=== PATIENT | female | born 1930 | race Caucasian/White ===

== ENCOUNTER → 2016-04-14 | Outpatient (CLI) | payer MEDICARE ==
[~2016-04-14] MED LIST: ALPR0.25 PO; ARTHRITIS PILL PO; CEFD300C3 PO; CEFU250T80 PO; CEFU500T63 PO; FLUC150T2 PO; FLUC200T PO; FURO-124 PO; LATA1OIL MC; LATA2.5D5; LOSA50TA36 PO; NYST1000 PO; OMEP40CA36 PO; PHEN-640 PO; SUCR1TAB PO
--- OUTSIDE RECORDS SUMMARY | 2016-04-14 08:19 | XMS REPORT | Continuity of Care Document ---
Author Author [facility] Organization [facility] Address Unknown Phone Unavailable Care Team Providers [employer] G[employer] Name Role Phone NO, LOCAL PHYSICIAN PCP Unavailable Insurance Providers Payer Name Policy Number Subscriber Name Relationship [employer] [id number] Marguerite Multani 18 Self / Same As Patient [facility] Advantage [facility] [id number] Marguerite Multani 18 Self / Same As Patient Advance Directives Directive Response Recorded Date/Time Advance Directives No 03/28/16 9:55am Resuscitation Status Full Code 03/28/16 9:55am Chief Complaint and Reason for Visit Chief Complaint -Female Reason for Visit Urinary tract infection Problems Active Problems Medical Problem Onset Date Status Urinary tract infection Unknown Acute Medications Current Home Medications Medication Dose Units Route Directions Days/Qty Instructions Start Date Furosemide 40 Mg 40 Mg Oral Daily 03/28/16 [Arthritis Pill] Unknown Dose Oral Daily And Prn 03/28/16 Social History Social History Problem Response Recorded Date/Time Alcohol Use Denies Use 03/28/2016 9:55am Recreational Drug Use No 03/28/2016 9:55am Recent Foreign Travel No 03/28/2016 9:55am Recent Infectious Disease Exposure No 03/28/2016 9:55am Hospitalization with Isolation Denies 03/28/2016 9:55am Smoking Status Never a Smoker 03/28/2016 9:55am Recent Hopitalizations No 03/28/2016 9:55am Hospitalization with Isolation Denies 03/28/2016 9:55am Query Response Start Date Stop Date Smoking Status Never a Smoker Hospital Discharge Instructions No hospital discharge instructions. Plan of Care Discharge Date 03/28/16 11:30am Disposition 01 HOME, SELF-CARE Condition at Discharge Improved Prescriptions See Medication Section Referrals NO,LOCAL PHYSICIAN - Primary Care Physician MAUREEN HUGHES MD - Additional Instructions/Education Antibiotic prescribed. Close follow-up with Dr. Hughes. Return if any problems. All discharge instructions reviewed with patient and/or family. Voiced understanding. Functional Status No functional status results. Allergies, Adverse Reactions, Alerts Allergen Type Severity Reaction Status Last Updated Sulfa (Sulfonamide Antibiotics) ([id number]) Allergy Mild Active nitrofurantoin ([id number]) Adverse Reaction Unknown NAUSEA Active Immunizations No immunization records. Vital Signs Acute Vital Signs Vital Response Date/Time Temperature (Fahrenheit) 97.8 degrees F (97.6 - 99.5) 03/28/2016 11:22am Temperature (Calculated Celsius) 36.86693 degrees C (36.4 - 37.5) 03/28/2016 11:22am Pulse Rate (adult) 82 bpm (60 - 90) 03/28/2016 11:22am Respiratory Rate 18 bpm ( - 24) 03/28/2016 11:22am O2 Sat by Pulse Oximetry 98 % (88 - 100) 03/28/2016 11:22am Blood Pressure 128/70 mm Hg 03/28/2016 11:22am Blood Pressure Mean 89 mm Hg 03/28/2016 9:55am Pain Numeric Pain Scale 3 03/28/2016 11:22am Height (Feet) 5 feet 03/28/2016 9:55am Height (Inches) 3 inches 03/28/2016 9:55am Height (Calculated Centimeters) 160.990884 cm 03/28/2016 9:55am Weight (Pounds) 155 pounds 03/28/2016 9:55am Weight (Calculated Kilograms) 70.251794 kilograms 03/28/2016 9:55am Capillary Refill Capillary Refill Less Than 3 Seconds 03/28/2016 9:55am Height 5 ft 3 in Weight 155 lb Body Mass Index 27.5 kg/m^2 Results Laboratory Results Test Name Result Units Flags Reference Collection Date/Time Result Date/ Time Comments Urine Color YELLOW 03/28/2016 10:10am 03/28/2016 10:42am Urine Clarity CLEAR 03/28/2016 10:10a03/28/2016 10:42am Urine pH 8 5-9 03/28/2016 10:10am 03/28/2016 10:42am Urine Specific [place] 1.010 * 1.016-1.022 03/28/2016 10:10am 2015 10:42am Urine Protein NEGATIVE NEGATIVE 03/28/2016 10:10a03/28/2016 10: 42am Urine Glucose (UA) NEGATIVE NEGATIVE 03/28/2016 10:10a03/28/2016 10 :42am Urine RBC (Auto) NEGATIVE NEGATIVE 03/28/2016 10:10a03/28/2016 10: 42am Urine Ketones NEGATIVE NEGATIVE 03/28/2016 10:10a03/28/2016 10: 42am Urine Nitrite NEGATIVE NEGATIVE 03/28/2016 10:10a03/28/2016 10: 42am Urine Bilirubin NEGATIVE NEGATIVE 03/28/2016 10:10a03/28/2016 10: 42am Urine Urobilinogen NORMAL MG/DL NORMAL 03/28/2016 10:10a03/28/2016 10 :42am Urine Leukocyte Esterase 1+ * NEGATIVE 03/28/2016 10:10a03/28/2016 10 :42am Urine RBC NONE /HPF 03/28/2016 10:10a03/28/2016 10:42am Urine WBC 2-5 /HPF 03/28/2016 10:10am 03/28/2016 10:42am Urine Bacteria FEW /HPF * 03/28/2016 10:10am 03/28/2016 10:42am Urine Squamous Epithelial Cells RARE /HPF 03/28/2016 10:10am 2015 10:42am Urine Crystals NONE /LPF 03/28/2016 10:10am 03/28/2016 10:42am Urine Casts NONE /LPF 03/28/2016 10:10a03/28/2016 10:42am Urine Mucus NEGATIVE /LPF 03/28/2016 10:10am 03/28/2016 10:42am Urine Culture Indicated NO 03/28/2016 10:10am 03/28/2016 10:42am Procedures No known history of procedures. Encounters Encounter Location Arrival/Admit Date Discharge/Depart Date Attending Provider Departed Emergency Room [facility] 03/28/16 9:48am 03/28 11:30am CATHRYN BERNABE MD Recent Diagnosis
--- NOTE | 2016-04-14 09:05 | Diagnostic Imaging Report ---
PROCEDURE: CT abdomen and pelvis without contrast. TECHNIQUE: Multiple contiguous axial images were obtained through the abdomen and pelvis without the use of intravenous contrast. INDICATION: Bladder infections and diarrhea. FINDINGS: The lung bases appear clear. The liver demonstrates a hypodense lesion in the left hepatic lobe measuring 1 cm with low-attenuation favored to be a cyst. Scattered calcified granulomas are seen. Cholecystectomy clips noted. The spleen is not enlarged. The pancreas and the adrenal glands appear unremarkable. The kidneys demonstrate no hydronephrosis or stones. There is a 2.6-cm cystic lesion in the left kidney which appears fairly homogeneous. No obvious solid mass demonstrated on this unenhanced exam. There are multiple calcifications in the pelvis compatible with phleboliths. The uterus and adnexa appear grossly unremarkable. There is diverticulosis. No diverticulitis. The appendix is normal. No free fluid or fluid collection of significance is seen in the abdomen or pelvis. The abdominal aorta is normal in caliber. No para-aortic significantly enlarged lymph node is seen. The osseous structures demonstrate degenerative changes. IMPRESSION: 1. No urinary tract stones or hydronephrosis. 2. Diverticulosis. No diverticulitis. Dictated by: Dictated on workstation # [id number]
== END ==
LOC: RAD 08:16
PROVIDERS: ATTEND Urology
DX: N39.0 Urinary tract infection, site not specified (principal); K57.30 Diverticulosis of large intestine without perforation or abscess without bleeding
CPT/HCPCS: 74176

== ENCOUNTER 2016-06-28 10:21 | Emergency (ER) | payer MEDICARE ==
[~2016-06-28] VITALS: Ht 160 cm; Wt 68.0 kg
[~2016-06-28 10:21] MED LIST changes: -ALPR0.25 PO; -CEFD300C3 PO; -CEFU250T80 PO; -CEFU500T63 PO; -FLUC150T2 PO; -FLUC200T PO; -LATA1OIL MC; -LATA2.5D5; -LOSA50TA36 PO; -NYST1000 PO; -OMEP40CA36 PO; -PHEN-640 PO; -SUCR1TAB PO
[2016-06-28] MEDS ORDERED: LATA2.5D5 (10:38)
[2016-06-28] MEDS ORDERED: SUCR1TAB PO (10:42)
[2016-06-28] MEDS ORDERED: NYST1000 PO (10:42)
[2016-06-28] MEDS ORDERED: OMEP40CA36 PO (10:42)
[2016-06-28] MEDS ORDERED: ALPR0.25 PO (10:42)
[2016-06-28] MEDS ORDERED: CEFD300C3 PO (10:42)
[2016-06-28] MEDS ORDERED: LATA1OIL MC (10:42)
[2016-06-28] MEDS ORDERED: FLUC150T2 PO (10:42)
[2016-06-28] MEDS ORDERED: CEFU250T80 PO (10:42)
[2016-06-28] MEDS ORDERED: LOSA50TA36 PO (10:42)
[2016-06-28 11:02] LABS: BILIRUBIN,URINE NEGATIVE (NEGATIVE); KETONES,URINE NEGATIVE (NEGATIVE); LEUKOCYTE ESTERASE ,URINE NEGATIVE (NEGATIVE); NITRITE,URINE NEGATIVE (NEGATIVE); PH,URINE 7 (5-9); PROTEIN,URINE NEGATIVE (NEGATIVE); UROBILINOGEN,URINE NORMAL (NORMAL)
[2016-06-28 11:12] LABS: WBC,URINE RARE /HPF
[2016-06-28 11:34] LABS: BASOPHILS % (AUTO) 0 % (0-10); EOSINOPHILS # (AUTO) 0.1 10^3/uL (0.0-0.3); EOSINOPHILS % (AUTO) 1 % (0-10); LYMPHOCYTES # (AUTO) 1.1 X 10^3 (1.0-4.0); LYMPHOCYTES % (AUTO) 14 % (12-44); MEAN CORPUSCULAR HEMOGLOBIN 34 PG (25-34); MEAN CORPUSCULAR HGB CONC 35 G/DL (32-36); MEAN CORPUSCULAR VOLUME 97 FL (80-99); MEAN PLATELET VOLUME 9.6 FL (7.4-10.4); MONOCYTES # (AUTO) 0.9 X 10^3 (0.0-1.0); MONOCYTES % (AUTO) 11 % (0-12); NEUTROPHILS # (AUTO) 6.2 X 10^3 (1.8-7.8); NEUTROPHILS % (AUTO) 75 % (42-75); PLATELET COUNT 265 10^3/uL (130-400); RED BLOOD COUNT 3.89 10^6/uL (4.35-5.85); RED CELL DISTRIBUTION WIDTH 13.2 % (10.0-14.5); WHITE BLOOD COUNT 8.3 10^3/uL (4.3-11.0)
[2016-06-28 11:43] LABS: PROTHROMBIN TIME PATIENT 12.9 SEC (12.2-14.7)
--- NOTE | 2016-06-28 11:48 | Diagnostic Imaging Report ---
INDICATION: Weakness. FINDINGS: Examination of the chest in the PA and lateral projections fails to reveal evidence of active parenchymal pathology or pleural effusion. The cardiac silhouette is normal. IMPRESSION: Negative chest. Dictated by: Dictated on workstation # [id number]
--- NOTE | 2016-06-28 11:48 | Diagnostic Imaging Report ---
PROCEDURE: CT head without contrast. TECHNIQUE: Multiple contiguous axial images were obtained through the brain without the use of intravenous contrast. INDICATION: UTI. FINDINGS: Noncontrasted study shows diffuse cortical atrophy. Periventricular white matter changes are present. Ventricles are not dilated. There is no intracranial hemorrhage. There is no extra-axial fluid collection. Basal cisterns are clear. Pituitary is not enlarged. CP angles appear normal. Mastoid air cells are well-aerated. There is some mucosal edema of the ethmoid sinuses. Bone windows show no evidence of calvarial fracture. IMPRESSION: 1. Generalized cortical atrophy with white matter changes consistent with chronic small vessel disease. No acute abnormalities are demonstrated. Dictated by: Dictated on workstation # [id number]
--- NOTE | 2016-06-28 11:53 | ED General ---
General Chief Complaint: -Female Stated Complaint: WEAKNESS,POSSIBLE BLADDER INFECTION Nursing Triage Note: AMBULATED TO ROOM 10 WITHOUT DIFFICULTY AND ABLE TO GO TO THE BATHROOM AND GIVE A SAMPLE WITHOUT HELP. CHRONIC HX OF UTI. PT STATES SHE WAS DX ON WEDNESDAY WITH A UTI AND GIVEN A SHOT AND PUT ON CEFDINIR. PT STATES SHE WOKE UP FEELING REAL WEAK BUT HAS BEEN SICK SINCE THE MIDDLE OF JAN. STATES IT NOYOLA WHEN SHE PEES. Nursing Sepsis Screen: No Definite Risk Source of Information: Patient (DIFFICULT , VAGUE HISTORIAN) History of Present Illness Time Seen by Provider: 10:35 Initial Comments HAS HAD WEAKNESS OFF AND ON SINCE JANUARY AND HAS BEEN WEAK AGAIN TODAY SINCE WAKING STATES SHE HAS HAD LOW SODIUM IN THE PAST, BUT DRINKS 2 SMALL GLASSES OF PEDIALYTE A DAY, ALSO DRINKS "ALOT" OF WATER--PT STATES AT LEAST 3---8OZ GLASSES OF WATER A DAY PT HAS CHRONIC UTI'S AND BEGAN HAVING BURNING ON URINATION YESTERDAY PT WAS SEEN BY DR. NI WEDNESDAY FOR ROUTINE EXAM, LAB AND UA WERE DONE. PT STATES THE OFFICE CALLED HER ON WEDNESDAY AFTERNOON AND TOLD HER SHE HAD A UTI AND WENT TO OFFICE AND GOT A SHOT OF ANTIBIOTICS AND GIVEN RX FOR CEFUROXIME. PT STATES SHE HAS SEEN DR. HUGHES AND HE GAVE HER RX FOR MAINTENANCE ANTIBIOTIC, WHICH SHE HAS NOT STARTED YET PT WENT TO [facility] 1 WEEK AGO TODAY AND WAS DX AND TREATED FOR THRUSH WITH ONE DOSE OF DIFLUCAN. DR. NI WROTE RX FOR MORE PILLS, WHICH PT IS STILL TAKING. NO ABDOMINAL PAIN OR BACK PAIN C/O NAUSEA OFF AND ON ,BUT NO PROBLEMS EATING AND ATE BREAKFAST THIS MORNING NO VOMITING OR DIARRHEA NO FEVER STATES SHE HASN'T BEEN ABLE TO SLEEP FOR THE LAST 2 NIGHTS, FOR NO PARTICULAR REASON ( YET STATES SHE FELT WEAK WHEN SHE WOKE UP THIS AM) . PCP: DR. NI Allergies and Home Medications Allergies Coded Allergies: Sulfa (Sulfonamide Antibiotics) (Verified Allergy, Mild, 03/28/16) nitrofurantoin (Verified Adverse Reaction, Unknown, NAUSEA, 03/28/16) Home Medications Alprazolam 0.25 Mg Tablet, 0.25 MG PO HS, (Reported) Cefdinir 300 Mg Capsule, 300 MG PO BID, (Reported) Cefuroxime Axetil 250 Mg Tablet, 250 MG PO BID, (Reported) Fluconazole 150 Mg Tablet, 150 MG PO WEEK, (Reported) Latanoprost 2.5 Ml Drops, #3 (Reported) Latanoprost 1 Gm Oil, 1 GM MC HS, (Reported) Losartan Potassium 50 Mg Tablet, 50 MG PO DAILY, (Reported) Nystatin 100,000 Unit/1 Ml Oral.susp, 100,000 UNIT PO QID, (Reported) Omeprazole 40 Mg Capsule.dr, 40 MG PO DAILY, (Reported) Sucralfate 1 Gm Tablet, 1 GM PO TIDAC, (Reported) Constitutional: see HPI, No chills, No diaphoresis, No dizziness, No fever, malaise, weakness EENTM: other (NO THRUSH SYMPTOMS AT THIS TIME), see HPI Respiratory: no symptoms reported Cardiovascular: no symptoms reported Gastrointestinal: see HPI, No abdominal pain, No hematemesis, No loss of appetite, No melena, nausea, No vomiting Genitourinary: see HPI Musculoskeletal: no symptoms reported, No back pain, No muscle pain, No neck pain Skin: no symptoms reported Psychiatric/Neurological: No Symptoms Reported, Denies Headache, Denies Numbness, Denies Paresthesia, Denies Seizure, Denies Tingling, Denies Tremors, Denies Weakness Hematologic/Lymphatic: No Symptoms Reported Immunological/Allergic: no symptoms reported Past Dxvqdmf-Rsiruj-Gnhcmw Hx Patient Social History Alcohol Use: Denies Use Recreational Drug Use: No Smoking Status: Never a Smoker Recent Foreign Travel: No Contact w/Someone Who Travel: No Recent Infectious Disease Expo: No Recent Hopitalizations: No Immunizations Up To Date Date of Influenza Vaccine: Jan 04, 2016 Surgeries HX Surgeries: Yes Surgeries: Adenoidectomy, Gallbladder, Tonsillectomy Respiratory Hx Respiratory Disorders: No Cardiovascular Hx Cardiac Disorders: Yes Cardiac Disorders: Hypertension Neurological Hx Neurological Disorders: No Gastrointestinal Hx Gastrointestinal Disorders: Yes Gastrointestinal Disorders: Gastroesophageal Reflux Musculoskeletal Hx Musculoskeletal Disorders: Yes Musculoskeletal Disorders: Arthritis Endocrine Hx Endocrine Disorders: No HEENT HX ENT Disorders: No Cancer Hx Cancer: No Psychosocial Hx Psychiatric Problems: Yes Behavioral Health Disorders: Anxiety Physical Exam Vital Signs Vital Sign - Last 12Hours 06/28/16 10:30 Temp 99.0 Pulse 81 Resp 16 B/P (MAP) 133/100 Capillary Refill : Less Than 3 Seconds General Appearance: No Apparent Distress, WD/WN, Other (SMILING, VERY TALKATIVE , AMBULATES AND CHANGES POSITIONS VERY QUICKLY WITHOUT DIFFICULTY. DOES NOT OUTWARDLY APPEAR WEAK OR LETHARGIC) HEENT: PERRL/EOMI, Normal ENT Inspection, Other (NO EVIDENCE OF THRUSH AT THIS TIME) Neck: Full Range of Motion, Normal Inspection, Non Tender, Supple, Carotid Bruit (ON RIGHT) Respiratory: Normal Breath Sounds, No Accessory Muscle Use, No Respiratory Distress Cardiovascular: Regular Rate, Rhythm, No Edema, No JVD, No Murmur, Normal Peripheral Pulses Gastrointestinal: Normal Bowel Sounds, No Organomegaly, No Pulsatile Mass, Non Tender, Soft Back: Normal Inspection, No CVA Tenderness, No Vertebral Tenderness Extremity: Normal Capillary Refill, Normal Inspection, Normal Range of Motion, Non Tender, No Calf Tenderness, Pedal Edema (TRACE) Neurologic/Psychiatric: Alert, Oriented x3, No Motor/Sensory Deficits, Normal Mood/Affect, 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 services 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-XII Norm as Tested Reflexes: 2+ Bicep (R), 2+ Bicep (L), 2+ Knee (R), 2+ Knee (L) Skin: Normal Color, Warm/Dry Progress/Results/Core Measures Results/Orders Lab Results Laboratory Tests Test 06/28/16 10:25 06/28/16 11:20 Range/Units Urine Color YELLOW Urine Clarity CLEAR Urine pH 7 5-9 Urine Specific [place] 1.010 L 1.016-1.022 Urine Protein NEGATIVE NEGATIVE Urine Glucose (UA) NEGATIVE NEGATIVE Urine Ketones NEGATIVE NEGATIVE Urine Nitrite NEGATIVE NEGATIVE Urine Bilirubin NEGATIVE NEGATIVE Urine Urobilinogen NORMAL NORMAL MG/DL Urine Leukocyte Esterase NEGATIVE NEGATIVE Urine RBC (Auto) NEGATIVE NEGATIVE Urine RBC NONE /HPF Urine WBC RARE /HPF Urine Squamous Epithelial Cells 5-10 /HPF Urine Crystals NONE /LPF Urine Bacteria NEGATIVE /HPF Urine Casts NONE /LPF Urine Mucus NEGATIVE /LPF Urine Culture Indicated NO White Blood Count 8.3 4.3-11.0 10^3/uL Red Blood Count 3.89 L 4.35-5.85 10^6/uL Hemoglobin 13.3 11.5-16.0 G/DL Hematocrit 38 35-52 % Mean Corpuscular Volume 97 80-99 FL Mean Corpuscular Hemoglobin 34 25-34 PG Mean Corpuscular Hemoglobin Concent 35 32-36 G/DL Red Cell Distribution Width 13.2 10.0-14.5 % Platelet Count 265 130-400 10^3/uL Mean Platelet Volume 9.6 7.4-10.4 FL Neutrophils (%) (Auto) 75 42-75 % Lymphocytes (%) (Auto) 14 12-44 % Monocytes (%) (Auto) 11 0-12 % Eosinophils (%) (Auto) 1 0-10 % Basophils (%) (Auto) 0 0-10 % Neutrophils # (Auto) 6.2 1.8-7.8 X 10^3 Lymphocytes # (Auto) 1.1 1.0-4.0 X 10^3 Monocytes # (Auto) 0.9 0.0-1.0 X 10^3 Eosinophils # (Auto) 0.1 0.0-0.3 10^3/uL Basophils # (Auto) 0.0 0.0-0.1 10^3/uL Prothrombin Time 12.9 12.2-14.7 SEC INR Comment 1.0 0.8-1.4 Activated Partial Thromboplast Time 22 L 24-35 SEC Sodium Level 129 L 135-145 MMOL/L Potassium Level 4.3 3.6-5.0 MMOL/L Chloride Level 96 L 98-107 MMOL/L Carbon Dioxide Level 23 21-32 MMOL/L Anion Gap 10 5-14 MMOL/L Blood Urea Nitrogen 19 H 7-18 MG/DL Creatinine 0.84 0.60-1.30 MG/DL Estimat Glomerular Filtration Rate > 60 BUN/Creatinine Ratio 23 Glucose Level 97 70-105 MG/DL Calcium Level 9.2 8.5-10.1 MG/DL Magnesium Level 1.8 1.8-2.4 MG/DL Total Bilirubin 0.4 0.1-1.0 MG/DL Aspartate Amino Transf (AST/SGOT) 22 5-34 U/L Alanine Aminotransferase (ALT/SGPT) 18 0-55 U/L Alkaline Phosphatase 47 40-136 U/L Troponin I < 0.30 <0.30 NG/ML Total Protein 6.3 L 6.4-8.2 G/DL Albumin 3.9 3.2-4.5 G/DL TSH [place] Testing 0.85 0.35-4.94 UIU/ML My Orders Orders - FRANCHESCA COTTER DO Ua Culture If Indicated (06/28/16 10:33) Saline Lock/Iv-Start (06/28/16 11:05) Ekg Tracing (06/28/16 11:05) Monitor-Rhythm Ecg Trace Only (06/28/16 11:05) Ct Head Wo (06/28/16 11:05) Cbc With Automated Diff (06/28/16 11:05) Comprehensive Metabolic Panel (06/28/16 11:05) Magnesium (06/28/16 11:05) Protime With Inr (06/28/16 11:05) Partial Thromboplastin Time (06/28/16 11:05) Thyroid Analyzer (06/28/16 11:05) Troponin I (06/28/16 11:05) Chest Pa/Lat (2 View) (06/28/16 11:05) Saline Lock/Iv-Start (06/28/16 12:06) Ns Iv 1000 Ml (Sodium Chloride 0.9%) (06/28/16 12:06) Medications Given in ED Current Medications Medications Dose Ordered Sig/Linda Route Start Time Stop Time Status Last Admin Dose Admin Sodium Chloride 1,000 ml @ 0 mls/hr Q0M ONCE IV 06/28/16 12:06 06/28/16 12:22 DC 06/28/16 12:30 1,000 MLS/HR Vital Signs/I&O Vital Sign - Last 12Hours 06/28/16 10:30 Temp 99.0 Pulse 81 Resp 16 B/P (MAP) 133/100 Blood Pressure Mean: 111 Progress Note : Progress Note UNEVENTFUL ER STAY--PT VERY AWAKE/ ALERT AND TALKATIVE THROUGHOUT ER STAY ECG Initial ECG Impression Time: 11:10 Initial ECG Rate: 72 Initial ECG Rhythm: Normal Sinus Initial ECG Comparisson: No Previous ECG Available Diagnostic Imaging Comments CXR--NO ACUTE PROCESS CT HEAD--NO ACUTE PROCESS, CHRONIC SMALL VESSEL DISEASE PER RADIOLOGIST REPORTS @ 1153 Reviewed: Reviewed by Me Departure Impression Impression: Primary Impression: CHRONIC GENERALIZED WEAKNESS Additional Impression: Hyponatremia Disposition: 01 HOME, SELF-CARE Condition: Stable Departure-Patient Inst. Referrals: SAMUEL NI MD (PCP/Family) Primary Care Physician Patient Instructions: Generalized Weakness (DC), Hyponatremia (DC) Add. Discharge Instructions: TAKE YOUR MEDICATIONS PRESCRIBED DRINK AT LEAST 24 OZ OF GATROADE A DAY FOLLOW UP WITH DR. NI IN 1-2 DAYS FOR FURTHER CARE All discharge instructions reviewed with patient and/or family. Voiced understanding. FRANCHESCA COTTER 26, 2017 11:53
[2016-06-28 11:54] LABS: ALANINE AMINOTRANSFERASE 18 U/L (0-55); ALBUMIN 3.9 G/DL (3.2-4.5); ANION GAP 10 MMOL/L (5-14); ASPARTATE AMINO TRANSFERASE 22 U/L (5-34); BILIRUBIN,TOTAL 0.4 MG/DL (0.1-1.0); BLOOD UREA NITROGEN 19 MG/DL (7-18); BUN/CREATININE RATIO 23; CALCIUM 9.2 MG/DL (8.5-10.1); CARBON DIOXIDE 23 MMOL/L (21-32); CHLORIDE 96 MMOL/L (98-107); CREATININE SERUM 0.84 MG/DL (0.60-1.30); GFR ESTIMATED > 60; GLUCOSE 97 MG/DL (70-105); MAGNESIUM 1.8 MG/DL (1.8-2.4); SODIUM 129 MMOL/L (135-145); TOTAL PROTEIN 6.3 G/DL (6.4-8.2)
[2016-06-28 11:58] LABS: POTASSIUM 4.3 MMOL/L (3.6-5.0)
[2016-06-28] MEDS ORDERED: NS IV 1000 ML 1,000 ML IV ONE (12:06)
[2016-06-28 12:13] LABS: TROPONIN I < 0.30 NG/ML (<0.30)
[2016-06-28 14:46] VITALS: BP 150/72
== END 2016-06-28 14:46 | disposition home or self-care (01) ==
LOC: EDUNIT# 10:21 → ER 10:22
DX: R53.1 Weakness (principal); E87.1 Hypo-osmolality and hyponatremia; I10 Essential (primary) hypertension
CPT/HCPCS: 36415; 70450; 71020; 80053; 81000; 83735; 84443; 84484; 85025; 85610; 85730; 93005; 93041; 96360; 96361

== ENCOUNTER 2016-07-19 08:49 | Emergency (ER) | payer MEDICARE ==
[~2016-07-19] VITALS: Ht 160 cm; Wt 65.8 kg
[~2016-07-19 08:49] MED LIST changes: +ALPR0.25 PO; +CEFD300C3 PO; +CEFU250T80 PO; +FLUC150T2 PO; +LATA1OIL MC; +LATA2.5D5; +LOSA50TA36 PO; +NYST1000 PO; +OMEP40CA36 PO; +SUCR1TAB PO
[2016-07-19 09:07] LABS: BILIRUBIN,URINE NEGATIVE (NEGATIVE); KETONES,URINE NEGATIVE (NEGATIVE); LEUKOCYTE ESTERASE ,URINE 3+ (NEGATIVE); NITRITE,URINE NEGATIVE (NEGATIVE); PH,URINE 7 (5-9); PROTEIN,URINE 1+ (NEGATIVE); UROBILINOGEN,URINE NORMAL (NORMAL)
[2016-07-19 09:17] LABS: SQUAMOUS EPITHELIAL CELL,UR 25-50 /HPF; WBC,URINE >100 /HPF
[2016-07-19] MEDS ORDERED: CEFU500T63 PO (09:28)
[2016-07-19] MEDS ORDERED: FLUC200T PO (09:28)
[2016-07-19] MEDS ORDERED: PHEN-640 PO (09:28)
--- NOTE | 2016-07-19 09:29 | ED GU-Female ---
General Chief Complaint: -Female Stated Complaint: BLADDER INFECTION Nursing Triage Note: c/o dysuria x 2-3 days. Denies fever/chills. Gets fatigued easily. Feels anxious. Nursing Sepsis Screen: No Definite Risk Source: patient (PT IS VERY LIMITED HISTORIAN ) History of Present Illness Time seen by provider: 09:00 Initial Comments C/O UTI SYMPTOMS X 2-3 DAYS BURNING, URGENCY, FREQUENCY HAS HISTORY OF FREQUENT UTI'S STATES SHE RECENTLY HAD A UTI AND WAS GIVEN RX FOR UNKNOWN ANTIBIOTIC, BUT ONLY TOOK IT FOR 3 DAYS BECAUSE SHE DIDN'T LIKE THE WAY IT MADE HER FEEL, BUT CANNOT STATE WHAT SYMPTOMS SHE HAD STATES DR. HUGHES ALSO PRESCRIBED WHAT SOUNDS LIKE A MAINTENANCE ANTIBIOTIC, BUT SHE ALSO STOPPED IT AFTER DAYS FOR SAME REASON. PT HAS NO IDEA WHAT THESE MEDICATIONS WERE OR HOW LONG AGO SHE WAS PRESCRIBED THEM STATES THE LAST TIME SHE SAW DR. NI, HER URINE WAS "CLEAR" NO FEVER NO ABDOMINAL OR BACK PAIN C/O FATIGUE AND ANXIETY PCP: DR. NI UROLOGIST: DR. HUGHES Allergies and Home Medications Allergies Coded Allergies: Sulfa (Sulfonamide Antibiotics) (Verified Allergy, Mild, 03/28/16) nitrofurantoin (Verified Adverse Reaction, Unknown, NAUSEA, 03/28/16) Home Medications Alprazolam 0.25 Mg Tablet, 0.25 MG PO HS, (Reported) Cefdinir 300 Mg Capsule, 300 MG PO BID, (Reported) Cefuroxime Axetil 250 Mg Tablet, 250 MG PO BID, (Reported) Cefuroxime Axetil 500 Mg Tablet, 500 MG PO BID, #30 Prescribed by: FRANCHESCA COTTER on 07/19/16927 Fluconazole 150 Mg Tablet, 150 MG PO WEEK, (Reported) Fluconazole 200 Mg Tablet, 200 MG PO DAILY, #10 Prescribed by: FRANCHESCA COTTER on 07/19/1628 Latanoprost 2.5 Ml Drops, #3 (Reported) Latanoprost 1 Gm Oil, 1 GM MC HS, (Reported) Losartan Potassium 50 Mg Tablet, 50 MG PO DAILY, (Reported) Nystatin 100,000 Unit/1 Ml Oral.susp, 100,000 UNIT PO QID, (Reported) Omeprazole 40 Mg Capsule.dr, 40 MG PO DAILY, (Reported) Phenazopyridine HCl 200 Mg Tablet, 1 TAB PO TID, #15 Prescribed by: FRANCHESCA COTTER on 07/19/16 0928 Sucralfate 1 Gm Tablet, 1 GM PO TIDAC, (Reported) Constitutional: see HPI, malaise Respiratory: no symptoms reported Cardiovascular: no symptoms reported Gastrointestinal: no symptoms reported Genitourinary: see HPI, burning Musculoskeletal: no symptoms reported Skin: no symptoms reported Psychiatric/Neurological: See HPI, Anxiety Endocrine: No Symptoms Reported Hematologic/Lymphatic: No Symptoms Reported Past Njzqjrg-Obfxky-Yogwjr Hx Patient Social History Alcohol Use: Denies Use Recreational Drug Use: No Recent Foreign Travel: No Contact w/Someone Who Travel: No Recent Infectious Disease Expo: No Recent Hopitalizations: No Immunizations Up To Date Date of Influenza Vaccine: Jan 04, 2016 Surgeries HX Surgeries: Yes Surgeries: Adenoidectomy, Gallbladder, Tonsillectomy Respiratory Hx Respiratory Disorders: No Cardiovascular Hx Cardiac Disorders: Yes Cardiac Disorders: Hypertension Neurological Hx Neurological Disorders: No Genitourinary Hx Genitourinary Disorders: Yes Genitourinary Disorders: Bladder Infection, UTI-Chronic Gastrointestinal Hx Gastrointestinal Disorders: Yes Gastrointestinal Disorders: Gastroesophageal Reflux Musculoskeletal Hx Musculoskeletal Disorders: Yes Musculoskeletal Disorders: Arthritis Endocrine Hx Endocrine Disorders: No HEENT HX ENT Disorders: No Cancer Hx Cancer: No Psychosocial Hx Psychiatric Problems: Yes Behavioral Health Disorders: Anxiety Integumentary HX Skin/Integumentary Disorder: No Blood Transfusions Hx Blood Disorders: No Physical Exam Vital Signs Vital Sign - Last 12Hours 07/19/16 09:10 Temp 97.6 Pulse 83 Resp 16 B/P (MAP) 147/83 Pulse Ox 98 O2 Delivery Room Air Capillary Refill : Less Than 3 Seconds Cardiovascular: regular rate, rhythm, no murmur Respiratory: no respiratory distress, no accessory muscle use Gastrointestinal: normal bowel sounds, non tender, soft, no organomegaly Back: normal inspection, no CVA tenderness, no vertebral tenderness Extremities: normal inspection, no pedal edema Neurologic/Psychiatric: 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-XII nml as tested, no motor/sensory deficits, alert, normal mood/affect, oriented x 3 (LIMITED MEMORY) Skin: normal color, warm/dry, No rash Progress/Results/Core Measures Results/Orders Lab Results Laboratory Tests Test 07/19/16 09:00 Range/Units Urine Color YELLOW Urine Clarity CLOUDY H Urine pH 7 5-9 Urine Specific [place] 1.010 L 1.016-1.022 Urine Protein 1+ H NEGATIVE Urine Glucose (UA) NEGATIVE NEGATIVE Urine Ketones NEGATIVE NEGATIVE Urine Nitrite NEGATIVE NEGATIVE Urine Bilirubin NEGATIVE NEGATIVE Urine Urobilinogen NORMAL NORMAL MG/DL Urine Leukocyte Esterase 3+ H NEGATIVE Urine RBC (Auto) 2+ H NEGATIVE Urine RBC NONE /HPF Urine WBC >100 H /HPF Urine Squamous Epithelial Cells 25-50 H /HPF Urine Crystals NONE /LPF Urine Bacteria FEW H /HPF Urine Casts NONE /LPF Urine Mucus NEGATIVE /LPF Urine Other 2-5 TRANS EPIS /HPF Urine Culture Indicated NO My Orders Orders - FRANCHESCA COTTER DO Ua Culture If Indicated (07/19/16 08:55) Vital Signs/I&O Blood Pressure Mean: 104 Departure Impression Impression: Primary Impression: Urinary tract infection Disposition: HOME, SELF-CARE Condition: Stable Departure-Patient Inst. Referrals: SAMUEL NI MD (PCP/Family) Primary Care Physician Patient Instructions: Urinary Tract Infection, Adult (DC) Add. Discharge Instructions: LOTS OF CLEAR LIQUIDS--NO COFFEE, POP OR TEA FOLLOW UP WITH DR. NI IN 3-4 DAYS FRO RECHECK All discharge instructions reviewed with patient and/or family. Voiced understanding. Scripts Fluconazole (Diflucan) 200 Mg Tablet 200 MG PO DAILY for FOR YEAST INFECTION, #10 TAB Prov: FRANCHESCA COTTER DO 07/19/16 Phenazopyridine HCl (Pyridium) 200 Mg Tablet 1 TAB PO TID for BLADDER DISCOMFORT, #15 TAB Prov: FRANCHESCA COTTER DO 07/19/16 Cefuroxime Axetil (Cefuroxime) 500 Mg Tablet 500 MG PO BID, #30 TAB Prov: FRANCHESCA COTTER DO 07/19/16 FARNCHESCA COTTER DO Jul 19, 2016 09:28
[2016-07-19 09:40] VITALS: BP 140/7
== END 2016-07-19 09:40 | disposition home or self-care (01) ==
LOC: EDUNIT# 08:49 → ER 08:51
DX: N39.0 Urinary tract infection, site not specified (principal); I10 Essential (primary) hypertension; Z79.899 Other long term (current) drug therapy
CPT/HCPCS: 81000; 99282

== ENCOUNTER 2016-08-06 10:00 | Emergency (ER) | payer MEDICARE ==
[~2016-08-06] VITALS: Ht 160 cm; Wt 65.8 kg
[~2016-08-06 10:00] MED LIST changes: +CEFU500T63 PO; +FLUC200T PO; +PHEN-640 PO
[2016-08-06] MEDS ORDERED: fentaNYL INJECTION 100 MCG/2 ML AMP IVP PRN (11:30)
[2016-08-06 11:43] LABS: BASOPHILS % (AUTO) 0 % (0-10); EOSINOPHILS # (AUTO) 0.1 10^3/uL (0.0-0.3); EOSINOPHILS % (AUTO) 1 % (0-10); LYMPHOCYTES # (AUTO) 1.2 X 10^3 (1.0-4.0); LYMPHOCYTES % (AUTO) 14 % (12-44); MEAN CORPUSCULAR HEMOGLOBIN 34 PG (25-34); MEAN CORPUSCULAR HGB CONC 34 G/DL (32-36); MEAN CORPUSCULAR VOLUME 98 FL (80-99); MEAN PLATELET VOLUME 9.1 FL (7.4-10.4); MONOCYTES # (AUTO) 0.9 X 10^3 (0.0-1.0); MONOCYTES % (AUTO) 10 % (0-12); NEUTROPHILS # (AUTO) 6.7 X 10^3 (1.8-7.8); NEUTROPHILS % (AUTO) 75 % (42-75); PLATELET COUNT 235 10^3/uL (130-400); RED BLOOD COUNT 3.73 10^6/uL (4.35-5.85); RED CELL DISTRIBUTION WIDTH 12.4 % (10.0-14.5); WHITE BLOOD COUNT 8.9 10^3/uL (4.3-11.0)
[2016-08-06 11:54] LABS: BILIRUBIN,URINE NEGATIVE (NEGATIVE); KETONES,URINE NEGATIVE (NEGATIVE); LEUKOCYTE ESTERASE ,URINE 3+ (NEGATIVE); NITRITE,URINE NEGATIVE (NEGATIVE); PH,URINE 7 (5-9); PROTEIN,URINE NEGATIVE (NEGATIVE); UROBILINOGEN,URINE NORMAL (NORMAL); WBC,URINE 25-50 /HPF
[2016-08-06] MEDS ORDERED: cefTRIAXone INJECTION 1,000 MG in NS (IVPB) 50 ML IV ONE (12:45)
--- NOTE | 2016-08-06 12:52 | ED GU-Female ---
General Chief Complaint: -Female Stated Complaint: LOWER ABD/GROIN AREA PAIN Nursing Triage Note: pt reports history chronic uti. seen this am in [facility] office and advised to come to hospital. pt also sees hany but he believes pain is likely gynecological in nature. appt with hr generalist 08/26. pt reports after 6 months unable to deal with discomfort any longer Nursing Sepsis Screen: No Definite Risk Source: patient Exam Limitations: no limitations History of Present Illness Time seen by provider: 11:55 Initial Comments The patient's an 86-year-old white female who presents with complaints of suprapubic pain and fear of another urinary tract infection. She states that she has been suffering from these urinary tract infections for a period of at least 6 months. She has had several visits here with pyuria. She brings a bag of medications as large as a department store shopping bag. She states that she has had difficulties taking multiple medications including Keflex, Cipro, Macrodantin and undoubtedly others. She reports that it was a concern raised that this might be a gynecologic problem more than a urinary tract infection problem. I am unable to tell by analyzing her previous contacts here that there has ever been a sensitivity done on a culture. I attempted to discuss with Dr. Amador at 1155. I was unable to reach anybody by phone or at the office. Subsequently at 1240 I spoke to her by phone. She allowed that the patient had been seen at least once weekly since she had become their clinic patient in May. It appears that she has likely never completed a full course of antibiotics and at this time given the multiple drugs and occasions it would be difficult to project and empiric treatment. Timing/Duration: other Severity/Quality: moderate, severe, aching, burning Location: suprapubic Activities at Onset: eating Sexual King History: not active Associated Symptoms: other (feels bad all over) Allergies and Home Medications Allergies Coded Allergies: Sulfa (Sulfonamide Antibiotics) (Verified Allergy, Mild, 03/28/16) nitrofurantoin (Verified Adverse Reaction, Unknown, NAUSEA, 03/28/16) Home Medications Alprazolam 0.25 Mg Tablet, 0.25 MG PO HS, (Reported) Cefdinir 300 Mg Capsule, 300 MG PO BID, (Reported) Cefuroxime Axetil 250 Mg Tablet, 250 MG PO BID, (Reported) Cefuroxime Axetil 500 Mg Tablet, 500 MG PO BID, #30 Prescribed by: FRANCHESCA COTTER on 07/19/1628 Fluconazole 150 Mg Tablet, 150 MG PO WEEK, (Reported) Fluconazole 200 Mg Tablet, 200 MG PO DAILY, #10 Prescribed by: FRANCHESCA COTTER on 07/19/1628 Latanoprost 2.5 Ml Drops, #3 (Reported) Latanoprost 1 Gm Oil, 1 GM MC HS, (Reported) Losartan Potassium 50 Mg Tablet, 50 MG PO DAILY, (Reported) Nystatin 100,000 Unit/1 Ml Oral.susp, 100,000 UNIT PO QID, (Reported) Omeprazole 40 Mg Capsule.dr, 40 MG PO DAILY, (Reported) Phenazopyridine HCl 200 Mg Tablet, 1 TAB PO TID, #15 Prescribed by: FRANCHESCA COTTER on 07/19/1628 Sucralfate 1 Gm Tablet, 1 GM PO TIDAC, (Reported) Constitutional: see HPI EENTM: no symptoms reported Respiratory: no symptoms reported Cardiovascular: no symptoms reported Gastrointestinal: no symptoms reported Musculoskeletal: muscle weakness Skin: no symptoms reported Psychiatric/Neurological: No Symptoms Reported Endocrine: No Symptoms Reported Hematologic/Lymphatic: No Symptoms Reported Past Znijgup-Axmeqs-Ikgjca Hx Patient Social History Alcohol Use: Denies Use Recreational Drug Use: No Smoking Status: Never a Smoker 2nd Hand Smoke Exposure: No Recent Foreign Travel: No Contact w/Someone Who Travel: No Recent Infectious Disease Expo: No Recent Hopitalizations: No Immunizations Up To Date Date of Influenza Vaccine: Jan 04, 2016 Surgeries HX Surgeries: Yes Surgeries: Adenoidectomy, Gallbladder, Tonsillectomy Respiratory Hx Respiratory Disorders: No Cardiovascular Hx Cardiac Disorders: Yes Cardiac Disorders: Hypertension Neurological Hx Neurological Disorders: No Reproductive System : No Genitourinary Hx Genitourinary Disorders: Yes Genitourinary Disorders: Bladder Infection, UTI-Chronic Gastrointestinal Hx Gastrointestinal Disorders: Yes Gastrointestinal Disorders: Gastroesophageal Reflux Musculoskeletal Hx Musculoskeletal Disorders: Yes Musculoskeletal Disorders: Arthritis Endocrine Hx Endocrine Disorders: No HEENT HX ENT Disorders: No Cancer Hx Cancer: No Psychosocial Hx Psychiatric Problems: Yes Behavioral Health Disorders: Anxiety Integumentary HX Skin/Integumentary Disorder: No Blood Transfusions Hx Blood Disorders: No Physical Exam Vital Signs Vital Sign - Last 12Hours 08/06/16 10:17 Temp 99.3 Pulse 66 Resp 18 B/P (MAP) 142/76 Pulse Ox 96 O2 Delivery Room Air Capillary Refill : Less Than 3 Seconds General Appearance: WD/WN, no apparent distress, other (garrulous) HEENT: normal ENT inspection Neck: full range of motion Cardiovascular: normal peripheral pulses, regular rate, rhythm, no edema, no gallop, no JVD, no murmur Respiratory: chest non-tender Gastrointestinal: normal bowel sounds, non tender, soft, no organomegaly, no pulsatile mass, abnormal bowel sounds Back: normal inspection, no CVA tenderness, no vertebral tenderness, CVA tenderness (R), CVA tenderness (L) Extremities: normal range of motion, non-tender, normal inspection, no pedal edema, no calf tenderness, normal capillary refill, pelvis stable Progress/Results/Core Measures Results/Orders Lab Results Laboratory Tests Test 08/06/16 11:29 08/06/16 11:37 Range/Units Urine Color YELLOW Urine Clarity SLIGHTLY CLOUDY Urine pH 7 5-9 Urine Specific [place] 1.010 L 1.016-1.022 Urine Protein NEGATIVE NEGATIVE Urine Glucose (UA) NEGATIVE NEGATIVE Urine Ketones NEGATIVE NEGATIVE Urine Nitrite NEGATIVE NEGATIVE Urine Bilirubin NEGATIVE NEGATIVE Urine Urobilinogen NORMAL NORMAL MG/DL Urine Leukocyte Esterase 3+ H NEGATIVE Urine RBC (Auto) 1+ H NEGATIVE Urine RBC RARE /HPF Urine WBC 25-50 H /HPF Urine Squamous Epithelial Cells 10-25 H /HPF Urine Crystals NONE /LPF Urine Bacteria LARGE H /HPF Urine Casts NONE /LPF Urine Mucus NEGATIVE /LPF Urine Culture Indicated YES White Blood Count 8.9 4.3-11.0 10^3/uL Red Blood Count 3.73 L 4.35-5.85 10^6/uL Hemoglobin 12.5 11.5-16.0 G/DL Hematocrit 37 35-52 % Mean Corpuscular Volume 98 80-99 FL Mean Corpuscular Hemoglobin 34 25-34 PG Mean Corpuscular Hemoglobin Concent 34 32-36 G/DL Red Cell Distribution Width 12.4 10.0-14.5 % Platelet Count 235 130-400 10^3/uL Mean Platelet Volume 9.1 7.4-10.4 FL Neutrophils (%) (Auto) 75 42-75 % Lymphocytes (%) (Auto) 14 12-44 % Monocytes (%) (Auto) 10 0-12 % Eosinophils (%) (Auto) 1 0-10 % Basophils (%) (Auto) 0 0-10 % Neutrophils # (Auto) 6.7 1.8-7.8 X 10^3 Lymphocytes # (Auto) 1.2 1.0-4.0 X 10^3 Monocytes # (Auto) 0.9 0.0-1.0 X 10^3 Eosinophils # (Auto) 0.1 0.0-0.3 10^3/uL Basophils # (Auto) 0.0 0.0-0.1 10^3/uL My Orders Orders - ALONZO SON MD Ceftriaxone Injection (Rocephin Injectio (08/06/16 12:45) Medications Given in ED Current Medications Medications Dose Ordered Sig/Linda Route Start Time Stop Time Status Last Admin Dose Admin Fentanyl Citrate 25 mcg ONCE PRN IVP 08/06/16 11:30 08/06/16 11:44 25 MCG Vital Signs/I&O Vital Sign - Last 12Hours 08/06/16 10:17 Temp 99.3 Pulse 66 Resp 18 B/P (MAP) 142/76 Pulse Ox 96 O2 Delivery Room Air Blood Pressure Mean: 98 Departure Communication Progress Notes UA showed WBCs 25-50 per high-powered field. Urine RETAIL DEPARTMENT MANAGER is pending. Impression Impression: Primary Impression: Pyuria Disposition: 01 HOME, SELF-CARE Condition: Stable/Unchanged Departure-Patient Inst. Referrals: SAMUEL AMADOR MD (PCP/Family) Primary Care Physician Patient Instructions: Urinary Tract Infection, Adult (DC) Add. Discharge Instructions: All discharge instructions reviewed with patient and/or family. Voiced understanding. Call Dr. Amador tomorrow to obtain results of urinary tract culture Take Omnicef as directed Scripts Cefdinir (Cefdinir) 300 Mg Capsule 300 MG PO BID, #6 CAP Prov: ALONZO SON MD 08/06/16 ALONZO SON MD August 06, 2016 12:52
[2016-08-06] MEDS ORDERED: CEFD300C3 PO (12:57)
[2016-08-06 13:59] VITALS: BP 150/64
== END 2016-08-06 13:59 | disposition home or self-care (01) ==
LOC: EDUNIT# 10:00 → ER 10:03
DX: N39.0 Urinary tract infection, site not specified (principal); I10 Essential (primary) hypertension; K21.9 Gastro-esophageal reflux disease without esophagitis; Z79.899 Other long term (current) drug therapy
CPT/HCPCS: 36415; 81000; 85025; 87077; 87088; 87186; 96365; 96375

== ENCOUNTER 2016-09-11 07:11 | Emergency (ER) | payer MEDICARE ==
[~2016-09-11] VITALS: Ht 162.6 cm; Wt 65.3 kg
--- NOTE | 2016-09-11 07:58 | ED General ---
General Chief Complaint: -Female Stated Complaint: UTI SYMPTOMS NAUSEA Nursing Triage Note: c/o worsening UTI symptoms since Wed. Seen at [facility] office on Wed and started on Trimethoprim. No improvement of symptoms. Low grade fever noted. Hx of chronic intermittant UTIs since last Jan. Nursing Sepsis Screen: No Definite Risk Source of Information: Patient, Caregiver (ESPERANZA LOVE MD) History of Present Illness Time Seen by Provider: 07:30 Initial Comments Here with report of urinary tract symptoms since Wednesday. She has been on a prophylactic antibiotic for the last several days but this is not changed her symptoms. She does present with a low-grade fever. She does describe nausea and feels like she can't eat today. States by all accounts this feels like her urinary tract infections. She does have vague feeling in the bladder area of uncomfortableness. Denies diarrhea. Timing/Duration: 3-4 Days Severity: Moderate Associated Systoms: No Chest Pain, No Cough, Fever/Chills, Nausea/Vomiting, No Shortness of Air, Weakness (ESPERANZA LOVE MD) Allergies and Home Medications Allergies Coded Allergies: Sulfa (Sulfonamide Antibiotics) (Verified Allergy, Mild, 03/28/16) nitrofurantoin (Verified Adverse Reaction, Unknown, NAUSEA, 03/28/16) Home Medications Alprazolam 0.25 Mg Tablet, 0.25 MG PO HS, (Reported) Cefdinir 300 Mg Capsule, 300 MG PO BID, (Reported) Cefdinir 300 Mg Capsule, 300 MG PO BID, #6 Prescribed by: ALONZO SON on 08/06/16 1257 Cefuroxime Axetil 250 Mg Tablet, 250 MG PO BID, (Reported) Cefuroxime Axetil 500 Mg Tablet, 500 MG PO BID, #30 Prescribed by: FRANCHESCA COTTER on 07/19/16 0928 Fluconazole 150 Mg Tablet, 150 MG PO WEEK, (Reported) Fluconazole 200 Mg Tablet, 200 MG PO DAILY, #10 Prescribed by: FRANCHESCA COTTER on 07/19/16 0928 Latanoprost 2.5 Ml Drops, #3 (Reported) Latanoprost 1 Gm Oil, 1 GM MC HS, (Reported) Losartan Potassium 50 Mg Tablet, 50 MG PO DAILY, (Reported) Nystatin 100,000 Unit/1 Ml Oral.susp, 100,000 UNIT PO QID, (Reported) Omeprazole 40 Mg Capsule.dr, 40 MG PO DAILY, (Reported) Phenazopyridine HCl 200 Mg Tablet, 1 TAB PO TID, #15 Prescribed by: FRANCHESCA COTTER on 07/19/16 0928 Sucralfate 1 Gm Tablet, 1 GM PO TIDAC, (Reported) Constitutional: see HPI, No chills, fever, weakness EENTM: no symptoms reported Respiratory: no symptoms reported Cardiovascular: no symptoms reported Gastrointestinal: No diarrhea, nausea, No vomiting Genitourinary: see HPI, frequency, pain : No Musculoskeletal: no symptoms reported Skin: no symptoms reported (ESPERANZA LOVE MD) All Other Systems Reviewed Negative Unless Noted: Yes (ESPERANZA LOVE MD) Past Rfoxnag-Hzkkyp-Ihroka Hx Patient Social History Alcohol Use: Denies Use Recreational Drug Use: No Smoking Status: Never a Smoker 2nd Hand Smoke Exposure: No Recent Foreign Travel: No Contact w/Someone Who Travel: No Recent Infectious Disease Expo: No Recent Hopitalizations: No (ESPERANZA LOVE MD) Immunizations Up To Date Date of Influenza Vaccine: Jan 04, 2016 (ESPERANZA LOVE MD) Surgeries HX Surgeries: Yes Surgeries: Adenoidectomy, Gallbladder, Tonsillectomy (ESPERANZA LOVE MD) Respiratory Hx Respiratory Disorders: No (ESPERANZA LOVE MD) Cardiovascular Hx Cardiac Disorders: Yes Cardiac Disorders: Hypertension (ESPERANZA LOVE MD) Neurological Hx Neurological Disorders: No (ESPERANZA LOVE MD) Genitourinary Hx Genitourinary Disorders: Yes Genitourinary Disorders: Bladder Infection, UTI-Chronic (ESPERANZA LOVE MD) Gastrointestinal Hx Gastrointestinal Disorders: Yes Gastrointestinal Disorders: Gastroesophageal Reflux (ESPERANZA LOVE MD) Musculoskeletal Hx Musculoskeletal Disorders: Yes Musculoskeletal Disorders: Arthritis (ESPERANZA LOVE MD) Endocrine Hx Endocrine Disorders: No (ESPERANZA LOVE MD) HEENT HX ENT Disorders: No (ESPERANZA LOVE MD) Cancer Hx Cancer: No (ESPERANZA LOVE MD) Psychosocial Hx Psychiatric Problems: Yes Behavioral Health Disorders: Anxiety (ESPERANZA LOVE MD) Integumentary HX Skin/Integumentary Disorder: No (ESPERANZA LOVE MD) Blood Transfusions Hx Blood Disorders: No (ESPERANZA LOVE MD) Reviewed Nursing Assessment Reviewed/Agree w Nursing PMH: Yes (ESPERANZA LOVE MD) Family Medical History Significant Family History: No Pertinent Family Hx (ESPERANZA LOVE MD) Physical Exam-Suspected Sepsis Physical Exam Vital Signs Vital Sign - Last 12Hours 09/11/16 07:32 Temp 100.0 Pulse 74 Resp 16 B/P (MAP) 138/70 Pulse Ox 95 (ALONZO SON MD) Vital Signs Capillary Refill : Less Than 3 Seconds (ESPERANZA LOVE MD) Blood Pressure Mean: 92 General Appearance: No Apparent Distress, WD/WN HEENT: PERRL/EOMI, Pharynx Normal Neck: Non Tender, Supple Respiratory: Lungs Clear, Normal Breath Sounds Cardiovascular: Regular Rate, Rhythm, No Murmur Gastrointestinal: Non Tender, Soft Back: Normal Inspection, No CVA Tenderness, No Vertebral Tenderness Extremity: Non Tender, No Calf Tenderness Neurologic/Psychiatric: Alert, Oriented x3 Skin: normal color, warm/dry (ESPERANZA LOVE MD) Focused Exam Lactic Acid Level Laboratory Tests Test 09/11/16 08:00 Lactic Acid Level 1.61 MMOL/L (0.50-2.00) (ALONZO SON MD) Progress/Results/Core Measures Suspected Sepsis Recent Fever Within 48 Hours: No Infection Criteria Present: Suspected New Infection New/Unexplained Altered Menta: No Sepsis Screen: No Definite Risk Sepsis Diagnosis: SIRS Temperature:100.0 Pulse: 74 Respiratory Rate: 16 Blood Pressure 138 /70 Mean: 92 (ESPERANZA LOVE MD) Results/Orders Lab Results Laboratory Tests Test 09/11/16 07:30 09/11/16 08:00 Range/Units Urine Color YELLOW Urine Clarity SLIGHTLY CLOUDY Urine pH 7 5-9 Urine Specific [place] 1.010 L 1.016-1.022 Urine Protein NEGATIVE NEGATIVE Urine Glucose (UA) NEGATIVE NEGATIVE Urine Ketones NEGATIVE NEGATIVE Urine Nitrite NEGATIVE NEGATIVE Urine Bilirubin NEGATIVE NEGATIVE Urine Urobilinogen NORMAL NORMAL MG/DL Urine Leukocyte Esterase 1+ H NEGATIVE Urine RBC (Auto) NEGATIVE NEGATIVE Urine RBC NONE /HPF Urine WBC RARE /HPF Urine Squamous Epithelial Cells 10-25 H /HPF Urine Crystals NONE /LPF Urine Bacteria TRACE /HPF Urine Casts NONE /LPF Urine Mucus NEGATIVE /LPF Urine Culture Indicated NO White Blood Count 6.8 4.3-11.0 10^3/uL Red Blood Count 3.76 L 4.35-5.85 10^6/uL Hemoglobin 12.6 11.5-16.0 G/DL Hematocrit 37 35-52 % Mean Corpuscular Volume 98 80-99 FL Mean Corpuscular Hemoglobin 34 25-34 PG Mean Corpuscular Hemoglobin Concent 34 32-36 G/DL Red Cell Distribution Width 12.6 10.0-14.5 % Platelet Count 223 130-400 10^3/uL Mean Platelet Volume 9.7 7.4-10.4 FL Neutrophils (%) (Auto) 70 42-75 % Lymphocytes (%) (Auto) 17 12-44 % Monocytes (%) (Auto) 11 0-12 % Eosinophils (%) (Auto) 1 0-10 % Basophils (%) (Auto) 1 0-10 % Neutrophils # (Auto) 4.8 1.8-7.8 X 10^3 Lymphocytes # (Auto) 1.2 1.0-4.0 X 10^3 Monocytes # (Auto) 0.7 0.0-1.0 X 10^3 Eosinophils # (Auto) 0.1 0.0-0.3 10^3/uL Basophils # (Auto) 0.0 0.0-0.1 10^3/uL Sodium Level 132 L 135-145 MMOL/L Potassium Level 4.2 3.6-5.0 MMOL/L Chloride Level 97 L 98-107 MMOL/L Carbon Dioxide Level 24 21-32 MMOL/L Anion Gap 11 5-14 MMOL/L Blood Urea Nitrogen 22 H 7-18 MG/DL Creatinine 0.82 0.60-1.30 MG/DL Estimat Glomerular Filtration Rate > 60 BUN/Creatinine Ratio 27 Glucose Level 100 70-105 MG/DL Lactic Acid Level 1.61 0.50-2.00 MMOL/L Calcium Level 9.6 8.5-10.1 MG/DL Total Bilirubin 0.5 0.1-1.0 MG/DL Aspartate Amino Transf (AST/SGOT) 20 5-34 U/L Alanine Aminotransferase (ALT/SGPT) 19 0-55 U/L Alkaline Phosphatase 43 40-136 U/L Total Protein 6.4 6.4-8.2 G/DL Albumin 3.9 3.2-4.5 G/DL (ALONZO SON MD) My Orders Orders - ALONZO SON MD Chest 1 View, Ap/Pa Only (09/11/16 08:57) (ALONZO SON MD) Medications Given in ED Current Medications Medications Dose Ordered Sig/Linda Route Start Time Stop Time Status Last Admin Dose Admin Ceftriaxone Sodium 1000 mg/ Sodium Chloride 50 ml @ 100 mls/hr ONCE ONCE IV 09/11/16 08:00 09/11/16 08:29 DC 09/11/16 08:30 100 MLS/HR Sodium Chloride 500 ml @ 0 mls/hr Q0M ONCE IV 09/11/16 07:31 09/11/16 07:41 DC 09/11/16 08:18 0 MLS/HR (ALONZO SON MD) Vital Signs/I&O Vital Sign - Last 12Hours 09/11/16 07:32 Temp 100.0 Pulse 74 Resp 16 B/P (MAP) 138/70 Pulse Ox 95 (ALONZO SON MD) Vital Signs/I&O Capillary Refill : Less Than 3 Seconds (ESPERANZA LOVE MD) Blood Pressure Mean: 92 Progress Note : Progress Note Seen and evaluated. IV, labs and UA ordered. Normal saline 500 mL bolus. Monitor patient. Rocephin 1 g IV ordered after blood cultures complete. Rocephin given due to patient's nausea and concerns with tolerating initial dosing of antibiotics. (ESPERANZA LOVE MD) Departure Communication Progress Notes UA returned clean. White blood count is normal. Because of the low-grade fever a chest x-ray was done and also was clear. I discussed the patient with Dr. Amadro at 0935 and we have elected to add in 2 days of Pyridium to see if we can reduce her dysuria. (ALONZO SON MD) Impression Impression: Primary Impression: dysuria Disposition: 01 HOME, SELF-CARE Condition: Stable/Unchanged Departure-Patient Inst. Referrals: SAMUEL AMADOR MD (PCP/Family) Primary Care Physician Patient Instructions: Urinary Tract Infection, Adult (DC) Add. Discharge Instructions: All discharge instructions reviewed with patient and/or family. Voiced understanding. Increase fluid intake. Take Pyridium twice daily Scripts Phenazopyridine HCl (Pyridium) 200 Mg Tablet 1 TAB PO twice a day, #6 TAB Prov: ALONZO SON MD 09/11/16 ESPERANZA LOVE MD Sep 11, 2016 07:58 ALONZO SON MD Sep 11, 2016 09:39
[2016-09-11 08:16] LABS: BASOPHILS % (AUTO) 1 % (0-10); EOSINOPHILS # (AUTO) 0.1 10^3/uL (0.0-0.3); EOSINOPHILS % (AUTO) 1 % (0-10); LYMPHOCYTES # (AUTO) 1.2 X 10^3 (1.0-4.0); LYMPHOCYTES % (AUTO) 17 % (12-44); MEAN CORPUSCULAR HEMOGLOBIN 34 PG (25-34); MEAN CORPUSCULAR HGB CONC 34 G/DL (32-36); MEAN CORPUSCULAR VOLUME 98 FL (80-99); MEAN PLATELET VOLUME 9.7 FL (7.4-10.4); MONOCYTES # (AUTO) 0.7 X 10^3 (0.0-1.0); MONOCYTES % (AUTO) 11 % (0-12); NEUTROPHILS # (AUTO) 4.8 X 10^3 (1.8-7.8); NEUTROPHILS % (AUTO) 70 % (42-75); PLATELET COUNT 223 10^3/uL (130-400); RED BLOOD COUNT 3.76 10^6/uL (4.35-5.85); RED CELL DISTRIBUTION WIDTH 12.6 % (10.0-14.5); WHITE BLOOD COUNT 6.8 10^3/uL (4.3-11.0)
[2016-09-11 08:16] LABS: BILIRUBIN,URINE NEGATIVE (NEGATIVE); KETONES,URINE NEGATIVE (NEGATIVE); LEUKOCYTE ESTERASE ,URINE 1+ (NEGATIVE); NITRITE,URINE NEGATIVE (NEGATIVE); PH,URINE 7 (5-9); PROTEIN,URINE NEGATIVE (NEGATIVE); UROBILINOGEN,URINE NORMAL (NORMAL)
[2016-09-11] MEDS: NS IV 500 ML 500 ML IV ONE (08:18)
[2016-09-11 08:30] LABS: WBC,URINE RARE /HPF
[2016-09-11] MEDS: cefTRIAXone INJECTION 1,000 MG in NS (IVPB) 50 ML IV ONE (08:30)
[2016-09-11 08:33] LABS: ALANINE AMINOTRANSFERASE 19 U/L (0-55); ALBUMIN 3.9 G/DL (3.2-4.5); ANION GAP 11 MMOL/L (5-14); ASPARTATE AMINO TRANSFERASE 20 U/L (5-34); BILIRUBIN,TOTAL 0.5 MG/DL (0.1-1.0); BLOOD UREA NITROGEN 22 MG/DL (7-18); BUN/CREATININE RATIO 27; CALCIUM 9.6 MG/DL (8.5-10.1); CARBON DIOXIDE 24 MMOL/L (21-32); CHLORIDE 97 MMOL/L (98-107); CREATININE SERUM 0.82 MG/DL (0.60-1.30); GFR ESTIMATED > 60; GLUCOSE 100 MG/DL (70-105); POTASSIUM 4.2 MMOL/L (3.6-5.0); SODIUM 132 MMOL/L (135-145); TOTAL PROTEIN 6.4 G/DL (6.4-8.2)
--- NOTE | 2016-09-11 09:19 | Diagnostic Imaging Report ---
EXAMINATION: Portable upright radiograph of the chest. INDICATION: Chronic intermittent UTIs. FINDINGS: The lungs are clear. The heart size is at the upper limits of normal. No effusion or pneumothorax. Mediastinum and rosemary appear unremarkable. IMPRESSION: Unremarkable exam. Dictated by: Dictated on workstation # [id number]
[2016-09-11] MEDS ORDERED: PHEN-640 PO (09:41)
[2016-09-11 09:50] VITALS: BP 132/70
== END 2016-09-11 09:50 | disposition home or self-care (01) ==
LOC: EDUNIT# 07:11 → ER 07:13
DX: R30.0 Dysuria (principal); Z87.440 Personal history of urinary (tract) infections; R50.9 Fever, unspecified; I10 Essential (primary) hypertension
CPT/HCPCS: 36415; 71010; 80053; 81000; 83605; 85025; 87040

== ENCOUNTER 2016-10-01 13:42 | Emergency (ER) | payer MEDICARE ==
[~2016-10-01] VITALS: Ht 160 cm; Wt 65.3 kg
[2016-10-01] MEDS ORDERED: LACTATED RINGERS 1,000 ML IV ONE (13:55)
[2016-10-01] MEDS ORDERED: ONDANSETRON 4 MG/2 ML (SDV) Z0FRAN IVP ONE ×2 (14:00→15:30)
[2016-10-01 14:21] LABS: BASOPHILS # (AUTO) 0.1 10^3/uL (0.0-0.1); BASOPHILS % (AUTO) 1 % (0-10); EOSINOPHILS # (AUTO) 0.1 10^3/uL (0.0-0.3); EOSINOPHILS % (AUTO) 2 % (0-10); LYMPHOCYTES # (AUTO) 1.4 X 10^3 (1.0-4.0); LYMPHOCYTES % (AUTO) 18 % (12-44); MEAN CORPUSCULAR HEMOGLOBIN 33 PG (25-34); MEAN CORPUSCULAR HGB CONC 34 G/DL (32-36); MEAN CORPUSCULAR VOLUME 97 FL (80-99); MEAN PLATELET VOLUME 9.4 FL (7.4-10.4); MONOCYTES % (AUTO) 12 % (0-12); NEUTROPHILS # (AUTO) 5.3 X 10^3 (1.8-7.8); NEUTROPHILS % (AUTO) 68 % (42-75); PLATELET COUNT 270 10^3/uL (130-400); RED BLOOD COUNT 3.73 10^6/uL (4.35-5.85); RED CELL DISTRIBUTION WIDTH 12.5 % (10.0-14.5); WHITE BLOOD COUNT 7.9 10^3/uL (4.3-11.0)
[2016-10-01] MEDS ORDERED: TRIM100T PO (14:32)
[2016-10-01 14:35] LABS: KETONES,URINE NEGATIVE (NEGATIVE); LEUKOCYTE ESTERASE ,URINE 2+ (NEGATIVE); NITRITE,URINE POSITIVE (NEGATIVE); PH,URINE 7 (5-9); PROTEIN,URINE NEGATIVE (NEGATIVE); UROBILINOGEN,URINE 4 MG/DL (NORMAL)
[2016-10-01 14:43] LABS: ALANINE AMINOTRANSFERASE 13 U/L (0-55); ALBUMIN 3.8 GM/DL (3.2-4.5); AMYLASE 40 U/L (25-125); ANION GAP 9 MMOL/L (5-14); ASPARTATE AMINO TRANSFERASE 16 U/L (5-34); BILIRUBIN,TOTAL 0.4 MG/DL (0.1-1.0); BLOOD UREA NITROGEN 23 MG/DL (7-18); BUN/CREATININE RATIO 32; CARBON DIOXIDE 24 MMOL/L (21-32); CHLORIDE 96 MMOL/L (98-107); CREATININE SERUM 0.73 MG/DL (0.60-1.30); GFR ESTIMATED > 60; GLUCOSE 116 MG/DL (70-105); LIPASE 18 U/L (8-78); POTASSIUM 4.1 MMOL/L (3.6-5.0); SODIUM 129 MMOL/L (135-145); TOTAL PROTEIN 6.2 GM/DL (6.4-8.2)
[2016-10-01 14:43] LABS: BILIRUBIN,URINE 2+ (NEGATIVE); SQUAMOUS EPITHELIAL CELL,UR 25-50 /HPF
--- NOTE | 2016-10-01 15:20 | Diagnostic Imaging Report ---
EXAMINATION: Upright portable radiograph of the chest. INDICATION: Patient not feeling well. FINDINGS: The lungs are clear. The heart size is borderline enlarged. No effusion or pneumothorax. The mediastinum and rosemary appear unremarkable. IMPRESSION: Borderline cardiac size. Dictated by: Dictated on workstation # [id number]
[2016-10-01] MEDS ORDERED: CATHETER FLUSH 10 ML SYR IV PRN (15:30)
[2016-10-01] MEDS ORDERED: IOHEXOL 350 MG/ML 100 ML (OMNIPAQUE 350) VIAL IV ONE (15:30)
[2016-10-01] MEDS ORDERED: NS 100 ML (IVPB) BAG IV ONE (15:30)
[2016-10-01] MEDS ORDERED: cefTRIAXone INJECTION 1,000 MG in NS (IVPB) 50 ML IV ONE (16:15)
--- NOTE | 2016-10-01 16:23 | Diagnostic Imaging Report ---
PROCEDURE: CT abdomen and pelvis with contrast. TECHNIQUE: Multiple contiguous axial images were obtained through the abdomen and pelvis after administration of intravenous contrast. INDICATION: Weakness. CONTRAST: 100 mL of Omnipaque 350 was administered intravenously. FINDINGS: The lung bases demonstrate no significant abnormality. The liver demonstrates a 1 cm low attenuation lesion in the anterior aspect of the left hepatic lobe, likely a cyst. The spleen, pancreas, and adrenal glands appear unremarkable. Cholecystectomy clips are seen. The kidneys demonstrate symmetric enhancement and contrast excretion. There is no hydronephrosis. Bilateral simple appearing renal cysts are seen. There is diverticulosis, mostly in the sigmoid and distal descending colon, with no evidence of diverticulitis. The appendix is normal. No bowel obstruction. No significant free fluid or fluid collection in the abdomen or pelvis is seen. The uterus and adnexa appear grossly unremarkable. The urinary bladder appears unremarkable. The abdominal aorta is normal in caliber. No periaortic significantly enlarged lymph node is seen. The osseous structures demonstrate degenerative changes in the lower lumbar spine and SI joints. Degenerative changes in the hips are also noted. IMPRESSION: Diverticulosis. No diverticulitis. Dictated by: Dictated on workstation # [id number]
[2016-10-01] MEDS ORDERED: CEFD300C3 PO (16:27)
--- NOTE | 2016-10-01 16:28 | ED General ---
General Chief Complaint: Dizziness/Syncope Stated Complaint: STOMACH PAIN/NAUSEA/SHAKEY Nursing Triage Note: HAS NOT FELT WELL SINCE OCT HAS BEEN ON NUMEROUS ANTIBIOTIC FOR UTI. HAS BEEN SHAKEY AND ANXIOUS. SAW DR BOLDEN THIS WEEK AND SHE INCREASED HER LEXAPRO AND XANAX Nursing Sepsis Screen: No Definite Risk Allergies and Home Medications Allergies Coded Allergies: Sulfa (Sulfonamide Antibiotics) (Verified Allergy, Mild, 03/28/16) tramadol (Verified Allergy, Unknown, 10/01/16) nitrofurantoin (Verified Adverse Reaction, Unknown, NAUSEA, 03/28/16) Home Medications Alprazolam 0.25 Mg Tablet, 0.25 MG PO HS, (Reported) Cefdinir 300 Mg Capsule, 300 MG PO BID, (Reported) Cefdinir 300 Mg Capsule, 300 MG PO BID, #6 Prescribed by: ALONZO SON on 08/06/16 1257 Cefuroxime Axetil 250 Mg Tablet, 250 MG PO BID, (Reported) Cefuroxime Axetil 500 Mg Tablet, 500 MG PO BID, #30 Prescribed by: FRANCHESCA COTTER on 07/19/16 0928 Fluconazole 150 Mg Tablet, 150 MG PO WEEK, (Reported) Fluconazole 200 Mg Tablet, 200 MG PO DAILY, #10 Prescribed by: FRANCHESCA COTTER on 07/19/16 0928 Latanoprost 2.5 Ml Drops, #3 (Reported) Latanoprost 1 Gm Oil, 1 GM MC HS, (Reported) Losartan Potassium 50 Mg Tablet, 50 MG PO DAILY, (Reported) Nystatin 100,000 Unit/1 Ml Oral.susp, 100,000 UNIT PO QID, (Reported) Omeprazole 40 Mg Capsule.dr, 40 MG PO DAILY, (Reported) Phenazopyridine HCl 200 Mg Tablet, 1 TAB PO TID, #15 Prescribed by: FRANHCESCA COTTER on 07/19/16 0928 Phenazopyridine HCl 200 Mg Tablet, 1 TAB PO twice a day, #6 Prescribed by: ALONZO SON on 09/11/16 0941 Sucralfate 1 Gm Tablet, 1 GM PO TIDAC, (Reported) Trimethoprim 100 Mg Tablet, 100 MG PO, (Reported) Past Pzscwob-Vppgok-Bnijig Hx Patient Social History Alcohol Use: Denies Use Recreational Drug Use: No Smoking Status: Never a Smoker 2nd Hand Smoke Exposure: No Recent Foreign Travel: No Contact w/Someone Who Travel: No Recent Infectious Disease Expo: No Recent Hopitalizations: No Immunizations Up To Date Date of Influenza Vaccine: Jan 04, 2016 Surgeries HX Surgeries: Yes Surgeries: Adenoidectomy, Gallbladder, Tonsillectomy Respiratory Hx Respiratory Disorders: No Cardiovascular Hx Cardiac Disorders: Yes Cardiac Disorders: Hypertension Neurological Hx Neurological Disorders: No Genitourinary Hx Genitourinary Disorders: Yes Genitourinary Disorders: Bladder Infection, UTI-Chronic Gastrointestinal Hx Gastrointestinal Disorders: Yes Gastrointestinal Disorders: Gastroesophageal Reflux Musculoskeletal Hx Musculoskeletal Disorders: Yes Musculoskeletal Disorders: Arthritis Endocrine Hx Endocrine Disorders: No HEENT HX ENT Disorders: No Cancer Hx Cancer: No Psychosocial Hx Psychiatric Problems: Yes Behavioral Health Disorders: Anxiety Integumentary HX Skin/Integumentary Disorder: No Blood Transfusions Hx Blood Disorders: No Family Medical History Significant Family History: No Pertinent Family Hx Physical Exam Vital Signs Vital Sign - Last 12Hours 10/01/16 13:48 Temp 99.2 Pulse 74 Resp 18 B/P (MAP) 134/79 Pulse Ox 97 O2 Delivery Room Air Capillary Refill : Less Than 3 Seconds Progress/Results/Core Measures Results/Orders Lab Results Laboratory Tests Test 10/01/16 14:10 10/01/16 14:27 Range/Units White Blood Count 7.9 4.3-11.0 10^3/uL Red Blood Count 3.73 L 4.35-5.85 10^6/uL Hemoglobin 12.3 11.5-16.0 G/DL Hematocrit 36 35-52 % Mean Corpuscular Volume 97 80-99 FL Mean Corpuscular Hemoglobin 33 25-34 PG Mean Corpuscular Hemoglobin Concent 34 32-36 G/DL Red Cell Distribution Width 12.5 10.0-14.5 % Platelet Count 270 130-400 10^3/uL Mean Platelet Volume 9.4 7.4-10.4 FL Neutrophils (%) (Auto) 68 42-75 % Lymphocytes (%) (Auto) 18 12-44 % Monocytes (%) (Auto) 12 0-12 % Eosinophils (%) (Auto) 2 0-10 % Basophils (%) (Auto) 1 0-10 % Neutrophils # (Auto) 5.3 1.8-7.8 X 10^3 Lymphocytes # (Auto) 1.4 1.0-4.0 X 10^3 Monocytes # (Auto) 1.0 0.0-1.0 X 10^3 Eosinophils # (Auto) 0.1 0.0-0.3 10^3/uL Basophils # (Auto) 0.1 0.0-0.1 10^3/uL Sodium Level 129 L 135-145 MMOL/L Potassium Level 4.1 3.6-5.0 MMOL/L Chloride Level 96 L 98-107 MMOL/L Carbon Dioxide Level 24 21-32 MMOL/L Anion Gap 9 5-14 MMOL/L Blood Urea Nitrogen 23 H 7-18 MG/DL Creatinine 0.73 0.60-1.30 MG/DL Estimat Glomerular Filtration Rate > 60 BUN/Creatinine Ratio 32 Glucose Level 116 H 70-105 MG/DL Calcium Level 9.0 8.5-10.1 MG/DL Total Bilirubin 0.4 0.1-1.0 MG/DL Aspartate Amino Transf (AST/SGOT) 16 5-34 U/L Alanine Aminotransferase (ALT/SGPT) 13 0-55 U/L Alkaline Phosphatase 50 40-136 U/L Total Protein 6.2 L 6.4-8.2 GM/DL Albumin 3.8 3.2-4.5 GM/DL Amylase Level 40 25-125 U/L Lipase 18 8-78 U/L Urine Color YELLOW Urine Clarity CLEAR Urine pH 7 5-9 Urine Specific [place] 1.010 L 1.016-1.022 Urine Protein NEGATIVE NEGATIVE Urine Glucose (UA) NEGATIVE NEGATIVE Urine Ketones NEGATIVE NEGATIVE Urine Nitrite POSITIVE H NEGATIVE Urine Bilirubin 2+ H NEGATIVE Urine Urobilinogen 4 H NORMAL MG/DL Urine Leukocyte Esterase 2+ H NEGATIVE Urine RBC (Auto) NEGATIVE NEGATIVE Urine RBC NONE /HPF Urine WBC 10-25 H /HPF Urine Squamous Epithelial Cells 25-50 H /HPF Urine Crystals NONE /LPF Urine Bacteria TRACE /HPF Urine Casts NONE /LPF Urine Mucus NEGATIVE /LPF Urine Culture Indicated YES My Orders Orders - FRANCHESCA COTTER DO Saline Lock/Iv-Start (10/01/16 13:55) Amylase (10/01/16 13:55) Cbc With Automated Diff (10/01/16 13:55) Comprehensive Metabolic Panel (10/01/16 13:55) Lipase (10/01/16 13:55) Ua Culture If Indicated (10/01/16 13:55) Saline Lock/Iv-Start (10/01/16 13:55) Lactated Ringers (Lr 1000 Ml Iv Solution (10/01/16 13:55) Ondansetron Injection (Zofran Injectio (10/01/16 14:00) Urine Culture (10/01/16 14:27) Ct Abdomen/Pelvis W (10/01/16 14:53) Chest 1 View, Ap/Pa Only (10/01/16 14:53) Iohexol Injection (Omnipaque 350 Mg/Ml 1 (10/01/16 15:30) Sodium Chloride Flush (Catheter Flush Sy (10/01/16 15:30) Ns (Ivpb) (Sodium Chloride 0.9% Ivpb Bag (10/01/16 15:30) Ondansetron Injection (Zofran Injectio (10/01/16 15:30) Ceftriaxone Injection (Rocephin Injectio (10/01/16 16:15) Medications Given in ED Current Medications Medications Dose Ordered Sig/Linda Route Start Time Stop Time Status Last Admin Dose Admin Iohexol 75 ml ONCE ONCE IV 10/01/16 15:30 10/01/16 15:31 DC 10/01/16 15:42 75 ML Lactated Ringer's 1,000 ml @ 0 mls/hr Q0M ONCE IV 10/01/16 13:55 10/01/16 13:58 DC 10/01/16 14:19 1,000 MLS/HR Ondansetron HCl 4 mg ONCE ONCE IVP 10/01/16 14:00 10/01/16 14:01 DC 10/01/16 14:21 4 MG Ondansetron HCl 4 mg ONCE ONCE IVP 10/01/16 15:30 10/01/16 15:31 DC 10/01/16 15:29 4 MG Sodium Chloride 100 ml ONCE ONCE IV 10/01/16 15:30 10/01/16 15:31 DC 10/01/16 15:42 80 ML Vital Signs/I&O Vital Sign - Last 12Hours 10/01/16 13:48 Temp 99.2 Pulse 74 Resp 18 B/P (MAP) 134/79 Pulse Ox 97 O2 Delivery Room Air Blood Pressure Mean: 97 Departure Impression Impression: Primary Impression: Urinary tract infection Additional Impressions: Dehydration Electrolyte imbalance Disposition: 01 HOME, SELF-CARE Condition: Stable Departure-Patient Inst. Referrals: SAMUEL NI MD (PCP/Family) Primary Care Physician Patient Instructions: Dehydration, Adult (DC), Urinary Tract Infection, Adult ( DC) Add. Discharge Instructions: LOTS OF CLEAR LIQUIDS--WATER, BROTH, JELLO, GATORADE DRINK ENOUGH SO YOU ARE URINATING EVERY 2 HOURS WHILE AWAKE FOLLOW UP WITH YOUR DR IN 2-3 DAYS FOR RECHECK All discharge instructions reviewed with patient and/or family. Voiced understanding. Scripts Cefdinir (Cefdinir) 300 Mg Capsule 300 MG PO BID for FOR INFECTION, #20 CAP Prov: FRANCHESCA COTTER DO 10/01/16 FRANCHESCA COTTER DO Oct 01, 2016 16:27
[2016-10-01 16:51] VITALS: BP 145/85
== END 2016-10-01 16:55 | disposition home or self-care (01) ==
LOC: EDUNIT# 13:42 → ER 13:44
DX: N39.0 Urinary tract infection, site not specified (principal); E86.0 Dehydration; E87.8 Other disorders of electrolyte and fluid balance, not elsewhere classified; I10 Essential (primary) hypertension; K21.9 Gastro-esophageal reflux disease without esophagitis; M19.90 Unspecified osteoarthritis, unspecified site; F41.9 Anxiety disorder, unspecified
CPT/HCPCS: 36415; 71010; 74177; 80053; 81000; 82150; 83690; 85025; 87088; 96361; 96374; 96375; 96376

== ENCOUNTER → 2016-12-22 | Outpatient (CLI) | payer MEDICARE ==
[~2016-12-22] MED LIST changes: +TRIM100T PO
--- NOTE | 2016-12-22 12:12 | Diagnostic Imaging Report ---
EXAMINATION: Left lower extremity duplex venous ultrasound. TECHNIQUE: DVT protocol. Multiple sonographic images with color Doppler and waveform interrogation were performed of the left lower extremity veins with compression and augmentation maneuvers. INDICATION: Left leg pain. FINDINGS: The left lower extremity veins from the groin to below the knee veins were examined with normal color-flow, compressibility and waveform demonstrated. The great saphenous vein is patent. IMPRESSION: No evidence of DVT in the left lower extremity. Dictated by: Dictated on workstation # [id number]
== END ==
LOC: RAD 11:27
PROVIDERS: ATTEND Nurse Practitioner Family
DX: M79.662 Pain in left lower leg (principal); R22.42 Localized swelling, mass and lump, left lower limb

== ENCOUNTER 2016-12-28 13:42 | Emergency (ER) | payer MEDICARE ==
[~2016-12-28] VITALS: Ht 160 cm; Wt 68.9 kg
--- OUTSIDE RECORDS SUMMARY | 2016-12-28 13:48 | XMS REPORT | Continuity of Care Document ---
Author Author [employer] Organization [facility] Address Unknown Phone Unavailable Care Team Providers Care Airport Operations Crew Member Name Role Phone [employer] Unavailable Unavailable Problems Medications Allergies, Adverse Reactions, Alerts Immunizations Results Vital Signs Encounters Location Location Details Encounter Type Encounter Number Reason For Visit Attending Provider ADM Date DC Date Status Source O DONOVAN LEÓN 12/16/2016 Active [facility] SPECIMEN [id number] DONOVAN LEÓN 12/16/2016 12/16/2016 Active [facility] Procedures Plan of Care Social History Assessment and Plan Family History Value Date Source Advance Directives Order Name Results Value Date Source
--- OUTSIDE RECORDS SUMMARY | 2016-12-28 13:48 | XMS REPORT | Clinical Summary ---
Author Author [facility] Organization [facility] Address Unknown Phone Unavailable Care Team Providers Care Egg Breaker Name Role Phone PCP Unavailable Source Comments Some departments are not documenting in the electronic medical record. If you do not see the information that you expected, contact Release of Information in the Health Information Management department at [phone] for further assistance in locating additional records.[facility] Allergies Active Allergy Reactions Severity Noted Date Comments Cefdinir HIVES Medium 12/16/2016 Sulfa (Sulfonamide SEE COMMENTS Low 12/16/2016 . Antibiotics) Current Medications Prescription Sig. Disp. Refills Start End Date Status Date omeprazole DR(+) Take 40 mg by mouth daily Active (PRILOSEC) 40 mg capsule before breakfast. meloxicam (MOBIC) 7.5 mg Take 7.5 mg by mouth Active tablet daily. ALPRAZolam (XANAX) 0.25 Take 0.25 mg by mouth Active mg tablet three times daily as needed for Anxiety. prednisone (DELTASONE) 10 Take 5 mg by mouth daily Active mg tablet with breakfast. lactobacillus rhamnosus Take 1 capsule by mouth Active GG (LACTOBACILLUS as directed daily with RHAMNOSUS (GG)) 15 breakfast. billion cell cpSP capsule losartan (COZAAR) 50 mg Take 50 mg by mouth three Active tablet times daily. loratadine (CLARITIN) 10 Take 10 mg by mouth every Active mg tablet morning. HYDROcodone/acetaminophen Take 1 tablet by mouth Active (NORCO) 5/325 mg tablet daily latanoprost (XALATAN) Apply 1 drop to both eyes Active 0.005 % ophthalmic at bedtime daily. solution Active Problems Problem Noted Date Recurrent UTI 12/16/2016 Encounters Date Type Specialty Care Team Description 12/16/2016 [facility] Jm Horne MD Urinary tract infection, Encounter site not specified 12/16/2016 Office Visit [employer] Up [employer] Jm Horne MD Suspected UTI ( Primary Dx);Recurrent UTI from Last 3 Months Family History Medical History Relation Name Comments None Reported Father None Reported Maternal Grandfather None Reported Maternal Grandmother None Reported Mother None Reported Paternal Grandfather None Reported Paternal Grandmother Relation Name Status Comments Father Maternal Grandfather Maternal Grandmother Mother Paternal Grandfather Paternal Grandmother Social History Tobacco Use Types Packs/Day Years Used Date Unknown If Ever Smoked Alcohol Use Drinks/Week oz/Week Comments No Sex Assigned at Date Recorded Not on file Last Filed Vital Signs Vital Sign Reading Time Taken Blood Pressure 151/74 12/16/2016 2:13 PM CDT Pulse 76 12/16/2016 2:13 PM CDT Temperature - - Respiratory Rate - - Oxygen Saturation - - Inhaled Oxygen - - Concentration Weight 68 kg (150 lb) 12/16/2016 2:13 PM CDT Height 160 cm (5' 3") 12/16/2016 2:13 PM CDT Body Mass Index 26.57 12/16/2016 2:13 PM CDT Plan of Treatment Health Maintenance Due Date Last Done Comments PHYSICAL (COMPREHENSIVE) 1936 EXAM PERTUSSIS VACCINE 1940 TETANUS VACCINE 1946 SHINGLES VACCINE 1989 OSTEOPOROSIS SCREENING 1994 PREVNAR/PNEUMOVAX (#1) 1994 INFLUENZA VACCINE 01/03/2017 Results * CULTURE-URINE W/SENSITIVITY (12/16/2016 2:27 PM) Component Value Ref Range Battery Name URINE CULTURE Specimen Description URINE Special Requests NONE Culture <10,000 organisms/ml MIXED CONTAMINANTS Report Status FINAL 12/17/2016 Specimen Performing Laboratory Urine, Outpatient MAIN LAB [address] [place] [address] * POC URINE DIPSTICK MANUAL READ (12/16/2016 2:18 PM) Component Value Ref Range Urine Glucose POC neg Urine Bilirubin POC neg Urine Ketone POC neg Urine Specific [place] 1.005 POC Urine Blood POC neg Urine PH POC 7.0 Urine Protein POC neg Urine Urobilinogen POC neg Urine Nitrite POC neg Urine Leukocytes POC neg Color,UA light yellow Turbidity,UA clear Specimen Performing Laboratory Urine IN CLINIC from Last 3 Months
--- OUTSIDE RECORDS SUMMARY | 2016-12-28 13:49 | XMS REPORT | Encounter Summary ---
Author Author [facility] Organization [facility] Address Unknown Phone Unavailable Care Team Providers Care Human Services Professional Name Role Phone PCP Unavailable Encounter Details Date Type Department Care Team Description 12/16/2016 [facility] Jm Horne MD Urinary tract infection, Encounter [address] [place] [address] [address] [place] [address] [phone] Social History Tobacco Use Types Packs/Day Years Used Date Unknown If Ever Smoked Alcohol Use Drinks/Week oz/Week Comments No Sex Assigned at Date Recorded Not on file as of this encounter Medications at Time of Discharge Medication Sig. Disp. Refills Start Date End Date ALPRAZolam (XANAX) 0.25 Take 0.25 mg by mouth mg tablet three times daily as needed for Anxiety. HYDROcodone/acetaminophen Take 1 tablet by mouth (NORCO) 5/325 mg tablet daily lactobacillus rhamnosus Take 1 capsule by mouth GG (LACTOBACILLUS as directed daily with RHAMNOSUS (GG)) 15 breakfast. billion cell cpSP capsule latanoprost (XALATAN) Apply 1 drop to both eyes 0.005 % ophthalmic at bedtime daily. solution loratadine (CLARITIN) 10 Take 10 mg by mouth every mg tablet morning. losartan (COZAAR) 50 mg Take 50 mg by mouth three tablet times daily. meloxicam (MOBIC) 7.5 mg Take 7.5 mg by mouth tablet daily. omeprazole DR(+) Take 40 mg by mouth daily (PRILOSEC) 40 mg capsule before breakfast. prednisone (DELTASONE) 10 Take 5 mg by mouth daily mg tablet with breakfast. as of this encounter Progress Notes * Jm Horne MD - 12/20/2016 6:26 PM CDT Please contact the patient and inform her that her urine culture showed contamination. It would be advisable if she can drop off a sample at her convenience if she is having UTI or OAB symptoms in this encounter Plan of Treatment Not on fileas of this encounter Results * CULTURE-URINE W/SENSITIVITY (12/16/2016 2:27 PM) Component Value Ref Range Battery Name URINE CULTURE Specimen Description URINE Special Requests NONE Culture <10,000 organisms/ml MIXED CONTAMINANTS Report Status FINAL 12/17/2016 Specimen Performing Laboratory Urine, Outpatient MAIN LAB [address] [place] [address] in this encounter Visit Diagnoses Diagnosis Urinary tract infection Urinary tract infection, site not specified in this encounter Admitting Diagnoses Diagnosis Urinary tract infection, site not specified in this encounter
--- OUTSIDE RECORDS SUMMARY | 2016-12-28 13:49 | XMS REPORT | Encounter Summary ---
Author Author [facility] Organization [facility] Address Unknown Phone Unavailable Care Team Providers Care Electronic Assembler Group Leader Name Role Phone PCP Unavailable Reason for Referral * Consult, Test & Treat (Routine) Status Reason Specialty Diagnoses / Referred By Referred To Procedures Contact Contact Closed Specialty Infectious Diagnoses Jm Horne MD [facility], Services Diseases Recurrent UTI [address] [place], [place] [phone] Phone: Fax: Reason for Visit * Reason Comments New Patient Other recurrent UTI Encounter Details Date Type Department Care Team Description 12/16/2016 Office Visit [facility] Jm Horne MD Suspected UTI (Primary Physicians - OBGYN [address] Dx);Recurrent UTI [address] [place] [address] OFFICE BLDG [phone] [place] [address] Social History Tobacco Use Types Packs/Day Years Used Date Unknown If Ever Smoked Alcohol Use Drinks/Week oz/Week Comments No Sex Assigned at Date Recorded Not on file as of this encounter Last Filed Vital Signs Vital Sign Reading [...] Mass Index 26.57 12/16/2016 2:13 PM CDT in this encounter Progress Notes * Desirae South RN - 12/16/2016 3:00 PM CDT Formatting of this note may be different from the original. Name of Referring Staff: Dr. Mera Amador Duration of symptom(s): 1-2 years # of past different clinicians seen for presenting problem: 4 Types of clinicians seen for presenting problem: PCP, Urologist, OBGYN Past treatments used for >3 months for presenting problem: N/A Bladder Function: # of voids from wake to sleep per day: 10/day # of voids per night: 3/night # servings of caffene/day: 1-2 History of recurrent urinary tract infections (>=3 in the last year): Yes Current seen blood in urine: No Current leaking of urine - Yes. Leakage Type With activity Yes With urgency Yes Without activity OR urgency No Most Common Type No Yes No equally regarding REAGAN and UUI No Current Incontinence Severity Index Score (TORI=Frequency x Volume): 4x2=8 Current pad use: 9/day Current voiding & bladder sensation/function: No Delay in initiating urination yes Slow stream yes Flow Stop / interruption Straining to void / Valsalva Spraying Feeling of incomplete emptying Need to immediately revoid / double voiding Post-void dribbling Position-dependent voiding Painful urination / dysuria Inability to pass urine / obstruction Current filling sensation/function: Normal Increased sensation Decreased Sensation Absent Sensation no yes no no Current 3 month difficulty emptying bladder (ROBERT): No ; Bother Score Not at All Treatments tried: Medication Pelvic Support: Current 3 month seen or felt vaginal bulge:No ; Bother Score N/A Current 3 month splinting to complete bowel mvmnt: No ; Bother Score N/A Treatments tried: Medication Bowel Function (CRADI): Current 3 months strain to have BM: No / Bother Score N/A Current 3 months sense of incomplete emptying: No/ Bother Score N/A Current 3 months lose well-formed stool: No / Bother Score N/A Current 3 months lose loose stool: No / Bother Score N/A Current 3 months lose gas: No / Bother Score N/A Current 3 months pain with defecation: No / Bother Score N/A Current 3 months of fecal urgency: No / Bother Score N/A Current 3 months rectal prolapse: No Bother Score N/A Treatments tried:n/a Blood in stool: No Sexual Function: (one choice per column) Sexually Active No bother score N/A Pain during intercourse, if applicable No bother score N/A Sense of vaginal laxity No bother score N/A (multiple choice per row) If not sexually active, indicate all reasons No partner no No interest no Pelvic floor disorder no If not sexually active, indicate Bother score (0-3) 0 Pertinent Common information Colonoscopy: unknown Last Mammogram: unknown Last PAP smear: unknown [id number] Pertinent Family History: Pt denies any family history of gynecologic malignancy (ovarian, uterine, cervical, breast) Outside Records Available: no, and Reviewed: no * Jm Horne MD - 12/16/2016 3:00 PM CDT Formatting of this note may be different from the original. CHIEF COMPLAINT: Chief Complaint Patient presents with New Patient Other recurrent UTI Juliette Multani is a 86 y.o., female who presents for consultation at the request of Dr Wilfrid Sevilla for an opinion regarding / reason for today's visit as vocalized by patient: recurrent UTI Pertinent History For the last 11 months, patient reports recurrent UTIs requiring visits to ED and IV antibiotics. She has not had urosepsis or been hospitalized. Her UTIs have mostly been managed by her PCP - but she has also seen Urology in consultation. She reports undergoing cystoscopy in April and was told everything looked anatomically normal/no records available. She has tried multiple oral and IV antibiotics/no records available. She was started on daily prednisone about 1 month ago and he been free of UTIs since then / indication for prednisone unknown. She believes she was started on prednisone for recurrent infections. She also describes frequent yeast infections after antibiotic therapy - typically treated with fluconazole. During her treatment, she also saw an OBGYN and was briefly started on an estrogen cream - but stopped using this due to burning pain. She was then given vaginal pill, which made her nauseated. Her symptoms of UTI include dysuria, frequency, urgency. Denies foul smelling urine or hematuria. She voids frequently during the day - about 10/day and 3x per night. She notes urinary incontinence, worse with being told to drink "a lot of water" when she has UTI symptoms. She notes both some urge and stress type incontinence, which has been longstanding. She is unsure if she has incontinence outside of UTI episodes, but believes she does. She denies any pelvic pain outside of UTI episodes. Her primary care doctor is based out of [place], [place] and she has been seen at [facility] for ED visits. She reports CT scan at [facility] in September or October. She has not seen an infectious disease specialist. She denies any symptoms of uterine prolapse or bowel symptoms - including constipation/diarrhea/fecal incontinence. She is not currently sexually active. Has never been . Took 'oral hormone replacement' for about 5 years after menopause, which she went through about age 49. Items Reviewed no records available at time of visit / ? Sent to the wrong dept ALLERGIES: Cefdinir and Sulfa (sulfonamide antibiotics) Past Medical History: Diagnosis Date Anxiety Depression GERD (gastroesophageal reflux disease) Glaucoma Hypertension Seasonal allergies Past Surgical History: Procedure Laterality Date CATARACT REMOVAL CHOLECYSTECTOMY WISDOM TEETH EXTRACTION Family History Problem Relation Age of Onset None Reported Mother None Reported Father None Reported Maternal Grandmother None Reported Maternal Grandfather None Reported Paternal Grandmother None Reported Paternal Grandfather Social History Social History Marital status: Spouse name: N/A Number of children: N/A Years of education: N/A Occupational History Not on file. Social History Main Topics Smoking status: Unknown If Ever Smoked Smokeless tobacco: Not on file Alcohol use No Drug use: No Sexual activity: No Other Topics Concern Not on file Social History Narrative Current Outpatient Prescriptions: ALPRAZolam (XANAX) 0.25 mg tablet, Take 0.25 mg by mouth three times daily as needed for Anxiety., Disp: , Rfl: HYDROcodone/acetaminophen (NORCO) 5/325 mg tablet, Take 1 tablet by mouth daily, Disp: , Rfl: lactobacillus rhamnosus GG (LACTOBACILLUS RHAMNOSUS (GG)) 15 billion cell cpSP capsule, Take 1 capsule by mouth as directed daily with breakfast., Disp: , Rfl: latanoprost (XALATAN) 0.005 % ophthalmic solution, Apply 1 drop to both eyes at bedtime daily., Disp: , Rfl: loratadine (CLARITIN) 10 mg tablet, Take 10 mg by mouth every morning., Disp: , Rfl: losartan (COZAAR) 50 mg tablet, Take 50 mg by mouth three times daily., Disp: , Rfl: meloxicam (MOBIC) 7.5 mg tablet, Take 7.5 mg by mouth daily., Disp: , Rfl: omeprazole DR(+) (PRILOSEC) 40 mg capsule, Take 40 mg by mouth daily before breakfast., Disp: , Rfl: prednisone (DELTASONE) 10 mg tablet, Take 5 mg by mouth daily with breakfast., Disp: , Rfl: OBJECTIVE: Physical Examination: General appearance/Vital Signs: BP 151/74 | Pulse 76 | Ht 160 cm (63") | Wt 68 kg (150 lb) | BMI 26.57 kg/m2, not in acute distress, well groomed, appears nutritionally well fed Psychiatric / Mental status: oriented to time, place and person; affect and mood appropriate; normal interaction Eyes: Sclera white, no strabismus, no nystagmus Ears/Nose/Throat: Lips and gums appear normal,adequate hearing ability , Nose tip an body without visible lesions Cardiovascular / Peripheral vascular system: normal pulses bilaterally in LE, no prominent varicose veins involving the LE, no cyanosis, no edema in LE, extremities warm Chest / Respiratory: normal respiratory effort, unlabored breathing Gastrointestinal / Abdomen: no masses, no rebound or direct tenderness, soft, nondistended Lymphatic: No lymphadenopathy of the groin noted on either side Musculoskeletal / Extremities: walking with normal gait, no gross deformities of right leg, no gross deformities of left leg, normal joint mobility noted visibly in LE bilat Dermatological: suprapubic and vulvar skin inspected visually without lesions noted, suprapubic and vulvar skin palpated without masses felt, pubic hair present Neurologic: sensation (by digital palpation) over pubis normal, sensation (by digital palpation) over labia minora normal, sensation (by digital palpation) on the inside of the thigh in the proximity of the perineum normal Genitourinary: (one choice per column) Ext. Genitalia Lesions noted No Appearance consistent with age Yes Vagina Discharge Present No Mucosa Atrophic Yes Tissue Friable No Tissue Tender To Palpation No Bladder Masses Noted No Bladder Neck tender to Palpation No Urethra Midline Yes Hypermobile No Normal Size Yes Urethral Tenderness On Palpation No Urethral Discharge Noted No Any Lesions Noted* No Uterus Normal Size Yes Mobile Yes Cervix tender to touch No Adnexa Masses palpated No Tenderness noted No Bimanual Masses palpated No Perineum Visually intact Yes Thinned out perineum Yes Perineocele on NANCY Not assessed Anus External Hemorrhoids No Anal tone - adequate (by NANCY) Not Assessed Myofascial Tenderness Levators No Obturator internus No Seligman Squeeze strength: (0-5) 3 out of 5 Pelvic Organ Prolapse Quantification (POP-Q): Aa -2 Ba -3 C -6 GH 3 PB 2 TVL 6 Ap -3 Bp -3 D -6 Continence Stress Test (Valsalva or Cough) Positive / Leaks with Woodruff bladder (prior to voiding) Positive / Leaks with Empty bladder (post-voiding) No Leakage noted on standing IMPRESSION / PLAN / FOLLOWUP: ICD-9-CM ICD-10-CM 1. Suspected UTI 599.0 N39.0 POC URINE DIPSTICK MANUAL READ CULTURE-URINE W/SENSITIVITY 2. Recurrent UTI 599.0 N39.0 AMB REFERRAL TO INFECTIOUS DISEASE Recurrent UTI - Discussed with patient that she has appeared to have appropriate work up, including urine cultures, cystoscopy, and CT scan of renal system - although records not available at office visit today. On pelvic exam, no anatomic abnormalities visualized. Due to repetitive nature of UTIs, medication allergies , and lack of anatomical abnormality (which is the indication for urogyn involvement) - will refer to infectious disease for continued workup and treatment. - Discussed that prednisone not typically used for recurrent UTI alone, but patient unsure of what diagnosis she was specifically given to start this medication / will not change meds due to lack of documentation for indication - Requested records from previous evaluation - importantly, CT and cystoscopy results - ID consult placed for UTI management No future appointments. Physician Jm Horne M.D. FACOG [employer] Division of Female Pelvic Medicine and Reconstructive Surgery (Urogynecology) Department of Obstetrics & Gynecology [facility] Pager Number Nurse Office Appointments Surgical Scheduling Office Locations Site 1- Medical Office [facility], 5th floor, [facility], [place], [place] Site 2- [facility], [place], [place] Date Of Consult December 17, 2016 Pertinent Review of Systems: - General ROS: Denies recent weight change above 10 pounds, Denies malaise - HEENT ROS: Denies blurring of vision. Denies double vision, Positive for glaucoma, Denies dry eyes - Cardiovascular ROS: Denies chest pain. Denies palpitations currently. Denies orthopnea - Respiratory ROS: Denies shortness of breath, Denies cough, Denies wheezing currently - Gastrointestinal ROS: Denies constipation, Denies gastric reflux, Denies blood in stool, Denies diarrhea, Denies Irritable bowel syndrome, Denies nausea , Denies vomiting, Denies abdominal pain - Endocrine ROS: Denies polydipsia, Denies excessive sweating. Denies hot flashes. Denies Thyroid disease - Hematological and Lymphatic ROS: Denies easy bruisability , Denies current anemia, Denies adenopathy in the inguinal area - Neurological ROS: Denies syncope, Denies numbness in lower extremities, Denies neuropathy. Denies shooting pain down the legs, Denies shooting pain in the lower back, Denies low back pain - Musculoskeletal ROS: Denies Joint pain. Denies Edema in lower extremities. Denies fibromyalgia - Psychological ROS: Denies depression, Denies anxiety, Denies thoughts of suicide, Denies thoughts of homicide, Denies recent seizure, Denies syncope - Dermatological ROS: Denies eczema. Denies skin rashes in the groin area and other sites Total consult / visit time=65 min, more than 50 min spent in face to face discussion regarding diagnoses and therapeutic options in this encounter Plan of Treatment Name Priority Associated Diagnoses Order Schedule CULTURE-URINE W/SENSITIVITY Routine Suspected UTI ONE TIME starting 12/16/2016 Name Priority Associated Diagnoses Order Schedule AMB REFERRAL TO INFECTIOUS DISEASE Routine Recurrent UTI Ordered: 2016 as of this encounter Results * POC URINE DIPSTICK MANUAL READ (12/16/2016 2:18 PM) Component Value Ref Range Urine Glucose POC neg Urine Bilirubin POC neg Urine Ketone POC neg Urine Specific Sledge 1.005 POC Urine Blood POC neg Urine PH POC 7.0 Urine Protein POC neg Urine Urobilinogen POC neg Urine Nitrite POC neg Urine Leukocytes POC neg Color,UA light yellow Turbidity,UA clear Specimen Performing Laboratory Urine IN CLINIC in this encounter Visit Diagnoses Diagnosis Suspected UTI - Primary Recurrent UTI Urinary tract infection, site not specified in this encounter
[2016-12-28 15:22] LABS: BASOPHILS % (AUTO) 0 % (0-10); EOSINOPHILS % (AUTO) 0 % (0-10); LYMPHOCYTES # (AUTO) 1.3 X 10^3 (1.0-4.0); LYMPHOCYTES % (AUTO) 10 % (12-44); MEAN CORPUSCULAR HEMOGLOBIN 33 PG (25-34); MEAN CORPUSCULAR HGB CONC 34 G/DL (32-36); MEAN CORPUSCULAR VOLUME 97 FL (80-99); MEAN PLATELET VOLUME 9.2 FL (7.4-10.4); MONOCYTES # (AUTO) 1.3 X 10^3 (0.0-1.0); MONOCYTES % (AUTO) 10 % (0-12); NEUTROPHILS # (AUTO) 9.4 X 10^3 (1.8-7.8); NEUTROPHILS % (AUTO) 79 % (42-75); PLATELET COUNT 262 10^3/uL (130-400); RED BLOOD COUNT 3.96 10^6/uL (4.35-5.85)
[2016-12-28 15:39] LABS: INR 0.9 (0.8-1.4); PROTHROMBIN TIME PATIENT 12.5 SEC (12.2-14.7)
--- NOTE | 2016-12-28 15:41 | ED General ---
General Chief Complaint: Allergic Reaction Stated Complaint: RASH Nursing Triage Note: AMBULATED TO ROOM 04 WITH COMPLAINTS OF RASH STARTING YESTERDAY THAT SHE THINKS IS RELATED TO EATING TOMATOES. WENT TO URGENT CARE YESTERDAY AND WAS GIVEN A SHOT. STATES SHE HAS BEEN TAKING PREDNISONE , PEPCID, AND BENADRYL. Nursing Sepsis Screen: No Definite Risk Source of Information: Patient Exam Limitations: No Limitations History of Present Illness Time Seen by Provider: 14:20 Initial Comments This 80-year-old woman presents to the emergency room along with the family member with complaints of a relatively diffuse rash. It is a fine rash that involves much of her trunk into a lesser extent the face and extremities. She went to Urgent Care yesterday and received a steroid injection. She also took some Benadryl this morning and applied some hydrocortisone cream. The rash was initially pruritic but the itching has now gone. She reports being on low-dose daily prednisone as prescribed by Dr. Hughes because it seems to be the only thing that prevents urinary tract infections. She has started no other new medications recently. Patient also reports over the past month having easy bruising particularly of the arms. Allergies and Home Medications Allergies Coded Allergies: Sulfa (Sulfonamide Antibiotics) (Verified Allergy, Mild, 03/28/16) tramadol (Verified Allergy, Unknown, 10/01/16) nitrofurantoin (Verified Adverse Reaction, Unknown, NAUSEA, 03/28/16) Home Medications Alprazolam 0.25 Mg Tablet, 0.25 MG PO HS, (Reported) Cefdinir 300 Mg Capsule, 300 MG PO BID, (Reported) Cefdinir 300 Mg Capsule, 300 MG PO BID, #6 Prescribed by: ALONZO SON on 08/06/16 1257 Cefdinir 300 Mg Capsule, 300 MG PO BID, #20 Prescribed by: FRANCHESCA COTTER on 10/01/16 1627 Cefuroxime Axetil 250 Mg Tablet, 250 MG PO BID, (Reported) Cefuroxime Axetil 500 Mg Tablet, 500 MG PO BID, #30 Prescribed by: FRANCHESCA COTTER on 07/19/16 0928 Fluconazole 150 Mg Tablet, 150 MG PO WEEK, (Reported) Fluconazole 200 Mg Tablet, 200 MG PO DAILY, #10 Prescribed by: FRANCHESCA COTTER on 07/19/16 0928 Latanoprost 2.5 Ml Drops, #3 (Reported) Latanoprost 1 Gm Oil, 1 GM MC HS, (Reported) Losartan Potassium 50 Mg Tablet, 50 MG PO DAILY, (Reported) Nystatin 100,000 Unit/1 Ml Oral.susp, 100,000 UNIT PO QID, (Reported) Omeprazole 40 Mg Capsule.dr, 40 MG PO DAILY, (Reported) Phenazopyridine HCl 200 Mg Tablet, 1 TAB PO TID, #15 Prescribed by: FRANCHESCA COTTER on 07/19/16 0928 Phenazopyridine HCl 200 Mg Tablet, 1 TAB PO twice a day, #6 Prescribed by: ALONZO SON on 09/11/16 0941 Sucralfate 1 Gm Tablet, 1 GM PO TIDAC, (Reported) Trimethoprim 100 Mg Tablet, 100 MG PO, (Reported) Constitutional: no symptoms reported EENTM: no symptoms reported Respiratory: wheezing (Yesterday) Cardiovascular: no symptoms reported Gastrointestinal: no symptoms reported Genitourinary: no symptoms reported Musculoskeletal: no symptoms reported Skin: see HPI Psychiatric/Neurological: No Symptoms Reported Hematologic/Lymphatic: See HPI Immunological/Allergic: no symptoms reported Past Slaupfv-Jzaxvq-Fdejbb Hx Patient Social History Alcohol Use: Denies Use Recreational Drug Use: No Smoking Status: Never a Smoker 2nd Hand Smoke Exposure: No Recent Foreign Travel: No Contact w/Someone Who Travel: No Recent Infectious Disease Expo: No Recent Hopitalizations: No Immunizations Up To Date Date of Influenza Vaccine: Jan 04, 2016 Surgeries History of Surgeries: Yes Surgeries: Adenoidectomy, Gallbladder, Tonsillectomy Respiratory History of Respiratory Disorde: No Cardiovascular History of Cardiac Disorders: Yes Cardiac Disorders: Hypertension Neurological History of Neurological Disord: No Reproductive System : No Genitourinary History of Genitourinary Disor: Yes Genitourinary Disorders: Bladder Infection, UTI-Chronic Gastrointestinal History of Gastrointestinal Di: Yes Gastrointestinal Disorders: Gastroesophageal Reflux Musculoskeletal History of Musculoskeletal Dis: Yes Musculoskeletal Disorders: Arthritis Endocrine History of Endocrine Disorders: No Cancer History of Cancer: No Psychosocial History of Psychiatric Problem: Yes Behavioral Health Disorders: Anxiety Integumentary History of Skin or Integumenta: Yes Skin/Integumentary Disorders: Recent Skin Changes Blood Transfusions History of Blood Disorders: No Physical Exam Vital Signs Vital Sign - Last 12Hours 12/28/16 14:18 Temp 98.0 Pulse 73 Resp 18 B/P (MAP) 174/70 Pulse Ox 96 Capillary Refill : Less Than 3 Seconds General Appearance: No Apparent Distress, WD/WN HEENT: PERRL/EOMI, Normal ENT Inspection Neck: Normal Inspection Respiratory: Lungs Clear, Normal Breath Sounds, No Accessory Muscle Use, No Respiratory Distress Cardiovascular: Regular Rate, Rhythm, No Edema, No Murmur Gastrointestinal: Non Tender, Soft Extremity: Normal Inspection, No Pedal Edema Neurologic/Psychiatric: Alert, Oriented x3, No Motor/Sensory Deficits, Normal Mood/Affect, senior staff consultant II-XII Norm as Tested Skin: Warm/Dry, Rash (Fine flat erythematous rash over the trunk and scattered over her extremities. Rash is blanching. She also has areas of ecchymosis on the extremities.) Progress/Results/Core Measures Results/Orders Lab Results Laboratory Tests Test 12/28/16 14:30 12/28/16 15:15 Range/Units Group A Streptococcus Screen NEGATIVE NEGATIVE White Blood Count 12.0 H 4.3-11.0 10^3/uL Red Blood Count 3.96 L 4.35-5.85 10^6/uL Hemoglobin 13.0 11.5-16.0 G/DL Hematocrit 38 35-52 % Mean Corpuscular Volume 97 80-99 FL Mean Corpuscular Hemoglobin 33 25-34 PG Mean Corpuscular Hemoglobin Concent 34 32-36 G/DL Red Cell Distribution Width 13.0 10.0-14.5 % Platelet Count 262 130-400 10^3/uL Mean Platelet Volume 9.2 7.4-10.4 FL Neutrophils (%) (Auto) 79 H 42-75 % Lymphocytes (%) (Auto) 10 L 12-44 % Monocytes (%) (Auto) 10 0-12 % Eosinophils (%) (Auto) 0 0-10 % Basophils (%) (Auto) 0 0-10 % Neutrophils # (Auto) 9.4 H 1.8-7.8 X 10^3 Lymphocytes # (Auto) 1.3 1.0-4.0 X 10^3 Monocytes # (Auto) 1.3 H 0.0-1.0 X 10^3 Eosinophils # (Auto) 0.0 0.0-0.3 10^3/uL Basophils # (Auto) 0.0 0.0-0.1 10^3/uL Prothrombin Time 12.5 12.2-14.7 SEC INR Comment 0.9 0.8-1.4 Activated Partial Thromboplast Time 21 L 24-35 SEC Sodium Level 132 L 135-145 MMOL/L Potassium Level 3.9 3.6-5.0 MMOL/L Chloride Level 97 L 98-107 MMOL/L Carbon Dioxide Level 27 21-32 MMOL/L Anion Gap 8 5-14 MMOL/L Blood Urea Nitrogen 18 7-18 MG/DL Creatinine 0.76 0.60-1.30 MG/DL Estimat Glomerular Filtration Rate > 60 BUN/Creatinine Ratio 24 Glucose Level 115 H 70-105 MG/DL Calcium Level 9.5 8.5-10.1 MG/DL Total Bilirubin 0.4 0.1-1.0 MG/DL Aspartate Amino Transf (AST/SGOT) 18 5-34 U/L Alanine Aminotransferase (ALT/SGPT) 21 0-55 U/L Alkaline Phosphatase 59 40-136 U/L Total Protein 6.5 6.4-8.2 GM/DL Albumin 3.9 3.2-4.5 GM/DL Micro Results Microbiology 12/28/16 Throat Culture - Preliminary, Resulted No Beta Strep isolated My Orders Orders - PADMAJA LUNDBERG MD Rapid Strep A Screen (12/28/16 14:35) Cbc With Automated Diff (12/28/16 15:03) Comprehensive Metabolic Panel (12/28/16 15:03) Protime With Inr (12/28/16 15:03) Partial Thromboplastin Time (12/28/16 15:03) Saline Lock/Iv-Start (12/28/16 15:03) Vital Signs/I&O Blood Pressure Mean: 104 Progress Note : Progress Note Patient was advised to stop prednisone. Workup was relatively unremarkable. There was mild leukocytosis which is likely due to the prednisone use. Departure Impression Impression: Primary Impression: Rash Additional Impression: Ecchymosis Disposition: 01 HOME, SELF-CARE Condition: Stable Departure-Patient Inst. Decision time for Depature: 16:20 Referrals: SAMUEL AMADOR MD (PCP/Family) Primary Care Physician Patient Instructions: Skin Rash (DC) Add. Discharge Instructions: Discontinue prednisone. Discussed with Dr. Hughes and Dr. Amador to determine if continued prednisone use as necessary. You may use Benadryl (diphenhydramine ) 12.5-25 mg 3 times a day if necessary for itching. Follow-up with Dr. Amador as soon as possible for a medication review. Return to care if symptoms worsen. All discharge instructions reviewed with patient and/or family. Voiced understanding. Copy Copies To 1: SAMUEL AMADOR MD Copies To 2: MAUREEN HUGHES MD, JOSHUA T MD Dec 28, 2016 15:41
[2016-12-28 15:47] LABS: ALANINE AMINOTRANSFERASE 21 U/L (0-55); ALBUMIN 3.9 GM/DL (3.2-4.5); ANION GAP 8 MMOL/L (5-14); ASPARTATE AMINO TRANSFERASE 18 U/L (5-34); BILIRUBIN,TOTAL 0.4 MG/DL (0.1-1.0); BLOOD UREA NITROGEN 18 MG/DL (7-18); BUN/CREATININE RATIO 24; CALCIUM 9.5 MG/DL (8.5-10.1); CARBON DIOXIDE 27 MMOL/L (21-32); CHLORIDE 97 MMOL/L (98-107); CREATININE SERUM 0.76 MG/DL (0.60-1.30); GFR ESTIMATED > 60; GLUCOSE 115 MG/DL (70-105); POTASSIUM 3.9 MMOL/L (3.6-5.0); SODIUM 132 MMOL/L (135-145); TOTAL PROTEIN 6.5 GM/DL (6.4-8.2)
[2016-12-28 16:51] VITALS: BP 167/78
== END 2016-12-28 16:51 | disposition home or self-care (01) ==
LOC: EDUNIT# 13:42 → ER 13:44
DX: R21 Rash and other nonspecific skin eruption (principal); R23.3 Spontaneous ecchymoses; I10 Essential (primary) hypertension; M19.90 Unspecified osteoarthritis, unspecified site; F41.9 Anxiety disorder, unspecified; Z90.89 Acquired absence of other organs; Z87.448 Personal history of other diseases of urinary system; Z87.440 Personal history of urinary (tract) infections
CPT/HCPCS: 36415; 80053; 85025; 85610; 85730; 87430

== ENCOUNTER 2017-04-16 14:03 | Emergency (ER) | payer MEDICARE ==
[~2017-04-16] VITALS: Ht 160 cm; Wt 75.3 kg
--- OUTSIDE RECORDS SUMMARY | 2017-04-16 14:08 | XMS REPORT | Continuity of Care Document ---
Author Author [employer] Organization [facility] Address Unknown Phone Unavailable Care Team Providers Care Firearms Assembly Supervisor Name Role Phone [employer] Unavailable Unavailable Problems Medications Allergies, Adverse Reactions, Alerts Immunizations Results Vital Signs Encounters Location Location Details Encounter Type Encounter Number Reason For Visit Attending Provider ADM Date DC Date Status Source O DONOVAN LEÓN 12/16/2016 Active [facility] SPECIMEN [id number] DONOVAN LEÓN 12/16/2016 12/16/2016 Active [facility] Procedures Plan of Care Social History Assessment and Plan Family History Advance Directives Functional Status
--- OUTSIDE RECORDS SUMMARY | 2017-04-16 14:08 | XMS REPORT | Clinical Summary ---
Author Author [facility] Organization [facility] Address Unknown Phone Unavailable Care Team Providers Care Tree Care Foreman Name Role Phone PCP Unavailable Source Comments Some departments are not documenting in the electronic medical record. If you do not see the information that you expected, contact Release of Information in the Health Information Management department at [phone] for further assistance in locating additional records.[facility] Allergies Active Allergy Reactions Severity Noted Date [...] Problems Problem Noted Date Recurrent UTI 12/16/2016 Family History Medical History Relation Name Comments [...] SCREENING 1994 PREVNAR/PNEUMOVAX (#1) 1994 INFLUENZA VACCINE 11/03/2016 Results Not on filefrom Last 3 Months
[2017-04-16 15:35] LABS: BILIRUBIN,URINE NEGATIVE (NEGATIVE); CLARITY,URINE CLEAR; COLOR,URINE YELLOW; GLUCOSE, URINE (UA) NEGATIVE (NEGATIVE); KETONES,URINE NEGATIVE (NEGATIVE); LEUKOCYTE ESTERASE ,URINE NEGATIVE (NEGATIVE); NITRITE,URINE NEGATIVE (NEGATIVE); PH,URINE 7 (5-9); PROTEIN,URINE NEGATIVE (NEGATIVE); UROBILINOGEN,URINE NORMAL (NORMAL)
[2017-04-16 15:49] LABS: BACTERIA,URINE NEGATIVE /HPF; RBC,URINE RARE /HPF; SQUAMOUS EPITHELIAL CELL,UR 0-2 /HPF; WBC,URINE RARE /HPF
[2017-04-16] MEDS ORDERED: ONDANSETRON 4 MG (ZOFRAN) ORAL DISSOLVE TAB SL STA (17:18)
[2017-04-16] MEDS ORDERED: ONDANSETRON 4 MG/2 ML (SDV) Z0FRAN IVP ONE ×2 (17:30→18:15)
--- NOTE | 2017-04-16 18:26 | ED GI ---
General Chief Complaint: Abdominal/GI Problems Stated Complaint: NAUSEA Nursing Triage Note: Pt c/o "upset stomach" x3-4 days. Hebrew Teacher w/ pt reports pt was recently on cipro for UTI but pt quit taking because it upset her stomach. Hebrew Teacher also reports pt has been constipated and recently started on colace. Pt had 2 soft BM this AM. pt denies vomiting. 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 NI'S OFFICE ON AND STARTED ON CIPRO ( STATES IT ALWAYS CAUSES NAUSEA) AND FINISHED IT ON Wednesday04/13/17. NO URINARY SYMPTOMS NOW HAS NOT ATTEMPTED TO FOLLOW UP WITH DR. NI SINCE THESE SYMPTOMS STARTED C/O BEING SLIGHTLY DIZZY--BEGAN AFTER SHE ARRIVED IN ER WHEN SHE WENT TO THE BATHROOM NO KNOWN SICK CONTACTS OR SUSPICIOUS FOODS PCP: DR. NI Allergies and Home Medications Allergies Coded Allergies: Sulfa (Sulfonamide Antibiotics) (Verified Allergy, Mild, 03/28/16) ciprofloxacin (Unverified Allergy, Unknown, NAUSEA, 04/16/17) estradiol (Unverified Allergy, Unknown, 04/16/17) estrogens, conjugated (Unverified Allergy, Unknown, 04/16/17) tramadol (Verified Allergy, Unknown, 10/01/16) nitrofurantoin (Verified Adverse Reaction, Unknown, NAUSEA, 03/28/16) Home Medications Alprazolam 0.25 Mg Tablet, 0.25 MG PO HS, (Reported) Cefdinir 300 Mg Capsule, 300 MG PO BID, (Reported) Cefdinir 300 Mg Capsule, 300 MG PO BID, #6 Prescribed by: ALONZO SON on 08/06/16 1257 Cefdinir 300 Mg Capsule, 300 MG PO BID, #20 Prescribed by: FRANCHESCA COTTER on 10/01/16 1627 Cefuroxime Axetil 250 Mg Tablet, 250 MG PO BID, (Reported) Cefuroxime Axetil 500 Mg Tablet, 500 MG PO BID, #30 Prescribed by: FRANCHESCA COTTER on 07/19/16 0928 Fluconazole 150 Mg Tablet, 150 MG PO WEEK, (Reported) Fluconazole 200 Mg Tablet, 200 MG PO DAILY, #10 Prescribed by: FRANCHESCA COTTER on 07/19/16 0928 Latanoprost 2.5 Ml Drops, #3 (Reported) Latanoprost 1 Gm Oil, 1 GM MC HS, (Reported) Losartan Potassium 50 Mg Tablet, 50 MG PO DAILY, (Reported) Nystatin 100,000 Unit/1 Ml Oral.susp, 100,000 UNIT PO QID, (Reported) Omeprazole 40 Mg Capsule.dr, 40 MG PO DAILY, (Reported) Ondansetron 4 Mg Tab.rapdis, 4 MG PO Q4H, #10 Prescribed by: FRANCHESCA COTTER on 04/16/172010 Phenazopyridine HCl 200 Mg Tablet, 1 TAB PO TID, #15 Prescribed by: FRANCHESCA COTTER on 07/19/16 0928 Phenazopyridine HCl 200 Mg Tablet, 1 TAB PO twice a day, #6 Prescribed by: ALONZO SON on 09/11/16 0941 Sucralfate 1 Gm Tablet, 1 GM PO TIDAC, (Reported) Trimethoprim 100 Mg Tablet, 100 MG PO, (Reported) Review of Systems Constitutional: see HPI, No chills, No diaphoresis, dizziness, No fever, malaise, weakness EENTM: No Symptoms Reported Respiratory: No Symptoms Reported Cardiovascular: No Symptoms Reported Gastrointestinal: See HPI, Constipated, Denies Diarrhea, Nausea, Denies Poor Appetite, Denies Poor Fluid Intake ("DRINKING LOTS OF FLUIDS" ), Denies Vomiting Genitourinary: See HPI Musculoskeletal: no symptoms reported Skin: no symptoms reported Psychiatric/Neurological: No Symptoms Reported Endocrine: No Symptoms Reported Hematologic/Lymphatic: No Symptoms Reported Past Nowboqk-Wqziwq-Nmeiyr Hx Patient Social History Alcohol Use: Denies Use Recreational Drug Use: No Smoking Status: Never a Smoker 2nd Hand Smoke Exposure: No Recent Foreign Travel: No Contact w/Someone Who Travel: No Recent Infectious Disease Expo: No Recent Hopitalizations: No Physical Abuse: No Sexual Abuse: No Mistreated: No Fear: No Immunizations Up To Date Tetanus Booster (TDap): Less than 5yrs Date of Pneumonia Vaccine: Jan 03, 2017 Date of Influenza Vaccine: Jan 03, 2017 Surgeries History of Surgeries: Yes Surgeries: Adenoidectomy, Gallbladder, Tonsillectomy Respiratory History of Respiratory Disorde: No Cardiovascular History of Cardiac Disorders: Yes Cardiac Disorders: Hypertension Neurological History of Neurological Disord: No Genitourinary History of Genitourinary Disor: Yes Genitourinary Disorders: Bladder Infection, UTI-Chronic Gastrointestinal History of Gastrointestinal Di: Yes Gastrointestinal Disorders: Gastroesophageal Reflux, Chronic Constipation Musculoskeletal History of Musculoskeletal Dis: Yes Musculoskeletal Disorders: Arthritis Endocrine History of Endocrine Disorders: No HEENT History of HEENT Disorders: No Cancer History of Cancer: No Psychosocial History of Psychiatric Problem: Yes Behavioral Health Disorders: Anxiety Suicide Risk Score: 0 Integumentary History of Skin or Integumenta: No Blood Transfusions History of Blood Disorders: No Physical Exam Vital Signs VS - Last 72 Hours, by Label 04/16/17 15:19 Temp 98.3 Pulse 70 Resp 18 B/P (MAP) 168/84 (112) Pulse Ox 100 O2 Delivery Room Air Capillary Refill : Less Than 3 Seconds General Appearance: WD/WN, no apparent distress HEENT: PERRL/EOMI, other (NO UPPER TEETH, BOTTOM TEETH WITH POOR DENTITION. 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 nml as tested, no motor/sensory deficits, alert, normal mood/affect, oriented x 3 Skin: normal color, warm/dry Progress/Results/Core Measures Results/Orders Lab Results Laboratory Tests Test 04/16/17 15:14 04/16/17 19:01 Range/Units Urine Color YELLOW Urine Clarity CLEAR Urine pH 7 5-9 Urine Specific [place] 1.010 L 1.016-1.022 Urine Protein NEGATIVE NEGATIVE Urine Glucose (UA) NEGATIVE NEGATIVE Urine Ketones NEGATIVE NEGATIVE Urine Nitrite NEGATIVE NEGATIVE Urine Bilirubin NEGATIVE NEGATIVE Urine Urobilinogen NORMAL NORMAL MG/DL Urine Leukocyte Esterase NEGATIVE NEGATIVE Urine RBC (Auto) NEGATIVE NEGATIVE Urine RBC RARE /HPF Urine WBC RARE /HPF Urine Squamous Epithelial Cells 0-2 /HPF Urine Crystals NONE /LPF Urine Bacteria NEGATIVE /HPF Urine Casts NONE /LPF Urine Mucus NEGATIVE /LPF Urine Culture Indicated NO White Blood Count 10.4 4.3-11.0 10^3/uL Red Blood Count 3.83 L 4.35-5.85 10^6/uL Hemoglobin 12.8 11.5-16.0 G/DL Hematocrit 37 35-52 % Mean Corpuscular Volume 96 80-99 FL Mean Corpuscular Hemoglobin 33 25-34 PG Mean Corpuscular Hemoglobin Concent 35 32-36 G/DL Red Cell Distribution Width 12.1 10.0-14.5 % Platelet Count 273 130-400 10^3/uL Mean Platelet Volume 9.2 7.4-10.4 FL Neutrophils (%) (Auto) 71 42-75 % Lymphocytes (%) (Auto) 19 12-44 % Monocytes (%) (Auto) 9 0-12 % Eosinophils (%) (Auto) 1 0-10 % Basophils (%) (Auto) 0 0-10 % Neutrophils # (Auto) 7.4 1.8-7.8 X 10^3 Lymphocytes # (Auto) 2.0 1.0-4.0 X 10^3 Monocytes # (Auto) 1.0 0.0-1.0 X 10^3 Eosinophils # (Auto) 0.1 0.0-0.3 10^3/uL Basophils # (Auto) 0.0 0.0-0.1 10^3/uL Sodium Level 132 L 135-145 MMOL/L Potassium Level 3.7 3.6-5.0 MMOL/L Chloride Level 96 L 98-107 MMOL/L Carbon Dioxide Level 25 21-32 MMOL/L Anion Gap 11 5-14 MMOL/L Blood Urea Nitrogen 10 7-18 MG/DL Creatinine 0.70 0.60-1.30 MG/DL Estimat Glomerular Filtration Rate > 60 BUN/Creatinine Ratio 14 Glucose Level 96 70-105 MG/DL Calcium Level 9.1 8.5-10.1 MG/DL Total Bilirubin 0.5 0.1-1.0 MG/DL Aspartate Amino Transf (AST/SGOT) 18 5-34 U/L Alanine Aminotransferase (ALT/SGPT) 17 0-55 U/L Alkaline Phosphatase 60 40-136 U/L Total Protein 6.3 L 6.4-8.2 GM/DL Albumin 3.8 3.2-4.5 GM/DL Amylase Level 34 25-125 U/L Lipase 18 8-78 U/L My Orders Orders - FRANCHESCA COTTER DO Amylase (04/16/17 18:06) Cbc With Automated Diff (04/16/17 18:06) Comprehensive Metabolic Panel (04/16/17 18:06) Lipase (04/16/17 18:06) Acute Abd Series (04/16/17 18:06) Ondansetron Injection (Zofran Injectio (04/16/17 18:15) Ct Abdomen/Pelvis Wo (04/16/17 18:06) Medications Given in ED Current Medications Medications Dose Ordered Sig/Linda Route Start Time Stop Time Status Last Admin Dose Admin Ondansetron HCl 4 mg ONCE ONCE IVP 04/16/17 18:15 04/16/17 18:16 DC 04/16/17 19:06 4 MG Vital Signs/I&O Vital Sign - Last 12Hours 04/16/17 15:19 Temp 98.3 Pulse 70 Resp 18 B/P (MAP) 168/84 (112) Pulse Ox 100 O2 Delivery Room Air Blood Pressure Mean: 112 Progress Note : Progress Note UNEVENTFUL ER STAY NO FURTHER COMPLAINTS OF NAUSEA PT STATES AT DISMISSAL, SHE HAS SCREENING COLONOSCOPY SCHEDULED FOR 05/04/17-- HAS NEVER HAD ONE BEFORE Diagnostic Imaging Comments ACUTE ABDOMEN XRAYS--NO ACUTE PROCESS CT ABDOMEN/PELVIS--NO ACUTE PROCESS PER RADIOLOGIST REPORTS @ 1958 Reviewed: Reviewed by Me Departure Impression Impression: Primary Impression: Nausea Additional Impressions: POSSIBLE GASTROENTERITIS Constipation Disposition: HOME, SELF-CARE Condition: Improved Departure-Patient Inst. Referrals: SAMUEL NI MD (PCP/Family) Primary Care Physician Patient Instructions: Nausea and Vomiting, Adult (DC), Viral Gastroenteritis, Adult (DC) Add. Discharge Instructions: CLEAR LIQUIDS--WATER, BROTH, JELLO, GATORADE WHEN YOUR NAUSEA IS BETTER, ADD BRATS DIET TO CLEAR LIQUIDS--BANANAS, RICE, APPLESAUCE, TOAST, SALTINES FOLLOW UP WITH DR. NI ON WEDNESDAY OF NO BETTER ON WEDNESDAY RETURN TO ER IF WORSE All discharge instructions reviewed with patient and/or family. Voiced understanding. Scripts Ondansetron (Zofran Odt) 4 Mg Tab.rapdis 4 MG PO Q4H for Nausea/Vomiting, #10 TAB Prov: FRANCHESCA COTTER DO 04/16/17 FRANCHESCA COTTER DO Apr 16, 2017 18:26
[2017-04-16 19:13] LABS: BASOPHILS % (AUTO) 0 % (0-10); EOSINOPHILS # (AUTO) 0.1 10^3/uL (0.0-0.3); EOSINOPHILS % (AUTO) 1 % (0-10); HEMATOCRIT 37 % (35-52); HEMOGLOBIN 12.8 G/DL (11.5-16.0); LYMPHOCYTES % (AUTO) 19 % (12-44); MEAN CORPUSCULAR HEMOGLOBIN 33 PG (25-34); MEAN CORPUSCULAR HGB CONC 35 G/DL (32-36); MEAN CORPUSCULAR VOLUME 96 FL (80-99); MEAN PLATELET VOLUME 9.2 FL (7.4-10.4); MONOCYTES % (AUTO) 9 % (0-12); NEUTROPHILS # (AUTO) 7.4 X 10^3 (1.8-7.8); NEUTROPHILS % (AUTO) 71 % (42-75); PLATELET COUNT 273 10^3/uL (130-400); RED BLOOD COUNT 3.83 10^6/uL (4.35-5.85); RED CELL DISTRIBUTION WIDTH 12.1 % (10.0-14.5); WHITE BLOOD COUNT 10.4 10^3/uL (4.3-11.0)
--- NOTE | 2017-04-16 19:30 | Diagnostic Imaging Report ---
PROCEDURE: CT abdomen and pelvis without contrast. TECHNIQUE: Multiple contiguous axial images were obtained through the abdomen and pelvis without the use of intravenous contrast. INDICATION: Sick to the stomach 4-5 days. Exam compared 10/01/2016. FINDINGS: There is noninflamed diverticulosis of the sigmoid colon. The appendix is visualized and is normal. There is no hydronephrosis. Left renal cortical cyst is unchanged from priors. No hydronephrosis. The gallbladder absent. There is no bile duct dilatation. The pancreas, spleen and adrenals were unremarkable. There is no ascites, abscess, hematoma or other fluid collection. The uterus, adnexa and urinary bladder unremarkable. There is no inflammatory process. No perforation. No abdominal wall defect, hernia or fluid collection. IMPRESSION: Noninflamed diverticulosis, stable renal cyst. No obstructive phenomena, inflammatory process or acute appearing abdominal pelvic abnormalities. Dictated by: Dictated on workstation # [id number]
[2017-04-16 19:42] LABS: ALANINE AMINOTRANSFERASE 17 U/L (0-55); ALBUMIN 3.8 GM/DL (3.2-4.5); ALKALINE PHOSPHATASE 60 U/L (40-136); AMYLASE 34 U/L (25-125); BILIRUBIN,TOTAL 0.5 MG/DL (0.1-1.0); CALCIUM 9.1 MG/DL (8.5-10.1); CARBON DIOXIDE 25 MMOL/L (21-32); CHLORIDE 96 MMOL/L (98-107); GLUCOSE 96 MG/DL (70-105); LIPASE 18 U/L (8-78); POTASSIUM 3.7 MMOL/L (3.6-5.0); SODIUM 132 MMOL/L (135-145); TOTAL PROTEIN 6.3 GM/DL (6.4-8.2)
--- NOTE | 2017-04-16 19:42 | Diagnostic Imaging Report ---
INDICATION: Nausea and weakness. Abdominal series performed with a frontal chest radiograph and supine upper abdominal films. FINDINGS: Frontal chest view shows heart normal in size with the lungs clear. There is no pneumothorax or pleural fluid. There is no free intraperitoneal air on the upright view. There are surgical clips in right upper quadrant. The bowel gas pattern is nonspecific with moderate stool throughout the colon. There are phleboliths in the pelvis. IMPRESSION: Nonspecific bowel gas pattern with no sign of obstruction or ileus. No free air. Surgical clips in right upper quadrant. No acute pulmonary infiltrate. Dictated by: Dictated on workstation # [id number]
[2017-04-16 20:02] LABS: BUN/CREATININE RATIO 14; GFR ESTIMATED > 60
[2017-04-16] MEDS ORDERED: ONDA4TAB8 PO (20:11)
[2017-04-16 20:42] VITALS: BP 120/77
== END 2017-04-16 20:44 | disposition home or self-care (01) ==
LOC: EDUNIT# 14:03 → ER 14:04
DX: K59.00 Constipation, unspecified (principal); R11.0 Nausea; I10 Essential (primary) hypertension; F41.9 Anxiety disorder, unspecified; K21.9 Gastro-esophageal reflux disease without esophagitis; Z87.440 Personal history of urinary (tract) infections; Z87.19 Personal history of other diseases of the digestive system; Z90.89 Acquired absence of other organs
CPT/HCPCS: 36415; 74022; 74176; 80053; 81000; 82150; 83690; 85025

== ENCOUNTER 2017-04-27 05:39 | Outpatient (CLI) | payer MEDICARE ==
[~2017-04-27] VITALS: Ht 160 cm; Wt 75.3 kg
[~2017-04-27 05:39] MED LIST changes: +ONDA4TAB8 PO
[2017-04-27] MEDS ORDERED: MELO7.5T46 PO (11:51)
[2017-04-27] MEDS ORDERED: LATA2.5D5 OP (11:51)
== END 2017-04-27 11:52 ==
LOC: PREOP 05:39
PROVIDERS: ATTEND Surgery
DX: Z01.818 Encounter for other preprocedural examination (principal); R19.4 Change in bowel habit

== ENCOUNTER 2017-05-04 08:21 | Day surgery (SDC) | payer MEDICARE ==
[~2017-05-04] VITALS: Ht 160 cm; Wt 75.3 kg
[~2017-05-04 08:21] MED LIST changes: +LATA2.5D5 OP; +MELO7.5T46 PO
--- OUTSIDE RECORDS SUMMARY | 2017-05-04 08:26 | XMS REPORT | Continuity of Care Document ---
Author Author [facility] Organization [facility] Address Unknown Phone Unavailable Care Team Providers Care Recycling Program Manager Name Role Phone [employer] Unavailable Unavailable Problems Medications Allergies, Adverse Reactions, Alerts Immunizations Results Vital Signs Encounters Location Location Details Encounter Type Encounter Number Reason For Visit Attending Provider ADM Date DC Date Status Source O DONOVAN LEÓN 12/16/2016 Active [facility] SPECIMEN [id number] DONOVAN LEÓN 12/16/2016 12/16/2016 Active [facility] Procedures Plan of Care Social History Assessment and Plan Family History Advance Directives Functional Status
--- OUTSIDE RECORDS SUMMARY | 2017-05-04 08:26 | XMS REPORT | Clinical Summary ---
Author Author [facility] Organization [facility] Address Unknown Phone Unavailable Care Team Providers Care Family Consumer Science Teacher Name Role Phone No Pcp, Na PCP Unavailable Source Comments Some departments are not documenting in the electronic medical record. If you do not see the information that you expected, contact Release of Information in the Health Information Management department at [phone] for further assistance in locating additional records.[facility] Allergies Active Allergy Reactions Severity Noted Date [...]
--- OUTSIDE RECORDS SUMMARY | 2017-05-04 08:30 | XMS REPORT | CCD ---
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 Name Role Phone PP Unavailable CCM Unavailable Summary Purpose Interface Exchange Insurance Providers Payer name Policy type / Coverage type Covered republican ID Effective Begin Date Effective End Date WPS Medicare Part B Medicare Part B [id number] Unknown Unknown AARP Medicare Part B [id number] Unknown Unknown Family History Family History data not found Social History Social History Element Codes Description Effective Dates Marital status Unknown 04/30/[address]: 662305675 Never smoker 04/30/[address]: 928721834 Never drinks alcohol 04/30/2016 Allergies, Adverse Reactions, Alerts Substance Reaction Codes Entered Date Inactivated Date Status cephalexin rash RxNorm: 2231 10/28/2016 No Inactive Date Active ultram pruritis RxNorm: 54149 08/24/2016 No Inactive Date Active Past Medical History Illness Codes Condition Status Onset Date Resolved Date Dysuria ICD-9: 788.1 ICD-10: R30.0 Active 06/11/2016 Unknown Generalized anxiety disorder ICD-9: 300.02 ICD-10: F41.1 Active 07/14/2016 Unknown Other fatigue ICD-9: 780.79 ICD-10: R53.83 Active 03/19/2017 Unknown Other malaise ICD-9: 780.79 ICD-10: R53.81 Active 03/19/2017 Unknown Left lower quadrant pain ICD-9: 789.04 ICD-10: R10.32 Active 03/08/2017 Unknown Urinary tract infection, site not specified ICD-9: 599.0 ICD-10: N39.0 Active 06/01/2016 Unknown Rash and other nonspecific skin eruption ICD-9: 782.1 ICD-10: R21 Active 12/30/2016 Unknown Localized edema ICD-9 : 782.3 ICD-10: R60.0 Active 12/22/2016 Unknown Pain in left lower leg ICD-9: 729.5 ICD-10: M79.662 Active 12/22/2016 Unknown 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 ICD-9: 454.9 ICD-10: I83.92 Active 11/20/2016 Unknown Encounter for immunization ICD-9: V04.81 ICD-10: Z23 Active 12/18/2016 Unknown Allergic rhinitis due to pollen ICD-9: 477.0 ICD-10: J30.1 Active 10/13/2016 Unknown 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 Active 10/08/2016 Unknown Essential (primary) hypertension ICD-9: 401.1 ICD-10: I10 Active 04/30/2016 Unknown Personal history of urinary (tract) infections ICD-9: V13.02 ICD-10: Z87.440 Active 09/03/2016 Unknown Candidal stomatitis ICD-9: 112.0 ICD-10: B37.0 Active 06/15/2016 Unknown Hypo-osmolality and hyponatremia ICD-9: 276.1 ICD-10: E87.1 Active 04/30/2016 Unknown Gastro-esophageal reflux disease without esophagitis ICD-9: 530.81 ICD-10: K21.9 Active 06/15/2016 Unknown Pelvic and perineal pain ICD-9: [id number] ICD-10: R10.2 Active 08/03/2016 Unknown Vitamin B12 deficiency anemia, unspecified ICD-9: 281.1 ICD-10: D51.9 Active 07/14/2016 Unknown Other specified noninflammatory disorders of vagina ICD-9: 623.5 ICD-10: N89.8 Active 07/10/2016 Unknown Major depressive disorder, recurrent, 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.31 ICD-10: F33.0 Active 07/10/2016 Unknown Essential (primary) hypertension ICD-9: 401.9 ICD-10: I10 Active 06/01/2016 Unknown Hyperuricemia without signs of inflammatory arthritis and tophaceous disease ICD-9: 790.6 ICD-10: E79.0 Active 05/28/2016 Unknown Pain in left toe(s) ICD-9: 729.5 ICD-10: M79.675 Active 05/11/2016 Unknown Tinea unguium ICD-9: 110.1 ICD-10: B35.1 Active 05/11/2016 Unknown Impacted cerumen, unspecified ear ICD-9: 380.4 ICD-10: H61.20 Active 05/06/2016 Unknown Problems Condition Codes Effective Dates Condition Status Dysuria ICD-9: 788.1 ICD-10: R30.0 06/11/2016 Active Generalized anxiety disorder ICD-9: 300.02 ICD-10: F41.1 07/14/2016 Active Other fatigue ICD-9: 780.79 ICD-10: R53.83 03/19/2017 Active Other malaise ICD-9: 780.79 ICD-10: R53.81 03/19/2017 Active Left lower quadrant pain ICD-9: 789.04 ICD-10: R10.32 03/08/2017 Active Urinary tract infection, site not specified ICD-9: 599.0 ICD-10: N39.0 06/01/2016 Active Rash and other nonspecific skin eruption ICD-9: 782.1 ICD-10: R21 12/30/2016 Active Localized edema ICD-9 : 782.3 ICD-10: R60.0 12/22/2016 Active Pain in left lower leg ICD-9: 729.5 ICD-10: M79.662 12/22/2016 Active 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 ICD-9: 454.9 ICD-10: I83.92 11/20/2016 Active Encounter for immunization ICD-9: V04.81 ICD-10: Z23 12/18/2016 Active Allergic rhinitis due to pollen ICD-9: 477.0 ICD-10: J30.1 10/13/2016 Active 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 10/08/2016 Active Essential (primary) hypertension ICD-9: 401.1 ICD-10: I10 04/30/2016 Active Personal history of urinary (tract) infections ICD-9: V13.02 ICD-10: Z87.440 09/03/2016 Active Candidal stomatitis ICD-9: 112.0 ICD-10: B37.0 06/15/2016 Active Hypo-osmolality and hyponatremia ICD-9: 276.1 ICD-10: E87.1 04/30/2016 Active Gastro-esophageal reflux disease without esophagitis ICD-9: 530.81 ICD-10: K21.9 06/15/2016 Active Pelvic and perineal pain ICD-9: [id number] ICD-10: R10.2 08/03/2016 Active Vitamin B12 deficiency anemia, unspecified ICD-9: 281.1 ICD-10: D51.9 07/14/2016 Active Other specified noninflammatory disorders of vagina ICD-9: 623.5 ICD-10: N89.8 07/10/2016 Active Major depressive disorder, recurrent, 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.31 ICD-10: F33.0 07/10/2016 Active Essential (primary) hypertension ICD-9: 401.9 ICD-10: I10 06/01/2016 Active Hyperuricemia without signs of inflammatory arthritis and tophaceous disease ICD-9: 790.6 ICD-10: E79.0 05/28/2016 Active Pain in left toe(s) ICD-9: 729.5 ICD-10: M79.675 05/11/2016 Active Tinea unguium ICD-9: 110.1 ICD-10: B35.1 05/11/2016 Active Impacted cerumen, unspecified ear ICD-9: 380.4 ICD-10: H61.20 05/06/2016 Active Medications Medication Codes Instructions Start Date Stop Date Status Fill Instructions Cipro 500 mg tablet RxNorm: 575912 1 Tablet(s) PO BID 201704/16/2017 Inactive Cipro 500 mg tablet RxNorm: 910744 1 Tablet(s) PO BID 201603/25/2017 Inactive hydrocodone 5 mg-acetaminophen 325 mg tablet RxNorm: 765324 1 Tablet(s) PO Q6 as needed 03/05/2017 03/19/2017 Inactive Diflucan 150 mg tablet RxNorm: 658108 1 Tablet(s) PO daily 03/05/2017 Inactive Diflucan 150 mg tablet RxNorm: 505238 1 Tablet(s) PO daily 02/28/2017 Inactive Seasonique 0.15 mg-30 mcg (84)/10 mcg(7) tablets,3 month dose pack RxNorm: 514047 1 Tablet(s) PO UD 02/24/2017 02/24/2017 Inactive losartan 50 mg tablet RxNorm: 951638 TAKE ONE TABLET BY MOUTH ONCE DAILY IN THE MORNING 02/23/2017 No Stop Date Active Diflucan 150 mg tablet RxNorm: 258994 1 Tablet(s) PO daily 09/201602/14/2017 Inactive Cipro 500 mg tablet RxNorm: 387684 1 Tablet(s) PO BID 201601/21/2017 Inactive Augmentin 500 mg-125 mg tablet RxNorm: 216824 1 Tablet(s) PO TID 12/30/2016 12/29/2016 Inactive Augmentin 500 mg-125 mg tablet RxNorm: 139157 1 Tablet(s) PO TID 12/30/2016 01/05/2017 Inactive hydrocodone 5 mg-acetaminophen 325 mg tablet RxNorm: 742204 1 Tablet(s) PO Q6 as needed 12/24/2016 01/07/2017 Inactive omeprazole 40 mg capsule,delayed release RxNorm: 058335 TAKE ONE CAPSULE BY MOUTH ONCE DAILY 12/08/2016 04/06/2017 Inactive Diflucan 150 mg tablet RxNorm: 946672 1 Tablet(s) PO daily 12/02/2016 Inactive Xanax 0.25 mg tablet RxNorm: 303632 1/2-1 Tablet(s) PO TID as needed 11/24/2016 01/22/2017 Inactive Xanax 0.25 mg tablet RxNorm: 029585 1/2-1 Tablet(s) PO TID as needed 11/24/2016 01/21/2017 Inactive sucralfate 1 gram tablet RxNorm: 191333 TAKE ONE TABLET BY MOUTH BEFORE MEALS AND AT BEDTIME 11/20/2016 12/19/2016 Inactive Diflucan 150 mg tablet RxNorm: 403599 1 Tablet(s) PO daily 11/22/2016 Inactive Levaquin 500 mg tablet RxNorm: 544560 1 Tablet(s) PO daily 10/201611/08/2016 Inactive Levaquin 500 mg tablet RxNorm: 589147 1 Tablet(s) PO daily 10/201611/15/2016 Inactive losartan 50 mg tablet RxNorm: 915229 1 Tablet(s) PO QAM 201602/22/2017 Inactive hydrocodone 5 mg-acetaminophen 325 mg tablet RxNorm: 962985 1 Tablet(s) PO Q6 as needed 10/26/2016 11/09/2016 Inactive Kenalog 40 mg/mL suspension for injection RxNorm: 9794110 1 Milliliter(s) Inj 10/08/2016 10/08/2016 Inactive prednisone 5 mg tablets in a dose pack RxNorm: 027337 1 Tablet(s) PO UD 10/08/2016 10/12/2016 Inactive 6-5-4-3-2-1 Diflucan 150 mg tablet RxNorm: 854020 1 Tablet(s) PO daily 06/201610/04/2016 Inactive Diflucan 150 mg tablet RxNorm: 062199 1 Tablet(s) PO daily 06/201610/09/2016 Inactive Lexapro 10 mg tablet RxNorm: 732384 1 Tablet(s) PO QHS 201601/26/2017 Inactive cefdinir 300 mg capsule RxNorm: 170537 1 Capsule(s) PO BID 10/07/2016 Inactive Lexapro 5 mg tablet RxNorm: 007515 1 Tablet(s) PO QHS 201609/28/2016 Inactive trimethoprim 100 mg tablet RxNorm: 151680 1 Tablet(s) PO daily 09/03/2016 03/01/2017 Inactive hydrocodone 5 mg-acetaminophen 325 mg tablet RxNorm: 198808 1 Tablet(s) PO Q6 as needed 08/28/2016 09/11/2016 Inactive Diflucan 150 mg tablet RxNorm: 886284 1 Tablet(s) PO QW as needed symptoms of thrush 08/26/2016 09/28/2016 Inactive Xanax 0.25 mg tablet RxNorm: 508893 1/2-1 Tablet(s) PO TID as needed 08/24/2016 10/20/2016 Inactive tramadol 50 mg tablet RxNorm: 794512 1-2 Tablet(s) PO Q6 as needed for pain 08/14/2016 09/28/2016 Inactive amoxicillin 500 mg capsule RxNorm: 584035 1 Capsule(s) PO TID 08/11/2016 08/20/2016 Inactive nystatin 100,000 unit/mL oral suspension RxNorm: 497939 5 Milliliter(s) PO QID 08/11/2016 08/17/2016 Inactive cefdinir 300 mg capsule RxNorm: 816947 1 Capsule(s) PO BID 12/201608/20/2016 Inactive losartan 50 mg tablet RxNorm: 960841 1 Tablet(s) PO QAM 201610/24/2016 Inactive fluconazole 200 mg tablet RxNorm: 094373 1 Tablet(s) PO daily 07/19/2016 07/28/2016 Inactive cefuroxime axetil 500 mg tablet RxNorm: 386628 1 Tablet(s) PO BID 07/19/2016 08/02/2016 Inactive Xanax 0.25 mg tablet RxNorm: 882358 1/2-1 Tablet(s) PO QDAY PRN 07/14/2016 08/23/2016 Inactive cyanocobalamin (vit B-12) 1,000 mcg/mL injection solution RxNorm: 480329 1 Milliliter(s) Inj 07/14/2016 07/14/2016 Inactive Diflucan 150 mg tablet RxNorm: 527879 1 Tablet(s) PO daily 10/201607/17/2016 Inactive Keflex 250 mg capsule RxNorm: 676711 1 Capsule(s) PO QHS 201607/13/2016 Inactive Lexapro 5 mg tablet RxNorm: 732548 1 Tablet(s) PO QHS TO START AFTER YOU ARE FINISHED WITH THE DIFLUCAN!! 06/30/2016 Inactive cefuroxime axetil 250 mg tablet RxNorm: 591714 1 Tablet(s) PO BID 06/26/2016 06/25/2016 Inactive ceftriaxone 500 mg solution for injection RxNorm: 9060725 1 Milliliter(s) Inj 06/26/2016 06/26/2016 Inactive cefuroxime axetil 250 mg tablet RxNorm: 380536 1 Tablet(s) PO BID 06/26/2016 07/05/2016 Inactive Diflucan 150 mg tablet RxNorm: 744399 1 Tablet(s) PO QW as needed symptoms of thrush 06/23/2016 08/02/2016 Inactive Zantac 150 mg tablet RxNorm: 487027 1 Tablet(s) PO daily 201607/14/2016 Inactive Xanax 0.25 mg tablet RxNorm: 895784 1/2-1 Tablet(s) PO HS PRN 06/05/2016 07/13/2016 Inactive Keflex 250 mg capsule RxNorm: 699716 1 Capsule(s) PO QHS as needed 06/05/2016 07/04/2016 Inactive Cipro 500 mg tablet RxNorm: 213605 1 Tablet(s) PO BID 201606/07/2016 Inactive ceftriaxone 500 mg solution for injection RxNorm: 9141255 1 Milliliter(s) Inj 05/28/2016 05/28/2016 Inactive cefdinir 300 mg capsule RxNorm: 245088 1 Capsule(s) PO BID 05/31/2016 Inactive metronidazole 500 mg tablet RxNorm: 046872 1 Tablet(s) PO BID 05/28/2016 06/03/2016 Inactive sucralfate 1 gram tablet RxNorm: 811827 1 Tablet(s) PO AC & HS 05/21/2016 07/20/2016 Inactive sucralfate 1 gram tablet RxNorm: 871999 1 Tablet(s) PO AC & HS 05/21/2016 05/20/2016 Inactive omeprazole 40 mg capsule,delayed release RxNorm: 648105 1 Capsule(s) PO daily 05/21/2016 08/18/2016 Inactive omeprazole 40 mg capsule,delayed release RxNorm: 616968 1 Capsule(s) PO daily 05/21/2016 05/20/2016 Inactive losartan 50 mg tablet RxNorm: 291305 1 Tablet(s) PO QAM 201607/26/2016 Inactive latanoprost 0.005 % eye drops RxNorm: 943080 1 Drop(s) OPH daily No Start Date Active Culturelle 15 billion cell sprinkle capsule RxNorm: 7394070 1 Capsule(s) PO TID No Start Date Active Calcium 500 + D (D3) oral RxNorm: 931171 oral No Start Date Active cranberry 500 mg capsule RxNorm: 249263 1 Capsule(s) PO daily No Start Date Active Ocuvite Lutein and Zeaxanthin 60 mg-30 unit-15 mg-2 mg-6 mg capsule RxNorm: 937946 1 Capsule(s) PO daily No Start Date Active Pyridium 200 mg tablet RxNorm: 9597461 1 Tablet(s) PO TID as needed No Start Date Active Toviaz 4 mg tablet,extended release RxNorm: 309009 1 Tablet(s) PO daily No Start Date Active Klor-Con 10 mEq tablet,extended release RxNorm: 168321 1 Tablet(s) PO BID No Start Date Active Estrace 0.01% (0.1 mg/gram) vaginal cream RxNorm: 919453 1 Application VAG TIW No Start Date 07/13/2016 Inactive allopurinol 300 mg tablet RxNorm: 550163 1 Tablet(s) PO daily No Start Date 06/22/2016 Inactive triamterene 37.5 mg-hydrochlorothiazide 25 mg tablet RxNorm: 219695 1 Tablet(s) PO daily No Start Date 10/07/2016 Inactive Seasonique 0.15 mg-30 mcg (84)/10 mcg(7) tablets,3 month dose pack RxNorm: 729794 1 Tablet(s) PO UD No Start Date 2016 Inactive hydrocodone 5 mg-acetaminophen 325 mg tablet RxNorm: 871745 1 Tablet(s) PO as needed No Start Date 08/27/2016 Inactive meloxicam 7.5 mg tablet RxNorm: 690831 1 Tablet(s) PO daily as needed No Start Date 10/07/2016 Inactive Multivitamins FC tablet RxNorm: 1 Tablet(s) PO daily No Start Date 10/07/2016 Inactive Fish Oil 1,000 mg capsule RxNorm: 1 Capsule(s) PO BID No Start Date 05/27/2016 Inactive tramadol 50 mg tablet RxNorm: 523051 1-2 Tablet(s) PO Q6 as needed for pain No Start Date 08/13/2016 Inactive Medication Administered Medication Codes Instructions Start Date Status Kenalog 40 mg/mL suspension for injection RxNorm: 1395915 1Milliliter 10/08/2016 No longer Active cyanocobalamin (vit B-12) 1,000 mcg/mL injection solution RxNorm: 282357 1Milliliter 07/14/2016 No longer Active ceftriaxone 500 mg solution for injection RxNorm: 7640821 1Milliliter 06/26/2016 No longer Active ceftriaxone 500 mg solution for injection RxNorm: 9759619 1Milliliter 05/28/2016 No longer Active Immunizations Vaccine Codes Date Status Pneumococcal CVX: 133 04/01/2017 completed Influenza CVX: 141 12/18/2016 completed Assessments Condition Codes Effective Dates Dysuria ICD-10: R30.0 ICD-9: 788.1 04/01/2017 Generalized anxiety disorder ICD-10: F41.1 ICD-9: 300.02 03/19/2017 Other fatigue ICD-10: R53.83 ICD-9: 780.79 03/19/2017 Other malaise ICD-10: R53.81 ICD-9: 780.79 03/19/2017 Left lower quadrant pain ICD-10: R10.32 ICD-9: 789.04 03/08/2017 Urinary tract infection, site not specified ICD-10: N39.0 ICD-9: 599.0 01/15/2017 Rash and other nonspecific skin eruption ICD-10: R21 ICD-9: 782.1 12/30/2016 Localized edema ICD-10: R60.0 ICD-9: 782.3 12/22/2016 Pain in left lower leg ICD-10: M79.662 ICD-9: 729.5 12/22/2016 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 ICD-10: I83.92 ICD-9: 454.9 12/18/2016 Encounter for immunization ICD-10: Z23 ICD-9: V04.81 12/18/2016 Allergic urticaria ICD-10: L50.0 ICD-9: 708.0 10/13/2016 Allergic rhinitis due to pollen ICD-10: J30.1 ICD-9: 477.0 10/13/2016 Essential (primary) hypertension ICD-10: I10 ICD-9: 401.1 09/29/2016 Personal history of urinary (tract) infections ICD-10: Z87.440 ICD-9: V13.02 09/03/2016 Hypo-osmolality and hyponatremia ICD-10: E87.1 ICD-9: 276.1 08/11/2016 Pelvic and perineal pain ICD-10: R10.2 ICD-9: BXA1077 08/11/2016 Candidal stomatitis ICD-10: B37.0 ICD-9: 112.0 08/11/2016 Gastro-esophageal reflux disease without esophagitis ICD-10 : K21.9 ICD-9: 530.81 07/27/2016 Vitamin B12 deficiency anemia, unspecified ICD-10: D51.9 ICD-9: 281.1 07/14/2016 Other specified noninflammatory disorders of vagina ICD-10: N89.8 ICD-9: 623.5 07/10/2016 Major depressive disorder, recurrent, mild ICD-10: F33.0 ICD-9: 296.31 07/10/2016 Hyperuricemia without signs of inflammatory arthritis and tophaceous disease ICD-10: E79.0 ICD-9: 790.6 05/28/2016 Tinea unguium ICD-10: B35.1 ICD-9: 110.1 05/11/2016 Pain in left toe(s) ICD-10: M79.675 ICD-9: 729.5 05/11/2016 Impacted cerumen, unspecified ear ICD-10: H61.20 ICD-9: 380.4 05/06/2016 Reason For Visit Reason For Visit Effective Dates Notes fatigue 03/19/2017 abdominal pain 03/08/2017 urinary frequency 02/02/2017 with burning dysuria 01/15/2017 rash 12/30/2016 edema 12/22/2016 vaccination against influenza 12/18/2016 edema 11/20/2016 dysuria 11/16/2016 dysuria 10/28/2016 abdominal pain 10/13/2016 rash 10/08/2016 nausea 09/29/2016 she is taking culturelle TID before meals and eating yogurt dysuria 09/03/2016 depression 08/24/2016 dysuria 08/11/2016 depression 08/03/2016 dysuria 07/27/2016 dysuria 07/21/2016 depression 07/14/2016 depression 07/10/2016 depression 07/03/2016 depression 06/30/2016 hypertension 06/23/2016 nausea 06/15/2016 hypertension 06/05/2016 dysuria 06/01/2016 hypertension 05/28/2016 ingrown toenail 05/11/2016 diarrhea 04/30/2016 Results Observation Observation Code Item Item Code Result Date Culture Urine [id number] URINE CULTURE SEE NOTES 04/06/2017 Culture Urine [id number] Continued Results 04/06/2017 Urine Culture Ucult Complete >100,000 col/ml aerobic growth sent to ref lab 04/02/2017 Culture Urine [id number] URINE CULTURE SEE NOTES 03/22/2017 Culture Urine [id number] Continued Results 03/22/2017 Urine Culture Ucult Complete >100,000 col/ml aerobic growth sent to ref lab 03/20/2017 Comp Metabolic Dsm388 NA 131 mEq/L 03/19/2017 Comp Metabolic Htk075 K 4.0 mEq/L 03/19/2017 Comp Metabolic Sgl504 CL 93 mEq/L 03/19/2017 Comp Metabolic Vpz440 CO2 28.0 mEq/L 03/19/2017 Comp Metabolic Hdm541 ANION GAP 14 03/19/2017 Comp Metabolic Dun361 GLUCOSE 94 mg/dL 03/19/2017 Comp Metabolic Dhj664 Creat 0.8 mg/dL 03/19/2017 Comp Metabolic Xhy538 eGFR 69 ml/min/1.73m2 03/19/2017 Comp Metabolic Cgc319 BUN 16 mg/dL 03/19/2017 Comp Metabolic Vff225 B/C Ratio 19.3 Ratio 03/19/2017 Comp Metabolic Dzm927 CALCIUM 9.5 mg/dL 03/19/2017 Comp Metabolic Tma422 ALK PHOS 54 U/L 03/19/2017 Comp Metabolic Duy819 AST(SGOT) 22 U/L 03/19/2017 Comp Metabolic Sma204 ALT(SGPT) 18 U/L 03/19/2017 Comp Metabolic Nxy080 BILI T 0.4 mg/dL 03/19/2017 Comp Metabolic Sgb255 ALBUMIN 4.2 g/dL 03/19/2017 Comp Metabolic Yun845 TPRO 6.2 g/dL 03/19/2017 Comp Metabolic Gec026 GLOB 2.0 g/dL 03/19/2017 Comp Metabolic Bci399 A/G Ratio 2.2 Ratio 03/19/2017 Comp Metabolic Yck587 Osmo 264 mOsmo 03/19/2017 Cbc With Differential Ord2 WBC 12.07 K/ul 03/19/2017 Cbc With Differential Ord2 RBC 3.94 M/ul 03/19/2017 Cbc With Differential Ord2 HGB 13.5 g/dl 03/19/2017 Cbc With Differential Ord2 Neut% 76.3 % 03/19/2017 Cbc With Differential Ord2 HCT 39.7 % 03/19/2017 Cbc With Differential Ord2 MCV 100.8 fl 03/19/2017 Cbc With Differential Ord2 Lymph% 12.3 % 03/19/2017 Cbc With Differential Ord2 MCH 34.3 pg 03/19/2017 Cbc With Differential Ord2 Garden% 10.3 % 03/19/2017 Cbc With Differential Ord2 MCHC 34.0 pg 03/19/2017 Cbc With Differential Ord2 Eos% 0.8 % 03/19/2017 Cbc With Differential Ord2 PLT 267 K/ul 03/19/2017 Cbc With Differential Ord2 Baso% 0.3 % 03/19/2017 Cbc With Differential Ord2 RDW 12.7 % 03/19/2017 Cbc With Differential Ord2 Neut ABS# 9.20 K/ul 03/19/2017 Cbc With Differential Ord2 Lymph ABS# 1.49 K/ul 03/19/2017 Cbc With Differential Ord2 Garden ABS# 1.2 K/ul 03/19/2017 Cbc With Differential Ord2 Eos ABS# 0.1 K/ul 03/19/2017 Cbc With Differential Ord2 Baso ABS# 0.0 K/ul 03/19/2017 Urine Culture Ucult Complete >100,000 col/ml aerobic growth sent to ref lab 01/01/2017 Urine Culture Ucult Complete NO Growth Day 2 11/23/2016 Urine Culture Ucult Preliminary NO Growth Day 1 11/23/2016 Urine Culture Ucult Preliminary NO Growth Day 1 10/01/2016 Urine Culture Ucult Complete NO Growth Day 2 10/01/2016 Metabolic Ord15 NA 131 mEq/L 08/11/2016 Metabolic Ord15 K 4.4 mEq/L 08/11/2016 Metabolic Ord15 CL 96 mEq/L 08/11/2016 Metabolic Ord15 CO2 27.0 mEq/L 08/11/2016 Metabolic Ord15 GLUCOSE 88 mg/dL 08/11/2016 Metabolic Ord15 BUN 19 mg/dL 08/11/2016 Metabolic Ord15 Creat 0.7 mg/dL 08/11/2016 Metabolic Ord15 B/C Ratio 26.4 Ratio 08/11/2016 Metabolic Ord15 eGFR 81 ml/min/1.73m2 08/11/2016 Metabolic Ord15 Osmo 264 mOsmo 08/11/2016 Metabolic Ord15 ANION GAP 12 08/11/2016 Metabolic Ord15 CALCIUM 9.3 mg/dL 08/11/2016 Culture Urine [id number] URINE CULTURE SEE NOTES 08/10/2016 Culture Urine [id number] Continued Results 08/10/2016 Urine Culture Ucult Complete >100,000 col/ml aerobic growth sent to ref lab 08/07/2016 Comp Metabolic Pdo401 NA 132 mEq/L 07/10/2016 Comp Metabolic Den890 K 3.9 mEq/L 07/10/2016 Comp Metabolic Tbd919 CL 94 mEq/L 07/10/2016 Comp Metabolic Pah101 CO2 28.0 mEq/L 07/10/2016 Comp Metabolic Ffx072 ANION GAP 14 07/10/2016 Comp Metabolic Avf885 GLUCOSE 96 mg/dL 07/10/2016 Comp Metabolic Pjv919 Creat 0.8 mg/dL 07/10/2016 Comp Metabolic Clq070 eGFR 70 ml/min/1.73m2 07/10/2016 Comp Metabolic Wsf465 BUN 22 mg/dL 07/10/2016 Comp Metabolic Rnw245 B/C Ratio 26.8 Ratio 07/10/2016 Comp Metabolic Ofi488 CALCIUM 10.2 mg/dL 07/10/2016 Comp Metabolic Ggg927 ALK PHOS 50 U/L 07/10/2016 Comp Metabolic Ibe446 AST(SGOT) 21 U/L 07/10/2016 Comp Metabolic Oox168 ALT(SGPT) 19 U/L 07/10/2016 Comp Metabolic Zaa484 BILI T 0.5 mg/dL 07/10/2016 Comp Metabolic Njn590 ALBUMIN 4.2 g/dL 07/10/2016 Comp Metabolic Urp205 TPRO 6.6 g/dL 07/10/2016 Comp Metabolic Yxo738 GLOB 2.4 g/dL 07/10/2016 Comp Metabolic Lpr445 A/G Ratio 1.8 Ratio 07/10/2016 Comp Metabolic Irq499 Osmo 268 mOsmo 07/10/2016 Wet Prep [id number] Yeast Vaginal TNP:Duplicate Order 2016 Wet Prep [id number] Trichomonas TNP:Duplicate Order 07/10/2016 Cbc With Differential Ord2 WBC 7.98 K/ul 07/10/2016 Cbc With Differential Ord2 RBC 4.05 M/ul 07/10/2016 Cbc With Differential Ord2 HGB 14.0 g/dl 07/10/2016 Cbc With Differential Ord2 HCT 40.5 % 07/10/2016 Cbc With Differential Ord2 Neut% 71.3 % 07/10/2016 Cbc With Differential Ord2 MCV 100.0 fl 07/10/2016 Cbc With Differential Ord2 Lymph% 16.9 % 07/10/2016 Cbc With Differential Ord2 MCH 34.6 pg 07/10/2016 Cbc With Differential Ord2 Garden% 10.7 % 07/10/2016 Cbc With Differential Ord2 MCHC 34.6 pg 07/10/2016 Cbc With Differential Ord2 Eos% 0.6 % 07/10/2016 Cbc With Differential Ord2 Baso% 0.5 % 07/10/2016 Cbc With Differential Ord2 PLT 269 K/ul 07/10/2016 Cbc With Differential Ord2 Neut ABS# 5.69 K/ul 07/10/2016 Cbc With Differential Ord2 RDW 13.0 % 07/10/2016 Cbc With Differential Ord2 Lymph ABS# 1.35 K/ul 07/10/2016 Cbc With Differential Ord2 Garden ABS# 0.9 K/ul 07/10/2016 Cbc With Differential Ord2 Eos ABS# 0.1 K/ul 07/10/2016 Cbc With Differential Ord2 Baso ABS# 0.0 K/ul 07/10/2016 Wet Prep [id number] Yeast Vaginal None 07/10/2016 Wet Prep [id number] Trichomonas None 07/10/2016 Comp Metabolic Arm392 NA 131 mEq/L 07/03/2016 Comp Metabolic Dfx057 K 4.4 mEq/L 07/03/2016 Comp Metabolic Fsq441 CL 92 mEq/L 07/03/2016 Comp Metabolic Fpx474 CO2 28.0 mEq/L 07/03/2016 Comp Metabolic Vwg385 ANION GAP 15 07/03/2016 Comp Metabolic Zee186 GLUCOSE 96 mg/dL 07/03/2016 Comp Metabolic Hny735 Creat 0.8 mg/dL 07/03/2016 Comp Metabolic Pyx147 eGFR 76 ml/min/1.73m2 07/03/2016 Comp Metabolic Crr822 BUN 22 mg/dL 07/03/2016 Comp Metabolic Tev089 B/C Ratio 28.9 Ratio 07/03/2016 Comp Metabolic Lef196 CALCIUM 10.3 mg/dL 07/03/2016 Comp Metabolic Grb072 ALK PHOS 49 U/L 07/03/2016 Comp Metabolic Lje607 AST(SGOT) 21 U/L 07/03/2016 Comp Metabolic Ekw924 ALT(SGPT) 19 U/L 07/03/2016 Comp Metabolic Xcc273 BILI T 0.5 mg/dL 07/03/2016 Comp Metabolic Jdn689 ALBUMIN 4.3 g/dL 07/03/2016 Comp Metabolic Amd519 TPRO 6.7 g/dL 07/03/2016 Comp Metabolic Bfv357 GLOB 2.4 g/dL 07/03/2016 Comp Metabolic Znu014 A/G Ratio 1.8 Ratio 07/03/2016 Comp Metabolic Zdd953 Osmo 266 mOsmo 07/03/2016 Cbc With Differential Ord2 WBC 8.91 K/ul 07/03/2016 Cbc With Differential Ord2 RBC 4.16 M/ul 07/03/2016 Cbc With Differential Ord2 HGB 14.1 g/dl 07/03/2016 Cbc With Differential Ord2 Neut% 72.5 % 07/03/2016 Cbc With Differential Ord2 HCT 41.2 % 07/03/2016 Cbc With Differential Ord2 Lymph% 15.7 % 07/03/2016 Cbc With Differential Ord2 MCV 99.0 fl 07/03/2016 Cbc With Differential Ord2 MCH 33.9 pg 07/03/2016 Cbc With Differential Ord2 Garden% 10.3 % 07/03/2016 Cbc With Differential Ord2 Eos% 0.7 % 07/03/2016 Cbc With Differential Ord2 MCHC 34.2 pg 07/03/2016 Cbc With Differential Ord2 PLT 291 K/ul 07/03/2016 Cbc With Differential Ord2 Baso% 0.8 % 07/03/2016 Cbc With Differential Ord2 RDW 13.5 % 07/03/2016 Cbc With Differential Ord2 Neut ABS# 6.46 K/ul 07/03/2016 Cbc With Differential Ord2 Lymph ABS# 1.40 K/ul 07/03/2016 Cbc With Differential Ord2 Garden ABS# 0.9 K/ul 07/03/2016 Cbc With Differential Ord2 Eos ABS# 0.1 K/ul 07/03/2016 Cbc With Differential Ord2 Baso ABS# 0.1 K/ul 07/03/2016 Magnesium Ord90 Mag 1.9 mg/dL 06/23/2016 Metabolic Ord15 NA 131 mEq/L 06/23/2016 Metabolic Ord15 K 4.2 mEq/L 06/23/2016 Metabolic Ord15 CL 95 mEq/L 06/23/2016 Metabolic Ord15 CO2 28.0 mEq/L 06/23/2016 Metabolic Ord15 GLUCOSE 93 mg/dL 06/23/2016 Metabolic Ord15 BUN 18 mg/dL 06/23/2016 Metabolic Ord15 Creat 0.7 mg/dL 06/23/2016 Metabolic Ord15 B/C Ratio 25.0 Ratio 06/23/2016 Metabolic Ord15 eGFR 81 ml/min/1.73m2 06/23/2016 Metabolic Ord15 Osmo 264 mOsmo 06/23/2016 Metabolic Ord15 ANION GAP 12 06/23/2016 Metabolic Ord15 CALCIUM 9.4 mg/dL 06/23/2016 Electrolytes Ord62 NA 129 mEq/L 06/11/2016 Electrolytes Ord62 K 3.9 mEq/L 06/11/2016 Electrolytes Ord62 CL 93 mEq/L 06/11/2016 Electrolytes Ord62 CO2 28.0 mEq/L 06/11/2016 Electrolytes Ord62 ANION GAP 12 06/11/2016 Comp Metabolic Vmy611 NA 127 mEq/L 06/05/2016 Comp Metabolic For368 K 4.0 mEq/L 06/05/2016 Comp Metabolic Abu138 CL 94 mEq/L 06/05/2016 Comp Metabolic Vrl798 CO2 26.0 mEq/L 06/05/2016 Comp Metabolic Yfo679 ANION GAP 11 06/05/2016 Comp Metabolic Tlf921 GLUCOSE 101 mg/dL 06/05/2016 Comp Metabolic Cii557 Creat 0.7 mg/dL 06/05/2016 Comp Metabolic Rpw988 eGFR 80 ml/min/1.73m2 06/05/2016 Comp Metabolic Nno149 BUN 15 mg/dL 06/05/2016 Comp Metabolic Qsg525 B/C Ratio 20.5 Ratio 06/05/2016 Comp Metabolic Bkt445 CALCIUM 9.2 mg/dL 06/05/2016 Comp Metabolic Wqx349 ALK PHOS 43 U/L 06/05/2016 Comp Metabolic Kot299 AST(SGOT) 32 U/L 06/05/2016 Comp Metabolic Izh507 ALT(SGPT) 43 U/L 06/05/2016 Comp Metabolic Vnt709 BILI T 0.4 mg/dL 06/05/2016 Comp Metabolic Mpd592 ALBUMIN 4.3 g/dL 06/05/2016 Comp Metabolic Ovz637 TPRO 6.2 g/dL 06/05/2016 Comp Metabolic Cqy090 GLOB 2.0 g/dL 06/05/2016 Comp Metabolic Akv098 A/G Ratio 2.2 Ratio 06/05/2016 Comp Metabolic Iok216 Osmo 256 mOsmo 06/05/2016 Cbc With Differential Ord2 WBC 7.60 K/ul 06/05/2016 Cbc With Differential Ord2 RBC 3.79 M/ul 06/05/2016 Cbc With Differential Ord2 HGB 13.2 g/dl 06/05/2016 Cbc With Differential Ord2 HCT 36.7 % 06/05/2016 Cbc With Differential Ord2 Neut% 74.4 % 06/05/2016 Cbc With Differential Ord2 Lymph% 13.6 % 06/05/2016 Cbc With Differential Ord2 MCV 96.8 fl 06/05/2016 Cbc With Differential Ord2 MCH 34.8 pg 06/05/2016 Cbc With Differential Ord2 Garden% 11.1 % 06/05/2016 Cbc With Differential Ord2 Eos% 0.5 % 06/05/2016 Cbc With Differential Ord2 MCHC 36.0 pg 06/05/2016 Cbc With Differential Ord2 Baso% 0.4 % 06/05/2016 Cbc With Differential Ord2 PLT 283 K/ul 06/05/2016 Cbc With Differential Ord2 Neut ABS# 5.66 K/ul 06/05/2016 Cbc With Differential Ord2 RDW 13.9 % 06/05/2016 Cbc With Differential Ord2 Lymph ABS# 1.03 K/ul 06/05/2016 Cbc With Differential Ord2 Garden ABS# 0.8 K/ul 06/05/2016 Cbc With Differential Ord2 Eos ABS# 0.0 K/ul 06/05/2016 Cbc With Differential Ord2 Baso ABS# 0.0 K/ul 06/05/2016 Culture Urine [id number] URINE CULTURE SEE NOTES 06/01/2016 Culture Urine [id number] Continued Results 06/01/2016 Urine Culture Ucult Complete >100,000 col/ml aerobic growth sent to ref lab 05/29/2016 Uric Acid Ord77 Uric A 2.4 mg/dL 05/28/2016 Metabolic Ord15 NA 131 mEq/L 05/28/2016 Metabolic Ord15 K 4.3 mEq/L 05/28/2016 Metabolic Ord15 CL 95 mEq/L 05/28/2016 Metabolic Ord15 CO2 26.0 mEq/L 05/28/2016 Metabolic Ord15 GLUCOSE 103 mg/dL 05/28/2016 Metabolic Ord15 BUN 18 mg/dL 05/28/2016 Metabolic Ord15 Creat 0.7 mg/dL 05/28/2016 Metabolic Ord15 B/C Ratio 25.0 Ratio 05/28/2016 Metabolic Ord15 eGFR 81 ml/min/1.73m2 05/28/2016 Metabolic Ord15 Osmo 265 mOsmo 05/28/2016 Metabolic Ord15 ANION GAP 14 05/28/2016 Metabolic Ord15 CALCIUM 9.7 mg/dL 05/28/2016 Metabolic Ord15 NA 125 mEq/L 04/30/2016 Metabolic Ord15 K 4.2 mEq/L 04/30/2016 Metabolic Ord15 CL 88 mEq/L 04/30/2016 Metabolic Ord15 CO2 28.0 mEq/L 04/30/2016 Metabolic Ord15 GLUCOSE 106 mg/dL 04/30/2016 Metabolic Ord15 BUN 15 mg/dL 04/30/2016 Metabolic Ord15 Creat 0.7 mg/dL 04/30/2016 Metabolic Ord15 B/C Ratio 21.1 Ratio 04/30/2016 Metabolic Ord15 eGFR 83 ml/min/1.73m2 04/30/2016 Metabolic Ord15 Osmo 253 mOsmo 04/30/2016 Metabolic Ord15 ANION GAP 13 04/30/2016 Metabolic Ord15 CALCIUM 9.7 mg/dL 04/30/2016 Review of Systems System Result Effective Dates Constitutional recent illness 03/19/2017 Constitutional No chills 03/19/2017 Constitutional No diaphoresis 03/19/2017 Constitutional fatigue 03/19/2017 Constitutional No fever 03/19/2017 Constitutional malaise 03/19/2017 Eyes No eye discharge 03/19/2017 Eyes No eye erythema 03/19/2017 Ears/Nose/Throat/Neck No nasal allergies 03/19/2017 Ears/Nose/Throat/Neck No nasal discharge 03/19/2017 Cardiovascular No chest pain/pressure Cardiovascular No dyspnea 03/19/2017 Respiratory No cough 03/19/2017 Respiratory No dyspnea 03/19/2017 Gastrointestinal No abdominal pain 2016 Gastrointestinal No constipation 2016 Gastrointestinal No diarrhea 03/19/2017 Musculoskeletal No joint complaint 2016 Dermatologic No rash 03/19/2017 Neurologic No alteration of consciousness 03/19/2017 Neurologic No mental status change 2016 Psychiatric anxiety 03/19/2017 Psychiatric depression 03/19/2017 Genitourinary/Nephrology dysuria 2016 Constitutional No recent illness 2016 Constitutional No chills 03/08/2017 Constitutional No diaphoresis 03/08/2017 Constitutional No fever 03/08/2017 Eyes No eye erythema 03/08/2017 Ears/Nose/Throat/Neck No nasal allergies 03/08/2017 Ears/Nose/Throat/Neck No nasal discharge 03/08/2017 Cardiovascular No chest pain/pressure 07/2016 Respiratory No cough 03/08/2017 Respiratory No chest congestion 2016 Gastrointestinal abdominal pain 2016 Gastrointestinal No constipation 2016 Gastrointestinal No diarrhea 03/08/2017 Gastrointestinal No vomiting 03/08/2017 Gastrointestinal No nausea 03/08/2017 Musculoskeletal No joint complaint 2016 Neurologic No alteration of consciousness 03/08/2017 Neurologic No mental status change 2016 Constitutional recent illness 02/02/2017 Constitutional No chills 02/02/2017 Constitutional No diaphoresis 02/02/2017 Constitutional fatigue 02/02/2017 Constitutional No fever 02/02/2017 Constitutional No malaise 02/02/2017 Eyes No eye discharge 02/02/2017 Eyes No eye erythema 02/02/2017 Ears/Nose/Throat/Neck No nasal discharge 02/02/2017 Cardiovascular No chest pain/pressure Cardiovascular No dyspnea 02/02/2017 Respiratory No cough 02/02/2017 Respiratory No dyspnea 02/02/2017 Gastrointestinal No abdominal pain 2016 Gastrointestinal No constipation 2016 Gastrointestinal No diarrhea 02/02/2017 Musculoskeletal No joint complaint 2016 Dermatologic No rash 02/02/2017 Neurologic No alteration of consciousness 02/02/2017 Neurologic No mental status change 2016 Psychiatric anxiety 02/02/2017 Psychiatric depression 02/02/2017 Ears/Nose/Throat/Neck No nasal allergies 02/02/2017 Constitutional recent illness 01/15/2017 Constitutional No chills 01/15/2017 Constitutional No diaphoresis 01/15/2017 Constitutional fatigue 01/15/2017 Constitutional No fever 01/15/2017 Constitutional No malaise 01/15/2017 Eyes No eye discharge 01/15/2017 Eyes No eye erythema 01/15/2017 Ears/Nose/Throat/Neck No headache 2016 Cardiovascular No dyspnea 01/15/2017 Respiratory No cough 01/15/2017 Gastrointestinal No abdominal pain 2016 Gastrointestinal No constipation 2016 Gastrointestinal No diarrhea 01/15/2017 Musculoskeletal No joint complaint 2016 Musculoskeletal muscle weakness 2016 Dermatologic No rash 01/15/2017 Neurologic No alteration of consciousness 01/15/2017 Psychiatric depression 01/15/2017 Constitutional No anorexia 01/15/2017 Ears/Nose/Throat/Neck No nasal discharge 01/15/2017 Cardiovascular No chest pain/pressure Respiratory No dyspnea 01/15/2017 Neurologic No mental status change 2016 Psychiatric anxiety 01/15/2017 Constitutional recent illness 12/30/2016 Constitutional No chills 12/30/2016 Constitutional No diaphoresis 12/30/2016 Constitutional fatigue 12/30/2016 Constitutional No fever 12/30/2016 Eyes No eye discharge 12/30/2016 Eyes No eye erythema 12/30/2016 Cardiovascular No dyspnea 12/30/2016 Respiratory No cough 12/30/2016 Gastrointestinal No abdominal pain 2016 Gastrointestinal No constipation 2016 Gastrointestinal No diarrhea 12/30/2016 Musculoskeletal No joint complaint 2016 Musculoskeletal muscle weakness 2016 Neurologic No alteration of consciousness 12/30/2016 Constitutional malaise 12/30/2016 Ears/Nose/Throat/Neck No nasal discharge 12/30/2016 Ears/Nose/Throat/Neck No nasal allergies 12/30/2016 Cardiovascular No chest pain/pressure Respiratory No dyspnea 12/30/2016 Dermatologic rash 12/30/2016 Neurologic No mental status change 2016 Constitutional No recent illness 2016 Constitutional No chills 12/22/2016 Constitutional No diaphoresis 12/22/2016 Constitutional No fatigue 12/22/2016 Constitutional No fever 12/22/2016 Eyes No eye erythema 12/22/2016 Ears/Nose/Throat/Neck No nasal discharge 12/22/2016 Cardiovascular edema 12/22/2016 Respiratory No cough 12/22/2016 Respiratory No dyspnea 12/22/2016 Dermatologic No rash 12/22/2016 Neurologic No alteration of consciousness 12/22/2016 Neurologic No mental status change 2016 Genitourinary/Nephrology dysuria 2016 Genitourinary/Nephrology urinary urgency 12/22/2016 Genitourinary/Nephrology urinary frequency 12/22/2016 Constitutional No recent illness 2016 Constitutional No chills 12/18/2016 Constitutional No diaphoresis 12/18/2016 Constitutional No fatigue 12/18/2016 Constitutional No fever 12/18/2016 Cardiovascular No edema 12/18/2016 Genitourinary/Nephrology No dysuria 12/18 Dermatologic No rash 12/18/2016 Eyes No eye erythema 12/18/2016 Ears/Nose/Throat/Neck No nasal discharge 12/18/2016 Respiratory No cough 12/18/2016 Respiratory No dyspnea 12/18/2016 Neurologic No alteration of consciousness 12/18/2016 Neurologic No mental status change 2016 Constitutional No recent illness 2016 Constitutional No anorexia 11/20/2016 Constitutional No night sweats 2016 Constitutional No chills 11/20/2016 Constitutional No diaphoresis 11/20/2016 Constitutional No fatigue 11/20/2016 Constitutional No fever 11/20/2016 Constitutional No insomnia 11/20/2016 Constitutional No weight loss 11/20/2016 Constitutional No weight gain 11/20/2016 Constitutional No malaise 11/20/2016 Genitourinary/Nephrology No dysuria 11/20 Cardiovascular No edema 11/20/2016 Dermatologic No rash 11/20/2016 Constitutional recent illness 11/16/2016 Constitutional No chills 11/16/2016 Constitutional No diaphoresis 11/16/2016 Constitutional No fever 11/16/2016 Eyes No eye erythema 11/16/2016 Ears/Nose/Throat/Neck No nasal discharge 11/16/2016 Ears/Nose/Throat/Neck No nasal allergies 11/16/2016 Cardiovascular No chest pain/pressure Cardiovascular No dyspnea 11/16/2016 Respiratory No cough 11/16/2016 Respiratory No dyspnea 11/16/2016 Gastrointestinal No abdominal pain 2016 Genitourinary/Nephrology dysuria 2016 Genitourinary/Nephrology polyuria 2016 Dermatologic No rash 11/16/2016 Neurologic No alteration of consciousness 11/16/2016 Neurologic No mental status change 2016 Constitutional recent illness 10/28/2016 Constitutional No anorexia 10/28/2016 Constitutional No night sweats 2016 Constitutional No chills 10/28/2016 Constitutional No diaphoresis 10/28/2016 Constitutional fatigue 10/28/2016 Constitutional No fever 10/28/2016 Constitutional insomnia 10/28/2016 Constitutional No malaise 10/28/2016 Eyes No eye discharge 10/28/2016 Eyes No eye erythema 10/28/2016 Ears/Nose/Throat/Neck No dizziness 2016 Ears/Nose/Throat/Neck No headache 2016 Cardiovascular No dyspnea 10/28/2016 Respiratory No productive sputum 2016 Respiratory No cough 10/28/2016 Gastrointestinal No abdominal pain 2016 Gastrointestinal No constipation 2016 Gastrointestinal No diarrhea 10/28/2016 Musculoskeletal No joint complaint 2016 Musculoskeletal muscle weakness 2016 Dermatologic No rash 10/28/2016 Neurologic No alteration of consciousness 10/28/2016 Psychiatric depression 10/28/2016 Constitutional recent illness 10/13/2016 Constitutional No anorexia 10/13/2016 Constitutional No night sweats 2016 Constitutional No chills 10/13/2016 Constitutional No diaphoresis 10/13/2016 Constitutional fatigue 10/13/2016 Constitutional No fever 10/13/2016 Constitutional insomnia 10/13/2016 Constitutional No malaise 10/13/2016 Eyes No eye discharge 10/13/2016 Eyes No eye erythema 10/13/2016 Ears/Nose/Throat/Neck No dizziness 2016 Ears/Nose/Throat/Neck No headache 2016 Cardiovascular No dyspnea 10/13/2016 Respiratory No productive sputum 2016 Respiratory No cough 10/13/2016 Gastrointestinal No abdominal pain 2016 Gastrointestinal No constipation 2016 Gastrointestinal No diarrhea 10/13/2016 Musculoskeletal No joint complaint 2016 Dermatologic No rash 10/13/2016 Neurologic No alteration of consciousness 10/13/2016 Psychiatric depression 10/13/2016 Gastrointestinal dyspepsia 10/13/2016 Genitourinary/Nephrology No dysuria 10/13 Genitourinary/Nephrology No urinary frequency 10/13/2016 Genitourinary/Nephrology No urinary urgency 10/13/2016 Psychiatric anxiety 10/13/2016 Constitutional No recent illness 2016 Constitutional No anorexia 10/08/2016 Constitutional No night sweats 2016 Constitutional No chills 10/08/2016 Constitutional No diaphoresis 10/08/2016 Constitutional No fever 10/08/2016 Constitutional fatigue 10/08/2016 Constitutional No insomnia 10/08/2016 Constitutional No malaise 10/08/2016 Constitutional No weight gain 10/08/2016 Constitutional No weight loss 10/08/2016 Dermatologic rash 10/08/2016 Constitutional recent illness 09/29/2016 Constitutional No anorexia 09/29/2016 Constitutional No night sweats 2016 Constitutional No chills 09/29/2016 Constitutional No diaphoresis 09/29/2016 Constitutional fatigue 09/29/2016 Constitutional No fever 09/29/2016 Constitutional insomnia 09/29/2016 Constitutional No malaise 09/29/2016 Eyes No eye discharge 09/29/2016 Eyes No eye erythema 09/29/2016 Ears/Nose/Throat/Neck No dizziness 2016 Ears/Nose/Throat/Neck No headache 2016 Cardiovascular No dyspnea 09/29/2016 Respiratory No productive sputum 2016 Respiratory No cough 09/29/2016 Gastrointestinal No abdominal pain 2016 Gastrointestinal No constipation 2016 Gastrointestinal No diarrhea 09/29/2016 Musculoskeletal No joint complaint 2016 Musculoskeletal muscle weakness 2016 Dermatologic No rash 09/29/2016 Neurologic No alteration of consciousness 09/29/2016 Psychiatric depression 09/29/2016 Constitutional recent illness 09/03/2016 Constitutional No anorexia 09/03/2016 Constitutional No night sweats 2016 Constitutional No chills 09/03/2016 Constitutional No diaphoresis 09/03/2016 Constitutional fatigue 09/03/2016 Constitutional No fever 09/03/2016 Constitutional insomnia 09/03/2016 Constitutional No malaise 09/03/2016 Eyes No eye discharge 09/03/2016 Eyes No eye erythema 09/03/2016 Ears/Nose/Throat/Neck No dizziness 2016 Ears/Nose/Throat/Neck No headache 2016 Cardiovascular No dyspnea 09/03/2016 Respiratory No productive sputum 2016 Respiratory No cough 09/03/2016 Gastrointestinal No abdominal pain 2016 Gastrointestinal No constipation 2016 Gastrointestinal No diarrhea 09/03/2016 Genitourinary/Nephrology dysuria 2016 Musculoskeletal No joint complaint 2016 Musculoskeletal muscle weakness 2016 Dermatologic No rash 09/03/2016 Neurologic No alteration of consciousness 09/03/2016 Psychiatric depression 09/03/2016 Constitutional recent illness 08/24/2016 Constitutional No chills 08/24/2016 Constitutional No diaphoresis 08/24/2016 Constitutional fatigue 08/24/2016 Constitutional No fever 08/24/2016 Constitutional insomnia 08/24/2016 Eyes No blindness 08/24/2016 Eyes No eye pain 08/24/2016 Eyes No vision change 08/24/2016 Ears/Nose/Throat/Neck No nasal allergies 08/24/2016 Cardiovascular No chest pain/pressure Cardiovascular No dyspnea 08/24/2016 Respiratory No chest congestion 2016 Respiratory No cough 08/24/2016 Gastrointestinal No constipation 2016 Gastrointestinal No diarrhea 08/24/2016 Gastrointestinal No nausea 08/24/2016 Gastrointestinal No vomiting 08/24/2016 Genitourinary/Nephrology dysuria 2016 Genitourinary/Nephrology urinary frequency 08/24/2016 Genitourinary/Nephrology urinary incontinence 08/24/2016 Dermatologic No rash 08/24/2016 Neurologic No alteration of consciousness 08/24/2016 Neurologic No mental status change 2016 Psychiatric anxiety 08/24/2016 Psychiatric depression 08/24/2016 Constitutional recent illness 08/11/2016 Constitutional No chills 08/11/2016 Constitutional No diaphoresis 08/11/2016 Constitutional fatigue 08/11/2016 Constitutional No fever 08/11/2016 Eyes No eye pain 08/11/2016 Eyes No vision change 08/11/2016 Cardiovascular No chest pain/pressure 12/2016 Cardiovascular No dyspnea 08/11/2016 Respiratory No chest congestion 2016 Respiratory No cough 08/11/2016 Gastrointestinal abdominal pain 2016 Gastrointestinal No nausea 08/11/2016 Gastrointestinal No vomiting 08/11/2016 Genitourinary/Nephrology No anuria/oliguria 08/11/2016 Genitourinary/Nephrology dysuria 2016 Genitourinary/Nephrology urinary frequency 08/11/2016 Genitourinary/Nephrology urinary incontinence 08/11/2016 Neurologic No alteration of consciousness 08/11/2016 Psychiatric anxiety 08/11/2016 Psychiatric depression 08/11/2016 Constitutional malaise 08/11/2016 Ears/Nose/Throat/Neck No nasal allergies 08/11/2016 Ears/Nose/Throat/Neck No nasal discharge 08/11/2016 Respiratory No dyspnea 08/11/2016 Gastrointestinal No constipation 2016 Gastrointestinal No diarrhea 08/11/2016 Musculoskeletal No joint complaint 2016 Neurologic No mental status change 2016 Constitutional recent illness 08/03/2016 Constitutional No chills 08/03/2016 Constitutional No diaphoresis 08/03/2016 Constitutional fatigue 08/03/2016 Constitutional No night sweats 2016 Constitutional No fever 08/03/2016 Constitutional insomnia 08/03/2016 Gastrointestinal abdominal pain 2016 Gastrointestinal No constipation 2016 Gastrointestinal No diarrhea 08/03/2016 Gastrointestinal No nausea 08/03/2016 Gastrointestinal No vomiting 08/03/2016 Genitourinary/Nephrology dysuria 2016 Genitourinary/Nephrology No anuria/oliguria 08/03/2016 Gastrointestinal No anorexia 08/03/2016 Genitourinary/Nephrology urinary incontinence 08/03/2016 Genitourinary/Nephrology urinary frequency 08/03/2016 Musculoskeletal No stiffness 08/03/2016 Musculoskeletal No swelling 08/03/2016 Musculoskeletal No arthralgia(s) 2016 Musculoskeletal No back pain 08/03/2016 Musculoskeletal No bone fracture 2016 Dermatologic No sores 08/03/2016 Dermatologic No rash 08/03/2016 Respiratory No chest tightness 2016 Respiratory No cough 08/03/2016 Respiratory No chest congestion 2016 Cardiovascular No chest pain/pressure 04/2016 Cardiovascular No dyspnea 08/03/2016 Cardiovascular No fatigue 08/03/2016 Neurologic No alteration of consciousness 08/03/2016 Neurologic No dizziness 08/03/2016 Psychiatric anxiety 08/03/2016 Psychiatric depression 08/03/2016 Endocrine No polyuria 08/03/2016 Endocrine No weakness 08/03/2016 Hematologic/Lymphatic No abnormal ecchymoses 08/03/2016 Hematologic/Lymphatic No abnormal bleeding and bruising 08/03/2016 Eyes No eye pain 08/03/2016 Eyes No vision change 08/03/2016 Ears/Nose/Throat/Neck No dizziness 2016 Ears/Nose/Throat/Neck No headache 2016 Constitutional recent illness 07/27/2016 Constitutional No chills 07/27/2016 Constitutional No diaphoresis 07/27/2016 Constitutional fatigue 07/27/2016 Constitutional No fever 07/27/2016 Constitutional insomnia 07/27/2016 Eyes No eye pain 07/27/2016 Eyes No vision change 07/27/2016 Cardiovascular No chest pain/pressure Cardiovascular No dyspnea 07/27/2016 Respiratory No chest congestion 2016 Respiratory No cough 07/27/2016 Gastrointestinal No constipation 2016 Gastrointestinal No diarrhea 07/27/2016 Gastrointestinal No nausea 07/27/2016 Gastrointestinal No vomiting 07/27/2016 Genitourinary/Nephrology dysuria 2016 Genitourinary/Nephrology urinary frequency 07/27/2016 Genitourinary/Nephrology urinary incontinence 07/27/2016 Dermatologic No rash 07/27/2016 Neurologic No alteration of consciousness 07/27/2016 Psychiatric anxiety 07/27/2016 Psychiatric depression 07/27/2016 Eyes No eye erythema 07/27/2016 Ears/Nose/Throat/Neck No nasal allergies 07/27/2016 Neurologic No mental status change 2016 Gastrointestinal gastroesophageal reflux 07/21/2016 Gastrointestinal No constipation 2016 Gastrointestinal No diarrhea 07/21/2016 Gastrointestinal nausea 07/21/2016 Constitutional recent illness 07/21/2016 Constitutional No anorexia 07/21/2016 Constitutional No night sweats 2016 Constitutional No chills 07/21/2016 Constitutional No diaphoresis 07/21/2016 Constitutional No fatigue 07/21/2016 Constitutional No fever 07/21/2016 Constitutional No insomnia 07/21/2016 Constitutional No malaise 07/21/2016 Constitutional No weight loss 07/21/2016 Constitutional No weight gain 07/21/2016 Eyes No eye discharge 07/21/2016 Eyes No eye erythema 07/21/2016 Ears/Nose/Throat/Neck No dizziness 2016 Ears/Nose/Throat/Neck No headache 2016 Cardiovascular No chest pain/pressure Cardiovascular No dyspnea 07/21/2016 Cardiovascular No edema 07/21/2016 Respiratory No cough 07/21/2016 Genitourinary/Nephrology dysuria 2016 Musculoskeletal No joint complaint 2016 Dermatologic No rash 07/21/2016 Ears/Nose/Throat/Neck nasal allergies Constitutional No recent illness 2016 Constitutional No anorexia 07/14/2016 Constitutional No night sweats 2016 Constitutional No chills 07/14/2016 Constitutional No diaphoresis 07/14/2016 Constitutional No fatigue 07/14/2016 Constitutional No fever 07/14/2016 Constitutional No insomnia 07/14/2016 Constitutional No weight loss 07/14/2016 Constitutional No malaise 07/14/2016 Constitutional No weight gain 07/14/2016 Ears/Nose/Throat/Neck No dizziness 2016 Ears/Nose/Throat/Neck No headache 2016 Ears/Nose/Throat/Neck No sinus congestion 07/14/2016 Ears/Nose/Throat/Neck sore throat 2016 Cardiovascular No chest pain/pressure 02/2017 Eyes No eye discharge 07/14/2016 Eyes No eye erythema 07/14/2016 Respiratory No cough 07/14/2016 Gastrointestinal No abdominal pain 2016 Genitourinary/Nephrology No dysuria 07/14 Musculoskeletal No joint complaint 2016 Dermatologic No rash 07/14/2016 Neurologic No alteration of consciousness 07/14/2016 Psychiatric anxiety 07/14/2016 Endocrine No dry or coarse skin 2016 Constitutional No recent illness 2016 Constitutional No anorexia 07/10/2016 Constitutional No night sweats 2016 Constitutional No chills 07/10/2016 Constitutional No diaphoresis 07/10/2016 Constitutional fatigue 07/10/2016 Constitutional No fever 07/10/2016 Constitutional No insomnia 07/10/2016 Constitutional No malaise 07/10/2016 Constitutional No weight loss 07/10/2016 Constitutional No weight gain 07/10/2016 Constitutional No obesity 07/10/2016 Eyes No eye pain 07/10/2016 Eyes No vision change 07/10/2016 Ears/Nose/Throat/Neck No dizziness 2016 Ears/Nose/Throat/Neck No headache 2016 Cardiovascular No dyspnea 07/10/2016 Cardiovascular No palpitations 2016 Respiratory No cough 07/10/2016 Respiratory No dyspnea 07/10/2016 Gastrointestinal No diarrhea 07/10/2016 Gastrointestinal No constipation 2016 Genitourinary/Nephrology No anuria/oliguria 07/10/2016 Genitourinary/Nephrology No dysuria 07/10 Musculoskeletal No stiffness 07/10/2016 Musculoskeletal No swelling 07/10/2016 Musculoskeletal No arthralgia(s) 2016 Dermatologic No rash 07/10/2016 Dermatologic No sores 07/10/2016 Genitourinary/Nephrology pelvic pain 10/2016 Genitourinary/Nephrology No vaginal discharge 07/10/2016 Genitourinary/Nephrology No urinary incontinence 07/10/2016 Genitourinary/Nephrology No urinary urgency 07/10/2016 Genitourinary/Nephrology No polyuria 10/2016 Respiratory No chest congestion 2016 Gastrointestinal No abdominal pain 2016 Gastrointestinal No nausea 07/10/2016 Gastrointestinal No vomiting 07/10/2016 Neurologic No dizziness 07/10/2016 Neurologic No headache 07/10/2016 Neurologic weakness 07/10/2016 Psychiatric depression 07/10/2016 Psychiatric anxiety 07/10/2016 Hematologic/Lymphatic No abnormal ecchymoses 07/10/2016 Hematologic/Lymphatic No abnormal bleeding and bruising 07/10/2016 Endocrine No polydipsia 07/10/2016 Endocrine No polyuria 07/10/2016 Constitutional recent illness 07/03/2016 Constitutional No anorexia 07/03/2016 Constitutional No night sweats 2016 Constitutional No chills 07/03/2016 Constitutional No diaphoresis 07/03/2016 Constitutional fatigue 07/03/2016 Constitutional No fever 07/03/2016 Constitutional insomnia 07/03/2016 Constitutional No malaise 07/03/2016 Constitutional No weight loss 07/03/2016 Constitutional No weight gain 07/03/2016 Eyes No eye discharge 07/03/2016 Eyes No eye erythema 07/03/2016 Ears/Nose/Throat/Neck No dizziness 2016 Ears/Nose/Throat/Neck No headache 2016 Cardiovascular No dyspnea 07/03/2016 Respiratory No productive sputum 2016 Respiratory No cough 07/03/2016 Gastrointestinal No abdominal pain 2016 Gastrointestinal No constipation 2016 Gastrointestinal No diarrhea 07/03/2016 Genitourinary/Nephrology dysuria 2016 Musculoskeletal No joint complaint 2016 Dermatologic No rash 07/03/2016 Neurologic No alteration of consciousness 07/03/2016 Psychiatric depression 07/03/2016 Musculoskeletal muscle weakness 2016 Constitutional recent illness 06/30/2016 Constitutional No chills 06/30/2016 Constitutional No diaphoresis 06/30/2016 Constitutional fatigue 06/30/2016 Constitutional No fever 06/30/2016 Eyes No eye discharge 06/30/2016 Eyes No eye erythema 06/30/2016 Gastrointestinal No abdominal pain 2016 Gastrointestinal No constipation 2016 Gastrointestinal No diarrhea 06/30/2016 Genitourinary/Nephrology dysuria 2016 Musculoskeletal No joint complaint 2016 Musculoskeletal muscle weakness 2016 Dermatologic No rash 06/30/2016 Neurologic No alteration of consciousness 06/30/2016 Psychiatric depression 06/30/2016 Constitutional malaise 06/30/2016 Ears/Nose/Throat/Neck No nasal discharge 06/30/2016 Cardiovascular No chest pain/pressure Respiratory No dyspnea 06/30/2016 Psychiatric anxiety 06/30/2016 Constitutional recent illness 06/23/2016 Constitutional No anorexia 06/23/2016 Constitutional No night sweats 2016 Constitutional No chills 06/23/2016 Constitutional No diaphoresis 06/23/2016 Constitutional fatigue 06/23/2016 Constitutional No fever 06/23/2016 Constitutional insomnia 06/23/2016 Constitutional No malaise 06/23/2016 Constitutional No weight loss 06/23/2016 Constitutional No weight gain 06/23/2016 Eyes No eye discharge 06/23/2016 Eyes No eye erythema 06/23/2016 Ears/Nose/Throat/Neck No dizziness 2016 Ears/Nose/Throat/Neck No headache 2016 Cardiovascular No dyspnea 06/23/2016 Respiratory No productive sputum 2016 Respiratory No cough 06/23/2016 Gastrointestinal No abdominal pain 2016 Gastrointestinal No constipation 2016 Gastrointestinal No diarrhea 06/23/2016 Genitourinary/Nephrology No dysuria 06/23 Musculoskeletal No joint complaint 2016 Dermatologic No rash 06/23/2016 Neurologic No alteration of consciousness 06/23/2016 Psychiatric No anxiety 06/23/2016 Psychiatric No depression 06/23/2016 Constitutional recent illness 06/15/2016 Constitutional No fever 06/15/2016 Eyes No eye erythema 06/15/2016 Ears/Nose/Throat/Neck No nasal allergies 06/15/2016 Ears/Nose/Throat/Neck No nasal discharge 06/15/2016 Ears/Nose/Throat/Neck oral lesion 2016 Ears/Nose/Throat/Neck oral pain 2016 Cardiovascular No chest pain/pressure Respiratory No dyspnea 06/15/2016 Gastrointestinal No abdominal pain 2016 Gastrointestinal No constipation 2016 Gastrointestinal No diarrhea 06/15/2016 Gastrointestinal nausea 06/15/2016 Gastrointestinal No vomiting 06/15/2016 Neurologic No alteration of consciousness 06/15/2016 Neurologic No mental status change 2016 Gastrointestinal gastroesophageal reflux 06/15/2016 Gastrointestinal dyspepsia 06/15/2016 Constitutional recent illness 06/05/2016 Constitutional No anorexia 06/05/2016 Constitutional No night sweats 2016 Constitutional No chills 06/05/2016 Constitutional No diaphoresis 06/05/2016 Constitutional fatigue 06/05/2016 Constitutional No fever 06/05/2016 Constitutional insomnia 06/05/2016 Constitutional No malaise 06/05/2016 Constitutional No weight loss 06/05/2016 Constitutional No weight gain 06/05/2016 Eyes No eye erythema 06/05/2016 Eyes No eye discharge 06/05/2016 Ears/Nose/Throat/Neck No dizziness 2016 Ears/Nose/Throat/Neck No headache 2016 Cardiovascular No dyspnea 06/05/2016 Respiratory No productive sputum 2016 Respiratory No cough 06/05/2016 Gastrointestinal No abdominal pain 2016 Gastrointestinal No constipation 2016 Gastrointestinal No diarrhea 06/05/2016 Genitourinary/Nephrology No dysuria 06/05 Musculoskeletal No joint complaint 2016 Dermatologic No rash 06/05/2016 Neurologic No alteration of consciousness 06/05/2016 Constitutional No recent illness 2016 Constitutional No anorexia 06/01/2016 Constitutional No night sweats 2016 Constitutional No chills 06/01/2016 Constitutional No diaphoresis 06/01/2016 Constitutional No fatigue 06/01/2016 Constitutional No fever 06/01/2016 Constitutional No insomnia 06/01/2016 Constitutional No malaise 06/01/2016 Constitutional No weight loss 06/01/2016 Constitutional No weight gain 06/01/2016 Constitutional No obesity 06/01/2016 Eyes No eye pain 06/01/2016 Eyes No vision change 06/01/2016 Ears/Nose/Throat/Neck No dizziness 2016 Ears/Nose/Throat/Neck No headache 2016 Cardiovascular No dyspnea 06/01/2016 Cardiovascular No chest pain/pressure Respiratory No cigarette smoking 2016 Respiratory No cough 06/01/2016 Respiratory No dyspnea 06/01/2016 Gastrointestinal No constipation 2016 Gastrointestinal diarrhea 06/01/2016 Gastrointestinal No nausea 06/01/2016 Gastrointestinal No abdominal pain 2016 Gastrointestinal No vomiting 06/01/2016 Genitourinary/Nephrology dysuria 2016 Genitourinary/Nephrology No vaginal discharge 06/01/2016 Genitourinary/Nephrology No urinary incontinence 06/01/2016 Genitourinary/Nephrology urinary frequency 06/01/2016 Genitourinary/Nephrology urinary urgency 06/01/2016 Musculoskeletal No stiffness 06/01/2016 Musculoskeletal No swelling 06/01/2016 Musculoskeletal No arthralgia(s) 2016 Dermatologic No rash 06/01/2016 Dermatologic No sores 06/01/2016 Neurologic No alteration of consciousness 06/01/2016 Neurologic No mental status change 2016 Psychiatric No anxiety 06/01/2016 Psychiatric No depression 06/01/2016 Endocrine No hair loss 06/01/2016 Endocrine No dry or coarse skin 2016 Hematologic/Lymphatic No abnormal ecchymoses 06/01/2016 Hematologic/Lymphatic No abnormal bleeding and bruising 06/01/2016 Constitutional No recent illness 2016 Constitutional No anorexia 05/28/2016 Constitutional No night sweats 2016 Constitutional No chills 05/28/2016 Constitutional No diaphoresis 05/28/2016 Constitutional fatigue 05/28/2016 Constitutional No fever 05/28/2016 Constitutional insomnia 05/28/2016 Constitutional No malaise 05/28/2016 Constitutional No weight loss 05/28/2016 Constitutional No weight gain 05/28/2016 Eyes No eye discharge 05/28/2016 Eyes No eye erythema 05/28/2016 Ears/Nose/Throat/Neck No dizziness 2016 Ears/Nose/Throat/Neck No headache 2016 Cardiovascular No dyspnea 05/28/2016 Respiratory No productive sputum 2016 Respiratory No cough 05/28/2016 Gastrointestinal No abdominal pain 2016 Gastrointestinal No constipation 2016 Gastrointestinal No diarrhea 05/28/2016 Genitourinary/Nephrology No dysuria 05/28 Musculoskeletal No joint complaint 2016 Dermatologic No rash 05/28/2016 Neurologic No alteration of consciousness 05/28/2016 Constitutional No recent illness 2016 Constitutional No anorexia 05/11/2016 Constitutional No night sweats 2016 Constitutional No chills 05/11/2016 Constitutional No diaphoresis 05/11/2016 Constitutional No fatigue 05/11/2016 Constitutional No fever 05/11/2016 Constitutional No insomnia 05/11/2016 Constitutional No malaise 05/11/2016 Constitutional No weight loss 05/11/2016 Constitutional No weight gain 05/11/2016 Constitutional No obesity 05/11/2016 Eyes No eye pain 05/11/2016 Eyes No vision change 05/11/2016 Ears/Nose/Throat/Neck No dizziness 2016 Ears/Nose/Throat/Neck No headache 2016 Cardiovascular No dyspnea 05/11/2016 Cardiovascular No chest pain/pressure 09/2016 Respiratory No chest tightness 2016 Respiratory No cigarette smoking 2016 Respiratory No cough 05/11/2016 Respiratory No chest congestion 2016 Gastrointestinal No constipation 2016 Gastrointestinal No diarrhea 05/11/2016 Gastrointestinal No abdominal pain 2016 Gastrointestinal No nausea 05/11/2016 Genitourinary/Nephrology No dysuria 05/11 Genitourinary/Nephrology No anuria/oliguria 05/11/2016 Musculoskeletal No stiffness 05/11/2016 Musculoskeletal No swelling 05/11/2016 Musculoskeletal No arthralgia(s) 2016 Musculoskeletal No back pain 05/11/2016 Musculoskeletal No joint complaint 2016 Dermatologic No rash 05/11/2016 Dermatologic No sores 05/11/2016 Neurologic No dizziness 05/11/2016 Neurologic No pain, back 05/11/2016 Neurologic No pain, facial 05/11/2016 Psychiatric No anxiety 05/11/2016 Psychiatric No depression 05/11/2016 Endocrine No polydipsia 05/11/2016 Endocrine No polyuria 05/11/2016 Hematologic/Lymphatic No abnormal ecchymoses 05/11/2016 Hematologic/Lymphatic No abnormal bleeding and bruising 05/11/2016 Constitutional No recent illness 2016 Constitutional No chills 04/30/2016 Constitutional fatigue 04/30/2016 Constitutional No fever 04/30/2016 Constitutional No insomnia 04/30/2016 Constitutional No malaise 04/30/2016 Eyes No vision change 04/30/2016 Ears/Nose/Throat/Neck No dizziness 2016 Ears/Nose/Throat/Neck No dysphagia 2016 Ears/Nose/Throat/Neck No headache 2016 Ears/Nose/Throat/Neck hearing loss 2016 Ears/Nose/Throat/Neck No nasal allergies 04/30/2016 Cardiovascular No chest pain/pressure Cardiovascular No dyspnea 04/30/2016 Cardiovascular edema 04/30/2016 Cardiovascular fatigue 04/30/2016 Cardiovascular No near-syncope/dizziness 04/30/2016 Respiratory No chest tightness 2016 Respiratory No cough 04/30/2016 Respiratory No dyspnea 04/30/2016 Respiratory pedal edema 04/30/2016 Gastrointestinal No abdominal pain 2016 Gastrointestinal No constipation 2016 Gastrointestinal No diarrhea 04/30/2016 Gastrointestinal No gastroesophageal reflux 04/30/2016 Genitourinary/Nephrology No dysuria 04/30 Genitourinary/Nephrology No urinary incontinence 04/30/2016 Musculoskeletal No stiffness 04/30/2016 Musculoskeletal No swelling 04/30/2016 Musculoskeletal No muscle weakness 2016 Musculoskeletal No myalgias 04/30/2016 Dermatologic No rash 04/30/2016 Dermatologic No sores 04/30/2016 Neurologic No dizziness 04/30/2016 Neurologic No headache 04/30/2016 Neurologic No neck pain 04/30/2016 Neurologic No syncope 04/30/2016 Psychiatric No anxiety 04/30/2016 Psychiatric No depression 04/30/2016 Physical Exam Exam Name System Name Item Name Status Result Effective Dates Notes Full Exam - General 1994 Constitutional general appearance Overall: well developed 03/19/2017 None Full Exam - General 1994 Constitutional general appearance Overall: in no acute distress 03/19/2017 None Full Exam - General 1994 Constitutional general appearance Overall: well nourished 03/19/2017 None Full Exam - General 1994 Eyes conjunctiva /eyelids Overall: conjunctiva clear 03/19/2017 None Full Exam - General 1994 Eyes conjunctiva /eyelids Overall: cornea clear 03/19/2017 None Full Exam - General 1994 Eyes conjunctiva /eyelids Overall: eyelids normal 03/19/2017 None Full Exam - General 1994 Ears/Nose/Throat lips/teeth/gingiva Overall: benign lips 03/19/2017 None Full Exam - General 1994 Ears/Nose/Throat oral cavity/pharynx/larynx Overall: oral mucosa clear 03/19/2017 None Full Exam - General 1994 Respiratory auscultation Overall: breath sounds clear bilaterally 03/19/2017 None Full Exam - General 1994 Respiratory respiratory effort/rhythm Overall: no retractions 03/19/2017 None Full Exam - General 1994 Respiratory respiratory effort/rhythm Overall: normal rate 03/19/2017 None Full Exam - General 1994 Cardiovascular auscultation of heart Overall: regular rate 03/19/2017 None Full Exam - General 1994 Cardiovascular auscultation of heart Overall: normal heart sounds 03/19/2017 None Full Exam - General 1994 Abdomen abdominal exam Overall: no tenderness 03/19/2017 None Full Exam - General 1994 Abdomen abdominal exam Overall: normal bowel sounds 03/19/2017 None Full Exam - General 1994 Musculoskeletal head and neck Overall: head atraumatic 03/19/2017 None Full Exam - General 1994 Neurologic cranial nerves Overall: crainial nerves 2 - 12 grossly intact 03/19/2017 None Full Exam - General 1994 Psychiatric orientation/consciousness Overall: oriented to person, place and time 03/19/2017 None Full Exam - General 1994 Psychiatric mood and affect Overall: normal mood and affect 03/19/2017 None Full Exam - General 1994 Psychiatric appearance Overall: well-groomed, good eye contact 03/19/2017 None Full Exam - General 1994 Constitutional general appearance Overall: well developed 03/08/2017 None Full Exam - General 1994 Constitutional general appearance Overall: in no acute distress 03/08/2017 None Full Exam - General 1994 Constitutional general appearance Overall: well nourished 03/08/2017 None Full Exam - General 1994 Eyes conjunctiva /eyelids Overall: eyelids normal 03/08/2017 None Full Exam - General 1994 Eyes conjunctiva /eyelids Overall: cornea clear 03/08/2017 None Full Exam - General 1994 Eyes conjunctiva /eyelids Overall: conjunctiva clear 03/08/2017 None Full Exam - General 1994 Ears/Nose/Throat lips/teeth/gingiva Overall: benign lips 03/08/2017 None Full Exam - General 1994 Ears/Nose/Throat oral cavity/pharynx/larynx Overall: oral mucosa clear 03/08/2017 None Full Exam - General 1994 Respiratory respiratory effort/rhythm Overall: no retractions 03/08/2017 None Full Exam - General 1994 Respiratory respiratory effort/rhythm Overall: normal rate 03/08/2017 None Full Exam - General 1994 Respiratory auscultation Overall: breath sounds clear bilaterally 03/08/2017 None Full Exam - General 1994 Cardiovascular auscultation of heart Overall: normal heart sounds 03/08/2017 None Full Exam - General 1994 Cardiovascular auscultation of heart Overall: regular rate 03/08/2017 None Full Exam - General 1994 Abdomen abdominal exam Overall: normal bowel sounds 03/08/2017 None Full Exam - General 1994 Abdomen abdominal exam Overall: no tenderness 03/08/2017 None Full Exam - General 1994 Musculoskeletal head and neck Overall: head atraumatic 03/08/2017 None Full Exam - General 1994 Musculoskeletal gait and station Overall: normal station 03/08/2017 None Full Exam - General 1994 Musculoskeletal gait and station Overall: normal gait 03/08/2017 None Full Exam - General 1994 Neurologic cranial nerves Overall: crainial nerves 2 - 12 grossly intact 03/08/2017 None Full Exam - General 1994 Psychiatric orientation/consciousness Overall: oriented to person, place and time 03/08/2017 None Full Exam - General 1994 Psychiatric mood and affect Overall: normal mood and affect 03/08/2017 None Full Exam - General 1994 Psychiatric appearance Overall: well-groomed, good eye contact 03/08/2017 None Full Exam - General 1994 Constitutional general appearance Overall: well developed 02/02/2017 None Full Exam - General 1994 Constitutional general appearance Overall: in no acute distress 02/02/2017 None Full Exam - General 1994 Constitutional general appearance Overall: well nourished 02/02/2017 None Full Exam - General 1994 Eyes conjunctiva /eyelids Overall: conjunctiva clear 02/02/2017 None Full Exam - General 1994 Eyes conjunctiva /eyelids Overall: eyelids normal 02/02/2017 None Full Exam - General 1994 Ears/Nose/Throat lips/teeth/gingiva Overall: benign lips 02/02/2017 None Full Exam - General 1994 Ears/Nose/Throat oral cavity/pharynx/larynx Overall: oral mucosa clear 02/02/2017 None Full Exam - General 1994 Respiratory auscultation Overall: breath sounds clear bilaterally 02/02/2017 None Full Exam - General 1994 Respiratory respiratory effort/rhythm Overall: no retractions 02/02/2017 None Full Exam - General 1994 Respiratory respiratory effort/rhythm Overall: normal rate 02/02/2017 None Full Exam - General 1994 Cardiovascular auscultation of heart Overall: regular rate 02/02/2017 None Full Exam - General 1994 Cardiovascular auscultation of heart Overall: normal heart sounds 02/02/2017 None Full Exam - General 1994 Abdomen abdominal exam Overall: no tenderness 02/02/2017 None Full Exam - General 1994 Abdomen abdominal exam Overall: normal bowel sounds 02/02/2017 None Full Exam - General 1994 Musculoskeletal head and neck Overall: head atraumatic 02/02/2017 None Full Exam - General 1994 Psychiatric orientation/consciousness Overall: oriented to person, place and time 02/02/2017 None Full Exam - General 1994 Psychiatric mood and affect Overall: normal mood and affect 02/02/2017 None Full Exam - General 1994 Psychiatric appearance Overall: well-groomed, good eye contact 02/02/2017 None Full Exam - General 1994 Eyes conjunctiva /eyelids Overall: cornea clear 02/02/2017 None Full Exam - General 1994 Neurologic cranial nerves Overall: crainial nerves 2 - 12 grossly intact 02/02/2017 None Full Exam - General 1994 Ears/Nose/Throat oral cavity/pharynx/larynx Overall: oral mucosa clear 01/15/2017 None Full Exam - General 1994 Respiratory auscultation Overall: breath sounds clear bilaterally 01/15/2017 None Full Exam - General 1994 Respiratory respiratory effort/rhythm Overall: no retractions 01/15/2017 None Full Exam - General 1994 Respiratory respiratory effort/rhythm Overall: normal rate 01/15/2017 None Full Exam - General 1994 Cardiovascular auscultation of heart Overall: regular rate 01/15/2017 None Full Exam - General 1994 Cardiovascular auscultation of heart Overall: normal heart sounds 01/15/2017 None Full Exam - General 1994 Abdomen abdominal exam Overall: no tenderness 01/15/2017 None Full Exam - General 1994 Abdomen abdominal exam Overall: normal bowel sounds 01/15/2017 None Full Exam - General 1994 Musculoskeletal head and neck Overall: head atraumatic 01/15/2017 None Full Exam - General 1994 Neurologic mental status Overall: alert 01/15/2017 None Full Exam - General 1994 Neurologic mental status Overall: oriented 01/15/2017 None Full Exam - General 1994 Neurologic motor Overall: normal bulk, tone 01/15/2017 None Full Exam - General 1994 Psychiatric mood and affect Overall: normal mood and affect 01/15/2017 None Full Exam - General 1994 Constitutional general appearance Overall: well developed 01/15/2017 None Full Exam - General 1994 Constitutional general appearance Overall: in no acute distress 01/15/2017 None Full Exam - General 1994 Constitutional general appearance Overall: well nourished 01/15/2017 None Full Exam - General 1994 Eyes conjunctiva /eyelids Overall: conjunctiva clear 01/15/2017 None Full Exam - General 1994 Eyes conjunctiva /eyelids Overall: eyelids normal 01/15/2017 None Full Exam - General 1994 Ears/Nose/Throat lips/teeth/gingiva Overall: benign lips 01/15/2017 None Full Exam - General 1994 Psychiatric orientation/consciousness Overall: oriented to person, place and time 01/15/2017 None Full Exam - General 1994 Psychiatric appearance Overall: well-groomed, good eye contact 01/15/2017 None Full Exam - General 1994 Eyes pupils and irises Overall: pupils equal, round, reactive to light and accomodation 12/30/2016 None Full Exam - General 1994 Ears/Nose/Throat oral cavity/pharynx/larynx Overall: oral mucosa clear 12/30/2016 None Full Exam - General 1994 Respiratory auscultation Overall: breath sounds clear bilaterally 12/30/2016 None Full Exam - General 1994 Respiratory respiratory effort/rhythm Overall: no retractions 12/30/2016 None Full Exam - General 1994 Respiratory respiratory effort/rhythm Overall: normal rate 12/30/2016 None Full Exam - General 1994 Cardiovascular auscultation of heart Overall: regular rate 12/30/2016 None Full Exam - General 1994 Cardiovascular auscultation of heart Overall: normal heart sounds 12/30/2016 None Full Exam - General 1994 Musculoskeletal head and neck Overall: head atraumatic 12/30/2016 None Full Exam - General 1994 Psychiatric mood and affect Overall: normal mood and affect 12/30/2016 None Full Exam - General 1994 Constitutional general appearance Overall: well developed 12/30/2016 None Full Exam - General 1994 Constitutional general appearance Overall: in no acute distress 12/30/2016 None Full Exam - General 1994 Constitutional general appearance Overall: well nourished 12/30/2016 None Full Exam - General 1994 Eyes conjunctiva /eyelids Overall: conjunctiva clear 12/30/2016 None Full Exam - General 1994 Eyes conjunctiva /eyelids Overall: eyelids normal 12/30/2016 None Full Exam - General 1994 Ears/Nose/Throat lips/teeth/gingiva Overall: benign lips 12/30/2016 None Full Exam - General 1994 Abdomen abdominal exam Overall: normal bowel sounds 12/30/2016 None Full Exam - General 1994 Abdomen abdominal exam Overall: no tenderness 12/30/2016 None Full Exam - General 1994 Musculoskeletal gait and station Overall: normal gait 12/30/2016 None Full Exam - General 1994 Musculoskeletal gait and station Overall: normal station 12/30/2016 None Full Exam - General 1994 Neurologic cranial nerves Overall: crainial nerves 2 - 12 grossly intact 12/30/2016 None Full Exam - General 1994 Psychiatric orientation/consciousness Overall: oriented to person, place and time 12/30/2016 None Full Exam - General 1994 Psychiatric appearance Overall: well-groomed, good eye contact 12/30/2016 None Full Exam - General 1994 Constitutional general appearance Overall: well developed 12/22/2016 None Full Exam - General 1994 Constitutional general appearance Overall: in no acute distress 12/22/2016 None Full Exam - General 1994 Constitutional general appearance Overall: well nourished 12/22/2016 None Full Exam - General 1994 Eyes conjunctiva /eyelids Overall: conjunctiva clear 12/22/2016 None Full Exam - General 1994 Eyes conjunctiva /eyelids Overall: eyelids normal 12/22/2016 None Full Exam - General 1994 Ears/Nose/Throat lips/teeth/gingiva Overall: benign lips 12/22/2016 None Full Exam - General 1994 Ears/Nose/Throat oral cavity/pharynx/larynx Overall: oral mucosa clear 12/22/2016 None Full Exam - General 1994 Respiratory respiratory effort/rhythm Overall: no retractions 12/22/2016 None Full Exam - General 1994 Respiratory respiratory effort/rhythm Overall: normal rate 12/22/2016 None Full Exam - General 1994 Cardiovascular extremities Other findings: varicose veins 12/22/2016 left lower leg Full Exam - General 1994 Musculoskeletal gait and station Overall: normal gait 12/22/2016 None Full Exam - General 1994 Musculoskeletal gait and station Overall: normal station 12/22/2016 None Full Exam - General 1994 Musculoskeletal head and neck Overall: head atraumatic 12/22/2016 None Full Exam - General 1994 Neurologic cranial nerves Overall: crainial nerves 2 - 12 grossly intact 12/22/2016 None Full Exam - General 1994 Psychiatric orientation/consciousness Overall: oriented to person, place and time 12/22/2016 None Full Exam - General 1994 Psychiatric mood and affect Overall: normal mood and affect 12/22/2016 None Full Exam - General 1994 Psychiatric appearance Overall: well-groomed, good eye contact 12/22/2016 None Full Exam - General 1994 Cardiovascular auscultation of heart Overall: regular rate 12/22/2016 None Full Exam - General 1994 Cardiovascular auscultation of heart Overall: normal heart sounds 12/22/2016 None Full Exam - General 1994 Respiratory auscultation Diffuse: diminished 12/22/2016 None Full Exam - General 1994 Ears/Nose/Throat oral cavity/pharynx/larynx Overall: oral mucosa clear 12/18/2016 None Full Exam - General 1994 Respiratory auscultation Overall: breath sounds clear bilaterally 12/18/2016 None Full Exam - General 1994 Respiratory respiratory effort/rhythm Overall: no retractions 12/18/2016 None Full Exam - General 1994 Respiratory respiratory effort/rhythm Overall: normal rate 12/18/2016 None Full Exam - General 1994 Cardiovascular extremities Other findings: varicose veins 12/18/2016 left lower leg Full Exam - General 1994 Cardiovascular auscultation of heart Overall: regular rate 12/18/2016 None Full Exam - General 1994 Cardiovascular auscultation of heart Overall: normal heart sounds 12/18/2016 None Full Exam - General 1994 Musculoskeletal head and neck Overall: head atraumatic 12/18/2016 None Full Exam - General 1994 Psychiatric mood and affect Overall: normal mood and affect 12/18/2016 None Full Exam - General 1994 Constitutional general appearance Overall: well developed 12/18/2016 None Full Exam - General 1994 Constitutional general appearance Overall: in no acute distress 12/18/2016 None Full Exam - General 1994 Constitutional general appearance Overall: well nourished 12/18/2016 None Full Exam - General 1994 Eyes conjunctiva /eyelids Overall: conjunctiva clear 12/18/2016 None Full Exam - General 1994 Eyes conjunctiva /eyelids Overall: eyelids normal 12/18/2016 None Full Exam - General 1994 Ears/Nose/Throat lips/teeth/gingiva Overall: benign lips 12/18/2016 None Full Exam - General 1994 Musculoskeletal gait and station Overall: normal gait 12/18/2016 None Full Exam - General 1994 Musculoskeletal gait and station Overall: normal station 12/18/2016 None Full Exam - General 1994 Neurologic cranial nerves Overall: crainial nerves 2 - 12 grossly intact 12/18/2016 None Full Exam - General 1994 Psychiatric orientation/consciousness Overall: oriented to person, place and time 12/18/2016 None Full Exam - General 1994 Psychiatric appearance Overall: well-groomed, good eye contact 12/18/2016 None Full Exam - General 1994 Constitutional general appearance Development: well developed 11/20/2016 None Full Exam - General 1994 Constitutional general appearance Development: appears stated age 0811/20/2016 None Full Exam - General 1994 Eyes pupils and irises Overall: pupils equal, round, reactive to light and accomodation 11/20/2016 None Full Exam - General 1994 Ears/Nose/Throat oral cavity/pharynx/larynx Overall: oral mucosa clear 11/20/2016 None Full Exam - General 1994 Respiratory auscultation Overall: breath sounds clear bilaterally 11/20/2016 None Full Exam - General 1994 Respiratory respiratory effort/rhythm Overall: no retractions 11/20/2016 None Full Exam - General 1994 Respiratory respiratory effort/rhythm Overall: normal rate 11/20/2016 None Full Exam - General 1994 Cardiovascular auscultation of heart Overall: regular rate 11/20/2016 None Full Exam - General 1994 Cardiovascular auscultation of heart Overall: normal heart sounds 11/20/2016 None Full Exam - General 1994 Cardiovascular auscultation of heart Overall: no murmurs 11/20/2016 None Full Exam - General 1994 Abdomen abdominal exam Overall: no tenderness 11/20/2016 None Full Exam - General 1994 Abdomen abdominal exam Overall: normal bowel sounds 11/20/2016 None Full Exam - General 1994 Musculoskeletal head and neck Overall: head atraumatic 11/20/2016 None Full Exam - General 1994 Musculoskeletal head and neck Overall: cervical spine benign 11/20/2016 None Full Exam - General 1994 Neurologic mental status Overall: alert 11/20/2016 None Full Exam - General 1994 Neurologic mental status Overall: oriented 11/20/2016 None Full Exam - General 1994 Neurologic motor Overall: normal bulk, tone 11/20/2016 None Full Exam - General 1994 Psychiatric mood and affect Overall: normal mood and affect 11/20/2016 None Full Exam - General 1994 Cardiovascular extremities Other findings: varicose veins 11/20/2016 left lower leg Full Exam - General 1994 Constitutional general appearance Overall: well developed 11/16/2016 None Full Exam - General 1994 Constitutional general appearance Overall: in no acute distress 11/16/2016 None Full Exam - General 1994 Constitutional general appearance Overall: well nourished 11/16/2016 None Full Exam - General 1994 Eyes conjunctiva /eyelids Overall: conjunctiva clear 11/16/2016 None Full Exam - General 1994 Eyes conjunctiva /eyelids Overall: eyelids normal 11/16/2016 None Full Exam - General 1994 Ears/Nose/Throat lips/teeth/gingiva Overall: benign lips 11/16/2016 None Full Exam - General 1994 Ears/Nose/Throat oral cavity/pharynx/larynx Overall: oral mucosa clear 11/16/2016 None Full Exam - General 1994 Respiratory respiratory effort/rhythm Overall: no retractions 11/16/2016 None Full Exam - General 1994 Respiratory respiratory effort/rhythm Overall: normal rate 11/16/2016 None Full Exam - General 1994 Respiratory auscultation Overall: breath sounds clear bilaterally 11/16/2016 None Full Exam - General 1994 Cardiovascular auscultation of heart Overall: regular rate 11/16/2016 None Full Exam - General 1994 Cardiovascular auscultation of heart Overall: normal heart sounds 11/16/2016 None Full Exam - General 1994 Abdomen abdominal exam Overall: normal bowel sounds 11/16/2016 None Full Exam - General 1994 Neurologic cranial nerves Overall: crainial nerves 2 - 12 grossly intact 11/16/2016 None Full Exam - General 1994 Psychiatric orientation/consciousness Overall: oriented to person, place and time 11/16/2016 None Full Exam - General 1994 Psychiatric mood and affect Overall: normal mood and affect 11/16/2016 None Full Exam - General 1994 Psychiatric appearance Overall: well-groomed, good eye contact 11/16/2016 None Full Exam - General 1994 Constitutional general appearance Development: well developed 10/28/2016 None Full Exam - General 1994 Constitutional general appearance Development: appears stated age 0710/28/2016 None Full Exam - General 1994 Eyes pupils and irises Overall: pupils equal, round, reactive to light and accomodation 10/28/2016 None Full Exam - General 1994 Ears/Nose/Throat oral cavity/pharynx/larynx Overall: oral mucosa clear 10/28/2016 None Full Exam - General 1994 Respiratory auscultation Overall: breath sounds clear bilaterally 10/28/2016 None Full Exam - General 1994 Respiratory respiratory effort/rhythm Overall: no retractions 10/28/2016 None Full Exam - General 1994 Respiratory respiratory effort/rhythm Overall: normal rate 10/28/2016 None Full Exam - General 1994 Cardiovascular auscultation of heart Overall: regular rate 10/28/2016 None Full Exam - General 1994 Cardiovascular auscultation of heart Overall: normal heart sounds 10/28/2016 None Full Exam - General 1994 Cardiovascular auscultation of heart Overall: no murmurs 10/28/2016 None Full Exam - General 1994 Abdomen abdominal exam Overall: no tenderness 10/28/2016 None Full Exam - General 1994 Abdomen abdominal exam Overall: normal bowel sounds 10/28/2016 None Full Exam - General 1994 Musculoskeletal head and neck Overall: head atraumatic 10/28/2016 None Full Exam - General 1994 Musculoskeletal head and neck Overall: cervical spine benign 10/28/2016 None Full Exam - General 1994 Neurologic mental status Overall: alert 10/28/2016 None Full Exam - General 1994 Neurologic mental status Overall: oriented 10/28/2016 None Full Exam - General 1994 Neurologic motor Overall: normal bulk, tone 10/28/2016 None Full Exam - General 1994 Psychiatric mood and affect Overall: normal mood and affect 10/28/2016 None Full Exam - General 1994 Constitutional general appearance Development: well developed 10/13/2016 None Full Exam - General 1994 Constitutional general appearance Development: appears stated age 0710/13/2016 None Full Exam - General 1994 Eyes pupils and irises Overall: pupils equal, round, reactive to light and accomodation 10/13/2016 None Full Exam - General 1994 Ears/Nose/Throat oral cavity/pharynx/larynx Overall: oral mucosa clear 10/13/2016 None Full Exam - General 1994 Respiratory auscultation Overall: breath sounds clear bilaterally 10/13/2016 None Full Exam - General 1994 Respiratory respiratory effort/rhythm Overall: no retractions 10/13/2016 None Full Exam - General 1994 Respiratory respiratory effort/rhythm Overall: normal rate 10/13/2016 None Full Exam - General 1994 Cardiovascular auscultation of heart Overall: regular rate 10/13/2016 None Full Exam - General 1994 Cardiovascular auscultation of heart Overall: normal heart sounds 10/13/2016 None Full Exam - General 1994 Cardiovascular auscultation of heart Overall: no murmurs 10/13/2016 None Full Exam - General 1994 Abdomen abdominal exam Overall: no tenderness 10/13/2016 None Full Exam - General 1994 Abdomen abdominal exam Overall: normal bowel sounds 10/13/2016 None Full Exam - General 1994 Musculoskeletal head and neck Overall: head atraumatic 10/13/2016 None Full Exam - General 1994 Musculoskeletal head and neck Overall: cervical spine benign 10/13/2016 None Full Exam - General 1994 Neurologic mental status Overall: alert 10/13/2016 None Full Exam - General 1994 Neurologic mental status Overall: oriented 10/13/2016 None Full Exam - General 1994 Neurologic gait Overall: no ataxia, no unsteadiness 10/13/2016 None Full Exam - General 1994 Neurologic motor Overall: normal bulk, tone 10/13/2016 None Full Exam - General 1994 Psychiatric orientation/consciousness Overall: oriented to person, place and time 10/13/2016 None Full Exam - General 1994 Psychiatric mood and affect Overall: normal mood and affect 10/13/2016 None Full Exam - General 1994 Psychiatric speech Overall: normal quality, no aphasia 10/13/2016 None Full Exam - General 1994 Ears/Nose/Throat otoscopic exam External auditory canal: minimal cerumen 10/13/2016 None Full Exam - General 1994 Ears/Nose/Throat otoscopic exam Tympanic membrane: air- fluid level 10/13/2016 None Full Exam - General 1994 Constitutional general appearance Development: well developed 10/08/2016 None Full Exam - General 1994 Constitutional general appearance Development: appears stated age 0710/08/2016 None Full Exam - General 1994 Eyes pupils and irises Overall: pupils equal, round, reactive to light and accomodation 10/08/2016 None Full Exam - General 1994 Ears/Nose/Throat oral cavity/pharynx/larynx Overall: oral mucosa clear 10/08/2016 None Full Exam - General 1994 Respiratory auscultation Overall: breath sounds clear bilaterally 10/08/2016 None Full Exam - General 1994 Respiratory respiratory effort/rhythm Overall: no retractions 10/08/2016 None Full Exam - General 1994 Respiratory respiratory effort/rhythm Overall: normal rate 10/08/2016 None Full Exam - General 1994 Cardiovascular auscultation of heart Overall: regular rate 10/08/2016 None Full Exam - General 1994 Cardiovascular auscultation of heart Overall: normal heart sounds 10/08/2016 None Full Exam - General 1994 Cardiovascular auscultation of heart Overall: no murmurs 10/08/2016 None Full Exam - General 1994 Abdomen abdominal exam Overall: no tenderness 10/08/2016 None Full Exam - General 1994 Abdomen abdominal exam Overall: normal bowel sounds 10/08/2016 None Full Exam - General 1994 Musculoskeletal head and neck Overall: head atraumatic 10/08/2016 None Full Exam - General 1994 Musculoskeletal head and neck Overall: cervical spine benign 10/08/2016 None Full Exam - General 1994 Neurologic mental status Overall: alert 10/08/2016 None Full Exam - General 1994 Neurologic mental status Overall: oriented 10/08/2016 None Full Exam - General 1994 Neurologic gait Overall: no ataxia, no unsteadiness 10/08/2016 None Full Exam - General 1994 Neurologic motor Overall: normal bulk, tone 10/08/2016 None Full Exam - General 1994 Psychiatric orientation/consciousness Overall: oriented to person, place and time 10/08/2016 None Full Exam - General 1994 Psychiatric mood and affect Overall: normal mood and affect 10/08/2016 None Full Exam - General 1994 Psychiatric speech Overall: normal quality, no aphasia 10/08/2016 None Full Exam - General 1994 Integument inspection of skin Location: diffuse 10/08/2016 None Full Exam - General 1994 Integument inspection of skin Location: left arm 10/08/2016 None Full Exam - General 1994 Integument inspection of skin Location: right arm 10/08/2016 None Full Exam - General 1994 Integument inspection of skin Location: chest 10/08/2016 None Full Exam - General 1994 Integument inspection of skin Location: abdomen 10/08/2016 None Full Exam - General 1994 Integument inspection of skin Location: back 10/08/2016 None Full Exam - General 1994 Integument inspection of skin Location: right leg 10/08/2016 None Full Exam - General 1994 Integument inspection of skin Location: left leg 10/08/2016 None Full Exam - General 1994 Integument inspection of skin Rash/Lesions: macule 10/08/2016 None Full Exam - General 1994 Integument inspection of skin Pigmentation: erythematous 10/08/2016 None Full Exam - General 1994 Constitutional general appearance Development: well developed 09/29/2016 None Full Exam - General 1994 Constitutional general appearance Development: appears stated age 0609/29/2016 None Full Exam - General 1994 Eyes pupils and irises Overall: pupils equal, round, reactive to light and accomodation 09/29/2016 None Full Exam - General 1994 Ears/Nose/Throat oral cavity/pharynx/larynx Overall: oral mucosa clear 09/29/2016 None Full Exam - General 1994 Respiratory auscultation Overall: breath sounds clear bilaterally 09/29/2016 None Full Exam - General 1994 Respiratory respiratory effort/rhythm Overall: no retractions 09/29/2016 None Full Exam - General 1994 Respiratory respiratory effort/rhythm Overall: normal rate 09/29/2016 None Full Exam - General 1994 Cardiovascular auscultation of heart Overall: regular rate 09/29/2016 None Full Exam - General 1994 Cardiovascular auscultation of heart Overall: normal heart sounds 09/29/2016 None Full Exam - General 1994 Cardiovascular auscultation of heart Overall: no murmurs 09/29/2016 None Full Exam - General 1994 Abdomen abdominal exam Overall: no tenderness 09/29/2016 None Full Exam - General 1994 Abdomen abdominal exam Overall: normal bowel sounds 09/29/2016 None Full Exam - General 1994 Neurologic mental status Overall: alert 09/29/2016 None Full Exam - General 1994 Neurologic mental status Overall: oriented 09/29/2016 None Full Exam - General 1994 Neurologic gait Overall: no ataxia, no unsteadiness 09/29/2016 None Full Exam - General 1994 Neurologic motor Overall: normal bulk, tone 09/29/2016 None Full Exam - General 1994 Psychiatric orientation/consciousness Overall: oriented to person, place and time 09/29/2016 None Full Exam - General 1994 Psychiatric mood and affect Overall: normal mood and affect 09/29/2016 None Full Exam - General 1994 Psychiatric speech Overall: normal quality, no aphasia 09/29/2016 None Full Exam - General 1994 Musculoskeletal head and neck Overall: cervical spine benign 09/29/2016 None Full Exam - General 1994 Musculoskeletal head and neck Overall: head atraumatic 09/29/2016 None Full Exam - General 1994 Constitutional general appearance Development: well developed 09/03/2016 None Full Exam - General 1994 Constitutional general appearance Development: appears stated age 0609/03/2016 None Full Exam - General 1994 Eyes pupils and irises Overall: pupils equal, round, reactive to light and accomodation 09/03/2016 None Full Exam - General 1994 Ears/Nose/Throat oral cavity/pharynx/larynx Overall: oral mucosa clear 09/03/2016 None Full Exam - General 1994 Respiratory auscultation Overall: breath sounds clear bilaterally 09/03/2016 None Full Exam - General 1994 Respiratory respiratory effort/rhythm Overall: no retractions 09/03/2016 None Full Exam - General 1994 Respiratory respiratory effort/rhythm Overall: normal rate 09/03/2016 None Full Exam - General 1994 Cardiovascular auscultation of heart Overall: regular rate 09/03/2016 None Full Exam - General 1994 Cardiovascular auscultation of heart Overall: normal heart sounds 09/03/2016 None Full Exam - General 1994 Cardiovascular auscultation of heart Overall: no murmurs 09/03/2016 None Full Exam - General 1994 Abdomen abdominal exam Overall: normal bowel sounds 09/03/2016 None Full Exam - General 1994 Neurologic mental status Overall: alert 09/03/2016 None Full Exam - General 1994 Neurologic mental status Overall: oriented 09/03/2016 None Full Exam - General 1994 Neurologic gait Overall: no ataxia, no unsteadiness 09/03/2016 None Full Exam - General 1994 Neurologic motor Overall: normal bulk, tone 09/03/2016 None Full Exam - General 1994 Psychiatric orientation/consciousness Overall: oriented to person, place and time 09/03/2016 None Full Exam - General 1994 Psychiatric mood and affect Overall: normal mood and affect 09/03/2016 None Full Exam - General 1994 Psychiatric speech Overall: normal quality, no aphasia 09/03/2016 None Full Exam - General 1994 Abdomen abdominal exam Overall: no tenderness 09/03/2016 None Full Exam - General 1994 Constitutional general appearance Overall: well developed 08/24/2016 None Full Exam - General 1994 Constitutional general appearance Overall: well nourished 08/24/2016 None Full Exam - General 1994 Constitutional general appearance Evidence of Distress: anxious 08/24/2016 None Full Exam - General 1994 Eyes conjunctiva /eyelids Overall: conjunctiva clear 08/24/2016 None Full Exam - General 1994 Eyes conjunctiva /eyelids Overall: eyelids normal 08/24/2016 None Full Exam - General 1994 Ears/Nose/Throat otoscopic exam Overall: external auditory canals clear 08/24/2016 None Full Exam - General 1994 Ears/Nose/Throat otoscopic exam Overall: tympanic membranes clear 08/24/2016 None Full Exam - General 1994 Ears/Nose/Throat lips/teeth/gingiva Overall: benign lips 08/24/2016 None Full Exam - General 1994 Ears/Nose/Throat oral cavity/pharynx/larynx Overall: oral mucosa clear 08/24/2016 None Full Exam - General 1994 Respiratory auscultation Overall: breath sounds clear bilaterally 08/24/2016 None Full Exam - General 1994 Respiratory respiratory effort/rhythm Overall: no retractions 08/24/2016 None Full Exam - General 1994 Respiratory respiratory effort/rhythm Overall: normal rate 08/24/2016 None Full Exam - General 1994 Cardiovascular auscultation of heart Overall: regular rate 08/24/2016 None Full Exam - General 1994 Cardiovascular auscultation of heart Overall: normal heart sounds 08/24/2016 None Full Exam - General 1994 Abdomen abdominal exam Overall: no tenderness 08/24/2016 None Full Exam - General 1994 Abdomen abdominal exam Overall: normal bowel sounds 08/24/2016 None Full Exam - General 1994 Lymphatic neck nodes Overall: anterior cervical chain benign 08/24/2016 None Full Exam - General 1994 Lymphatic neck nodes Overall: posterior cervical chain benign 08/24/2016 None Full Exam - General 1994 Musculoskeletal gait and station Overall: normal gait 08/24/2016 None Full Exam - General 1994 Musculoskeletal gait and station Overall: normal station 08/24/2016 None Full Exam - General 1994 Musculoskeletal head and neck Overall: head atraumatic 08/24/2016 None Full Exam - General 1994 Psychiatric orientation/consciousness Overall: oriented to person, place and time 08/24/2016 None Full Exam - General 1994 Psychiatric mood and affect Mood: anxious 08/24/2016 None Full Exam - General 1994 Eyes conjunctiva /eyelids Overall: conjunctiva clear 08/11/2016 None Full Exam - General 1994 Eyes conjunctiva /eyelids Overall: eyelids normal 08/11/2016 None Full Exam - General 1994 Respiratory respiratory effort/rhythm Overall: no retractions 08/11/2016 None Full Exam - General 1994 Respiratory respiratory effort/rhythm Overall: normal rate 08/11/2016 None Full Exam - General 1994 Musculoskeletal gait and station Overall: normal gait 08/11/2016 None Full Exam - General 1994 Musculoskeletal gait and station Overall: normal station 08/11/2016 None Full Exam - General 1994 Musculoskeletal head and neck Overall: head atraumatic 08/11/2016 None Full Exam - General 1994 Neurologic mental status Overall: alert 08/11/2016 None Full Exam - General 1994 Neurologic mental status Overall: oriented 08/11/2016 None Full Exam - General 1994 Neurologic gait Overall: no ataxia, no unsteadiness 08/11/2016 None Full Exam - General 1994 Neurologic motor Overall: normal bulk, tone 08/11/2016 None Full Exam - General 1994 Psychiatric orientation/consciousness Overall: oriented to person, place and time 08/11/2016 None Full Exam - General 1994 Psychiatric mood and affect Mood: anxious 08/11/2016 None Full Exam - General 1994 Psychiatric speech Overall: normal quality, no aphasia 08/11/2016 None Full Exam - General 1994 Constitutional general appearance Overall: well developed 08/11/2016 None Full Exam - General 1994 Constitutional general appearance Overall: well nourished 08/11/2016 None Full Exam - General 1994 Constitutional general appearance Evidence of Distress: anxious 08/11/2016 None Full Exam - General 1994 Ears/Nose/Throat lips/teeth/gingiva Overall: benign lips 08/11/2016 None Full Exam - General 1994 Ears/Nose/Throat oral cavity/pharynx/larynx Oral mucosa: thrush 08/11/2016 None Full Exam - General 1994 Constitutional general appearance Development: well developed 08/03/2016 None Full Exam - General 1994 Constitutional general appearance Development: appears stated age 0508/03/2016 None Full Exam - General 1994 Eyes conjunctiva /eyelids Overall: conjunctiva clear 08/03/2016 None Full Exam - General 1994 Eyes conjunctiva /eyelids Overall: cornea clear 08/03/2016 None Full Exam - General 1994 Eyes conjunctiva /eyelids Overall: eyelids normal 08/03/2016 None Full Exam - General 1994 Eyes pupils and irises Overall: pupils equal, round, reactive to light and accomodation 08/03/2016 None Full Exam - General 1994 Ears/Nose/Throat otoscopic exam Overall: external auditory canals clear 08/03/2016 None Full Exam - General 1994 Ears/Nose/Throat otoscopic exam Overall: tympanic membranes clear 08/03/2016 None Full Exam - General 1994 Ears/Nose/Throat oral cavity/pharynx/larynx Overall: oral mucosa clear 08/03/2016 None Full Exam - General 1994 Neck inspection of neck Overall: normal size 08/03/2016 None Full Exam - General 1994 Neck inspection of neck Overall: normal appearance 08/03/2016 None Full Exam - General 1994 Respiratory auscultation Overall: breath sounds clear bilaterally 08/03/2016 None Full Exam - General 1994 Respiratory respiratory effort/rhythm Overall: no retractions 08/03/2016 None Full Exam - General 1994 Respiratory respiratory effort/rhythm Overall: normal rate 08/03/2016 None Full Exam - General 1994 Cardiovascular auscultation of heart Overall: regular rate 08/03/2016 None Full Exam - General 1994 Cardiovascular auscultation of heart Overall: normal heart sounds 08/03/2016 None Full Exam - General 1994 Cardiovascular auscultation of heart Overall: no murmurs 08/03/2016 None Full Exam - General 1994 Abdomen abdominal exam Overall: no tenderness 08/03/2016 None Full Exam - General 1994 Abdomen abdominal exam Overall: normal bowel sounds 08/03/2016 None Full Exam - General 1994 Lymphatic neck nodes Overall: anterior cervical chain benign 08/03/2016 None Full Exam - General 1994 Lymphatic neck nodes Overall: posterior cervical chain benign 08/03/2016 None Full Exam - General 1994 Musculoskeletal gait and station Overall: normal gait 08/03/2016 None Full Exam - General 1994 Musculoskeletal gait and station Overall: normal station 08/03/2016 None Full Exam - General 1994 Musculoskeletal head and neck Overall: head atraumatic 08/03/2016 None Full Exam - General 1994 Musculoskeletal head and neck Overall: TMJ benign 08/03/2016 None Full Exam - General 1994 Integument inspection of skin Overall: few scattered moles, no gross abnormalities 08/03/2016 None Full Exam - General 1994 Neurologic mental status Overall: alert 08/03/2016 None Full Exam - General 1994 Neurologic mental status Overall: oriented 08/03/2016 None Full Exam - General 1994 Neurologic gait Overall: no ataxia, no unsteadiness 08/03/2016 None Full Exam - General 1994 Neurologic motor Overall: normal bulk, tone 08/03/2016 None Full Exam - General 1994 Psychiatric orientation/consciousness Overall: oriented to person, place and time 08/03/2016 None Full Exam - General 1994 Psychiatric speech Overall: normal quality, no aphasia 08/03/2016 None Full Exam - General 1994 Psychiatric mood and affect Mood: anxious 08/03/2016 None Full Exam - General 1994 Eyes conjunctiva /eyelids Overall: conjunctiva clear 07/27/2016 None Full Exam - General 1994 Eyes conjunctiva /eyelids Overall: eyelids normal 07/27/2016 None Full Exam - General 1994 Ears/Nose/Throat otoscopic exam Overall: external auditory canals clear 07/27/2016 None Full Exam - General 1994 Ears/Nose/Throat otoscopic exam Overall: tympanic membranes clear 07/27/2016 None Full Exam - General 1994 Ears/Nose/Throat oral cavity/pharynx/larynx Overall: oral mucosa clear 07/27/2016 None Full Exam - General 1994 Respiratory auscultation Overall: breath sounds clear bilaterally 07/27/2016 None Full Exam - General 1994 Respiratory respiratory effort/rhythm Overall: no retractions 07/27/2016 None Full Exam - General 1994 Respiratory respiratory effort/rhythm Overall: normal rate 07/27/2016 None Full Exam - General 1994 Cardiovascular auscultation of heart Overall: regular rate 07/27/2016 None Full Exam - General 1994 Cardiovascular auscultation of heart Overall: normal heart sounds 07/27/2016 None Full Exam - General 1994 Abdomen abdominal exam Overall: no tenderness 07/27/2016 None Full Exam - General 1994 Lymphatic neck nodes Overall: anterior cervical chain benign 07/27/2016 None Full Exam - General 1994 Lymphatic neck nodes Overall: posterior cervical chain benign 07/27/2016 None Full Exam - General 1994 Musculoskeletal gait and station Overall: normal gait 07/27/2016 None Full Exam - General 1994 Musculoskeletal gait and station Overall: normal station 07/27/2016 None Full Exam - General 1994 Musculoskeletal head and neck Overall: head atraumatic 07/27/2016 None Full Exam - General 1994 Psychiatric orientation/consciousness Overall: oriented to person, place and time 07/27/2016 None Full Exam - General 1994 Psychiatric mood and affect Mood: anxious 07/27/2016 None Full Exam - General 1994 Constitutional general appearance Overall: well developed 07/27/2016 None Full Exam - General 1994 Constitutional general appearance Overall: well nourished 07/27/2016 None Full Exam - General 1994 Constitutional general appearance Evidence of Distress: anxious 07/27/2016 None Full Exam - General 1994 Ears/Nose/Throat lips/teeth/gingiva Overall: benign lips 07/27/2016 None Full Exam - General 1994 Abdomen abdominal exam Overall: normal bowel sounds 07/27/2016 None Full Exam - General 1994 Constitutional general appearance Development: well developed 07/21/2016 None Full Exam - General 1994 Constitutional general appearance Development: appears stated age 0407/21/2016 None Full Exam - General 1994 Eyes conjunctiva /eyelids Overall: conjunctiva clear 07/21/2016 None Full Exam - General 1994 Eyes conjunctiva /eyelids Overall: cornea clear 07/21/2016 None Full Exam - General 1994 Eyes conjunctiva /eyelids Overall: eyelids normal 07/21/2016 None Full Exam - General 1994 Eyes pupils and irises Overall: pupils equal, round, reactive to light and accomodation 07/21/2016 None Full Exam - General 1994 Ears/Nose/Throat otoscopic exam Overall: external auditory canals clear 07/21/2016 None Full Exam - General 1994 Ears/Nose/Throat otoscopic exam Overall: tympanic membranes clear 07/21/2016 None Full Exam - General 1994 Ears/Nose/Throat oral cavity/pharynx/larynx Overall: oral mucosa clear 07/21/2016 None Full Exam - General 1994 Neck inspection of neck Overall: normal size 07/21/2016 None Full Exam - General 1994 Neck inspection of neck Overall: normal appearance 07/21/2016 None Full Exam - General 1994 Respiratory auscultation Overall: breath sounds clear bilaterally 07/21/2016 None Full Exam - General 1994 Respiratory respiratory effort/rhythm Overall: no retractions 07/21/2016 None Full Exam - General 1994 Respiratory respiratory effort/rhythm Overall: normal rate 07/21/2016 None Full Exam - General 1994 Cardiovascular auscultation of heart Overall: regular rate 07/21/2016 None Full Exam - General 1994 Cardiovascular auscultation of heart Overall: normal heart sounds 07/21/2016 None Full Exam - General 1994 Cardiovascular auscultation of heart Overall: no murmurs 07/21/2016 None Full Exam - General 1994 Abdomen abdominal exam Overall: no tenderness 07/21/2016 None Full Exam - General 1994 Abdomen abdominal exam Overall: normal bowel sounds 07/21/2016 None Full Exam - General 1994 Lymphatic neck nodes Overall: anterior cervical chain benign 07/21/2016 None Full Exam - General 1994 Lymphatic neck nodes Overall: posterior cervical chain benign 07/21/2016 None Full Exam - General 1994 Musculoskeletal gait and station Overall: normal gait 07/21/2016 None Full Exam - General 1994 Musculoskeletal gait and station Overall: normal station 07/21/2016 None Full Exam - General 1994 Musculoskeletal head and neck Overall: head atraumatic 07/21/2016 None Full Exam - General 1994 Musculoskeletal head and neck Overall: TMJ benign 07/21/2016 None Full Exam - General 1994 Integument inspection of skin Overall: few scattered moles, no gross abnormalities 07/21/2016 None Full Exam - General 1994 Neurologic mental status Overall: alert 07/21/2016 None Full Exam - General 1994 Neurologic mental status Overall: oriented 07/21/2016 None Full Exam - General 1994 Neurologic gait Overall: no ataxia, no unsteadiness 07/21/2016 None Full Exam - General 1994 Neurologic motor Overall: normal bulk, tone 07/21/2016 None Full Exam - General 1994 Psychiatric orientation/consciousness Overall: oriented to person, place and time 07/21/2016 None Full Exam - General 1994 Psychiatric mood and affect Overall: normal mood and affect 07/21/2016 None Full Exam - General 1994 Psychiatric speech Overall: normal quality, no aphasia 07/21/2016 None Full Exam - General 1994 Constitutional general appearance Development: well developed 07/14/2016 None Full Exam - General 1994 Constitutional general appearance Development: appears stated age 0407/14/2016 None Full Exam - General 1994 Eyes conjunctiva /eyelids Overall: conjunctiva clear 07/14/2016 None Full Exam - General 1994 Eyes conjunctiva /eyelids Overall: cornea clear 07/14/2016 None Full Exam - General 1994 Eyes conjunctiva /eyelids Overall: eyelids normal 07/14/2016 None Full Exam - General 1994 Eyes pupils and irises Overall: pupils equal, round, reactive to light and accomodation 07/14/2016 None Full Exam - General 1994 Ears/Nose/Throat otoscopic exam Overall: external auditory canals clear 07/14/2016 None Full Exam - General 1994 Ears/Nose/Throat otoscopic exam Overall: tympanic membranes clear 07/14/2016 None Full Exam - General 1994 Ears/Nose/Throat oral cavity/pharynx/larynx Overall: oral mucosa clear 07/14/2016 None Full Exam - General 1994 Neck inspection of neck Overall: normal size 07/14/2016 None Full Exam - General 1994 Neck inspection of neck Overall: normal appearance 07/14/2016 None Full Exam - General 1994 Respiratory auscultation Overall: breath sounds clear bilaterally 07/14/2016 None Full Exam - General 1994 Respiratory respiratory effort/rhythm Overall: no retractions 07/14/2016 None Full Exam - General 1994 Respiratory respiratory effort/rhythm Overall: normal rate 07/14/2016 None Full Exam - General 1994 Cardiovascular auscultation of heart Overall: regular rate 07/14/2016 None Full Exam - General 1994 Cardiovascular auscultation of heart Overall: normal heart sounds 07/14/2016 None Full Exam - General 1994 Cardiovascular auscultation of heart Overall: no murmurs 07/14/2016 None Full Exam - General 1994 Abdomen abdominal exam Overall: no tenderness 07/14/2016 None Full Exam - General 1994 Abdomen abdominal exam Overall: normal bowel sounds 07/14/2016 None Full Exam - General 1994 Lymphatic neck nodes Overall: anterior cervical chain benign 07/14/2016 None Full Exam - General 1994 Lymphatic neck nodes Overall: posterior cervical chain benign 07/14/2016 None Full Exam - General 1994 Musculoskeletal gait and station Overall: normal gait 07/14/2016 None Full Exam - General 1994 Musculoskeletal gait and station Overall: normal station 07/14/2016 None Full Exam - General 1994 Musculoskeletal head and neck Overall: head atraumatic 07/14/2016 None Full Exam - General 1994 Musculoskeletal head and neck Overall: TMJ benign 07/14/2016 None Full Exam - General 1994 Integument inspection of skin Overall: few scattered moles, no gross abnormalities 07/14/2016 None Full Exam - General 1994 Neurologic mental status Overall: alert 07/14/2016 None Full Exam - General 1994 Neurologic mental status Overall: oriented 07/14/2016 None Full Exam - General 1994 Neurologic gait Overall: no ataxia, no unsteadiness 07/14/2016 None Full Exam - General 1994 Neurologic motor Overall: normal bulk, tone 07/14/2016 None Full Exam - General 1994 Psychiatric orientation/consciousness Overall: oriented to person, place and time 07/14/2016 None Full Exam - General 1994 Psychiatric mood and affect Overall: normal mood and affect 07/14/2016 None Full Exam - General 1994 Psychiatric speech Overall: normal quality, no aphasia 07/14/2016 None Full Exam - General 1994 Constitutional general appearance Development: well developed 07/10/2016 None Full Exam - General 1994 Constitutional general appearance Development: appears stated age 0407/10/2016 None Full Exam - General 1994 Eyes conjunctiva /eyelids Overall: conjunctiva clear 07/10/2016 None Full Exam - General 1994 Eyes conjunctiva /eyelids Overall: cornea clear 07/10/2016 None Full Exam - General 1994 Eyes conjunctiva /eyelids Overall: eyelids normal 07/10/2016 None Full Exam - General 1994 Eyes pupils and irises Overall: pupils equal, round, reactive to light and accomodation 07/10/2016 None Full Exam - General 1994 Ears/Nose/Throat otoscopic exam Overall: external auditory canals clear 07/10/2016 None Full Exam - General 1994 Ears/Nose/Throat otoscopic exam Overall: tympanic membranes clear 07/10/2016 None Full Exam - General 1994 Ears/Nose/Throat oral cavity/pharynx/larynx Overall: oral mucosa clear 07/10/2016 None Full Exam - General 1994 Neck inspection of neck Overall: normal size 07/10/2016 None Full Exam - General 1994 Neck inspection of neck Overall: normal appearance 07/10/2016 None Full Exam - General 1994 Respiratory auscultation Overall: breath sounds clear bilaterally 07/10/2016 None Full Exam - General 1994 Respiratory respiratory effort/rhythm Overall: no retractions 07/10/2016 None Full Exam - General 1994 Respiratory respiratory effort/rhythm Overall: normal rate 07/10/2016 None Full Exam - General 1994 Cardiovascular auscultation of heart Overall: regular rate 07/10/2016 None Full Exam - General 1994 Cardiovascular auscultation of heart Overall: normal heart sounds 07/10/2016 None Full Exam - General 1994 Cardiovascular auscultation of heart Overall: no murmurs 07/10/2016 None Full Exam - General 1994 Abdomen abdominal exam Overall: no tenderness 07/10/2016 None Full Exam - General 1994 Abdomen abdominal exam Overall: normal bowel sounds 07/10/2016 None Full Exam - General 1994 Lymphatic neck nodes Overall: anterior cervical chain benign 07/10/2016 None Full Exam - General 1994 Lymphatic neck nodes Overall: posterior cervical chain benign 07/10/2016 None Full Exam - General 1994 Musculoskeletal gait and station Overall: normal gait 07/10/2016 None Full Exam - General 1994 Musculoskeletal gait and station Overall: normal station 07/10/2016 None Full Exam - General 1994 Musculoskeletal head and neck Overall: head atraumatic 07/10/2016 None Full Exam - General 1994 Musculoskeletal head and neck Overall: TMJ benign 07/10/2016 None Full Exam - General 1994 Integument inspection of skin Overall: few scattered moles, no gross abnormalities 07/10/2016 None Full Exam - General 1994 Neurologic mental status Overall: alert 07/10/2016 None Full Exam - General 1994 Neurologic mental status Overall: oriented 07/10/2016 None Full Exam - General 1994 Neurologic gait Overall: no ataxia, no unsteadiness 07/10/2016 None Full Exam - General 1994 Neurologic motor Overall: normal bulk, tone 07/10/2016 None Full Exam - General 1994 Psychiatric orientation/consciousness Overall: oriented to person, place and time 07/10/2016 None Full Exam - General 1994 Psychiatric mood and affect Overall: normal mood and affect 07/10/2016 None Full Exam - General 1994 Psychiatric speech Overall: normal quality, no aphasia 07/10/2016 None Full Exam - General 1994 Genitourinary labia and vagina Vaginal discharge: white 07/10/2016 None Full Exam - General 1994 Constitutional general appearance Development: well developed 07/03/2016 None Full Exam - General 1994 Constitutional general appearance Development: appears stated age 0307/03/2016 None Full Exam - General 1994 Eyes conjunctiva /eyelids Overall: conjunctiva clear 07/03/2016 None Full Exam - General 1994 Eyes conjunctiva /eyelids Overall: cornea clear 07/03/2016 None Full Exam - General 1994 Eyes conjunctiva /eyelids Overall: eyelids normal 07/03/2016 None Full Exam - General 1994 Eyes pupils and irises Overall: pupils equal, round, reactive to light and accomodation 07/03/2016 None Full Exam - General 1994 Ears/Nose/Throat otoscopic exam Overall: external auditory canals clear 07/03/2016 None Full Exam - General 1994 Ears/Nose/Throat otoscopic exam Overall: tympanic membranes clear 07/03/2016 None Full Exam - General 1994 Ears/Nose/Throat oral cavity/pharynx/larynx Overall: oral mucosa clear 07/03/2016 None Full Exam - General 1994 Neck inspection of neck Overall: normal size 07/03/2016 None Full Exam - General 1994 Neck inspection of neck Overall: normal appearance 07/03/2016 None Full Exam - General 1994 Respiratory auscultation Overall: breath sounds clear bilaterally 07/03/2016 None Full Exam - General 1994 Respiratory respiratory effort/rhythm Overall: no retractions 07/03/2016 None Full Exam - General 1994 Respiratory respiratory effort/rhythm Overall: normal rate 07/03/2016 None Full Exam - General 1994 Cardiovascular auscultation of heart Overall: regular rate 07/03/2016 None Full Exam - General 1994 Cardiovascular auscultation of heart Overall: normal heart sounds 07/03/2016 None Full Exam - General 1994 Cardiovascular auscultation of heart Overall: no murmurs 07/03/2016 None Full Exam - General 1994 Abdomen abdominal exam Overall: no tenderness 07/03/2016 None Full Exam - General 1994 Abdomen abdominal exam Overall: normal bowel sounds 07/03/2016 None Full Exam - General 1994 Lymphatic neck nodes Overall: anterior cervical chain benign 07/03/2016 None Full Exam - General 1994 Lymphatic neck nodes Overall: posterior cervical chain benign 07/03/2016 None Full Exam - General 1994 Musculoskeletal gait and station Overall: normal gait 07/03/2016 None Full Exam - General 1994 Musculoskeletal gait and station Overall: normal station 07/03/2016 None Full Exam - General 1994 Musculoskeletal head and neck Overall: head atraumatic 07/03/2016 None Full Exam - General 1994 Musculoskeletal head and neck Overall: TMJ benign 07/03/2016 None Full Exam - General 1994 Integument inspection of skin Overall: few scattered moles, no gross abnormalities 07/03/2016 None Full Exam - General 1994 Neurologic mental status Overall: alert 07/03/2016 None Full Exam - General 1994 Neurologic mental status Overall: oriented 07/03/2016 None Full Exam - General 1994 Neurologic gait Overall: no ataxia, no unsteadiness 07/03/2016 None Full Exam - General 1994 Neurologic motor Overall: normal bulk, tone 07/03/2016 None Full Exam - General 1994 Psychiatric orientation/consciousness Overall: oriented to person, place and time 07/03/2016 None Full Exam - General 1994 Psychiatric mood and affect Overall: normal mood and affect 07/03/2016 None Full Exam - General 1994 Psychiatric speech Overall: normal quality, no aphasia 07/03/2016 None Full Exam - General 1994 Eyes conjunctiva /eyelids Overall: conjunctiva clear 06/30/2016 None Full Exam - General 1994 Eyes conjunctiva /eyelids Overall: eyelids normal 06/30/2016 None Full Exam - General 1994 Ears/Nose/Throat otoscopic exam Overall: external auditory canals clear 06/30/2016 None Full Exam - General 1994 Ears/Nose/Throat otoscopic exam Overall: tympanic membranes clear 06/30/2016 None Full Exam - General 1994 Ears/Nose/Throat oral cavity/pharynx/larynx Overall: oral mucosa clear 06/30/2016 None Full Exam - General 1994 Respiratory auscultation Overall: breath sounds clear bilaterally 06/30/2016 None Full Exam - General 1994 Respiratory respiratory effort/rhythm Overall: no retractions 06/30/2016 None Full Exam - General 1994 Respiratory respiratory effort/rhythm Overall: normal rate 06/30/2016 None Full Exam - General 1994 Cardiovascular auscultation of heart Overall: regular rate 06/30/2016 None Full Exam - General 1994 Cardiovascular auscultation of heart Overall: normal heart sounds 06/30/2016 None Full Exam - General 1994 Lymphatic neck nodes Overall: anterior cervical chain benign 06/30/2016 None Full Exam - General 1994 Lymphatic neck nodes Overall: posterior cervical chain benign 06/30/2016 None Full Exam - General 1994 Musculoskeletal gait and station Overall: normal gait 06/30/2016 None Full Exam - General 1994 Musculoskeletal gait and station Overall: normal station 06/30/2016 None Full Exam - General 1994 Musculoskeletal head and neck Overall: head atraumatic 06/30/2016 None Full Exam - General 1994 Neurologic gait Overall: no ataxia, no unsteadiness 06/30/2016 None Full Exam - General 1994 Psychiatric orientation/consciousness Overall: oriented to person, place and time 06/30/2016 None Full Exam - General 1994 Psychiatric mood and affect Overall: normal mood and affect 06/30/2016 None Full Exam - General 1994 Constitutional general appearance Overall: well developed 06/30/2016 None Full Exam - General 1994 Constitutional general appearance Overall: well nourished 06/30/2016 None Full Exam - General 1994 Ears/Nose/Throat lips/teeth/gingiva Overall: benign lips 06/30/2016 None Full Exam - General 1994 Constitutional general appearance Development: well developed 06/23/2016 None Full Exam - General 1994 Constitutional general appearance Development: appears stated age 0306/23/2016 None Full Exam - General 1994 Eyes conjunctiva /eyelids Overall: conjunctiva clear 06/23/2016 None Full Exam - General 1994 Eyes conjunctiva /eyelids Overall: cornea clear 06/23/2016 None Full Exam - General 1994 Eyes conjunctiva /eyelids Overall: eyelids normal 06/23/2016 None Full Exam - General 1994 Eyes pupils and irises Overall: pupils equal, round, reactive to light and accomodation 06/23/2016 None Full Exam - General 1994 Ears/Nose/Throat otoscopic exam Overall: external auditory canals clear 06/23/2016 None Full Exam - General 1994 Ears/Nose/Throat otoscopic exam Overall: tympanic membranes clear 06/23/2016 None Full Exam - General 1994 Ears/Nose/Throat oral cavity/pharynx/larynx Overall: oral mucosa clear 06/23/2016 None Full Exam - General 1994 Respiratory auscultation Overall: breath sounds clear bilaterally 06/23/2016 None Full Exam - General 1994 Respiratory respiratory effort/rhythm Overall: no retractions 06/23/2016 None Full Exam - General 1994 Respiratory respiratory effort/rhythm Overall: normal rate 06/23/2016 None Full Exam - General 1994 Cardiovascular auscultation of heart Overall: regular rate 06/23/2016 None Full Exam - General 1994 Cardiovascular auscultation of heart Overall: normal heart sounds 06/23/2016 None Full Exam - General 1994 Cardiovascular auscultation of heart Overall: no murmurs 06/23/2016 None Full Exam - General 1994 Abdomen abdominal exam Overall: no tenderness 06/23/2016 None Full Exam - General 1994 Abdomen abdominal exam Overall: normal bowel sounds 06/23/2016 None Full Exam - General 1994 Musculoskeletal gait and station Overall: normal gait 06/23/2016 None Full Exam - General 1994 Musculoskeletal gait and station Overall: normal station 06/23/2016 None Full Exam - General 1994 Musculoskeletal head and neck Overall: head atraumatic 06/23/2016 None Full Exam - General 1994 Musculoskeletal head and neck Overall: TMJ benign 06/23/2016 None Full Exam - General 1994 Neurologic mental status Overall: alert 06/23/2016 None Full Exam - General 1994 Neurologic mental status Overall: oriented 06/23/2016 None Full Exam - General 1994 Neurologic gait Overall: no ataxia, no unsteadiness 06/23/2016 None Full Exam - General 1994 Neurologic motor Overall: normal bulk, tone 06/23/2016 None Full Exam - General 1994 Psychiatric orientation/consciousness Overall: oriented to person, place and time 06/23/2016 None Full Exam - General 1994 Psychiatric mood and affect Overall: normal mood and affect 06/23/2016 None Full Exam - General 1994 Psychiatric speech Overall: normal quality, no aphasia 06/23/2016 None Full Exam - ENT Constitutional general appearance Overall: well nourished 06/15/2016 None Full Exam - ENT Constitutional general appearance Overall: well developed 06/15/2016 None Full Exam - ENT Constitutional general appearance Overall: in no acute distress 06/15/2016 None Full Exam - ENT Ears/Nose/Throat lips/ teeth/gingiva Overall: benign lips 06/15/2016 None Full Exam - ENT Ears/Nose/Throat oropharynx Oral mucosa: thrush 06/15/2016 None Full Exam - ENT Respiratory auscultation Overall: breath sounds clear bilaterally 06/15/2016 None Full Exam - ENT Respiratory inspection Overall: no retractions 06/15/2016 None Full Exam - ENT Respiratory inspection Overall: normal rate None Full Exam - ENT Cardiovascular auscultation of heart Overall: regular rate 06/15/2016 None Full Exam - ENT Cardiovascular auscultation of heart Overall: normal heart sounds 06/15/2016 None Full Exam - ENT Neurologic mood and affect Overall: normal mood 06/15/2016 None Full Exam - ENT Neurologic mood and affect Overall: normal affect 06/15/2016 None Full Exam - ENT Neurologic orientation Overall: oriented to person, place and time 06/15/2016 None Full Exam - General 1994 Constitutional general appearance Development: well developed 06/05/2016 None Full Exam - General 1994 Constitutional general appearance Development: appears stated age 0306/05/2016 None Full Exam - General 1994 Eyes conjunctiva /eyelids Overall: conjunctiva clear 06/05/2016 None Full Exam - General 1994 Eyes conjunctiva /eyelids Overall: cornea clear 06/05/2016 None Full Exam - General 1994 Eyes conjunctiva /eyelids Overall: eyelids normal 06/05/2016 None Full Exam - General 1994 Eyes pupils and irises Overall: pupils equal, round, reactive to light and accomodation 06/05/2016 None Full Exam - General 1994 Ears/Nose/Throat otoscopic exam Overall: external auditory canals clear 06/05/2016 None Full Exam - General 1994 Ears/Nose/Throat otoscopic exam Overall: tympanic membranes clear 06/05/2016 None Full Exam - General 1994 Ears/Nose/Throat oral cavity/pharynx/larynx Overall: oral mucosa clear 06/05/2016 None Full Exam - General 1994 Neck inspection of neck Overall: normal size 06/05/2016 None Full Exam - General 1994 Neck inspection of neck Overall: normal appearance 06/05/2016 None Full Exam - General 1994 Respiratory auscultation Overall: breath sounds clear bilaterally 06/05/2016 None Full Exam - General 1994 Respiratory respiratory effort/rhythm Overall: no retractions 06/05/2016 None Full Exam - General 1994 Respiratory respiratory effort/rhythm Overall: normal rate 06/05/2016 None Full Exam - General 1994 Cardiovascular auscultation of heart Overall: regular rate 06/05/2016 None Full Exam - General 1994 Cardiovascular auscultation of heart Overall: normal heart sounds 06/05/2016 None Full Exam - General 1994 Cardiovascular auscultation of heart Overall: no murmurs 06/05/2016 None Full Exam - General 1994 Abdomen abdominal exam Overall: no tenderness 06/05/2016 None Full Exam - General 1994 Abdomen abdominal exam Overall: normal bowel sounds 06/05/2016 None Full Exam - General 1994 Lymphatic neck nodes Overall: anterior cervical chain benign 06/05/2016 None Full Exam - General 1994 Lymphatic neck nodes Overall: posterior cervical chain benign 06/05/2016 None Full Exam - General 1994 Musculoskeletal gait and station Overall: normal gait 06/05/2016 None Full Exam - General 1994 Musculoskeletal gait and station Overall: normal station 06/05/2016 None Full Exam - General 1994 Musculoskeletal head and neck Overall: head atraumatic 06/05/2016 None Full Exam - General 1994 Musculoskeletal head and neck Overall: TMJ benign 06/05/2016 None Full Exam - General 1994 Integument inspection of skin Overall: few scattered moles, no gross abnormalities 06/05/2016 None Full Exam - General 1994 Neurologic mental status Overall: alert 06/05/2016 None Full Exam - General 1994 Neurologic mental status Overall: oriented 06/05/2016 None Full Exam - General 1994 Neurologic gait Overall: no ataxia, no unsteadiness 06/05/2016 None Full Exam - General 1994 Neurologic motor Overall: normal bulk, tone 06/05/2016 None Full Exam - General 1994 Psychiatric orientation/consciousness Overall: oriented to person, place and time 06/05/2016 None Full Exam - General 1994 Psychiatric mood and affect Overall: normal mood and affect 06/05/2016 None Full Exam - General 1994 Psychiatric speech Overall: normal quality, no aphasia 06/05/2016 None Full Exam - General 1994 Constitutional general appearance Development: well developed 06/01/2016 None Full Exam - General 1994 Constitutional general appearance Development: appears stated age 0206/01/2016 None Full Exam - General 1994 Eyes conjunctiva /eyelids Overall: cornea clear 06/01/2016 None Full Exam - General 1994 Eyes conjunctiva /eyelids Overall: conjunctiva clear 06/01/2016 None Full Exam - General 1994 Eyes conjunctiva /eyelids Overall: eyelids normal 06/01/2016 None Full Exam - General 1994 Eyes pupils and irises Overall: pupils equal, round, reactive to light and accomodation 06/01/2016 None Full Exam - General 1994 Ears/Nose/Throat otoscopic exam Overall: external auditory canals clear 06/01/2016 None Full Exam - General 1994 Ears/Nose/Throat otoscopic exam Overall: tympanic membranes clear 06/01/2016 None Full Exam - General 1994 Ears/Nose/Throat oral cavity/pharynx/larynx Overall: oral mucosa clear 06/01/2016 None Full Exam - General 1994 Neck inspection of neck Overall: normal size 06/01/2016 None Full Exam - General 1994 Neck inspection of neck Overall: normal appearance 06/01/2016 None Full Exam - General 1994 Respiratory auscultation Overall: breath sounds clear bilaterally 06/01/2016 None Full Exam - General 1994 Respiratory respiratory effort/rhythm Overall: no retractions 06/01/2016 None Full Exam - General 1994 Respiratory respiratory effort/rhythm Overall: normal rate 06/01/2016 None Full Exam - General 1994 Cardiovascular auscultation of heart Overall: regular rate 06/01/2016 None Full Exam - General 1994 Cardiovascular auscultation of heart Overall: normal heart sounds 06/01/2016 None Full Exam - General 1994 Cardiovascular auscultation of heart Overall: no murmurs 06/01/2016 None Full Exam - General 1994 Abdomen abdominal exam Overall: no tenderness 06/01/2016 None Full Exam - General 1994 Abdomen abdominal exam Overall: normal bowel sounds 06/01/2016 None Full Exam - General 1994 Lymphatic neck nodes Overall: anterior cervical chain benign 06/01/2016 None Full Exam - General 1994 Lymphatic neck nodes Overall: posterior cervical chain benign 06/01/2016 None Full Exam - General 1994 Musculoskeletal gait and station Overall: normal gait 06/01/2016 None Full Exam - General 1994 Musculoskeletal gait and station Overall: normal station 06/01/2016 None Full Exam - General 1994 Musculoskeletal head and neck Overall: head atraumatic 06/01/2016 None Full Exam - General 1994 Musculoskeletal head and neck Overall: TMJ benign 06/01/2016 None Full Exam - General 1994 Integument inspection of skin Overall: few scattered moles, no gross abnormalities 06/01/2016 None Full Exam - General 1994 Neurologic mental status Overall: alert 06/01/2016 None Full Exam - General 1994 Neurologic mental status Overall: oriented 06/01/2016 None Full Exam - General 1994 Neurologic gait Overall: no ataxia, no unsteadiness 06/01/2016 None Full Exam - General 1994 Neurologic motor Overall: normal bulk, tone 06/01/2016 None Full Exam - General 1994 Psychiatric orientation/consciousness Overall: oriented to person, place and time 06/01/2016 None Full Exam - General 1994 Psychiatric mood and affect Overall: normal mood and affect 06/01/2016 None Full Exam - General 1994 Psychiatric speech Overall: normal quality, no aphasia 06/01/2016 None Full Exam - General 1994 Constitutional general appearance Development: well developed 05/28/2016 None Full Exam - General 1994 Constitutional general appearance Development: appears stated age 0205/28/2016 None Full Exam - General 1994 Eyes conjunctiva /eyelids Overall: conjunctiva clear 05/28/2016 None Full Exam - General 1994 Eyes conjunctiva /eyelids Overall: cornea clear 05/28/2016 None Full Exam - General 1994 Eyes conjunctiva /eyelids Overall: eyelids normal 05/28/2016 None Full Exam - General 1994 Eyes pupils and irises Overall: pupils equal, round, reactive to light and accomodation 05/28/2016 None Full Exam - General 1994 Ears/Nose/Throat otoscopic exam Overall: external auditory canals clear 05/28/2016 None Full Exam - General 1994 Ears/Nose/Throat otoscopic exam Overall: tympanic membranes clear 05/28/2016 None Full Exam - General 1994 Ears/Nose/Throat oral cavity/pharynx/larynx Overall: oral mucosa clear 05/28/2016 None Full Exam - General 1994 Respiratory auscultation Overall: breath sounds clear bilaterally 05/28/2016 None Full Exam - General 1994 Respiratory respiratory effort/rhythm Overall: no retractions 05/28/2016 None Full Exam - General 1994 Respiratory respiratory effort/rhythm Overall: normal rate 05/28/2016 None Full Exam - General 1994 Cardiovascular auscultation of heart Overall: regular rate 05/28/2016 None Full Exam - General 1994 Cardiovascular auscultation of heart Overall: normal heart sounds 05/28/2016 None Full Exam - General 1994 Cardiovascular auscultation of heart Overall: no murmurs 05/28/2016 None Full Exam - General 1994 Abdomen abdominal exam Overall: no tenderness 05/28/2016 None Full Exam - General 1994 Abdomen abdominal exam Overall: normal bowel sounds 05/28/2016 None Full Exam - General 1994 Lymphatic neck nodes Overall: anterior cervical chain benign 05/28/2016 None Full Exam - General 1994 Lymphatic neck nodes Overall: posterior cervical chain benign 05/28/2016 None Full Exam - General 1994 Musculoskeletal gait and station Overall: normal gait 05/28/2016 None Full Exam - General 1994 Musculoskeletal gait and station Overall: normal station 05/28/2016 None Full Exam - General 1994 Musculoskeletal head and neck Overall: head atraumatic 05/28/2016 None Full Exam - General 1994 Musculoskeletal head and neck Overall: TMJ benign 05/28/2016 None Full Exam - General 1994 Integument inspection of skin Overall: few scattered moles, no gross abnormalities 05/28/2016 None Full Exam - General 1994 Neurologic mental status Overall: alert 05/28/2016 None Full Exam - General 1994 Neurologic mental status Overall: oriented 05/28/2016 None Full Exam - General 1994 Neurologic gait Overall: no ataxia, no unsteadiness 05/28/2016 None Full Exam - General 1994 Psychiatric orientation/consciousness Overall: oriented to person, place and time 05/28/2016 None Full Exam - General 1994 Psychiatric mood and affect Overall: normal mood and affect 05/28/2016 None Full Exam - General 1994 Psychiatric speech Overall: normal quality, no aphasia 05/28/2016 None Full Exam - Dermatology Constitutional general appearance Overall: well nourished 05/11/2016 None Full Exam - Dermatology Constitutional general appearance Overall: well developed 05/11/2016 None Full Exam - Dermatology Constitutional general appearance Overall: in no acute distress 05/11/2016 None Full Exam - Dermatology Eyes conjunctiva/ eyelids Overall: clear conjunctiva bilaterally 05/11/2016 None Full Exam - Dermatology Eyes conjunctiva/ eyelids Overall: clear corneas 05/11/2016 None Full Exam - Dermatology Eyes conjunctiva/ eyelids Overall: normal eyelids 05/11/2016 None Full Exam - Dermatology Integument insp & palp - right lower extremity Color: yellow 05/11/2016 None Full Exam - Dermatology Integument insp & palp - right lower extremity Appearance: thick 05/11/2016 None Full Exam - Dermatology Neurologic mental status Overall: alert 05/11/2016 None Full Exam - Dermatology Neurologic mental status Overall: oriented 05/11/2016 None Full Exam - Dermatology Neurologic speech Overall: normal quality, no aphasia 05/11/2016 None Full Exam - Dermatology Psychiatric orientation Overall: oriented to person, place and time 05/11/2016 None Full Exam - Dermatology Psychiatric mood and affect Overall: normal mood and affect 05/11/2016 None Full Exam - Dermatology Integument insp & palp - right lower extremity Location: on the toes 05/11/2016 LEFT GREAT TOE Full Exam - Dermatology Musculoskeletal digits and nails Nails: onycholysis 05/11/2016 LEFT GREAT TOE Full Exam - General 1994 Constitutional general appearance Development: well developed 04/30/2016 None Full Exam - General 1994 Constitutional general appearance Development: appears stated age 0104/30/2016 None Full Exam - General 1994 Constitutional general appearance Hygiene/Attention to Grooming: good hygiene 04/30/2016 None Full Exam - General 1994 Eyes conjunctiva /eyelids Overall: conjunctiva clear 04/30/2016 None Full Exam - General 1994 Eyes conjunctiva /eyelids Overall: cornea clear 04/30/2016 None Full Exam - General 1994 Eyes conjunctiva /eyelids Overall: eyelids normal 04/30/2016 None Full Exam - General 1994 Eyes pupils and irises Overall: pupils equal, round, reactive to light and accomodation 04/30/2016 None Full Exam - General 1994 Ears/Nose/Throat otoscopic exam Overall: external auditory canals clear 04/30/2016 None Full Exam - General 1994 Ears/Nose/Throat otoscopic exam Overall: tympanic membranes clear 04/30/2016 None Full Exam - General 1994 Ears/Nose/Throat lips/teeth/gingiva Overall: benign lips 04/30/2016 None Full Exam - General 1995 Ears/Nose/Throat lips/teeth/gingiva Overall: normal dentition 04/30/2016 None Full Exam - General 1994 Ears/Nose/Throat oral cavity/pharynx/larynx Overall: oral mucosa clear 04/30/2016 None Full Exam - General 1994 Ears/Nose/Throat oral cavity/pharynx/larynx Overall: oropharyngeal mucosa clear 04/30/2016 None Full Exam - General 1994 Ears/Nose/Throat oral cavity/pharynx/larynx Overall: hypopharynx benign 04/30/2016 None Full Exam - General 1994 Ears/Nose/Throat oral cavity/pharynx/larynx Overall: no masses 04/30/2016 None Full Exam - General 1994 Respiratory auscultation Overall: breath sounds clear bilaterally 04/30/2016 None Full Exam - General 1994 Respiratory respiratory effort/rhythm Overall: no retractions 04/30/2016 None Full Exam - General 1994 Respiratory respiratory effort/rhythm Overall: normal rate 04/30/2016 None Full Exam - General 1994 Cardiovascular extremities Overall: no clubbing 04/30/2016 None Full Exam - General 1994 Cardiovascular auscultation of heart Overall: regular rate 04/30/2016 None Full Exam - General 1994 Cardiovascular auscultation of heart Overall: normal heart sounds 04/30/2016 None Full Exam - General 1994 Abdomen abdominal exam Overall: no tenderness 04/30/2016 None Full Exam - General 1994 Abdomen abdominal exam Overall: normal bowel sounds 04/30/2016 None Full Exam - General 1994 Lymphatic neck nodes Overall: anterior cervical chain benign 04/30/2016 None Full Exam - General 1994 Lymphatic neck nodes Overall: posterior cervical chain benign 04/30/2016 None Full Exam - General 1994 Musculoskeletal spine, ribs and pelvis Overall: spine benign 04/30/2016 None Full Exam - General 1994 Musculoskeletal spine, ribs and pelvis Overall: sacroiliac joint benign 04/30/2016 None Full Exam - General 1994 Musculoskeletal spine, ribs and pelvis Overall: good posture 04/30/2016 None Full Exam - General 1994 Musculoskeletal head and neck Overall: head atraumatic 04/30/2016 None Full Exam - General 1994 Musculoskeletal head and neck Overall: cervical spine benign 04/30/2016 None Full Exam - General 1994 Integument inspection of skin Overall: few scattered moles, no gross abnormalities 04/30/2016 None Full Exam - General 1994 Neurologic deep tendon reflexes Overall: deep tendon reflexes intact 04/30/2016 None Full Exam - General 1994 Neurologic cranial nerves Overall: crainial nerves 2 - 12 grossly intact 04/30/2016 None Full Exam - General 1994 Psychiatric orientation/consciousness Overall: oriented to person, place and time 04/30/2016 None Full Exam - General 1994 Psychiatric mood and affect Overall: normal mood and affect 04/30/2016 None Procedures Procedure Codes Date URINALYSIS NONAUTO W/O SCOPE CPT-4: 87171 04/01/2017 URINALYSIS NONAUTO W/O SCOPE CPT-4: 83410 03/05/2017 FLU VACC PRSV FREE INC ANTIG CPT-4: 19637 12/18/2016 ADMIN INFLUENZA VIRUS VAC CPT-4: G0008 12/18/2016 URINALYSIS NONAUTO W/O SCOPE CPT-4: 75875 11/26/2016 URINALYSIS NONAUTO W/O SCOPE CPT-4: 66030 11/06/2016 URINALYSIS NONAUTO W/O SCOPE CPT-4: 13163 10/16/2016 TRIAMCINOLONE ACET INJ NOS CPT-4: J3301 10/08/2016 URINALYSIS NONAUTO W/O SCOPE CPT-4: 32729 09/03/2016 URINALYSIS NONAUTO W/O SCOPE CPT-4: 50271 08/24/2016 URINALYSIS NONAUTO W/O SCOPE CPT-4: 25665 08/06/2016 THER/PROPH/DIAG INJ SC/IM CPT-4: 55265 07/14/2016 VITAMIN B12 INJECTION CPT-4: J3420 07/14/2016 URINALYSIS NONAUTO W/O SCOPE CPT-4: 36142 07/03/2016 THER/PROPH/DIAG INJ SC/IM CPT-4: 03513 06/26/2016 ROCEPHIN, PER 250 MG CPT-4: J0696 06/26/2016 URINALYSIS NONAUTO W/O SCOPE CPT-4: 03183 06/23/2016 URINALYSIS NONAUTO W/O SCOPE CPT-4: 58396 06/11/2016 URINALYSIS NONAUTO W/O SCOPE CPT-4: 14357 05/28/2016 THER/PROPH/DIAG INJ SC/IM CPT-4: 48460 05/28/2016 ROCEPHIN, PER 250 MG CPT-4: J0696 05/28/2016 REMOVAL OF IMPACTED WAX CPT-4: G0268 05/06/2016 Vital Signs Date Vital 03/19/2017 Blood Pressure 1: 144/76 Code : 8480-6 BMI: 26.3 Code : 98554-2 Heart Rate 1 : 102 bpm Height: 5'4" SpO2: 98% Temperature: 36.8 (C) / 98.3 (F) Weight: 153 lbs 03/08/2017 Blood Pressure 1: 136/80 Code : 8480-6 BMI: 26.9 Code : 45958-7 Heart Rate 1 : 76 bpm Height: 5'4" SpO2: 96% Weight: 157 lbs 02/02/2017 Blood Pressure 1: 148/68 Code : 8480-6 BMI: 26.9 Code : 34832-7 Heart Rate 1 : 76 bpm Height: 5'4" SpO2: 97% Weight: 157 lbs 01/15/2017 Blood Pressure 1: 142/76 Code : 8480-6 BMI: 26.9 Code : 17572-6 Heart Rate 1 : 86 bpm Height: 5'4" SpO2: 97% Weight: 157 lbs 12/30/2016 Blood Pressure 1: 140/76 Code : 8480-6 BMI: 26.9 Code : 32988-9 Heart Rate 1 : 84 bpm Height: 5'4" SpO2: 97% Weight: 157 lbs 12/22/2016 Blood Pressure 1: 130/78 Code : 8480-6 BMI: 26.9 Code : 97225-3 Heart Rate 1 : 80 bpm Height: 5'4" SpO2: 97% Weight: 157 lbs 12/18/2016 BMI: 26.9 Code: 41646-8 Height: 5'4" Weight: 157 lbs 11/20/2016 Blood Pressure 1: 134/60 Code : 8480-6 BMI: 25.9 Code : 07389-4 Heart Rate 1 : 80 bpm Height: 5'4" SpO2: 97% Weight: 151 lbs 11/16/2016 BMI: 25.6 Code: 95986-4 Heart Rate 1: 74 bpm Height: 5'4" SpO2: 97% Weight: 149 lbs 10/28/2016 Blood Pressure 1: 128/70 Code : 8480-6 BMI: 25.7 Code : 83271-3 Heart Rate 1 : 70 bpm Height: 5'4" SpO2: 96% Weight: 150 lbs 10/13/2016 Blood Pressure 1: 130/78 Code : 8480-6 Heart Rate 1: 69 bpm Height: 5'4" SpO2: 98% 10/08/2016 Blood Pressure 1: 122/70 Code : 8480-6 BMI: 25.6 Code : 48959-4 Heart Rate 1 : 79 bpm Height: 5'4" SpO2: 97% Temperature: 37.0 (C) / 98.6 (F) Weight: 149 lbs 09/29/2016 Blood Pressure 1: 124/70 Code : 8480-6 BMI: 25.4 Code : 55426-5 Heart Rate 1 : 74 bpm Height: 5'4" SpO2: 94% Weight: 148 lbs 09/03/2016 Blood Pressure 1: 120/68 Code : 8480-6 BMI: 24.7 Code : 21616-9 Heart Rate 1 : 59 bpm Height: 5'4" SpO2: 97% Weight: 144 lbs 08/24/2016 Blood Pressure 1: 128/74 Code : 8480-6 BMI: 24.7 Code : 01872-9 Heart Rate 1 : 75 bpm Height: 5'4" SpO2: 97% Weight: 144 lbs 08/11/2016 Blood Pressure 1: 142/76 Code : 8480-6 BMI: 24.9 Code : 62846-3 Heart Rate 1 : 77 bpm Height: 5'4" SpO2: 96% Weight: 145 lbs 08/03/2016 Blood Pressure 1: 142/78 Code : 8480-6 BMI: 25.1 Code : 36619-9 Heart Rate 1 : 75 bpm Height: 5'4" SpO2: 97% Temperature: 36.9 (C) / 98.5 (F) Weight: 146 lbs 07/27/2016 Blood Pressure 1: 158/80 Code : 8480-6 BMI: 25.1 Code : 30419-7 Heart Rate 1 : 72 bpm Height: 5'4" SpO2: 98% Weight: 146 lbs 07/21/2016 Blood Pressure 1: 144/76 Code : 8480-6 BMI: 25.1 Code : 17481-5 Heart Rate 1 : 80 bpm Height: 5'4" SpO2: 94% Temperature: 37.3 (C) / 99.2 (F) Weight: 146 lbs 07/14/2016 Blood Pressure 1: 128/74 Code : 8480-6 BMI: 25.1 Code : 64642-1 Heart Rate 1 : 79 bpm Height: 5'4" SpO2: 97% Temperature: 37.2 (C) / 98.9 (F) Weight: 146 lbs 8 oz 07/10/2016 Blood Pressure 1: 148/78 Code : 8480-6 BMI: 25.1 Code : 19785-8 Heart Rate 1 : 82 bpm Height: 5'4" SpO2: 96% Temperature: 37.2 (C) / 99.0 (F) Weight: 146 lbs 8 oz 07/03/2016 Blood Pressure 1: 134/76 Code : 8480-6 Heart Rate 1: 79 bpm Height: 5'4" SpO2: 98% Temperature: 36.9 (C) / 98.4 (F) 06/30/2016 Blood Pressure 1: 138/78 Code : 8480-6 BMI: 25.1 Code : 20554-8 Heart Rate 1 : 90 bpm Height: 5'4" SpO2: 97% Weight: 146 lbs 06/23/2016 Blood Pressure 1: 132/58 Code : 8480-6 BMI: 25.7 Code : 65196-4 Heart Rate 1 : 85 bpm Height: 5'4" SpO2: 97% Weight: 150 lbs 06/15/2016 Blood Pressure 1: 134/62 Code : 8480-6 BMI: 26.4 Code : 17505-6 Heart Rate 1 : 75 bpm Height: 5'4" SpO2: 95% Weight: 154 lbs 06/05/2016 Blood Pressure 1: 156/80 Code : 8480-6 BMI: 26.4 Code : 17337-9 Heart Rate 1 : 92 bpm Height: 5'4" SpO2: 98% Weight: 154 lbs 06/01/2016 Blood Pressure 1: 135/80 Code : 8480-6 Heart Rate 1: 95 bpm SpO2: 97% Temperature: 37.1 (C) / 98.8 (F) 05/28/2016 Blood Pressure 1: 140/80 Code : 8480-6 BMI: 26.1 Code : 14646-7 Heart Rate 1 : 89 bpm Height: 5'4" SpO2: 96% Weight: 152 lbs 05/11/2016 Blood Pressure 1: 154/86 Code : 8480-6 Heart Rate 1: 89 bpm Height: 5'4" SpO2: 95% Weight: 04/30/2016 Blood Pressure 1: 142/72 Code : 8480-6 BMI: 26.3 Code : 57116-4 Heart Rate 1 : 87 bpm Height: 5'4" SpO2: 97% Weight: 153 lbs Functional Status No Functional Status data History of Present Illness Symptom Name Status Result Effective Date Notes fatigue Frequency of Episodes daily 03/19/2017 None fatigue Pertinent Findings Denies chills 03/19/2017 None fatigue Pertinent Findings Denies cough 03/19/2017 None fatigue Pertinent Findings Denies fever 03/19/2017 None abdominal pain Location in the LLQ 03/08/2017 None abdominal pain Quality intermittent 03/08/2017 None abdominal pain Quality cramping 03/08/2017 None abdominal pain Onset and Resolution sudden in onset 03/08/2017 None abdominal pain Onset of Symptom 2 days ago 03/08/2017 None urinary frequency Quality constant 02/02/2017 None urinary frequency Onset and Resolution sudden in onset 02/02/2017 None urinary frequency Onset of Symptom 1 weeks ago 02/02/2017 None urinary frequency Onset and Resolution resolved 02/02/2017 None dysuria Quality improving 01/15/2017 None dysuria Onset and Resolution ongoing 01/15/2017 None dysuria Pertinent Findings Denies bladder pain 01/15/2017 None dysuria Pertinent Findings Denies pelvic pain 01/15/2017 None rash Location-Major on the upper body 12/30/2016 None urinary urgency Quality constant 12/30/2016 None urinary urgency Onset and Resolution sudden in onset 12/30/2016 None urinary urgency Onset of Symptom 3 days ago 12/30/2016 None urinary urgency Pertinent Findings bladder pain 12/30/2016 None urinary urgency Pertinent Findings nocturia 12/30/2016 None edema Onset and Resolution worse during the day 12/22/2016 None edema Limitation on Activities does not limit activities 12/22/2016 None edema Pertinent Findings Denies dyspnea 12/22/2016 None edema Pertinent Findings Denies nausea 12/22/2016 None varicose veins Quality chronic 12/22/2016 None varicose veins Quality worsening 12/22/2016 None varicose veins Location on the left lower leg 12/22/2016 None varicose veins Onset and Resolution ongoing 12/22/2016 None varicose veins Pertinent Findings edema 12/22/2016 None varicose veins Pertinent Findings Denies erythema 12/22/2016 None varicose veins Pertinent Findings Denies tenderness 12/22/2016 None vaccination against influenza Location deltoid-Lt 12/18/2016 None vaccination against influenza Pertinent Findings Denies fever 12/18/2016 None edema Onset and Resolution worse during the day 12/18/2016 None edema Limitation on Activities does not limit activities 12/18/2016 None edema Pertinent Findings Denies dyspnea 12/18/2016 None edema Pertinent Findings Denies nausea 12/18/2016 None varicose veins Quality chronic 12/18/2016 None varicose veins Quality worsening 12/18/2016 None varicose veins Location on the left lower leg 12/18/2016 None varicose veins Onset and Resolution ongoing 12/18/2016 None varicose veins Pertinent Findings edema 12/18/2016 None varicose veins Pertinent Findings Denies erythema 12/18/2016 None varicose veins Pertinent Findings Denies tenderness 12/18/2016 None edema Onset of Symptom 3 days ago 11/20/2016 None edema Limitation on Activities moderately limits activities 11/20/2016 None edema Frequency of Episodes daily 11/20/2016 None edema Triggers no known associated factors 11/20/2016 None edema Location on the left leg 11/20/2016 None edema Quality constant 11/20/2016 None dysuria Quality intermittent 11/16/2016 None dysuria Onset and Resolution ongoing 11/16/2016 None dysuria Pertinent Findings Denies fever 11/16/2016 None dysuria Pertinent Findings bladder pain 11/16/2016 None dysuria Pertinent Findings pelvic pain 11/16/2016 None dysuria Pertinent Findings urinary urgency 11/16/2016 None dysuria Quality improving 10/28/2016 None dysuria Onset and Resolution ongoing 10/28/2016 None dysuria Pertinent Findings Denies bladder pain 10/28/2016 None dysuria Pertinent Findings Denies pelvic pain 10/28/2016 None abdominal pain Location in the periumbilical area 10/13/2016 None abdominal pain Quality aching 10/13/2016 None abdominal pain Onset and Resolution sudden in onset 10/13/2016 None abdominal pain Onset of Symptom 4 days ago 10/13/2016 None abdominal pain Pertinent Findings Denies abdominal distension 10/13/2016 None abdominal pain Pertinent Findings Denies bloating 10/13/2016 None abdominal pain Alleviating Factors medication 10/13/2016 pepto bismul abdominal pain Pertinent Findings Denies emesis 10/13/2016 None abdominal pain Pertinent Findings nausea 10/13/2016 None sore throat Location on both sides 10/13/2016 None sore throat Onset and Resolution sudden in onset 10/13/2016 None sore throat Quality aching 10/13/2016 None sore throat Pertinent Findings decreased energy level 10/13/2016 None sore throat Pertinent Findings poor feeding 10/13/2016 None sore throat Pertinent Findings Denies vomiting 10/13/2016 None nausea Onset of Symptom 4 days ago 10/13/2016 None nausea Severity moderate 10/13/2016 None nausea Pertinent Findings Denies bloating 10/13/2016 None nausea Pertinent Findings Denies emesis 10/13/2016 None nausea Onset and Resolution sudden in onset 10/13/2016 None rash Location-Major in a generalized area 10/08/2016 None rash Location-Major on the upper body 10/08/2016 None rash Location-Major on the chest 10/08/2016 None rash Location-Major on the back 10/08/2016 None rash Location-Major on the abdomen 10/08/2016 None rash Location-Major on the arms 10/08/2016 None rash Color pink 2016 None rash Onset and Resolution sudden in onset 10/08/2016 None rash Onset of Symptom 1 days ago 10/08/2016 None rash Severity moderate 10/08/2016 None rash Triggers no known triggers 10/08/2016 None rash Alleviating Factors no alleviating factors 10/08/2016 None rash Pertinent Findings Denies history of exposure 10/08/2016 None rash Pertinent Findings Denies history of insect bite 10/08/2016 None rash Pertinent Findings Denies history of similar rash 10/08/2016 None rash Pertinent Findings Denies history of travel 10/08/2016 None rash Pertinent Findings itching 10/08/2016 None rash Pertinent Findings Denies muscle pain 10/08/2016 None rash Pertinent Findings Denies pain 10/08/2016 None rash Quality acute 09/2016 None rash Frequency of Episodes increasing 10/08/2016 None rash Prior Treatments previously untreated 10/08/2016 None nausea Onset and Resolution gradual in onset 09/29/2016 None nausea Onset of Symptom 1 weeks ago 09/29/2016 None nausea Pertinent Findings Denies fever 09/29/2016 None nausea Pertinent Findings Denies dyspepsia 09/29/2016 None spasms/spasticity Location on both hands 09/29/2016 None spasms/spasticity Quality constant 09/29/2016 None spasms/spasticity Onset and Resolution sudden in onset 09/29/2016 None spasms/spasticity Onset of Symptom 4-6 weeks ago 09/29/2016 None spasms/spasticity Pertinent Findings Denies neck pain 09/29/2016 None spasms/spasticity Pertinent Findings Denies mental status change 09/29/2016 None dysuria Quality chronic 09/03/2016 None dysuria Quality intermittent 09/03/2016 None dysuria Onset and Resolution ongoing 09/03/2016 None dysuria Triggers no known associated factors 09/03/2016 None oral pain Quality acute 09/03/2016 None oral pain Triggers no known associated factors 09/03/2016 None depression Onset and Resolution ongoing 08/24/2016 None depression Onset of Symptom months ago 08/24/2016 None depression Triggers stress 08/24/2016 None depression Pertinent Findings anxiety 08/24/2016 None depression Pertinent Findings depressed mood 08/24/2016 None depression Pertinent Findings helplessness 08/24/2016 None depression Pertinent Findings hopelessness 08/24/2016 None depression Pertinent Findings loss of interest in activities 08/24/2016 None dysuria Quality acute 08/24/2016 None dysuria Quality burning 08/24/2016 None dysuria Pertinent Findings bladder pain 08/24/2016 None dysuria Pertinent Findings nausea 08/24/2016 None dysuria Pertinent Findings pelvic pain 08/24/2016 None dysuria Onset of Symptom 2 days ago 08/24/2016 None dysuria Quality acute 08/11/2016 None dysuria Quality burning 08/11/2016 None dysuria Quality intermittent 08/11/2016 None dysuria Onset and Resolution ongoing 08/11/2016 None dysuria Onset of Symptom _ weeks ago 08/11/2016 None dysuria Limitation on Activities does not limit urination 08/11/2016 None dysuria Frequency of Episodes unchanged 08/11/2016 None dysuria Significant Medical Conditions recurrent urinary tract infections 08/11/2016 None dysuria Alleviating Factors medication 08/11/2016 None dysuria Pertinent Findings bladder pain 08/11/2016 None dysuria Pertinent Findings Denies fever 08/11/2016 None dysuria Pertinent Findings Denies lightheadedness 08/11/2016 None dysuria Pertinent Findings Denies nausea 08/11/2016 None dysuria Pertinent Findings pelvic pain 08/11/2016 None dysuria Pertinent Findings urinary urgency 08/11/2016 None dysuria Pertinent Findings Denies vomiting 08/11/2016 None depression Quality acute 08/03/2016 None depression Onset and Resolution ongoing 08/03/2016 None depression Onset of Symptom _ months ago 08/03/2016 None depression Limitation on Activities moderately limits activities 08/03/2016 None depression Frequency of Episodes increasing 08/03/2016 None depression Triggers stress 08/03/2016 None depression Pertinent Findings anxiety 08/03/2016 None depression Pertinent Findings depressed mood 08/03/2016 None depression Pertinent Findings helplessness 08/03/2016 None depression Pertinent Findings hopelessness 08/03/2016 None depression Pertinent Findings loss of interest in activities 08/03/2016 None dysuria Quality acute 08/03/2016 None dysuria Quality burning 08/03/2016 None dysuria Quality intermittent 08/03/2016 None dysuria Onset and Resolution ongoing 08/03/2016 None dysuria Onset of Symptom _ weeks ago 08/03/2016 None dysuria Limitation on Activities does not limit urination 08/03/2016 None dysuria Frequency of Episodes unchanged 08/03/2016 None dysuria Significant Medical Conditions recurrent urinary tract infections 08/03/2016 None dysuria Alleviating Factors medication 08/03/2016 None dysuria Pertinent Findings bladder pain 08/03/2016 None dysuria Pertinent Findings Denies fever 08/03/2016 None dysuria Pertinent Findings Denies lightheadedness 08/03/2016 None dysuria Pertinent Findings Denies nausea 08/03/2016 None dysuria Pertinent Findings pelvic pain 08/03/2016 None dysuria Pertinent Findings urinary urgency 08/03/2016 None dysuria Pertinent Findings Denies vomiting 08/03/2016 None dysuria Quality acute 07/27/2016 None dysuria Quality burning 07/27/2016 None dysuria Quality intermittent 07/27/2016 None dysuria Onset and Resolution ongoing 07/27/2016 None dysuria Onset of Symptom _ weeks ago 07/27/2016 None dysuria Limitation on Activities does not limit urination 07/27/2016 None dysuria Frequency of Episodes unchanged 07/27/2016 None dysuria Significant Medical Conditions recurrent urinary tract infections 07/27/2016 None dysuria Alleviating Factors medication 07/27/2016 None dysuria Pertinent Findings bladder pain 07/27/2016 None dysuria Pertinent Findings Denies fever 07/27/2016 None dysuria Pertinent Findings Denies lightheadedness 07/27/2016 None dysuria Pertinent Findings Denies nausea 07/27/2016 None dysuria Pertinent Findings pelvic pain 07/27/2016 None dysuria Pertinent Findings urinary urgency 07/27/2016 None dysuria Pertinent Findings Denies vomiting 07/27/2016 None dysuria Quality acute 07/21/2016 None dysuria Quality burning 07/21/2016 None dysuria Quality intermittent 07/21/2016 None dysuria Onset and Resolution ongoing 07/21/2016 None dysuria Onset of Symptom _ weeks ago 07/21/2016 None dysuria Alleviating Factors medication 07/21/2016 None dysuria Pertinent Findings bladder pain 07/21/2016 None dysuria Pertinent Findings Denies fever 07/21/2016 None dysuria Pertinent Findings Denies lightheadedness 07/21/2016 None dysuria Pertinent Findings Denies nausea 07/21/2016 None dysuria Pertinent Findings pelvic pain 07/21/2016 None dysuria Pertinent Findings urinary urgency 07/21/2016 None dysuria Pertinent Findings Denies vomiting 07/21/2016 None dysuria Limitation on Activities does not limit urination 07/21/2016 None dysuria Frequency of Episodes unchanged 07/21/2016 None dysuria Significant Medical Conditions recurrent urinary tract infections 07/21/2016 None depression Quality acute 07/14/2016 None depression Onset and Resolution ongoing 07/14/2016 None depression Onset of Symptom _ months ago 07/14/2016 None depression Limitation on Activities moderately limits activities 07/14/2016 None depression Frequency of Episodes increasing 07/14/2016 None depression Triggers stress 07/14/2016 None depression Pertinent Findings anxiety 07/14/2016 None depression Pertinent Findings depressed mood 07/14/2016 None depression Pertinent Findings helplessness 07/14/2016 None depression Pertinent Findings hopelessness 07/14/2016 None depression Pertinent Findings loss of interest in activities 07/14/2016 None dysuria Quality acute 07/14/2016 None dysuria Quality burning 07/14/2016 None dysuria Quality intermittent 07/14/2016 None dysuria Onset and Resolution ongoing 07/14/2016 None dysuria Onset of Symptom _ weeks ago 07/14/2016 None dysuria Alleviating Factors medication 07/14/2016 None dysuria Pertinent Findings bladder pain 07/14/2016 None dysuria Pertinent Findings Denies fever 07/14/2016 None dysuria Pertinent Findings Denies lightheadedness 07/14/2016 None dysuria Pertinent Findings Denies nausea 07/14/2016 None dysuria Pertinent Findings pelvic pain 07/14/2016 None dysuria Pertinent Findings urinary urgency 07/14/2016 None dysuria Pertinent Findings Denies vomiting 07/14/2016 None sore throat Location in the posterior pharyngeal area 07/14/2016 None sore throat Location on the left 07/14/2016 None sore throat Quality acute 07/14/2016 None sore throat Quality intermittent 07/14/2016 None sore throat Quality scratchy 07/14/2016 None sore throat Onset and Resolution ongoing 07/14/2016 None sore throat Significant Medications acetaminophen 07/14/2016 None sore throat Significant Medications ibuprofen 07/14/2016 None sore throat Significant Medications antibiotics 07/14/2016 None sore throat Triggers no known associated factors 07/14/2016 None sore throat Pertinent Findings decreased energy level 07/14/2016 None sore throat Pertinent Findings Denies fever 07/14/2016 None depression Quality acute 07/10/2016 None depression Onset and Resolution ongoing 07/10/2016 None depression Onset of Symptom _ months ago 07/10/2016 None depression Limitation on Activities moderately limits activities 07/10/2016 None depression Frequency of Episodes increasing 07/10/2016 None depression Triggers stress 07/10/2016 None depression Pertinent Findings anxiety 07/10/2016 None depression Pertinent Findings depressed mood 07/10/2016 None depression Pertinent Findings helplessness 07/10/2016 None depression Pertinent Findings hopelessness 07/10/2016 None depression Pertinent Findings loss of interest in activities 07/10/2016 None dysuria Quality acute 07/10/2016 None dysuria Quality burning 07/10/2016 None dysuria Quality intermittent 07/10/2016 None dysuria Onset and Resolution ongoing 07/10/2016 None dysuria Onset of Symptom _ weeks ago 07/10/2016 None dysuria Alleviating Factors medication 07/10/2016 None dysuria Pertinent Findings bladder pain 07/10/2016 None dysuria Pertinent Findings Denies fever 07/10/2016 None dysuria Pertinent Findings Denies lightheadedness 07/10/2016 None dysuria Pertinent Findings Denies nausea 07/10/2016 None dysuria Pertinent Findings pelvic pain 07/10/2016 None dysuria Pertinent Findings urinary urgency 07/10/2016 None dysuria Pertinent Findings Denies vomiting 07/10/2016 None depression Quality acute 07/03/2016 None depression Onset and Resolution ongoing 07/03/2016 None depression Pertinent Findings anxiety 07/03/2016 None depression Pertinent Findings depressed mood 07/03/2016 None depression Pertinent Findings helplessness 07/03/2016 None depression Pertinent Findings hopelessness 07/03/2016 None depression Pertinent Findings loss of interest in activities 07/03/2016 None dysuria Quality acute 07/03/2016 None dysuria Quality burning 07/03/2016 None dysuria Quality intermittent 07/03/2016 None dysuria Onset and Resolution ongoing 07/03/2016 None dysuria Onset of Symptom _ weeks ago 07/03/2016 None dysuria Alleviating Factors medication 07/03/2016 None dysuria Pertinent Findings bladder pain 07/03/2016 None dysuria Pertinent Findings Denies fever 07/03/2016 None dysuria Pertinent Findings urinary urgency 07/03/2016 None dysuria Pertinent Findings pelvic pain 07/03/2016 None dysuria Pertinent Findings Denies nausea 07/03/2016 None dysuria Pertinent Findings Denies vomiting 07/03/2016 None dysuria Pertinent Findings Denies lightheadedness 07/03/2016 None depression Onset of Symptom _ months ago 07/03/2016 None depression Limitation on Activities moderately limits activities 07/03/2016 None depression Frequency of Episodes increasing 07/03/2016 None depression Triggers stress 07/03/2016 None depression Quality acute 06/30/2016 None depression Onset and Resolution ongoing 06/30/2016 None depression Limitation on Activities moderately limits activities 06/30/2016 None depression Frequency of Episodes increasing 06/30/2016 None depression Triggers stress 06/30/2016 None depression Pertinent Findings anxiety 06/30/2016 None depression Pertinent Findings depressed mood 06/30/2016 None depression Pertinent Findings helplessness 06/30/2016 None depression Pertinent Findings hopelessness 06/30/2016 None depression Pertinent Findings loss of interest in activities 06/30/2016 None dysuria Quality acute 06/30/2016 None dysuria Quality burning 06/30/2016 None dysuria Quality intermittent 06/30/2016 None dysuria Onset and Resolution ongoing 06/30/2016 None dysuria Alleviating Factors medication 06/30/2016 None dysuria Pertinent Findings bladder pain 06/30/2016 None dysuria Pertinent Findings Denies fever 06/30/2016 None dysuria Pertinent Findings Denies lightheadedness 06/30/2016 None dysuria Pertinent Findings Denies nausea 06/30/2016 None dysuria Pertinent Findings pelvic pain 06/30/2016 None dysuria Pertinent Findings urinary urgency 06/30/2016 None dysuria Pertinent Findings Denies vomiting 06/30/2016 None hypertension Onset and Resolution ongoing 06/23/2016 None hypertension Onset of Symptom during adulthood 06/23/2016 None hypertension Blood Pressure Values patient checking blood pressure at home - did not bring in readings 06/23/2016 None hypertension Alleviating Factors medication 06/23/2016 None hypertension Pertinent Findings anxiety 06/23/2016 None hypertension Pertinent Findings Denies dizziness 06/23/2016 None hypertension Pertinent Findings Denies dyspnea 06/23/2016 None hypertension Pertinent Findings edema 06/23/2016 in both ankles depression Quality acute 06/23/2016 None depression Onset and Resolution ongoing 06/23/2016 None depression Pertinent Findings anxiety 06/23/2016 None nausea Onset of Symptom 5 days ago 06/15/2016 None nausea Frequency of Episodes daily 06/15/2016 None nausea Quality intermittent 06/15/2016 None nausea Onset and Resolution sudden in onset 06/15/2016 None hypertension Onset and Resolution ongoing 06/05/2016 None hypertension Onset of Symptom during adulthood 06/05/2016 None hypertension Blood Pressure Values patient checking blood pressure at home - did not bring in readings 06/05/2016 None hypertension Alleviating Factors medication 06/05/2016 None hypertension Pertinent Findings anxiety 06/05/2016 None hypertension Pertinent Findings Denies dizziness 06/05/2016 None hypertension Pertinent Findings Denies dyspnea 06/05/2016 None hypertension Pertinent Findings edema 06/05/2016 in both ankles depression Quality acute 06/05/2016 None depression Onset and Resolution ongoing 06/05/2016 None depression Pertinent Findings anxiety 06/05/2016 None dysuria Quality burning 06/05/2016 None dysuria Quality intermittent 06/05/2016 None dysuria Onset and Resolution ongoing 06/05/2016 None dysuria Quality acute 06/05/2016 None dysuria Onset of Symptom _ days ago 06/05/2016 None depression Pertinent Findings depressed mood 06/05/2016 None depression Pertinent Findings hopelessness 06/05/2016 None depression Pertinent Findings helplessness 06/05/2016 None depression Pertinent Findings loss of interest in activities 06/05/2016 None dysuria Quality acute 06/01/2016 None dysuria Onset and Resolution ongoing 06/01/2016 None dysuria Onset of Symptom _ days ago 06/01/2016 None diarrhea Quality acute 06/01/2016 None diarrhea Onset and Resolution ongoing 06/01/2016 None diarrhea Onset of Symptom _ days ago 06/01/2016 None diarrhea Limitation on Activities does not limit activities 06/01/2016 None diarrhea Frequency of Episodes increasing 06/01/2016 None hypertension Onset and Resolution ongoing 05/28/2016 None hypertension Onset of Symptom during adulthood 05/28/2016 None hypertension Blood Pressure Values patient checking blood pressure at home - did not bring in readings 05/28/2016 None hypertension Alleviating Factors medication 05/28/2016 None hypertension Pertinent Findings anxiety 05/28/2016 None hypertension Pertinent Findings Denies dizziness 05/28/2016 None hypertension Pertinent Findings Denies dyspnea 05/28/2016 None hypertension Pertinent Findings edema 05/28/2016 in both ankles dysuria Quality burning 05/28/2016 None dysuria Onset and Resolution ongoing 05/28/2016 None dysuria Quality intermittent 05/28/2016 None depression Quality acute 05/28/2016 None depression Onset and Resolution ongoing 05/28/2016 None depression Pertinent Findings anxiety 05/28/2016 None ingrown toenail Quality acute 05/11/2016 left ingrown toenail Onset of Symptom _ days ago 05/11/2016 None ingrown toenail Limitation on Activities does not limit activities 05/11/2016 None ingrown toenail Severity mild 05/11/2016 None ingrown toenail Mechanism of injury unknown 05/11/2016 None ingrown toenail Pertinent Findings Denies fever 05/11/2016 None ingrown toenail Pertinent Findings Denies purulent drainage 05/11/2016 None ingrown toenail Pertinent Findings redness 05/11/2016 None ingrown toenail Pertinent Findings Denies swelling 05/11/2016 None ingrown toenail Pertinent Findings Denies pain with movement 05/11/2016 None diarrhea Quality loose 04/30/2016 None diarrhea Quality intermittent 04/30/2016 None diarrhea Onset and Resolution ongoing 04/30/2016 None diarrhea Onset of Symptom 4 months ago 04/30/2016 None Advance Directives No Advance Directive data Encounters Encounter Performer Location Codes Date [id number] EST. PATIENT, LEVEL III Diagnosis: Dysuria[ICD10: R30.0] Diagnosis: Other malaise[ICD10: R53.81] Diagnosis: Other fatigue[ICD10: R53.83] Diagnosis: Generalized anxiety disorder[ICD10: F41.1] Meli Amador MD, [facility] CPT-4: 05976 03/19/2017 26983 EST. PATIENT, LEVEL III Diagnosis: Left lower quadrant pain[ICD10: R10.32] Meli Amador MD, [facility] CPT-4: 76717 03/08/2017 96497 EST. PATIENT, LEVEL III Diagnosis: Dysuria[ICD10: R30.0] Diagnosis: Generalized anxiety disorder[ICD10: F41.1] Meli Amador MD, [facility] CPT-4: 57597 02/02/2017 49866 EST. PATIENT, LEVEL III Diagnosis: Generalized anxiety disorder[ICD10: F41.1] Diagnosis: Urinary tract infection, site not specified[ICD10: N39.0] Meli Amador MD, [facility] CPT-4: 86509 01/15/2017 00464 EST. PATIENT, LEVEL IV Diagnosis: Dysuria[ICD10: R30.0] Diagnosis: Rash and other nonspecific skin eruption[ICD10: R21] Meli Amador MD, [facility] CPT-4: 80971 12/30/2016 06879 EST. PATIENT, LEVEL IV Diagnosis: Localized edema[ICD10: R60.0] Diagnosis: Pain in left lower leg[ICD10: M79.662] Diagnosis: Dysuria[ICD10: R30.0] Meli Amador MD, [facility] CPT-4: 33747 12/22/2016 84715 EST. PATIENT, LEVEL IV Diagnosis: 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[ICD10: I83.92] Diagnosis: Urinary tract infection, site not specified[ICD10: N39.0] Diagnosis: Encounter for immunization[ICD10: Z23] Meli Amador MD, [facility] CPT-4: 64419 12/18/2016 ([id number]) 39450 EST. PATIENT, LEVEL III Diagnosis: 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[ICD10: I83.92] Diagnosis: Urinary tract infection, site not specified[ICD10: N39.0] Josiane Amador MD , [facility] CPT-4: 54755 11/20/2016 01231 EST. PATIENT, LEVEL III Diagnosis: Dysuria[ICD10: R30.0] Meli Amador MD, [facility] CPT-4: 11798 11/16/2016 ([id number]) 13554 EST. PATIENT, LEVEL III Diagnosis: Generalized anxiety disorder[ICD10: F41.1] Diagnosis: Urinary tract infection, site not specified[ICD10: N39.0] Mera Amador MD [facility] CPT-4: 25590 10/28/2016 ([id number]) 94946 EST. 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 PATIENT, LEVEL III Diagnosis: Dysuria[ICD10: R30.0] Diagnosis: Essential (primary) hypertension[ICD10: I10] Mera Amador MD [facility] CPT-4: 08343 09/29/2016 ([id number]) 50062 EST. PATIENT, LEVEL III Diagnosis: Generalized anxiety disorder[ICD10: F41.1] Diagnosis: Dysuria[ICD10: R30.0] Diagnosis: Personal history of urinary (tract) infections[ICD10: Z87.440] Mera Amador MD [facility] CPT-4: 71662 09/03/2016 ([id number]) 48736 EST. PATIENT, LEVEL IV Diagnosis: Essential (primary) hypertension[ICD10: I10] Diagnosis: Generalized anxiety disorder[ICD10: F41.1] Diagnosis: Dysuria[ICD10: R30.0] Mera Amador MD [facility] CPT-4: 63960 08/24/2016 29958 EST. PATIENT, LEVEL IV Diagnosis: Hypo-osmolality and hyponatremia[ICD10: E87.1] Diagnosis: Generalized anxiety disorder[ICD10: F41.1] Diagnosis: Pelvic and perineal pain[ICD10: R10.2] Diagnosis: Candidal stomatitis[ICD10: B37.0] Meli Amador MD, [facility] CPT -4: 14889 08/11/2016 ([id number]) 45224 EST. PATIENT, LEVEL III Diagnosis: Generalized anxiety disorder[ICD10: F41.1] Diagnosis: Pelvic and perineal pain[ICD10: R10.2] Josiane Amador MD, [facility] CPT-4: 54289 08/03/2016 14381 EST. PATIENT, LEVEL IV Diagnosis: Generalized anxiety disorder[ICD10: F41.1] Diagnosis: Pelvic and perineal pain[ICD10: R10.2] Diagnosis: Gastro-esophageal reflux disease without esophagitis[ICD10: K21.9] Meli Amador MD, [facility] CPT-4: 52996 07/27/2016 ([id number]) 88488 EST. PATIENT, LEVEL III Diagnosis: Urinary tract infection, site not specified[ICD10: N39.0] Diagnosis: Gastro-esophageal reflux disease without esophagitis[ICD10: K21.9] Diagnosis: Generalized anxiety disorder[ICD10: F41.1] Josiane Amador MD, [facility] CPT-4: 61286 07/21/2016 ([id number]) 91559 EST. PATIENT, LEVEL III Diagnosis: Generalized anxiety disorder[ICD10: F41.1] Diagnosis: Essential (primary) hypertension[ICD10: I10] Diagnosis: Vitamin B12 deficiency anemia, unspecified[ICD10: D51.9] Josiane Amador MD , [facility] CPT-4: 21748 07/14/2016 ([id number]) 09839 EST. PATIENT, LEVEL IV Diagnosis: Hypo-osmolality and hyponatremia[ICD10: E87.1] Diagnosis: Other specified noninflammatory disorders of vagina[ICD10: N89.8] Diagnosis: Essential (primary) hypertension[ICD10: I10] Diagnosis: Major depressive disorder, recurrent, mild[ICD10: F33.0] Josiane Amador MD , [facility] CPT-4: 70842 07/10/2016 ([id number]) 83781 EST. PATIENT, LEVEL III Diagnosis: Urinary tract infection, site not specified[ICD10: N39.0] Diagnosis: Hypo-osmolality and hyponatremia[ICD10: E87.1] Josiane Amador MD, [facility] CPT-4: 76541 07/03/2016 92622 EST. PATIENT, LEVEL IV Diagnosis: Generalized anxiety disorder[ICD10: F41.1] Diagnosis: Major depressive disorder, recurrent, mild[ICD10: F33.0] Diagnosis: Hypo-osmolality and hyponatremia[ICD10: E87.1] Meli Amador MD, [facility] CPT-4: 08531 06/30/2016 ([id number]) 75873 EST. PATIENT, LEVEL III Diagnosis: Hypo-osmolality and hyponatremia[ICD10: E87.1] Diagnosis: Dysuria[ICD10: R30.0] Diagnosis: Essential (primary) hypertension[ICD10: I10] Mera Amador MD, [facility] CPT-4: 71006 06/23/2016 17830 EST. PATIENT, LEVEL III Diagnosis: Candidal stomatitis[ICD10: B37.0] Diagnosis: Gastro-esophageal reflux disease without esophagitis[ICD10: K21.9] Diagnosis: Hypo-osmolality and hyponatremia[ICD10: E87.1] Meli Amador MD, [facility] CPT-4: 11767 06/15/2016 ([id number]) 02329 EST. PATIENT, LEVEL III Diagnosis: Essential (primary) hypertension[ICD10: I10] Diagnosis: Hypo-osmolality and hyponatremia[ICD10: E87.1] Diagnosis: Urinary tract infection, site not specified[ICD10: N39.0] Josiane Amador MD [facility] CPT-4: 00624 06/05/2016 ([id number]) 97155 EST. PATIENT, LEVEL III Diagnosis: Urinary tract infection, site not specified[ICD10: N39.0] Josiane Amador MD [facility] CPT-4: 70011 06/01/2016 ([id number]) 12805 EST. 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 PATIENT, LEVEL III Diagnosis: Pain in left toe(s)[ICD10: M79.675] Diagnosis: Tinea unguium[ICD10: B35.1] [facility] CPT-4: 12657 05/11/2016 ([id number]) OFFICE VISIT, NEW - LEVEL 4 Diagnosis: Essential (primary) hypertension[ICD10: I10] Diagnosis: Hypo-osmolality and hyponatremia[ICD10: E87.1] [facility] CPT-4: 95219 04/30/2016 Plan of Care Planned Activity Notes Codes Status Date Appointment: Lab Draw 04/01/2017 Patient Education: Patient Medication Summary Completed 04/01/2017 Visit Plan: Dysuria, fatigue, malaise - will check labs and treat as indicated - pt s to follow up with infectious disease - pt is to notify clinic if symptoms do not improve, if they worsen, or with any changes, questions or concerns. Chronic Depression and anxiety - the pt has symptoms of chronic anxiety and depression that have been fairly well controlled since the last office visit. The pt has expected periods of exacerbation with abatement of the symptoms with change in situational exposure. No change in current medications. 03/19/2017 Appointment[id number] ([facility] 03/19/2017 Patient Education: Patient Medication Summary Completed 03/19/2017 Visit Plan: Left lower quadrant pain - episode was brief and has resolved - pt advised to avoid seeds, nuts, popcorn, or any other food which has been proven to upset the pt's stomach, pt is to notify clinic if symptoms return, or with any other changes, questions, or concerns. 03/08/2017 Appointment: [id number] ([facility] Complex 03/08/2017 Patient Education: Patient Medication Summary Completed 03/08/2017 Appointment: Lab Draw 03/05/2017 Patient Education: Patient Medication Summary Completed 03/05/2017 Appointment: Lab Draw 02/23/2017 Appointment: Lab Draw 02/08/2017 Patient Education: Patient Medication Summary Completed 02/08/2017 Visit Plan: Dysuria - resolved - defer to infectious disease and urology - pt is to update clinic with any change in the treatment plan or with any acute changes, questions, or concerns. Chronic Depression and anxiety - the pt has symptoms of chronic anxiety and depression that have been fairly well controlled since the last office visit. The pt has expected periods of exacerbation with abatement of the symptoms with change in situational exposure. No change in current medications. 02/02/2017 App[facility]ment[id number] ([facility] Complex 02/02/2017 Patient Education: Patient Medication Summary Completed 02/02/2017 Visit Plan: UTI, recurrent - pt had positive UA at infectious disease office last week, pt complaints of still being very symptomatic. Antibiotic electronically prescribed to pt's pharmacy of choice. Pt to call if symptoms do not improve. Pt is to keep her appointment with Dr. Persaud. Pt is to notify clinic with any changes in the treatment plan, or with any questions or concerns. 01/15/2017 Patient Education: Patient Medication Summary Completed 01/15/2017 Referral: External, Ordering Provider Referral Initiated 01/06/2017 Visit Plan: UTI - pt with positive urinalysis - culture sent if appropriate. Antibiotic electronically prescribed to pt's pharmacy of choice. Pt to call if symptoms do not improve. Rash - improving - pt is to continue prednisone taper as ordered - The patient is to call for any change in symptoms, increase in size of the lesion, increase in pain, worsening redness, warmth, discharge. 12/30/2016 Appointment: [phone] ([facility]) Complex 12/30/2016 Patient Education: Patient Medication Summary Completed 12/30/2016 Visit Plan: Left leg pain and edema - warm to the touch and tender - will order US. The pt is to continue with thigh high compression stockings for varicose veins. Pt is to notify clinic if symptoms do not improve , if they worsen, or with any changes, questions, or concerns. Chronic UTI - will repeat UA today, infectious disease clinic in [place] is reviewing her case to make her an appointment, no other changes at this time. 12/22/2016 Appointment: [phone] (15 min) Moderate 12/22/2016 Patient Education: Patient Medication Summary Completed 12/22/2016 Care Plan: VASCULAR STUDY Pending 12/22/2016 Care Plan: Referral Order SNOMED-CT : [id number] Pending 12/20/2016 Visit Plan: Varicose veins - Pt has been using calf high compression stockings that have not been staying in place - pt is to get thigh high compression stockings. Pt is to notify clinic if symptoms do not improve, if they worsen, or with any changes, questions, or concerns. Chronic UTI - Pt sees specialist at , and is going to be referred to infectious disease - she would like to be referred to someone in [place] instead of at - will look into referral to specialist in [place]. 12/18/2016 Appointment: Meli Malone WPtel: [facility]5 [phone] (15 min) Moderate 12/18/2016 Patient Education: Patient Medication Summary Completed 12/18/2016 Appointment: Lab Draw 12/04/2016 Appointment: Meli Malone WPtel: [facility] ([facility] min) Complex 11/27/2016 Visit Plan: UA negative - pt was feeling better on the diflucan - will refill RX x 1 - pt has an appointment with Urogynecology on . 11/26/2016 Appointment: Lab Draw 11/26/2016 Patient Education: Patient Medication Summary Completed 11/26/2016 Visit Plan: Varicose veins-recommend compression stockings- monitor symptoms and call if uncontrolled UTI-culture urine 11/20/2016 Appointment: Josiane Berry WPtel: [facility]5 [phone] [place] (30 min) Complex 11/20/2016 Patient Education: Patient Medication Summary Completed 11/20/2016 Visit Plan: Dysuria - ongoing - UA negative - pt is to finish her abx as directed - will send RX, pt is to follow up with Dr. Hughes. Pt is to notify clinic if symptoms do not improve, if they worsen, or with any questions or concerns. 11/16/2016 Appointment: Meli Malone [facility]el[phone] [place] (15 min) Moderate 11/16/2016 Patient Education: Patient Medication Summary Completed 11/16/2016 Appointment: Lab Draw 11/13/2016 Appointment: Lab Draw 11/06/2016 Patient Education: Patient Medication Summary Completed 11/06/2016 Care Plan: Urine Culture Pending 11/06/2016 Visit Plan: Chronic Depression and anxiety - the pt has symptoms of chronic anxiety and depression that have been fairly well controlled since the last office visit. The pt has expected periods of exacerbation with abatement of the symptoms with change in situational exposure. No change in current medications. Recurrent urinary tract infections - she is currently on doxycycline and diflucan from Dr. Hughes as of 10/27/16. I talked to Dr. Stewart wolfe about the patient. He will see her in follow up and he stated that he had planned to do a cystoscopy if her symptoms were not improved. 10/28/2016 Appointment: [phone] [place] (15 min) Moderate 10/28/2016 Patient Education: Patient Medication Summary Completed 10/28/2016 Appointment: Lab Draw 10/16/2016 Patient Education: Patient Medication Summary Completed 10/16/2016 Visit Plan: Allergies-continue claritin-add flonase as directed UTI-UA negative-symptoms resolved Meroc-ckhogqod-mhqykyi with upset stomach and feels more anxious/jittery-likely due to prednisone-stay off prednisone and call if symptoms do not resolve. Patient and caregiver verbalized understanding of plan. 10/13/2016 Visit Plan: Allergies-continue claritin-add flonase as directed UTI-UA negative-symptoms resolved Txsui-gubnsaga-rczldnv with upset stomach and feels more anxious/jittery-likely due to prednisone-stay off prednisone and call if symptoms do not resolve. Patient and caregiver verbalized understanding of plan. 10/13/2016 Appointment: Josiane Berry WPtel: [phone] [phone] [place] (15 min) Moderate 10/13/2016 Patient Education: Patient Medication Summary Completed 10/13/2016 Visit Plan: Allergic reaction-suspect due to cefdinir- kenalog injection today in the office-start prednisone tomorrow-start oral anti histamine such as claritin or zyrtec as directed-call if symptoms do not resolve , ER if any worse. Patient and friend verbalized understanding of plan. 10/08/2016 Appointment: Josiane Berry WPtel: [facility]3 [phone] [place] (30 min) Complex 10/08/2016 Patient Education: Patient Medication Summary Completed 10/08/2016 Visit Plan: Chronic Depression and anxiety - the pt has symptoms of chronic anxiety and depression that have been fairly well controlled since the last office visit. The pt has expected periods of exacerbation with abatement of the symptoms with change in situational exposure. No change in current medications. Dysuria - continue with plans for referral - pt has appt planned in November. 09/29/2016 Appointment: Mera Amador WPtel: [phone] (15 min) Moderate 09/29/2016 Patient Education: Patient Medication Summary Completed 09/29/2016 Appointment: Mera Amador WPtel: [facility] [place] (15 min) Moderate 09/23/2016 Appointment: Lab Draw 09/09/2016 Visit Plan: Anxiety - uncontrolled - restart the LEXAPRO 5mg at bedtime. Recurrent urinary tract infection - start on the PREVENTATIVE antibiotic trimethoprim 100mg daily. 09/03/2016 Appointment: Mera Amador WPtel: [facility] [place] (15 min) Moderate 09/03/2016 Patient Education: Patient Medication Summary Completed 09/03/2016 Visit Plan: Hypertension - well controlled - continue with current medications, continue with no added salt diet. Pt has been encouraged to exercise daily. The pt has been advised to call the office if there are any acute concerns about change in blood pressure readings at home. Anxiety - the patient has uncontrolled anxiety and will continue to benefit from an SSRI on a daily basis to attempt control of the symptoms of anxiety (tachycardia, overwhelming sensations, stress, insomnia, etc). I also believe that the patient will benefit from very low dose of prn benzodiazepine. Pt is aware of the risks and benefits of treatment with the above medications. 08/24/2016 Appointment: Mera Amador WPtel: [phone] [facility] (15 min) Moderate 08/24/2016 Patient Education: Patient Medication Summary Completed 08/24/2016 Visit Plan: Anxiety-continue lexapro-xanax prn-no changes in medications today Pelvic pain - Positive UA from ER - discussed sensitivity with Dr. Amador - RX sent to pharmacy - pt is to return to clinic in 2 weeks for follow up and repeat UA. Pt has appointment with Dr. Abraham. Thrush - RX sent to pharmacy - pt is to notify clinic if symptoms do not improve, if they worsen, or with any questions or concerns. 08/11/2016 Appointment: Meli Malone WPtel: [facility]1 [facility] (30 min) Complex 08/11/2016 Patient Education: Patient Medication Summary Completed 08/11/2016 Appointment: Lab Draw 08/06/2016 Patient Education: Patient Medication Summary Completed 08/06/2016 Appointment: Josiane Berry WPtel: [phone] [place] (15 min) Moderate 08/04/2016 Visit Plan: Anxiety-continue lexapro-xanax prn-no changes in medications today Pelvic pain-UA negative-patient to see Dr Abraham for FORM PRESSER evaluation 08/03/2016 Appointment: Josiane Berry WPtel: [facility]7 [phone] [place] (10 min) Simple 08/03/2016 Patient Education: Patient Medication Summary Completed 08/03/2016 Visit Plan: Ongoing/Recurrent UTI - pt has appointment with Dr. Hughes. Esophageal Reflux - the patient has been counseled against excessive intake of caffeine, spicy foods, peppermint, and cinnamon - all of which can exacerbate esophageal reflux. The patient is to take medications as prescribed and call the office if the symptoms are not improving. Anxiety - the patient has uncontrolled anxiety and will benefit from an SSRI on a daily basis to attempt control of the symptoms of anxiety (tachycardia, overwhelming sensations, stress, insomnia, etc). I also believe that the patient will benefit from very low dose of prn benzodiazepine. Pt is aware of the risks and benefits of treatment with the above medications. 07/27/2016 Appointment: Meli Malone WPtel: [facility]9 [facility]66[facility] (15 min) Moderate 07/27/2016 Patient Education: Patient Medication Summary Completed 07/27/2016 Visit Plan: Esophageal Reflux - the patient has been counseled against excessive intake of caffeine, spicy foods, peppermint, and cinnamon - all of which can exacerbate esophageal reflux. The patient is to take medications as prescribed and call the office if the symptoms are not improving. RESTART OMEPRAZOLE Anxiety-patient still has not started lexapro- increase xanax as directed UTI-on abx-repeat UA when abx complete-instructed patient to f/u with Dr Hughes 07/21/2016 Appointment: Josiane Berry WPtel: [facility]3 [phone] (15 min) Moderate 07/21/2016 Patient Education: Patient Medication Summary Completed 07/21/2016 Visit Plan: Anxiety - the patient has uncontrolled anxiety and will benefit from an SSRI on a daily basis to attempt control of the symptoms of anxiety (tachycardia, overwhelming sensations, stress, insomnia, etc ). I also believe that the patient will benefit from very low dose of prn benzodiazepine. Pt is aware of the risks and benefits of treatment with the above medications. B12 deficiency-B12 injection today in the office HTN-no change in medications 07/14/2016 Appointment: Josiane Berry WPtel: [phone] (30 min) Complex 07/14/2016 Patient Education: Patient Medication Summary Completed 07/14/2016 Visit Plan: Hypertension - well controlled - continue with current medications, continue with no added salt diet. Pt has been encouraged to exercise daily. The pt has been advised to call the office if there are any acute concerns about change in blood pressure readings at home. Depression- patient still has not started the lexapro-instructed her to start it this evening Vaginal pain-wet prep of discharge today in the office Low sodium-check labs 07/10/2016 Appointment: Josiane Berry WPtel: [phone] [phone] (15 min) Moderate 07/10/2016 Patient Education: Patient Medication Summary Completed 07/10/2016 Visit Plan: UTI-finish cefuroxime-then start preventative abx-recheck UA in 1 week Low sodium-check labs today Depression-start the lexapro as directed 07/03/2016 Appointment: Josiane Berry WPtel: [phone] [phone] (15 min) Moderate 07/03/2016 Patient Education: Patient Medication Summary Completed 07/03/2016 Visit Plan: Hyponatremia - continue pedialyte - repeat labs on Wednesday. Dysuria - repeat UA, finish abx as directed. Depression - uncontrolled - Pt has been counseled about the diagnosis of depression, the potential causes, and risks associated with the diagnosis. The pt denies suicidal ideation, or plans. The patient has been counseled about treatment options, and understands the risks associated with treatment of depression, as well as the risks associated with NOT treating the depression. I believe the pt will benefit from medical intervention and an antidepressant has been appropriately prescribed for this patient. 06/30/2016 Appointment: Meli Malone WPtel: [phone] [phone] (30 min) Complex 06/30/2016 Patient Education: Patient Medication Summary Completed 06/30/2016 Appointment: Injection 06/26/2016 Patient Education: Patient Medication Summary Completed 06/26/2016 Visit Plan: Hypertension - well controlled - continue with current medications, continue with no added salt diet. Pt has been encouraged to exercise daily. The pt has been advised to call the office if there are any acute concerns about change in blood pressure readings at home. Hyponatremia - continue with gatorade. Monitor labs serially 06/23/2016 Appointment: Mera Amador WPtel: [phone] [facility] (15 min) Moderate 06/23/2016 Patient Education: Patient Medication Summary Completed 06/23/2016 Care Plan: Urinalysis Pending 06/23/2016 Visit Plan: Esophageal Reflux - the patient has been counseled against excessive intake of caffeine, spicy foods, peppermint, and cinnamon - all of which can exacerbate esophageal reflux. The patient is to take medications as prescribed and call the office if the symptoms are not improving. Thrush - finish nystatin as directed - notify clinic if symptoms do not improve, if they worsen, or with any questions or concerns. Hyponatremia - pt is to try G2 to see if it does not bother her stomach as much - monitor labs. 06/15/2016 Appointment: Meli Malone WPtel: [address] [place], [place] [phone] (10 min) Simple 06/15/2016 Patient Education: Patient Medication Summary Completed 06/15/2016 Appointment: Lab Draw 06/11/2016 Patient Education: Patient Medication Summary Completed 06/11/2016 Patient Education: Patient Medication Summary Completed 06/11/2016 Visit Plan: HTN-slightly elevated today-no change in treatment Low sodium-check labs today-increase gatorade if needed UTI-finish cipro Anxiety-xanax RX provided and instructed on use-will use for a short time 06/05/2016 Appointment: Josiane Berry WPtel: [facility]1 [phone] (15 min) Moderate 06/05/2016 Patient Education: Patient Medication Summary Completed 06/05/2016 Visit Plan: UTI-persistent symptoms-stop cefdinir start cipro as directed-repeat UA upon completion of abx-continue estrace cream as directed-keep appt with Dr Hughes 06/01/2016 Appointment: Josiane Berry WPtel: [facility]7 [phone] (15 min) Moderate 06/01/2016 Patient Education: Patient Medication Summary Completed 06/01/2016 Visit Plan: Hypertension - well controlled - continue with current medications, continue with no added salt diet. Pt has been encouraged to exercise daily. The pt has been advised to call the office if there are any acute concerns about change in blood pressure readings at home. UTI - pt with positive urinalysis - culture sent if appropriate. Antibiotic electronically prescribed to pt's pharmacy of choice. Pt to call if symptoms do not improve. bathroom wipe with aloe if possible - such as cotonelle moist wipes also - use the estrace cream daily x 1 week then go to three times a week stop fish oil stop the OMEPRAZOLE - this is the one time a day capsule the CARAFATE ( sucralfate) - which is the med that you dissolve - keep taking this medication for now - once the infection in your bladder has improved - we will see about stopping this medication as well Meloxicam - mobic - this medication is for decreasing inflammation - often used for arthritis - if you are not having arthritis pain - don't take it allopurinol is for gout - we should check a uric acid level now and then in one month off of the allopurinol - if your uric acid levels are fine, then we will not restart the allopurinol. you will be on flagyl twice daily and another antibiotic twice daily - cefdinir - for the bladder infection- WHILE on the antibiotics - start on a probiotic called CULTURELLE - take the probiotic culturelle three times daily. 05/28/2016 Appointment: Mera Amador WPtel: [facility] (15 min) Moderate 05/28/2016 Patient Education: Patient Medication Summary Completed 05/28/2016 Visit Plan: Left great toe pain-with fungal infection of nail-- large nail nippers and dremmel used to trim dystrophic, thickened, elongated toenail left great toe-patient verbalized relief from pain. Instructed patient to call if symptoms return or other concerns. 05/11/2016 Appointment: Jos[facility] Berry [facility]el[phone] [place] (15 min) Moderate 05/11/2016 Patient Education: Patient Medication Summary Completed 05/11/2016 Appointment: Nurse Visit 05/06/2016 Patient Education: Patient Medication Summary Completed 05/06/2016 Visit Plan: Hypertension - uncontrolled - the patient's medications have been modified as documented in the visit note. The patient has been counseled to cut back on salt in diet for a no added salt diet, low fat diet, start an exercise program with low weight bearing exercises and higher aerobic activity for heart health. The patient is to check blood pressure readings as an outpatient and either fax, call, or email the readings to the office next week for practitioner to review. The pt is to call for acute concerns. Hyponatremia - check labs - monitor symptoms. 04/30/2016 Appointment: Mera Amador WPtel: [facility] [facility] Patient 04/30/2016 Patient Education: Patient Medication Summary Completed 04/30/2016 Referral: External, Ordering Provider Referral Initiated Instructions Comment STOP THE ESTRACE CREAM AND THE KEFLEX WE CAN TRY A DIFFERENT PREVENATATIVE MEDICATION BUT LETS STOP IT FIRST AND SEE HOW ARE YOU ARE FEELING XANAX -REFILL TO USE NEEDED -1/2-1 TAB DAILY NEEDED #30 START LEXAPRO B12 INJECTION TODAY IN THE OFFICE . Anxiety - the patient has uncontrolled anxiety and will benefit from an SSRI on a daily basis to attempt control of the symptoms of anxiety (tachycardia, overwhelming sensations, stress, insomnia , etc). I also believe that the patient will benefit from very low dose of prn benzodiazepine. Pt is aware of the risks and benefits of treatment with the above medications. B12 deficiency-B12 injection today in the office HTN-no change in medications . UA negative - pt was feeling better on the diflucan - will refill RX x 1 - pt has an appointment with [facility] on 12/16. FINISH ANTIBIOTIC-START PREVENTATIVE ANTIBIOTIC AFTER YOU FINISH THE CEFUROXIME CALL WEDNESDAY WITH UPDATE . UTI-finish cefuroxime-then start preventative abx-recheck UA in 1 week Low sodium-check labs today Depression-start the lexapro as directed . Anxiety-continue lexapro-xanax prn-no changes in medications today Pelvic pain-UA negative-patient to see Dr Abraham for FORM PRESSER evaluation . Anxiety - uncontrolled - restart the LEXAPRO 5mg at bedtime. Recurrent urinary tract infection - start on the PREVENTATIVE antibiotic trimethoprim 100mg daily. FINISH CIPRO THEN START THE ANTIBIOTIC FROM DR HUGHES CONTINUE GATORADE XANAX 0.25MG 1/2-1 TAB AT BEDTIME NEEDED FOR ANXIETY/SLEEP -take it 30 minutes before going to bed-you can start with 1/4 of a tablet and see if that is enough to help you sleep . HTN-slightly elevated today-no change in treatment Low sodium-check labs today-increase gatorade if needed UTI-finish cipro Anxiety-xanax RX provided and instructed on use-will use for a short time RESTSART OMEPRAZOLE KEEP APPOINTMENT WITH DR HUGHES FINISH MEDICATIONS FROM THE ER INCREASE ALPRAZOLAM (XANAX) TO 1/2 TAB THREE TIMES DAILY NEEDED FOR ANXIETY RE-CULTURE URINE 48-72 HOURS AFTER FINISHING ANTIBIOTICS . Esophageal Reflux - the patient has been counseled against excessive intake of caffeine, spicy foods, peppermint, and cinnamon - all of which can exacerbate esophageal reflux. The patient is to take medications as prescribed and call the office if the symptoms are not improving. RESTART OMEPRAZOLE Anxiety-patient still has not started lexapro-increase xanax as directed UTI-on abx-repeat UA when abx complete-instructed patient to f/u with Dr Hughes . Allergies-continue claritin-add flonase as directed UTI-UA negative-symptoms resolved Rgxwy-fdmxumfi-nkxwpnk with upset stomach and feels more anxious/jittery-likely due to prednisone-stay off prednisone and call if symptoms do not resolve. Patient and caregiver verbalized understanding of plan. . Allergies-continue claritin-add flonase as directed UTI-UA negative-symptoms resolved Ksftl-soqrbkph-rfjjnsk with upset stomach and feels more anxious/jittery-likely due to prednisone-stay off prednisone and call if symptoms do not resolve. Patient and caregiver verbalized understanding of plan. increase the probiotic to three times a day until your stools get more solid stop triam/hctz and stop potassium new medication for blood pressure called to pharmacy - LOSARTAN 50mg daily use mineral oil in your ear twice a day x 1 week then return to clinic for nurses to wash out your right ear . Hypertension - uncontrolled - the patient's medications have been modified as documented in the visit note. The patient has been counseled to cut back on salt in diet for a no added salt diet, low fat diet, start an exercise program with low weight bearing exercises and higher aerobic activity for heart health. The patient is to check blood pressure readings as an outpatient and either fax , call, or email the readings to the office next week for practitioner to review. The pt is to call for acute concerns. Hyponatremia - check labs - monitor symptoms. Cipro - take 500mg twice a day x 10 days - stay on the probiotic 3 times a day. . UTI, recurrent - pt had positive UA at infectious disease office last week, pt complaints of still being very symptomatic. Antibiotic electronically prescribed to pt's pharmacy of choice. Pt to call if symptoms do not improve. Pt is to keep her appointment with Dr. Persaud. Pt is to notify clinic with any changes in the treatment plan, or with any questions or concerns. . Dysuria, fatigue, malaise - will check labs and treat as indicated - pt s to follow up with infectious disease - pt is to notify clinic if symptoms do not improve, if they worsen, or with any changes, questions or concerns. Chronic Depression and anxiety - the pt has symptoms of chronic anxiety and depression that have been fairly well controlled since the last office visit. The pt has expected periods of exacerbation with abatement of the symptoms with change in situational exposure. No change in current medications. Continue cefuroxime as prescribed. Fluconazole is done - you do not need to continue this Continue the omeprazole Carafate - is the medication before meals - you can take this as needed for reflux/heart burn symptoms. Start the Lexapro 5mg every night. This is a long acting anxiety/depression medication. Alprazolam 0.25mg 1/4 - 1/2 pill as needed - this is a short acting anxiety medication Follow up with Dr. Hughes, and let us know what he says. Come back in 2 weeks to see if the Lexapro is helping, if it is not then we can increase the dose. Call us with any questions or concerns. . Ongoing/Recurrent UTI - pt has appointment with Dr. Hughes. Esophageal Reflux - the patient has been counseled against excessive intake of caffeine, spicy foods, peppermint, and cinnamon - all of which can exacerbate esophageal reflux. The patient is to take medications as prescribed and call the office if the symptoms are not improving. Anxiety - the patient has uncontrolled anxiety and will benefit from an SSRI on a daily basis to attempt control of the symptoms of anxiety (tachycardia, overwhelming sensations, stress, insomnia, etc). I also believe that the patient will benefit from very low dose of prn benzodiazepine. Pt is aware of the risks and benefits of treatment with the above medications. change the xanax to 1/2 pill three times daily if needed. . Hypertension - well controlled - continue with current medications, continue with no added salt diet. Pt has been encouraged to exercise daily. The pt has been advised to call the office if there are any acute concerns about change in blood pressure readings at home. Anxiety - the patient has uncontrolled anxiety and will continue to benefit from an SSRI on a daily basis to attempt control of the symptoms of anxiety ( tachycardia, overwhelming sensations, stress, insomnia, etc). I also believe that the patient will benefit from very low dose of prn benzodiazepine. Pt is aware of the risks and benefits of treatment with the above medications. 3 cups a day of the pedialyte - repeat blood work on Wednesday. Will start a low dose antidepressant medication - take at night Diflucan 150mg daily x 5 days. Repeat UA today. Follow up in 2 weeks. Let me know if you do not start to feel better, or with any changes or concerns. . Hyponatremia - continue pedialyte - repeat labs on Wednesday. Dysuria - repeat UA, finish abx as directed. Depression - uncontrolled - Pt has been counseled about the diagnosis of depression, the potential causes, and risks associated with the diagnosis. The pt denies suicidal ideation, or plans. The patient has been counseled about treatment options, and understands the risks associated with treatment of depression, as well as the risks associated with NOT treating the depression. I believe the pt will benefit from medical intervention and an antidepressant has been appropriately prescribed for this patient. . Dysuria - resolved - defer to infectious disease and urology - pt is to update clinic with any change in the treatment plan or with any acute changes, questions, or concerns. Chronic Depression and anxiety - the pt has symptoms of chronic anxiety and depression that have been fairly well controlled since the last office visit. The pt has expected periods of exacerbation with abatement of the symptoms with change in situational exposure. No change in current medications. Try G2 if the gatorade is too hard on stomach - exact same amount - repeat blood work in 1 week to see if it is improving. Zantac 150mg once a day - I will send a script but if it is more expensive get the over the counter medication. When you start keflex again take it with food. . Esophageal Reflux - the patient has been counseled against excessive intake of caffeine, spicy foods, peppermint, and cinnamon - all of which can exacerbate esophageal reflux. The patient is to take medications as prescribed and call the office if the symptoms are not improving. Thrush - finish nystatin as directed - notify clinic if symptoms do not improve , if they worsen, or with any questions or concerns. Hyponatremia - pt is to try G2 to see if it does not bother her stomach as much - monitor labs. bathroom wipe with aloe if possible - such as cotonelle moist wipes also - use the estrace cream daily x 1 week then go to three times a week stop fish oil stop the OMEPRAZOLE - this is the one time a day capsule the CARAFATE (sucralfate) - which is the med that you dissolve - keep taking this medication for now - once the infection in your bladder has improved - we will see about stopping this medication as well Meloxicam - mobic - this medication is for decreasing inflammation - often used for arthritis - if you are not having arthritis pain - don't take it allopurinol is for gout - we should check a uric acid level now and then in one month off of the allopurinol - if your uric acid levels are fine, then we will not restart the allopurinol. you will be on flagyl twice daily and another antibiotic twice daily - cefdinir - for the bladder infection- WHILE on the antibiotics - start on a probiotic called CULTURELLE - take the probiotic culturelle three times daily. . Hypertension - well controlled - continue with current medications, continue with no added salt diet. Pt has been encouraged to exercise daily. The pt has been advised to call the office if there are any acute concerns about change in blood pressure readings at home. UTI - pt with positive urinalysis - culture sent if appropriate. Antibiotic electronically prescribed to pt's pharmacy of choice. Pt to call if symptoms do not improve. bathroom wipe with aloe if possible - such as cotonelle moist wipes also - use the estrace cream daily x 1 week then go to three times a week stop fish oil stop the OMEPRAZOLE - this is the one time a day capsule the CARAFATE (sucralfate) - which is the med that you dissolve - keep taking this medication for now - once the infection in your bladder has improved - we will see about stopping this medication as well Meloxicam - mobic - this medication is for decreasing inflammation - often used for arthritis - if you are not having arthritis pain - don't take it allopurinol is for gout - we should check a uric acid level now and then in one month off of the allopurinol - if your uric acid levels are fine, then we will not restart the allopurinol. you will be on flagyl twice daily and another antibiotic twice daily - cefdinir - for the bladder infection- WHILE on the antibiotics - start on a probiotic called CULTURELLE - take the probiotic culturelle three times daily. VICKS VAPOR RUB TO BASE OF TOENAIL NIGHTLY USE A LITTLE PIECE OF COTTON UNDER EDGE OF NAIL TO KEEP IT FROM INGROWING . Left great toe pain-with fungal infection of nail-- large nail nippers and dremmel used to trim dystrophic, thickened, elongated toenail left great toe- patient verbalized relief from pain. Instructed patient to call if symptoms return or other concerns. Once the medrol dose pack is finished - start on aleve 220mg one pill twice daily to see if this helps to decrease your discomfort pain. . Chronic Depression and anxiety - the pt has symptoms of chronic anxiety and depression that have been fairly well controlled since the last office visit. The pt has expected periods of exacerbation with abatement of the symptoms with change in situational exposure. No change in current medications. Recurrent urinary tract infections - she is currently on doxycycline and diflucan from Dr. Hughes as of 10/27/16. I talked to Dr. Stewart wolfe about the patient. He will see her in follow up and he stated that he had planned to do a cystoscopy if her symptoms were not improved. . Hypertension - well controlled - continue with current medications, continue with no added salt diet. Pt has been encouraged to exercise daily. The pt has been advised to call the office if there are any acute concerns about change in blood pressure readings at home. Hyponatremia - continue with gatorade. Monitor labs serially compression stockings . Varicose veins-recommend compression stockings-monitor symptoms and call if uncontrolled UTI-culture urine STOP THE CEFDINIR AND FLUCONAZOLE START CLARITIN 10MG DAILY START PREDNISONE TOMORROW-I SENT IN A PRESCRIPTION FOR THIS KENALOG INJECTION TODAY IN THE OFFICE YOU CAN RESTART THE FLUCONAZOLE ON WEDNESDAY IF RASH RESOLVED-LET US KNOW IF THE RASH RETURNS . Allergic reaction-suspect due to cefdinir-kenalog injection today in the office-start prednisone tomorrow-start oral anti histamine such as claritin or zyrtec as directed-call if symptoms do not resolve, ER if any worse. Patient and friend verbalized understanding of plan. August AT 1:[address] ABRAHAM . Anxiety-continue lexapro-xanax prn-no changes in medications today Pelvic pain - Positive UA from ER - discussed sensitivity with Dr. Amador - RX sent to pharmacy - pt is to return to clinic in 2 weeks for follow up and repeat UA. Pt has appointment with Dr. Abraham. Thrush - RX sent to pharmacy - pt is to notify clinic if symptoms do not improve , if they worsen, or with any questions or concerns. Preleif - over the counter - may help to decrease abdominal /vaginal discomfort. Chronic Depression and anxiety - the pt has symptoms of chronic anxiety and depression that have been fairly well controlled since the last office visit. The pt has expected periods of exacerbation with abatement of the symptoms with change in situational exposure. No change in current medications. Dysuria - continue with plans for referral - pt has appt planned in November. Thigh high compression stockings. . Left leg pain and edema - warm to the touch and tender - will order US. The pt is to continue with thigh high compression stockings for varicose veins. Pt is to notify clinic if symptoms do not improve, if they worsen, or with any changes, questions, or concerns. Chronic UTI - will repeat UA today, infectious disease clinic in [place] is reviewing her case to make her an appointment, no other changes at this time. . Left lower quadrant pain - episode was brief and has resolved - pt advised to avoid seeds, nuts, popcorn, or any other food which has been proven to upset the pt's stomach, pt is to notify clinic if symptoms return, or with any other changes, questions, or concerns. . Dysuria - ongoing - UA negative - pt is to finish her abx as directed - will send RX, pt is to follow up with Dr. Hughes. Pt is to notify clinic if symptoms do not improve, if they worsen, or with any questions or concerns. START THE LEXAPRO WET PREP-WE WILL CALL YOU WITH THE RESULTS KEEP LOG OF PAIN AND WHEN YOU USE THE VAGINAL ESTRACE CREAM . Hypertension - well controlled - continue with current medications, continue with no added salt diet. Pt has been encouraged to exercise daily. The pt has been advised to call the office if there are any acute concerns about change in blood pressure readings at home. Depression-patient still has not started the lexapro-instructed her to start it this evening Vaginal pain-wet prep of discharge today in the office Low sodium-check labs Thigh high compression stockings. . Varicose veins - Pt has been using calf high compression stockings that have not been staying in place - pt is to get thigh high compression stockings. Pt is to notify clinic if symptoms do not improve, if they worsen, or with any changes, questions, or concerns. Chronic UTI - Pt sees specialist at , and is going to be referred to infectious disease - she would like to be referred to someone in [place] instead of at - will look into referral to specialist in [place]. stop cefdinir continue flagyl start cipro 500mg twice daily call in 1 week with update on symptoms . UTI-persistent symptoms-stop cefdinir start cipro as directed-repeat UA upon completion of abx-continue estrace cream as directed-keep appt with Dr Hughes . UTI - pt with positive urinalysis - culture sent if appropriate. Antibiotic electronically prescribed to pt's pharmacy of choice. Pt to call if symptoms do not improve. Rash - improving - pt is to continue prednisone taper as ordered - The patient is to call for any change in symptoms, increase in size of the lesion, increase in pain, worsening redness, warmth, discharge.
[2017-05-04] MEDS ORDERED: LACTATED RINGERS 1,000 ML IV STA (08:31)
[2017-05-04] MEDS ORDERED: LACTATED RINGERS 1,000 ML IV ONE (08:31)
--- OUTSIDE RECORDS SUMMARY | 2017-05-04 08:33 | XMS REPORT | CCD ---
Author Author Mera Amador Organization Mera Amador MD, [facility] Address [address] [place] [address] Phone Care Team Providers Care Career Services Representative Name Role Phone PP Unavailable CCM Unavailable Summary Purpose Interface Exchange Insurance Providers Payer name Policy type / Coverage type Covered libertarian ID Effective Begin Date Effective End Date WPS Medicare Part B Medicare Part B [id number] Unknown Unknown AARP Medicare Part B [id number] Unknown Unknown Family History Family History data not found Social History Social History Element Codes Description Effective Dates Marital status Unknown 04/30/[address]: 807924349 Never smoker 04/30/[address]: 274021455 Never drinks alcohol 04/30/2016 Allergies, Adverse Reactions, Alerts Substance Reaction Codes Entered Date Inactivated Date Status cephalexin rash RxNorm: 2231 10/28/2016 No Inactive Date Active ultram pruritis RxNorm: 26541 08/24/2016 No Inactive Date Active Past Medical [...] 06/15/2016 Unknown Pelvic and perineal pain ICD-9: [id number] ICD-10: R10.2 Active 08/03/2016 Unknown Vitamin B12 [...] 06/15/2016 Active Pelvic and perineal pain ICD-9: [id number] ICD-10: R10.2 08/03/2016 Active Vitamin B12 deficiency [...] Fill Instructions Cipro 500 mg tablet RxNorm: 572215 1 Tablet(s) PO BID 201704/16/2017 Inactive Cipro 500 mg tablet RxNorm: 306458 1 Tablet(s) PO BID 201603/25/2017 Inactive hydrocodone 5 mg-acetaminophen 325 mg tablet RxNorm: 383620 1 Tablet(s) PO Q6 as needed 03/05/2017 03/19/2017 Inactive Diflucan 150 mg tablet RxNorm: 278749 1 Tablet(s) PO daily 03/05/2017 Inactive Diflucan 150 mg tablet RxNorm: 664759 1 Tablet(s) PO daily 02/28/2017 Inactive Seasonique 0.15 mg-30 mcg (84)/10 mcg(7) tablets,3 month dose pack RxNorm: 480783 1 Tablet(s) PO UD 02/24/2017 02/24/2017 Inactive losartan 50 mg tablet RxNorm: 662106 TAKE ONE TABLET BY MOUTH ONCE DAILY IN THE MORNING 02/23/2017 No Stop Date Active Diflucan 150 mg tablet RxNorm: 909386 1 Tablet(s) PO daily 09/201602/14/2017 Inactive Cipro 500 mg tablet RxNorm: 707597 1 Tablet(s) PO BID 201601/21/2017 Inactive Augmentin 500 mg-125 mg tablet RxNorm: 801468 1 Tablet(s) PO TID 12/30/2016 12/29/2016 Inactive Augmentin 500 mg-125 mg tablet RxNorm: 486157 1 Tablet(s) PO TID 12/30/2016 01/05/2017 Inactive hydrocodone 5 mg-acetaminophen 325 mg tablet RxNorm: 585437 1 Tablet(s) PO Q6 as needed 12/24/2016 01/07/2017 Inactive omeprazole 40 mg capsule,delayed release RxNorm: 389807 TAKE ONE CAPSULE BY MOUTH ONCE DAILY 12/08/2016 04/06/2017 Inactive Diflucan 150 mg tablet RxNorm: 500780 1 Tablet(s) PO daily 12/02/2016 Inactive Xanax 0.25 mg tablet RxNorm: 394082 1/2-1 Tablet(s) PO TID as needed 11/24/2016 01/22/2017 Inactive Xanax 0.25 mg tablet RxNorm: 041527 1/2-1 Tablet(s) PO TID as needed 11/24/2016 01/21/2017 Inactive sucralfate 1 gram tablet RxNorm: 968497 TAKE ONE TABLET BY MOUTH BEFORE MEALS AND AT BEDTIME 11/20/2016 12/19/2016 Inactive Diflucan 150 mg tablet RxNorm: 559722 1 Tablet(s) PO daily 11/22/2016 Inactive Levaquin 500 mg tablet RxNorm: 997782 1 Tablet(s) PO daily 10/201611/08/2016 Inactive Levaquin 500 mg tablet RxNorm: 658357 1 Tablet(s) PO daily 10/201611/15/2016 Inactive losartan 50 mg tablet RxNorm: 682074 1 Tablet(s) PO QAM 201602/22/2017 Inactive hydrocodone 5 mg-acetaminophen 325 mg tablet RxNorm: 094544 1 Tablet(s) PO Q6 as needed 10/26/2016 11/09/2016 Inactive Kenalog 40 mg/mL suspension for injection RxNorm: 5505288 1 Milliliter(s) Inj 10/08/2016 10/08/2016 Inactive prednisone 5 mg tablets in a dose pack RxNorm: 641161 1 Tablet(s) PO UD 10/08/2016 10/12/2016 Inactive 6-5-4-3-2-1 Diflucan 150 mg tablet RxNorm: 715864 1 Tablet(s) PO daily 06/201610/04/2016 Inactive Diflucan 150 mg tablet RxNorm: 061519 1 Tablet(s) PO daily 06/201610/09/2016 Inactive Lexapro 10 mg tablet RxNorm: 256895 1 Tablet(s) PO QHS 201601/26/2017 Inactive cefdinir 300 mg capsule RxNorm: 292671 1 Capsule(s) PO BID 10/07/2016 Inactive Lexapro 5 mg tablet RxNorm: 364114 1 Tablet(s) PO QHS 201609/28/2016 Inactive trimethoprim 100 mg tablet RxNorm: 794148 1 Tablet(s) PO daily 09/03/2016 03/01/2017 Inactive hydrocodone 5 mg-acetaminophen 325 mg tablet RxNorm: 239044 1 Tablet(s) PO Q6 as needed 08/28/2016 09/11/2016 Inactive Diflucan 150 mg tablet RxNorm: 260961 1 Tablet(s) PO QW as needed symptoms of thrush 08/26/2016 09/28/2016 Inactive Xanax 0.25 mg tablet RxNorm: 920551 1/2-1 Tablet(s) PO TID as needed 08/24/2016 10/20/2016 Inactive tramadol 50 mg tablet RxNorm: 756378 1-2 Tablet(s) PO Q6 as needed for pain 08/14/2016 09/28/2016 Inactive amoxicillin 500 mg capsule RxNorm: 327426 1 Capsule(s) PO TID 08/11/2016 08/20/2016 Inactive nystatin 100,000 unit/mL oral suspension RxNorm: 531033 5 Milliliter(s) PO QID 08/11/2016 08/17/2016 Inactive cefdinir 300 mg capsule RxNorm: 067782 1 Capsule(s) PO BID 12/201608/20/2016 Inactive losartan 50 mg tablet RxNorm: 966582 1 Tablet(s) PO QAM 201610/24/2016 Inactive fluconazole 200 mg tablet RxNorm: 594046 1 Tablet(s) PO daily 07/19/2016 07/28/2016 Inactive cefuroxime axetil 500 mg tablet RxNorm: 432263 1 Tablet(s) PO BID 07/19/2016 08/02/2016 Inactive Xanax 0.25 mg tablet RxNorm: 882913 1/2-1 Tablet(s) PO QDAY PRN 07/14/2016 08/23/2016 Inactive cyanocobalamin (vit B-12) 1,000 mcg/mL injection solution RxNorm: 527096 1 Milliliter(s) Inj 07/14/2016 07/14/2016 Inactive Diflucan 150 mg tablet RxNorm: 129021 1 Tablet(s) PO daily 10/201607/17/2016 Inactive Keflex 250 mg capsule RxNorm: 838230 1 Capsule(s) PO QHS 201607/13/2016 Inactive Lexapro 5 mg tablet RxNorm: 579278 1 Tablet(s) PO QHS TO START AFTER YOU ARE FINISHED WITH THE DIFLUCAN!! 06/30/2016 Inactive cefuroxime axetil 250 mg tablet RxNorm: 901767 1 Tablet(s) PO BID 06/26/2016 06/25/2016 Inactive ceftriaxone 500 mg solution for injection RxNorm: 2281969 1 Milliliter(s) Inj 06/26/2016 06/26/2016 Inactive cefuroxime axetil 250 mg tablet RxNorm: 670900 1 Tablet(s) PO BID 06/26/2016 07/05/2016 Inactive Diflucan 150 mg tablet RxNorm: 567335 1 Tablet(s) PO QW as needed symptoms of thrush 06/23/2016 08/02/2016 Inactive Zantac 150 mg tablet RxNorm: 032999 1 Tablet(s) PO daily 201607/14/2016 Inactive Xanax 0.25 mg tablet RxNorm: 848168 1/2-1 Tablet(s) PO HS PRN 06/05/2016 07/13/2016 Inactive Keflex 250 mg capsule RxNorm: 011405 1 Capsule(s) PO QHS as needed 06/05/2016 07/04/2016 Inactive Cipro 500 mg tablet RxNorm: 773951 1 Tablet(s) PO BID 201606/07/2016 Inactive ceftriaxone 500 mg solution for injection RxNorm: 1938453 1 Milliliter(s) Inj 05/28/2016 05/28/2016 Inactive cefdinir 300 mg capsule RxNorm: 052762 1 Capsule(s) PO BID 05/31/2016 Inactive metronidazole 500 mg tablet RxNorm: 010686 1 Tablet(s) PO BID 05/28/2016 06/03/2016 Inactive sucralfate 1 gram tablet RxNorm: 038414 1 Tablet(s) PO AC & HS 05/21/2016 07/20/2016 Inactive sucralfate 1 gram tablet RxNorm: 709835 1 Tablet(s) PO AC & HS 05/21/2016 05/20/2016 Inactive omeprazole 40 mg capsule,delayed release RxNorm: 602021 1 Capsule(s) PO daily 05/21/2016 08/18/2016 Inactive omeprazole 40 mg capsule,delayed release RxNorm: 180947 1 Capsule(s) PO daily 05/21/2016 05/20/2016 Inactive losartan 50 mg tablet RxNorm: 841402 1 Tablet(s) PO QAM 201607/26/2016 Inactive latanoprost 0.005 % eye drops RxNorm: 178656 1 Drop(s) OPH daily No Start Date Active Culturelle 15 billion cell sprinkle capsule RxNorm: 4138092 1 Capsule(s) PO TID No Start Date Active Calcium 500 + D (D3) oral RxNorm: 172190 oral No Start Date Active cranberry 500 mg capsule RxNorm: 371337 1 Capsule(s) PO daily No Start Date Active Ocuvite Lutein and Zeaxanthin 60 mg-30 unit-15 mg-2 mg-6 mg capsule RxNorm: 525584 1 Capsule(s) PO daily No Start Date Active Pyridium 200 mg tablet RxNorm: 0119526 1 Tablet(s) PO TID as needed No Start Date Active Toviaz 4 mg tablet,extended release RxNorm: 211616 1 Tablet(s) PO daily No Start Date Active Klor-Con 10 mEq tablet,extended release RxNorm: 050930 1 Tablet(s) PO BID No Start Date Active Estrace 0.01% (0.1 mg/gram) vaginal cream RxNorm: 836494 1 Application VAG TIW No Start Date 07/13/2016 Inactive allopurinol 300 mg tablet RxNorm: 188353 1 Tablet(s) PO daily No Start Date 06/22/2016 Inactive triamterene 37.5 mg-hydrochlorothiazide 25 mg tablet RxNorm: 353614 1 Tablet(s) PO daily No Start Date 10/07/2016 Inactive Seasonique 0.15 mg-30 mcg (84)/10 mcg(7) tablets,3 month dose pack RxNorm: 106894 1 Tablet(s) PO UD No Start Date 2016 Inactive hydrocodone 5 mg-acetaminophen 325 mg tablet RxNorm: 891455 1 Tablet(s) PO as needed No Start Date 08/27/2016 Inactive meloxicam 7.5 mg tablet RxNorm: 797648 1 Tablet(s) PO daily as needed No Start Date 10/07/2016 Inactive Multivitamins FC tablet RxNorm: 1 Tablet(s) PO daily No Start Date 10/07/2016 Inactive Fish Oil 1,000 mg capsule RxNorm: 1 Capsule(s) PO BID No Start Date 05/27/2016 Inactive tramadol 50 mg tablet RxNorm: 322944 1-2 Tablet(s) PO Q6 as needed for pain No Start Date 08/13/2016 Inactive Medication Administered Medication Codes Instructions Start Date Status Kenalog 40 mg/mL suspension for injection RxNorm: 8360639 1Milliliter 10/08/2016 No longer Active cyanocobalamin (vit B-12) 1,000 mcg/mL injection solution RxNorm: 003938 1Milliliter 07/14/2016 No longer Active ceftriaxone 500 mg solution for injection RxNorm: 7324409 1Milliliter 06/26/2016 No longer Active ceftriaxone 500 mg solution for injection RxNorm: 2685978 1Milliliter 05/28/2016 No longer Active Immunizations Vaccine [...] (tract) infections ICD-10: Z87.440 ICD-9: V13.02 09/03/2016 Candidal stomatitis ICD-10: B37.0 ICD-9: 112.0 08/11/2016 Pelvic and perineal pain ICD-10: R10.2 ICD-9: KLS1112 08/11/2016 Hypo-osmolality and hyponatremia ICD-10: E87.1 ICD-9: 276.1 08/11/2016 Gastro-esophageal reflux disease without esophagitis ICD-10 [...] Item Item Code Result Date Culture Urine [id number] URINE CULTURE SEE NOTES 04/06/2017 Culture Urine [id number] Continued Results 04/06/2017 Urine Culture Ucult Complete >100,000 col/ml aerobic growth sent to ref lab 04/02/2017 Culture Urine [id number] URINE CULTURE SEE NOTES 03/22/2017 Culture Urine [id number] Continued Results 03/22/2017 Urine Culture Ucult Complete >100,000 col/ml aerobic growth sent to ref lab 03/20/2017 Comp Metabolic Zwc867 NA 131 mEq/L 03/19/2017 Comp Metabolic Krp416 K 4.0 mEq/L 03/19/2017 Comp Metabolic Kfc669 CL 93 mEq/L 03/19/2017 Comp Metabolic Kup526 CO2 28.0 mEq/L 03/19/2017 Comp Metabolic Ttu087 ANION GAP 14 03/19/2017 Comp Metabolic Uuh934 GLUCOSE 94 mg/dL 03/19/2017 Comp Metabolic Dkp936 Creat 0.8 mg/dL 03/19/2017 Comp Metabolic Izo685 eGFR 69 ml/min/1.73m2 03/19/2017 Comp Metabolic Wwy940 BUN 16 mg/dL 03/19/2017 Comp Metabolic Fsy260 B/C Ratio 19.3 Ratio 03/19/2017 Comp Metabolic Fra362 CALCIUM 9.5 mg/dL 03/19/2017 Comp Metabolic Icb168 ALK PHOS 54 U/L 03/19/2017 Comp Metabolic Opz999 AST(SGOT) 22 U/L 03/19/2017 Comp Metabolic Ief809 ALT(SGPT) 18 U/L 03/19/2017 Comp Metabolic Yfg685 BILI T 0.4 mg/dL 03/19/2017 Comp Metabolic Yjn577 ALBUMIN 4.2 g/dL 03/19/2017 Comp Metabolic Sop564 TPRO 6.2 g/dL 03/19/2017 Comp Metabolic Qvt947 GLOB 2.0 g/dL 03/19/2017 Comp Metabolic Dta489 A/G Ratio 2.2 Ratio 03/19/2017 Comp Metabolic Yyd660 Osmo 264 mOsmo 03/19/2017 Cbc With Differential [...] 34.3 pg 03/19/2017 Cbc With Differential Ord2 [place]% 10.3 % 03/19/2017 Cbc With Differential Ord2 [...] 1.49 K/ul 03/19/2017 Cbc With Differential Ord2 [place] ABS# 1.2 K/ul 03/19/2017 Cbc With Differential [...] Ord15 CALCIUM 9.3 mg/dL 08/11/2016 Culture Urine [id number] URINE CULTURE SEE NOTES 08/10/2016 Culture Urine [id number] Continued Results 08/10/2016 Urine Culture Ucult Complete >100,000 col/ml aerobic growth sent to ref lab 08/07/2016 Comp Metabolic Ioo251 NA 132 mEq/L 07/10/2016 Comp Metabolic Dtf394 K 3.9 mEq/L 07/10/2016 Comp Metabolic Agz456 CL 94 mEq/L 07/10/2016 Comp Metabolic Vtn043 CO2 28.0 mEq/L 07/10/2016 Comp Metabolic Qia546 ANION GAP 14 07/10/2016 Comp Metabolic Tua871 GLUCOSE 96 mg/dL 07/10/2016 Comp Metabolic Umb730 Creat 0.8 mg/dL 07/10/2016 Comp Metabolic Gbc933 eGFR 70 ml/min/1.73m2 07/10/2016 Comp Metabolic Cvf399 BUN 22 mg/dL 07/10/2016 Comp Metabolic Ebl457 B/C Ratio 26.8 Ratio 07/10/2016 Comp Metabolic Iqp294 CALCIUM 10.2 mg/dL 07/10/2016 Comp Metabolic Ezp831 ALK PHOS 50 U/L 07/10/2016 Comp Metabolic Rbm396 AST(SGOT) 21 U/L 07/10/2016 Comp Metabolic Sws330 ALT(SGPT) 19 U/L 07/10/2016 Comp Metabolic Lhf433 BILI T 0.5 mg/dL 07/10/2016 Comp Metabolic Ack650 ALBUMIN 4.2 g/dL 07/10/2016 Comp Metabolic Xtv867 TPRO 6.6 g/dL 07/10/2016 Comp Metabolic Cax002 GLOB 2.4 g/dL 07/10/2016 Comp Metabolic Yty317 A/G Ratio 1.8 Ratio 07/10/2016 Comp Metabolic Bbh710 Osmo 268 mOsmo 07/10/2016 Wet Prep [id number] Yeast Vaginal TNP:Duplicate Order 2016 Wet Prep [id number] Trichomonas TNP:Duplicate Order 07/10/2016 Cbc With Differential Ord2 WBC 7.98 K/ul 07/10/2016 Cbc With Differential Ord2 RBC 4.05 M/ul 07/10/2016 Cbc With Differential Ord2 HGB 14.0 g/dl 07/10/2016 Cbc With Differential Ord2 Neut% 71.3 % 07/10/2016 Cbc With Differential Ord2 HCT 40.5 % 07/10/2016 Cbc With Differential Ord2 MCV 100.0 fl 07/10/2016 Cbc With Differential Ord2 Lymph% 16.9 % 07/10/2016 Cbc With Differential Ord2 MCH 34.6 pg 07/10/2016 Cbc With Differential Ord2 [place]% 10.7 % 07/10/2016 Cbc With Differential Ord2 MCHC 34.6 pg 07/10/2016 Cbc With Differential Ord2 Eos% 0.6 % 07/10/2016 Cbc With Differential Ord2 PLT 269 K/ul 07/10/2016 Cbc With Differential Ord2 Baso% 0.5 % 07/10/2016 Cbc With Differential Ord2 RDW 13.0 % 07/10/2016 Cbc With Differential Ord2 Neut ABS# 5.69 K/ul 07/10/2016 Cbc With Differential Ord2 Lymph ABS# 1.35 K/ul 07/10/2016 Cbc With Differential Ord2 [place] ABS# 0.9 K/ul 07/10/2016 Cbc With Differential Ord2 Eos ABS# 0.1 K/ul 07/10/2016 Cbc With Differential Ord2 Baso ABS# 0.0 K/ul 07/10/2016 Wet Prep [id number] Yeast Vaginal None 07/10/2016 Wet Prep [id number] Trichomonas None 07/10/2016 Comp Metabolic Rzm529 NA 131 mEq/L 07/03/2016 Comp Metabolic Kom831 K 4.4 mEq/L 07/03/2016 Comp Metabolic Dse266 CL 92 mEq/L 07/03/2016 Comp Metabolic Zyu379 CO2 28.0 mEq/L 07/03/2016 Comp Metabolic Emw670 ANION GAP 15 07/03/2016 Comp Metabolic Oti789 GLUCOSE 96 mg/dL 07/03/2016 Comp Metabolic Lwa408 Creat 0.8 mg/dL 07/03/2016 Comp Metabolic Ndc755 eGFR 76 ml/min/1.73m2 07/03/2016 Comp Metabolic Ace424 BUN 22 mg/dL 07/03/2016 Comp Metabolic Urx344 B/C Ratio 28.9 Ratio 07/03/2016 Comp Metabolic Utq415 CALCIUM 10.3 mg/dL 07/03/2016 Comp Metabolic Khj188 ALK PHOS 49 U/L 07/03/2016 Comp Metabolic Qjl008 AST(SGOT) 21 U/L 07/03/2016 Comp Metabolic Sst540 ALT(SGPT) 19 U/L 07/03/2016 Comp Metabolic Wiv632 BILI T 0.5 mg/dL 07/03/2016 Comp Metabolic Xhe581 ALBUMIN 4.3 g/dL 07/03/2016 Comp Metabolic Sil145 TPRO 6.7 g/dL 07/03/2016 Comp Metabolic Qil206 GLOB 2.4 g/dL 07/03/2016 Comp Metabolic Tax291 A/G Ratio 1.8 Ratio 07/03/2016 Comp Metabolic Txv617 Osmo 266 mOsmo 07/03/2016 Cbc With Differential Ord2 WBC 8.91 K/ul 07/03/2016 Cbc With Differential Ord2 RBC 4.16 M/ul 07/03/2016 Cbc With Differential Ord2 HGB 14.1 g/dl 07/03/2016 Cbc With Differential Ord2 Neut% 72.5 % 07/03/2016 Cbc With Differential Ord2 HCT 41.2 % 07/03/2016 Cbc With Differential Ord2 MCV 99.0 fl 07/03/2016 Cbc With Differential Ord2 Lymph% 15.7 % 07/03/2016 Cbc With Differential Ord2 MCH 33.9 pg 07/03/2016 Cbc With Differential Ord2 [place]% 10.3 % 07/03/2016 Cbc With Differential Ord2 MCHC 34.2 pg 07/03/2016 Cbc With Differential Ord2 Eos% 0.7 % 07/03/2016 Cbc With Differential Ord2 PLT 291 K/ul 07/03/2016 Cbc With Differential Ord2 Baso% 0.8 % 07/03/2016 Cbc With Differential Ord2 RDW 13.5 % 07/03/2016 Cbc With Differential Ord2 Neut ABS# 6.46 K/ul 07/03/2016 Cbc With Differential Ord2 Lymph ABS# 1.40 K/ul 07/03/2016 Cbc With Differential Ord2 [place] ABS# 0.9 K/ul 07/03/2016 Cbc With Differential [...] Ord62 ANION GAP 12 06/11/2016 Comp Metabolic Qsd461 NA 127 mEq/L 06/05/2016 Comp Metabolic Dla693 K 4.0 mEq/L 06/05/2016 Comp Metabolic Tsf259 CL 94 mEq/L 06/05/2016 Comp Metabolic Mah074 CO2 26.0 mEq/L 06/05/2016 Comp Metabolic Uad732 ANION GAP 11 06/05/2016 Comp Metabolic Sgo616 GLUCOSE 101 mg/dL 06/05/2016 Comp Metabolic Ozt869 Creat 0.7 mg/dL 06/05/2016 Comp Metabolic Fvx927 eGFR 80 ml/min/1.73m2 06/05/2016 Comp Metabolic Aqr622 BUN 15 mg/dL 06/05/2016 Comp Metabolic Wwy157 B/C Ratio 20.5 Ratio 06/05/2016 Comp Metabolic Vra919 CALCIUM 9.2 mg/dL 06/05/2016 Comp Metabolic Opj778 ALK PHOS 43 U/L 06/05/2016 Comp Metabolic Gel207 AST(SGOT) 32 U/L 06/05/2016 Comp Metabolic Byf699 ALT(SGPT) 43 U/L 06/05/2016 Comp Metabolic Oic758 BILI T 0.4 mg/dL 06/05/2016 Comp Metabolic Aps540 ALBUMIN 4.3 g/dL 06/05/2016 Comp Metabolic Omq934 TPRO 6.2 g/dL 06/05/2016 Comp Metabolic Vwr073 GLOB 2.0 g/dL 06/05/2016 Comp Metabolic Asg030 A/G Ratio 2.2 Ratio 06/05/2016 Comp Metabolic Rfp165 Osmo 256 mOsmo 06/05/2016 Cbc With Differential Ord2 WBC 7.60 K/ul 06/05/2016 Cbc With Differential Ord2 RBC 3.79 M/ul 06/05/2016 Cbc With Differential Ord2 HGB 13.2 g/dl 06/05/2016 Cbc With Differential Ord2 Neut% 74.4 % 06/05/2016 Cbc With Differential Ord2 HCT 36.7 % 06/05/2016 Cbc With Differential Ord2 MCV 96.8 fl 06/05/2016 Cbc With Differential Ord2 Lymph% 13.6 % 06/05/2016 Cbc With Differential Ord2 MCH 34.8 pg 06/05/2016 Cbc With Differential Ord2 [place]% 11.1 % 06/05/2016 Cbc With Differential Ord2 MCHC 36.0 pg 06/05/2016 Cbc With Differential Ord2 Eos% 0.5 % 06/05/2016 Cbc With Differential Ord2 PLT 283 K/ul 06/05/2016 Cbc With Differential Ord2 Baso% 0.4 % 06/05/2016 Cbc With Differential Ord2 RDW 13.9 % 06/05/2016 Cbc With Differential Ord2 Neut ABS# 5.66 K/ul 06/05/2016 Cbc With Differential Ord2 Lymph ABS# 1.03 K/ul 06/05/2016 Cbc With Differential Ord2 [place] ABS# 0.8 K/ul 06/05/2016 Cbc With Differential Ord2 Eos ABS# 0.0 K/ul 06/05/2016 Cbc With Differential Ord2 Baso ABS# 0.0 K/ul 06/05/2016 Culture Urine [id number] URINE CULTURE SEE NOTES 06/01/2016 Culture Urine [id number] Continued Results 06/01/2016 Urine Culture Ucult Complete [...] Codes Date URINALYSIS NONAUTO W/O SCOPE CPT-4: 59038 04/01/2017 URINALYSIS NONAUTO W/O SCOPE CPT-4: 73298 03/05/2017 FLU VACC PRSV FREE INC ANTIG CPT-4: 52421 12/18/2016 ADMIN INFLUENZA VIRUS VAC CPT-4: G0008 12/18/2016 URINALYSIS NONAUTO W/O SCOPE CPT-4: 28769 11/26/2016 URINALYSIS NONAUTO W/O SCOPE CPT-4: 07986 11/06/2016 URINALYSIS NONAUTO W/O SCOPE CPT-4: 03074 10/16/2016 TRIAMCINOLONE ACET INJ NOS CPT-4: J3301 10/08/2016 URINALYSIS NONAUTO W/O SCOPE CPT-4: 23842 09/03/2016 URINALYSIS NONAUTO W/O SCOPE CPT-4: 22968 08/24/2016 URINALYSIS NONAUTO W/O SCOPE CPT-4: 65220 08/06/2016 THER/PROPH/DIAG INJ SC/IM CPT-4: 16272 07/14/2016 VITAMIN B12 INJECTION CPT-4: J3420 07/14/2016 URINALYSIS NONAUTO W/O SCOPE CPT-4: 35655 07/03/2016 THER/PROPH/DIAG INJ SC/IM CPT-4: 72880 06/26/2016 ROCEPHIN, PER 250 MG CPT-4: J0696 06/26/2016 URINALYSIS NONAUTO W/O SCOPE CPT-4: 77846 06/23/2016 URINALYSIS NONAUTO W/O SCOPE CPT-4: 63607 06/11/2016 URINALYSIS NONAUTO W/O SCOPE CPT-4: 71855 05/28/2016 THER/PROPH/DIAG INJ SC/IM CPT-4: 69951 05/28/2016 ROCEPHIN, PER 250 MG CPT-4: J0696 05/28/2016 REMOVAL OF IMPACTED WAX CPT-4: G0268 05/06/2016 Vital Signs Date Vital 03/19/2017 Blood Pressure 1: 144/76 Code : 8480-6 BMI: 26.3 Code : 67859-6 Heart Rate 1 : 102 bpm Height: 5'4" SpO2: 98% Temperature: 36.8 (C) / 98.3 (F) Weight: 153 lbs 03/08/2017 Blood Pressure 1: 136/80 Code : 8480-6 BMI: 26.9 Code : 09622-9 Heart Rate 1 : 76 bpm Height: 5'4" SpO2: 96% Weight: 157 lbs 02/02/2017 Blood Pressure 1: 148/68 Code : 8480-6 BMI: 26.9 Code : 01236-2 Heart Rate 1 : 76 bpm Height: 5'4" SpO2: 97% Weight: 157 lbs 01/15/2017 Blood Pressure 1: 142/76 Code : 8480-6 BMI: 26.9 Code : 66888-9 Heart Rate 1 : 86 bpm Height: 5'4" SpO2: 97% Weight: 157 lbs 12/30/2016 Blood Pressure 1: 140/76 Code : 8480-6 BMI: 26.9 Code : 40504-6 Heart Rate 1 : 84 bpm Height: 5'4" SpO2: 97% Weight: 157 lbs 12/22/2016 Blood Pressure 1: 130/78 Code : 8480-6 BMI: 26.9 Code : 80628-5 Heart Rate 1 : 80 bpm Height: 5'4" SpO2: 97% Weight: 157 lbs 12/18/2016 BMI: 26.9 Code: 56855-8 Height: 5'4" Weight: 157 lbs 11/20/2016 Blood Pressure 1: 134/60 Code : 8480-6 BMI: 25.9 Code : 85533-5 Heart Rate 1 : 80 bpm Height: 5'4" SpO2: 97% Weight: 151 lbs 11/16/2016 BMI: 25.6 Code: 82685-8 Heart Rate 1: 74 bpm Height: 5'4" SpO2: 97% Weight: 149 lbs 10/28/2016 Blood Pressure 1: 128/70 Code : 8480-6 BMI: 25.7 Code : 24885-6 Heart Rate 1 : 70 bpm Height: 5'4" SpO2: 96% Weight: 150 lbs 10/13/2016 Blood Pressure 1: 130/78 Code : 8480-6 Heart Rate 1: 69 bpm Height: 5'4" SpO2: 98% 10/08/2016 Blood Pressure 1: 122/70 Code : 8480-6 BMI: 25.6 Code : 77297-9 Heart Rate 1 : 79 bpm Height: 5'4" SpO2: 97% Temperature: 37.0 (C) / 98.6 (F) Weight: 149 lbs 09/29/2016 Blood Pressure 1: 124/70 Code : 8480-6 BMI: 25.4 Code : 34899-7 Heart Rate 1 : 74 bpm Height: 5'4" SpO2: 94% Weight: 148 lbs 09/03/2016 Blood Pressure 1: 120/68 Code : 8480-6 BMI: 24.7 Code : 32921-4 Heart Rate 1 : 59 bpm Height: 5'4" SpO2: 97% Weight: 144 lbs 08/24/2016 Blood Pressure 1: 128/74 Code : 8480-6 BMI: 24.7 Code : 00116-2 Heart Rate 1 : 75 bpm Height: 5'4" SpO2: 97% Weight: 144 lbs 08/11/2016 Blood Pressure 1: 142/76 Code : 8480-6 BMI: 24.9 Code : 71141-5 Heart Rate 1 : 77 bpm Height: 5'4" SpO2: 96% Weight: 145 lbs 08/03/2016 Blood Pressure 1: 142/78 Code : 8480-6 BMI: 25.1 Code : 48159-6 Heart Rate 1 : 75 bpm Height: 5'4" SpO2: 97% Temperature: 36.9 (C) / 98.5 (F) Weight: 146 lbs 07/27/2016 Blood Pressure 1: 158/80 Code : 8480-6 BMI: 25.1 Code : 02292-9 Heart Rate 1 : 72 bpm Height: 5'4" SpO2: 98% Weight: 146 lbs 07/21/2016 Blood Pressure 1: 144/76 Code : 8480-6 BMI: 25.1 Code : 46190-3 Heart Rate 1 : 80 bpm Height: 5'4" SpO2: 94% Temperature: 37.3 (C) / 99.2 (F) Weight: 146 lbs 07/14/2016 Blood Pressure 1: 128/74 Code : 8480-6 BMI: 25.1 Code : 82491-6 Heart Rate 1 : 79 bpm Height: 5'4" SpO2: 97% Temperature: 37.2 (C) / 98.9 (F) Weight: 146 lbs 8 oz 07/10/2016 Blood Pressure 1: 148/78 Code : 8480-6 BMI: 25.1 Code : 50533-8 Heart Rate 1 : 82 bpm Height: 5'4" SpO2: 96% Temperature: 37.2 (C) / 99.0 (F) Weight: 146 lbs 8 oz 07/03/2016 Blood Pressure 1: 134/76 Code : 8480-6 Heart Rate 1: 79 bpm Height: 5'4" SpO2: 98% Temperature: 36.9 (C) / 98.4 (F) 06/30/2016 Blood Pressure 1: 138/78 Code : 8480-6 BMI: 25.1 Code : 14790-3 Heart Rate 1 : 90 bpm Height: 5'4" SpO2: 97% Weight: 146 lbs 06/23/2016 Blood Pressure 1: 132/58 Code : 8480-6 BMI: 25.7 Code : 38853-8 Heart Rate 1 : 85 bpm Height: 5'4" SpO2: 97% Weight: 150 lbs 06/15/2016 Blood Pressure 1: 134/62 Code : 8480-6 BMI: 26.4 Code : 51556-4 Heart Rate 1 : 75 bpm Height: 5'4" SpO2: 95% Weight: 154 lbs 06/05/2016 Blood Pressure 1: 156/80 Code : 8480-6 BMI: 26.4 Code : 43453-9 Heart Rate 1 : 92 bpm Height: 5'4" SpO2: 98% Weight: 154 lbs 06/01/2016 Blood Pressure 1: 135/80 Code : 8480-6 Heart Rate 1: 95 bpm SpO2: 97% Temperature: 37.1 (C) / 98.8 (F) 05/28/2016 Blood Pressure 1: 140/80 Code : 8480-6 BMI: 26.1 Code : 88489-4 Heart Rate 1 : 89 bpm Height: 5'4" SpO2: 96% Weight: 152 lbs 05/11/2016 Blood Pressure 1: 154/86 Code : 8480-6 Heart Rate 1: 89 bpm Height: 5'4" SpO2: 95% Weight: 04/30/2016 Blood Pressure 1: 142/72 Code : 8480-6 BMI: 26.3 Code : 53673-0 Heart Rate 1 : 87 bpm Height: [...] data Encounters Encounter Performer Location Codes Date [id number] EST. PATIENT, LEVEL III Diagnosis: Dysuria[ICD10: R30.0] Diagnosis: Other malaise[ICD10: R53.81] Diagnosis: Other fatigue[ICD10: R53.83] Diagnosis: Generalized anxiety disorder[ICD10: F41.1] Meli Amador MD, [facility] CPT-4: 45296 03/19/2017 [id number] EST. PATIENT, LEVEL III Diagnosis: Left lower quadrant pain[ICD10: R10.32] Meli Amador MD, [facility] CPT-4: 55042 03/08/2017 [id number] EST. PATIENT, LEVEL III Diagnosis: Dysuria[ICD10: R30.0] Diagnosis: Generalized anxiety disorder[ICD10: F41.1] Meli Amador MD, [facility] CPT-4: 66094 02/02/2017 [id number] EST. PATIENT, LEVEL III Diagnosis: Generalized anxiety disorder[ICD10: F41.1] Diagnosis: Urinary tract infection, site not specified[ICD10: N39.0] M[facility] Amador MD, [facility] [facility] CPT-4: 35232 01/15/2017 64070 EST. PATIENT, LEVEL IV Diagnosis: Dysuria[ICD10: R30.0] Diagnosis: Rash and other nonspecific skin eruption[ICD10: R21] Meli Amador MD, [facility] CPT-4: 89825 12/30/2016 80129 EST. PATIENT, LEVEL IV Diagnosis: Localized edema[ICD10: R60.0] Diagnosis: Pain in left lower leg[ICD10: M79.662] Diagnosis: Dysuria[ICD10: R30.0] Meli Amador MD, [facility] CPT-4: 61574 12/22/2016 88933 EST. PATIENT, LEVEL IV Diagnosis: 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[ICD10: I83.92] Diagnosis: Urinary tract infection, site not specified[ICD10: N39.0] Diagnosis: Encounter for immunization[ICD10: Z23] Meli Amador MD, [facility] CPT-4: 56047 12/18/2016 ([id number]) 73275 EST. PATIENT, LEVEL III Diagnosis: 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[ICD10: I83.92] Diagnosis: Urinary tract infection, site not specified[ICD10: N39.0] Josiane Amador MD , [facility] CPT-4: 79447 11/20/2016 01963 EST. PATIENT, LEVEL III Diagnosis: Dysuria[ICD10: R30.0] Meli Amador MD, [facility] CPT-4: 13181 11/16/2016 ([id number]) 89224 EST. PATIENT, LEVEL III Diagnosis: Generalized anxiety disorder[ICD10: F41.1] Diagnosis: Urinary tract infection, site not specified[ICD10: N39.0] Mera Amador MD [facility] CPT-4: 67532 10/28/2016 ([id number]) 60689 EST. 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 CPT-4: 08128 10/13/2016 ([id number]) 35758 EST. 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 CPT-4: 46088 10/08/2016 ([id number]) 78657 EST. PATIENT, LEVEL III Diagnosis: Dysuria[ICD10: R30.0] Diagnosis: Essential (primary) hypertension[ICD10: I10] Mera Amador MD [facility] CPT-4: 38543 09/29/2016 ([id number]) 24563 EST. PATIENT, LEVEL III Diagnosis: Generalized anxiety disorder[ICD10: F41.1] Diagnosis: Dysuria[ICD10: R30.0] Diagnosis: Personal history of urinary (tract) infections[ICD10: Z87.440] Mera Amador MD [facility] CPT-4: 73406 09/03/2016 ([id number]) 25183 EST. PATIENT, LEVEL IV Diagnosis: Essential (primary) hypertension[ICD10: I10] Diagnosis: Generalized anxiety disorder[ICD10: F41.1] Diagnosis: Dysuria[ICD10: R30.0] Mera Amador MD [facility] CPT-4: 05841 08/24/2016 29365 EST. PATIENT, LEVEL IV Diagnosis: Hypo-osmolality and hyponatremia[ICD10: E87.1] Diagnosis: Generalized anxiety disorder[ICD10: F41.1] Diagnosis: Pelvic and perineal pain[ICD10: R10.2] Diagnosis: Candidal stomatitis[ICD10: B37.0] Meli Amador MD, [facility] CPT -4: 67320 08/11/2016 ([id number]) 57511 EST. PATIENT, LEVEL III Diagnosis: Generalized anxiety disorder[ICD10: F41.1] Diagnosis: Pelvic and perineal pain[ICD10: R10.2] Josiane Amador MD, [facility] CPT-4: 59093 08/03/2016 59718 EST. PATIENT, LEVEL IV Diagnosis: Generalized anxiety disorder[ICD10: F41.1] Diagnosis: Pelvic and perineal pain[ICD10: R10.2] Diagnosis: Gastro-esophageal reflux disease without esophagitis[ICD10: K21.9] Meli Amador MD, [facility] CPT-4: 95924 07/27/2016 ([id number]) 97901 EST. PATIENT, LEVEL III Diagnosis: Urinary tract infection, site not specified[ICD10: N39.0] Diagnosis: Gastro-esophageal reflux disease without esophagitis[ICD10: K21.9] Diagnosis: Generalized anxiety disorder[ICD10: F41.1] Josiane Amador MD, [facility] CPT-4: 02678 07/21/2016 ([id number]) 81295 EST. PATIENT, LEVEL III Diagnosis: Generalized anxiety disorder[ICD10: F41.1] Diagnosis: Essential (primary) hypertension[ICD10: I10] Diagnosis: Vitamin B12 deficiency anemia, unspecified[ICD10: D51.9] Josiane Amador MD , [facility] CPT-4: 27897 07/14/2016 ([id number]) 85288 EST. PATIENT, LEVEL IV Diagnosis: Hypo-osmolality and hyponatremia[ICD10: E87.1] Diagnosis: Other specified noninflammatory disorders of vagina[ICD10: N89.8] Diagnosis: Essential (primary) hypertension[ICD10: I10] Diagnosis: Major depressive disorder, recurrent, mild[ICD10: F33.0] Josiane Amador MD , [facility] CPT-4: 20077 07/10/2016 ([id number]) 74888 EST. PATIENT, LEVEL III Diagnosis: Urinary tract infection, site not specified[ICD10: N39.0] Diagnosis: Hypo-osmolality and hyponatremia[ICD10: E87.1] Josiane Amador MD, [facility] CPT-4: 85824 07/03/2016 75484 EST. PATIENT, LEVEL IV Diagnosis: Generalized anxiety disorder[ICD10: F41.1] Diagnosis: Major depressive disorder, recurrent, mild[ICD10: F33.0] Diagnosis: Hypo-osmolality and hyponatremia[ICD10: E87.1] Meli Amador MD, [facility] CPT-4: 97041 06/30/2016 ([id number]) 68682 EST. PATIENT, LEVEL III Diagnosis: Hypo-osmolality and hyponatremia[ICD10: E87.1] Diagnosis: Dysuria[ICD10: R30.0] Diagnosis: Essential (primary) hypertension[ICD10: I10] Mera Amador MD, [facility] CPT-4: 58267 06/23/2016 72165 EST. PATIENT, LEVEL III Diagnosis: Candidal stomatitis[ICD10: B37.0] Diagnosis: Gastro-esophageal reflux disease without esophagitis[ICD10: K21.9] Diagnosis: Hypo-osmolality and hyponatremia[ICD10: E87.1] Meli Amador MD, [facility] CPT-4: 53370 06/15/2016 ([id number]) 43573 EST. PATIENT, LEVEL III Diagnosis: Essential (primary) hypertension[ICD10: I10] Diagnosis: Hypo-osmolality and hyponatremia[ICD10: E87.1] Diagnosis: Urinary tract infection, site not specified[ICD10: N39.0] Josiane Amador MD [facility] CPT-4: 26273 06/05/2016 ([id number]) 15247 EST. PATIENT, LEVEL III Diagnosis: Urinary tract infection, site not specified[ICD10: N39.0] Josiane Amador MD [facility] CPT-4: 59665 06/01/2016 ([id number]) 39558 EST. PATIENT, LEVEL IV Diagnosis: Hypo-osmolality and hyponatremia[ICD10: E87.1] Diagnosis: Essential (primary) hypertension[ICD10: I10] Diagnosis: Hyperuricemia without signs of inflammatory arthritis and tophaceous disease[ICD10: E79.0] Diagnosis: Urinary tract infection, site not specified[ICD10: N39.0] Mera Amador MD [facility] CPT-4: 50339 05/28/2016 ([id number]) 19654 EST. PATIENT, LEVEL III Diagnosis: Pain in left toe(s)[ICD10: M79.675] Diagnosis: Tinea unguium[ICD10: B35.1] [facility] CPT-4: 50361 05/11/2016 ([id number]) OFFICE VISIT, NEW - LEVEL 4 Diagnosis: Essential (primary) hypertension[ICD10: I10] Diagnosis: Hypo-osmolality and hyponatremia[ICD10: E87.1] [facility] CPT-4: 92198 04/30/2016 Plan of Care Planned Activity Notes [...] medications. 03/19/2017 [facility]ointment[phone] [phone] ([facility] min[facility] Complex 03/19/2017 Patient Education: Patient [...] or concerns. 03/08/2017 Appointment: [facility] [phone] [facility] (30 min) Complex 03/08/2017 Patient Education: Patient [...] medications. 02/02/2017 Appointment: [phone] [facility] (30 min) Complex 02/02/2017 Patient Education: Patient [...] discharge. 12/30/2016 Appointment: [phone] [facility] (30 min) Complex 12/30/2016 Patient Education: Patient [...] repeat UA today, infectious disease clinic in [place] is reviewing her case to make her an appointment, no other changes at this time. 12/22/2016 Appointment: [phone] [facility] (15 min) Moderate 12/22/2016 Patient Education: Patient Medication Summary Completed 12/22/2016 Care Plan: VASCULAR STUDY Pending 12/22/2016 Care Plan: Referral Order SNOMED-CT : [id number] Pending 12/20/2016 Visit Plan: Varicose veins - [...] like to be referred to someone in [place] instead of at - will look into referral to specialist in [place]. 12/18/2016 Appointment: Meli Malone WPtel: [facility]5 [facility] (15 min) Moderate 12/18/2016 Patient Education: Patient Medication Summary Completed 12/18/2016 Appointment: Lab Draw 12/04/2016 Appointment: Meli Malone WPtel: [facility] (30 min) Complex 11/27/2016 Visit Plan: UA negative - pt was feeling better on the diflucan - will refill RX x 1 - pt has an appointment with Urogynecology on . 11/26/2016 Appointment: Lab Draw 11/26/2016 Patient Education: Patient Medication Summary Completed 11/26/2016 Visit Plan: Varicose veins-recommend compression stockings- monitor symptoms and call if uncontrolled UTI-culture urine 11/20/2016 Appointment: Josiane Berry WPtel: [facility]5 [phone] [place] (30 min) Complex 11/20/2016 Patient Education: [...] concerns. 11/16/2016 Appointment: [phone] [facility] [place] (15 min) Moderate 11/16/2016 Patient Education: [...] improved. 10/28/2016 App[facility]ment: [phone] [place] (15 min) Moderate 10/28/2016 Patient Education: Patient Medication Summary Completed 10/28/2016 Appointment: Lab Draw 10/16/2016 Patient Education: Patient Medication Summary Completed 10/16/2016 Visit Plan: Allergies-continue claritin-add flonase as directed UTI-UA negative-symptoms resolved Cpvwy-mnvzgbeg-umflbot with upset stomach and feels more anxious/jittery-likely due to prednisone-stay off prednisone and call if symptoms do not resolve. Patient and caregiver verbalized understanding of plan. 10/13/2016 Visit Plan: Allergies-continue claritin-add flonase as directed UTI-UA negative-symptoms resolved Cqzdk-jxbndfja-xealzsv with upset stomach and feels more anxious/jittery-likely due to prednisone-stay off prednisone and call if symptoms do not resolve. Patient and caregiver verbalized understanding of plan. 10/13/2016 Appointment: Josiane Berry WPtel: [phone] [phone] [place] (15 min) Moderate 10/13/2016 Patient Education: Patient Medication Summary Completed 10/13/2016 Visit Plan: Allergic reaction-suspect due to cefdinir- kenalog injection today in the office-start prednisone tomorrow-start oral anti histamine such as claritin or zyrtec as directed-call if symptoms do not resolve , ER if any worse. Patient and friend verbalized understanding of plan. 10/08/2016 Appointment: Josiane Berry WPtel: [facility]3 [phone] [place] (30 min) Complex 10/08/2016 Patient Education: [...] in November. 09/29/2016 Appointment: Mera Amador WPtel: [facility]3 [facility] (15 min) Moderate 09/29/2016 Patient Education: Patient Medication Summary Completed 09/29/2016 Appointment: Mera Amador WPtel: [facility]0 [facility] [place] (15 min) Moderate 09/23/2016 Appointment: Lab Draw 09/09/2016 Visit Plan: Anxiety - uncontrolled - restart the LEXAPRO 5mg at bedtime. Recurrent urinary tract infection - start on the PREVENTATIVE antibiotic trimethoprim 100mg daily. 09/03/2016 Appointment: Mera Amador WPtel: [facility]4 [facility] [place] (15 min) Moderate 09/03/2016 Patient [...] medications. 08/24/2016 Appointment: Mera Amador WPtel: [phone] [facility] (15 min) Moderate 08/24/2016 Patient Education: Patient [...] or concerns. 08/11/2016 Appointment: Meli Malone WPtel: [facility]2 [facility] (30 min) Complex 08/11/2016 Patient Education: Patient Medication Summary Completed 08/11/2016 Appointment: Lab Draw 08/06/2016 Patient Education: Patient Medication Summary Completed 08/06/2016 Appointment: Josiane Berry WPtel: [facility]9 [phone] [place] (15 min) Moderate 08/04/2016 Visit Plan: Anxiety-continue lexapro-xanax prn-no changes in medications today Pelvic pain-UA negative-patient to see Dr Abraham for GYROSCOPIC INSTRUMENT MECHANIC evaluation 08/03/2016 Appointment: Josiane Berry WPtel: [facility]0 [phone] [place] (10 min) Simple 08/03/2016 Patient Education: [...] above medications. 07/27/2016 Appointment: Meli Malone WPtel: [facility]4 [facility] (15 min) Moderate 07/27/2016 Patient Education: [...] Dr Hughes 07/21/2016 Appointment: Josiane Berry WPtel: [facility]9 [phone] (15 min) Moderate 07/21/2016 Patient Education: Patient [...] in medications 07/14/2016 Appointment: Josiane Berry WPtel: [facility]9 [phone] (30 min) Complex 07/14/2016 Patient Education: Patient [...] labs 07/10/2016 Appointment: Josiane Berry WPtel: [phone] [phone] (15 min) Moderate 07/10/2016 Patient Education: Patient Medication Summary Completed 07/10/2016 Visit Plan: UTI-finish cefuroxime-then start preventative abx-recheck UA in 1 week Low sodium-check labs today Depression-start the lexapro as directed 07/03/2016 Appointment: Josiane Berry WPtel: [phone] [phone] (15 min) Moderate 07/03/2016 Patient Education: Patient [...] patient. 06/30/2016 Appointment: Meli Malone WPtel: [phone] [facility] (30 min) Complex 06/30/2016 Patient Education: Patient [...] serially 06/23/2016 Appointment: Mera Amador WPtel: [phone] [facility] (15 min) Moderate 06/23/2016 Patient Education: Patient [...] monitor labs. 06/15/2016 Appointment: Meli Malone WPtel: [address] [place], [place] [phone] (10 min) Simple 06/15/2016 Patient Education: Patient Medication Summary Completed 06/15/2016 Appointment: Lab Draw 06/11/2016 Patient Education: Patient Medication Summary Completed 06/11/2016 Patient Education: Patient Medication Summary Completed 06/11/2016 Visit Plan: HTN-slightly elevated today-no change in treatment Low sodium-check labs today-increase gatorade if needed UTI-finish cipro Anxiety-xanax RX provided and instructed on use-will use for a short time 06/05/2016 Appointment: Josiane Berry WPtel: [facility]6 [phone] (15 min) Moderate 06/05/2016 Patient Education: Patient Medication Summary Completed 06/05/2016 Visit Plan: UTI-persistent symptoms-stop cefdinir start cipro as directed-repeat UA upon completion of abx-continue estrace cream as directed-keep appt with Dr Hughes 06/01/2016 Appointment: Josiane Berry WPtel: [facility]4 [phone] (15 min) Moderate 06/01/2016 Patient Education: Patient [...] times daily. 05/28/2016 Appointment: Mera Amador WPtel: [facility] (15 min) Moderate 05/28/2016 Patient Education: Patient Medication Summary Completed 05/28/2016 Visit Plan: Left great toe pain-with fungal infection of nail-- large nail nippers and dremmel used to trim dystrophic, thickened, elongated toenail left great toe-patient verbalized relief from pain. Instructed patient to call if symptoms return or other concerns. 05/11/2016 Appointment: [facility]: [phone] [phone] [place] (15 min) Moderate 05/11/2016 Patient Education: [...] monitor symptoms. 04/30/2016 Appointment: Mera Amador WPtel: [facility] New Patient 04/30/2016 Patient Education: Patient Medication Summary Completed 04/30/2016 Referral: External, Ordering Provider Referral Initiated Instructions Comment compression stockings . Varicose veins-recommend compression stockings-monitor symptoms and call if uncontrolled UTI-culture urine . Hypertension - well controlled - continue with current medications, continue with no added salt diet. Pt has been encouraged to exercise daily. The pt has been advised to call the office if there are any acute concerns about change in blood pressure readings at home. Hyponatremia - continue with gatorade. Monitor labs serially Once the medrol dose pack is finished [...] cystoscopy if her symptoms were not improved. VICKS VAPOR RUB TO BASE OF TOENAIL NIGHTLY USE A LITTLE PIECE OF COTTON UNDER EDGE OF NAIL TO KEEP IT FROM INGROWING . Left great toe pain-with fungal infection of nail-- large nail nippers and dremmel used to trim dystrophic, thickened, elongated toenail left great toe- patient verbalized relief from pain. Instructed patient to call if symptoms return or other concerns. bathroom wipe with aloe if possible - [...] take the probiotic culturelle three times daily. Try G2 if the gatorade is too [...] her stomach as much - monitor labs. . Dysuria - resolved - defer to [...] situational exposure. No change in current medications. 3 cups a day of the [...] has been appropriately prescribed for this patient. STOP THE ESTRACE CREAM AND THE KEFLEX [...] in the office HTN-no change in medications change the xanax to 1/2 pill three [...] benefits of treatment with the above medications. Continue cefuroxime as prescribed. Fluconazole is [...] benefits of treatment with the above medications. Cipro - take 500mg twice a day [...] plan, or with any questions or concerns. increase the probiotic to three times a [...] Hyponatremia - check labs - monitor symptoms. . Allergies-continue claritin-add flonase as directed UTI-UA negative-symptoms resolved Ewucq-getwdgan-ofozwii with upset stomach and feels more anxious/jittery-likely due to prednisone-stay off prednisone and call if symptoms do not resolve. Patient and caregiver verbalized understanding of plan. . Allergies-continue claritin-add flonase as directed UTI-UA negative-symptoms resolved Uhpqm-aaqldllx-kiugymo with upset stomach and feels more anxious/jittery-likely due to prednisone-stay off prednisone and call if symptoms do not resolve. Patient and caregiver verbalized understanding of plan. RESTSART OMEPRAZOLE KEEP APPOINTMENT WITH DR HUGHES [...] complete-instructed patient to f/u with Dr Hughes FINISH CIPRO THEN START THE ANTIBIOTIC FROM [...] on use-will use for a short time . Anxiety - uncontrolled - restart the LEXAPRO 5mg at bedtime. Recurrent urinary tract infection - start on the PREVENTATIVE antibiotic trimethoprim 100mg daily. . Anxiety-continue lexapro-xanax prn-no changes in medications today Pelvic pain-UA negative-patient to see Dr Abraham for GYROSCOPIC INSTRUMENT MECHANIC evaluation FINISH ANTIBIOTIC-START PREVENTATIVE ANTIBIOTIC AFTER YOU FINISH THE CEFUROXIME CALL WEDNESDAY WITH UPDATE . UTI-finish cefuroxime-then start preventative abx-recheck UA in 1 week Low sodium-check labs today Depression-start the lexapro as directed . UA negative - pt was feeling better on the diflucan - will refill RX x 1 - pt has an appointment with Urogynecology on 12/16. Thigh high compression stockings. . Varicose veins [...] like to be referred to someone in [place] instead of at - will look into referral to specialist in [place]. STOP THE CEFDINIR AND FLUCONAZOLE START CLARITIN [...] repeat UA today, infectious disease clinic in [place] is reviewing her case to make her [...] today in the office Low sodium-check labs . Dysuria, fatigue, malaise - will check [...] situational exposure. No change in current medications. stop cefdinir continue flagyl start cipro 500mg [...]
[2017-05-04 08:43] VITALS: BP 147/91
--- NOTE | 2017-05-04 09:44 | Progress Note-Pre Operative ---
Pre-Operative Progress Note H&P Reviewed The H&P was reviewed, patient examined and no changes noted. Date Seen by Provider: May 04, 2017 Time Seen by Provider: :44 Date H&P Reviewed: May 04, 2017 Time H&P Reviewed: 09:44 Pre-Operative Diagnosis: bright red blood per rectum, change in bowel habits SAL PORTILLO DO May 04, 2017 09:44
[2017-05-04] MEDS ORDERED: proPOfol 200 MG/20 ML (DIPRIVAN) VIAL IV ONE (09:45)
--- NOTE | 2017-05-04 10:27 | Progress Note-Post Operative ---
Post-Operative Progess Note Surgeon (s)/Mobility Architect (s) Surgeon SAL PORTILLO DO Mobility Architect: na Pre-Operative Diagnosis bright red blood per rectum, change in bowel habits Post-Operative Diagnosis colon polyps, diverticulosis Procedure & Operative Findings Date of Procedure 05/04/17 Procedure Performed/Findings colonoscopy c hot bx polypectomy x 2 Anesthesia Type per mda Estimated Blood Loss Estimated blood loss (mL): none Specimens/Packing Specimens Removed ascending colon polyp (biopsy did not make out of channel of scope), sigmoid colon SAL PORTILLO DO May 04, 2017 10:27
--- NOTE | 2017-05-04 10:29 | Discharge Inst-Simple/Standard ---
Discharge Inst-Standard Patient Instructions/Follow Up Plan of Care/Instructions/FU: 2 weeks Rom Activity as Tolerated: Yes Discharge Diet: Regular Diet (high fiber) SAL PORTILLO DO May 04, 2017 10:29
[2017-05-04 10:40] VITALS: BP 142/56
[2017-05-04 11:05] VITALS: BP 151/74
[2017-05-04 11:12] VITALS: BP 151/74
--- NOTE | 2017-05-04 16:19 | OPERATIVE REPORT ---
DATE OF SERVICE: 05/04/2017 PREOPERATIVE DIAGNOSES: Change in bowel habits, bright red blood per rectum. POSTOPERATIVE DIAGNOSES: Colon polyps and diverticulosis. PROCEDURE: Colonoscopy with hot biopsy polypectomy x2. SURGEON: Sal Cueto DO ANESTHESIA: Per MDA. ESTIMATED BLOOD LOSS: None. COMPLICATIONS: None. INDICATIONS: The patient is an 87-year-old female who has had change in bowel habits and has some bright red blood per rectum. She understands risks and benefits of procedure and wished to proceed with procedure. Consent was signed on the chart. DESCRIPTION OF PROCEDURE: The patient was taken to the endoscopy suite, placed in left lateral recumbent position. Timeout was performed. Digital rectal exam was performed and there were no palpable polyps, mass or ulcerations. The scope was inserted in the rectum and advanced all the way to the cecum with minimal difficulty. Prep was adequate. Scope was then slowly retracted back. There were no polyps, mass or ulcerations in the cecum. In the ascending colon, there was a small polyp, which hot biopsy polypectomy was performed. Specimen did not make it through the channel of the scope and was unable to be obtained. Scope was continued slowly retracted back. There were no polyps, masses or ulcerations within the remainder of the ascending colon, transverse and descending colon. Within the sigmoid colon, there was mild amount of diverticulosis. There was also another polyp, which hot biopsy polypectomy was performed. Scope was continued slowly retracted back into the rectum where it was also retroflexed noting no other pathology. Scope was returned to its normal position, slowly withdrawn until completely removed. The patient tolerated the procedure well without any complications. She was taken to the recovery room in stable condition. RECOMMENDATIONS: The patient will need a high-fiber diet. She will follow up in the office in 2 weeks to discuss pathology. I do not feel patient would benefit from any further endoscopy unless symptoms indicated. Job ID: [id number] DocumentID: [id number] Dictated Date: 05/04/2017 10:32:46 Ldr Nurse Date: 05/04/2017 16:18:27 Dictated By: SAL CUETO DO
== END 2017-05-04 11:13 | disposition home or self-care (01) ==
LOC: ENDO 08:21
PROVIDERS: ATTEND Surgery
DX: D12.5 Benign neoplasm of sigmoid colon (principal); K57.20 Diverticulitis of large intestine with perforation and abscess without bleeding; I10 Essential (primary) hypertension; F32.9 Major depressive disorder, single episode, unspecified; Z79.899 Other long term (current) drug therapy; Z79.52 Long term (current) use of systemic steroids

== ENCOUNTER 2017-06-13 13:07 | Emergency (ER) | payer MEDICARE ==
[~2017-06-13] VITALS: Ht 160 cm; Wt 75.3 kg
[2017-06-13 13:39] LABS: BILIRUBIN,URINE NEGATIVE (NEGATIVE); CLARITY,URINE CLEAR; COLOR,URINE YELLOW; GLUCOSE, URINE (UA) NEGATIVE (NEGATIVE); KETONES,URINE NEGATIVE (NEGATIVE); LEUKOCYTE ESTERASE ,URINE NEGATIVE (NEGATIVE); NITRITE,URINE NEGATIVE (NEGATIVE); PH,URINE 8 (5-9); PROTEIN,URINE NEGATIVE (NEGATIVE); UROBILINOGEN,URINE NORMAL (NORMAL)
[2017-06-13] MEDS ORDERED: ONDANSETRON 4 MG/2 ML (SDV) Z0FRAN IVP ONE (14:00)
[2017-06-13 14:04] LABS: BASOPHILS % (AUTO) 0 % (0-10); EOSINOPHILS % (AUTO) 1 % (0-10); HEMATOCRIT 39 % (35-52); HEMOGLOBIN 13.6 G/DL (11.5-16.0); LYMPHOCYTES # (AUTO) 1.2 X 10^3 (1.0-4.0); LYMPHOCYTES % (AUTO) 14 % (12-44); MEAN CORPUSCULAR HEMOGLOBIN 33 PG (25-34); MEAN CORPUSCULAR HGB CONC 35 G/DL (32-36); MEAN CORPUSCULAR VOLUME 96 FL (80-99); MEAN PLATELET VOLUME 9.2 FL (7.4-10.4); MONOCYTES # (AUTO) 0.9 X 10^3 (0.0-1.0); MONOCYTES % (AUTO) 10 % (0-12); NEUTROPHILS # (AUTO) 6.1 X 10^3 (1.8-7.8); NEUTROPHILS % (AUTO) 74 % (42-75); PLATELET COUNT 282 10^3/uL (130-400); RED BLOOD COUNT 4.07 10^6/uL (4.35-5.85); RED CELL DISTRIBUTION WIDTH 13.6 % (10.0-14.5); WHITE BLOOD COUNT 8.3 10^3/uL (4.3-11.0)
[2017-06-13 14:06] LABS: BACTERIA,URINE NEGATIVE /HPF; RBC,URINE RARE /HPF
--- NOTE | 2017-06-13 14:08 | ED General ---
General Chief Complaint: Dizziness/Syncope Stated Complaint: DIZZINESS,FREQUENT FALLS Nursing Triage Note: PT STATES DIZZINESS THAT STARTED THIS A.M. WITH UPSET STOMACH, HAS NOT VOMITED. TOLD HER "HER SALT WAS LOW." PT FELL BACK OUT OF HER CHAIR THIS MORMING BUT DENIES HURTING HERSELF. Nursing Sepsis Screen: No Definite Risk Source of Information: Patient History of Present Illness Date Seen by Provider: Jun 13, 2017 Time Seen by Provider: 14:04 Initial Comments The patient is a charming 87-year-old white female who presents with complaints of dizziness and frequent falls. She is alert and gives apparently good and consistent history. She states that she has been feeling slow and [place] for the past couple of days. This morning she noted dizziness which she states is really more lightheadedness. It seems to increase a bit when she turns her head but there is no sense of motion either of the room or the patient. Her vision does not seem to be a problem. She states that in the past she was told that she had a low sodium. She takes a water pill and states that she was told that she just had to do so. In addition although she has not she works avidly at taking lots of liquids by mouth. She reports only minimum pedal edema. She states that she has to urinate frequently and this is irritating as she has continence issues as well. Timing/Duration: 2-3 Days Associated Systoms: Weakness Allergies and Home Medications Allergies Coded Allergies: Sulfa (Sulfonamide Antibiotics) (Verified Allergy, Mild, 03/28/16) ciprofloxacin (Unverified Allergy, Unknown, NAUSEA, 04/16/17) estradiol (Unverified Allergy, Unknown, 04/16/17) estrogens, conjugated (Unverified Allergy, Unknown, 04/16/17) tramadol (Verified Allergy, Unknown, 10/01/16) nitrofurantoin (Verified Adverse Reaction, Unknown, NAUSEA, 03/28/16) Home Medications Alprazolam 0.25 Mg Tablet, 0.25 MG PO HS, (Reported) Latanoprost 2.5 Ml Drops, 2.5 ML OP DAILY, (Reported) Losartan Potassium 50 Mg Tablet, 50 MG PO DAILY, (Reported) Meloxicam 7.5 Mg Tablet, 7.5 MG PO DAILY, (Reported) Omeprazole 40 Mg Capsule., 40 MG PO DAILY, (Reported) Ondansetron 8 Mg Tab.rapdis, 8 MG PO 4 times a day Prescribed by: ALONZO SON on 06/13/171558 [Antivert] , 25 MG 3 times a day Prescribed by: ALONZO SON on 06/13/171558 Patient Home Medication List Home Medication List Reviewed: Yes Constitutional: see HPI EENTM: blurred vision (2 days ago) Respiratory: no symptoms reported Cardiovascular: no symptoms reported Gastrointestinal: no symptoms reported Genitourinary: frequency, incontinence Musculoskeletal: muscle weakness Skin: no symptoms reported Psychiatric/Neurological: No Symptoms Reported Hematologic/Lymphatic: No Symptoms Reported Immunological/Allergic: no symptoms reported Past Ypjhyne-Rrkieh-Zidtbh Hx Patient Social History Alcohol Use: Denies Use Recreational Drug Use: No Smoking Status: Never a Smoker 2nd Hand Smoke Exposure: No Recent Foreign Travel: No Contact w/Someone Who Travel: No Recent Infectious Disease Expo: No Recent Hopitalizations: No Immunizations Up To Date Tetanus Booster (TDap): Less than 5yrs Date of Pneumonia Vaccine: Jan 03, 2017 Date of Influenza Vaccine: Jan 03, 2017 Seasonal Allergies Seasonal Allergies: Yes Surgeries History of Surgeries: Yes Surgeries: Adenoidectomy, Gallbladder, Tonsillectomy Respiratory History of Respiratory Disorde: No Cardiovascular History of Cardiac Disorders: Yes Cardiac Disorders: Hypertension Neurological History of Neurological Disord: No Reproductive System Hx Reproductive Disorders: No Sexually Transmitted Disease: No HIV/AIDS: No Genitourinary History of Genitourinary Disor: Yes Genitourinary Disorders: Bladder Infection, UTI-Chronic Gastrointestinal History of Gastrointestinal Di: Yes Gastrointestinal Disorders: Gastroesophageal Reflux, Chronic Constipation Musculoskeletal History of Musculoskeletal Dis: Yes (MILD) Musculoskeletal Disorders: Arthritis Endocrine History of Endocrine Disorders: No HEENT History of HEENT Disorders: No 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 Cancer History of Cancer: No Psychosocial History of Psychiatric Problem: Yes Behavioral Health Disorders: Anxiety Integumentary History of Skin or Integumenta: Yes (SKIN TEARS FROM A DOG 06/20) Skin/Integumentary Disorders: Recent Skin Changes, Psoriasis Blood Transfusions History of Blood Disorders: No Adverse Reaction to a Blood Tr: No (N/A) Physical Exam Vital Signs Vital Signs - First Documented 06/13/17 13:26 Temp 98.0 Pulse 74 Resp 18 B/P (MAP) 183/86 (118) Pulse Ox 93 O2 Delivery Room Air Capillary Refill : Less Than 3 Seconds General Appearance: Mild Distress Eyes: Bilateral Eye Normal Inspection Neck: Full Range of Motion, Normal Inspection, Non Tender, Supple, Carotid Bruit Respiratory: Chest Non Tender, Lungs Clear, Normal Breath Sounds, No Accessory Muscle Use, No Respiratory Distress Cardiovascular: Regular Rate, Rhythm, No Edema, No Gallop, No JVD, No Murmur, Normal Peripheral Pulses Gastrointestinal: Normal Bowel Sounds, No Organomegaly, No Pulsatile Mass, Non Tender, Soft Back: Normal Inspection Extremity: Swelling (symmetrical 1+ edema in a crew sock distribution) Neurologic/Psychiatric: Alert, Oriented x3, No Motor/Sensory Deficits, Normal Mood/Affect Skin: Normal Color, Warm/Dry Lymphatic: No Adenopathy Progress/Results/Core Measures Suspected Sepsis Recent Fever Within 48 Hours: No Infection Criteria Present: None New/Unexplained Altered Menta: No Sepsis Screen: No Definite Risk Sepsis Diagnosis: SIRS Temperature:98.0 Pulse: 74 Respiratory Rate: 18 Laboratory Tests 06/13/17 13:40: White Blood Count 8.3 Blood Pressure 183 /86 Mean: 118 Laboratory Tests 06/13/17 13:40: Creatinine 0.84, Platelet Count 282, Total Bilirubin 0.6 Results/Orders Lab Results Laboratory Tests Test 06/13/17 13:30 06/13/17 13:40 Range/Units Urine Color YELLOW Urine Clarity CLEAR Urine pH 8 5-9 Urine Specific Pearl 1.010 L 1.016-1.022 Urine Protein NEGATIVE NEGATIVE Urine Glucose (UA) NEGATIVE NEGATIVE Urine Ketones NEGATIVE NEGATIVE Urine Nitrite NEGATIVE NEGATIVE Urine Bilirubin NEGATIVE NEGATIVE Urine Urobilinogen NORMAL NORMAL MG/DL Urine Leukocyte Esterase NEGATIVE NEGATIVE Urine RBC (Auto) NEGATIVE NEGATIVE Urine RBC RARE /HPF Urine WBC NONE /HPF Urine Squamous Epithelial Cells 2-5 /HPF Urine Crystals NONE /LPF Urine Bacteria NEGATIVE /HPF Urine Casts NONE /LPF Urine Mucus NEGATIVE /LPF Urine Culture Indicated NO White Blood Count 8.3 4.3-11.0 10^3/uL Red Blood Count 4.07 L 4.35-5.85 10^6/uL Hemoglobin 13.6 11.5-16.0 G/DL Hematocrit 39 35-52 % Mean Corpuscular Volume 96 80-99 FL Mean Corpuscular Hemoglobin 33 25-34 PG Mean Corpuscular Hemoglobin Concent 35 32-36 G/DL Red Cell Distribution Width 13.6 10.0-14.5 % Platelet Count 282 130-400 10^3/uL Mean Platelet Volume 9.2 7.4-10.4 FL Neutrophils (%) (Auto) 74 42-75 % Lymphocytes (%) (Auto) 14 12-44 % Monocytes (%) (Auto) 10 0-12 % Eosinophils (%) (Auto) 1 0-10 % Basophils (%) (Auto) 0 0-10 % Neutrophils # (Auto) 6.1 1.8-7.8 X 10^3 Lymphocytes # (Auto) 1.2 1.0-4.0 X 10^3 Monocytes # (Auto) 0.9 0.0-1.0 X 10^3 Eosinophils # (Auto) 0.0 0.0-0.3 10^3/uL Basophils # (Auto) 0.0 0.0-0.1 10^3/uL Sodium Level 127 L 135-145 MMOL/L Potassium Level 4.0 3.6-5.0 MMOL/L Chloride Level 92 L 98-107 MMOL/L Carbon Dioxide Level 27 21-32 MMOL/L Anion Gap 8 5-14 MMOL/L Blood Urea Nitrogen 10 7-18 MG/DL Creatinine 0.84 0.60-1.30 MG/DL Estimat Glomerular Filtration Rate > 60 BUN/Creatinine Ratio 12 Glucose Level 109 H 70-105 MG/DL Calcium Level 9.9 8.5-10.1 MG/DL Total Bilirubin 0.6 0.1-1.0 MG/DL Aspartate Amino Transf (AST/SGOT) 22 5-34 U/L Alanine Aminotransferase (ALT/SGPT) 26 0-55 U/L Alkaline Phosphatase 55 40-136 U/L Total Protein 6.7 6.4-8.2 GM/DL Albumin 4.3 3.2-4.5 GM/DL My Orders Orders - ALONZO SON MD Cbc With Automated Diff (06/13/17 13:28) Comprehensive Metabolic Panel (06/13/17 13:28) Ua Culture If Indicated (06/13/17 13:28) Ondansetron Injection (Zofran Injectio (06/13/17 14:00) Meclizine Tablet (Antivert Tablet) (06/13/17 14:45) Medications Given in ED Current Medications Medications Dose Ordered Sig/Linda Route Start Time Stop Time Status Last Admin Dose Admin Meclizine HCl 25 mg ONCE ONCE PO 06/13/17 14:45 06/13/17 14:46 DC 06/13/17 14:46 25 MG Ondansetron HCl 8 mg ONCE ONCE IVP 06/13/17 14:00 06/13/17 14:02 DC 06/13/17 14:14 8 MG Vital Signs/I&O Vital Sign - Last 12Hours 06/13/17 13:26 Temp 98.0 Pulse 74 Resp 18 B/P (MAP) 183/86 (118) Pulse Ox 93 O2 Delivery Room Air Capillary Refill : Less Than 3 Seconds Blood Pressure Mean: 118 Departure Communication (Admissions) Progress Notes 1555 the patient was walked down the hallway in the company of Douglas Resendiz and ct. She exhibited no demonstrable unsteadiness. There was no problem in pivoting and returning to her room. Impression Impression: Primary Impression: Vertigo Additional Impression: hyponatremia Disposition: HOME, SELF-CARE Condition: Stable/Unchanged Departure-Patient Inst. Decision time for Depature: 16:00 Referrals: SAMUEL AMADOR MD (PCP/Family) Primary Care Physician Patient Instructions: Vertigo (a Type of Dizziness) (DC) Add. Discharge Instructions: All discharge instructions reviewed with patient and/or family. Voiced understanding. Take Antivert 3-4 times daily. Take Zofran up to 4 times daily as needed for nausea and vomiting. Reduce water intake to 1 quart per day. Measure this each morning and put it in a picture in the refrigerator. Drink only from the pitcher. Find her walker and use it. Arrange to see Dr. Amador about Wednesday for a repeat electrolyte test. If symptoms increased greatly return to emergency room Scripts Ondansetron (Zofran Odt) 8 Mg Tab.rapdis 8 MG PO 4 times a day, #14 TAB Prov: ALONZO SON MD 06/13/17 [Antivert] No Conflict Check 25 MG 3 times a day, #20 Prov: ALONZO SON MD 06/13/17 ALONZO SON MD Jun 13, 2017 14:08
[2017-06-13 14:09] LABS: ALANINE AMINOTRANSFERASE 26 U/L (0-55); ALBUMIN 4.3 GM/DL (3.2-4.5); ALKALINE PHOSPHATASE 55 U/L (40-136); BILIRUBIN,TOTAL 0.6 MG/DL (0.1-1.0); BUN/CREATININE RATIO 12; CALCIUM 9.9 MG/DL (8.5-10.1); CARBON DIOXIDE 27 MMOL/L (21-32); CHLORIDE 92 MMOL/L (98-107); CREATININE SERUM 0.84 MG/DL (0.60-1.30); GFR ESTIMATED > 60; GLUCOSE 109 MG/DL (70-105); SODIUM 127 MMOL/L (135-145); TOTAL PROTEIN 6.7 GM/DL (6.4-8.2)
[2017-06-13] MEDS ORDERED: MECLIZINE 25 MG (ANTIVERT) TAB PO ONE (14:45)
[2017-06-13] MEDS ORDERED: Antivert ×2 (15:59→16:41)
[2017-06-13] MEDS ORDERED: ONDA8TAB9 PO (15:59)
[2017-06-13] MEDS ORDERED: LOSARTAN 50 MG (COZAAR) TAB PO ONE (16:30)
[2017-06-13 16:35] VITALS: BP 171/97
== END 2017-06-13 16:35 | disposition home or self-care (01) ==
LOC: EDUNIT# 13:07 → ER 13:09
DX: R42 Dizziness and giddiness (principal); E87.1 Hypo-osmolality and hyponatremia; I10 Essential (primary) hypertension; K21.9 Gastro-esophageal reflux disease without esophagitis; F41.9 Anxiety disorder, unspecified; Z87.440 Personal history of urinary (tract) infections; Z87.19 Personal history of other diseases of the digestive system; Z88.2 Allergy status to sulfonamides; Z88.1 Allergy status to other antibiotic agents; Z88.6 Allergy status to analgesic agent; Z88.8 Allergy status to other drugs, medicaments and biological substances; Z90.89 Acquired absence of other organs
CPT/HCPCS: 36415; 80053; 81000; 85025

== ENCOUNTER 2017-07-03 05:03 | Emergency (ER) | payer MEDICARE ==
[~2017-07-03] VITALS: Ht 160 cm; Wt 72.6 kg
[~2017-07-03 05:03] MED LIST changes: +Antivert; +ONDA8TAB9 PO
[2017-07-03] MEDS ORDERED: PRED5TAB PO (05:27)
[2017-07-03] MEDS ORDERED: MEMA5TAB16 PO (05:27)
[2017-07-03] MEDS ORDERED: CITA10TA7 PO (05:27)
[2017-07-03] MEDS ORDERED: SUCR1TAB PO (05:27)
[2017-07-03 05:28] LABS: BILIRUBIN,URINE NEGATIVE (NEGATIVE); CLARITY,URINE SLIGHTLY CLOUDY; COLOR,URINE YELLOW; GLUCOSE, URINE (UA) NEGATIVE (NEGATIVE); KETONES,URINE NEGATIVE (NEGATIVE); LEUKOCYTE ESTERASE ,URINE 2+ (NEGATIVE); NITRITE,URINE NEGATIVE (NEGATIVE); PH,URINE 8 (5-9); PROTEIN,URINE NEGATIVE (NEGATIVE); UROBILINOGEN,URINE NORMAL (NORMAL)
[2017-07-03 05:33] LABS: BACTERIA,URINE FEW /HPF
--- NOTE | 2017-07-03 05:35 | ED General ---
General Chief Complaint: -Female Stated Complaint: WEAK,NAUSEA,BURNING PAIN IN PELVIS Source of Information: Patient Exam Limitations: No Limitations (ESPERANZA LOVE MD) History of Present Illness Date Seen by Provider: Jul 03, 2017 Time Seen by Provider: 05:20 Initial Comments Here with report of not feeling well, nausea, weakness and burning in the pelvis and with urination. She states that she checked herself yesterday with the Azo test and it was negative. States that she has felt this way for about a year and a half intermittently. Timing/Duration: 24 Hours Severity: Moderate Associated Systoms: No Chest Pain, No Fever/Chills, Malaise, No Nausea/Vomiting , Weakness (ESPREANZA LOVE MD) Allergies and Home Medications Allergies Coded Allergies: Sulfa (Sulfonamide Antibiotics) (Verified Allergy, Mild, 03/28/16) cephalexin (Verified Allergy, Mild, HIVES, 07/03/17) ciprofloxacin (Unverified Allergy, Unknown, NAUSEA, 04/16/17) estradiol (Unverified Allergy, Unknown, 04/16/17) estrogens, conjugated (Unverified Allergy, Unknown, 04/16/17) tramadol (Verified Allergy, Unknown, 10/01/16) nitrofurantoin (Verified Adverse Reaction, Unknown, NAUSEA, 03/28/16) Home Medications Alprazolam 0.25 Mg Tablet, 0.25 MG PO HS, (Reported) Cephalexin 500 Mg Capsule, 500 MG PO QID Prescribed by: PADMAJA HARDY on 07/03/17 0715 Latanoprost 2.5 Ml Drops, 2.5 ML OP DAILY, (Reported) Losartan Potassium 50 Mg Tablet, 50 MG PO DAILY, (Reported) Melatonin 1 Mg Tablet, 1-2 MG PO HS PRN for INSOMNIA Prescribed by: PADMAJA HARDY on 07/03/17 0715 Meloxicam 7.5 Mg Tablet, 7.5 MG PO DAILY, (Reported) Omeprazole 40 Mg Capsule.dr, 40 MG PO DAILY, (Reported) Ondansetron 8 Mg Tab.rapdis, 8 MG PO 4 times a day Prescribed by: ALONZO SON on 06/13/17 1559 Ondansetron 4 Mg Tab.rapdis, 4 MG SL Q4H PRN for NAUSEA/VOMITING-1ST LINE Prescribed by: PADMAJA HARDY on 07/03/17 0715 Polyethylene Glycol 3350 119 Gm Powder, 17 GM PO BID PRN for CONSTIPATION-1ST LINE Prescribed by: PADMAJA HARDY on 07/03/17 0715 [Antivert] , 25 MG 3 times a day 4 times daily when necessary dizziness Prescribed by: ALONZO SON on 06/13/17 1641 Patient Home Medication List Home Medication List Reviewed: Yes (ESPERANZA LOVE MD) Constitutional: see HPI, No chills, No fever, weakness EENTM: double vision, No no symptoms reported Respiratory: no symptoms reported Cardiovascular: no symptoms reported Gastrointestinal: see HPI, constipation, No diarrhea, nausea, No vomiting Genitourinary: no symptoms reported Musculoskeletal: No back pain, muscle weakness Skin: no symptoms reported Psychiatric/Neurological: Depressed, Denies Numbness, Denies Tremors, Weakness (ESPERANZA LOVE MD) All Other Systems Reviewed Negative Unless Noted: Yes (ESPERANZA LOVE MD) Past Stssjmj-Qgyjsw-Rjukgz Hx Patient Social History Alcohol Use: Denies Use Recreational Drug Use: No Smoking Status: Never a Smoker 2nd Hand Smoke Exposure: No Recent Foreign Travel: No Contact w/Someone Who Travel: No Recent Hopitalizations: No (ESPERANZA LOVE MD) Immunizations Up To Date Tetanus Booster (TDap): Less than 5yrs Date of Pneumonia Vaccine: Jan 03, 2017 Date of Influenza Vaccine: Jan 03, 2017 (ESPERANZA LOVE MD) Seasonal Allergies Seasonal Allergies: Yes (ESPERANZA LOVE MD) Surgeries History of Surgeries: Yes Surgeries: Adenoidectomy, Gallbladder, Tonsillectomy (ESPERANZA LVOE MD) Respiratory History of Respiratory Disorde: No (ESPERANZA LOVE MD) Cardiovascular History of Cardiac Disorders: Yes Cardiac Disorders: Hypertension (ESPERANZA LOVE MD) Neurological History of Neurological Disord: No (ESPERANZA LOVE MD) Reproductive System Hx Reproductive Disorders: No Sexually Transmitted Disease: No HIV/AIDS: No (ESPERANZA LOVE MD) Genitourinary History of Genitourinary Disor: Yes Genitourinary Disorders: Bladder Infection, UTI-Chronic (ESPERANZA LOVE MD) Gastrointestinal History of Gastrointestinal Di: Yes Gastrointestinal Disorders: Gastroesophageal Reflux, Chronic Constipation (ESPERANZA LOVE MD) Musculoskeletal History of Musculoskeletal Dis: Yes (MILD) Musculoskeletal Disorders: Arthritis (ESPERANZA LOVE MD) Endocrine History of Endocrine Disorders: No (ESPERANZA LOVE MD) HEENT History of HEENT Disorders: No 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 (ESPERANZA LOVE MD) Cancer History of Cancer: No (ESPERANZA LOVE MD) Psychosocial History of Psychiatric Problem: Yes Behavioral Health Disorders: Anxiety (ESPERANZA LOVE MD) Integumentary History of Skin or Integumenta: Yes (SKIN TEARS FROM A DOG 06/20) Skin/Integumentary Disorders: Recent Skin Changes, Psoriasis (ESPERANZA LOVE MD) Blood Transfusions History of Blood Disorders: No Adverse Reaction to a Blood Tr: No (N/A) (ESPERANZA LOVE MD) Reviewed Nursing Assessment Reviewed/Agree w Nursing PMH: Yes (ESPERANZA LOVE MD) Physical Exam Vital Signs Vital Signs - First Documented 07/03/17 05:12 Temp 97.5 Pulse 83 Resp 20 B/P (MAP) 165/89 (114) Pulse Ox 94 O2 Delivery Room Air (PADMAJA LUNDBERG MD) Vital Signs Capillary Refill : (ESPERANZA LOVE MD) General Appearance: No Apparent Distress, WD/WN HEENT: PERRL/EOMI, Pharynx Normal Neck: Non Tender, Supple Respiratory: Lungs Clear, Normal Breath Sounds Cardiovascular: Regular Rate, Rhythm, No Murmur Gastrointestinal: Normal Bowel Sounds, No Organomegaly, Non Tender, Soft Back: Normal Inspection, No CVA Tenderness, No Vertebral Tenderness Extremity: Normal Range of Motion, Non Tender Neurologic/Psychiatric: Alert, Oriented x3 Skin: Normal Color, Warm/Dry (ESPERANZA LOVE MD) Progress/Results/Core Measures Suspected Sepsis SIRS Temperature: Pulse: Respiratory Rate: Blood Pressure / Mean: (ESPERANZA LOVE MD) Results/Orders Lab Results Laboratory Tests Test 07/03/17 05:20 07/03/17 05:30 Range/Units Urine Color YELLOW Urine Clarity SLIGHTLY CLOUDY Urine pH 8 5-9 Urine Specific Louise 1.010 L 1.016-1.022 Urine Protein NEGATIVE NEGATIVE Urine Glucose (UA) NEGATIVE NEGATIVE Urine Ketones NEGATIVE NEGATIVE Urine Nitrite NEGATIVE NEGATIVE Urine Bilirubin NEGATIVE NEGATIVE Urine Urobilinogen NORMAL NORMAL MG/DL Urine Leukocyte Esterase 2+ H NEGATIVE Urine RBC (Auto) NEGATIVE NEGATIVE Urine RBC NONE /HPF Urine WBC 2-5 /HPF Urine Squamous Epithelial Cells 10-25 H /HPF Urine Crystals NONE /LPF Urine Bacteria FEW H /HPF Urine Casts NONE /LPF Urine Mucus NEGATIVE /LPF Urine Culture Indicated YES White Blood Count 8.0 4.3-11.0 10^3/uL Red Blood Count 3.85 L 4.35-5.85 10^6/uL Hemoglobin 12.9 11.5-16.0 G/DL Hematocrit 36 35-52 % Mean Corpuscular Volume 95 80-99 FL Mean Corpuscular Hemoglobin 34 25-34 PG Mean Corpuscular Hemoglobin Concent 35 32-36 G/DL Red Cell Distribution Width 13.2 10.0-14.5 % Platelet Count 262 130-400 10^3/uL Mean Platelet Volume 9.2 7.4-10.4 FL Neutrophils (%) (Auto) 58 42-75 % Lymphocytes (%) (Auto) 24 12-44 % Monocytes (%) (Auto) 14 H 0-12 % Eosinophils (%) (Auto) 4 0-10 % Basophils (%) (Auto) 1 0-10 % Neutrophils # (Auto) 4.6 1.8-7.8 X 10^3 Lymphocytes # (Auto) 1.9 1.0-4.0 X 10^3 Monocytes # (Auto) 1.1 H 0.0-1.0 X 10^3 Eosinophils # (Auto) 0.3 0.0-0.3 10^3/uL Basophils # (Auto) 0.1 0.0-0.1 10^3/uL Erythrocyte Sedimentation Rate 11 0-30 MM/HR Sodium Level 131 L 135-145 MMOL/L Potassium Level 3.6 3.6-5.0 MMOL/L Chloride Level 97 L 98-107 MMOL/L Carbon Dioxide Level 26 21-32 MMOL/L Anion Gap 8 5-14 MMOL/L Blood Urea Nitrogen 11 7-18 MG/DL Creatinine 0.73 0.60-1.30 MG/DL Estimat Glomerular Filtration Rate > 60 BUN/Creatinine Ratio 15 Glucose Level 94 70-105 MG/DL Calcium Level 9.2 8.5-10.1 MG/DL Magnesium Level 2.1 1.8-2.4 MG/DL Total Bilirubin 0.6 0.1-1.0 MG/DL Aspartate Amino Transf (AST/SGOT) 20 5-34 U/L Alanine Aminotransferase (ALT/SGPT) 19 0-55 U/L Alkaline Phosphatase 45 40-136 U/L Total Creatine Kinase 59 29-168 U/L C-Reactive Protein High Sensitivity 0.09 0.00-0.50 MG/DL Total Protein 5.6 L 6.4-8.2 GM/DL Albumin 3.8 3.2-4.5 GM/DL TSH [place] Testing 1.18 0.35-4.94 UIU/ML (PADMAJA LUNDBERG MD) My Orders Orders - PADMAJA LUNDBERG MD Thyroid Analyzer (07/03/17 06:20) Erythrocyte Sedimentation Rate (07/03/17 06:20) Creatine Kinase (07/03/17 06:20) Ondansetron Injection (Zofran Injectio (07/03/17 06:30) (PADMAJA LUNDBERG MD) Medications Given in ED Current Medications Medications Dose Ordered Sig/Linda Route Start Time Stop Time Status Last Admin Dose Admin Ondansetron HCl 4 mg ONCE ONCE IVP 07/03/17 06:30 07/03/17 06:31 DC 07/03/17 06:28 4 MG Sodium Chloride 500 ml @ 0 mls/hr Q0M ONCE IV 07/03/17 05:40 07/03/17 05:42 DC 07/03/17 05:49 500 MLS/HR (PADMAJA LUNDBERG MD) Vital Signs/I&O Vital Sign - Last 12Hours 07/03/17 07/03/17 05:12 07:33 Temp 97.5 Pulse 83 75 Resp 20 16 B/P (MAP) 165/89 (114) 150/80 Pulse Ox 94 98 O2 Delivery Room Air (PADMAJA LUNDBERG MD) Vital Signs/I&O Capillary Refill : (ESPERANZA LOVE MD) Progress Note : Progress Note Seen and evaluated. IV, labs, UA and normal saline 500 mL bolus ordered. Monitor patient. (ESPERANZA LOVE MD) Progress Note #1: Time: 06:21 Progress Note Care of this patient was assumed from Dr. Love at 06:00. Patient was interviewed and examined. Patient complains of generalized aching, pelvic burning with urination, slight nausea, frequent constipation, and subtle disequilibrium since having a syncopal episode June 13. She was reexamined and found to be alert and oriented. Lungs were clear to auscultation bilaterally. Heart was regular rate and rhythm with PVCs. Abdomen was soft and nontender with normal bowel sounds. IV fluids are infusing. I have added screening labs including ESR, thyroid analyzer, and CRP. Patient has been to multiple specialists in the recent past to help evaluate her constellation of symptoms. She had a colonoscopy in April which revealed diverticulosis and polyps. She went to a specialist in [place] who did testing and found no pathology according to her report. Labs have been reviewed and are relatively unremarkable. She is requesting something to treat nausea. Zofran has been ordered. Her program support assistant states she does not sleep well at night despite taking Xanax at bedtime. Progress Note #2: Time: 12:01 Progress Note Pharmacy called stating patient has allergy to cephalosporins. Specifically, patient stated she had hives the last time she took Keflex. Prescription was canceled and patient was advised to wait for culture results and discussed with Dr. Amador on Wednesday. Patient has numerous antibiotic allergies which makes treatment difficult. (PADMAJA LUNDBERG MD) Departure Impression Impression: Primary Impression: Dysuria Additional Impressions: Nausea Myalgia Disposition: HOME, SELF-CARE Condition: Improved Departure-Patient Inst. Decision time for Depature: 07:11 (PADMAJA LUNDBERG MD) Referrals: SAMUEL AMADOR MD (PCP) Primary Care Physician LEIGH ANN BA APRN (Family) Primary Care Physician Patient Instructions: Urinary Tract Infection, Adult (DC) Add. Discharge Instructions: It's possible that you have a urinary tract infection. Complete the antibiotics as prescribed and follow-up on your urine culture results with Dr. Amador on Wednesday. Use Zofran (ondansetron) dissolved under the tongue every 4 hours as needed for nausea and vomiting. Drink plenty of clear liquids. For pain take Tylenol (acetaminophen) up to 1000 mg every 6 hours as needed. Return to the emergency room if symptoms worsen. For insomnia you may try melatonin as prescribed. For constipation, you may try increasing fiber, increasing clear liquid consumption, increasing fruits and vegetables in your diet, increasing whole grains, and prune juice. If these changes are not helpful, you may use MiraLAX indices polyethylene glycol) as prescribed. Fill the measuring cup to the line and dissolve in 8-12 ounces of clear liquid. Follow-up with Dr. Amador in the office next week for a repeat examination. All discharge instructions reviewed with patient and/or family. Voiced understanding. Scripts Polyethylene Glycol 3350 (Miralax) 119 Gm Powder 17 GM PO BID Y for CONSTIPATION-1ST LINE, #1 EA Prov: PADMAJA LUNDBERG MD 07/03/17 Melatonin (Melatonin) 1 Mg Tablet 1-2 MG PO HS Y for INSOMNIA, #30 TAB Prov: PADMAJA LUNDBERG MD 07/03/17 Ondansetron (Zofran Odt) 4 Mg Tab.rapdis 4 MG SL Q4H Y for NAUSEA/VOMITING-1ST LINE, #10 TAB Prov: PADMAJA LUNDBERG MD 07/03/17 Cephalexin (Keflex) 500 Mg Capsule 500 MG PO QID, #20 CAP Prov: PADMAJA LUNDBERG MD 07/03/17 Copy Copies To 1: SAMUEL AMADOR MD, TIMOTHY D MD Jul 03, 2017 05:35 PADMAJA LUNDBERG MD Jul 03, 2017 06:24
[2017-07-03 05:38] LABS: BASOPHILS # (AUTO) 0.1 10^3/uL (0.0-0.1); BASOPHILS % (AUTO) 1 % (0-10); EOSINOPHILS # (AUTO) 0.3 10^3/uL (0.0-0.3); EOSINOPHILS % (AUTO) 4 % (0-10); HEMATOCRIT 36 % (35-52); HEMOGLOBIN 12.9 G/DL (11.5-16.0); LYMPHOCYTES # (AUTO) 1.9 X 10^3 (1.0-4.0); LYMPHOCYTES % (AUTO) 24 % (12-44); MEAN CORPUSCULAR HEMOGLOBIN 34 PG (25-34); MEAN CORPUSCULAR HGB CONC 35 G/DL (32-36); MEAN CORPUSCULAR VOLUME 95 FL (80-99); MEAN PLATELET VOLUME 9.2 FL (7.4-10.4); MONOCYTES # (AUTO) 1.1 X 10^3 (0.0-1.0); MONOCYTES % (AUTO) 14 % (0-12); NEUTROPHILS # (AUTO) 4.6 X 10^3 (1.8-7.8); NEUTROPHILS % (AUTO) 58 % (42-75); PLATELET COUNT 262 10^3/uL (130-400); RED BLOOD COUNT 3.85 10^6/uL (4.35-5.85); RED CELL DISTRIBUTION WIDTH 13.2 % (10.0-14.5)
[2017-07-03] MEDS ORDERED: NS IV 500 ML 500 ML IV ONE (05:40)
[2017-07-03 05:57] LABS: ALANINE AMINOTRANSFERASE 19 U/L (0-55); ALBUMIN 3.8 GM/DL (3.2-4.5); ALKALINE PHOSPHATASE 45 U/L (40-136); BILIRUBIN,TOTAL 0.6 MG/DL (0.1-1.0); BUN/CREATININE RATIO 15; CALCIUM 9.2 MG/DL (8.5-10.1); CARBON DIOXIDE 26 MMOL/L (21-32); CHLORIDE 97 MMOL/L (98-107); CREATININE SERUM 0.73 MG/DL (0.60-1.30); GFR ESTIMATED > 60; GLUCOSE 94 MG/DL (70-105); MAGNESIUM 2.1 MG/DL (1.8-2.4); POTASSIUM 3.6 MMOL/L (3.6-5.0); SODIUM 131 MMOL/L (135-145); TOTAL PROTEIN 5.6 GM/DL (6.4-8.2)
[2017-07-03] MEDS ORDERED: ONDANSETRON 4 MG/2 ML (SDV) Z0FRAN IVP ONE (06:30)
[2017-07-03 07:02] LABS: TSH (THYROID ANALYZER) 1.18 UIU/ML (0.35-4.94)
[2017-07-03] MEDS ORDERED: ONDA4TAB8 SL (07:15)
[2017-07-03] MEDS ORDERED: CEPH-507 PO (07:15)
[2017-07-03] MEDS ORDERED: POLY119P5 PO (07:15)
[2017-07-03] MEDS ORDERED: MELA1TAB8 PO (07:15)
[2017-07-03 07:33] VITALS: BP 150/80
--- OUTSIDE RECORDS SUMMARY | 2017-07-04 04:01 | XMS REPORT | Continuity of Care Document ---
Author Author [employer] Organization [employer] Address Unknown Phone Unavailable Care Team Providers Care Operations Support Representative Name Role Phone [employer] Unavailable Unavailable Problems Medications Allergies, Adverse Reactions, Alerts Immunizations Results Vital Signs Encounters Location Location Details Encounter Type Encounter Number Reason For Visit Attending Provider ADM Date DC Date Status Source O DONOVAN LEÓN 12/16/2016 Active [facility] SPECIMEN [id number] DONOVAN LEÓN 12/16/2016 12/16/2016 Active [facility] Procedures Plan of Care Social History Assessment and Plan Family History Advance Directives Functional Status
--- OUTSIDE RECORDS SUMMARY | 2017-07-04 04:04 | XMS REPORT | CCD ---
Author Author [facility] Organization [facility] Address [address] [place] [address] Phone Care Team Providers Care Head Miller Name Role Phone PP Unavailable CCM Unavailable Summary Purpose Interface Exchange Insurance Providers Payer name Policy type / Coverage type Covered green party ID Effective Begin Date Effective End Date WPS Medicare Part B Medicare Part B [id number] Unknown Unknown AARP Medicare Part B [id number] Unknown Unknown Family History Family History data not found Social History Social History Element Codes Description Effective Dates Marital status Unknown 04/30/[address]: 769465349 Never smoker 04/30/[address]: 347726874 Never drinks alcohol 04/30/2016 Allergies, Adverse Reactions, Alerts Substance Reaction Codes Entered Date Inactivated Date Status cephalexin rash RxNorm: 2231 10/28/2016 No Inactive Date Active ultram pruritis RxNorm: 47179 08/24/2016 No Inactive Date Active Past Medical [...] 06/15/2016 Unknown Pelvic and perineal pain ICD-9: [id number] ICD-10: R10.2 Active 08/03/2016 Unknown Vitamin B12 [...] 06/15/2016 Active Pelvic and perineal pain ICD-9: [id number] ICD-10: R10.2 08/03/2016 Active Vitamin B12 deficiency [...] Start Date Stop Date Status Fill Instructions Augmentin 500 mg-125 mg tablet RxNorm: 535125 1 Tablet(s) PO TID 05/11/2017 05/17/2017 Active Xanax 0.25 mg tablet RxNorm: 188942 1/2-1 Tablet(s) PO TID as needed 05/07/2017 07/05/2017 Active omeprazole 40 mg capsule,delayed release RxNorm: 852537 TAKE ONE CAPSULE BY MOUTH ONCE DAILY 05/06/2017 No Stop Date Active prednisone 10 mg tablet RxNorm: 025466 Tablet(s) PO UD 2017 No Stop Date Active 20,20,10,10 Tessalon Perles 100 mg capsule RxNorm: 790302 1-2 Capsule(s) PO TID as needed cough 04/23/2017 No Stop Date Active prednisone 10 mg tablet RxNorm: 221078 Tablet(s) PO 04/23/2017 No Stop Date Active 6, 5,4,3,2,1 doxycycline hyclate 100 mg capsule RxNorm: 7187214 1 Capsule(s) PO BID 04/23/2017 05/02/2017 Inactive Kenalog 40 mg/mL suspension for injection RxNorm: 9865936 1 Milliliter(s) Inj 04/23/2017 04/23/2017 Inactive Cipro 500 mg tablet RxNorm: 134822 1 Tablet(s) PO BID 201704/16/2017 Inactive Cipro 500 mg tablet RxNorm: 945324 1 Tablet(s) PO BID 201603/25/2017 Inactive hydrocodone 5 mg-acetaminophen 325 mg tablet RxNorm: 750894 1 Tablet(s) PO Q6 as needed 03/05/2017 03/19/2017 Inactive Diflucan 150 mg tablet RxNorm: 265706 1 Tablet(s) PO daily 03/05/2017 Inactive Diflucan 150 mg tablet RxNorm: 820301 1 Tablet(s) PO daily 02/28/2017 Inactive Seasonique 0.15 mg-30 mcg (84)/10 mcg(7) tablets,3 month dose pack RxNorm: 371803 1 Tablet(s) PO UD 02/24/2017 02/24/2017 Inactive losartan 50 mg tablet RxNorm: 216344 TAKE ONE TABLET BY MOUTH ONCE DAILY IN THE MORNING 02/23/2017 No Stop Date Active Diflucan 150 mg tablet RxNorm: 801327 1 Tablet(s) PO daily 09/201602/14/2017 Inactive Cipro 500 mg tablet RxNorm: 485608 1 Tablet(s) PO BID 201601/21/2017 Inactive Augmentin 500 mg-125 mg tablet RxNorm: 637780 1 Tablet(s) PO TID 12/30/2016 12/29/2016 Inactive Augmentin 500 mg-125 mg tablet RxNorm: 517737 1 Tablet(s) PO TID 12/30/2016 01/05/2017 Inactive hydrocodone 5 mg-acetaminophen 325 mg tablet RxNorm: 184282 1 Tablet(s) PO Q6 as needed 12/24/2016 01/07/2017 Inactive omeprazole 40 mg capsule,delayed release RxNorm: 702201 TAKE ONE CAPSULE BY MOUTH ONCE DAILY 12/08/2016 04/06/2017 Inactive Diflucan 150 mg tablet RxNorm: 362610 1 Tablet(s) PO daily 12/02/2016 Inactive Xanax 0.25 mg tablet RxNorm: 729714 1/2-1 Tablet(s) PO TID as needed 11/24/2016 01/20/2017 Inactive Xanax 0.25 mg tablet RxNorm: 705392 1/2-1 Tablet(s) PO TID as needed 11/24/2016 01/22/2017 Inactive sucralfate 1 gram tablet RxNorm: 506181 TAKE ONE TABLET BY MOUTH BEFORE MEALS AND AT BEDTIME 11/20/2016 12/19/2016 Inactive Diflucan 150 mg tablet RxNorm: 468018 1 Tablet(s) PO daily 11/22/2016 Inactive Levaquin 500 mg tablet RxNorm: 127829 1 Tablet(s) PO daily 10/201611/08/2016 Inactive Levaquin 500 mg tablet RxNorm: 909782 1 Tablet(s) PO daily 10/201611/15/2016 Inactive losartan 50 mg tablet RxNorm: 367204 1 Tablet(s) PO QAM 201602/22/2017 Inactive hydrocodone 5 mg-acetaminophen 325 mg tablet RxNorm: 568715 1 Tablet(s) PO Q6 as needed 10/26/2016 11/09/2016 Inactive Kenalog 40 mg/mL suspension for injection RxNorm: 7589991 1 Milliliter(s) Inj 10/08/2016 10/08/2016 Inactive prednisone 5 mg tablets in a dose pack RxNorm: 203017 1 Tablet(s) PO UD 10/08/2016 10/12/2016 Inactive 6-5-4-3-2-1 Diflucan 150 mg tablet RxNorm: 564460 1 Tablet(s) PO daily 06/201610/04/2016 Inactive Diflucan 150 mg tablet RxNorm: 045027 1 Tablet(s) PO daily 06/201610/09/2016 Inactive Lexapro 10 mg tablet RxNorm: 209536 1 Tablet(s) PO QHS 201601/26/2017 Inactive cefdinir 300 mg capsule RxNorm: 135396 1 Capsule(s) PO BID 10/07/2016 Inactive Lexapro 5 mg tablet RxNorm: 225223 1 Tablet(s) PO QHS 201609/28/2016 Inactive trimethoprim 100 mg tablet RxNorm: 838623 1 Tablet(s) PO daily 09/03/2016 03/01/2017 Inactive hydrocodone 5 mg-acetaminophen 325 mg tablet RxNorm: 500632 1 Tablet(s) PO Q6 as needed 08/28/2016 09/11/2016 Inactive Diflucan 150 mg tablet RxNorm: 643458 1 Tablet(s) PO QW as needed symptoms of thrush 08/26/2016 09/28/2016 Inactive Xanax 0.25 mg tablet RxNorm: 865789 1/2-1 Tablet(s) PO TID as needed 08/24/2016 10/20/2016 Inactive tramadol 50 mg tablet RxNorm: 680025 1-2 Tablet(s) PO Q6 as needed for pain 08/14/2016 09/28/2016 Inactive amoxicillin 500 mg capsule RxNorm: 370771 1 Capsule(s) PO TID 08/11/2016 08/20/2016 Inactive nystatin 100,000 unit/mL oral suspension RxNorm: 493731 5 Milliliter(s) PO QID 08/11/2016 08/17/2016 Inactive cefdinir 300 mg capsule RxNorm: 073600 1 Capsule(s) PO BID 12/201608/20/2016 Inactive losartan 50 mg tablet RxNorm: 393959 1 Tablet(s) PO QAM 201610/24/2016 Inactive fluconazole 200 mg tablet RxNorm: 190153 1 Tablet(s) PO daily 07/19/2016 07/28/2016 Inactive cefuroxime axetil 500 mg tablet RxNorm: 863677 1 Tablet(s) PO BID 07/19/2016 08/02/2016 Inactive Xanax 0.25 mg tablet RxNorm: 741281 1/2-1 Tablet(s) PO QDAY PRN 07/14/2016 08/23/2016 Inactive cyanocobalamin (vit B-12) 1,000 mcg/mL injection solution RxNorm: 641590 1 Milliliter(s) Inj 07/14/2016 07/14/2016 Inactive Diflucan 150 mg tablet RxNorm: 443800 1 Tablet(s) PO daily 10/201607/17/2016 Inactive Keflex 250 mg capsule RxNorm: 329629 1 Capsule(s) PO QHS 201607/13/2016 Inactive Lexapro 5 mg tablet RxNorm: 997745 1 Tablet(s) PO QHS TO START AFTER YOU ARE FINISHED WITH THE DIFLUCAN!! 06/30/2016 Inactive cefuroxime axetil 250 mg tablet RxNorm: 472592 1 Tablet(s) PO BID 06/26/2016 06/25/2016 Inactive ceftriaxone 500 mg solution for injection RxNorm: 7498037 1 Milliliter(s) Inj 06/26/2016 06/26/2016 Inactive cefuroxime axetil 250 mg tablet RxNorm: 156585 1 Tablet(s) PO BID 06/26/2016 07/05/2016 Inactive Diflucan 150 mg tablet RxNorm: 728278 1 Tablet(s) PO QW as needed symptoms of thrush 06/23/2016 08/02/2016 Inactive Zantac 150 mg tablet RxNorm: 259251 1 Tablet(s) PO daily 201607/14/2016 Inactive Xanax 0.25 mg tablet RxNorm: 684890 1/2-1 Tablet(s) PO HS PRN 06/05/2016 07/13/2016 Inactive Keflex 250 mg capsule RxNorm: 990200 1 Capsule(s) PO QHS as needed 06/05/2016 07/04/2016 Inactive Cipro 500 mg tablet RxNorm: 329631 1 Tablet(s) PO BID 201606/07/2016 Inactive ceftriaxone 500 mg solution for injection RxNorm: 6916320 1 Milliliter(s) Inj 05/28/2016 05/28/2016 Inactive cefdinir 300 mg capsule RxNorm: 113362 1 Capsule(s) PO BID 05/31/2016 Inactive metronidazole 500 mg tablet RxNorm: 186410 1 Tablet(s) PO BID 05/28/2016 06/03/2016 Inactive sucralfate 1 gram tablet RxNorm: 799407 1 Tablet(s) PO AC & HS 05/21/2016 07/20/2016 Inactive sucralfate 1 gram tablet RxNorm: 488330 1 Tablet(s) PO AC & HS 05/21/2016 05/20/2016 Inactive omeprazole 40 mg capsule,delayed release RxNorm: 273436 1 Capsule(s) PO daily 05/21/2016 08/18/2016 Inactive omeprazole 40 mg capsule,delayed release RxNorm: 979772 1 Capsule(s) PO daily 05/21/2016 05/20/2016 Inactive losartan 50 mg tablet RxNorm: 760915 1 Tablet(s) PO QAM 201607/26/2016 Inactive latanoprost 0.005 % eye drops RxNorm: 962624 1 Drop(s) OPH daily No Start Date Active Culturelle 15 billion cell sprinkle capsule RxNorm: 7653189 1 Capsule(s) PO TID No Start Date Active Calcium 500 + D (D3) oral RxNorm: 213374 oral No Start Date Active cranberry 500 mg capsule RxNorm: 771034 1 Capsule(s) PO daily No Start Date Active Ocuvite Lutein and Zeaxanthin 60 mg-30 unit-15 mg-2 mg-6 mg capsule RxNorm: 766282 1 Capsule(s) PO daily No Start Date Active Pyridium 200 mg tablet RxNorm: 8381894 1 Tablet(s) PO TID as needed No Start Date Active Toviaz 4 mg tablet,extended release RxNorm: 592440 1 Tablet(s) PO daily No Start Date Active Klor-Con 10 mEq tablet,extended release RxNorm: 391906 1 Tablet(s) PO BID No Start Date Active Estrace 0.01% (0.1 mg/gram) vaginal cream RxNorm: 186345 1 Application VAG TIW No Start Date 07/13/2016 Inactive allopurinol 300 mg tablet RxNorm: 165375 1 Tablet(s) PO daily No Start Date 06/22/2016 Inactive triamterene 37.5 mg-hydrochlorothiazide 25 mg tablet RxNorm: 091911 1 Tablet(s) PO daily No Start Date 10/07/2016 Inactive Seasonique 0.15 mg-30 mcg (84)/10 mcg(7) tablets,3 month dose pack RxNorm: 810553 1 Tablet(s) PO UD No Start Date 2016 Inactive hydrocodone 5 mg-acetaminophen 325 mg tablet RxNorm: 415091 1 Tablet(s) PO as needed No Start Date 08/27/2016 Inactive meloxicam 7.5 mg tablet RxNorm: 759573 1 Tablet(s) PO daily as needed No Start Date 10/07/2016 Inactive Multivitamins FC tablet RxNorm: 1 Tablet(s) PO daily No Start Date 10/07/2016 Inactive Fish Oil 1,000 mg capsule RxNorm: 1 Capsule(s) PO BID No Start Date 05/27/2016 Inactive tramadol 50 mg tablet RxNorm: 512311 1-2 Tablet(s) PO Q6 as needed for pain No Start Date 08/13/2016 Inactive Medication Administered Medication Codes Instructions Start Date Status Kenalog 40 mg/mL suspension for injection RxNorm: 2444441 1Milliliter 10/08/2016 No longer Active cyanocobalamin (vit B-12) 1,000 mcg/mL injection solution RxNorm: 899901 1Milliliter 07/14/2016 No longer Active ceftriaxone 500 mg solution for injection RxNorm: 3259665 1Milliliter 06/26/2016 No longer Active ceftriaxone 500 mg solution for injection RxNorm: 8809850 1Milliliter 05/28/2016 No longer Active Immunizations Vaccine Codes Date Status Pneumococcal CVX: 133 04/01/2017 completed Influenza CVX: 141 12/18/2016 completed Assessments Condition Codes Effective Dates Dysuria ICD-10: R30.0 ICD-9: 788.1 05/11/2017 Generalized anxiety disorder ICD-10: F41.1 ICD-9: 300.02 [...] Pelvic and perineal pain ICD-10: R10.2 ICD-9: FTB7779 08/11/2016 Hypo-osmolality and hyponatremia ICD-10: E87.1 ICD-9: [...] Item Item Code Result Date Culture Urine [id number] URINE CULTURE SEE NOTES 04/06/2017 Culture Urine [id number] Continued Results 04/06/2017 Urine Culture Ucult Complete >100,000 col/ml aerobic growth sent to ref lab 04/02/2017 Culture Urine [id number] URINE CULTURE SEE NOTES 03/22/2017 Culture Urine [id number] Continued Results 03/22/2017 Urine Culture Ucult Complete >100,000 col/ml aerobic growth sent to ref lab 03/20/2017 Comp Metabolic Ksm615 NA 131 mEq/L 03/19/2017 Comp Metabolic Qbc184 K 4.0 mEq/L 03/19/2017 Comp Metabolic Ypt393 CL 93 mEq/L 03/19/2017 Comp Metabolic Tfh400 CO2 28.0 mEq/L 03/19/2017 Comp Metabolic Stz774 ANION GAP 14 03/19/2017 Comp Metabolic Edw509 GLUCOSE 94 mg/dL 03/19/2017 Comp Metabolic Cag035 Creat 0.8 mg/dL 03/19/2017 Comp Metabolic Vbn561 eGFR 69 ml/min/1.73m2 03/19/2017 Comp Metabolic Mxr485 BUN 16 mg/dL 03/19/2017 Comp Metabolic Kjx119 B/C Ratio 19.3 Ratio 03/19/2017 Comp Metabolic Msv157 CALCIUM 9.5 mg/dL 03/19/2017 Comp Metabolic Jap443 ALK PHOS 54 U/L 03/19/2017 Comp Metabolic Ers152 AST(SGOT) 22 U/L 03/19/2017 Comp Metabolic Ciy837 ALT(SGPT) 18 U/L 03/19/2017 Comp Metabolic Mjf983 BILI T 0.4 mg/dL 03/19/2017 Comp Metabolic Dvq043 ALBUMIN 4.2 g/dL 03/19/2017 Comp Metabolic Zcz999 TPRO 6.2 g/dL 03/19/2017 Comp Metabolic Bhr986 GLOB 2.0 g/dL 03/19/2017 Comp Metabolic Was062 A/G Ratio 2.2 Ratio 03/19/2017 Comp Metabolic Srp453 Osmo 264 mOsmo 03/19/2017 Cbc With Differential [...] 34.3 pg 03/19/2017 Cbc With Differential Ord2 [place]% 10.3 % 03/19/2017 Cbc With Differential Ord2 [...] 1.49 K/ul 03/19/2017 Cbc With Differential Ord2 [place] ABS# 1.2 K/ul 03/19/2017 Cbc With Differential [...] Ord15 CALCIUM 9.3 mg/dL 08/11/2016 Culture Urine [id number] URINE CULTURE SEE NOTES 08/10/2016 Culture Urine [id number] Continued Results 08/10/2016 Urine Culture Ucult Complete >100,000 col/ml aerobic growth sent to ref lab 08/07/2016 Comp Metabolic Uti672 NA 132 mEq/L 07/10/2016 Comp Metabolic Fco203 K 3.9 mEq/L 07/10/2016 Comp Metabolic Vhu333 CL 94 mEq/L 07/10/2016 Comp Metabolic Nha530 CO2 28.0 mEq/L 07/10/2016 Comp Metabolic Dep695 ANION GAP 14 07/10/2016 Comp Metabolic Msl244 GLUCOSE 96 mg/dL 07/10/2016 Comp Metabolic Jnd635 Creat 0.8 mg/dL 07/10/2016 Comp Metabolic Ufb076 eGFR 70 ml/min/1.73m2 07/10/2016 Comp Metabolic Jgo980 BUN 22 mg/dL 07/10/2016 Comp Metabolic Vjk373 B/C Ratio 26.8 Ratio 07/10/2016 Comp Metabolic Ozy539 CALCIUM 10.2 mg/dL 07/10/2016 Comp Metabolic Fby345 ALK PHOS 50 U/L 07/10/2016 Comp Metabolic Ryj362 AST(SGOT) 21 U/L 07/10/2016 Comp Metabolic Zpz149 ALT(SGPT) 19 U/L 07/10/2016 Comp Metabolic Uzw428 BILI T 0.5 mg/dL 07/10/2016 Comp Metabolic Ebj447 ALBUMIN 4.2 g/dL 07/10/2016 Comp Metabolic Jvh391 TPRO 6.6 g/dL 07/10/2016 Comp Metabolic Bdu082 GLOB 2.4 g/dL 07/10/2016 Comp Metabolic Afc775 A/G Ratio 1.8 Ratio 07/10/2016 Comp Metabolic Cpk249 Osmo 268 mOsmo 07/10/2016 Wet Prep [id number] Yeast Vaginal TNP:Duplicate Order 2016 Wet Prep [id number] Trichomonas TNP:Duplicate Order 07/10/2016 Cbc With Differential [...] 34.6 pg 07/10/2016 Cbc With Differential Ord2 [place]% 10.7 % 07/10/2016 Cbc With Differential Ord2 [...] 1.35 K/ul 07/10/2016 Cbc With Differential Ord2 [place] ABS# 0.9 K/ul 07/10/2016 Cbc With Differential Ord2 Eos ABS# 0.1 K/ul 07/10/2016 Cbc With Differential Ord2 Baso ABS# 0.0 K/ul 07/10/2016 Wet Prep [id number] Yeast Vaginal None 07/10/2016 Wet Prep [id number] Trichomonas None 07/10/2016 Comp Metabolic Egb096 NA 131 mEq/L 07/03/2016 Comp Metabolic Dew995 K 4.4 mEq/L 07/03/2016 Comp Metabolic Yhe229 CL 92 mEq/L 07/03/2016 Comp Metabolic Kkp094 CO2 28.0 mEq/L 07/03/2016 Comp Metabolic Zqw635 ANION GAP 15 07/03/2016 Comp Metabolic Mdc472 GLUCOSE 96 mg/dL 07/03/2016 Comp Metabolic Mop433 Creat 0.8 mg/dL 07/03/2016 Comp Metabolic Cvw154 eGFR 76 ml/min/1.73m2 07/03/2016 Comp Metabolic Txy277 BUN 22 mg/dL 07/03/2016 Comp Metabolic Dta912 B/C Ratio 28.9 Ratio 07/03/2016 Comp Metabolic Rrv217 CALCIUM 10.3 mg/dL 07/03/2016 Comp Metabolic Ohw021 ALK PHOS 49 U/L 07/03/2016 Comp Metabolic Wmr631 AST(SGOT) 21 U/L 07/03/2016 Comp Metabolic Yfz163 ALT(SGPT) 19 U/L 07/03/2016 Comp Metabolic Uas695 BILI T 0.5 mg/dL 07/03/2016 Comp Metabolic Gxh087 ALBUMIN 4.3 g/dL 07/03/2016 Comp Metabolic Jyb310 TPRO 6.7 g/dL 07/03/2016 Comp Metabolic Akz916 GLOB 2.4 g/dL 07/03/2016 Comp Metabolic Ayh956 A/G Ratio 1.8 Ratio 07/03/2016 Comp Metabolic Bhj567 Osmo 266 mOsmo 07/03/2016 Cbc With Differential [...] 33.9 pg 07/03/2016 Cbc With Differential Ord2 [place]% 10.3 % 07/03/2016 Cbc With Differential Ord2 [...] 1.40 K/ul 07/03/2016 Cbc With Differential Ord2 [place] ABS# 0.9 K/ul 07/03/2016 Cbc With Differential [...] Ord62 ANION GAP 12 06/11/2016 Comp Metabolic Cag031 NA 127 mEq/L 06/05/2016 Comp Metabolic Hiy094 K 4.0 mEq/L 06/05/2016 Comp Metabolic Kkn330 CL 94 mEq/L 06/05/2016 Comp Metabolic Bgk384 CO2 26.0 mEq/L 06/05/2016 Comp Metabolic Xpu542 ANION GAP 11 06/05/2016 Comp Metabolic Rnf963 GLUCOSE 101 mg/dL 06/05/2016 Comp Metabolic Hhg730 Creat 0.7 mg/dL 06/05/2016 Comp Metabolic Tit542 eGFR 80 ml/min/1.73m2 06/05/2016 Comp Metabolic Lhp197 BUN 15 mg/dL 06/05/2016 Comp Metabolic Wbl519 B/C Ratio 20.5 Ratio 06/05/2016 Comp Metabolic Rum819 CALCIUM 9.2 mg/dL 06/05/2016 Comp Metabolic Mfl214 ALK PHOS 43 U/L 06/05/2016 Comp Metabolic Vtp170 AST(SGOT) 32 U/L 06/05/2016 Comp Metabolic Buo505 ALT(SGPT) 43 U/L 06/05/2016 Comp Metabolic Adl759 BILI T 0.4 mg/dL 06/05/2016 Comp Metabolic Nmd746 ALBUMIN 4.3 g/dL 06/05/2016 Comp Metabolic Mtk383 TPRO 6.2 g/dL 06/05/2016 Comp Metabolic Mgw235 GLOB 2.0 g/dL 06/05/2016 Comp Metabolic Tes782 A/G Ratio 2.2 Ratio 06/05/2016 Comp Metabolic Crn223 Osmo 256 mOsmo 06/05/2016 Cbc With Differential [...] 34.8 pg 06/05/2016 Cbc With Differential Ord2 [place]% 11.1 % 06/05/2016 Cbc With Differential Ord2 [...] 1.03 K/ul 06/05/2016 Cbc With Differential Ord2 [place] ABS# 0.8 K/ul 06/05/2016 Cbc With Differential Ord2 Eos ABS# 0.0 K/ul 06/05/2016 Cbc With Differential Ord2 Baso ABS# 0.0 K/ul 06/05/2016 Culture Urine [id number] URINE CULTURE SEE NOTES 06/01/2016 Culture Urine [id number] Continued Results 06/01/2016 Urine Culture Ucult Complete [...] affect 12/30/2016 None Full Exam - General 1995 Constitutional general appearance Overall: well developed 12/30/2016 [...] lips 04/30/2016 None Full Exam - General 1994 Ears/Nose/Throat lips/teeth/gingiva Overall: normal dentition 04/30/2016 None [...] Codes Date URINALYSIS NONAUTO W/O SCOPE CPT-4: 14446 05/11/2017 URINALYSIS NONAUTO W/O SCOPE CPT-4: 60506 04/01/2017 URINALYSIS NONAUTO W/O SCOPE CPT-4: 48458 03/05/2017 FLU VACC PRSV FREE INC ANTIG CPT-4: 84575 12/18/2016 ADMIN INFLUENZA VIRUS VAC CPT-4: G0008 12/18/2016 URINALYSIS NONAUTO W/O SCOPE CPT-4: 82924 11/26/2016 URINALYSIS NONAUTO W/O SCOPE CPT-4: 29472 11/06/2016 URINALYSIS NONAUTO W/O SCOPE CPT-4: 73181 10/16/2016 TRIAMCINOLONE ACET INJ NOS CPT-4: J3301 10/08/2016 URINALYSIS NONAUTO W/O SCOPE CPT-4: 23805 09/03/2016 URINALYSIS NONAUTO W/O SCOPE CPT-4: 50114 08/24/2016 URINALYSIS NONAUTO W/O SCOPE CPT-4: 51117 08/06/2016 THER/PROPH/DIAG INJ SC/IM CPT-4: 97309 07/14/2016 VITAMIN B12 INJECTION CPT-4: J3420 07/14/2016 URINALYSIS NONAUTO W/O SCOPE CPT-4: 95058 07/03/2016 THER/PROPH/DIAG INJ SC/IM CPT-4: 31888 06/26/2016 ROCEPHIN, PER 250 MG CPT-4: J0696 06/26/2016 URINALYSIS NONAUTO W/O SCOPE CPT-4: 38388 06/23/2016 URINALYSIS NONAUTO W/O SCOPE CPT-4: 03443 06/11/2016 URINALYSIS NONAUTO W/O SCOPE CPT-4: 81243 05/28/2016 THER/PROPH/DIAG INJ SC/IM CPT-4: 87589 05/28/2016 ROCEPHIN, PER 250 MG CPT-4: J0696 05/28/2016 REMOVAL OF IMPACTED WAX CPT-4: G0268 05/06/2016 Vital Signs Date Vital 03/19/2017 Blood Pressure 1: 144/76 Code : 8480-6 BMI: 26.3 Code : 61122-8 Heart Rate 1 : 102 bpm Height: 5'4" SpO2: 98% Temperature: 36.8 (C) / 98.3 (F) Weight: 153 lbs 03/08/2017 Blood Pressure 1: 136/80 Code : 8480-6 BMI: 26.9 Code : 08483-0 Heart Rate 1 : 76 bpm Height: 5'4" SpO2: 96% Weight: 157 lbs 02/02/2017 Blood Pressure 1: 148/68 Code : 8480-6 BMI: 26.9 Code : 10854-5 Heart Rate 1 : 76 bpm Height: 5'4" SpO2: 97% Weight: 157 lbs 01/15/2017 Blood Pressure 1: 142/76 Code : 8480-6 BMI: 26.9 Code : 79946-3 Heart Rate 1 : 86 bpm Height: 5'4" SpO2: 97% Weight: 157 lbs 12/30/2016 Blood Pressure 1: 140/76 Code : 8480-6 BMI: 26.9 Code : 61039-7 Heart Rate 1 : 84 bpm Height: 5'4" SpO2: 97% Weight: 157 lbs 12/22/2016 Blood Pressure 1: 130/78 Code : 8480-6 BMI: 26.9 Code : 72493-5 Heart Rate 1 : 80 bpm Height: 5'4" SpO2: 97% Weight: 157 lbs 12/18/2016 BMI: 26.9 Code: 67527-3 Height: 5'4" Weight: 157 lbs 11/20/2016 Blood Pressure 1: 134/60 Code : 8480-6 BMI: 25.9 Code : 18856-9 Heart Rate 1 : 80 bpm Height: 5'4" SpO2: 97% Weight: 151 lbs 11/16/2016 BMI: 25.6 Code: 25555-2 Heart Rate 1: 74 bpm Height: 5'4" SpO2: 97% Weight: 149 lbs 10/28/2016 Blood Pressure 1: 128/70 Code : 8480-6 BMI: 25.7 Code : 19725-1 Heart Rate 1 : 70 bpm Height: 5'4" SpO2: 96% Weight: 150 lbs 10/13/2016 Blood Pressure 1: 130/78 Code : 8480-6 Heart Rate 1: 69 bpm Height: 5'4" SpO2: 98% 10/08/2016 Blood Pressure 1: 122/70 Code : 8480-6 BMI: 25.6 Code : 19236-5 Heart Rate 1 : 79 bpm Height: 5'4" SpO2: 97% Temperature: 37.0 (C) / 98.6 (F) Weight: 149 lbs 09/29/2016 Blood Pressure 1: 124/70 Code : 8480-6 BMI: 25.4 Code : 30496-9 Heart Rate 1 : 74 bpm Height: 5'4" SpO2: 94% Weight: 148 lbs 09/03/2016 Blood Pressure 1: 120/68 Code : 8480-6 BMI: 24.7 Code : 63994-8 Heart Rate 1 : 59 bpm Height: 5'4" SpO2: 97% Weight: 144 lbs 08/24/2016 Blood Pressure 1: 128/74 Code : 8480-6 BMI: 24.7 Code : 96255-9 Heart Rate 1 : 75 bpm Height: 5'4" SpO2: 97% Weight: 144 lbs 08/11/2016 Blood Pressure 1: 142/76 Code : 8480-6 BMI: 24.9 Code : 27307-1 Heart Rate 1 : 77 bpm Height: 5'4" SpO2: 96% Weight: 145 lbs 08/03/2016 Blood Pressure 1: 142/78 Code : 8480-6 BMI: 25.1 Code : 13171-7 Heart Rate 1 : 75 bpm Height: 5'4" SpO2: 97% Temperature: 36.9 (C) / 98.5 (F) Weight: 146 lbs 07/27/2016 Blood Pressure 1: 158/80 Code : 8480-6 BMI: 25.1 Code : 44301-3 Heart Rate 1 : 72 bpm Height: 5'4" SpO2: 98% Weight: 146 lbs 07/21/2016 Blood Pressure 1: 144/76 Code : 8480-6 BMI: 25.1 Code : 59212-1 Heart Rate 1 : 80 bpm Height: 5'4" SpO2: 94% Temperature: 37.3 (C) / 99.2 (F) Weight: 146 lbs 07/14/2016 Blood Pressure 1: 128/74 Code : 8480-6 BMI: 25.1 Code : 52741-3 Heart Rate 1 : 79 bpm Height: 5'4" SpO2: 97% Temperature: 37.2 (C) / 98.9 (F) Weight: 146 lbs 8 oz 07/10/2016 Blood Pressure 1: 148/78 Code : 8480-6 BMI: 25.1 Code : 71074-3 Heart Rate 1 : 82 bpm Height: 5'4" SpO2: 96% Temperature: 37.2 (C) / 99.0 (F) Weight: 146 lbs 8 oz 07/03/2016 Blood Pressure 1: 134/76 Code : 8480-6 Heart Rate 1: 79 bpm Height: 5'4" SpO2: 98% Temperature: 36.9 (C) / 98.4 (F) 06/30/2016 Blood Pressure 1: 138/78 Code : 8480-6 BMI: 25.1 Code : 17155-1 Heart Rate 1 : 90 bpm Height: 5'4" SpO2: 97% Weight: 146 lbs 06/23/2016 Blood Pressure 1: 132/58 Code : 8480-6 BMI: 25.7 Code : 21206-2 Heart Rate 1 : 85 bpm Height: 5'4" SpO2: 97% Weight: 150 lbs 06/15/2016 Blood Pressure 1: 134/62 Code : 8480-6 BMI: 26.4 Code : 57278-8 Heart Rate 1 : 75 bpm Height: 5'4" SpO2: 95% Weight: 154 lbs 06/05/2016 Blood Pressure 1: 156/80 Code : 8480-6 BMI: 26.4 Code : 60456-6 Heart Rate 1 : 92 bpm Height: 5'4" SpO2: 98% Weight: 154 lbs 06/01/2016 Blood Pressure 1: 135/80 Code : 8480-6 Heart Rate 1: 95 bpm SpO2: 97% Temperature: 37.1 (C) / 98.8 (F) 05/28/2016 Blood Pressure 1: 140/80 Code : 8480-6 BMI: 26.1 Code : 66091-4 Heart Rate 1 : 89 bpm Height: 5'4" SpO2: 96% Weight: 152 lbs 05/11/2016 Blood Pressure 1: 154/86 Code : 8480-6 Heart Rate 1: 89 bpm Height: 5'4" SpO2: 95% Weight: 04/30/2016 Blood Pressure 1: 142/72 Code : 8480-6 BMI: 26.3 Code : 71182-5 Heart Rate 1 : 87 bpm Height: [...] data Encounters Encounter Performer Location Codes Date 75417 EST. PATIENT, LEVEL III Diagnosis: Dysuria[ICD10: R30.0] Diagnosis: Other malaise[ICD10: R53.81] Diagnosis: Other fatigue[ICD10: R53.83] Diagnosis: Generalized anxiety disorder[ICD10: F41.1] Meli Amador MD, [facility] CPT-4: 23672 03/19/2017 93477 EST. PATIENT, LEVEL III Diagnosis: Left lower quadrant pain[ICD10: R10.32] Meli Amador MD, [facility] CPT-4: 98339 03/08/2017 47948 EST. PATIENT, LEVEL III Diagnosis: Dysuria[ICD10: R30.0] Diagnosis: Generalized anxiety disorder[ICD10: F41.1] Meli Amador MD, [facility] CPT-4: 03851 02/02/2017 [id number] EST. PATIENT, LEVEL III Diagnosis: Generalized anxiety disorder[ICD10: F41.1] Diagnosis: Urinary tract infection, site not specified[ICD10: N39.0] Meli Amador MD, [facility] CPT-4: 61586 01/15/2017 18083 EST. PATIENT, LEVEL IV Diagnosis: Dysuria[ICD10: R30.0] Diagnosis: Rash and other nonspecific skin eruption[ICD10: R21] Meli Amador MD, [facility] CPT-4: 34097 12/30/2016 12712 EST. PATIENT, LEVEL IV Diagnosis: Localized edema[ICD10: R60.0] Diagnosis: Pain in left lower leg[ICD10: M79.662] Diagnosis: Dysuria[ICD10: R30.0] Meli Amador MD, [facility] CPT-4: 33719 12/22/2016 87220 EST. PATIENT, LEVEL IV Diagnosis: 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[ICD10: I83.92] Diagnosis: Urinary tract infection, site not specified[ICD10: N39.0] Diagnosis: Encounter for immunization[ICD10: Z23] Meli Amador MD, [facility] CPT-4: 94806 12/18/2016 ([id number]) 69576 EST. PATIENT, LEVEL III Diagnosis: 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[ICD10: I83.92] Diagnosis: Urinary tract infection, site not specified[ICD10: N39.0] Josiane Amador MD , [facility] CPT-4: 55002 11/20/2016 21488 EST. PATIENT, LEVEL III Diagnosis: Dysuria[ICD10: R30.0] Meli Amador MD, [facility] CPT-4: 49261 11/16/2016 ([id number]) 28354 EST. PATIENT, LEVEL III Diagnosis: Generalized anxiety disorder[ICD10: F41.1] Diagnosis: Urinary tract infection, site not specified[ICD10: N39.0] Mera Amador MD, [facility] CPT-4: 94508 10/28/2016 ([id number]) 45583 EST. 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 PATIENT, LEVEL III Diagnosis: Dysuria[ICD10: R30.0] Diagnosis: Essential (primary) hypertension[ICD10: I10] Mera Amador MD, [facility] CPT-4: 66602 09/29/2016 ([id number]) 15814 EST. PATIENT, LEVEL III Diagnosis: Generalized anxiety disorder[ICD10: F41.1] Diagnosis: Dysuria[ICD10: R30.0] Diagnosis: Personal history of urinary (tract) infections[ICD10: Z87.440] Mera Amador MD, [facility] CPT-4: 57063 09/03/2016 ([id number]) 87602 EST. PATIENT, LEVEL IV Diagnosis: Essential (primary) hypertension[ICD10: I10] Diagnosis: Generalized anxiety disorder[ICD10: F41.1] Diagnosis: Dysuria[ICD10: R30.0] Mera Amador MD, [facility] CPT-4: 40625 08/24/2016 67601 EST. PATIENT, LEVEL IV Diagnosis: Hypo-osmolality and hyponatremia[ICD10: E87.1] Diagnosis: Generalized anxiety disorder[ICD10: F41.1] Diagnosis: Pelvic and perineal pain[ICD10: R10.2] Diagnosis: Candidal stomatitis[ICD10: B37.0] Meli Amador MD, [facility] CPT -4: 04090 08/11/2016 ([id number]) 13761 EST. PATIENT, LEVEL III Diagnosis: Generalized anxiety disorder[ICD10: F41.1] Diagnosis: Pelvic and perineal pain[ICD10: R10.2] Josiane Amador MD, [facility] CPT-4: 15959 08/03/2016 19720 EST. PATIENT, LEVEL IV Diagnosis: Generalized anxiety disorder[ICD10: F41.1] Diagnosis: Pelvic and perineal pain[ICD10: R10.2] Diagnosis: Gastro-esophageal reflux disease without esophagitis[ICD10: K21.9] Meli Amador MD, [facility] CPT-4: 60508 07/27/2016 ([id number]) 13181 EST. PATIENT, LEVEL III Diagnosis: Urinary tract infection, site not specified[ICD10: N39.0] Diagnosis: Gastro-esophageal reflux disease without esophagitis[ICD10: K21.9] Diagnosis: Generalized anxiety disorder[ICD10: F41.1] Josiane Amador MD, [facility] CPT-4: 79672 07/21/2016 ([id number]) 95530 EST. PATIENT, LEVEL III Diagnosis: Generalized anxiety disorder[ICD10: F41.1] Diagnosis: Essential (primary) hypertension[ICD10: I10] Diagnosis: Vitamin B12 deficiency anemia, unspecified[ICD10: D51.9] Josiane Amador MD , [facility] CPT-4: 39695 07/14/2016 ([id number]) 38161 EST. 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 PATIENT, LEVEL III Diagnosis: Urinary tract infection, site not specified[ICD10: N39.0] Diagnosis: Hypo-osmolality and hyponatremia[ICD10: E87.1] Josiane Amador MD, [facility] CPT-4: 57453 07/03/2016 34833 EST. PATIENT, LEVEL IV Diagnosis: Generalized anxiety disorder[ICD10: F41.1] Diagnosis: Major depressive disorder, recurrent, mild[ICD10: F33.0] Diagnosis: Hypo-osmolality and hyponatremia[ICD10: E87.1] Meli Amador MD, [facility] CPT-4: 43849 06/30/2016 ([id number]) 97993 EST. PATIENT, LEVEL III Diagnosis: Hypo-osmolality and hyponatremia[ICD10: E87.1] Diagnosis: Dysuria[ICD10: R30.0] Diagnosis: Essential (primary) hypertension[ICD10: I10] Mera Amador MD, [facility] CPT-4: 54227 06/23/2016 92767 EST. PATIENT, LEVEL III Diagnosis: Candidal stomatitis[ICD10: B37.0] Diagnosis: Gastro-esophageal reflux disease without esophagitis[ICD10: K21.9] Diagnosis: Hypo-osmolality and hyponatremia[ICD10: E87.1] Meli Amador MD, [facility] CPT-4: 48877 06/15/2016 ([id number]) 17415 EST. PATIENT, LEVEL III Diagnosis: Essential (primary) hypertension[ICD10: I10] Diagnosis: Hypo-osmolality and hyponatremia[ICD10: E87.1] Diagnosis: Urinary tract infection, site not specified[ICD10: N39.0] Josiane Amador MD , [facility] CPT-4: 69971 06/05/2016 ([id number]) 99746 EST. PATIENT, LEVEL III Diagnosis: Urinary tract infection, site not specified[ICD10: N39.0] Josiane Amador MD , [facility] CPT-4: 22051 06/01/2016 ([id number]) 45562 EST. 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 PATIENT, LEVEL III Diagnosis: Pain in left toe(s)[ICD10: M79.675] Diagnosis: Tinea unguium[ICD10: B35.1] Josiane Amador MD, [facility] CPT-4: 63091 05/11/2016 ([id number]) OFFICE VISIT, NEW - LEVEL 4 Diagnosis: Essential (primary) hypertension[ICD10: I10] Diagnosis: Hypo-osmolality and hyponatremia[ICD10: E87.1] Mera Amador MD, [facility] CPT-4: 85673 04/30/2016 Plan of Care Planned Activity Notes Codes Status Date Care Plan: Urine Culture Pending 05/12/2017 Appointment: Lab Draw 05/11/2017 Patient Education: Patient Medication Summary Completed 05/11/2017 Appointment: Meli Malone WPtel: [address] [place], [place] [id number] (30 min) Complex 05/10/2017 Appointment: [facility] [phone] [facility] [place] [place] ([place] min) Complex 04/30/2017 Appointment: Lab Draw 04/29/2017 Appointment: M[facility] [phone] [facility] [place] [place] [place] ([place]) Complex 04/29/2017 Appointment: Meli Malone WPtel[facility] [phone] [facility] [place] [place] [place] ([place]) Complex 04/23/2017 Appointment: Lab Draw 04/01/2017 Patient Education: Patient Medication Summary Completed 04/01/2017 Appointment: Meli Malone [facility]el[facility] [phone] [facility] [place] [place] ([place] min) Complex 03/19/2017 Patient Education: Patient Medication Summary Completed 03/19/2017 Appointment: Meli Malone WPtel: [facility] [phone] [facility] [place] [place] [place] ([place] min) Complex 03/08/2017 Patient Education: Patient Medication Summary Completed 03/08/2017 Appointment: Lab Draw 03/05/2017 Patient Education: Patient Medication Summary Completed 03/05/2017 Appointment: Lab Draw 02/23/2017 Appointment: Lab Draw 02/08/2017 Patient Education: Patient Medication Summary Completed 02/08/2017 Appointment: Meli Malone WPtel: [facility] [phone] [facility] [place] [place] ([place]) Complex 02/02/2017 Patient Education: Patient Medication Summary Completed 02/02/2017 Patient Education: Patient Medication Summary Completed 01/15/2017 Referral: External, Ordering Provider Referral Initiated 01/06/2017 Appointment: Meli Malone WPtel: [facility] [phone] [facility] [place] [place] [place] ([place] min) Complex 12/30/2016 Patient Education: Patient Medication Summary Completed 12/30/2016 Appointment: Meli Malone WPtel: [facility] [address] [facility] [place] (15 min) Moderate 12/22/2016 Patient Education: Patient Medication Summary Completed 12/22/2016 Care Plan: VASCULAR STUDY Pending 12/22/2016 Care Plan: Referral Order SNOMED-CT : [id number] Pending 12/20/2016 Appointment: Meli Malone WPtel[facility] [phone] [facility] [place] [place] (15 min) Moderate 12/18/2016 Patient Education: Patient Medication Summary Completed 12/18/2016 Appointment: Lab Draw 12/04/2016 Appointment: Meli Malone WPtel: [facility] [phone] [facility] [place] [place] (30 min) Complex 11/27/2016 Appointment: Lab Draw 11/26/2016 Patient Education: Patient Medication Summary Completed 11/26/2016 Appointment: Josiane Berry WPtel: [facility] [phone] [phone] [place] (30 min) Complex 11/20/2016 Patient Education: Patient Medication Summary Completed 11/20/2016 Appointment: Meli Malone WPtel: [facility] [phone] [facility] [place] [place] [place] (15 min) Moderate 11/16/2016 Patient Education: Patient Medication Summary Completed 11/16/2016 Appointment: Lab Draw 11/13/2016 Appointment: Lab Draw 11/06/2016 Patient Education: Patient Medication Summary Completed 11/06/2016 Care Plan: Urine Culture Pending 11/06/2016 Appointment: Mera Amador WPtel: [phone] [place] (15 min) Moderate 10/28/2016 Patient Education: Patient Medication Summary Completed 10/28/2016 Appointment: Lab Draw 10/16/2016 Patient Education: Patient Medication Summary Completed 10/16/2016 Appointment: Josiane Berry WPtel: [facility] [phone] [phone] [place] (15 min) Moderate 10/13/2016 Patient Education: Patient Medication Summary Completed 10/13/2016 Appointment: Josiane Berry WPtel: [facility] [phone] [facility] [place] [phone] [place] (30 min) Complex 10/08/2016 Patient Education: Patient Medication Summary Completed 10/08/2016 Appointment: Mera Amador [facility]Ptel: [phone] [facility] [place] [place] (15 min) Moderate 09/29/2016 Patient Education: Patient Medication Summary Completed 09/29/2016 Appointment: Mear Amador WPtel: [phone] [facility] [place] [place] (15 min) Moderate 09/23/2016 Appointment: Lab Draw 09/09/2016 Appointment: Mera Amador WPtel: [phone] [facility] [place] [place] (15 min) Moderate 09/03/2016 Patient Education: Patient Medication Summary Completed 09/03/2016 Appointment: Mera Amador WPtel: [phone] [facility] [place] [place] (15 min) Moderate 08/24/2016 Patient Education: Patient Medication Summary Completed 08/24/2016 Appointment: Meli Malone WPtel: [phone] [facility] [place] [place] [place] ([place]) Complex 08/11/2016 Patient Education: Patient Medication Summary Completed 08/11/2016 Appointment: Lab Draw 08/06/2016 Patient Education: Patient Medication Summary Completed 08/06/2016 Appointment: Josiane Berry WPtel: [phone] [facility] [place] [phone] [place] (15 min) Moderate 08/04/2016 Appointment: Josiane Berry WPtel: [phone] [phone] [place] (10 min) Simple 08/03/2016 Patient Education: Patient Medication Summary Completed 08/03/2016 Appointment: Meli Malone WPtel: [phone] [facility] [place] [place] (15 min) Moderate 07/27/2016 Patient Education: Patient Medication Summary Completed 07/27/2016 Appointment: Josiane Berry WPtel: [phone] [phone] [place] (15 min) Moderate 07/21/2016 Patient Education: Patient Medication Summary Completed 07/21/2016 Appointment: Josiane Berry WPtel: [phone] [phone] [place] (30 min) Complex 07/14/2016 Patient Education: Patient Medication Summary Completed 07/14/2016 Appointment: Josiane Berry WPtel: [facility] [phone] [phone] [place] (15 min) Moderate 07/10/2016 Patient Education: Patient Medication Summary Completed 07/10/2016 Appointment: Josiane Berry WPtel: [facility] [phone] [phone] [place] (15 min) Moderate 07/03/2016 Patient Education: Patient Medication Summary Completed 07/03/2016 Appointment: Meli Malone WPtel: [facility] [phone] [facility] (30 min) Complex 06/30/2016 Patient Education: Patient Medication Summary Completed 06/30/2016 Appointment: Injection 06/26/2016 Patient Education: Patient Medication Summary Completed 06/26/2016 Appointment: Mera Amador WPtel: [address] [place], [place] [address] [place] (15 min) Moderate 06/23/2016 Patient Education: Patient Medication Summary Completed 06/23/2016 Care Plan: Urinalysis Pending 06/23/2016 Appointment: Meli Malone WPtel: [address] [place], [place] [address] [place] (10 min) Simple 06/15/2016 Patient Education: Patient Medication Summary Completed 06/15/2016 Appointment: Lab Draw 06/11/2016 Patient Education: Patient Medication Summary Completed 06/11/2016 Patient Education: Patient Medication Summary Completed 06/11/2016 Appointment: Josiane Berry WPtel: [facility] [phone] [phone] [place] (15 min) Moderate 06/05/2016 Patient Education: Patient Medication Summary Completed 06/05/2016 Appointment: Josiane Berry WPtel: [address] [place], [place] [phone] (15 min) Moderate 06/01/2016 Patient Education: Patient Medication Summary Completed 06/01/2016 Appointment: Mera Amador [facility]Ptel[phone] [facility] [place] (15 min) Moderate 05/28/2016 Patient Education: Patient Medication Summary Completed 05/28/2016 Appointment: Josiane Berry WPtel: [facility] [phone] [phone] (15 min) Moderate 05/11/2016 Patient Education: Patient Medication Summary Completed 05/11/2016 Appointment: Nurse Visit 05/06/2016 Patient Education: Patient Medication Summary Completed 05/06/2016 Appointment: Mera Amador WPtel: [phone] [facility] [place] New Patient 04/30/2016 Patient Education: Patient Medication Summary Completed 04/30/2016 Referral: External, Ordering Provider Referral Initiated Instructions No Instructions
--- OUTSIDE RECORDS SUMMARY | 2017-07-04 04:07 | XMS REPORT | CCD ---
Author Author [facility] Organization [facility] Address [address] [place] [address] Phone Care Team Providers Care Crib Pad Maker Name Role Phone PP Unavailable CCM Unavailable Summary Purpose Interface Exchange Insurance Providers Payer name Policy type / Coverage type Covered republican ID Effective Begin Date Effective End Date WPS Medicare Part B Medicare Part B [id number] Unknown Unknown AARP Medicare Part B [id number] Unknown Unknown Family History Family History data not found Social History Social History Element Codes Description Effective Dates Marital status Unknown 04/30/[address]: 367846390 Never smoker 04/30/[address]: 718611107 Never drinks alcohol 04/30/2016 Allergies, Adverse Reactions, Alerts Substance Reaction Codes Entered Date Inactivated Date Status cephalexin rash RxNorm: 2231 10/28/2016 No Inactive Date Active ultram pruritis RxNorm: 29154 08/24/2016 No Inactive Date Active Past Medical [...] 06/15/2016 Unknown Pelvic and perineal pain ICD-9: [id number] ICD-10: R10.2 Active 08/03/2016 Unknown Vitamin B12 [...] 06/15/2016 Active Pelvic and perineal pain ICD-9: [id number] ICD-10: R10.2 08/03/2016 Active Vitamin B12 deficiency [...] Instructions Augmentin 500 mg-125 mg tablet RxNorm: 918520 1 Tablet(s) PO TID 05/11/2017 05/17/2017 Active Xanax 0.25 mg tablet RxNorm: 453807 1/2-1 Tablet(s) PO TID as needed 05/07/2017 07/05/2017 Active omeprazole 40 mg capsule,delayed release RxNorm: 826577 TAKE ONE CAPSULE BY MOUTH ONCE DAILY 05/06/2017 No Stop Date Active prednisone 10 mg tablet RxNorm: 538956 Tablet(s) PO UD 2017 No Stop Date Active 20,20,10,10 Tessalon Perles 100 mg capsule RxNorm: 584246 1-2 Capsule(s) PO TID as needed cough 04/23/2017 No Stop Date Active prednisone 10 mg tablet RxNorm: 719819 Tablet(s) PO 04/23/2017 No Stop Date Active 6, 5,4,3,2,1 doxycycline hyclate 100 mg capsule RxNorm: 8214560 1 Capsule(s) PO BID 04/23/2017 05/02/2017 Inactive Kenalog 40 mg/mL suspension for injection RxNorm: 0173419 1 Milliliter(s) Inj 04/23/2017 04/23/2017 Inactive Cipro 500 mg tablet RxNorm: 538923 1 Tablet(s) PO BID 201704/16/2017 Inactive Cipro 500 mg tablet RxNorm: 957054 1 Tablet(s) PO BID 201603/25/2017 Inactive hydrocodone 5 mg-acetaminophen 325 mg tablet RxNorm: 087636 1 Tablet(s) PO Q6 as needed 03/05/2017 03/19/2017 Inactive Diflucan 150 mg tablet RxNorm: 278788 1 Tablet(s) PO daily 03/05/2017 Inactive Diflucan 150 mg tablet RxNorm: 032498 1 Tablet(s) PO daily 02/28/2017 Inactive Seasonique 0.15 mg-30 mcg (84)/10 mcg(7) tablets,3 month dose pack RxNorm: 082785 1 Tablet(s) PO UD 02/24/2017 02/24/2017 Inactive losartan 50 mg tablet RxNorm: 886615 TAKE ONE TABLET BY MOUTH ONCE DAILY IN THE MORNING 02/23/2017 No Stop Date Active Diflucan 150 mg tablet RxNorm: 228857 1 Tablet(s) PO daily 09/201602/14/2017 Inactive Cipro 500 mg tablet RxNorm: 911337 1 Tablet(s) PO BID 201601/21/2017 Inactive Augmentin 500 mg-125 mg tablet RxNorm: 341190 1 Tablet(s) PO TID 12/30/2016 12/29/2016 Inactive Augmentin 500 mg-125 mg tablet RxNorm: 625973 1 Tablet(s) PO TID 12/30/2016 01/05/2017 Inactive hydrocodone 5 mg-acetaminophen 325 mg tablet RxNorm: 685014 1 Tablet(s) PO Q6 as needed 12/24/2016 01/07/2017 Inactive omeprazole 40 mg capsule,delayed release RxNorm: 374580 TAKE ONE CAPSULE BY MOUTH ONCE DAILY 12/08/2016 04/06/2017 Inactive Diflucan 150 mg tablet RxNorm: 987364 1 Tablet(s) PO daily 12/02/2016 Inactive Xanax 0.25 mg tablet RxNorm: 478421 1/2-1 Tablet(s) PO TID as needed 11/24/2016 01/20/2017 Inactive Xanax 0.25 mg tablet RxNorm: 539589 1/2-1 Tablet(s) PO TID as needed 11/24/2016 01/22/2017 Inactive sucralfate 1 gram tablet RxNorm: 747776 TAKE ONE TABLET BY MOUTH BEFORE MEALS AND AT BEDTIME 11/20/2016 12/19/2016 Inactive Diflucan 150 mg tablet RxNorm: 974732 1 Tablet(s) PO daily 11/22/2016 Inactive Levaquin 500 mg tablet RxNorm: 844522 1 Tablet(s) PO daily 10/201611/08/2016 Inactive Levaquin 500 mg tablet RxNorm: 966817 1 Tablet(s) PO daily 10/201611/15/2016 Inactive losartan 50 mg tablet RxNorm: 434580 1 Tablet(s) PO QAM 201602/22/2017 Inactive hydrocodone 5 mg-acetaminophen 325 mg tablet RxNorm: 879444 1 Tablet(s) PO Q6 as needed 10/26/2016 11/09/2016 Inactive Kenalog 40 mg/mL suspension for injection RxNorm: 0798488 1 Milliliter(s) Inj 10/08/2016 10/08/2016 Inactive prednisone 5 mg tablets in a dose pack RxNorm: 711796 1 Tablet(s) PO UD 10/08/2016 10/12/2016 Inactive 6-5-4-3-2-1 Diflucan 150 mg tablet RxNorm: 102501 1 Tablet(s) PO daily 06/201610/04/2016 Inactive Diflucan 150 mg tablet RxNorm: 722875 1 Tablet(s) PO daily 06/201610/09/2016 Inactive Lexapro 10 mg tablet RxNorm: 860733 1 Tablet(s) PO QHS 201601/26/2017 Inactive cefdinir 300 mg capsule RxNorm: 334473 1 Capsule(s) PO BID 10/07/2016 Inactive Lexapro 5 mg tablet RxNorm: 317551 1 Tablet(s) PO QHS 201609/28/2016 Inactive trimethoprim 100 mg tablet RxNorm: 566124 1 Tablet(s) PO daily 09/03/2016 03/01/2017 Inactive hydrocodone 5 mg-acetaminophen 325 mg tablet RxNorm: 205356 1 Tablet(s) PO Q6 as needed 08/28/2016 09/11/2016 Inactive Diflucan 150 mg tablet RxNorm: 408808 1 Tablet(s) PO QW as needed symptoms of thrush 08/26/2016 09/28/2016 Inactive Xanax 0.25 mg tablet RxNorm: 594459 1/2-1 Tablet(s) PO TID as needed 08/24/2016 10/20/2016 Inactive tramadol 50 mg tablet RxNorm: 545871 1-2 Tablet(s) PO Q6 as needed for pain 08/14/2016 09/28/2016 Inactive amoxicillin 500 mg capsule RxNorm: 231125 1 Capsule(s) PO TID 08/11/2016 08/20/2016 Inactive nystatin 100,000 unit/mL oral suspension RxNorm: 985219 5 Milliliter(s) PO QID 08/11/2016 08/17/2016 Inactive cefdinir 300 mg capsule RxNorm: 326748 1 Capsule(s) PO BID 12/201608/20/2016 Inactive losartan 50 mg tablet RxNorm: 145343 1 Tablet(s) PO QAM 201610/24/2016 Inactive fluconazole 200 mg tablet RxNorm: 125735 1 Tablet(s) PO daily 07/19/2016 07/28/2016 Inactive cefuroxime axetil 500 mg tablet RxNorm: 156970 1 Tablet(s) PO BID 07/19/2016 08/02/2016 Inactive Xanax 0.25 mg tablet RxNorm: 725158 1/2-1 Tablet(s) PO QDAY PRN 07/14/2016 08/23/2016 Inactive cyanocobalamin (vit B-12) 1,000 mcg/mL injection solution RxNorm: 751220 1 Milliliter(s) Inj 07/14/2016 07/14/2016 Inactive Diflucan 150 mg tablet RxNorm: 843424 1 Tablet(s) PO daily 10/201607/17/2016 Inactive Keflex 250 mg capsule RxNorm: 642562 1 Capsule(s) PO QHS 201607/13/2016 Inactive Lexapro 5 mg tablet RxNorm: 320942 1 Tablet(s) PO QHS TO START AFTER YOU ARE FINISHED WITH THE DIFLUCAN!! 06/30/2016 Inactive cefuroxime axetil 250 mg tablet RxNorm: 710905 1 Tablet(s) PO BID 06/26/2016 06/25/2016 Inactive ceftriaxone 500 mg solution for injection RxNorm: 2506683 1 Milliliter(s) Inj 06/26/2016 06/26/2016 Inactive cefuroxime axetil 250 mg tablet RxNorm: 458576 1 Tablet(s) PO BID 06/26/2016 07/05/2016 Inactive Diflucan 150 mg tablet RxNorm: 497543 1 Tablet(s) PO QW as needed symptoms of thrush 06/23/2016 08/02/2016 Inactive Zantac 150 mg tablet RxNorm: 648692 1 Tablet(s) PO daily 201607/14/2016 Inactive Xanax 0.25 mg tablet RxNorm: 035456 1/2-1 Tablet(s) PO HS PRN 06/05/2016 07/13/2016 Inactive Keflex 250 mg capsule RxNorm: 629153 1 Capsule(s) PO QHS as needed 06/05/2016 07/04/2016 Inactive Cipro 500 mg tablet RxNorm: 098928 1 Tablet(s) PO BID 201606/07/2016 Inactive ceftriaxone 500 mg solution for injection RxNorm: 9762349 1 Milliliter(s) Inj 05/28/2016 05/28/2016 Inactive cefdinir 300 mg capsule RxNorm: 644702 1 Capsule(s) PO BID 05/31/2016 Inactive metronidazole 500 mg tablet RxNorm: 668415 1 Tablet(s) PO BID 05/28/2016 06/03/2016 Inactive sucralfate 1 gram tablet RxNorm: 455878 1 Tablet(s) PO AC & HS 05/21/2016 07/20/2016 Inactive sucralfate 1 gram tablet RxNorm: 153036 1 Tablet(s) PO AC & HS 05/21/2016 05/20/2016 Inactive omeprazole 40 mg capsule,delayed release RxNorm: 863917 1 Capsule(s) PO daily 05/21/2016 08/18/2016 Inactive omeprazole 40 mg capsule,delayed release RxNorm: 210641 1 Capsule(s) PO daily 05/21/2016 05/20/2016 Inactive losartan 50 mg tablet RxNorm: 146372 1 Tablet(s) PO QAM 201607/26/2016 Inactive latanoprost 0.005 % eye drops RxNorm: 232386 1 Drop(s) OPH daily No Start Date Active Culturelle 15 billion cell sprinkle capsule RxNorm: 5861145 1 Capsule(s) PO TID No Start Date Active Calcium 500 + D (D3) oral RxNorm: 439153 oral No Start Date Active cranberry 500 mg capsule RxNorm: 679453 1 Capsule(s) PO daily No Start Date Active Ocuvite Lutein and Zeaxanthin 60 mg-30 unit-15 mg-2 mg-6 mg capsule RxNorm: 121255 1 Capsule(s) PO daily No Start Date Active Pyridium 200 mg tablet RxNorm: 8448669 1 Tablet(s) PO TID as needed No Start Date Active Toviaz 4 mg tablet,extended release RxNorm: 740434 1 Tablet(s) PO daily No Start Date Active Klor-Con 10 mEq tablet,extended release RxNorm: 468438 1 Tablet(s) PO BID No Start Date Active Estrace 0.01% (0.1 mg/gram) vaginal cream RxNorm: 688884 1 Application VAG TIW No Start Date 07/13/2016 Inactive allopurinol 300 mg tablet RxNorm: 801168 1 Tablet(s) PO daily No Start Date 06/22/2016 Inactive triamterene 37.5 mg-hydrochlorothiazide 25 mg tablet RxNorm: 189920 1 Tablet(s) PO daily No Start Date 10/07/2016 Inactive Seasonique 0.15 mg-30 mcg (84)/10 mcg(7) tablets,3 month dose pack RxNorm: 219358 1 Tablet(s) PO UD No Start Date 2016 Inactive hydrocodone 5 mg-acetaminophen 325 mg tablet RxNorm: 304759 1 Tablet(s) PO as needed No Start Date 08/27/2016 Inactive meloxicam 7.5 mg tablet RxNorm: 291733 1 Tablet(s) PO daily as needed No Start Date 10/07/2016 Inactive Multivitamins FC tablet RxNorm: 1 Tablet(s) PO daily No Start Date 10/07/2016 Inactive Fish Oil 1,000 mg capsule RxNorm: 1 Capsule(s) PO BID No Start Date 05/27/2016 Inactive tramadol 50 mg tablet RxNorm: 308842 1-2 Tablet(s) PO Q6 as needed for pain No Start Date 08/13/2016 Inactive Medication Administered Medication Codes Instructions Start Date Status Kenalog 40 mg/mL suspension for injection RxNorm: 1111316 1Milliliter 10/08/2016 No longer Active cyanocobalamin (vit B-12) 1,000 mcg/mL injection solution RxNorm: 531905 1Milliliter 07/14/2016 No longer Active ceftriaxone 500 mg solution for injection RxNorm: 1593138 1Milliliter 06/26/2016 No longer Active ceftriaxone 500 mg solution for injection RxNorm: 5925205 1Milliliter 05/28/2016 No longer Active Immunizations Vaccine [...] Pelvic and perineal pain ICD-10: R10.2 ICD-9: [id number] 08/11/2016 Hypo-osmolality and hyponatremia ICD-10: E87.1 ICD-9: [...] Item Item Code Result Date Culture Urine [id number] URINE CULTURE SEE NOTES 04/06/2017 Culture Urine [id number] Continued Results 04/06/2017 Urine Culture Ucult Complete >100,000 col/ml aerobic growth sent to ref lab 04/02/2017 Culture Urine [id number] URINE CULTURE SEE NOTES 03/22/2017 Culture Urine [id number] Continued Results 03/22/2017 Urine Culture Ucult Complete >100,000 col/ml aerobic growth sent to ref lab 03/20/2017 Comp Metabolic Tgl464 NA 131 mEq/L 03/19/2017 Comp Metabolic Csp333 K 4.0 mEq/L 03/19/2017 Comp Metabolic Gfe332 CL 93 mEq/L 03/19/2017 Comp Metabolic Wlj801 CO2 28.0 mEq/L 03/19/2017 Comp Metabolic Kkg202 ANION GAP 14 03/19/2017 Comp Metabolic Gah089 GLUCOSE 94 mg/dL 03/19/2017 Comp Metabolic Uqs297 Creat 0.8 mg/dL 03/19/2017 Comp Metabolic Ado529 eGFR 69 ml/min/1.73m2 03/19/2017 Comp Metabolic Xmr005 BUN 16 mg/dL 03/19/2017 Comp Metabolic Pvd580 B/C Ratio 19.3 Ratio 03/19/2017 Comp Metabolic Rsf027 CALCIUM 9.5 mg/dL 03/19/2017 Comp Metabolic Qya687 ALK PHOS 54 U/L 03/19/2017 Comp Metabolic Rkj247 AST(SGOT) 22 U/L 03/19/2017 Comp Metabolic Bfv164 ALT(SGPT) 18 U/L 03/19/2017 Comp Metabolic Moi032 BILI T 0.4 mg/dL 03/19/2017 Comp Metabolic Gvc746 ALBUMIN 4.2 g/dL 03/19/2017 Comp Metabolic Hvk394 TPRO 6.2 g/dL 03/19/2017 Comp Metabolic Zzt256 GLOB 2.0 g/dL 03/19/2017 Comp Metabolic Mte390 A/G Ratio 2.2 Ratio 03/19/2017 Comp Metabolic Rie059 Osmo 264 mOsmo 03/19/2017 Cbc With Differential [...] 34.3 pg 03/19/2017 Cbc With Differential Ord2 Ple[place]% 10.3 % 03/19/2017 Cbc With Differential Ord2 [...] 1.49 K/ul 03/19/2017 Cbc With Differential Ord2 [place] ABS# 1.2 K/ul 03/19/2017 Cbc With Differential [...] Ord15 CALCIUM 9.3 mg/dL 08/11/2016 Culture Urine [id number] URINE CULTURE SEE NOTES 08/10/2016 Culture Urine [id number] Continued Results 08/10/2016 Urine Culture Ucult Complete >100,000 col/ml aerobic growth sent to ref lab 08/07/2016 Wet Prep [id number] Yeast Vaginal TNP:Duplicate Order 2016 Wet Prep [id number] Trichomonas TNP:Duplicate Order 07/10/2016 Cbc With Differential [...] 16.9 % 07/10/2016 Cbc With Differential Ord2 Pleasants% 10.7 % 07/10/2016 Cbc With Differential Ord2 MCH 34.6 pg 07/10/2016 Cbc With Differential Ord2 Eos% 0.6 % 07/10/2016 Cbc With Differential Ord2 MCHC 34.6 pg 07/10/2016 Cbc With Differential Ord2 Baso% 0.5 % 07/10/2016 Cbc With Differential Ord2 PLT 269 K/ul 07/10/2016 Cbc With Differential Ord2 Neut ABS# 5.69 K/ul 07/10/2016 Cbc With Differential Ord2 RDW 13.0 % 07/10/2016 Cbc With Differential Ord2 Lymph ABS# 1.35 K/ul 07/10/2016 Cbc With Differential Ord2 Pleasants ABS# 0.9 K/ul 07/10/2016 Cbc With Differential Ord2 Eos ABS# 0.1 K/ul 07/10/2016 Cbc With Differential Ord2 Baso ABS# 0.0 K/ul 07/10/2016 Comp Metabolic Cco939 NA 132 mEq/L 07/10/2016 Comp Metabolic Qzg800 K 3.9 mEq/L 07/10/2016 Comp Metabolic Ovu745 CL 94 mEq/L 07/10/2016 Comp Metabolic Ljz884 CO2 28.0 mEq/L 07/10/2016 Comp Metabolic Vbp506 ANION GAP 14 07/10/2016 Comp Metabolic Jsd867 GLUCOSE 96 mg/dL 07/10/2016 Comp Metabolic Sua091 Creat 0.8 mg/dL 07/10/2016 Comp Metabolic Pwx068 eGFR 70 ml/min/1.73m2 07/10/2016 Comp Metabolic Vxj682 BUN 22 mg/dL 07/10/2016 Comp Metabolic Sux470 B/C Ratio 26.8 Ratio 07/10/2016 Comp Metabolic Msj864 CALCIUM 10.2 mg/dL 07/10/2016 Comp Metabolic Aab530 ALK PHOS 50 U/L 07/10/2016 Comp Metabolic Gut117 AST(SGOT) 21 U/L 07/10/2016 Comp Metabolic Rgo435 ALT(SGPT) 19 U/L 07/10/2016 Comp Metabolic Klu203 BILI T 0.5 mg/dL 07/10/2016 Comp Metabolic Dey763 ALBUMIN 4.2 g/dL 07/10/2016 Comp Metabolic Snx314 TPRO 6.6 g/dL 07/10/2016 Comp Metabolic Zot447 GLOB 2.4 g/dL 07/10/2016 Comp Metabolic Mwm943 A/G Ratio 1.8 Ratio 07/10/2016 Comp Metabolic Nzv677 Osmo 268 mOsmo 07/10/2016 Wet Prep [id number] Yeast Vaginal None 07/10/2016 Wet Prep [id number] Trichomonas None 07/10/2016 Cbc With Differential Ord2 WBC 8.91 K/ul 07/03/2016 Cbc With Differential Ord2 RBC 4.16 M/ul 07/03/2016 Cbc With Differential Ord2 HGB 14.1 g/dl 07/03/2016 Cbc With Differential Ord2 HCT 41.2 % 07/03/2016 Cbc With Differential Ord2 Neut% 72.5 % 07/03/2016 Cbc With Differential Ord2 Lymph% 15.7 % 07/03/2016 Cbc With Differential Ord2 MCV 99.0 fl 07/03/2016 Cbc With Differential Ord2 MCH 33.9 pg 07/03/2016 Cbc With Differential Ord2 [place]% 10.3 % 07/03/2016 Cbc With Differential Ord2 [...] 1.40 K/ul 07/03/2016 Cbc With Differential Ord2 [place] ABS# 0.9 K/ul 07/03/2016 Cbc With Differential Ord2 Eos ABS# 0.1 K/ul 07/03/2016 Cbc With Differential Ord2 Baso ABS# 0.1 K/ul 07/03/2016 Comp Metabolic Vlc005 NA 131 mEq/L 07/03/2016 Comp Metabolic Hvp222 K 4.4 mEq/L 07/03/2016 Comp Metabolic Wkv554 CL 92 mEq/L 07/03/2016 Comp Metabolic Yis739 CO2 28.0 mEq/L 07/03/2016 Comp Metabolic Ntf706 ANION GAP 15 07/03/2016 Comp Metabolic Oui158 GLUCOSE 96 mg/dL 07/03/2016 Comp Metabolic Nve633 Creat 0.8 mg/dL 07/03/2016 Comp Metabolic Xix478 eGFR 76 ml/min/1.73m2 07/03/2016 Comp Metabolic Uoh735 BUN 22 mg/dL 07/03/2016 Comp Metabolic Uom774 B/C Ratio 28.9 Ratio 07/03/2016 Comp Metabolic Udk930 CALCIUM 10.3 mg/dL 07/03/2016 Comp Metabolic Wpe166 ALK PHOS 49 U/L 07/03/2016 Comp Metabolic Lkb425 AST(SGOT) 21 U/L 07/03/2016 Comp Metabolic Dtw310 ALT(SGPT) 19 U/L 07/03/2016 Comp Metabolic Hma589 BILI T 0.5 mg/dL 07/03/2016 Comp Metabolic Jya574 ALBUMIN 4.3 g/dL 07/03/2016 Comp Metabolic Bcv347 TPRO 6.7 g/dL 07/03/2016 Comp Metabolic Kci296 GLOB 2.4 g/dL 07/03/2016 Comp Metabolic Kax908 A/G Ratio 1.8 Ratio 07/03/2016 Comp Metabolic Rqb043 Osmo 266 mOsmo 07/03/2016 Metabolic Ord15 NA 131 mEq/L 06/23/2016 Metabolic [...] 06/23/2016 Metabolic Ord15 CALCIUM 9.4 mg/dL 06/23/2016 Magnesium Ord90 Mag 1.9 mg/dL 06/23/2016 Electrolytes Ord62 NA 129 mEq/L 06/11/2016 Electrolytes Ord62 K 3.9 mEq/L 06/11/2016 Electrolytes Ord62 CL 93 mEq/L 06/11/2016 Electrolytes Ord62 CO2 28.0 mEq/L 06/11/2016 Electrolytes Ord62 ANION GAP 12 06/11/2016 Comp Metabolic Nsz539 NA 127 mEq/L 06/05/2016 Comp Metabolic Uxp000 K 4.0 mEq/L 06/05/2016 Comp Metabolic Sdb752 CL 94 mEq/L 06/05/2016 Comp Metabolic Msl731 CO2 26.0 mEq/L 06/05/2016 Comp Metabolic Gmu124 ANION GAP 11 06/05/2016 Comp Metabolic Acu123 GLUCOSE 101 mg/dL 06/05/2016 Comp Metabolic Gve132 Creat 0.7 mg/dL 06/05/2016 Comp Metabolic Lau948 eGFR 80 ml/min/1.73m2 06/05/2016 Comp Metabolic Gbn149 BUN 15 mg/dL 06/05/2016 Comp Metabolic Srx788 B/C Ratio 20.5 Ratio 06/05/2016 Comp Metabolic Vsn935 CALCIUM 9.2 mg/dL 06/05/2016 Comp Metabolic Vda275 ALK PHOS 43 U/L 06/05/2016 Comp Metabolic Cmu955 AST(SGOT) 32 U/L 06/05/2016 Comp Metabolic Olc968 ALT(SGPT) 43 U/L 06/05/2016 Comp Metabolic Dvo280 BILI T 0.4 mg/dL 06/05/2016 Comp Metabolic Osi650 ALBUMIN 4.3 g/dL 06/05/2016 Comp Metabolic Xrm877 TPRO 6.2 g/dL 06/05/2016 Comp Metabolic Vkf164 GLOB 2.0 g/dL 06/05/2016 Comp Metabolic Opj757 A/G Ratio 2.2 Ratio 06/05/2016 Comp Metabolic Rak840 Osmo 256 mOsmo 06/05/2016 Cbc With Differential [...] 34.8 pg 06/05/2016 Cbc With Differential Ord2 [place]% 11.1 % 06/05/2016 Cbc With Differential Ord2 MCHC 36.0 pg 06/05/2016 Cbc With Differential Ord2 Eos% 0.5 % 06/05/2016 Cbc With Differential Ord2 Baso% 0.4 % 06/05/2016 Cbc With Differential Ord2 PLT 283 K/ul 06/05/2016 Cbc With Differential Ord2 Neut ABS# 5.66 K/ul 06/05/2016 Cbc With Differential Ord2 RDW 13.9 % 06/05/2016 Cbc With Differential Ord2 Lymph ABS# 1.03 K/ul 06/05/2016 Cbc With Differential Ord2 [place] ABS# 0.8 K/ul 06/05/2016 Cbc With Differential Ord2 Eos ABS# 0.0 K/ul 06/05/2016 Cbc With Differential Ord2 Baso ABS# 0.0 K/ul 06/05/2016 Culture Urine [id number] URINE CULTURE SEE NOTES 06/01/2016 Culture Urine [id number] Continued Results 06/01/2016 Urine Culture Ucult Complete [...] Codes Date URINALYSIS NONAUTO W/O SCOPE CPT-4: 24474 04/01/2017 URINALYSIS NONAUTO W/O SCOPE CPT-4: 08871 03/05/2017 FLU VACC PRSV FREE INC ANTIG CPT-4: 64547 12/18/2016 ADMIN INFLUENZA VIRUS VAC CPT-4: G0008 12/18/2016 URINALYSIS NONAUTO W/O SCOPE CPT-4: 71448 11/26/2016 URINALYSIS NONAUTO W/O SCOPE CPT-4: 03384 11/06/2016 URINALYSIS NONAUTO W/O SCOPE CPT-4: 38443 10/16/2016 TRIAMCINOLONE ACET INJ NOS CPT-4: J3301 10/08/2016 URINALYSIS NONAUTO W/O SCOPE CPT-4: 91600 09/03/2016 URINALYSIS NONAUTO W/O SCOPE CPT-4: 66826 08/24/2016 URINALYSIS NONAUTO W/O SCOPE CPT-4: 26329 08/06/2016 THER/PROPH/DIAG INJ SC/IM CPT-4: 27606 07/14/2016 VITAMIN B12 INJECTION CPT-4: J3420 07/14/2016 URINALYSIS NONAUTO W/O SCOPE CPT-4: 64828 07/03/2016 THER/PROPH/DIAG INJ SC/IM CPT-4: 87576 06/26/2016 ROCEPHIN, PER 250 MG CPT-4: J0696 06/26/2016 URINALYSIS NONAUTO W/O SCOPE CPT-4: 41807 06/23/2016 URINALYSIS NONAUTO W/O SCOPE CPT-4: 04749 06/11/2016 URINALYSIS NONAUTO W/O SCOPE CPT-4: 74091 05/28/2016 THER/PROPH/DIAG INJ SC/IM CPT-4: 46089 05/28/2016 ROCEPHIN, PER 250 MG CPT-4: J0696 05/28/2016 REMOVAL OF IMPACTED WAX CPT-4: G0268 05/06/2016 Vital Signs Date Vital 03/19/2017 Blood Pressure 1: 144/76 Code : 8480-6 BMI: 26.3 Code : 01663-0 Heart Rate 1 : 102 bpm Height: 5'4" SpO2: 98% Temperature: 36.8 (C) / 98.3 (F) Weight: 153 lbs 03/08/2017 Blood Pressure 1: 136/80 Code : 8480-6 BMI: 26.9 Code : 32425-5 Heart Rate 1 : 76 bpm Height: 5'4" SpO2: 96% Weight: 157 lbs 02/02/2017 Blood Pressure 1: 148/68 Code : 8480-6 BMI: 26.9 Code : 39498-4 Heart Rate 1 : 76 bpm Height: 5'4" SpO2: 97% Weight: 157 lbs 01/15/2017 Blood Pressure 1: 142/76 Code : 8480-6 BMI: 26.9 Code : 39444-6 Heart Rate 1 : 86 bpm Height: 5'4" SpO2: 97% Weight: 157 lbs 12/30/2016 Blood Pressure 1: 140/76 Code : 8480-6 BMI: 26.9 Code : 64590-6 Heart Rate 1 : 84 bpm Height: 5'4" SpO2: 97% Weight: 157 lbs 12/22/2016 Blood Pressure 1: 130/78 Code : 8480-6 BMI: 26.9 Code : 98931-4 Heart Rate 1 : 80 bpm Height: 5'4" SpO2: 97% Weight: 157 lbs 12/18/2016 BMI: 26.9 Code: 37027-1 Height: 5'4" Weight: 157 lbs 11/20/2016 Blood Pressure 1: 134/60 Code : 8480-6 BMI: 25.9 Code : 21699-1 Heart Rate 1 : 80 bpm Height: 5'4" SpO2: 97% Weight: 151 lbs 11/16/2016 BMI: 25.6 Code: 82234-3 Heart Rate 1: 74 bpm Height: 5'4" SpO2: 97% Weight: 149 lbs 10/28/2016 Blood Pressure 1: 128/70 Code : 8480-6 BMI: 25.7 Code : 52668-9 Heart Rate 1 : 70 bpm Height: 5'4" SpO2: 96% Weight: 150 lbs 10/13/2016 Blood Pressure 1: 130/78 Code : 8480-6 Heart Rate 1: 69 bpm Height: 5'4" SpO2: 98% 10/08/2016 Blood Pressure 1: 122/70 Code : 8480-6 BMI: 25.6 Code : 44838-2 Heart Rate 1 : 79 bpm Height: 5'4" SpO2: 97% Temperature: 37.0 (C) / 98.6 (F) Weight: 149 lbs 09/29/2016 Blood Pressure 1: 124/70 Code : 8480-6 BMI: 25.4 Code : 57545-7 Heart Rate 1 : 74 bpm Height: 5'4" SpO2: 94% Weight: 148 lbs 09/03/2016 Blood Pressure 1: 120/68 Code : 8480-6 BMI: 24.7 Code : 66428-5 Heart Rate 1 : 59 bpm Height: 5'4" SpO2: 97% Weight: 144 lbs 08/24/2016 Blood Pressure 1: 128/74 Code : 8480-6 BMI: 24.7 Code : 46528-7 Heart Rate 1 : 75 bpm Height: 5'4" SpO2: 97% Weight: 144 lbs 08/11/2016 Blood Pressure 1: 142/76 Code : 8480-6 BMI: 24.9 Code : 40901-1 Heart Rate 1 : 77 bpm Height: 5'4" SpO2: 96% Weight: 145 lbs 08/03/2016 Blood Pressure 1: 142/78 Code : 8480-6 BMI: 25.1 Code : 52247-3 Heart Rate 1 : 75 bpm Height: 5'4" SpO2: 97% Temperature: 36.9 (C) / 98.5 (F) Weight: 146 lbs 07/27/2016 Blood Pressure 1: 158/80 Code : 8480-6 BMI: 25.1 Code : 27085-3 Heart Rate 1 : 72 bpm Height: 5'4" SpO2: 98% Weight: 146 lbs 07/21/2016 Blood Pressure 1: 144/76 Code : 8480-6 BMI: 25.1 Code : 01168-5 Heart Rate 1 : 80 bpm Height: 5'4" SpO2: 94% Temperature: 37.3 (C) / 99.2 (F) Weight: 146 lbs 07/14/2016 Blood Pressure 1: 128/74 Code : 8480-6 BMI: 25.1 Code : 94916-6 Heart Rate 1 : 79 bpm Height: 5'4" SpO2: 97% Temperature: 37.2 (C) / 98.9 (F) Weight: 146 lbs 8 oz 07/10/2016 Blood Pressure 1: 148/78 Code : 8480-6 BMI: 25.1 Code : 19934-2 Heart Rate 1 : 82 bpm Height: 5'4" SpO2: 96% Temperature: 37.2 (C) / 99.0 (F) Weight: 146 lbs 8 oz 07/03/2016 Blood Pressure 1: 134/76 Code : 8480-6 Heart Rate 1: 79 bpm Height: 5'4" SpO2: 98% Temperature: 36.9 (C) / 98.4 (F) 06/30/2016 Blood Pressure 1: 138/78 Code : 8480-6 BMI: 25.1 Code : 34961-4 Heart Rate 1 : 90 bpm Height: 5'4" SpO2: 97% Weight: 146 lbs 06/23/2016 Blood Pressure 1: 132/58 Code : 8480-6 BMI: 25.7 Code : 81724-9 Heart Rate 1 : 85 bpm Height: 5'4" SpO2: 97% Weight: 150 lbs 06/15/2016 Blood Pressure 1: 134/62 Code : 8480-6 BMI: 26.4 Code : 72779-9 Heart Rate 1 : 75 bpm Height: 5'4" SpO2: 95% Weight: 154 lbs 06/05/2016 Blood Pressure 1: 156/80 Code : 8480-6 BMI: 26.4 Code : 25205-8 Heart Rate 1 : 92 bpm Height: 5'4" SpO2: 98% Weight: 154 lbs 06/01/2016 Blood Pressure 1: 135/80 Code : 8480-6 Heart Rate 1: 95 bpm SpO2: 97% Temperature: 37.1 (C) / 98.8 (F) 05/28/2016 Blood Pressure 1: 140/80 Code : 8480-6 BMI: 26.1 Code : 61144-1 Heart Rate 1 : 89 bpm Height: 5'4" SpO2: 96% Weight: 152 lbs 05/11/2016 Blood Pressure 1: 154/86 Code : 8480-6 Heart Rate 1: 89 bpm Height: 5'4" SpO2: 95% Weight: 04/30/2016 Blood Pressure 1: 142/72 Code : 8480-6 BMI: 26.3 Code : 83061-2 Heart Rate 1 : 87 bpm Height: [...] data Encounters Encounter Performer Location Codes Date EST. PATIENT, LEVEL III Diagnosis: Dysuria[ICD10: R30.0] Diagnosis: Other malaise[ICD10: R53.81] Diagnosis: Other fatigue[ICD10: R53.83] Diagnosis: Generalized anxiety disorder[ICD10: F41.1] Meli Amador MD, [facility] CPT-4: 75964 03/19/2017 [id number] EST. PATIENT, LEVEL III Diagnosis: Left lower quadrant pain[ICD10: R10.32] Meli Amador MD, [facility] CPT-4: 38245 03/08/2017 [id number] EST. PATIENT, LEVEL III Diagnosis: Dysuria[ICD10: R30.0] Diagnosis: Generalized anxiety disorder[ICD10: F41.1] Meli Amador MD, [facility] CPT-4: 24685 02/02/2017 [id number] EST. PATIENT, LEVEL III Diagnosis: Generalized anxiety disorder[ICD10: F41.1] Diagnosis: Urinary tract infection, site not specified[ICD10: N39.0] Meli Amador MD, [facility] CPT-4: 71335 01/15/2017 [id number] EST. PATIENT, LEVEL IV Diagnosis: Dysuria[ICD10: R30.0] Diagnosis: Rash and other nonspecific skin eruption[ICD10: R21] Meli Amador MD, [facility] CPT-4: 83233 12/30/2016 95972 EST. PATIENT, LEVEL IV Diagnosis: Localized edema[ICD10: R60.0] Diagnosis: Pain in left lower leg[ICD10: M79.662] Diagnosis: Dysuria[ICD10: R30.0] Meli Amador MD, [facility] CPT-4: 18648 12/22/2016 43860 EST. PATIENT, LEVEL IV Diagnosis: 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[ICD10: I83.92] Diagnosis: Urinary tract infection, site not specified[ICD10: N39.0] Diagnosis: Encounter for immunization[ICD10: Z23] Meli Amador MD, [facility] CPT-4: 83950 12/18/2016 ([id number]) 86597 EST. PATIENT, LEVEL III Diagnosis: 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[ICD10: I83.92] Diagnosis: Urinary tract infection, site not specified[ICD10: N39.0] Josiane Amador MD , [facility] CPT-4: 55168 11/20/2016 07649 EST. PATIENT, LEVEL III Diagnosis: Dysuria[ICD10: R30.0] Meli Amador MD, [facility] CPT-4: 67714 11/16/2016 ([id number]) 47181 EST. PATIENT, LEVEL III Diagnosis: Generalized anxiety disorder[ICD10: F41.1] Diagnosis: Urinary tract infection, site not specified[ICD10: N39.0] Mera Amador MD, [facility] CPT-4: 68421 10/28/2016 ([id number]) 64282 EST. 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 PATIENT, LEVEL III Diagnosis: Dysuria[ICD10: R30.0] Diagnosis: Essential (primary) hypertension[ICD10: I10] Mera Amador MD, [facility] CPT-4: 01878 09/29/2016 ([id number]) 96190 EST. PATIENT, LEVEL III Diagnosis: Generalized anxiety disorder[ICD10: F41.1] Diagnosis: Dysuria[ICD10: R30.0] Diagnosis: Personal history of urinary (tract) infections[ICD10: Z87.440] Mera Amador MD, [facility] CPT-4: 66795 09/03/2016 ([id number]) 78381 EST. PATIENT, LEVEL IV Diagnosis: Essential (primary) hypertension[ICD10: I10] Diagnosis: Generalized anxiety disorder[ICD10: F41.1] Diagnosis: Dysuria[ICD10: R30.0] Mera Amador MD, [facility] CPT-4: 28852 08/24/2016 29651 EST. PATIENT, LEVEL IV Diagnosis: Hypo-osmolality and hyponatremia[ICD10: E87.1] Diagnosis: Generalized anxiety disorder[ICD10: F41.1] Diagnosis: Pelvic and perineal pain[ICD10: R10.2] Diagnosis: Candidal stomatitis[ICD10: B37.0] Meli Amador MD, [facility] CPT -4: 29185 08/11/2016 ([id number]) 90148 EST. PATIENT, LEVEL III Diagnosis: Generalized anxiety disorder[ICD10: F41.1] Diagnosis: Pelvic and perineal pain[ICD10: R10.2] Josiane Amador MD, [facility] CPT-4: 51125 08/03/2016 20691 EST. PATIENT, LEVEL IV Diagnosis: Generalized anxiety disorder[ICD10: F41.1] Diagnosis: Pelvic and perineal pain[ICD10: R10.2] Diagnosis: Gastro-esophageal reflux disease without esophagitis[ICD10: K21.9] Meli Amador MD, [facility] CPT-4: 69235 07/27/2016 ([id number]) 23677 EST. PATIENT, LEVEL III Diagnosis: Urinary tract infection, site not specified[ICD10: N39.0] Diagnosis: Gastro-esophageal reflux disease without esophagitis[ICD10: K21.9] Diagnosis: Generalized anxiety disorder[ICD10: F41.1] Josiane Amador MD, [facility] CPT-4: 88500 07/21/2016 ([id number]) 98892 EST. PATIENT, LEVEL III Diagnosis: Generalized anxiety disorder[ICD10: F41.1] Diagnosis: Essential (primary) hypertension[ICD10: I10] Diagnosis: Vitamin B12 deficiency anemia, unspecified[ICD10: D51.9] Josiane Amador MD , [facility] CPT-4: 51989 07/14/2016 ([id number]) 14716 EST. 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 PATIENT, LEVEL III Diagnosis: Urinary tract infection, site not specified[ICD10: N39.0] Diagnosis: Hypo-osmolality and hyponatremia[ICD10: E87.1] Josiane Amador MD, [facility] CPT-4: 74316 07/03/2016 84847 EST. PATIENT, LEVEL IV Diagnosis: Generalized anxiety disorder[ICD10: F41.1] Diagnosis: Major depressive disorder, recurrent, mild[ICD10: F33.0] Diagnosis: Hypo-osmolality and hyponatremia[ICD10: E87.1] Meli Amador MD, [facility] CPT-4: 92607 06/30/2016 ([id number]) 66462 EST. PATIENT, LEVEL III Diagnosis: Hypo-osmolality and hyponatremia[ICD10: E87.1] Diagnosis: Dysuria[ICD10: R30.0] Diagnosis: Essential (primary) hypertension[ICD10: I10] Mera Amador MD, [facility] CPT-4: 68211 06/23/2016 47439 EST. PATIENT, LEVEL III Diagnosis: Candidal stomatitis[ICD10: B37.0] Diagnosis: Gastro-esophageal reflux disease without esophagitis[ICD10: K21.9] Diagnosis: Hypo-osmolality and hyponatremia[ICD10: E87.1] Meli Amador MD, [facility] CPT-4: 95379 06/15/2016 [id number]) 93996 EST. PATIENT, LEVEL III Diagnosis: Essential (primary) hypertension[ICD10: I10] Diagnosis: Hypo-osmolality and hyponatremia[ICD10: E87.1] Diagnosis: Urinary tract infection, site not specified[ICD10: N39.0] Josiane Amador MD , [facility] CPT-4: 22193 06/05/2016 ([id number]) 76723 EST. PATIENT, LEVEL III Diagnosis: Urinary tract infection, site not specified[ICD10: N39.0] Josiane Amador MD , [facility] CPT-4: 43394 06/01/2016 ([id number]) 44615 EST. 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 PATIENT, LEVEL III Diagnosis: Pain in left toe(s)[ICD10: M79.675] Diagnosis: Tinea unguium[ICD10: B35.1] Josiane Amador MD, [facility] CPT-4: 08423 05/11/2016 ([id number]) OFFICE VISIT, NEW - LEVEL 4 Diagnosis: Essential (primary) hypertension[ICD10: I10] Diagnosis: Hypo-osmolality and hyponatremia[ICD10: E87.1] Mera Amador MD, [facility] CPT-4: 71220 04/30/2016 Plan of Care Planned Activity Notes Codes Status Date Appointment: [phone] [place] (30 min) Complex 05/10/2017 Appointment: [phone] [place] (30 min) Complex 04/30/2017 Appointment: Lab Draw 04/29/2017 Appointment: Meli Mlaonetel: [facility] (30 min) Complex 04/29/2017 Appointment: Meli Malone WPtel: [facility] (30 min) Complex 04/23/2017 Appointment: Lab Draw [...] current medications. 03/19/2017 Appointment: Meli Malone WPtel: [facility]5 [facility] (30 min) Complex 03/19/2017 Patient Education: Patient [...] or concerns. 03/08/2017 Appointment: Meli Malone WPtel: [facility] (30 min) Complex 03/08/2017 Patient Education: Patient [...] current medications. 02/02/2017 Appointment: Meli Malone WPtel: [facility] (30 min) Complex 02/02/2017 Patient Education: Patient [...] warmth, discharge. 12/30/2016 Appointment: Meli Malone WPtel: [facility] (30 min) Complex 12/30/2016 Patient Education: Patient [...] repeat UA today, infectious disease clinic in [place] is reviewing her case to make her an appointment, no other changes at this time. 12/22/2016 Appointment: Meli Malone WPtel: [facility] [place] (15 min) Moderate 12/22/2016 Patient Education: Patient Medication Summary Completed 12/22/2016 Care Plan: VASCULAR STUDY Pending 12/22/2016 Care Plan: Referral Order SNOMED-CT : [id number] Pending 12/20/2016 Visit Plan: Varicose veins - [...] like to be referred to someone in [place] instead of at - will look into referral to specialist in [place]. 12/18/2016 Appointment: Meli Malone WPtel: [facility]5 [facility] [place] (15 min) Moderate 12/18/2016 Patient Education: Patient Medication Summary Completed 12/18/2016 Appointment: Lab Draw 12/04/2016 Appointment: Meli Malone WPtel: [address] [place], [place] [phone] [place] (30 min) Complex 11/27/2016 Visit Plan: UA negative - pt was feeling better on the diflucan - will refill RX x 1 - pt has an appointment with Urogynecology on . 11/26/2016 Appointment: Lab Draw 11/26/2016 Patient Education: Patient Medication Summary Completed 11/26/2016 Visit Plan: Varicose veins-recommend compression stockings- monitor symptoms and call if uncontrolled UTI-culture urine 11/20/2016 Appointment: Josiane Berry WPtel: [facility]5 [phone] [place] (30 min) Complex 11/20/2016 Patient Education: [...] or concerns. 11/16/2016 Appointment: Meli Malone WPtel: [facility]5 [facility] [place] (15 min) Moderate 11/16/2016 Patient Education: [...] not improved. 10/28/2016 [facility]ment[phone] [place] ([facility]) Moderate 10/28/2016 Patient Education: Patient Medication Summary Completed 10/28/2016 Appointment: Lab Draw 10/16/2016 Patient Education: Patient Medication Summary Completed 10/16/2016 Visit Plan: Allergies-continue claritin-add flonase as directed UTI-UA negative-symptoms resolved Ozwzi-bxhlpyoy-fanhfai with upset stomach and feels more anxious/jittery-likely due to prednisone-stay off prednisone and call if symptoms do not resolve. Patient and caregiver verbalized understanding of plan. 10/13/2016 Visit Plan: Allergies-continue claritin-add flonase as directed UTI-UA negative-symptoms resolved Rnlcl-kpkrcpdg-zpcqdah with upset stomach and feels more anxious/jittery-likely due to prednisone-stay off prednisone and call if symptoms do not resolve. Patient and caregiver verbalized understanding of plan. 10/13/2016 Appointment: [phone] [place] (15 min) Moderate 10/13/2016 Patient Education: Patient Medication Summary Completed 10/13/2016 Visit Plan: Allergic reaction-suspect due to cefdinir- kenalog injection today in the office-start prednisone tomorrow-start oral anti histamine such as claritin or zyrtec as directed-call if symptoms do not resolve , ER if any worse. Patient and friend verbalized understanding of plan. 10/08/2016 Appointment: Josiane Berry WPtel: [phone] [phone] (30 min) Complex 10/08/2016 Patient Education: Patient [...] in November. 09/29/2016 Appointment: Mera Amador WPtel: [phone] [facility] (15 min) Moderate 09/29/2016 Patient Education: Patient Medication Summary Completed 09/29/2016 Appointment: Mera Amador WPtel: [facility]1 [facility] (15 min) Moderate 09/23/2016 Appointment: Lab Draw 09/09/2016 Visit Plan: Anxiety - uncontrolled - restart the LEXAPRO 5mg at bedtime. Recurrent urinary tract infection - start on the PREVENTATIVE antibiotic trimethoprim 100mg daily. 09/03/2016 Appointment: Mera Amador WPtel: [facility]8 [facility] (15 min) Moderate 09/03/2016 Patient Education: Patient [...] above medications. 08/24/2016 Appointment: Mera Amador WPtel: [phone] [facility] [place] (15 min) Moderate 08/24/2016 Patient Education: [...] or concerns. 08/11/2016 Appointment: Meli Malone WPtel: [phone] [facility] [place] (30 min) Complex 08/11/2016 Patient Education: Patient Medication Summary Completed 08/11/2016 Appointment: Lab Draw 08/06/2016 Patient Education: Patient Medication Summary Completed 08/06/2016 Appointment: Josiane Berry WPtel: [phone] [phone] [place] (15 min) Moderate 08/04/2016 Visit Plan: Anxiety-continue lexapro-xanax prn-no changes in medications today Pelvic pain-UA negative-patient to see Dr Abraham for [employer] evaluation 08/03/2016 Appointment: Josiane Berry WPtel: [phone] [phone] [place] (10 min) Simple 08/03/2016 Patient Education: [...] treatment with the above medications. 07/27/2016 Appointment: Mlei Malone: [facility] (15 min) Moderate 07/27/2016 Patient Education: Patient [...] f/u with Dr Hughes 07/21/2016 Appointment: Josiane Berryl: [facility]8 [place] [phone] (15 min) Moderate 07/21/2016 Patient Education: Patient [...] HTN-no change in medications 07/14/2016 Appointment: Josiane Berry: [facility]8 [phone] (30 min) Complex 07/14/2016 Patient Education: Patient [...] office Low sodium-check labs 07/10/2016 Appointment: Josiane Berryl: [facility]5 [phone] (15 min) Moderate 07/10/2016 Patient Education: Patient Medication Summary Completed 07/10/2016 Visit Plan: UTI-finish cefuroxime-then start preventative abx-recheck UA in 1 week Low sodium-check labs today Depression-start the lexapro as directed 07/03/2016 Appointment: Josiane Berry WPtel: [facility]5 [phone] (15 min) Moderate 07/03/2016 Patient Education: Patient [...] this patient. 06/30/2016 Appointment: Meli Malone WPtel: [phone] (30 min) Complex 06/30/2016 Patient Education: Patient Medication Summary Completed 06/30/2016 Appointment: [facility] 06/26/2016 Patient Education: Patient Medication Summary Completed [...] labs serially 06/23/2016 Appointment: Mera Amador WPtel: [facility]4 [facility] (15 min) Moderate 06/23/2016 Patient Education: Patient [...] monitor labs. 06/15/2016 Appointment: Meli Malone WPtel: [facility]5 [id number] (10 min) Simple 06/15/2016 Patient Education: Patient Medication Summary Completed 06/15/2016 Appointment: Lab Draw 06/11/2016 Patient Education: Patient Medication Summary Completed 06/11/2016 Patient Education: Patient Medication Summary Completed 06/11/2016 Visit Plan: HTN-slightly elevated today-no change in treatment Low sodium-check labs today-increase gatorade if needed UTI-finish cipro Anxiety-xanax RX provided and instructed on use-will use for a short time 06/05/2016 Appointment: Josiane Berry WPtel: [facility]7 [place] [phone] (15 min) Moderate 06/05/2016 Patient Education: Patient Medication Summary Completed 06/05/2016 Visit Plan: UTI-persistent symptoms-stop cefdinir start cipro as directed-repeat UA upon completion of abx-continue estrace cream as directed-keep appt with Dr Hughes 06/01/2016 Appointment: Josiane Berry WPtel: [facility]1 [phone] (15 min) Moderate 06/01/2016 Patient Education: Patient [...] times daily. 05/28/2016 Appointment: [phone] (15 min) Moderate 05/28/2016 Patient Education: Patient Medication Summary Completed 05/28/2016 Visit Plan: Left great toe pain-with fungal infection of nail-- large nail nippers and dremmel used to trim dystrophic, thickened, elongated toenail left great toe-patient verbalized relief from pain. Instructed patient to call if symptoms return or other concerns. 05/11/2016 Appointment: [phone] (15 min) Moderate 05/11/2016 Patient Education: Patient [...] monitor symptoms. 04/30/2016 Appointment: [facility]era [facility]: [phone] [place] New Patient 04/30/2016 Patient Education: Patient Medication Summary Completed 04/30/2016 Referral: External, Ordering Provider Referral Initiated Instructions Comment Once the medrol dose pack is finished [...] if her symptoms were not improved. . Dysuria - resolved - defer to [...] has been appropriately prescribed for this patient. RESTSART OMEPRAZOLE KEEP APPOINTMENT WITH DR HUGHES [...] claritin-add flonase as directed UTI-UA negative-symptoms resolved Emwuh-whxrtwbg-lmigbix with upset stomach and feels more anxious/jittery-likely due to prednisone-stay off prednisone and call if symptoms do not resolve. Patient and caregiver verbalized understanding of plan. . Allergies-continue claritin-add flonase as directed UTI-UA negative-symptoms resolved Ignyg-cxzljkbo-xqjoxby with upset stomach and feels more anxious/jittery-likely [...] or with any questions or concerns. . Dysuria - ongoing - UA negative - pt is to finish her abx as directed - will send RX, pt is to follow up with Dr. Hughes. Pt is to notify clinic if symptoms do not improve, if they worsen, or with any questions or concerns. Continue cefuroxime as prescribed. Fluconazole is done [...] benefits of treatment with the above medications. STOP THE ESTRACE CREAM AND THE KEFLEX [...] in the office HTN-no change in medications Try G2 if the gatorade is too [...] call if symptoms return or other concerns. . Hypertension - well controlled - continue [...] Patient and friend verbalized understanding of plan. Thigh high compression stockings. . Varicose veins [...] like to be referred to someone in [place] instead of at - will look into referral to specialist in [place]. . UA negative - pt was feeling better on the diflucan - will refill RX x 1 - pt has an appointment with Urogynecology on 12/16. FINISH ANTIBIOTIC-START PREVENTATIVE ANTIBIOTIC AFTER YOU FINISH THE CEFUROXIME CALL WEDNESDAY WITH UPDATE . UTI-finish cefuroxime-then start preventative abx-recheck UA in 1 week Low sodium-check labs today Depression-start the lexapro as directed . Anxiety-continue lexapro-xanax prn-no changes in medications today Pelvic pain-UA negative-patient to see Dr Abraham for [employer] evaluation . Anxiety - uncontrolled - restart [...] on use-will use for a short time August AT 1:[address] ABRAHAM . [...] repeat UA today, infectious disease clinic in [place] is reviewing her case to make her [...] with any other changes, questions, or concerns. START THE LEXAPRO WET PREP-WE [...] situational exposure. No change in current medications. . UTI - pt with positive urinalysis [...] increase in pain, worsening redness, warmth, discharge. stop cefdinir continue flagyl start cipro 500mg twice daily call in 1 week with update on symptoms . UTI-persistent symptoms-stop cefdinir start cipro as directed-repeat UA upon completion of abx-continue estrace cream as directed-keep appt with Dr Hughes
--- OUTSIDE RECORDS SUMMARY | 2017-07-04 04:13 | XMS REPORT | CCD ---
Author Author Mera Amador Organization Mera Amador MD, [facility] Address [address] [place] [address] Phone Care Team Providers Care Senior Security Analyst Name Role Phone PP Unavailable CCM Unavailable Summary Purpose Interface Exchange Insurance Providers Payer name Policy type / Coverage type Covered green party ID Effective Begin Date Effective End Date WPS Medicare Part B Medicare Part B [id number] Unknown Unknown AARP Medicare Part B [id number] Unknown Unknown Family History Family History data not found Social History Social History Element Codes Description Effective Dates Marital status Unknown 04/30/[address]: 518659887 Never smoker 04/30/[address]: 996736924 Never drinks alcohol 04/30/2016 Allergies, Adverse Reactions, Alerts Substance Reaction Codes Entered Date Inactivated Date Status cephalexin rash RxNorm: 2231 10/28/2016 No Inactive Date Active ultram pruritis RxNorm: 54769 08/24/2016 No Inactive Date Active Past Medical History Illness Codes Condition Status Onset Date Resolved Date Dysuria ICD-9: 788.1 ICD-10: R30.0 Active 06/11/2016 Unknown Acute laryngopharyngitis ICD-9: 465.0 ICD-10: J06.0 Active 04/23/2017 Unknown Other allergic rhinitis ICD-9: 477.8 ICD-10: J30.89 Active 04/23/2017 Unknown Slow transit constipation ICD-9: 564.01 ICD-10: K59.01 Active 04/23/2017 Unknown Generalized anxiety disorder ICD-9: 300.02 ICD-10: [...] 06/15/2016 Unknown Pelvic and perineal pain ICD-9: [id number] ICD-10: R10.2 Active 08/03/2016 Unknown Vitamin B12 [...] Dysuria ICD-9: 788.1 ICD-10: R30.0 06/11/2016 Active Acute laryngopharyngitis ICD-9: 465.0 ICD-10: J06.0 04/23/2017 Active Other allergic rhinitis ICD-9: 477.8 ICD-10: J30.89 04/23/2017 Active Slow transit constipation ICD-9: 564.01 ICD-10: K59.01 04/23/2017 Active Generalized anxiety disorder ICD-9: 300.02 ICD-10: [...] 06/15/2016 Active Pelvic and perineal pain ICD-9: [id number] ICD-10: R10.2 08/03/2016 Active Vitamin B12 deficiency [...] Instructions Augmentin 500 mg-125 mg tablet RxNorm: 651867 1 Tablet(s) PO TID 05/11/2017 05/17/2017 Active Xanax 0.25 mg tablet RxNorm: 204198 1/2-1 Tablet(s) PO TID as needed 05/07/2017 07/05/2017 Active omeprazole 40 mg capsule,delayed release RxNorm: 350084 TAKE ONE CAPSULE BY MOUTH ONCE DAILY 05/06/2017 No Stop Date Active prednisone 10 mg tablet RxNorm: 885214 Tablet(s) PO UD 2017 No Stop Date Active 20,20,10,10 Tessalon Perles 100 mg capsule RxNorm: 915441 1-2 Capsule(s) PO TID as needed cough 04/23/2017 No Stop Date Active prednisone 10 mg tablet RxNorm: 997506 Tablet(s) PO 04/23/2017 No Stop Date Active 6, 5,4,3,2,1 doxycycline hyclate 100 mg capsule RxNorm: 3614704 1 Capsule(s) PO BID 04/23/2017 05/02/2017 Inactive Kenalog 40 mg/mL suspension for injection RxNorm: 5739072 1 Milliliter(s) Inj 04/23/2017 04/23/2017 Inactive Cipro 500 mg tablet RxNorm: 412811 1 Tablet(s) PO BID 201704/16/2017 Inactive Cipro 500 mg tablet RxNorm: 888263 1 Tablet(s) PO BID 201603/25/2017 Inactive hydrocodone 5 mg-acetaminophen 325 mg tablet RxNorm: 848587 1 Tablet(s) PO Q6 as needed 03/05/2017 03/19/2017 Inactive Diflucan 150 mg tablet RxNorm: 378730 1 Tablet(s) PO daily 03/05/2017 Inactive Diflucan 150 mg tablet RxNorm: 767454 1 Tablet(s) PO daily 02/28/2017 Inactive Seasonique 0.15 mg-30 mcg (84)/10 mcg(7) tablets,3 month dose pack RxNorm: 842313 1 Tablet(s) PO UD 02/24/2017 02/24/2017 Inactive losartan 50 mg tablet RxNorm: 830298 TAKE ONE TABLET BY MOUTH ONCE DAILY IN THE MORNING 02/23/2017 No Stop Date Active Diflucan 150 mg tablet RxNorm: 466432 1 Tablet(s) PO daily 09/201602/14/2017 Inactive Cipro 500 mg tablet RxNorm: 117073 1 Tablet(s) PO BID 201601/21/2017 Inactive Augmentin 500 mg-125 mg tablet RxNorm: 914762 1 Tablet(s) PO TID 12/30/2016 12/29/2016 Inactive Augmentin 500 mg-125 mg tablet RxNorm: 256862 1 Tablet(s) PO TID 12/30/2016 01/05/2017 Inactive hydrocodone 5 mg-acetaminophen 325 mg tablet RxNorm: 249758 1 Tablet(s) PO Q6 as needed 12/24/2016 01/07/2017 Inactive omeprazole 40 mg capsule,delayed release RxNorm: 605218 TAKE ONE CAPSULE BY MOUTH ONCE DAILY 12/08/2016 04/06/2017 Inactive Diflucan 150 mg tablet RxNorm: 506196 1 Tablet(s) PO daily 12/02/2016 Inactive Xanax 0.25 mg tablet RxNorm: 461949 1/2-1 Tablet(s) PO TID as needed 11/24/2016 01/20/2017 Inactive Xanax 0.25 mg tablet RxNorm: 070984 1/2-1 Tablet(s) PO TID as needed 11/24/2016 01/22/2017 Inactive sucralfate 1 gram tablet RxNorm: 066755 TAKE ONE TABLET BY MOUTH BEFORE MEALS AND AT BEDTIME 11/20/2016 12/19/2016 Inactive Diflucan 150 mg tablet RxNorm: 093846 1 Tablet(s) PO daily 11/22/2016 Inactive Levaquin 500 mg tablet RxNorm: 676525 1 Tablet(s) PO daily 10/201611/08/2016 Inactive Levaquin 500 mg tablet RxNorm: 966062 1 Tablet(s) PO daily 10/201611/15/2016 Inactive losartan 50 mg tablet RxNorm: 708154 1 Tablet(s) PO QAM 201602/22/2017 Inactive hydrocodone 5 mg-acetaminophen 325 mg tablet RxNorm: 127038 1 Tablet(s) PO Q6 as needed 10/26/2016 11/09/2016 Inactive Kenalog 40 mg/mL suspension for injection RxNorm: 8325552 1 Milliliter(s) Inj 10/08/2016 10/08/2016 Inactive prednisone 5 mg tablets in a dose pack RxNorm: 221967 1 Tablet(s) PO UD 10/08/2016 10/12/2016 Inactive 6-5-4-3-2-1 Diflucan 150 mg tablet RxNorm: 592428 1 Tablet(s) PO daily 06/201610/04/2016 Inactive Diflucan 150 mg tablet RxNorm: 573236 1 Tablet(s) PO daily 06/201610/09/2016 Inactive Lexapro 10 mg tablet RxNorm: 334220 1 Tablet(s) PO QHS 201601/26/2017 Inactive cefdinir 300 mg capsule RxNorm: 772430 1 Capsule(s) PO BID 10/07/2016 Inactive Lexapro 5 mg tablet RxNorm: 504334 1 Tablet(s) PO QHS 201609/28/2016 Inactive trimethoprim 100 mg tablet RxNorm: 753801 1 Tablet(s) PO daily 09/03/2016 03/01/2017 Inactive hydrocodone 5 mg-acetaminophen 325 mg tablet RxNorm: 735883 1 Tablet(s) PO Q6 as needed 08/28/2016 09/11/2016 Inactive Diflucan 150 mg tablet RxNorm: 150384 1 Tablet(s) PO QW as needed symptoms of thrush 08/26/2016 09/28/2016 Inactive Xanax 0.25 mg tablet RxNorm: 638349 1/2-1 Tablet(s) PO TID as needed 08/24/2016 10/20/2016 Inactive tramadol 50 mg tablet RxNorm: 938315 1-2 Tablet(s) PO Q6 as needed for pain 08/14/2016 09/28/2016 Inactive amoxicillin 500 mg capsule RxNorm: 192442 1 Capsule(s) PO TID 08/11/2016 08/20/2016 Inactive nystatin 100,000 unit/mL oral suspension RxNorm: 499092 5 Milliliter(s) PO QID 08/11/2016 08/17/2016 Inactive cefdinir 300 mg capsule RxNorm: 934239 1 Capsule(s) PO BID 12/201608/20/2016 Inactive losartan 50 mg tablet RxNorm: 543182 1 Tablet(s) PO QAM 201610/24/2016 Inactive fluconazole 200 mg tablet RxNorm: 734829 1 Tablet(s) PO daily 07/19/2016 07/28/2016 Inactive cefuroxime axetil 500 mg tablet RxNorm: 767363 1 Tablet(s) PO BID 07/19/2016 08/02/2016 Inactive Xanax 0.25 mg tablet RxNorm: 934030 1/2-1 Tablet(s) PO QDAY PRN 07/14/2016 08/23/2016 Inactive cyanocobalamin (vit B-12) 1,000 mcg/mL injection solution RxNorm: 392022 1 Milliliter(s) Inj 07/14/2016 07/14/2016 Inactive Diflucan 150 mg tablet RxNorm: 800515 1 Tablet(s) PO daily 10/201607/17/2016 Inactive Keflex 250 mg capsule RxNorm: 756964 1 Capsule(s) PO QHS 201607/13/2016 Inactive Lexapro 5 mg tablet RxNorm: 484407 1 Tablet(s) PO QHS TO START AFTER YOU ARE FINISHED WITH THE DIFLUCAN!! 06/30/2016 Inactive cefuroxime axetil 250 mg tablet RxNorm: 762270 1 Tablet(s) PO BID 06/26/2016 06/25/2016 Inactive ceftriaxone 500 mg solution for injection RxNorm: 8458512 1 Milliliter(s) Inj 06/26/2016 06/26/2016 Inactive cefuroxime axetil 250 mg tablet RxNorm: 536049 1 Tablet(s) PO BID 06/26/2016 07/05/2016 Inactive Diflucan 150 mg tablet RxNorm: 053243 1 Tablet(s) PO QW as needed symptoms of thrush 06/23/2016 08/02/2016 Inactive Zantac 150 mg tablet RxNorm: 563449 1 Tablet(s) PO daily 201607/14/2016 Inactive Xanax 0.25 mg tablet RxNorm: 569334 1/2-1 Tablet(s) PO HS PRN 06/05/2016 07/13/2016 Inactive Keflex 250 mg capsule RxNorm: 467068 1 Capsule(s) PO QHS as needed 06/05/2016 07/04/2016 Inactive Cipro 500 mg tablet RxNorm: 041861 1 Tablet(s) PO BID 201606/07/2016 Inactive ceftriaxone 500 mg solution for injection RxNorm: 6843251 1 Milliliter(s) Inj 05/28/2016 05/28/2016 Inactive cefdinir 300 mg capsule RxNorm: 941939 1 Capsule(s) PO BID 05/31/2016 Inactive metronidazole 500 mg tablet RxNorm: 936940 1 Tablet(s) PO BID 05/28/2016 06/03/2016 Inactive sucralfate 1 gram tablet RxNorm: 199297 1 Tablet(s) PO AC & HS 05/21/2016 07/20/2016 Inactive sucralfate 1 gram tablet RxNorm: 289184 1 Tablet(s) PO AC & HS 05/21/2016 05/20/2016 Inactive omeprazole 40 mg capsule,delayed release RxNorm: 080687 1 Capsule(s) PO daily 05/21/2016 08/18/2016 Inactive omeprazole 40 mg capsule,delayed release RxNorm: 599062 1 Capsule(s) PO daily 05/21/2016 05/20/2016 Inactive losartan 50 mg tablet RxNorm: 657091 1 Tablet(s) PO QAM 201607/26/2016 Inactive latanoprost 0.005 % eye drops RxNorm: 138607 1 Drop(s) OPH daily No Start Date Active Culturelle 15 billion cell sprinkle capsule RxNorm: 2615791 1 Capsule(s) PO TID No Start Date Active Calcium 500 + D (D3) oral RxNorm: 705371 oral No Start Date Active cranberry 500 mg capsule RxNorm: 905972 1 Capsule(s) PO daily No Start Date Active Ocuvite Lutein and Zeaxanthin 60 mg-30 unit-15 mg-2 mg-6 mg capsule RxNorm: 837961 1 Capsule(s) PO daily No Start Date Active Pyridium 200 mg tablet RxNorm: 1740529 1 Tablet(s) PO TID as needed No Start Date Active Toviaz 4 mg tablet,extended release RxNorm: 282002 1 Tablet(s) PO daily No Start Date Active Klor-Con 10 mEq tablet,extended release RxNorm: 654180 1 Tablet(s) PO BID No Start Date Active Estrace 0.01% (0.1 mg/gram) vaginal cream RxNorm: 457708 1 Application VAG TIW No Start Date 07/13/2016 Inactive allopurinol 300 mg tablet RxNorm: 669087 1 Tablet(s) PO daily No Start Date 06/22/2016 Inactive triamterene 37.5 mg-hydrochlorothiazide 25 mg tablet RxNorm: 137026 1 Tablet(s) PO daily No Start Date 10/07/2016 Inactive Seasonique 0.15 mg-30 mcg (84)/10 mcg(7) tablets,3 month dose pack RxNorm: 235909 1 Tablet(s) PO UD No Start Date 2016 Inactive hydrocodone 5 mg-acetaminophen 325 mg tablet RxNorm: 859278 1 Tablet(s) PO as needed No Start Date 08/27/2016 Inactive meloxicam 7.5 mg tablet RxNorm: 914293 1 Tablet(s) PO daily as needed No Start Date 10/07/2016 Inactive Multivitamins FC tablet RxNorm: 1 Tablet(s) PO daily No Start Date 10/07/2016 Inactive Fish Oil 1,000 mg capsule RxNorm: 1 Capsule(s) PO BID No Start Date 05/27/2016 Inactive tramadol 50 mg tablet RxNorm: 558736 1-2 Tablet(s) PO Q6 as needed for pain No Start Date 08/13/2016 Inactive Medication Administered Medication Codes Instructions Start Date Status Kenalog 40 mg/mL suspension for injection RxNorm: 5552930 1Milliliter 04/23/2017 No longer Active Kenalog 40 mg/mL suspension for injection RxNorm: 8366353 1Milliliter 10/08/2016 No longer Active cyanocobalamin (vit B-12) 1,000 mcg/mL injection solution RxNorm: 339886 1Milliliter 07/14/2016 No longer Active ceftriaxone 500 mg solution for injection RxNorm: 8039201 1Milliliter 06/26/2016 No longer Active ceftriaxone 500 mg solution for injection RxNorm: 1403984 1Milliliter 05/28/2016 No longer Active Immunizations Vaccine Codes Date Status Pneumococcal CVX: 133 04/01/2017 completed Influenza CVX: 141 12/18/2016 completed Assessments Condition Codes Effective Dates Dysuria ICD-10: R30.0 ICD-9: 788.1 05/11/2017 Slow transit constipation ICD-10: K59.01 ICD-9: 564.01 04/23/2017 Other allergic rhinitis ICD-10: J30.89 ICD-9: 477.8 04/23/2017 Acute laryngopharyngitis ICD-10: J06.0 ICD-9: 465.0 04/23/2017 Generalized anxiety disorder ICD-10: F41.1 ICD-9: 300.02 [...] Pelvic and perineal pain ICD-10: R10.2 ICD-9: ADC8247 08/11/2016 Hypo-osmolality and hyponatremia ICD-10: E87.1 ICD-9: [...] Visit Reason For Visit Effective Dates Notes cough 04/23/2017 fatigue 03/19/2017 abdominal pain 03/08/2017 urinary frequency [...] Observation Code Item Item Code Result Date Urine Culture Ucult Complete >100,000 col/ml aerobic growth sent to ref lab 05/13/2017 Culture Urine [id number] URINE CULTURE SEE NOTES 04/06/2017 Culture Urine [id number] Continued Results 04/06/2017 Urine Culture Ucult Complete >100,000 col/ml aerobic growth sent to ref lab 04/02/2017 Culture Urine [id number] URINE CULTURE SEE NOTES 03/22/2017 Culture Urine [id number] Continued Results 03/22/2017 Urine Culture Ucult Complete >100,000 col/ml aerobic growth sent to ref lab 03/20/2017 Comp Metabolic Hnf115 NA 131 mEq/L 03/19/2017 Comp Metabolic Fyp290 K 4.0 mEq/L 03/19/2017 Comp Metabolic Urc373 CL 93 mEq/L 03/19/2017 Comp Metabolic Tgn485 CO2 28.0 mEq/L 03/19/2017 Comp Metabolic Nqk916 ANION GAP 14 03/19/2017 Comp Metabolic Rmg313 GLUCOSE 94 mg/dL 03/19/2017 Comp Metabolic Huo423 Creat 0.8 mg/dL 03/19/2017 Comp Metabolic Wyw485 eGFR 69 ml/min/1.73m2 03/19/2017 Comp Metabolic Uxu417 BUN 16 mg/dL 03/19/2017 Comp Metabolic Nve118 B/C Ratio 19.3 Ratio 03/19/2017 Comp Metabolic Lax352 CALCIUM 9.5 mg/dL 03/19/2017 Comp Metabolic Fve899 ALK PHOS 54 U/L 03/19/2017 Comp Metabolic Pdf057 AST(SGOT) 22 U/L 03/19/2017 Comp Metabolic Uiz315 ALT(SGPT) 18 U/L 03/19/2017 Comp Metabolic Vjx605 BILI T 0.4 mg/dL 03/19/2017 Comp Metabolic Eaa359 ALBUMIN 4.2 g/dL 03/19/2017 Comp Metabolic Nnt952 TPRO 6.2 g/dL 03/19/2017 Comp Metabolic Xkg001 GLOB 2.0 g/dL 03/19/2017 Comp Metabolic Tgo533 A/G Ratio 2.2 Ratio 03/19/2017 Comp Metabolic Mmk836 Osmo 264 mOsmo 03/19/2017 Cbc With Differential [...] 34.3 pg 03/19/2017 Cbc With Differential Ord2 [place]% 10.3 % 03/19/2017 Cbc With Differential Ord2 [...] 1.49 K/ul 03/19/2017 Cbc With Differential Ord2 [place] ABS# 1.2 K/ul 03/19/2017 Cbc With Differential [...] Ord15 CALCIUM 9.3 mg/dL 08/11/2016 Culture Urine [id number] URINE CULTURE SEE NOTES 08/10/2016 Culture Urine [id number] Continued Results 08/10/2016 Urine Culture Ucult Complete >100,000 col/ml aerobic growth sent to ref lab 08/07/2016 Comp Metabolic Hdi559 NA 132 mEq/L 07/10/2016 Comp Metabolic Oak015 K 3.9 mEq/L 07/10/2016 Comp Metabolic Jok669 CL 94 mEq/L 07/10/2016 Comp Metabolic Cnw399 CO2 28.0 mEq/L 07/10/2016 Comp Metabolic Dcl752 ANION GAP 14 07/10/2016 Comp Metabolic Krq856 GLUCOSE 96 mg/dL 07/10/2016 Comp Metabolic Ghf634 Creat 0.8 mg/dL 07/10/2016 Comp Metabolic Vwd719 eGFR 70 ml/min/1.73m2 07/10/2016 Comp Metabolic Utw246 BUN 22 mg/dL 07/10/2016 Comp Metabolic Egi822 B/C Ratio 26.8 Ratio 07/10/2016 Comp Metabolic Bce114 CALCIUM 10.2 mg/dL 07/10/2016 Comp Metabolic Iyh191 ALK PHOS 50 U/L 07/10/2016 Comp Metabolic Nix822 AST(SGOT) 21 U/L 07/10/2016 Comp Metabolic Bcp218 ALT(SGPT) 19 U/L 07/10/2016 Comp Metabolic Bjg268 BILI T 0.5 mg/dL 07/10/2016 Comp Metabolic Rlp202 ALBUMIN 4.2 g/dL 07/10/2016 Comp Metabolic Lxd298 TPRO 6.6 g/dL 07/10/2016 Comp Metabolic Tol573 GLOB 2.4 g/dL 07/10/2016 Comp Metabolic Xio445 A/G Ratio 1.8 Ratio 07/10/2016 Comp Metabolic Rdy570 Osmo 268 mOsmo 07/10/2016 Wet Prep [id number] Yeast Vaginal TNP:Duplicate Order 2016 Wet Prep [id number] Trichomonas TNP:Duplicate Order 07/10/2016 Cbc With Differential [...] 34.6 pg 07/10/2016 Cbc With Differential Ord2 [place]% 10.7 % 07/10/2016 Cbc With Differential Ord2 [...] 1.35 K/ul 07/10/2016 Cbc With Differential Ord2 [place] ABS# 0.9 K/ul 07/10/2016 Cbc With Differential Ord2 Eos ABS# 0.1 K/ul 07/10/2016 Cbc With Differential Ord2 Baso ABS# 0.0 K/ul 07/10/2016 Wet Prep [id number] Yeast Vaginal None 07/10/2016 Wet Prep [id number] Trichomonas None 07/10/2016 Comp Metabolic Wzx620 NA 131 mEq/L 07/03/2016 Comp Metabolic Srn297 K 4.4 mEq/L 07/03/2016 Comp Metabolic Snr016 CL 92 mEq/L 07/03/2016 Comp Metabolic Cqt240 CO2 28.0 mEq/L 07/03/2016 Comp Metabolic Lpw094 ANION GAP 15 07/03/2016 Comp Metabolic Lea565 GLUCOSE 96 mg/dL 07/03/2016 Comp Metabolic Dyt770 Creat 0.8 mg/dL 07/03/2016 Comp Metabolic Tyq342 eGFR 76 ml/min/1.73m2 07/03/2016 Comp Metabolic Yro236 BUN 22 mg/dL 07/03/2016 Comp Metabolic Cvw707 B/C Ratio 28.9 Ratio 07/03/2016 Comp Metabolic Qpb733 CALCIUM 10.3 mg/dL 07/03/2016 Comp Metabolic Ixa901 ALK PHOS 49 U/L 07/03/2016 Comp Metabolic Whs960 AST(SGOT) 21 U/L 07/03/2016 Comp Metabolic Lnf350 ALT(SGPT) 19 U/L 07/03/2016 Comp Metabolic Pag753 BILI T 0.5 mg/dL 07/03/2016 Comp Metabolic Arc996 ALBUMIN 4.3 g/dL 07/03/2016 Comp Metabolic Tqw129 TPRO 6.7 g/dL 07/03/2016 Comp Metabolic Sdt348 GLOB 2.4 g/dL 07/03/2016 Comp Metabolic Awx717 A/G Ratio 1.8 Ratio 07/03/2016 Comp Metabolic Grj757 Osmo 266 mOsmo 07/03/2016 Cbc With Differential [...] 33.9 pg 07/03/2016 Cbc With Differential Ord2 [place]% 10.3 % 07/03/2016 Cbc With Differential Ord2 [...] 1.40 K/ul 07/03/2016 Cbc With Differential Ord2 [place] ABS# 0.9 K/ul 07/03/2016 Cbc With Differential [...] Ord62 ANION GAP 12 06/11/2016 Comp Metabolic Khi963 NA 127 mEq/L 06/05/2016 Comp Metabolic Oqt533 K 4.0 mEq/L 06/05/2016 Comp Metabolic Tkh149 CL 94 mEq/L 06/05/2016 Comp Metabolic Vus113 CO2 26.0 mEq/L 06/05/2016 Comp Metabolic Lkz777 ANION GAP 11 06/05/2016 Comp Metabolic Ojm402 GLUCOSE 101 mg/dL 06/05/2016 Comp Metabolic Cry610 Creat 0.7 mg/dL 06/05/2016 Comp Metabolic Tcg229 eGFR 80 ml/min/1.73m2 06/05/2016 Comp Metabolic Tmo657 BUN 15 mg/dL 06/05/2016 Comp Metabolic Avr751 B/C Ratio 20.5 Ratio 06/05/2016 Comp Metabolic Tkq101 CALCIUM 9.2 mg/dL 06/05/2016 Comp Metabolic Aoh674 ALK PHOS 43 U/L 06/05/2016 Comp Metabolic Vzg442 AST(SGOT) 32 U/L 06/05/2016 Comp Metabolic Sgj483 ALT(SGPT) 43 U/L 06/05/2016 Comp Metabolic Uvm127 BILI T 0.4 mg/dL 06/05/2016 Comp Metabolic Cmf817 ALBUMIN 4.3 g/dL 06/05/2016 Comp Metabolic Dij533 TPRO 6.2 g/dL 06/05/2016 Comp Metabolic Nnt159 GLOB 2.0 g/dL 06/05/2016 Comp Metabolic Pxi994 A/G Ratio 2.2 Ratio 06/05/2016 Comp Metabolic Qnz783 Osmo 256 mOsmo 06/05/2016 Cbc With Differential [...] 34.8 pg 06/05/2016 Cbc With Differential Ord2 [place]% 11.1 % 06/05/2016 Cbc With Differential Ord2 [...] 1.03 K/ul 06/05/2016 Cbc With Differential Ord2 [place] ABS# 0.8 K/ul 06/05/2016 Cbc With Differential Ord2 Eos ABS# 0.0 K/ul 06/05/2016 Cbc With Differential Ord2 Baso ABS# 0.0 K/ul 06/05/2016 Culture Urine [id number] URINE CULTURE SEE NOTES 06/01/2016 Culture Urine [id number] Continued Results 06/01/2016 Urine Culture Ucult Complete [...] System Result Effective Dates Constitutional recent illness 04/23/2017 Constitutional No chills 04/23/2017 Constitutional No diaphoresis 04/23/2017 Constitutional No fever 04/23/2017 Eyes No eye erythema 04/23/2017 Ears/Nose/Throat/Neck nasal discharge Ears/Nose/Throat/Neck nasal allergies Ears/Nose/Throat/Neck postnasal drip Ears/Nose/Throat/Neck sinus congestion Cardiovascular No chest pain/pressure Respiratory cough 04/23/2017 Respiratory No dyspnea 04/23/2017 Respiratory chest congestion 04/23/2017 Gastrointestinal No abdominal pain 2017 Gastrointestinal constipation 04/23/2017 Gastrointestinal No diarrhea 04/23/2017 Gastrointestinal No vomiting 04/23/2017 Gastrointestinal No nausea 04/23/2017 Gastrointestinal No melena 04/23/2017 Gastrointestinal No hematochezia 2017 Dermatologic No rash 04/23/2017 Neurologic No alteration of consciousness 04/23/2017 Neurologic No mental status change 2017 Constitutional recent illness 03/19/2017 Constitutional No chills [...] 1994 Constitutional general appearance Overall: well developed 04/23/2017 None Full Exam - General 1994 Constitutional general appearance Overall: well nourished 04/23/2017 None Full Exam - General 1994 Constitutional general appearance Overall: in no acute distress 04/23/2017 None Full Exam - General 1994 Eyes conjunctiva /eyelids Overall: conjunctiva clear 04/23/2017 None Full Exam - General 1994 Eyes conjunctiva /eyelids Overall: cornea clear 04/23/2017 None Full Exam - General 1994 Eyes conjunctiva /eyelids Overall: eyelids normal 04/23/2017 None Full Exam - General 1994 Ears/Nose/Throat otoscopic exam Overall: external auditory canals clear 04/23/2017 None Full Exam - General 1994 Ears/Nose/Throat otoscopic exam Tympanic membrane: air- fluid level 04/23/2017 None Full Exam - General 1994 Ears/Nose/Throat lips/teeth/gingiva Overall: benign lips 04/23/2017 None Full Exam - General 1994 Ears/Nose/Throat oral cavity/pharynx/larynx Overall: oral mucosa clear 04/23/2017 None Full Exam - General 1994 Ears/Nose/Throat oral cavity/pharynx/larynx Posterior Pharynx: clear post nasal drainage 04/23/2017 None Full Exam - General 1994 Ears/Nose/Throat oral cavity/pharynx/larynx Oropharynx: erythema 04/23/2017 None Full Exam - General 1994 Respiratory respiratory effort/rhythm Overall: normal rate 04/23/2017 None Full Exam - General 1994 Respiratory respiratory effort/rhythm Overall: no retractions 04/23/2017 None Full Exam - General 1994 Respiratory auscultation Diffuse: diminished 04/23/2017 None Full Exam - General 1994 Cardiovascular auscultation of heart Rate: regular rate 04/23/2017 None Full Exam - General 1994 Cardiovascular auscultation of heart Rhythm: regular rhythm 04/23/2017 None Full Exam - General 1994 Abdomen abdominal exam Overall: normal bowel sounds 04/23/2017 None Full Exam - General 1994 Abdomen abdominal exam Overall: no tenderness 04/23/2017 None Full Exam - General 1994 Musculoskeletal head and neck Overall: head atraumatic 04/23/2017 None Full Exam - General 1994 Neurologic cranial nerves Overall: crainial nerves 2 - 12 grossly intact 04/23/2017 None Full Exam - General 1994 Psychiatric orientation/consciousness Overall: oriented to person, place and time 04/23/2017 None Full Exam - General 1994 Psychiatric mood and affect Overall: normal mood and affect 04/23/2017 None Full Exam - General 1994 Constitutional [...] affect 12/18/2016 None Full Exam - General 1995 Constitutional general appearance Overall: well developed 12/18/2016 [...] rate 08/11/2016 None Full Exam - General 1995 Musculoskeletal gait and station Overall: normal gait [...] clear 04/30/2016 None Full Exam - General 1995 Ears/Nose/Throat oral cavity/pharynx/larynx Overall: oropharyngeal mucosa clear 04/30/2016 None Full Exam - General 1995 Ears/Nose/Throat oral cavity/pharynx/larynx Overall: hypopharynx benign 04/30/2016 [...] Codes Date URINALYSIS NONAUTO W/O SCOPE CPT-4: 98922 05/11/2017 THER/PROPH/DIAG INJ SC/IM CPT-4: 23121 04/23/2017 TRIAMCINOLONE ACET INJ NOS CPT-4: J3301 04/23/2017 URINALYSIS NONAUTO W/O SCOPE CPT-4: 89581 04/01/2017 URINALYSIS NONAUTO W/O SCOPE CPT-4: 77444 03/05/2017 FLU VACC PRSV FREE INC ANTIG CPT-4: 76730 12/18/2016 ADMIN INFLUENZA VIRUS VAC CPT-4: G0008 12/18/2016 URINALYSIS NONAUTO W/O SCOPE CPT-4: 61465 11/26/2016 URINALYSIS NONAUTO W/O SCOPE CPT-4: 88837 11/06/2016 URINALYSIS NONAUTO W/O SCOPE CPT-4: 67034 10/16/2016 TRIAMCINOLONE ACET INJ NOS CPT-4: J3301 10/08/2016 URINALYSIS NONAUTO W/O SCOPE CPT-4: 64923 09/03/2016 URINALYSIS NONAUTO W/O SCOPE CPT-4: 09944 08/24/2016 URINALYSIS NONAUTO W/O SCOPE CPT-4: 54376 08/06/2016 THER/PROPH/DIAG INJ SC/IM CPT-4: 94723 07/14/2016 VITAMIN B12 INJECTION CPT-4: J3420 07/14/2016 URINALYSIS NONAUTO W/O SCOPE CPT-4: 69966 07/03/2016 THER/PROPH/DIAG INJ SC/IM CPT-4: 77256 06/26/2016 ROCEPHIN, PER 250 MG CPT-4: J0696 06/26/2016 URINALYSIS NONAUTO W/O SCOPE CPT-4: 16482 06/23/2016 URINALYSIS NONAUTO W/O SCOPE CPT-4: 15527 06/11/2016 URINALYSIS NONAUTO W/O SCOPE CPT-4: 45968 05/28/2016 THER/PROPH/DIAG INJ SC/IM CPT-4: 21569 05/28/2016 ROCEPHIN, PER 250 MG CPT-4: J0696 05/28/2016 REMOVAL OF IMPACTED WAX CPT-4: G0268 05/06/2016 Vital Signs Date Vital 04/23/2017 Blood Pressure 1: 132/78 Code : 8480-6 BMI: 27.8 Code : 86060-2 Heart Rate 1 : 76 bpm Height: 5'4" SpO2: 98% Temperature: 36.8 (C) / 98.2 (F) Weight: 162 lbs 03/19/2017 Blood Pressure 1: 144/76 Code : 8480-6 BMI: 26.3 Code : 79712-8 Heart Rate 1 : 102 bpm Height: 5'4" SpO2: 98% Temperature: 36.8 (C) / 98.3 (F) Weight: 153 lbs 03/08/2017 Blood Pressure 1: 136/80 Code : 8480-6 BMI: 26.9 Code : 25843-8 Heart Rate 1 : 76 bpm Height: 5'4" SpO2: 96% Weight: 157 lbs 02/02/2017 Blood Pressure 1: 148/68 Code : 8480-6 BMI: 26.9 Code : 10242-7 Heart Rate 1 : 76 bpm Height: 5'4" SpO2: 97% Weight: 157 lbs 01/15/2017 Blood Pressure 1: 142/76 Code : 8480-6 BMI: 26.9 Code : 10671-4 Heart Rate 1 : 86 bpm Height: 5'4" SpO2: 97% Weight: 157 lbs 12/30/2016 Blood Pressure 1: 140/76 Code : 8480-6 BMI: 26.9 Code : 67762-6 Heart Rate 1 : 84 bpm Height: 5'4" SpO2: 97% Weight: 157 lbs 12/22/2016 Blood Pressure 1: 130/78 Code : 8480-6 BMI: 26.9 Code : 29705-9 Heart Rate 1 : 80 bpm Height: 5'4" SpO2: 97% Weight: 157 lbs 12/18/2016 BMI: 26.9 Code: 08833-4 Height: 5'4" Weight: 157 lbs 11/20/2016 Blood Pressure 1: 134/60 Code : 8480-6 BMI: 25.9 Code : 59074-1 Heart Rate 1 : 80 bpm Height: 5'4" SpO2: 97% Weight: 151 lbs 11/16/2016 BMI: 25.6 Code: 35805-3 Heart Rate 1: 74 bpm Height: 5'4" SpO2: 97% Weight: 149 lbs 10/28/2016 Blood Pressure 1: 128/70 Code : 8480-6 BMI: 25.7 Code : 79712-6 Heart Rate 1 : 70 bpm Height: 5'4" SpO2: 96% Weight: 150 lbs 10/13/2016 Blood Pressure 1: 130/78 Code : 8480-6 Heart Rate 1: 69 bpm Height: 5'4" SpO2: 98% 10/08/2016 Blood Pressure 1: 122/70 Code : 8480-6 BMI: 25.6 Code : 71500-3 Heart Rate 1 : 79 bpm Height: 5'4" SpO2: 97% Temperature: 37.0 (C) / 98.6 (F) Weight: 149 lbs 09/29/2016 Blood Pressure 1: 124/70 Code : 8480-6 BMI: 25.4 Code : 94829-2 Heart Rate 1 : 74 bpm Height: 5'4" SpO2: 94% Weight: 148 lbs 09/03/2016 Blood Pressure 1: 120/68 Code : 8480-6 BMI: 24.7 Code : 91448-2 Heart Rate 1 : 59 bpm Height: 5'4" SpO2: 97% Weight: 144 lbs 08/24/2016 Blood Pressure 1: 128/74 Code : 8480-6 BMI: 24.7 Code : 72980-0 Heart Rate 1 : 75 bpm Height: 5'4" SpO2: 97% Weight: 144 lbs 08/11/2016 Blood Pressure 1: 142/76 Code : 8480-6 BMI: 24.9 Code : 37928-8 Heart Rate 1 : 77 bpm Height: 5'4" SpO2: 96% Weight: 145 lbs 08/03/2016 Blood Pressure 1: 142/78 Code : 8480-6 BMI: 25.1 Code : 58673-4 Heart Rate 1 : 75 bpm Height: 5'4" SpO2: 97% Temperature: 36.9 (C) / 98.5 (F) Weight: 146 lbs 07/27/2016 Blood Pressure 1: 158/80 Code : 8480-6 BMI: 25.1 Code : 16687-4 Heart Rate 1 : 72 bpm Height: 5'4" SpO2: 98% Weight: 146 lbs 07/21/2016 Blood Pressure 1: 144/76 Code : 8480-6 BMI: 25.1 Code : 06914-0 Heart Rate 1 : 80 bpm Height: 5'4" SpO2: 94% Temperature: 37.3 (C) / 99.2 (F) Weight: 146 lbs 07/14/2016 Blood Pressure 1: 128/74 Code : 8480-6 BMI: 25.1 Code : 58655-1 Heart Rate 1 : 79 bpm Height: 5'4" SpO2: 97% Temperature: 37.2 (C) / 98.9 (F) Weight: 146 lbs 8 oz 07/10/2016 Blood Pressure 1: 148/78 Code : 8480-6 BMI: 25.1 Code : 36917-9 Heart Rate 1 : 82 bpm Height: 5'4" SpO2: 96% Temperature: 37.2 (C) / 99.0 (F) Weight: 146 lbs 8 oz 07/03/2016 Blood Pressure 1: 134/76 Code : 8480-6 Heart Rate 1: 79 bpm Height: 5'4" SpO2: 98% Temperature: 36.9 (C) / 98.4 (F) 06/30/2016 Blood Pressure 1: 138/78 Code : 8480-6 BMI: 25.1 Code : 09172-4 Heart Rate 1 : 90 bpm Height: 5'4" SpO2: 97% Weight: 146 lbs 06/23/2016 Blood Pressure 1: 132/58 Code : 8480-6 BMI: 25.7 Code : 20701-6 Heart Rate 1 : 85 bpm Height: 5'4" SpO2: 97% Weight: 150 lbs 06/15/2016 Blood Pressure 1: 134/62 Code : 8480-6 BMI: 26.4 Code : 20180-2 Heart Rate 1 : 75 bpm Height: 5'4" SpO2: 95% Weight: 154 lbs 06/05/2016 Blood Pressure 1: 156/80 Code : 8480-6 BMI: 26.4 Code : 98101-4 Heart Rate 1 : 92 bpm Height: 5'4" SpO2: 98% Weight: 154 lbs 06/01/2016 Blood Pressure 1: 135/80 Code : 8480-6 Heart Rate 1: 95 bpm SpO2: 97% Temperature: 37.1 (C) / 98.8 (F) 05/28/2016 Blood Pressure 1: 140/80 Code : 8480-6 BMI: 26.1 Code : 67626-2 Heart Rate 1 : 89 bpm Height: 5'4" SpO2: 96% Weight: 152 lbs 05/11/2016 Blood Pressure 1: 154/86 Code : 8480-6 Heart Rate 1: 89 bpm Height: 5'4" SpO2: 95% Weight: 04/30/2016 Blood Pressure 1: 142/72 Code : 8480-6 BMI: 26.3 Code : 94541-6 Heart Rate 1 : 87 bpm Height: 5'4" SpO2: 97% Weight: 153 lbs Functional Status No Functional Status data History of Present Illness Symptom Name Status Result Effective Date Notes cough Location in the lung 04/23/2017 None cough Quality acute None cough Pertinent Findings Denies dyspnea 04/23/2017 None sinus congestion Location maxillary sinuses 04/23/2017 None sinus congestion Quality acute 04/23/2017 None sinus congestion Pertinent Findings Denies fever 04/23/2017 None Hospital Follow Up _ Other: abdominal pain 04/23/2017 None Hospital Follow Up Pertinent Findings Denies fever 04/23/2017 None Hospital Follow Up Pertinent Findings Denies pain 04/23/2017 None fatigue Frequency of Episodes daily 03/19/2017 None [...] data Encounters Encounter Performer Location Codes Date 95007 EST. PATIENT, LEVEL III Diagnosis: Acute laryngopharyngitis[ICD10: J06.0] Diagnosis: Other allergic rhinitis[ICD10: J30.89] Diagnosis: Slow transit constipation[ICD10: K59.01] [facility] CPT-4: 81626 04/23/2017 21082 EST. PATIENT, LEVEL III Diagnosis: Dysuria[ICD10: R30.0] Diagnosis: Other malaise[ICD10: R53.81] Diagnosis: Other fatigue[ICD10: R53.83] Diagnosis: Generalized anxiety disorder[ICD10: F41.1] Meli Amador MD, [facility] CPT-4: 42455 03/19/2017 07883 EST. PATIENT, LEVEL III Diagnosis: Left lower quadrant pain[ICD10: R10.32] Meli Amador MD, [facility] CPT-4: 07385 03/08/2017 17845 EST. PATIENT, LEVEL III Diagnosis: Dysuria[ICD10: R30.0] Diagnosis: Generalized anxiety disorder[ICD10: F41.1] Meli Amador MD, [facility] CPT-4: 77568 02/02/2017 60031 EST. PATIENT, LEVEL III Diagnosis: Generalized anxiety disorder[ICD10: F41.1] Diagnosis: Urinary tract infection, site not specified[ICD10: N39.0] eMli Amador MD, [facility] CPT-4: 84754 01/15/2017 35243 EST. PATIENT, LEVEL IV Diagnosis: Dysuria[ICD10: R30.0] Diagnosis: Rash and other nonspecific skin eruption[ICD10: R21] Meli Amador MD, [facility] CPT-4: 03219 12/30/2016 10005 EST. PATIENT, LEVEL IV Diagnosis: Localized edema[ICD10: R60.0] Diagnosis: Pain in left lower leg[ICD10: M79.662] Diagnosis: Dysuria[ICD10: R30.0] Meli Amador MD, [facility] CPT-4: 22946 12/22/2016 83863 EST. PATIENT, LEVEL IV Diagnosis: 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[ICD10: I83.92] Diagnosis: Urinary tract infection, site not specified[ICD10: N39.0] Diagnosis: Encounter for immunization[ICD10: Z23] Meli Amador MD, [facility] CPT-4: 31005 12/18/2016 ([id number]) 29930 EST. PATIENT, LEVEL III Diagnosis: 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[ICD10: I83.92] Diagnosis: Urinary tract infection, site not specified[ICD10: N39.0] Josiane Amador MD [facility] CPT-4: 53307 11/20/2016 17961 EST. PATIENT, LEVEL III Diagnosis: Dysuria[ICD10: R30.0] Meli Amador MD [facility] CPT-4: 83865 11/16/2016 ([id number]) 48145 EST. PATIENT, LEVEL III Diagnosis: Generalized anxiety disorder[ICD10: F41.1] Diagnosis: Urinary tract infection, site not specified[ICD10: N39.0] Mera Amador MD [facility] CPT-4: 47453 10/28/2016 ([id number]) 28324 EST. 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 PATIENT, LEVEL III Diagnosis: Dysuria[ICD10: R30.0] Diagnosis: Essential (primary) hypertension[ICD10: I10] Mera Amador MD [facility] CPT-4: 24784 09/29/2016 ([id number]) 69532 EST. PATIENT, LEVEL III Diagnosis: Generalized anxiety disorder[ICD10: F41.1] Diagnosis: Dysuria[ICD10: R30.0] Diagnosis: Personal history of urinary (tract) infections[ICD10: Z87.440] Mera Amador MD, [facility] CPT-4: 04563 09/03/2016 ([id number]) 06671 EST. PATIENT, LEVEL IV Diagnosis: Essential (primary) hypertension[ICD10: I10] Diagnosis: Generalized anxiety disorder[ICD10: F41.1] Diagnosis: Dysuria[ICD10: R30.0] Mera Amador MD, [facility] CPT-4: 57419 08/24/2016 91135 EST. PATIENT, LEVEL IV Diagnosis: Hypo-osmolality and hyponatremia[ICD10: E87.1] Diagnosis: Generalized anxiety disorder[ICD10: F41.1] Diagnosis: Pelvic and perineal pain[ICD10: R10.2] Diagnosis: Candidal stomatitis[ICD10: B37.0] Meli Amador MD, [facility] CPT -4: 67208 08/11/2016 ([id number]) 75844 EST. PATIENT, LEVEL III Diagnosis: Generalized anxiety disorder[ICD10: F41.1] Diagnosis: Pelvic and perineal pain[ICD10: R10.2] Josiane Amador MD, [facility] CPT-4: 63443 08/03/2016 82647 EST. PATIENT, LEVEL IV Diagnosis: Generalized anxiety disorder[ICD10: F41.1] Diagnosis: Pelvic and perineal pain[ICD10: R10.2] Diagnosis: Gastro-esophageal reflux disease without esophagitis[ICD10: K21.9] Meli Amador MD, [facility] CPT-4: 14892 07/27/2016 ([id number]) 98752 EST. PATIENT, LEVEL III Diagnosis: Urinary tract infection, site not specified[ICD10: N39.0] Diagnosis: Gastro-esophageal reflux disease without esophagitis[ICD10: K21.9] Diagnosis: Generalized anxiety disorder[ICD10: F41.1] Josiane Amador MD, [facility] CPT-4: 23323 07/21/2016 ([id number]) 21686 EST. PATIENT, LEVEL III Diagnosis: Generalized anxiety disorder[ICD10: F41.1] Diagnosis: Essential (primary) hypertension[ICD10: I10] Diagnosis: Vitamin B12 deficiency anemia, unspecified[ICD10: D51.9] Josiane Amador MD , [facility] CPT-4: 49037 07/14/2016 ([id number]) 79524 EST. PATIENT, LEVEL IV Diagnosis: Hypo-osmolality and hyponatremia[ICD10: E87.1] Diagnosis: Other specified noninflammatory disorders of vagina[ICD10: N89.8] Diagnosis: Essential (primary) hypertension[ICD10: I10] Diagnosis: Major depressive disorder, recurrent, mild[ICD10: F33.0] Josiane Amador MD , [facility] CPT-4: 59453 07/10/2016 ([id number]) 79481 EST. PATIENT, LEVEL III Diagnosis: Urinary tract infection, site not specified[ICD10: N39.0] Diagnosis: Hypo-osmolality and hyponatremia[ICD10: E87.1] Josiane Amador MD, [facility] CPT-4: 30886 07/03/2016 27931 EST. PATIENT, LEVEL IV Diagnosis: Generalized anxiety disorder[ICD10: F41.1] Diagnosis: Major depressive disorder, recurrent, mild[ICD10: F33.0] Diagnosis: Hypo-osmolality and hyponatremia[ICD10: E87.1] Meli Amador MD, [facility] CPT-4: 41640 06/30/2016 ([id number]) 61623 EST. PATIENT, LEVEL III Diagnosis: Hypo-osmolality and hyponatremia[ICD10: E87.1] Diagnosis: Dysuria[ICD10: R30.0] Diagnosis: Essential (primary) hypertension[ICD10: I10] Mera Amador MD, [facility] CPT-4: 18935 06/23/2016 84480 EST. PATIENT, LEVEL III Diagnosis: Candidal stomatitis[ICD10: B37.0] Diagnosis: Gastro-esophageal reflux disease without esophagitis[ICD10: K21.9] Diagnosis: Hypo-osmolality and hyponatremia[ICD10: E87.1] Meli Amador MD, [facility] CPT-4: 59837 06/15/2016 ([id number]) 57619 EST. PATIENT, LEVEL III Diagnosis: Essential (primary) hypertension[ICD10: I10] Diagnosis: Hypo-osmolality and hyponatremia[ICD10: E87.1] Diagnosis: Urinary tract infection, site not specified[ICD10: N39.0] Josiane Amador MD , [facility] CPT-4: 09334 06/05/2016 ([id number]) 53549 EST. PATIENT, LEVEL III Diagnosis: Urinary tract infection, site not specified[ICD10: N39.0] Josiane Amador MD , [facility] CPT-4: 88942 06/01/2016 ([id number]) 04984 EST. 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 PATIENT, LEVEL III Diagnosis: Pain in left toe(s)[ICD10: M79.675] Diagnosis: Tinea unguium[ICD10: B35.1] [facility] CPT-4: 73351 05/11/2016 ([id number]) OFFICE VISIT, NEW - LEVEL 4 Diagnosis: Essential (primary) hypertension[ICD10: I10] Diagnosis: Hypo-osmolality and hyponatremia[ICD10: E87.1] Mera Amador MD, [facility] CPT-4: 03785 04/30/2016 Plan of Care Planned Activity Notes Codes Status Date Appointment: Lab Draw 05/11/2017 Patient Education: Patient Medication Summary Completed 05/11/2017 Appointment: [facility] ([facility] Complex 05/10/2017 Appointment: Meli Malone WPtel: [address] [place], [place] [address] (30 min) Complex 04/30/2017 Appointment: Lab Draw 04/29/2017 Appointment: Meli Malone WPtel: [address] [place] [address] (30 min) Complex 04/29/2017 Visit Plan: URI - Pt advised to increase fluids, vitamin C. Discussed natural and expected course of this diagnosis and need to alert me if symptoms do not follow expected course, or if any worse. RX sent to patient' s pharmacy. Allergies - chronic - recommended pt to use allergy medication as prescribed. Pt has been counseled as to the appropriate use of the medication. Pt to call if allergy symptoms are not controlled with the medication. If using nasal spray, instructions as follows: Nasal spray- use twice daily, one spray per nostril twice daily, after 30 minutes, rinse out nose with saline spray.. Use opposite hand per nostril to spray in the nasal steroid allergy spray. Constipation - uncontrolled - I have discussed with the patient the need for adequate fiber and water intake to facilitate soft, easily passed stools. The pt noted understanding of our conversation. I have given the patient a recipe for "power pudding" - equal parts, bran flakes, prune juice, and apple sauce. The pt is to call if symptoms not improved on this regimen. 04/23/2017 Appointment: Meli Malone WPtel: [facility]5 [facility] (30 min) Complex 04/23/2017 Patient Education: Patient Medication Summary Completed 04/23/2017 Appointment: Lab Draw 04/01/2017 Patient Education: [...] current medications. 03/19/2017 Appointment: Meli Malone WPtel: [facility] (30 min) Complex 03/19/2017 Patient Education: Patient [...] or concerns. 03/08/2017 Appointment: [facility]el[facility] [phone] [facility] ([facility] min) Complex 03/08/2017 Patient Education: Patient [...] medications. 02/02/2017 Appointment: [facility]el[facility] [phone] [facility] (30 min) Complex 02/02/2017 Patient Education: Patient [...] discharge. 12/30/2016 Appointment: [phone] [facility] ([facility] min) Complex 12/30/2016 Patient Education: Patient [...] repeat UA today, infectious disease clinic in [place] is reviewing her case to make her an appointment, no other changes at this time. 12/22/2016 Appointment: [facility]el[facility] [phone] [facility] (15 min) Moderate 12/22/2016 Patient Education: Patient Medication Summary Completed 12/22/2016 Care Plan: VASCULAR STUDY Pending 12/22/2016 Care Plan: Referral Order SNOMED-CT : [id number] Pending 12/20/2016 Visit Plan: Varicose veins - [...] like to be referred to someone in [place] instead of at - will look into referral to specialist in [place]. 12/18/2016 Appointment: Meli Malone WPtel: [facility] [place] (15 min) Moderate 12/18/2016 Patient Education: Patient Medication Summary Completed 12/18/2016 Appointment: Lab Draw 12/04/2016 Appointment: Meli Malone WPtel: [facility] [place] (30 min) Complex 11/27/2016 Visit Plan: UA negative - pt was feeling better on the diflucan - will refill RX x 1 - pt has an appointment with Urogynecology on . 11/26/2016 Appointment: Lab Draw 11/26/2016 Patient Education: Patient Medication Summary Completed 11/26/2016 Visit Plan: Varicose veins-recommend compression stockings- monitor symptoms and call if uncontrolled UTI-culture urine 11/20/2016 Appointment: Josiane Berry WPtel: [phone] [place] (30 min) Complex 11/20/2016 Patient Education: [...] concerns. 11/16/2016 Appointment: Meli Malone WPtel: [phone] [facility] (15 min) Moderate 11/16/2016 Patient Education: Patient [...] not improved. 10/28/2016 Appointment: [phone] (15 min) Moderate 10/28/2016 Patient Education: Patient Medication Summary Completed 10/28/2016 Appointment: Lab Draw 10/16/2016 Patient Education: Patient Medication Summary Completed 10/16/2016 Visit Plan: Allergies-continue claritin-add flonase as directed UTI-UA negative-symptoms resolved Gdmcu-eppxmhvg-wczawwk with upset stomach and feels more anxious/jittery-likely due to prednisone-stay off prednisone and call if symptoms do not resolve. Patient and caregiver verbalized understanding of plan. 10/13/2016 Visit Plan: Allergies-continue claritin-add flonase as directed UTI-UA negative-symptoms resolved Gtizw-klfrhsvw-xlzayvw with upset stomach and feels more anxious/jittery-likely due to prednisone-stay off prednisone and call if symptoms do not resolve. Patient and caregiver verbalized understanding of plan. 10/13/2016 Appointment: Josiane Berry WPtel: [address] [place], [place] [id number] (15 min) Moderate 10/13/2016 Patient Education: Patient Medication Summary Completed 10/13/2016 Visit Plan: Allergic reaction-suspect due to cefdinir- kenalog injection today in the office-start prednisone tomorrow-start oral anti histamine such as claritin or zyrtec as directed-call if symptoms do not resolve , ER if any worse. Patient and friend verbalized understanding of plan. 10/08/2016 Appointment: Josiane Berry WPtel: [address] [place], [place] [phone] (30 min) Complex 10/08/2016 Patient Education: Patient [...] in November. 09/29/2016 Appointment: Mera Amador WPtel: [address] [place], [place] [phone] (15 min) Moderate 09/29/2016 Patient Education: Patient Medication Summary Completed 09/29/2016 Appointment: Mera Amador WPtel: [address] [place], [place] [phone] (15 min) Moderate 09/23/2016 Appointment: Lab Draw 09/09/2016 Visit Plan: Anxiety - uncontrolled - restart the LEXAPRO 5mg at bedtime. Recurrent urinary tract infection - start on the PREVENTATIVE antibiotic trimethoprim 100mg daily. 09/03/2016 Appointment: Mera Amador WPtel: [address] [place], [place] [phone] (15 min) Moderate 09/03/2016 Patient Education: Patient [...] medications. 08/24/2016 Appointment: Mera Amador WPtel: [phone] [facility] (15 min) Moderate 08/24/2016 Patient Education: Patient [...] or concerns. 08/11/2016 Appointment: Meli Malone WPtel: [phone] [facility] (30 min) Complex 08/11/2016 Patient Education: Patient Medication Summary Completed 08/11/2016 Appointment: Lab Draw 08/06/2016 Patient Education: Patient Medication Summary Completed 08/06/2016 Appointment: Josiane Berry WPtel: [phone] [place] (15 min) Moderate 08/04/2016 Visit Plan: Anxiety-continue lexapro-xanax prn-no changes in medications today Pelvic pain-UA negative-patient to see Dr bAraham for YOUTH DIRECTOR evaluation 08/03/2016 Appointment: Josiane Berry WPtel: [phone] [phone] [place] (10 min) Simple 08/03/2016 Patient [...] above medications. 07/27/2016 Appointment: Meli Malone WPtel: [facility] (15 min) Moderate 07/27/2016 Patient Education: [...] Dr Hughes 07/21/2016 Appointment: Josiane Berry WPtel: [facility] [place] [phone] (15 min) Moderate 07/21/2016 Patient Education: Patient [...] in medications 07/14/2016 Appointment: Josiane Berry WPtel: [facility] [place] [phone] (30 min) Complex 07/14/2016 Patient Education: Patient [...] sodium-check labs 07/10/2016 Appointment: Josiane Berry WPtel: [phone] (15 min) Moderate 07/10/2016 Patient Education: Patient Medication Summary Completed 07/10/2016 Visit Plan: UTI-finish cefuroxime-then start preventative abx-recheck UA in 1 week Low sodium-check labs today Depression-start the lexapro as directed 07/03/2016 Appointment: Josiane Berry WPtel: [phone] (15 min) Moderate 07/03/2016 Patient Education: [...] this patient. 06/30/2016 Appointment: [facility]Ptel[phone] [facility] (30 min) Complex 06/30/2016 Patient Education: Patient [...] serially 06/23/2016 Appointment: Mera Amador WPtel: [phone] [facility] (15 min) Moderate 06/23/2016 Patient Education: Patient [...] monitor labs. 06/15/2016 Appointment: Meli Malone WPtel: [facility] [place] (10 min) Simple 06/15/2016 Patient Education: [...] short time 06/05/2016 Appointment: Josiane Berry WPtel: [phone] [place] (15 min) Moderate 06/05/2016 Patient Education: Patient Medication Summary Completed 06/05/2016 Visit Plan: UTI-persistent symptoms-stop cefdinir start cipro as directed-repeat UA upon completion of abx-continue estrace cream as directed-keep appt with Dr Hughes 06/01/2016 Appointment: Josiane Berry WPtel: [phone] [phone] [place] (15 min) Moderate 06/01/2016 Patient Education: Patient [...] times daily. 05/28/2016 Appointment: Mera Amador WPtel: [facility] (15 min) Moderate 05/28/2016 Patient Education: Patient Medication Summary Completed 05/28/2016 Visit Plan: Left great toe pain-with fungal infection of nail-- large nail nippers and dremmel used to trim dystrophic, thickened, elongated toenail left great toe-patient verbalized relief from pain. Instructed patient to call if symptoms return or other concerns. 05/11/2016 Appointment: Josiane Berry WPtel: [phone] (15 min) Moderate 05/11/2016 Patient Education: Patient [...] monitor symptoms. 04/30/2016 Appointment: Mera Amador WPtel: [address] [place] [address] New Patient 04/30/2016 Patient Education: Patient Medication [...] claritin-add flonase as directed UTI-UA negative-symptoms resolved Kxigj-bgfoxcpr-yhxdlxn with upset stomach and feels more anxious/jittery-likely due to prednisone-stay off prednisone and call if symptoms do not resolve. Patient and caregiver verbalized understanding of plan. . Allergies-continue claritin-add flonase as directed UTI-UA negative-symptoms resolved Mrmbn-qpcexkvu-xxbecew with upset stomach and feels more anxious/jittery-likely [...] pain-UA negative-patient to see Dr Abraham for YOUTH DIRECTOR evaluation FINISH ANTIBIOTIC-START PREVENTATIVE ANTIBIOTIC AFTER YOU [...] like to be referred to someone in [place] instead of at - will look into referral to specialist in [place]. STOP THE CEFDINIR AND FLUCONAZOLE START CLARITIN [...] - pt has appt planned in November. steroid shot today start steroid taper tomorrow - hold your regular steroid until finished with the taper doxycycline - start if fever or if symptoms worsen - take a probiotic if you do start it - hold calcium pill if you start the doxycycline. . URI - Pt advised to increase fluids, vitamin C. Discussed natural and expected course of this diagnosis and need to alert me if symptoms do not follow expected course, or if any worse. RX sent to patient's pharmacy. Allergies - chronic - recommended pt to use allergy medication as prescribed. Pt has been counseled as to the appropriate use of the medication. Pt to call if allergy symptoms are not controlled with the medication. If using nasal spray, instructions as follows: Nasal spray- use twice daily, one spray per nostril twice daily, after 30 minutes, rinse out nose with saline spray.. Use opposite hand per nostril to spray in the nasal steroid allergy spray. Constipation - uncontrolled - I have discussed with the patient the need for adequate fiber and water intake to facilitate soft, easily passed stools. The pt noted understanding of our conversation. I have given the patient a recipe for "power pudding" - equal parts, bran flakes, prune juice, and apple sauce. The pt is to call if symptoms not improved on this regimen. Thigh high compression stockings. . Left leg [...] repeat UA today, infectious disease clinic in [email or web address] [id number] [phone] her [phone] to [phone] her [...]
--- OUTSIDE RECORDS SUMMARY | 2017-07-04 04:20 | XMS REPORT | CCD ---
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 Name Role Phone PP Unavailable CCM Unavailable Summary Purpose Interface Exchange Insurance Providers Payer name Policy type / Coverage type Covered constitution party ID Effective Begin Date Effective End Date WPS Medicare Part B Medicare Part B [id number] Unknown Unknown AARP Medicare Part B [id number] Unknown Unknown Family History Family History data not found Social History Social History Element Codes Description Effective Dates Marital status Unknown 04/30/[address]: 782008377 Never smoker 04/30/[address]: 017547778 Never drinks alcohol 04/30/2016 Allergies, Adverse Reactions, Alerts Substance Reaction Codes Entered Date Inactivated Date Status cephalexin rash RxNorm: 2231 10/28/2016 No Inactive Date Active ultram pruritis RxNorm: 19162 08/24/2016 No Inactive Date Active Past Medical [...] 06/15/2016 Unknown Pelvic and perineal pain ICD-9: [id number] ICD-10: R10.2 Active 08/03/2016 Unknown Vitamin B12 [...] 06/15/2016 Active Pelvic and perineal pain ICD-9: [id number] ICD-10: R10.2 08/03/2016 Active Vitamin B12 deficiency [...] Start Date Stop Date Status Fill Instructions Xanax 0.25 mg tablet RxNorm: 474235 1/2-1 Tablet(s) PO TID as needed 05/07/2017 07/05/2017 Active omeprazole 40 mg capsule,delayed release RxNorm: 991215 TAKE ONE CAPSULE BY MOUTH ONCE DAILY 05/06/2017 No Stop Date Active prednisone 10 mg tablet RxNorm: 302835 Tablet(s) PO UD 2017 No Stop Date Active 20,20,10,10 Tessalon Perles 100 mg capsule RxNorm: 945658 1-2 Capsule(s) PO TID as needed cough 04/23/2017 No Stop Date Active prednisone 10 mg tablet RxNorm: 297185 Tablet(s) PO 04/23/2017 No Stop Date Active 6, 5,4,3,2,1 doxycycline hyclate 100 mg capsule RxNorm: 9487118 1 Capsule(s) PO BID 04/23/2017 05/02/2017 Inactive Kenalog 40 mg/mL suspension for injection RxNorm: 9766952 1 Milliliter(s) Inj 04/23/2017 04/23/2017 Inactive Cipro 500 mg tablet RxNorm: 507934 1 Tablet(s) PO BID 201704/16/2017 Inactive Cipro 500 mg tablet RxNorm: 230171 1 Tablet(s) PO BID 201603/25/2017 Inactive hydrocodone 5 mg-acetaminophen 325 mg tablet RxNorm: 120356 1 Tablet(s) PO Q6 as needed 03/05/2017 03/19/2017 Inactive Diflucan 150 mg tablet RxNorm: 761240 1 Tablet(s) PO daily 03/05/2017 Inactive Diflucan 150 mg tablet RxNorm: 332233 1 Tablet(s) PO daily 02/28/2017 Inactive Seasonique 0.15 mg-30 mcg (84)/10 mcg(7) tablets,3 month dose pack RxNorm: 871621 1 Tablet(s) PO UD 02/24/2017 02/24/2017 Inactive losartan 50 mg tablet RxNorm: 757020 TAKE ONE TABLET BY MOUTH ONCE DAILY IN THE MORNING 02/23/2017 No Stop Date Active Diflucan 150 mg tablet RxNorm: 517634 1 Tablet(s) PO daily 09/201602/14/2017 Inactive Cipro 500 mg tablet RxNorm: 905566 1 Tablet(s) PO BID 201601/21/2017 Inactive Augmentin 500 mg-125 mg tablet RxNorm: 060146 1 Tablet(s) PO TID 12/30/2016 12/29/2016 Inactive Augmentin 500 mg-125 mg tablet RxNorm: 480739 1 Tablet(s) PO TID 12/30/2016 01/05/2017 Inactive hydrocodone 5 mg-acetaminophen 325 mg tablet RxNorm: 265667 1 Tablet(s) PO Q6 as needed 12/24/2016 01/07/2017 Inactive omeprazole 40 mg capsule,delayed release RxNorm: 492991 TAKE ONE CAPSULE BY MOUTH ONCE DAILY 12/08/2016 04/06/2017 Inactive Diflucan 150 mg tablet RxNorm: 635782 1 Tablet(s) PO daily 12/02/2016 Inactive Xanax 0.25 mg tablet RxNorm: 995674 1/2-1 Tablet(s) PO TID as needed 11/24/2016 01/20/2017 Inactive Xanax 0.25 mg tablet RxNorm: 568632 1/2-1 Tablet(s) PO TID as needed 11/24/2016 01/22/2017 Inactive sucralfate 1 gram tablet RxNorm: 874248 TAKE ONE TABLET BY MOUTH BEFORE MEALS AND AT BEDTIME 11/20/2016 12/19/2016 Inactive Diflucan 150 mg tablet RxNorm: 721229 1 Tablet(s) PO daily 11/22/2016 Inactive Levaquin 500 mg tablet RxNorm: 558585 1 Tablet(s) PO daily 10/201611/08/2016 Inactive Levaquin 500 mg tablet RxNorm: 635836 1 Tablet(s) PO daily 10/201611/15/2016 Inactive losartan 50 mg tablet RxNorm: 629787 1 Tablet(s) PO QAM 201602/22/2017 Inactive hydrocodone 5 mg-acetaminophen 325 mg tablet RxNorm: 666159 1 Tablet(s) PO Q6 as needed 10/26/2016 11/09/2016 Inactive Kenalog 40 mg/mL suspension for injection RxNorm: 7551556 1 Milliliter(s) Inj 10/08/2016 10/08/2016 Inactive prednisone 5 mg tablets in a dose pack RxNorm: 145472 1 Tablet(s) PO UD 10/08/2016 10/12/2016 Inactive 6-5-4-3-2-1 Diflucan 150 mg tablet RxNorm: 885828 1 Tablet(s) PO daily 06/201610/04/2016 Inactive Diflucan 150 mg tablet RxNorm: 305485 1 Tablet(s) PO daily 06/201610/09/2016 Inactive Lexapro 10 mg tablet RxNorm: 065698 1 Tablet(s) PO QHS 201601/26/2017 Inactive cefdinir 300 mg capsule RxNorm: 568836 1 Capsule(s) PO BID 10/07/2016 Inactive Lexapro 5 mg tablet RxNorm: 987020 1 Tablet(s) PO QHS 201609/28/2016 Inactive trimethoprim 100 mg tablet RxNorm: 769882 1 Tablet(s) PO daily 09/03/2016 03/01/2017 Inactive hydrocodone 5 mg-acetaminophen 325 mg tablet RxNorm: 305312 1 Tablet(s) PO Q6 as needed 08/28/2016 09/11/2016 Inactive Diflucan 150 mg tablet RxNorm: 568938 1 Tablet(s) PO QW as needed symptoms of thrush 08/26/2016 09/28/2016 Inactive Xanax 0.25 mg tablet RxNorm: 660953 1/2-1 Tablet(s) PO TID as needed 08/24/2016 10/20/2016 Inactive tramadol 50 mg tablet RxNorm: 106000 1-2 Tablet(s) PO Q6 as needed for pain 08/14/2016 09/28/2016 Inactive amoxicillin 500 mg capsule RxNorm: 720906 1 Capsule(s) PO TID 08/11/2016 08/20/2016 Inactive nystatin 100,000 unit/mL oral suspension RxNorm: 992787 5 Milliliter(s) PO QID 08/11/2016 08/17/2016 Inactive cefdinir 300 mg capsule RxNorm: 214809 1 Capsule(s) PO BID 12/201608/20/2016 Inactive losartan 50 mg tablet RxNorm: 690481 1 Tablet(s) PO QAM 201610/24/2016 Inactive fluconazole 200 mg tablet RxNorm: 692639 1 Tablet(s) PO daily 07/19/2016 07/28/2016 Inactive cefuroxime axetil 500 mg tablet RxNorm: 383011 1 Tablet(s) PO BID 07/19/2016 08/02/2016 Inactive Xanax 0.25 mg tablet RxNorm: 241659 1/2-1 Tablet(s) PO QDAY PRN 07/14/2016 08/23/2016 Inactive cyanocobalamin (vit B-12) 1,000 mcg/mL injection solution RxNorm: 940457 1 Milliliter(s) Inj 07/14/2016 07/14/2016 Inactive Diflucan 150 mg tablet RxNorm: 458959 1 Tablet(s) PO daily 10/201607/17/2016 Inactive Keflex 250 mg capsule RxNorm: 571463 1 Capsule(s) PO QHS 201607/13/2016 Inactive Lexapro 5 mg tablet RxNorm: 556013 1 Tablet(s) PO QHS TO START AFTER YOU ARE FINISHED WITH THE DIFLUCAN!! 06/30/2016 Inactive cefuroxime axetil 250 mg tablet RxNorm: 602303 1 Tablet(s) PO BID 06/26/2016 06/25/2016 Inactive ceftriaxone 500 mg solution for injection RxNorm: 1130127 1 Milliliter(s) Inj 06/26/2016 06/26/2016 Inactive cefuroxime axetil 250 mg tablet RxNorm: 624682 1 Tablet(s) PO BID 06/26/2016 07/05/2016 Inactive Diflucan 150 mg tablet RxNorm: 294207 1 Tablet(s) PO QW as needed symptoms of thrush 06/23/2016 08/02/2016 Inactive Zantac 150 mg tablet RxNorm: 020546 1 Tablet(s) PO daily 201607/14/2016 Inactive Xanax 0.25 mg tablet RxNorm: 696842 1/2-1 Tablet(s) PO HS PRN 06/05/2016 07/13/2016 Inactive Keflex 250 mg capsule RxNorm: 453230 1 Capsule(s) PO QHS as needed 06/05/2016 07/04/2016 Inactive Cipro 500 mg tablet RxNorm: 946409 1 Tablet(s) PO BID 201606/07/2016 Inactive ceftriaxone 500 mg solution for injection RxNorm: 1603566 1 Milliliter(s) Inj 05/28/2016 05/28/2016 Inactive cefdinir 300 mg capsule RxNorm: 643368 1 Capsule(s) PO BID 05/31/2016 Inactive metronidazole 500 mg tablet RxNorm: 967792 1 Tablet(s) PO BID 05/28/2016 06/03/2016 Inactive sucralfate 1 gram tablet RxNorm: 417540 1 Tablet(s) PO AC & HS 05/21/2016 07/20/2016 Inactive sucralfate 1 gram tablet RxNorm: 600327 1 Tablet(s) PO AC & HS 05/21/2016 05/20/2016 Inactive omeprazole 40 mg capsule,delayed release RxNorm: 484137 1 Capsule(s) PO daily 05/21/2016 08/18/2016 Inactive omeprazole 40 mg capsule,delayed release RxNorm: 467134 1 Capsule(s) PO daily 05/21/2016 05/20/2016 Inactive losartan 50 mg tablet RxNorm: 840563 1 Tablet(s) PO QAM 201607/26/2016 Inactive latanoprost 0.005 % eye drops RxNorm: 694230 1 Drop(s) OPH daily No Start Date Active Culturelle 15 billion cell sprinkle capsule RxNorm: 7172733 1 Capsule(s) PO TID No Start Date Active Calcium 500 + D (D3) oral RxNorm: 868302 oral No Start Date Active cranberry 500 mg capsule RxNorm: 840800 1 Capsule(s) PO daily No Start Date Active Ocuvite Lutein and Zeaxanthin 60 mg-30 unit-15 mg-2 mg-6 mg capsule RxNorm: 513332 1 Capsule(s) PO daily No Start Date Active Pyridium 200 mg tablet RxNorm: 6401685 1 Tablet(s) PO TID as needed No Start Date Active Toviaz 4 mg tablet,extended release RxNorm: 074862 1 Tablet(s) PO daily No Start Date Active Klor-Con 10 mEq tablet,extended release RxNorm: 361477 1 Tablet(s) PO BID No Start Date Active Estrace 0.01% (0.1 mg/gram) vaginal cream RxNorm: 800786 1 Application VAG TIW No Start Date 07/13/2016 Inactive allopurinol 300 mg tablet RxNorm: 572284 1 Tablet(s) PO daily No Start Date 06/22/2016 Inactive triamterene 37.5 mg-hydrochlorothiazide 25 mg tablet RxNorm: 794584 1 Tablet(s) PO daily No Start Date 10/07/2016 Inactive Seasonique 0.15 mg-30 mcg (84)/10 mcg(7) tablets,3 month dose pack RxNorm: 633859 1 Tablet(s) PO UD No Start Date 2016 Inactive hydrocodone 5 mg-acetaminophen 325 mg tablet RxNorm: 304754 1 Tablet(s) PO as needed No Start Date 08/27/2016 Inactive meloxicam 7.5 mg tablet RxNorm: 620310 1 Tablet(s) PO daily as needed No Start Date 10/07/2016 Inactive Multivitamins FC tablet RxNorm: 1 Tablet(s) PO daily No Start Date 10/07/2016 Inactive Fish Oil 1,000 mg capsule RxNorm: 1 Capsule(s) PO BID No Start Date 05/27/2016 Inactive tramadol 50 mg tablet RxNorm: 508001 1-2 Tablet(s) PO Q6 as needed for pain No Start Date 08/13/2016 Inactive Medication Administered Medication Codes Instructions Start Date Status Kenalog 40 mg/mL suspension for injection RxNorm: 6155703 1Milliliter 10/08/2016 No longer Active cyanocobalamin (vit B-12) 1,000 mcg/mL injection solution RxNorm: 976711 1Milliliter 07/14/2016 No longer Active ceftriaxone 500 mg solution for injection RxNorm: 9646984 1Milliliter 06/26/2016 No longer Active ceftriaxone 500 mg solution for injection RxNorm: 1004974 1Milliliter 05/28/2016 No longer Active Immunizations Vaccine [...] Pelvic and perineal pain ICD-10: R10.2 ICD-9: FCC3883 08/11/2016 Hypo-osmolality and hyponatremia ICD-10: E87.1 ICD-9: [...] Item Item Code Result Date Culture Urine [id number] URINE CULTURE SEE NOTES 04/06/2017 Culture Urine [id number] Continued Results 04/06/2017 Urine Culture Ucult Complete >100,000 col/ml aerobic growth sent to ref lab 04/02/2017 Culture Urine [id number] URINE CULTURE SEE NOTES 03/22/2017 Culture Urine [id number] Continued Results 03/22/2017 Urine Culture Ucult Complete >100,000 col/ml aerobic growth sent to ref lab 03/20/2017 Comp Metabolic Yau070 NA 131 mEq/L 03/19/2017 Comp Metabolic Wgs264 K 4.0 mEq/L 03/19/2017 Comp Metabolic Ziw390 CL 93 mEq/L 03/19/2017 Comp Metabolic Ylb548 CO2 28.0 mEq/L 03/19/2017 Comp Metabolic Gnm049 ANION GAP 14 03/19/2017 Comp Metabolic Imf769 GLUCOSE 94 mg/dL 03/19/2017 Comp Metabolic Ool402 Creat 0.8 mg/dL 03/19/2017 Comp Metabolic Ksd572 eGFR 69 ml/min/1.73m2 03/19/2017 Comp Metabolic Veh576 BUN 16 mg/dL 03/19/2017 Comp Metabolic Psa710 B/C Ratio 19.3 Ratio 03/19/2017 Comp Metabolic Ncp441 CALCIUM 9.5 mg/dL 03/19/2017 Comp Metabolic Vrj982 ALK PHOS 54 U/L 03/19/2017 Comp Metabolic Kky402 AST(SGOT) 22 U/L 03/19/2017 Comp Metabolic Vvh989 ALT(SGPT) 18 U/L 03/19/2017 Comp Metabolic Ujx004 BILI T 0.4 mg/dL 03/19/2017 Comp Metabolic Dsq423 ALBUMIN 4.2 g/dL 03/19/2017 Comp Metabolic Dyr156 TPRO 6.2 g/dL 03/19/2017 Comp Metabolic Zhc507 GLOB 2.0 g/dL 03/19/2017 Comp Metabolic Oix463 A/G Ratio 2.2 Ratio 03/19/2017 Comp Metabolic Exq215 Osmo 264 mOsmo 03/19/2017 Cbc With Differential Ord2 WBC 12.07 K/ul 03/19/2017 Cbc With Differential Ord2 RBC 3.94 M/ul 03/19/2017 Cbc With Differential Ord2 HGB 13.5 g/dl 03/19/2017 Cbc With Differential Ord2 HCT 39.7 % 03/19/2017 Cbc With Differential Ord2 Neut% 76.3 % 03/19/2017 Cbc With Differential Ord2 Lymph% 12.3 % 03/19/2017 Cbc With Differential Ord2 MCV 100.8 fl 03/19/2017 Cbc With Differential Ord2 MCH 34.3 pg 03/19/2017 Cbc With Differential Ord2 [place]% 10.3 % 03/19/2017 Cbc With Differential Ord2 Eos% 0.8 % 03/19/2017 Cbc With Differential Ord2 MCHC 34.0 pg 03/19/2017 Cbc With Differential Ord2 Baso% 0.3 % 03/19/2017 Cbc With Differential Ord2 PLT 267 K/ul 03/19/2017 Cbc With Differential Ord2 RDW 12.7 % 03/19/2017 Cbc With Differential Ord2 Neut ABS# 9.20 K/ul 03/19/2017 Cbc With Differential Ord2 Lymph ABS# 1.49 K/ul 03/19/2017 Cbc With Differential Ord2 [place] ABS# 1.2 K/ul 03/19/2017 Cbc With Differential [...] Ord15 CALCIUM 9.3 mg/dL 08/11/2016 Culture Urine [id number] URINE CULTURE SEE NOTES 08/10/2016 Culture Urine [id number] Continued Results 08/10/2016 Urine Culture Ucult Complete >100,000 col/ml aerobic growth sent to ref lab 08/07/2016 Comp Metabolic Pae581 NA 132 mEq/L 07/10/2016 Comp Metabolic Ytq841 K 3.9 mEq/L 07/10/2016 Comp Metabolic Tmm331 CL 94 mEq/L 07/10/2016 Comp Metabolic Rsd624 CO2 28.0 mEq/L 07/10/2016 Comp Metabolic Fol319 ANION GAP 14 07/10/2016 Comp Metabolic Jqt171 GLUCOSE 96 mg/dL 07/10/2016 Comp Metabolic Tva356 Creat 0.8 mg/dL 07/10/2016 Comp Metabolic Ncx847 eGFR 70 ml/min/1.73m2 07/10/2016 Comp Metabolic Kxj039 BUN 22 mg/dL 07/10/2016 Comp Metabolic Qvn632 B/C Ratio 26.8 Ratio 07/10/2016 Comp Metabolic Dso679 CALCIUM 10.2 mg/dL 07/10/2016 Comp Metabolic Vsb842 ALK PHOS 50 U/L 07/10/2016 Comp Metabolic Niv441 AST(SGOT) 21 U/L 07/10/2016 Comp Metabolic Tbw253 ALT(SGPT) 19 U/L 07/10/2016 Comp Metabolic Zor895 BILI T 0.5 mg/dL 07/10/2016 Comp Metabolic Ryv094 ALBUMIN 4.2 g/dL 07/10/2016 Comp Metabolic Tzd536 TPRO 6.6 g/dL 07/10/2016 Comp Metabolic Ydi395 GLOB 2.4 g/dL 07/10/2016 Comp Metabolic Lqu373 A/G Ratio 1.8 Ratio 07/10/2016 Comp Metabolic Egg584 Osmo 268 mOsmo 07/10/2016 Wet Prep [id number] Yeast Vaginal TNP:Duplicate Order 2016 Wet Prep [id number] Trichomonas TNP:Duplicate Order 07/10/2016 Cbc With Differential Ord2 WBC 7.98 K/ul 07/10/2016 Cbc With Differential Ord2 RBC 4.05 M/ul 07/10/2016 Cbc With Differential Ord2 HGB 14.0 g/dl 07/10/2016 Cbc With Differential Ord2 HCT 40.5 % 07/10/2016 Cbc With Differential Ord2 Neut% 71.3 % 07/10/2016 Cbc With Differential Ord2 Lymph% 16.9 % 07/10/2016 Cbc With Differential Ord2 MCV 100.0 fl 07/10/2016 Cbc With Differential Ord2 [place]% 10.7 % 07/10/2016 Cbc With Differential Ord2 MCH 34.6 pg 07/10/2016 Cbc With Differential Ord2 MCHC 34.6 pg 07/10/2016 Cbc With Differential Ord2 Eos% 0.6 % 07/10/2016 Cbc With Differential Ord2 Baso% 0.5 % 07/10/2016 Cbc With Differential Ord2 PLT 269 K/ul 07/10/2016 Cbc With Differential Ord2 Neut ABS# 5.69 K/ul 07/10/2016 Cbc With Differential Ord2 RDW 13.0 % 07/10/2016 Cbc With Differential Ord2 Lymph ABS# 1.35 K/ul 07/10/2016 Cbc With Differential Ord2 [place] ABS# 0.9 K/ul 07/10/2016 Cbc With Differential Ord2 Eos ABS# 0.1 K/ul 07/10/2016 Cbc With Differential Ord2 Baso ABS# 0.0 K/ul 07/10/2016 Wet Prep [id number] Yeast Vaginal None 07/10/2016 Wet Prep [id number] Trichomonas None 07/10/2016 Comp Metabolic Bqc315 NA 131 mEq/L 07/03/2016 Comp Metabolic Hmj575 K 4.4 mEq/L 07/03/2016 Comp Metabolic Tqy016 CL 92 mEq/L 07/03/2016 Comp Metabolic Hqi833 CO2 28.0 mEq/L 07/03/2016 Comp Metabolic Krx931 ANION GAP 15 07/03/2016 Comp Metabolic Spf290 GLUCOSE 96 mg/dL 07/03/2016 Comp Metabolic Ogi358 Creat 0.8 mg/dL 07/03/2016 Comp Metabolic Awz147 eGFR 76 ml/min/1.73m2 07/03/2016 Comp Metabolic Gtr228 BUN 22 mg/dL 07/03/2016 Comp Metabolic Imy702 B/C Ratio 28.9 Ratio 07/03/2016 Comp Metabolic Sgf041 CALCIUM 10.3 mg/dL 07/03/2016 Comp Metabolic Jov134 ALK PHOS 49 U/L 07/03/2016 Comp Metabolic Exz341 AST(SGOT) 21 U/L 07/03/2016 Comp Metabolic Kav990 ALT(SGPT) 19 U/L 07/03/2016 Comp Metabolic Qse762 BILI T 0.5 mg/dL 07/03/2016 Comp Metabolic Kch649 ALBUMIN 4.3 g/dL 07/03/2016 Comp Metabolic Ccv443 TPRO 6.7 g/dL 07/03/2016 Comp Metabolic Jch849 GLOB 2.4 g/dL 07/03/2016 Comp Metabolic Lpi452 A/G Ratio 1.8 Ratio 07/03/2016 Comp Metabolic Xns919 Osmo 266 mOsmo 07/03/2016 Cbc With Differential Ord2 WBC 8.91 K/ul 07/03/2016 Cbc With Differential Ord2 RBC 4.16 M/ul 07/03/2016 Cbc With Differential Ord2 HGB 14.1 g/dl 07/03/2016 Cbc With Differential Ord2 HCT 41.2 % 07/03/2016 Cbc With Differential Ord2 Neut% 72.5 % 07/03/2016 Cbc With Differential Ord2 MCV 99.0 fl 07/03/2016 Cbc With Differential Ord2 Lymph% 15.7 % 07/03/2016 Cbc With Differential Ord2 [place]% 10.3 % 07/03/2016 Cbc With Differential Ord2 MCH 33.9 pg 07/03/2016 Cbc With Differential Ord2 Eos% 0.7 % 07/03/2016 Cbc With Differential Ord2 MCHC 34.2 pg 07/03/2016 Cbc With Differential Ord2 Baso% 0.8 % 07/03/2016 Cbc With Differential Ord2 PLT 291 K/ul 07/03/2016 Cbc With Differential Ord2 Neut ABS# 6.46 K/ul 07/03/2016 Cbc With Differential Ord2 RDW 13.5 % 07/03/2016 Cbc With Differential Ord2 Lymph ABS# 1.40 K/ul 07/03/2016 Cbc With Differential Ord2 [place] ABS# 0.9 K/ul 07/03/2016 Cbc With Differential [...] Ord62 ANION GAP 12 06/11/2016 Comp Metabolic Bek774 NA 127 mEq/L 06/05/2016 Comp Metabolic Crh385 K 4.0 mEq/L 06/05/2016 Comp Metabolic Kzq500 CL 94 mEq/L 06/05/2016 Comp Metabolic Vah314 CO2 26.0 mEq/L 06/05/2016 Comp Metabolic Tns550 ANION GAP 11 06/05/2016 Comp Metabolic Gtj361 GLUCOSE 101 mg/dL 06/05/2016 Comp Metabolic Ynt446 Creat 0.7 mg/dL 06/05/2016 Comp Metabolic Trr675 eGFR 80 ml/min/1.73m2 06/05/2016 Comp Metabolic Npc908 BUN 15 mg/dL 06/05/2016 Comp Metabolic Roi072 B/C Ratio 20.5 Ratio 06/05/2016 Comp Metabolic Alp704 CALCIUM 9.2 mg/dL 06/05/2016 Comp Metabolic Qww345 ALK PHOS 43 U/L 06/05/2016 Comp Metabolic Rze529 AST(SGOT) 32 U/L 06/05/2016 Comp Metabolic Tfj283 ALT(SGPT) 43 U/L 06/05/2016 Comp Metabolic Pew701 BILI T 0.4 mg/dL 06/05/2016 Comp Metabolic Eup841 ALBUMIN 4.3 g/dL 06/05/2016 Comp Metabolic Bmr494 TPRO 6.2 g/dL 06/05/2016 Comp Metabolic Opi237 GLOB 2.0 g/dL 06/05/2016 Comp Metabolic Qvo952 A/G Ratio 2.2 Ratio 06/05/2016 Comp Metabolic Jxc954 Osmo 256 mOsmo 06/05/2016 Cbc With Differential [...] 13.6 % 06/05/2016 Cbc With Differential Ord2 [place]% 11.1 % 06/05/2016 Cbc With Differential Ord2 MCH 34.8 pg 06/05/2016 Cbc With Differential Ord2 Eos% 0.5 % 06/05/2016 Cbc With Differential Ord2 MCHC 36.0 pg 06/05/2016 Cbc With Differential Ord2 PLT 283 K/ul 06/05/2016 Cbc With Differential Ord2 Baso% 0.4 % 06/05/2016 Cbc With Differential Ord2 RDW 13.9 % 06/05/2016 Cbc With Differential Ord2 Neut ABS# 5.66 K/ul 06/05/2016 Cbc With Differential Ord2 Lymph ABS# 1.03 K/ul 06/05/2016 Cbc With Differential Ord2 [place] ABS# 0.8 K/ul 06/05/2016 Cbc With Differential Ord2 Eos ABS# 0.0 K/ul 06/05/2016 Cbc With Differential Ord2 Baso ABS# 0.0 K/ul 06/05/2016 Culture Urine [id number] URINE CULTURE SEE NOTES 06/01/2016 Culture Urine [id number] Continued Results 06/01/2016 Urine Culture Ucult Complete [...] distress 12/30/2016 None Full Exam - General 1995 Constitutional general appearance Overall: well nourished 12/30/2016 [...] Codes Date URINALYSIS NONAUTO W/O SCOPE CPT-4: 39714 04/01/2017 URINALYSIS NONAUTO W/O SCOPE CPT-4: 44009 03/05/2017 FLU VACC PRSV FREE INC ANTIG CPT-4: 17079 12/18/2016 ADMIN INFLUENZA VIRUS VAC CPT-4: G0008 12/18/2016 URINALYSIS NONAUTO W/O SCOPE CPT-4: 87305 11/26/2016 URINALYSIS NONAUTO W/O SCOPE CPT-4: 16633 11/06/2016 URINALYSIS NONAUTO W/O SCOPE CPT-4: 96613 10/16/2016 TRIAMCINOLONE ACET INJ NOS CPT-4: J3301 10/08/2016 URINALYSIS NONAUTO W/O SCOPE CPT-4: 91351 09/03/2016 URINALYSIS NONAUTO W/O SCOPE CPT-4: 37958 08/24/2016 URINALYSIS NONAUTO W/O SCOPE CPT-4: 41865 08/06/2016 THER/PROPH/DIAG INJ SC/IM CPT-4: 98932 07/14/2016 VITAMIN B12 INJECTION CPT-4: J3420 07/14/2016 URINALYSIS NONAUTO W/O SCOPE CPT-4: 53338 07/03/2016 THER/PROPH/DIAG INJ SC/IM CPT-4: 59142 06/26/2016 ROCEPHIN, PER 250 MG CPT-4: J0696 06/26/2016 URINALYSIS NONAUTO W/O SCOPE CPT-4: 18059 06/23/2016 URINALYSIS NONAUTO W/O SCOPE CPT-4: 42673 06/11/2016 URINALYSIS NONAUTO W/O SCOPE CPT-4: 81777 05/28/2016 THER/PROPH/DIAG INJ SC/IM CPT-4: 12616 05/28/2016 ROCEPHIN, PER 250 MG CPT-4: J0696 05/28/2016 REMOVAL OF IMPACTED WAX CPT-4: G0268 05/06/2016 Vital Signs Date Vital 03/19/2017 Blood Pressure 1: 144/76 Code : 8480-6 BMI: 26.3 Code : 95842-8 Heart Rate 1 : 102 bpm Height: 5'4" SpO2: 98% Temperature: 36.8 (C) / 98.3 (F) Weight: 153 lbs 03/08/2017 Blood Pressure 1: 136/80 Code : 8480-6 BMI: 26.9 Code : 02315-5 Heart Rate 1 : 76 bpm Height: 5'4" SpO2: 96% Weight: 157 lbs 02/02/2017 Blood Pressure 1: 148/68 Code : 8480-6 BMI: 26.9 Code : 62286-2 Heart Rate 1 : 76 bpm Height: 5'4" SpO2: 97% Weight: 157 lbs 01/15/2017 Blood Pressure 1: 142/76 Code : 8480-6 BMI: 26.9 Code : 85825-9 Heart Rate 1 : 86 bpm Height: 5'4" SpO2: 97% Weight: 157 lbs 12/30/2016 Blood Pressure 1: 140/76 Code : 8480-6 BMI: 26.9 Code : 07874-3 Heart Rate 1 : 84 bpm Height: 5'4" SpO2: 97% Weight: 157 lbs 12/22/2016 Blood Pressure 1: 130/78 Code : 8480-6 BMI: 26.9 Code : 86499-4 Heart Rate 1 : 80 bpm Height: 5'4" SpO2: 97% Weight: 157 lbs 12/18/2016 BMI: 26.9 Code: 04500-4 Height: 5'4" Weight: 157 lbs 11/20/2016 Blood Pressure 1: 134/60 Code : 8480-6 BMI: 25.9 Code : 11710-3 Heart Rate 1 : 80 bpm Height: 5'4" SpO2: 97% Weight: 151 lbs 11/16/2016 BMI: 25.6 Code: 66731-7 Heart Rate 1: 74 bpm Height: 5'4" SpO2: 97% Weight: 149 lbs 10/28/2016 Blood Pressure 1: 128/70 Code : 8480-6 BMI: 25.7 Code : 47199-7 Heart Rate 1 : 70 bpm Height: 5'4" SpO2: 96% Weight: 150 lbs 10/13/2016 Blood Pressure 1: 130/78 Code : 8480-6 Heart Rate 1: 69 bpm Height: 5'4" SpO2: 98% 10/08/2016 Blood Pressure 1: 122/70 Code : 8480-6 BMI: 25.6 Code : 40255-5 Heart Rate 1 : 79 bpm Height: 5'4" SpO2: 97% Temperature: 37.0 (C) / 98.6 (F) Weight: 149 lbs 09/29/2016 Blood Pressure 1: 124/70 Code : 8480-6 BMI: 25.4 Code : 80729-0 Heart Rate 1 : 74 bpm Height: 5'4" SpO2: 94% Weight: 148 lbs 09/03/2016 Blood Pressure 1: 120/68 Code : 8480-6 BMI: 24.7 Code : 25451-7 Heart Rate 1 : 59 bpm Height: 5'4" SpO2: 97% Weight: 144 lbs 08/24/2016 Blood Pressure 1: 128/74 Code : 8480-6 BMI: 24.7 Code : 26851-7 Heart Rate 1 : 75 bpm Height: 5'4" SpO2: 97% Weight: 144 lbs 08/11/2016 Blood Pressure 1: 142/76 Code : 8480-6 BMI: 24.9 Code : 01346-2 Heart Rate 1 : 77 bpm Height: 5'4" SpO2: 96% Weight: 145 lbs 08/03/2016 Blood Pressure 1: 142 Code : 8480-6 BMI: 25.1 Code : 12292-1 Heart Rate 1 : 75 bpm Height: 5'4" SpO2: 97% Temperature: 36.9 (C) / 98.5 (F) Weight: 146 lbs 07/27/2016 Blood Pressure 1: 158/80 Code : 8480-6 BMI: 25.1 Code : 74223-6 Heart Rate 1 : 72 bpm Height: 5'4" SpO2: 98% Weight: 146 lbs 07/21/2016 Blood Pressure 1: 144 Code : 8480-6 BMI: 25.1 Code : 28593-1 Heart Rate 1 : 80 bpm Height: 5'4" SpO2: 94% Temperature: 37.3 (C) / 99.2 (F) Weight: 146 lbs 07/14/2016 Blood Pressure 1: 12874 Code : 8480-6 BMI: 25.1 Code : 41153-4 Heart Rate 1 : 79 bpm Height: 5'4" SpO2: 97% Temperature: 37.2 (C) / 98.9 (F) Weight: 146 lbs 8 oz 07/10/2016 Blood Pressure 1: 148/78 Code : 8480-6 BMI: 25.1 Code : 88217-2 Heart Rate 1 : 82 bpm Height: 5'4" SpO2: 96% Temperature: 37.2 (C) / 99.0 (F) Weight: 146 lbs 8 oz 07/03/2016 Blood Pressure 1: 134/76 Code : 8480-6 Heart Rate 1: 79 bpm Height: 5'4" SpO2: 98% Temperature: 36.9 (C) / 98.4 (F) 06/30/2016 Blood Pressure 1: 138/78 Code : 8480-6 BMI: 25.1 Code : 30967-8 Heart Rate 1 : 90 bpm Height: 5'4" SpO2: 97% Weight: 146 lbs 06/23/2016 Blood Pressure 1: 132/58 Code : 8480-6 BMI: 25.7 Code : 53196-0 Heart Rate 1 : 85 bpm Height: 5'4" SpO2: 97% Weight: 150 lbs 06/15/2016 Blood Pressure 1: 134/62 Code : 8480-6 BMI: 26.4 Code : 09425-8 Heart Rate 1 : 75 bpm Height: 5'4" SpO2: 95% Weight: 154 lbs 06/05/2016 Blood Pressure 1: 156/80 Code : 8480-6 BMI: 26.4 Code : 55841-1 Heart Rate 1 : 92 bpm Height: 5'4" SpO2: 98% Weight: 154 lbs 06/01/2016 Blood Pressure 1: 135/80 Code : 8480-6 Heart Rate 1: 95 bpm SpO2: 97% Temperature: 37.1 (C) / 98.8 (F) 05/28/2016 Blood Pressure 1: 140/80 Code : 8480-6 BMI: 26.1 Code : 06478-9 Heart Rate 1 : 89 bpm Height: 5'4" SpO2: 96% Weight: 152 lbs 05/11/2016 Blood Pressure 1: 154/86 Code : 8480-6 Heart Rate 1: 89 bpm Height: 5'4" SpO2: 95% Weight: 04/30/2016 Blood Pressure 1: 142/72 Code : 8480-6 BMI: 26.3 Code : 01154-1 Heart Rate 1 : 87 bpm Height: [...] data Encounters Encounter Performer Location Codes Date 20406 EST. PATIENT, LEVEL III Diagnosis: Dysuria[ICD10: R30.0] Diagnosis: Other malaise[ICD10: R53.81] Diagnosis: Other fatigue[ICD10: R53.83] Diagnosis: Generalized anxiety disorder[ICD10: F41.1] Meli Amador MD, [facility] CPT-4: 84635 03/19/2017 83455 EST. PATIENT, LEVEL III Diagnosis: Left lower quadrant pain[ICD10: R10.32] Meli Amador MD, [facility] CPT-4: 77098 03/08/2017 40259 EST. PATIENT, LEVEL III Diagnosis: Dysuria[ICD10: R30.0] Diagnosis: Generalized anxiety disorder[ICD10: F41.1] Meli Amador MD, [facility] CPT-4: 23416 02/02/2017 00899 EST. PATIENT, LEVEL III Diagnosis: Generalized anxiety disorder[ICD10: F41.1] Diagnosis: Urinary tract infection, site not specified[ICD10: N39.0] Meli Amador MD, [facility] CPT-4: 35029 01/15/2017 95768 EST. PATIENT, LEVEL IV Diagnosis: Dysuria[ICD10: R30.0] Diagnosis: Rash and other nonspecific skin eruption[ICD10: R21] Meli Amador MD, [facility] CPT-4: 84652 12/30/2016 19166 EST. PATIENT, LEVEL IV Diagnosis: Localized edema[ICD10: R60.0] Diagnosis: Pain in left lower leg[ICD10: M79.662] Diagnosis: Dysuria[ICD10: R30.0] Meli Amador MD, [facility] CPT-4: 20832 12/22/2016 70059 EST. PATIENT, LEVEL IV Diagnosis: 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[ICD10: I83.92] Diagnosis: Urinary tract infection, site not specified[ICD10: N39.0] Diagnosis: Encounter for immunization[ICD10: Z23] Meli Amador MD, [facility] CPT-4: 32395 12/18/2016 ([id number]) 69048 EST. PATIENT, LEVEL III Diagnosis: 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[ICD10: I83.92] Diagnosis: Urinary tract infection, site not specified[ICD10: N39.0] Josiane Amador MD , [facility] CPT-4: 44657 11/20/2016 90747 EST. PATIENT, LEVEL III Diagnosis: Dysuria[ICD10: R30.0] Meli Amador MD, [facility] CPT-4: 67582 11/16/2016 ([id number]) 88416 EST. PATIENT, LEVEL III Diagnosis: Generalized anxiety disorder[ICD10: F41.1] Diagnosis: Urinary tract infection, site not specified[ICD10: N39.0] Mera Amador MD, [facility] CPT-4: 99316 10/28/2016 ([id number]) 88958 EST. 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 PATIENT, LEVEL III Diagnosis: Dysuria[ICD10: R30.0] Diagnosis: Essential (primary) hypertension[ICD10: I10] Mera Amador MD, [facility] CPT-4: 87908 09/29/2016 ([id number]) 10991 EST. PATIENT, LEVEL III Diagnosis: Generalized anxiety disorder[ICD10: F41.1] Diagnosis: Dysuria[ICD10: R30.0] Diagnosis: Personal history of urinary (tract) infections[ICD10: Z87.440] Mera Amador MD, [facility] CPT-4: 20915 09/03/2016 ([id number]) 34771 EST. PATIENT, LEVEL IV Diagnosis: Essential (primary) hypertension[ICD10: I10] Diagnosis: Generalized anxiety disorder[ICD10: F41.1] Diagnosis: Dysuria[ICD10: R30.0] Mera Amador MD, [facility] CPT-4: 22765 08/24/2016 62834 EST. PATIENT, LEVEL IV Diagnosis: Hypo-osmolality and hyponatremia[ICD10: E87.1] Diagnosis: Generalized anxiety disorder[ICD10: F41.1] Diagnosis: Pelvic and perineal pain[ICD10: R10.2] Diagnosis: Candidal stomatitis[ICD10: B37.0] Meli Amador MD, [facility] CPT -4: 20486 08/11/2016 ([id number]) 26665 EST. PATIENT, LEVEL III Diagnosis: Generalized anxiety disorder[ICD10: F41.1] Diagnosis: Pelvic and perineal pain[ICD10: R10.2] Josiane Amador MD, [facility] CPT-4: 82913 08/03/2016 58307 EST. PATIENT, LEVEL IV Diagnosis: Generalized anxiety disorder[ICD10: F41.1] Diagnosis: Pelvic and perineal pain[ICD10: R10.2] Diagnosis: Gastro-esophageal reflux disease without esophagitis[ICD10: K21.9] Meli Amador MD, [facility] CPT-4: 89688 07/27/2016 ([id number]) 45392 EST. PATIENT, LEVEL III Diagnosis: Urinary tract infection, site not specified[ICD10: N39.0] Diagnosis: Gastro-esophageal reflux disease without esophagitis[ICD10: K21.9] Diagnosis: Generalized anxiety disorder[ICD10: F41.1] Josiane Amador MD, [facility] CPT-4: 65159 07/21/2016 ([id number]) 88471 EST. PATIENT, LEVEL III Diagnosis: Generalized anxiety disorder[ICD10: F41.1] Diagnosis: Essential (primary) hypertension[ICD10: I10] Diagnosis: Vitamin B12 deficiency anemia, unspecified[ICD10: D51.9] Josiane Amador MD , [facility] CPT-4: 21510 07/14/2016 ([id number]) 31340 EST. PATIENT, LEVEL IV Diagnosis: Hypo-osmolality and hyponatremia[ICD10: E87.1] Diagnosis: Other specified noninflammatory disorders of vagina[ICD10: N89.8] Diagnosis: Essential (primary) hypertension[ICD10: I10] Diagnosis: Major depressive disorder, recurrent, mild[ICD10: F33.0] Josiane Amador MD , [facility] CPT-4: 48830 07/10/2016 ([id number]) 85001 EST. PATIENT, LEVEL III Diagnosis: Urinary tract infection, site not specified[ICD10: N39.0] Diagnosis: Hypo-osmolality and hyponatremia[ICD10: E87.1] Josiane Amador MD, [facility] CPT-4: 28094 07/03/2016 01803 EST. PATIENT, LEVEL IV Diagnosis: Generalized anxiety disorder[ICD10: F41.1] Diagnosis: Major depressive disorder, recurrent, mild[ICD10: F33.0] Diagnosis: Hypo-osmolality and hyponatremia[ICD10: E87.1] Meli Amador MD, [facility] CPT-4: 94284 06/30/2016 ([id number]) 18784 EST. PATIENT, LEVEL III Diagnosis: Hypo-osmolality and hyponatremia[ICD10: E87.1] Diagnosis: Dysuria[ICD10: R30.0] Diagnosis: Essential (primary) hypertension[ICD10: I10] Mera Amador MD, [facility] CPT-4: 49773 06/23/2016 93842 EST. PATIENT, LEVEL III Diagnosis: Candidal stomatitis[ICD10: B37.0] Diagnosis: Gastro-esophageal reflux disease without esophagitis[ICD10: K21.9] Diagnosis: Hypo-osmolality and hyponatremia[ICD10: E87.1] Meli Amador MD, [facility] CPT-4: 89547 06/15/2016 ([id number]) 60704 EST. PATIENT, LEVEL III Diagnosis: Essential (primary) hypertension[ICD10: I10] Diagnosis: Hypo-osmolality and hyponatremia[ICD10: E87.1] Diagnosis: Urinary tract infection, site not specified[ICD10: N39.0] Josiane Amador MD , [facility] CPT-4: 45156 06/05/2016 ([id number]) 66627 EST. PATIENT, LEVEL III Diagnosis: Urinary tract infection, site not specified[ICD10: N39.0] Josiane Amador MD , [facility] CPT-4: 95758 06/01/2016 ([id number]) 19428 EST. PATIENT, LEVEL IV Diagnosis: Hypo-osmolality and hyponatremia[ICD10: E87.1] Diagnosis: Essential (primary) hypertension[ICD10: I10] Diagnosis: Hyperuricemia without signs of inflammatory arthritis and tophaceous disease[ICD10: E79.0] Diagnosis: Urinary tract infection, site not specified[ICD10: N39.0] [facility] CPT-4: 26566 05/28/2016 ([id number]) 65930 EST. PATIENT, LEVEL III Diagnosis: Pain in left toe(s)[ICD10: M79.675] Diagnosis: Tinea unguium[ICD10: B35.1] Josiane Amador MD, [facility] CPT-4: 54781 05/11/2016 ([id number]) OFFICE VISIT, NEW - LEVEL 4 Diagnosis: Essential (primary) hypertension[ICD10: I10] Diagnosis: Hypo-osmolality and hyponatremia[ICD10: E87.1] Mera Amador MD, [facility] CPT-4: 05944 04/30/2016 Plan of Care Planned Activity Notes Codes Status Date Appointment: [phone] [place] ([facility] [place] Complex 04/30/2017 Appointment: Lab Draw 04/29/2017 Appointment: [phone] [place] ([place]) Complex 04/29/2017 Appointment: [phone] [place] ([place]) Complex 04/23/2017 Appointment: Lab [...] medications. 03/19/2017 Appointment: Meli Malone WPtel: [phone] [facility] (30 min) Complex 03/19/2017 Patient Education: [...] or concerns. 03/08/2017 Appointment: Meli Malone WPtel: [facility] [place] ([place] 03/08/2017 Patient Education: Patient Medication Summary Completed [...] current medications. 02/02/2017 Appointment: Meli Malone WPtel: [facility] [place] ([place]) Complex 02/02/2017 Patient Education: Patient [...] warmth, discharge. 12/30/2016 Appointment: Meli Malone WPtel: [facility] [place] ([place]) Complex 12/30/2016 Patient Education: [...] repeat UA today, infectious disease clinic in [place] is reviewing her case to make her an appointment, no other changes at this time. 12/22/2016 Appointment: [phone] [place] (15 min) Moderate 12/22/2016 Patient Education: Patient Medication Summary Completed 12/22/2016 Care Plan: VASCULAR STUDY Pending 12/22/2016 Care Plan: Referral Order SNOMED-CT : [id number] Pending 12/20/2016 Visit Plan: Varicose veins - [...] like to be referred to someone in [place] instead of at - will look into referral to specialist in [place]. 12/18/2016 Appointment: Meli Malone WPtel: [phone] [facility] (15 min) Moderate 12/18/2016 Patient Education: Patient Medication Summary Completed 12/18/2016 Appointment: Lab Draw 12/04/2016 Appointment: Meli Malone WPtel: [facility] (30 min) Complex 11/27/2016 Visit Plan: UA negative - pt was feeling better on the diflucan - will refill RX x 1 - pt has an appointment with Urogynecology on . 11/26/2016 Appointment: Lab Draw 11/26/2016 Patient Education: Patient Medication Summary Completed 11/26/2016 Visit Plan: Varicose veins-recommend compression stockings- monitor symptoms and call if uncontrolled UTI-culture urine 11/20/2016 Appointment: Josiane Berry WPtel: [phone] [place] (30 min) Complex 11/20/2016 Patient [...] or concerns. 11/16/2016 Appointment: [facility] [place] (15 min) Moderate 11/16/2016 Patient Education: [...] improved. 10/28/2016 Appointment: Mera Amador WPtel: [phone] [facility] (15 min) Moderate 10/28/2016 Patient Education: Patient Medication Summary Completed 10/28/2016 Appointment: Lab Draw 10/16/2016 Patient Education: Patient Medication Summary Completed 10/16/2016 Visit Plan: Allergies-continue claritin-add flonase as directed UTI-UA negative-symptoms resolved Jheqb-uuxpsjfy-lbsqbhb with upset stomach and feels more anxious/jittery-likely due to prednisone-stay off prednisone and call if symptoms do not resolve. Patient and caregiver verbalized understanding of plan. 10/13/2016 Visit Plan: Allergies-continue claritin-add flonase as directed UTI-UA negative-symptoms resolved Lsiro-dvntprna-ozaqerk with upset stomach and feels more anxious/jittery-likely due to prednisone-stay off prednisone and call if symptoms do not resolve. Patient and caregiver verbalized understanding of plan. 10/13/2016 Appointment: Josiane Berry WPtel: [facility]0 [phone] (15 min) Moderate 10/13/2016 Patient Education: Patient Medication Summary Completed 10/13/2016 Visit Plan: Allergic reaction-suspect due to cefdinir- kenalog injection today in the office-start prednisone tomorrow-start oral anti histamine such as claritin or zyrtec as directed-call if symptoms do not resolve , ER if any worse. Patient and friend verbalized understanding of plan. 10/08/2016 Appointment: Josiane Berry WPtel: [facility]3 [phone] [place] (30 min) Complex 10/08/2016 Patient [...] in November. 09/29/2016 Appointment: Mera Amador WPtel: [phone] [facility] [place] (15 min) Moderate 09/29/2016 Patient Education: Patient Medication Summary Completed 09/29/2016 Appointment: Mera Amador WPtel: [facility] (15 min) Moderate 09/23/2016 Appointment: Lab Draw 09/09/2016 Visit Plan: Anxiety - uncontrolled - restart the LEXAPRO 5mg at bedtime. Recurrent urinary tract infection - start on the PREVENTATIVE antibiotic trimethoprim 100mg daily. 09/03/2016 Appointment: Mera Amador WPtel: [phone] [facility] [place] (15 min) Moderate 09/03/2016 Patient [...] medications. 08/24/2016 Appointment: Mera Amador WPtel: [phone] [facility] [place] (15 min) Moderate 08/24/2016 Patient [...] or concerns. 08/11/2016 Appointment: Meli Malone WPtel: [phone] [facility] (30 min) Complex 08/11/2016 Patient Education: Patient Medication Summary Completed 08/11/2016 Appointment: Lab Draw 08/06/2016 Patient Education: Patient Medication Summary Completed 08/06/2016 Appointment: Josiane Berry WPtel: [facility]4 [phone] [place] (15 min) Moderate 08/04/2016 Visit Plan: Anxiety-continue lexapro-xanax prn-no changes in medications today Pelvic pain-UA negative-patient to see Dr Abraham for FINE HAIRER evaluation 08/03/2016 Appointment: Josiane Berry WPtel: [phone] [phone] [place] (10 min) Simple 08/03/2016 Patient [...] above medications. 07/27/2016 Appointment: Meli Malone WPtel: [phone] [facility] [place] (15 min) Moderate 07/27/2016 Patient Education: [...] Dr Hughes 07/21/2016 Appointment: Josiane Berry WPtel: [facility] [address] (15 min) Moderate 07/21/2016 Patient Education: Patient [...] in medications 07/14/2016 Appointment: Josiane Berry WPtel: [address] [place], [place] [phone] (30 min) Complex 07/14/2016 Patient Education: Patient [...] sodium-check labs 07/10/2016 Appointment: Josiane Berry WPtel: [facility] [place] [phone] (15 min) Moderate 07/10/2016 Patient Education: Patient Medication Summary Completed 07/10/2016 Visit Plan: UTI-finish cefuroxime-then start preventative abx-recheck UA in 1 week Low sodium-check labs today Depression-start the lexapro as directed 07/03/2016 Appointment: Josiane Berry WPtel: [phone] [phone] (15 min) Moderate 07/03/2016 Patient Education: [...] patient. 06/30/2016 Appointment: Meli Malone WPtel: [phone] [facility] (30 min) Complex 06/30/2016 Patient Education: [...] labs serially 06/23/2016 Appointment[facility] ([facility] min) Moderate 06/23/2016 Patient Education: Patient [...] monitor labs. 06/15/2016 Appointment: Meli Malone WPtel: [facility]5 [address] (10 min) Simple 06/15/2016 Patient Education: Patient Medication Summary Completed 06/15/2016 Appointment: Lab Draw 06/11/2016 Patient Education: Patient Medication Summary Completed 06/11/2016 Patient Education: Patient Medication Summary Completed 06/11/2016 Visit Plan: HTN-slightly elevated today-no change in treatment Low sodium-check labs today-increase gatorade if needed UTI-finish cipro Anxiety-xanax RX provided and instructed on use-will use for a short time 06/05/2016 Appointment: Josiane Berry WPtel: [address] [place] [address] (15 min) Moderate 06/05/2016 Patient Education: Patient Medication Summary Completed 06/05/2016 Visit Plan: UTI-persistent symptoms-stop cefdinir start cipro as directed-repeat UA upon completion of abx-continue estrace cream as directed-keep appt with Dr Hughes 06/01/2016 Appointment: Josiane Berry WPtel: [address] [place], [place] [phone] (15 min) Moderate 06/01/2016 Patient Education: Patient [...] times daily. 05/28/2016 Appointment: Mera Amador WPtel: [address] [place] [address] (15 min) Moderate 05/28/2016 Patient Education: Patient Medication Summary Completed 05/28/2016 Visit Plan: Left great toe pain-with fungal infection of nail-- large nail nippers and dremmel used to trim dystrophic, thickened, elongated toenail left great toe-patient verbalized relief from pain. Instructed patient to call if symptoms return or other concerns. 05/11/2016 Appointment: Josiane Berry WPtel: [address] [place], [place] [phone] [place] [address] (15 min) Moderate 05/11/2016 Patient Education: Patient [...] monitor symptoms. 04/30/2016 Appointment: Mera Amador WPtel: [facility]4 [facility]66[facility] New Patient 04/30/2016 Patient Education: Patient Medication Summary Completed 04/30/2016 Referral: External, Ordering Provider Referral Initiated Instructions Comment Thigh high compression stockings. . Varicose veins [...] like to be referred to someone in [place] instead of at - will look into referral to specialist in [place]. Continue cefuroxime as prescribed. Fluconazole is done [...] benefits of treatment with the above medications. VICKS VAPOR RUB TO BASE OF TOENAIL [...] and call if uncontrolled UTI-culture urine . UA negative - pt was feeling [...] pain-UA negative-patient to see Dr Abraham for FINE HAIRER evaluation . Anxiety - uncontrolled - restart [...] claritin-add flonase as directed UTI-UA negative-symptoms resolved Cfzga-yqmvqepw-zipoxoz with upset stomach and feels more anxious/jittery-likely due to prednisone-stay off prednisone and call if symptoms do not resolve. Patient and caregiver verbalized understanding of plan. . Allergies-continue claritin-add flonase as directed UTI-UA negative-symptoms resolved Zraau-tixmelfk-emqfpzv with upset stomach and feels more anxious/jittery-likely [...] plan, or with any questions or concerns. change the xanax to 1/2 pill three [...] in the office HTN-no change in medications 3 cups a day of the pedialyte [...] take the probiotic culturelle three times daily. Once the medrol dose pack is finished [...] cystoscopy if her symptoms were not improved. STOP THE CEFDINIR AND FLUCONAZOLE START CLARITIN [...] Patient and friend verbalized understanding of plan. Preleif - over the counter - may [...] repeat UA today, infectious disease clinic in [place] is reviewing her case to make her [...] increase in pain, worsening redness, warmth, discharge. August AT 1:[address] ABRAHAM . [...]
--- OUTSIDE RECORDS SUMMARY | 2017-07-04 04:23 | XMS REPORT | CCD ---
Author Author [facility] Organization [facility] Address [address] [place] [address] Phone Care Team Providers Care Sales And Marketing Analyst Name Role Phone PP Unavailable CCM Unavailable Summary Purpose Interface Exchange Insurance Providers Payer name Policy type / Coverage type Covered libertarian ID Effective Begin Date Effective End Date WPS Medicare Part B Medicare Part B [id number] Unknown Unknown AARP Medicare Part B [id number] Unknown Unknown Family History Family History data not found Social History Social History Element Codes Description Effective Dates Marital status Unknown 04/30/[address]: 454280503 Never smoker 04/30/[address]: 722350263 Never drinks alcohol 04/30/2016 Allergies, Adverse Reactions, Alerts Substance Reaction Codes Entered Date Inactivated Date Status cephalexin rash RxNorm: 2231 10/28/2016 No Inactive Date Active ultram pruritis RxNorm: 21500 08/24/2016 No Inactive Date Active Past Medical [...] 06/15/2016 Unknown Pelvic and perineal pain ICD-9: [id number] ICD-10: R10.2 Active 08/03/2016 Unknown Vitamin B12 [...] 06/15/2016 Active Pelvic and perineal pain ICD-9: [id number] ICD-10: R10.2 08/03/2016 Active Vitamin B12 deficiency [...] Instructions Augmentin 500 mg-125 mg tablet RxNorm: 548787 1 Tablet(s) PO TID 05/11/2017 05/17/2017 Active Xanax 0.25 mg tablet RxNorm: 122796 1/2-1 Tablet(s) PO TID as needed 05/07/2017 07/05/2017 Active omeprazole 40 mg capsule,delayed release RxNorm: 100765 TAKE ONE CAPSULE BY MOUTH ONCE DAILY 05/06/2017 No Stop Date Active prednisone 10 mg tablet RxNorm: 732006 Tablet(s) PO UD 2017 No Stop Date Active 20,20,10,10 Tessalon Perles 100 mg capsule RxNorm: 973810 1-2 Capsule(s) PO TID as needed cough 04/23/2017 No Stop Date Active prednisone 10 mg tablet RxNorm: 025156 Tablet(s) PO 04/23/2017 No Stop Date Active 6, 5,4,3,2,1 doxycycline hyclate 100 mg capsule RxNorm: 3087227 1 Capsule(s) PO BID 04/23/2017 05/02/2017 Inactive Kenalog 40 mg/mL suspension for injection RxNorm: 9987872 1 Milliliter(s) Inj 04/23/2017 04/23/2017 Inactive Cipro 500 mg tablet RxNorm: 189564 1 Tablet(s) PO BID 201704/16/2017 Inactive Cipro 500 mg tablet RxNorm: 523775 1 Tablet(s) PO BID 201603/25/2017 Inactive hydrocodone 5 mg-acetaminophen 325 mg tablet RxNorm: 997203 1 Tablet(s) PO Q6 as needed 03/05/2017 03/19/2017 Inactive Diflucan 150 mg tablet RxNorm: 471536 1 Tablet(s) PO daily 03/05/2017 Inactive Diflucan 150 mg tablet RxNorm: 077142 1 Tablet(s) PO daily 02/28/2017 Inactive Seasonique 0.15 mg-30 mcg (84)/10 mcg(7) tablets,3 month dose pack RxNorm: 668604 1 Tablet(s) PO UD 02/24/2017 02/24/2017 Inactive losartan 50 mg tablet RxNorm: 843335 TAKE ONE TABLET BY MOUTH ONCE DAILY IN THE MORNING 02/23/2017 No Stop Date Active Diflucan 150 mg tablet RxNorm: 984075 1 Tablet(s) PO daily 09/201602/14/2017 Inactive Cipro 500 mg tablet RxNorm: 457826 1 Tablet(s) PO BID 201601/21/2017 Inactive Augmentin 500 mg-125 mg tablet RxNorm: 376410 1 Tablet(s) PO TID 12/30/2016 12/29/2016 Inactive Augmentin 500 mg-125 mg tablet RxNorm: 456078 1 Tablet(s) PO TID 12/30/2016 01/05/2017 Inactive hydrocodone 5 mg-acetaminophen 325 mg tablet RxNorm: 771117 1 Tablet(s) PO Q6 as needed 12/24/2016 01/07/2017 Inactive omeprazole 40 mg capsule,delayed release RxNorm: 928616 TAKE ONE CAPSULE BY MOUTH ONCE DAILY 12/08/2016 04/06/2017 Inactive Diflucan 150 mg tablet RxNorm: 868122 1 Tablet(s) PO daily 12/02/2016 Inactive Xanax 0.25 mg tablet RxNorm: 211194 1/2-1 Tablet(s) PO TID as needed 11/24/2016 01/20/2017 Inactive Xanax 0.25 mg tablet RxNorm: 031347 1/2-1 Tablet(s) PO TID as needed 11/24/2016 01/22/2017 Inactive sucralfate 1 gram tablet RxNorm: 963657 TAKE ONE TABLET BY MOUTH BEFORE MEALS AND AT BEDTIME 11/20/2016 12/19/2016 Inactive Diflucan 150 mg tablet RxNorm: 309704 1 Tablet(s) PO daily 11/22/2016 Inactive Levaquin 500 mg tablet RxNorm: 727852 1 Tablet(s) PO daily 10/201611/08/2016 Inactive Levaquin 500 mg tablet RxNorm: 614542 1 Tablet(s) PO daily 10/201611/15/2016 Inactive losartan 50 mg tablet RxNorm: 343082 1 Tablet(s) PO QAM 201602/22/2017 Inactive hydrocodone 5 mg-acetaminophen 325 mg tablet RxNorm: 973437 1 Tablet(s) PO Q6 as needed 10/26/2016 11/09/2016 Inactive Kenalog 40 mg/mL suspension for injection RxNorm: 1447761 1 Milliliter(s) Inj 10/08/2016 10/08/2016 Inactive prednisone 5 mg tablets in a dose pack RxNorm: 324033 1 Tablet(s) PO UD 10/08/2016 10/12/2016 Inactive 6-5-4-3-2-1 Diflucan 150 mg tablet RxNorm: 186319 1 Tablet(s) PO daily 06/201610/04/2016 Inactive Diflucan 150 mg tablet RxNorm: 006487 1 Tablet(s) PO daily 06/201610/09/2016 Inactive Lexapro 10 mg tablet RxNorm: 190495 1 Tablet(s) PO QHS 201601/26/2017 Inactive cefdinir 300 mg capsule RxNorm: 466476 1 Capsule(s) PO BID 10/07/2016 Inactive Lexapro 5 mg tablet RxNorm: 373851 1 Tablet(s) PO QHS 201609/28/2016 Inactive trimethoprim 100 mg tablet RxNorm: 560292 1 Tablet(s) PO daily 09/03/2016 03/01/2017 Inactive hydrocodone 5 mg-acetaminophen 325 mg tablet RxNorm: 390439 1 Tablet(s) PO Q6 as needed 08/28/2016 09/11/2016 Inactive Diflucan 150 mg tablet RxNorm: 711271 1 Tablet(s) PO QW as needed symptoms of thrush 08/26/2016 09/28/2016 Inactive Xanax 0.25 mg tablet RxNorm: 434659 1/2-1 Tablet(s) PO TID as needed 08/24/2016 10/20/2016 Inactive tramadol 50 mg tablet RxNorm: 623741 1-2 Tablet(s) PO Q6 as needed for pain 08/14/2016 09/28/2016 Inactive amoxicillin 500 mg capsule RxNorm: 364215 1 Capsule(s) PO TID 08/11/2016 08/20/2016 Inactive nystatin 100,000 unit/mL oral suspension RxNorm: 324099 5 Milliliter(s) PO QID 08/11/2016 08/17/2016 Inactive cefdinir 300 mg capsule RxNorm: 480142 1 Capsule(s) PO BID 12/201608/20/2016 Inactive losartan 50 mg tablet RxNorm: 702570 1 Tablet(s) PO QAM 201610/24/2016 Inactive fluconazole 200 mg tablet RxNorm: 154117 1 Tablet(s) PO daily 07/19/2016 07/28/2016 Inactive cefuroxime axetil 500 mg tablet RxNorm: 197461 1 Tablet(s) PO BID 07/19/2016 08/02/2016 Inactive Xanax 0.25 mg tablet RxNorm: 525441 1/2-1 Tablet(s) PO QDAY PRN 07/14/2016 08/23/2016 Inactive cyanocobalamin (vit B-12) 1,000 mcg/mL injection solution RxNorm: 336227 1 Milliliter(s) Inj 07/14/2016 07/14/2016 Inactive Diflucan 150 mg tablet RxNorm: 576117 1 Tablet(s) PO daily 10/201607/17/2016 Inactive Keflex 250 mg capsule RxNorm: 787673 1 Capsule(s) PO QHS 201607/13/2016 Inactive Lexapro 5 mg tablet RxNorm: 360545 1 Tablet(s) PO QHS TO START AFTER YOU ARE FINISHED WITH THE DIFLUCAN!! 06/30/2016 Inactive cefuroxime axetil 250 mg tablet RxNorm: 928406 1 Tablet(s) PO BID 06/26/2016 06/25/2016 Inactive ceftriaxone 500 mg solution for injection RxNorm: 3236503 1 Milliliter(s) Inj 06/26/2016 06/26/2016 Inactive cefuroxime axetil 250 mg tablet RxNorm: 533708 1 Tablet(s) PO BID 06/26/2016 07/05/2016 Inactive Diflucan 150 mg tablet RxNorm: 223209 1 Tablet(s) PO QW as needed symptoms of thrush 06/23/2016 08/02/2016 Inactive Zantac 150 mg tablet RxNorm: 513687 1 Tablet(s) PO daily 201607/14/2016 Inactive Xanax 0.25 mg tablet RxNorm: 224588 1/2-1 Tablet(s) PO HS PRN 06/05/2016 07/13/2016 Inactive Keflex 250 mg capsule RxNorm: 052590 1 Capsule(s) PO QHS as needed 06/05/2016 07/04/2016 Inactive Cipro 500 mg tablet RxNorm: 208749 1 Tablet(s) PO BID 201606/07/2016 Inactive ceftriaxone 500 mg solution for injection RxNorm: 5957584 1 Milliliter(s) Inj 05/28/2016 05/28/2016 Inactive cefdinir 300 mg capsule RxNorm: 402467 1 Capsule(s) PO BID 05/31/2016 Inactive metronidazole 500 mg tablet RxNorm: 017074 1 Tablet(s) PO BID 05/28/2016 06/03/2016 Inactive sucralfate 1 gram tablet RxNorm: 255421 1 Tablet(s) PO AC & HS 05/21/2016 07/20/2016 Inactive sucralfate 1 gram tablet RxNorm: 589293 1 Tablet(s) PO AC & HS 05/21/2016 05/20/2016 Inactive omeprazole 40 mg capsule,delayed release RxNorm: 464407 1 Capsule(s) PO daily 05/21/2016 08/18/2016 Inactive omeprazole 40 mg capsule,delayed release RxNorm: 242603 1 Capsule(s) PO daily 05/21/2016 05/20/2016 Inactive losartan 50 mg tablet RxNorm: 700439 1 Tablet(s) PO QAM 201607/26/2016 Inactive latanoprost 0.005 % eye drops RxNorm: 272004 1 Drop(s) OPH daily No Start Date Active Culturelle 15 billion cell sprinkle capsule RxNorm: 0157898 1 Capsule(s) PO TID No Start Date Active Calcium 500 + D (D3) oral RxNorm: 857581 oral No Start Date Active cranberry 500 mg capsule RxNorm: 191510 1 Capsule(s) PO daily No Start Date Active Ocuvite Lutein and Zeaxanthin 60 mg-30 unit-15 mg-2 mg-6 mg capsule RxNorm: 227721 1 Capsule(s) PO daily No Start Date Active Pyridium 200 mg tablet RxNorm: 3746435 1 Tablet(s) PO TID as needed No Start Date Active Toviaz 4 mg tablet,extended release RxNorm: 068276 1 Tablet(s) PO daily No Start Date Active Klor-Con 10 mEq tablet,extended release RxNorm: 314710 1 Tablet(s) PO BID No Start Date Active Estrace 0.01% (0.1 mg/gram) vaginal cream RxNorm: 535773 1 Application VAG TIW No Start Date 07/13/2016 Inactive allopurinol 300 mg tablet RxNorm: 759372 1 Tablet(s) PO daily No Start Date 06/22/2016 Inactive triamterene 37.5 mg-hydrochlorothiazide 25 mg tablet RxNorm: 581063 1 Tablet(s) PO daily No Start Date 10/07/2016 Inactive Seasonique 0.15 mg-30 mcg (84)/10 mcg(7) tablets,3 month dose pack RxNorm: 299607 1 Tablet(s) PO UD No Start Date 2016 Inactive hydrocodone 5 mg-acetaminophen 325 mg tablet RxNorm: 806743 1 Tablet(s) PO as needed No Start Date 08/27/2016 Inactive meloxicam 7.5 mg tablet RxNorm: 196224 1 Tablet(s) PO daily as needed No Start Date 10/07/2016 Inactive Multivitamins FC tablet RxNorm: 1 Tablet(s) PO daily No Start Date 10/07/2016 Inactive Fish Oil 1,000 mg capsule RxNorm: 1 Capsule(s) PO BID No Start Date 05/27/2016 Inactive tramadol 50 mg tablet RxNorm: 948507 1-2 Tablet(s) PO Q6 as needed for pain No Start Date 08/13/2016 Inactive Medication Administered Medication Codes Instructions Start Date Status Kenalog 40 mg/mL suspension for injection RxNorm: 4324065 1Milliliter 10/08/2016 No longer Active cyanocobalamin (vit B-12) 1,000 mcg/mL injection solution RxNorm: 410138 1Milliliter 07/14/2016 No longer Active ceftriaxone 500 mg solution for injection RxNorm: 7607216 1Milliliter 06/26/2016 No longer Active ceftriaxone 500 mg solution for injection RxNorm: 6053984 1Milliliter 05/28/2016 No longer Active Immunizations Vaccine [...] Pelvic and perineal pain ICD-10: R10.2 ICD-9: [id number] 08/11/2016 Hypo-osmolality and hyponatremia ICD-10: E87.1 ICD-9: [...] Item Item Code Result Date Culture Urine [id number] URINE CULTURE SEE NOTES 04/06/2017 Culture Urine [id number] Continued Results 04/06/2017 Urine Culture Ucult Complete >100,000 col/ml aerobic growth sent to ref lab 04/02/2017 Culture Urine [id number] URINE CULTURE SEE NOTES 03/22/2017 Culture Urine [id number] Continued Results 03/22/2017 Urine Culture Ucult Complete >100,000 col/ml aerobic growth sent to ref lab 03/20/2017 Comp Metabolic Qzk436 NA 131 mEq/L 03/19/2017 Comp Metabolic Jwg025 K 4.0 mEq/L 03/19/2017 Comp Metabolic Evs132 CL 93 mEq/L 03/19/2017 Comp Metabolic Kmr802 CO2 28.0 mEq/L 03/19/2017 Comp Metabolic Cfs597 ANION GAP 14 03/19/2017 Comp Metabolic Crq133 GLUCOSE 94 mg/dL 03/19/2017 Comp Metabolic Vyu161 Creat 0.8 mg/dL 03/19/2017 Comp Metabolic Rrh557 eGFR 69 ml/min/1.73m2 03/19/2017 Comp Metabolic Czh302 BUN 16 mg/dL 03/19/2017 Comp Metabolic Qjc189 B/C Ratio 19.3 Ratio 03/19/2017 Comp Metabolic Cwc595 CALCIUM 9.5 mg/dL 03/19/2017 Comp Metabolic Vso290 ALK PHOS 54 U/L 03/19/2017 Comp Metabolic Bbs080 AST(SGOT) 22 U/L 03/19/2017 Comp Metabolic Rcr812 ALT(SGPT) 18 U/L 03/19/2017 Comp Metabolic Zav279 BILI T 0.4 mg/dL 03/19/2017 Comp Metabolic Kdc071 ALBUMIN 4.2 g/dL 03/19/2017 Comp Metabolic Ppe277 TPRO 6.2 g/dL 03/19/2017 Comp Metabolic Hbl685 GLOB 2.0 g/dL 03/19/2017 Comp Metabolic Sop602 A/G Ratio 2.2 Ratio 03/19/2017 Comp Metabolic Cit474 Osmo 264 mOsmo 03/19/2017 Cbc With Differential [...] 34.3 pg 03/19/2017 Cbc With Differential Ord2 Menard% 10.3 % 03/19/2017 Cbc With Differential Ord2 [...] 1.49 K/ul 03/19/2017 Cbc With Differential Ord2 Menard ABS# 1.2 K/ul 03/19/2017 Cbc With Differential [...] Ord15 CALCIUM 9.3 mg/dL 08/11/2016 Culture Urine [id number] URINE CULTURE SEE NOTES 08/10/2016 Culture Urine [id number] Continued Results 08/10/2016 Urine Culture Ucult Complete >100,000 col/ml aerobic growth sent to ref lab 08/07/2016 Comp Metabolic Ayv957 NA 132 mEq/L 07/10/2016 Comp Metabolic Bjx375 K 3.9 mEq/L 07/10/2016 Comp Metabolic Jll029 CL 94 mEq/L 07/10/2016 Comp Metabolic Jhz649 CO2 28.0 mEq/L 07/10/2016 Comp Metabolic Lwe893 ANION GAP 14 07/10/2016 Comp Metabolic Cax267 GLUCOSE 96 mg/dL 07/10/2016 Comp Metabolic Ajm687 Creat 0.8 mg/dL 07/10/2016 Comp Metabolic Qui760 eGFR 70 ml/min/1.73m2 07/10/2016 Comp Metabolic Viy788 BUN 22 mg/dL 07/10/2016 Comp Metabolic Gga939 B/C Ratio 26.8 Ratio 07/10/2016 Comp Metabolic Uwc182 CALCIUM 10.2 mg/dL 07/10/2016 Comp Metabolic Syu534 ALK PHOS 50 U/L 07/10/2016 Comp Metabolic Mln088 AST(SGOT) 21 U/L 07/10/2016 Comp Metabolic Iez612 ALT(SGPT) 19 U/L 07/10/2016 Comp Metabolic Azn274 BILI T 0.5 mg/dL 07/10/2016 Comp Metabolic Pjf500 ALBUMIN 4.2 g/dL 07/10/2016 Comp Metabolic Gam896 TPRO 6.6 g/dL 07/10/2016 Comp Metabolic Gvb744 GLOB 2.4 g/dL 07/10/2016 Comp Metabolic Lax210 A/G Ratio 1.8 Ratio 07/10/2016 Comp Metabolic Qmv574 Osmo 268 mOsmo 07/10/2016 Wet Prep [id number] Yeast Vaginal TNP:Duplicate Order 2016 Wet Prep [id number] Trichomonas TNP:Duplicate Order 07/10/2016 Cbc With Differential [...] 100.0 fl 07/10/2016 Cbc With Differential Ord2 Menard% 10.7 % 07/10/2016 Cbc With Differential Ord2 [...] 1.35 K/ul 07/10/2016 Cbc With Differential Ord2 Menard ABS# 0.9 K/ul 07/10/2016 Cbc With Differential Ord2 Eos ABS# 0.1 K/ul 07/10/2016 Cbc With Differential Ord2 Baso ABS# 0.0 K/ul 07/10/2016 Wet Prep [id number] Yeast Vaginal None 07/10/2016 Wet Prep [id number] Trichomonas None 07/10/2016 Comp Metabolic Wue061 NA 131 mEq/L 07/03/2016 Comp Metabolic Zbb801 K 4.4 mEq/L 07/03/2016 Comp Metabolic Yuh471 CL 92 mEq/L 07/03/2016 Comp Metabolic Lfn372 CO2 28.0 mEq/L 07/03/2016 Comp Metabolic Cif908 ANION GAP 15 07/03/2016 Comp Metabolic Mcw814 GLUCOSE 96 mg/dL 07/03/2016 Comp Metabolic Exo549 Creat 0.8 mg/dL 07/03/2016 Comp Metabolic Kfb601 eGFR 76 ml/min/1.73m2 07/03/2016 Comp Metabolic Drf815 BUN 22 mg/dL 07/03/2016 Comp Metabolic Pjd593 B/C Ratio 28.9 Ratio 07/03/2016 Comp Metabolic Mve426 CALCIUM 10.3 mg/dL 07/03/2016 Comp Metabolic Gtb288 ALK PHOS 49 U/L 07/03/2016 Comp Metabolic Iac953 AST(SGOT) 21 U/L 07/03/2016 Comp Metabolic Yfh191 ALT(SGPT) 19 U/L 07/03/2016 Comp Metabolic Jmf058 BILI T 0.5 mg/dL 07/03/2016 Comp Metabolic Pcn321 ALBUMIN 4.3 g/dL 07/03/2016 Comp Metabolic Evn845 TPRO 6.7 g/dL 07/03/2016 Comp Metabolic Hmr030 GLOB 2.4 g/dL 07/03/2016 Comp Metabolic Qce061 A/G Ratio 1.8 Ratio 07/03/2016 Comp Metabolic Bqi324 Osmo 266 mOsmo 07/03/2016 Cbc With Differential [...] 15.7 % 07/03/2016 Cbc With Differential Ord2 Menard% 10.3 % 07/03/2016 Cbc With Differential Ord2 [...] 1.40 K/ul 07/03/2016 Cbc With Differential Ord2 Menard ABS# 0.9 K/ul 07/03/2016 Cbc With Differential [...] Ord62 ANION GAP 12 06/11/2016 Comp Metabolic Rly681 NA 127 mEq/L 06/05/2016 Comp Metabolic Ozh205 K 4.0 mEq/L 06/05/2016 Comp Metabolic Eip166 CL 94 mEq/L 06/05/2016 Comp Metabolic Rlo877 CO2 26.0 mEq/L 06/05/2016 Comp Metabolic Wrt158 ANION GAP 11 06/05/2016 Comp Metabolic Rdf603 GLUCOSE 101 mg/dL 06/05/2016 Comp Metabolic Xmo096 Creat 0.7 mg/dL 06/05/2016 Comp Metabolic Zoa437 eGFR 80 ml/min/1.73m2 06/05/2016 Comp Metabolic Ohl370 BUN 15 mg/dL 06/05/2016 Comp Metabolic Guz310 B/C Ratio 20.5 Ratio 06/05/2016 Comp Metabolic Rkb468 CALCIUM 9.2 mg/dL 06/05/2016 Comp Metabolic Zca139 ALK PHOS 43 U/L 06/05/2016 Comp Metabolic Wbi842 AST(SGOT) 32 U/L 06/05/2016 Comp Metabolic Ybs721 ALT(SGPT) 43 U/L 06/05/2016 Comp Metabolic Lvz091 BILI T 0.4 mg/dL 06/05/2016 Comp Metabolic Cfo053 ALBUMIN 4.3 g/dL 06/05/2016 Comp Metabolic Dhm093 TPRO 6.2 g/dL 06/05/2016 Comp Metabolic Ktj284 GLOB 2.0 g/dL 06/05/2016 Comp Metabolic Nok719 A/G Ratio 2.2 Ratio 06/05/2016 Comp Metabolic Seo716 Osmo 256 mOsmo 06/05/2016 Cbc With Differential [...] 13.6 % 06/05/2016 Cbc With Differential Ord2 Menard% 11.1 % 06/05/2016 Cbc With Differential Ord2 [...] 1.03 K/ul 06/05/2016 Cbc With Differential Ord2 Menard ABS# 0.8 K/ul 06/05/2016 Cbc With Differential Ord2 Eos ABS# 0.0 K/ul 06/05/2016 Cbc With Differential Ord2 Baso ABS# 0.0 K/ul 06/05/2016 Culture Urine [id number] URINE CULTURE SEE NOTES 06/01/2016 Culture Urine [id number] Continued Results 06/01/2016 Urine Culture Ucult Complete [...] Codes Date URINALYSIS NONAUTO W/O SCOPE CPT-4: 84452 05/11/2017 URINALYSIS NONAUTO W/O SCOPE CPT-4: 75053 04/01/2017 URINALYSIS NONAUTO W/O SCOPE CPT-4: 63067 03/05/2017 FLU VACC PRSV FREE INC ANTIG CPT-4: 34285 12/18/2016 ADMIN INFLUENZA VIRUS VAC CPT-4: G0008 12/18/2016 URINALYSIS NONAUTO W/O SCOPE CPT-4: 95682 11/26/2016 URINALYSIS NONAUTO W/O SCOPE CPT-4: 45791 11/06/2016 URINALYSIS NONAUTO W/O SCOPE CPT-4: 10059 10/16/2016 TRIAMCINOLONE ACET INJ NOS CPT-4: J3301 10/08/2016 URINALYSIS NONAUTO W/O SCOPE CPT-4: 24637 09/03/2016 URINALYSIS NONAUTO W/O SCOPE CPT-4: 48377 08/24/2016 URINALYSIS NONAUTO W/O SCOPE CPT-4: 94732 08/06/2016 THER/PROPH/DIAG INJ SC/IM CPT-4: 99603 07/14/2016 VITAMIN B12 INJECTION CPT-4: J3420 07/14/2016 URINALYSIS NONAUTO W/O SCOPE CPT-4: 41419 07/03/2016 THER/PROPH/DIAG INJ SC/IM CPT-4: 71967 06/26/2016 ROCEPHIN, PER 250 MG CPT-4: J0696 06/26/2016 URINALYSIS NONAUTO W/O SCOPE CPT-4: 01527 06/23/2016 URINALYSIS NONAUTO W/O SCOPE CPT-4: 43532 06/11/2016 URINALYSIS NONAUTO W/O SCOPE CPT-4: 31909 05/28/2016 THER/PROPH/DIAG INJ SC/IM CPT-4: 10943 05/28/2016 ROCEPHIN, PER 250 MG CPT-4: J0696 05/28/2016 REMOVAL OF IMPACTED WAX CPT-4: G0268 05/06/2016 Vital Signs Date Vital 03/19/2017 Blood Pressure 1: 144/76 Code : 8480-6 BMI: 26.3 Code : 60127-6 Heart Rate 1 : 102 bpm Height: 5'4" SpO2: 98% Temperature: 36.8 (C) / 98.3 (F) Weight: 153 lbs 03/08/2017 Blood Pressure 1: 136/80 Code : 8480-6 BMI: 26.9 Code : 70211-5 Heart Rate 1 : 76 bpm Height: 5'4" SpO2: 96% Weight: 157 lbs 02/02/2017 Blood Pressure 1: 148/68 Code : 8480-6 BMI: 26.9 Code : 55839-2 Heart Rate 1 : 76 bpm Height: 5'4" SpO2: 97% Weight: 157 lbs 01/15/2017 Blood Pressure 1: 142/76 Code : 8480-6 BMI: 26.9 Code : 19253-0 Heart Rate 1 : 86 bpm Height: 5'4" SpO2: 97% Weight: 157 lbs 12/30/2016 Blood Pressure 1: 140/76 Code : 8480-6 BMI: 26.9 Code : 13314-2 Heart Rate 1 : 84 bpm Height: 5'4" SpO2: 97% Weight: 157 lbs 12/22/2016 Blood Pressure 1: 130/78 Code : 8480-6 BMI: 26.9 Code : 82578-4 Heart Rate 1 : 80 bpm Height: 5'4" SpO2: 97% Weight: 157 lbs 12/18/2016 BMI: 26.9 Code: 87541-3 Height: 5'4" Weight: 157 lbs 11/20/2016 Blood Pressure 1: 134/60 Code : 8480-6 BMI: 25.9 Code : 65719-5 Heart Rate 1 : 80 bpm Height: 5'4" SpO2: 97% Weight: 151 lbs 11/16/2016 BMI: 25.6 Code: 67709-7 Heart Rate 1: 74 bpm Height: 5'4" SpO2: 97% Weight: 149 lbs 10/28/2016 Blood Pressure 1: 128/70 Code : 8480-6 BMI: 25.7 Code : 74101-4 Heart Rate 1 : 70 bpm Height: 5'4" SpO2: 96% Weight: 150 lbs 10/13/2016 Blood Pressure 1: 130/78 Code : 8480-6 Heart Rate 1: 69 bpm Height: 5'4" SpO2: 98% 10/08/2016 Blood Pressure 1: 122/70 Code : 8480-6 BMI: 25.6 Code : 44015-1 Heart Rate 1 : 79 bpm Height: 5'4" SpO2: 97% Temperature: 37.0 (C) / 98.6 (F) Weight: 149 lbs 09/29/2016 Blood Pressure 1: 124/70 Code : 8480-6 BMI: 25.4 Code : 33188-4 Heart Rate 1 : 74 bpm Height: 5'4" SpO2: 94% Weight: 148 lbs 09/03/2016 Blood Pressure 1: 120/68 Code : 8480-6 BMI: 24.7 Code : 10847-7 Heart Rate 1 : 59 bpm Height: 5'4" SpO2: 97% Weight: 144 lbs 08/24/2016 Blood Pressure 1: 128/74 Code : 8480-6 BMI: 24.7 Code : 55365-3 Heart Rate 1 : 75 bpm Height: 5'4" SpO2: 97% Weight: 144 lbs 08/11/2016 Blood Pressure 1: 142/76 Code : 8480-6 BMI: 24.9 Code : 02987-9 Heart Rate 1 : 77 bpm Height: 5'4" SpO2: 96% Weight: 145 lbs 08/03/2016 Blood Pressure 1: 142/78 Code : 8480-6 BMI: 25.1 Code : 55310-4 Heart Rate 1 : 75 bpm Height: 5'4" SpO2: 97% Temperature: 36.9 (C) / 98.5 (F) Weight: 146 lbs 07/27/2016 Blood Pressure 1: 158/80 Code : 8480-6 BMI: 25.1 Code : 87141-1 Heart Rate 1 : 72 bpm Height: 5'4" SpO2: 98% Weight: 146 lbs 07/21/2016 Blood Pressure 1: 144/76 Code : 8480-6 BMI: 25.1 Code : 26930-6 Heart Rate 1 : 80 bpm Height: 5'4" SpO2: 94% Temperature: 37.3 (C) / 99.2 (F) Weight: 146 lbs 07/14/2016 Blood Pressure 1: 128/74 Code : 8480-6 BMI: 25.1 Code : 73615-7 Heart Rate 1 : 79 bpm Height: 5'4" SpO2: 97% Temperature: 37.2 (C) / 98.9 (F) Weight: 146 lbs 8 oz 07/10/2016 Blood Pressure 1: 148/78 Code : 8480-6 BMI: 25.1 Code : 31716-5 Heart Rate 1 : 82 bpm Height: 5'4" SpO2: 96% Temperature: 37.2 (C) / 99.0 (F) Weight: 146 lbs 8 oz 07/03/2016 Blood Pressure 1: 134/76 Code : 8480-6 Heart Rate 1: 79 bpm Height: 5'4" SpO2: 98% Temperature: 36.9 (C) / 98.4 (F) 06/30/2016 Blood Pressure 1: 138/78 Code : 8480-6 BMI: 25.1 Code : 43321-7 Heart Rate 1 : 90 bpm Height: 5'4" SpO2: 97% Weight: 146 lbs 06/23/2016 Blood Pressure 1: 132/58 Code : 8480-6 BMI: 25.7 Code : 98107-7 Heart Rate 1 : 85 bpm Height: 5'4" SpO2: 97% Weight: 150 lbs 06/15/2016 Blood Pressure 1: 134/62 Code : 8480-6 BMI: 26.4 Code : 68168-8 Heart Rate 1 : 75 bpm Height: 5'4" SpO2: 95% Weight: 154 lbs 06/05/2016 Blood Pressure 1: 156/80 Code : 8480-6 BMI: 26.4 Code : 81327-6 Heart Rate 1 : 92 bpm Height: 5'4" SpO2: 98% Weight: 154 lbs 06/01/2016 Blood Pressure 1: 135/80 Code : 8480-6 Heart Rate 1: 95 bpm SpO2: 97% Temperature: 37.1 (C) / 98.8 (F) 05/28/2016 Blood Pressure 1: 140/80 Code : 8480-6 BMI: 26.1 Code : 83820-3 Heart Rate 1 : 89 bpm Height: 5'4" SpO2: 96% Weight: 152 lbs 05/11/2016 Blood Pressure 1: 154/86 Code : 8480-6 Heart Rate 1: 89 bpm Height: 5'4" SpO2: 95% Weight: 04/30/2016 Blood Pressure 1: 142/72 Code : 8480-6 BMI: 26.3 Code : 67315-2 Heart Rate 1 : 87 bpm Height: [...] data Encounters Encounter Performer Location Codes Date 57833 EST. PATIENT, LEVEL III Diagnosis: Dysuria[ICD10: R30.0] Diagnosis: Other malaise[ICD10: R53.81] Diagnosis: Other fatigue[ICD10: R53.83] Diagnosis: Generalized anxiety disorder[ICD10: F41.1] Meli Amador MD, [facility] CPT-4: 06864 03/19/2017 [id number] EST. PATIENT, LEVEL III Diagnosis: Left lower quadrant pain[ICD10: R10.32] Meli Amador MD, [facility] CPT-4: 20751 03/08/2017 [id number] EST. PATIENT, LEVEL III Diagnosis: Dysuria[ICD10: R30.0] Diagnosis: Generalized anxiety disorder[ICD10: F41.1] Meli Amador MD, [facility] CPT-4: 40969 02/02/2017 69952 EST. PATIENT, LEVEL III Diagnosis: Generalized anxiety disorder[ICD10: F41.1] Diagnosis: Urinary tract infection, site not specified[ICD10: N39.0] Meli Amador MD, [facility] CPT-4: 66794 01/15/2017 88054 EST. PATIENT, LEVEL IV Diagnosis: Dysuria[ICD10: R30.0] Diagnosis: Rash and other nonspecific skin eruption[ICD10: R21] Meli Amador MD, [facility] CPT-4: 96066 12/30/2016 17500 EST. PATIENT, LEVEL IV Diagnosis: Localized edema[ICD10: R60.0] Diagnosis: Pain in left lower leg[ICD10: M79.662] Diagnosis: Dysuria[ICD10: R30.0] Meil Amador MD, [facility] CPT-4: 24416 12/22/2016 30102 EST. PATIENT, LEVEL IV Diagnosis: 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[ICD10: I83.92] Diagnosis: Urinary tract infection, site not specified[ICD10: N39.0] Diagnosis: Encounter for immunization[ICD10: Z23] Meli Amador MD, [facility] CPT-4: 00439 12/18/2016 ([id number]) 52373 EST. PATIENT, LEVEL III Diagnosis: 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[ICD10: I83.92] Diagnosis: Urinary tract infection, site not specified[ICD10: N39.0] Josiane Amador MD , [facility] CPT-4: 32670 11/20/2016 32982 EST. PATIENT, LEVEL III Diagnosis: Dysuria[ICD10: R30.0] Meli Amador MD, [facility] CPT-4: 14565 11/16/2016 ([id number]) 60098 EST. PATIENT, LEVEL III Diagnosis: Generalized anxiety disorder[ICD10: F41.1] Diagnosis: Urinary tract infection, site not specified[ICD10: N39.0] Mera Amador MD, [facility] CPT-4: 97323 10/28/2016 ([id number]) 06116 EST. PATIENT, LEVEL III Diagnosis: Allergic rhinitis due to pollen[ICD10: J30.1] Diagnosis: Urinary tract infection, site not specified[ICD10: N39.0] Diagnosis: Allergic urticaria[ICD10: L50.0] Josiane Amador MD, [facility] CPT-4: 27836 10/13/2016 ([id number]) 97087 EST. 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 PATIENT, LEVEL III Diagnosis: Dysuria[ICD10: R30.0] Diagnosis: Essential (primary) hypertension[ICD10: I10] Mera Amador MD, [facility] CPT-4: 07766 09/29/2016 ([id number]) 76301 EST. PATIENT, LEVEL III Diagnosis: Generalized anxiety disorder[ICD10: F41.1] Diagnosis: Dysuria[ICD10: R30.0] Diagnosis: Personal history of urinary (tract) infections[ICD10: Z87.440] Mera Amador MD, [facility] CPT-4: 45045 09/03/2016 ([id number]) 35357 EST. PATIENT, LEVEL IV Diagnosis: Essential (primary) hypertension[ICD10: I10] Diagnosis: Generalized anxiety disorder[ICD10: F41.1] Diagnosis: Dysuria[ICD10: R30.0] Mera Amador MD, [facility] CPT-4: 75483 08/24/2016 [id number] EST. PATIENT, LEVEL IV Diagnosis: Hypo-osmolality and hyponatremia[ICD10: E87.1] Diagnosis: Generalized anxiety disorder[ICD10: F41.1] Diagnosis: Pelvic and perineal pain[ICD10: R10.2] Diagnosis: Candidal stomatitis[ICD10: B37.0] Meli Amador MD, [facility] CPT -4: 01461 08/11/2016 ([id number]) 28082 EST. PATIENT, LEVEL III Diagnosis: Generalized anxiety disorder[ICD10: F41.1] Diagnosis: Pelvic and perineal pain[ICD10: R10.2] Josiane Amador MD, [facility] CPT-4: 63764 08/03/2016 65765 EST. PATIENT, LEVEL IV Diagnosis: Generalized anxiety disorder[ICD10: F41.1] Diagnosis: Pelvic and perineal pain[ICD10: R10.2] Diagnosis: Gastro-esophageal reflux disease without esophagitis[ICD10: K21.9] Meli Amador MD, [facility] CPT-4: 96142 07/27/2016 ([id number]) 28082 EST. PATIENT, LEVEL III Diagnosis: Urinary tract infection, site not specified[ICD10: N39.0] Diagnosis: Gastro-esophageal reflux disease without esophagitis[ICD10: K21.9] Diagnosis: Generalized anxiety disorder[ICD10: F41.1] Josiane Amador MD, [facility] CPT-4: 92984 07/21/2016 ([id number]) 54779 EST. PATIENT, LEVEL III Diagnosis: Generalized anxiety disorder[ICD10: F41.1] Diagnosis: Essential (primary) hypertension[ICD10: I10] Diagnosis: Vitamin B12 deficiency anemia, unspecified[ICD10: D51.9] Josiane Amador MD , [facility] CPT-4: 05878 07/14/2016 ([id number]) 75948 EST. 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 PATIENT, LEVEL III Diagnosis: Urinary tract infection, site not specified[ICD10: N39.0] Diagnosis: Hypo-osmolality and hyponatremia[ICD10: E87.1] Josiane Amador MD, [facility] CPT-4: 48482 07/03/2016 34420 EST. PATIENT, LEVEL IV Diagnosis: Generalized anxiety disorder[ICD10: F41.1] Diagnosis: Major depressive disorder, recurrent, mild[ICD10: F33.0] Diagnosis: Hypo-osmolality and hyponatremia[ICD10: E87.1] Meli Amador MD, [facility] CPT-4: 23861 06/30/2016 ([id number]) 62631 EST. PATIENT, LEVEL III Diagnosis: Hypo-osmolality and hyponatremia[ICD10: E87.1] Diagnosis: Dysuria[ICD10: R30.0] Diagnosis: Essential (primary) hypertension[ICD10: I10] Mera Amador MD, [facility] CPT-4: 90804 06/23/2016 76027 EST. PATIENT, LEVEL III Diagnosis: Candidal stomatitis[ICD10: B37.0] Diagnosis: Gastro-esophageal reflux disease without esophagitis[ICD10: K21.9] Diagnosis: Hypo-osmolality and hyponatremia[ICD10: E87.1] Meli Amador MD, [facility] CPT-4: 02848 06/15/2016 ([id number]) 90301 EST. PATIENT, LEVEL III Diagnosis: Essential (primary) hypertension[ICD10: I10] Diagnosis: Hypo-osmolality and hyponatremia[ICD10: E87.1] Diagnosis: Urinary tract infection, site not specified[ICD10: N39.0] Josiane Amador MD , [facility] CPT-4: 17844 06/05/2016 ([id number]) 08737 EST. PATIENT, LEVEL III Diagnosis: Urinary tract infection, site not specified[ICD10: N39.0] Josiane Amador MD , [facility] CPT-4: 39805 06/01/2016 ([id number]) 13389 EST. 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 PATIENT, LEVEL III Diagnosis: Pain in left toe(s)[ICD10: M79.675] Diagnosis: Tinea unguium[ICD10: B35.1] Josiane Amador MD, [facility] CPT-4: 73969 05/11/2016 ([id number]) OFFICE VISIT, NEW - LEVEL 4 Diagnosis: Essential (primary) hypertension[ICD10: I10] Diagnosis: Hypo-osmolality and hyponatremia[ICD10: E87.1] Mera Amador MD, [facility] CPT-4: 62443 04/30/2016 Plan of Care Planned Activity Notes Codes Status Date Care Plan: Urine Culture Pending 05/12/2017 Appointment: Lab Draw 05/11/2017 Patient Education: Patient Medication Summary Completed 05/11/2017 Appointment: Meli Malone WPtel: [address] [place], [place] [address] (30 min) Complex 05/10/2017 [facility] [facility] [place] ([facility] Complex 04/30/2017 Appointment: Lab Draw 04/29/2017 [phone] [place] ([facility] min) Complex 04/29/2017 [facility] [place] ([facility] min) Complex 04/23/2017 Appointment: Lab Draw 04/01/2017 Patient Education: Patient Medication Summary Completed 04/01/2017 [phone] [place] ([facility] min) Complex 03/19/2017 Patient Education: Patient Medication Summary Completed 03/19/2017 Appointment: Meli Mal[facility] [place] ([facility] min) Complex 03/08/2017 Patient Education: Patient Medication Summary Completed 03/08/2017 Appointment: Lab Draw 03/05/2017 Patient Education: Patient Medication Summary Completed 03/05/2017 Appointment: Lab Draw 02/23/2017 Appointment: Lab Draw 02/08/2017 Patient Education: Patient Medication Summary Completed 02/08/2017 Appointment: Meli Malone [facility]Ptel[facility] ([facility] Complex 02/02/2017 Patient Education: Patient Medication Summary Completed 02/02/2017 Patient Education: Patient Medication Summary Completed 01/15/2017 Referral: External, Ordering Provider Referral Initiated 01/06/2017 Appointment: Meli Malone [facility]Ptel[facility] [place] ([facility] min) Complex 12/30/2016 Patient Education: Patient Medication Summary Completed 12/30/2016 Appointment: Meli Malone WPtel: [facility] [place] (15 min) Moderate 12/22/2016 Patient Education: Patient Medication Summary Completed 12/22/2016 Care Plan: VASCULAR STUDY Pending 12/22/2016 Care Plan: Referral Order SNOMED-CT : [id number] Pending 12/20/2016 [facility]ment[phone] [facility] (15 min) Moderate 12/18/2016 Patient Education: Patient Medication Summary Completed 12/18/2016 Appointment: Lab Draw 12/04/2016 Appointment: Meli Malone [facility]Ptel[facility] [place] ([facility] min) Complex 11/27/2016 Appointment: Lab Draw 11/26/2016 Patient Education: Patient Medication Summary Completed 11/26/2016 Appointment: Josiane Berry WPtel: [phone] [place] (30 min) Complex 11/20/2016 Patient Education: Patient Medication Summary Completed 11/20/2016 Appointment: Meli Malone [facility]Ptel[facility] [place] (15 min) Moderate 11/16/2016 Patient Education: Patient Medication Summary Completed 11/16/2016 Appointment: Lab Draw 11/13/2016 Appointment: Lab Draw 11/06/2016 Patient Education: Patient Medication Summary Completed 11/06/2016 Care Plan: Urine Culture Pending 11/06/2016 Appointment: [facility] ([facility] Moderate 10/28/2016 Patient Education: Patient Medication Summary Completed 10/28/2016 Appointment: Lab Draw 10/16/2016 Patient Education: Patient Medication Summary Completed 10/16/2016 Appointment: Josiane Berry WPtel: [phone] [place] (15 min) Moderate 10/13/2016 Patient Education: Patient Medication Summary Completed 10/13/2016 Appointment: Josiane Berry [facility]Ptel[phone] [place] (30 min) Complex 10/08/2016 Patient Education: Patient Medication Summary Completed 10/08/2016 App[facility]ment[facility] [phone] [facility] [place] (15 min) Moderate 09/29/2016 Patient Education: Patient Medication Summary Completed 09/29/2016 [facility] [phone] [facility] [place] (15 min) Moderate 09/23/2016 Appointment: Lab Draw 09/09/2016 App[facility]ment[facility] [phone] [facility] [place] (15 min) Moderate 09/03/2016 Patient Education: Patient Medication Summary Completed 09/03/2016 App[facility]ment: [facility] [phone] [facility] [place] (15 min) Moderate 08/24/2016 Patient Education: Patient Medication Summary Completed 08/24/2016 [phone] [facility] [place] ([facility] min) Complex 08/11/2016 Patient Education: Patient Medication Summary Completed 08/11/2016 Appointment: Lab Draw 08/06/2016 Patient Education: Patient Medication Summary Completed 08/06/2016 [facility]ment: [phone] [phone] [place] (15 min) Moderate 08/04/2016 Appointment: Josiane Berry WPtel: [phone] [phone] [place] (10 min) Simple 08/03/2016 Patient Education: Patient Medication Summary Completed 08/03/2016 [facility]ment: [phone] [place] (15 min) Moderate 07/27/2016 Patient Education: Patient Medication Summary Completed 07/27/2016 Appointment: Josiane Berry WPtel: [phone] [phone] [place] (15 min) Moderate 07/21/2016 Patient Education: Patient Medication Summary Completed 07/21/2016 Appointment: Josiane Berry WPtel: [phone] [phone] [place] (30 min) Complex 07/14/2016 Patient Education: Patient Medication Summary Completed 07/14/2016 Appointment: Josiane Berry WPtel: [phone] [place] (15 min) Moderate 07/10/2016 Patient Education: Patient Medication Summary Completed 07/10/2016 Appointment: Josiane Berry WPtel: [phone] [place] (15 min) Moderate 07/03/2016 Patient Education: Patient Medication Summary Completed 07/03/2016 Appointment: Meli Malone WPtel: [facility] (30 min) Complex 06/30/2016 Patient Education: Patient Medication Summary Completed 06/30/2016 Appointment: Injection 06/26/2016 Patient Education: Patient Medication Summary Completed 06/26/2016 Appointment: Mera Amador WPtel: [address] [place], [place] [address] [place] (15 min) Moderate 06/23/2016 Patient Education: Patient Medication Summary Completed 06/23/2016 Care Plan: Urinalysis Pending 06/23/2016 Appointment: Meli Malone WPtel: [address] [place] [address] [place] (10 min) Simple 06/15/2016 Patient Education: Patient Medication Summary Completed 06/15/2016 Appointment: Lab Draw 06/11/2016 Patient Education: Patient Medication Summary Completed 06/11/2016 Patient Education: Patient Medication Summary Completed 06/11/2016 Appointment: Josiane Berry WPtel: [phone] [place] (15 min) Moderate 06/05/2016 Patient Education: Patient Medication Summary Completed 06/05/2016 Appointment: Josiane Berry WPtel: [address] [place] [phone] (15 min) Moderate 06/01/2016 Patient Education: Patient Medication Summary Completed 06/01/2016 App[facility]ment: [facility] [phone] [facility] (15 min) Moderate 05/28/2016 Patient Education: Patient Medication Summary Completed 05/28/2016 Appointment: Josiane Berry WPtel: [phone] (15 min) Moderate 05/11/2016 Patient Education: Patient Medication Summary Completed 05/11/2016 Appointment: Nurse Visit 05/06/2016 Patient Education: Patient Medication Summary Completed 05/06/2016 Appointment: Mera Amador WPtel: [facility] [facility] 04/30/2016 Patient Education: Patient Medication Summary Completed 04/30/2016 Referral: External, Ordering Provider Referral Initiated Instructions No Instructions
--- OUTSIDE RECORDS SUMMARY | 2017-07-04 04:27 | XMS REPORT | CCD ---
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 Name Role Phone PP Unavailable CCM Unavailable Summary Purpose Interface Exchange Insurance Providers Payer name Policy type / Coverage type Covered republican ID Effective Begin Date Effective End Date WPS Medicare Part B Medicare Part B [id number] Unknown Unknown AARP Medicare Part B [id number] Unknown Unknown Family History Family History data not found Social History Social History Element Codes Description Effective Dates Marital status Unknown 04/30/[address]: 695146980 Never smoker 04/30/[address]: 970345223 Never drinks alcohol 04/30/2016 Allergies, Adverse Reactions, Alerts Substance Reaction Codes Entered Date Inactivated Date Status cephalexin rash RxNorm: 2231 10/28/2016 No Inactive Date Active ultram pruritis RxNorm: 63958 08/24/2016 No Inactive Date Active Past Medical [...] 06/15/2016 Unknown Pelvic and perineal pain ICD-9: [id number] ICD-10: R10.2 Active 08/03/2016 Unknown Vitamin B12 [...] 06/15/2016 Active Pelvic and perineal pain ICD-9: [id number] ICD-10: R10.2 08/03/2016 Active Vitamin B12 deficiency [...] Instructions Augmentin 500 mg-125 mg tablet RxNorm: 710649 1 Tablet(s) PO TID 05/11/2017 05/17/2017 Active Xanax 0.25 mg tablet RxNorm: 545972 1/2-1 Tablet(s) PO TID as needed 05/07/2017 07/05/2017 Active omeprazole 40 mg capsule,delayed release RxNorm: 760888 TAKE ONE CAPSULE BY MOUTH ONCE DAILY 05/06/2017 No Stop Date Active prednisone 10 mg tablet RxNorm: 350346 Tablet(s) PO UD 2017 No Stop Date Active 20,20,10,10 Tessalon Perles 100 mg capsule RxNorm: 743835 1-2 Capsule(s) PO TID as needed cough 04/23/2017 No Stop Date Active prednisone 10 mg tablet RxNorm: 047612 Tablet(s) PO 04/23/2017 No Stop Date Active 6, 5,4,3,2,1 doxycycline hyclate 100 mg capsule RxNorm: 7873350 1 Capsule(s) PO BID 04/23/2017 05/02/2017 Inactive Kenalog 40 mg/mL suspension for injection RxNorm: 5491559 1 Milliliter(s) Inj 04/23/2017 04/23/2017 Inactive Cipro 500 mg tablet RxNorm: 100662 1 Tablet(s) PO BID 201704/16/2017 Inactive Cipro 500 mg tablet RxNorm: 103402 1 Tablet(s) PO BID 201603/25/2017 Inactive hydrocodone 5 mg-acetaminophen 325 mg tablet RxNorm: 453188 1 Tablet(s) PO Q6 as needed 03/05/2017 03/19/2017 Inactive Diflucan 150 mg tablet RxNorm: 641860 1 Tablet(s) PO daily 03/05/2017 Inactive Diflucan 150 mg tablet RxNorm: 759867 1 Tablet(s) PO daily 02/28/2017 Inactive Seasonique 0.15 mg-30 mcg (84)/10 mcg(7) tablets,3 month dose pack RxNorm: 748103 1 Tablet(s) PO UD 02/24/2017 02/24/2017 Inactive losartan 50 mg tablet RxNorm: 998903 TAKE ONE TABLET BY MOUTH ONCE DAILY IN THE MORNING 02/23/2017 No Stop Date Active Diflucan 150 mg tablet RxNorm: 353371 1 Tablet(s) PO daily 09/201602/14/2017 Inactive Cipro 500 mg tablet RxNorm: 370873 1 Tablet(s) PO BID 201601/21/2017 Inactive Augmentin 500 mg-125 mg tablet RxNorm: 347111 1 Tablet(s) PO TID 12/30/2016 12/29/2016 Inactive Augmentin 500 mg-125 mg tablet RxNorm: 602070 1 Tablet(s) PO TID 12/30/2016 01/05/2017 Inactive hydrocodone 5 mg-acetaminophen 325 mg tablet RxNorm: 329769 1 Tablet(s) PO Q6 as needed 12/24/2016 01/07/2017 Inactive omeprazole 40 mg capsule,delayed release RxNorm: 562142 TAKE ONE CAPSULE BY MOUTH ONCE DAILY 12/08/2016 04/06/2017 Inactive Diflucan 150 mg tablet RxNorm: 336759 1 Tablet(s) PO daily 12/02/2016 Inactive Xanax 0.25 mg tablet RxNorm: 937873 1/2-1 Tablet(s) PO TID as needed 11/24/2016 01/20/2017 Inactive Xanax 0.25 mg tablet RxNorm: 008877 1/2-1 Tablet(s) PO TID as needed 11/24/2016 01/22/2017 Inactive sucralfate 1 gram tablet RxNorm: 511753 TAKE ONE TABLET BY MOUTH BEFORE MEALS AND AT BEDTIME 11/20/2016 12/19/2016 Inactive Diflucan 150 mg tablet RxNorm: 936283 1 Tablet(s) PO daily 11/22/2016 Inactive Levaquin 500 mg tablet RxNorm: 965304 1 Tablet(s) PO daily 10/201611/08/2016 Inactive Levaquin 500 mg tablet RxNorm: 167551 1 Tablet(s) PO daily 10/201611/15/2016 Inactive losartan 50 mg tablet RxNorm: 840339 1 Tablet(s) PO QAM 201602/22/2017 Inactive hydrocodone 5 mg-acetaminophen 325 mg tablet RxNorm: 806642 1 Tablet(s) PO Q6 as needed 10/26/2016 11/09/2016 Inactive Kenalog 40 mg/mL suspension for injection RxNorm: 1919826 1 Milliliter(s) Inj 10/08/2016 10/08/2016 Inactive prednisone 5 mg tablets in a dose pack RxNorm: 186414 1 Tablet(s) PO UD 10/08/2016 10/12/2016 Inactive 6-5-4-3-2-1 Diflucan 150 mg tablet RxNorm: 206751 1 Tablet(s) PO daily 06/201610/04/2016 Inactive Diflucan 150 mg tablet RxNorm: 541058 1 Tablet(s) PO daily 06/201610/09/2016 Inactive Lexapro 10 mg tablet RxNorm: 794630 1 Tablet(s) PO QHS 201601/26/2017 Inactive cefdinir 300 mg capsule RxNorm: 752276 1 Capsule(s) PO BID 10/07/2016 Inactive Lexapro 5 mg tablet RxNorm: 822594 1 Tablet(s) PO QHS 201609/28/2016 Inactive trimethoprim 100 mg tablet RxNorm: 162373 1 Tablet(s) PO daily 09/03/2016 03/01/2017 Inactive hydrocodone 5 mg-acetaminophen 325 mg tablet RxNorm: 274632 1 Tablet(s) PO Q6 as needed 08/28/2016 09/11/2016 Inactive Diflucan 150 mg tablet RxNorm: 709603 1 Tablet(s) PO QW as needed symptoms of thrush 08/26/2016 09/28/2016 Inactive Xanax 0.25 mg tablet RxNorm: 023876 1/2-1 Tablet(s) PO TID as needed 08/24/2016 10/20/2016 Inactive tramadol 50 mg tablet RxNorm: 192826 1-2 Tablet(s) PO Q6 as needed for pain 08/14/2016 09/28/2016 Inactive amoxicillin 500 mg capsule RxNorm: 934847 1 Capsule(s) PO TID 08/11/2016 08/20/2016 Inactive nystatin 100,000 unit/mL oral suspension RxNorm: 302005 5 Milliliter(s) PO QID 08/11/2016 08/17/2016 Inactive cefdinir 300 mg capsule RxNorm: 056314 1 Capsule(s) PO BID 12/201608/20/2016 Inactive losartan 50 mg tablet RxNorm: 454512 1 Tablet(s) PO QAM 201610/24/2016 Inactive fluconazole 200 mg tablet RxNorm: 315126 1 Tablet(s) PO daily 07/19/2016 07/28/2016 Inactive cefuroxime axetil 500 mg tablet RxNorm: 672221 1 Tablet(s) PO BID 07/19/2016 08/02/2016 Inactive Xanax 0.25 mg tablet RxNorm: 507250 1/2-1 Tablet(s) PO QDAY PRN 07/14/2016 08/23/2016 Inactive cyanocobalamin (vit B-12) 1,000 mcg/mL injection solution RxNorm: 358560 1 Milliliter(s) Inj 07/14/2016 07/14/2016 Inactive Diflucan 150 mg tablet RxNorm: 452158 1 Tablet(s) PO daily 10/201607/17/2016 Inactive Keflex 250 mg capsule RxNorm: 649932 1 Capsule(s) PO QHS 201607/13/2016 Inactive Lexapro 5 mg tablet RxNorm: 771604 1 Tablet(s) PO QHS TO START AFTER YOU ARE FINISHED WITH THE DIFLUCAN!! 06/30/2016 Inactive cefuroxime axetil 250 mg tablet RxNorm: 255517 1 Tablet(s) PO BID 06/26/2016 06/25/2016 Inactive ceftriaxone 500 mg solution for injection RxNorm: 7893280 1 Milliliter(s) Inj 06/26/2016 06/26/2016 Inactive cefuroxime axetil 250 mg tablet RxNorm: 130480 1 Tablet(s) PO BID 06/26/2016 07/05/2016 Inactive Diflucan 150 mg tablet RxNorm: 617590 1 Tablet(s) PO QW as needed symptoms of thrush 06/23/2016 08/02/2016 Inactive Zantac 150 mg tablet RxNorm: 251475 1 Tablet(s) PO daily 201607/14/2016 Inactive Xanax 0.25 mg tablet RxNorm: 517514 1/2-1 Tablet(s) PO HS PRN 06/05/2016 07/13/2016 Inactive Keflex 250 mg capsule RxNorm: 297892 1 Capsule(s) PO QHS as needed 06/05/2016 07/04/2016 Inactive Cipro 500 mg tablet RxNorm: 782325 1 Tablet(s) PO BID 201606/07/2016 Inactive ceftriaxone 500 mg solution for injection RxNorm: 2773756 1 Milliliter(s) Inj 05/28/2016 05/28/2016 Inactive cefdinir 300 mg capsule RxNorm: 215803 1 Capsule(s) PO BID 05/31/2016 Inactive metronidazole 500 mg tablet RxNorm: 076831 1 Tablet(s) PO BID 05/28/2016 06/03/2016 Inactive sucralfate 1 gram tablet RxNorm: 786636 1 Tablet(s) PO AC & HS 05/21/2016 07/20/2016 Inactive sucralfate 1 gram tablet RxNorm: 925907 1 Tablet(s) PO AC & HS 05/21/2016 05/20/2016 Inactive omeprazole 40 mg capsule,delayed release RxNorm: 682897 1 Capsule(s) PO daily 05/21/2016 08/18/2016 Inactive omeprazole 40 mg capsule,delayed release RxNorm: 496226 1 Capsule(s) PO daily 05/21/2016 05/20/2016 Inactive losartan 50 mg tablet RxNorm: 020832 1 Tablet(s) PO QAM 201607/26/2016 Inactive latanoprost 0.005 % eye drops RxNorm: 132367 1 Drop(s) OPH daily No Start Date Active Culturelle 15 billion cell sprinkle capsule RxNorm: 6703819 1 Capsule(s) PO TID No Start Date Active Calcium 500 + D (D3) oral RxNorm: 278613 oral No Start Date Active cranberry 500 mg capsule RxNorm: 573262 1 Capsule(s) PO daily No Start Date Active Ocuvite Lutein and Zeaxanthin 60 mg-30 unit-15 mg-2 mg-6 mg capsule RxNorm: 641063 1 Capsule(s) PO daily No Start Date Active Pyridium 200 mg tablet RxNorm: 2064429 1 Tablet(s) PO TID as needed No Start Date Active Toviaz 4 mg tablet,extended release RxNorm: 146095 1 Tablet(s) PO daily No Start Date Active Klor-Con 10 mEq tablet,extended release RxNorm: 884943 1 Tablet(s) PO BID No Start Date Active Estrace 0.01% (0.1 mg/gram) vaginal cream RxNorm: 831148 1 Application VAG TIW No Start Date 07/13/2016 Inactive allopurinol 300 mg tablet RxNorm: 306531 1 Tablet(s) PO daily No Start Date 06/22/2016 Inactive triamterene 37.5 mg-hydrochlorothiazide 25 mg tablet RxNorm: 537695 1 Tablet(s) PO daily No Start Date 10/07/2016 Inactive Seasonique 0.15 mg-30 mcg (84)/10 mcg(7) tablets,3 month dose pack RxNorm: 802254 1 Tablet(s) PO UD No Start Date 2016 Inactive hydrocodone 5 mg-acetaminophen 325 mg tablet RxNorm: 400273 1 Tablet(s) PO as needed No Start Date 08/27/2016 Inactive meloxicam 7.5 mg tablet RxNorm: 249344 1 Tablet(s) PO daily as needed No Start Date 10/07/2016 Inactive Multivitamins FC tablet RxNorm: 1 Tablet(s) PO daily No Start Date 10/07/2016 Inactive Fish Oil 1,000 mg capsule RxNorm: 1 Capsule(s) PO BID No Start Date 05/27/2016 Inactive tramadol 50 mg tablet RxNorm: 595483 1-2 Tablet(s) PO Q6 as needed for pain No Start Date 08/13/2016 Inactive Medication Administered Medication Codes Instructions Start Date Status Kenalog 40 mg/mL suspension for injection RxNorm: 5343870 1Milliliter 04/23/2017 No longer Active Kenalog 40 mg/mL suspension for injection RxNorm: 7760445 1Milliliter 10/08/2016 No longer Active cyanocobalamin (vit B-12) 1,000 mcg/mL injection solution RxNorm: 969918 1Milliliter 07/14/2016 No longer Active ceftriaxone 500 mg solution for injection RxNorm: 1857085 1Milliliter 06/26/2016 No longer Active ceftriaxone 500 mg solution for injection RxNorm: 3355065 1Milliliter 05/28/2016 No longer Active Immunizations Vaccine [...] Pelvic and perineal pain ICD-10: R10.2 ICD-9: [id number] 08/11/2016 Hypo-osmolality and hyponatremia ICD-10: E87.1 ICD-9: [...] sent to ref lab 05/13/2017 Culture Urine [id number] URINE CULTURE SEE NOTES 04/06/2017 Culture Urine [id number] Continued Results 04/06/2017 Urine Culture Ucult Complete >100,000 col/ml aerobic growth sent to ref lab 04/02/2017 Culture Urine [id number] URINE CULTURE SEE NOTES 03/22/2017 Culture Urine [id number] Continued Results 03/22/2017 Urine Culture Ucult Complete >100,000 col/ml aerobic growth sent to ref lab 03/20/2017 Comp Metabolic Pwx800 NA 131 mEq/L 03/19/2017 Comp Metabolic Qqt953 K 4.0 mEq/L 03/19/2017 Comp Metabolic Kha730 CL 93 mEq/L 03/19/2017 Comp Metabolic Ius406 CO2 28.0 mEq/L 03/19/2017 Comp Metabolic Zkz277 ANION GAP 14 03/19/2017 Comp Metabolic Uus309 GLUCOSE 94 mg/dL 03/19/2017 Comp Metabolic Dyz574 Creat 0.8 mg/dL 03/19/2017 Comp Metabolic Wri272 eGFR 69 ml/min/1.73m2 03/19/2017 Comp Metabolic Atb288 BUN 16 mg/dL 03/19/2017 Comp Metabolic Dqd157 B/C Ratio 19.3 Ratio 03/19/2017 Comp Metabolic Mwy095 CALCIUM 9.5 mg/dL 03/19/2017 Comp Metabolic Ptp479 ALK PHOS 54 U/L 03/19/2017 Comp Metabolic Wqz748 AST(SGOT) 22 U/L 03/19/2017 Comp Metabolic Bwp316 ALT(SGPT) 18 U/L 03/19/2017 Comp Metabolic Smi041 BILI T 0.4 mg/dL 03/19/2017 Comp Metabolic Crj189 ALBUMIN 4.2 g/dL 03/19/2017 Comp Metabolic Yvh756 TPRO 6.2 g/dL 03/19/2017 Comp Metabolic Hvb062 GLOB 2.0 g/dL 03/19/2017 Comp Metabolic Fki122 A/G Ratio 2.2 Ratio 03/19/2017 Comp Metabolic Azj498 Osmo 264 mOsmo 03/19/2017 Cbc With Differential [...] 34.3 pg 03/19/2017 Cbc With Differential Ord2 [facility]% 10.3 % 03/19/2017 Cbc With Differential Ord2 [...] 1.49 K/ul 03/19/2017 Cbc With Differential Ord2 [facility] ABS# 1.2 K/ul 03/19/2017 Cbc With Differential [...] Ord15 CALCIUM 9.3 mg/dL 08/11/2016 Culture Urine [id number] URINE CULTURE SEE NOTES 08/10/2016 Culture Urine [id number] Continued Results 08/10/2016 Urine Culture Ucult Complete >100,000 col/ml aerobic growth sent to ref lab 08/07/2016 Comp Metabolic Beu947 NA 132 mEq/L 07/10/2016 Comp Metabolic Hjn643 K 3.9 mEq/L 07/10/2016 Comp Metabolic Jff048 CL 94 mEq/L 07/10/2016 Comp Metabolic Jas662 CO2 28.0 mEq/L 07/10/2016 Comp Metabolic Bfo297 ANION GAP 14 07/10/2016 Comp Metabolic Whf058 GLUCOSE 96 mg/dL 07/10/2016 Comp Metabolic Ore871 Creat 0.8 mg/dL 07/10/2016 Comp Metabolic Stp385 eGFR 70 ml/min/1.73m2 07/10/2016 Comp Metabolic Ndx106 BUN 22 mg/dL 07/10/2016 Comp Metabolic Vqx027 B/C Ratio 26.8 Ratio 07/10/2016 Comp Metabolic Ylk189 CALCIUM 10.2 mg/dL 07/10/2016 Comp Metabolic Toc185 ALK PHOS 50 U/L 07/10/2016 Comp Metabolic Uec708 AST(SGOT) 21 U/L 07/10/2016 Comp Metabolic Nfy169 ALT(SGPT) 19 U/L 07/10/2016 Comp Metabolic Brl488 BILI T 0.5 mg/dL 07/10/2016 Comp Metabolic Qst517 ALBUMIN 4.2 g/dL 07/10/2016 Comp Metabolic Hrl437 TPRO 6.6 g/dL 07/10/2016 Comp Metabolic Gfk823 GLOB 2.4 g/dL 07/10/2016 Comp Metabolic Lfy151 A/G Ratio 1.8 Ratio 07/10/2016 Comp Metabolic Hgu367 Osmo 268 mOsmo 07/10/2016 Wet Prep [id number] Yeast Vaginal TNP:Duplicate Order 2016 Wet Prep [id number] Trichomonas TNP:Duplicate Order 07/10/2016 Cbc With Differential [...] 34.6 pg 07/10/2016 Cbc With Differential Ord2 [facility]% 10.7 % 07/10/2016 Cbc With Differential Ord2 [...] 1.35 K/ul 07/10/2016 Cbc With Differential Ord2 [facility] ABS# 0.9 K/ul 07/10/2016 Cbc With Differential Ord2 Eos ABS# 0.1 K/ul 07/10/2016 Cbc With Differential Ord2 Baso ABS# 0.0 K/ul 07/10/2016 Wet Prep [id number] Yeast Vaginal None 07/10/2016 Wet Prep [id number] Trichomonas None 07/10/2016 Comp Metabolic Zqj153 NA 131 mEq/L 07/03/2016 Comp Metabolic Yrp585 K 4.4 mEq/L 07/03/2016 Comp Metabolic Twi902 CL 92 mEq/L 07/03/2016 Comp Metabolic Kpc464 CO2 28.0 mEq/L 07/03/2016 Comp Metabolic Qev017 ANION GAP 15 07/03/2016 Comp Metabolic Zbe977 GLUCOSE 96 mg/dL 07/03/2016 Comp Metabolic Nkr095 Creat 0.8 mg/dL 07/03/2016 Comp Metabolic Jvs690 eGFR 76 ml/min/1.73m2 07/03/2016 Comp Metabolic Ckc984 BUN 22 mg/dL 07/03/2016 Comp Metabolic Gco795 B/C Ratio 28.9 Ratio 07/03/2016 Comp Metabolic Skl424 CALCIUM 10.3 mg/dL 07/03/2016 Comp Metabolic Juy904 ALK PHOS 49 U/L 07/03/2016 Comp Metabolic Yyb718 AST(SGOT) 21 U/L 07/03/2016 Comp Metabolic Xqh458 ALT(SGPT) 19 U/L 07/03/2016 Comp Metabolic Nid391 BILI T 0.5 mg/dL 07/03/2016 Comp Metabolic Hzs559 ALBUMIN 4.3 g/dL 07/03/2016 Comp Metabolic Xga842 TPRO 6.7 g/dL 07/03/2016 Comp Metabolic Lhx674 GLOB 2.4 g/dL 07/03/2016 Comp Metabolic Wrf086 A/G Ratio 1.8 Ratio 07/03/2016 Comp Metabolic Ppk949 Osmo 266 mOsmo 07/03/2016 Cbc With Differential [...] 33.9 pg 07/03/2016 Cbc With Differential Ord2 [facility]% 10.3 % 07/03/2016 Cbc With Differential Ord2 [...] 1.40 K/ul 07/03/2016 Cbc With Differential Ord2 [facility] ABS# 0.9 K/ul 07/03/2016 Cbc With Differential [...] Ord62 ANION GAP 12 06/11/2016 Comp Metabolic Qrh430 NA 127 mEq/L 06/05/2016 Comp Metabolic Lrx933 K 4.0 mEq/L 06/05/2016 Comp Metabolic Xdo242 CL 94 mEq/L 06/05/2016 Comp Metabolic Aam496 CO2 26.0 mEq/L 06/05/2016 Comp Metabolic Mmf470 ANION GAP 11 06/05/2016 Comp Metabolic Tyw234 GLUCOSE 101 mg/dL 06/05/2016 Comp Metabolic Ngr570 Creat 0.7 mg/dL 06/05/2016 Comp Metabolic Ojh785 eGFR 80 ml/min/1.73m2 06/05/2016 Comp Metabolic Lpm091 BUN 15 mg/dL 06/05/2016 Comp Metabolic Dup391 B/C Ratio 20.5 Ratio 06/05/2016 Comp Metabolic Mso643 CALCIUM 9.2 mg/dL 06/05/2016 Comp Metabolic Kya035 ALK PHOS 43 U/L 06/05/2016 Comp Metabolic Iwb200 AST(SGOT) 32 U/L 06/05/2016 Comp Metabolic Ydg455 ALT(SGPT) 43 U/L 06/05/2016 Comp Metabolic Ssg400 BILI T 0.4 mg/dL 06/05/2016 Comp Metabolic Imb008 ALBUMIN 4.3 g/dL 06/05/2016 Comp Metabolic Qyg498 TPRO 6.2 g/dL 06/05/2016 Comp Metabolic Vle413 GLOB 2.0 g/dL 06/05/2016 Comp Metabolic Qff410 A/G Ratio 2.2 Ratio 06/05/2016 Comp Metabolic Ncq601 Osmo 256 mOsmo 06/05/2016 Cbc With Differential [...] 34.8 pg 06/05/2016 Cbc With Differential Ord2 [facility]% 11.1 % 06/05/2016 Cbc With Differential Ord2 [...] 1.03 K/ul 06/05/2016 Cbc With Differential Ord2 [facility] ABS# 0.8 K/ul 06/05/2016 Cbc With Differential Ord2 Eos ABS# 0.0 K/ul 06/05/2016 Cbc With Differential Ord2 Baso ABS# 0.0 K/ul 06/05/2016 Culture Urine [id number] URINE CULTURE SEE NOTES 06/01/2016 Culture Urine [id number] Continued Results 06/01/2016 Urine Culture Ucult Complete [...] Codes Date URINALYSIS NONAUTO W/O SCOPE CPT-4: 49836 05/11/2017 THER/PROPH/DIAG INJ SC/IM CPT-4: 05377 04/23/2017 TRIAMCINOLONE ACET INJ NOS CPT-4: J3301 04/23/2017 URINALYSIS NONAUTO W/O SCOPE CPT-4: 69717 04/01/2017 URINALYSIS NONAUTO W/O SCOPE CPT-4: 86532 03/05/2017 FLU VACC PRSV FREE INC ANTIG CPT-4: 81605 12/18/2016 ADMIN INFLUENZA VIRUS VAC CPT-4: G0008 12/18/2016 URINALYSIS NONAUTO W/O SCOPE CPT-4: 60575 11/26/2016 URINALYSIS NONAUTO W/O SCOPE CPT-4: 46446 11/06/2016 URINALYSIS NONAUTO W/O SCOPE CPT-4: 16483 10/16/2016 TRIAMCINOLONE ACET INJ NOS CPT-4: J3301 10/08/2016 URINALYSIS NONAUTO W/O SCOPE CPT-4: 38170 09/03/2016 URINALYSIS NONAUTO W/O SCOPE CPT-4: 36264 08/24/2016 URINALYSIS NONAUTO W/O SCOPE CPT-4: 63009 08/06/2016 THER/PROPH/DIAG INJ SC/IM CPT-4: 75356 07/14/2016 VITAMIN B12 INJECTION CPT-4: J3420 07/14/2016 URINALYSIS NONAUTO W/O SCOPE CPT-4: 62346 07/03/2016 THER/PROPH/DIAG INJ SC/IM CPT-4: 51959 06/26/2016 ROCEPHIN, PER 250 MG CPT-4: J0696 06/26/2016 URINALYSIS NONAUTO W/O SCOPE CPT-4: 20632 06/23/2016 URINALYSIS NONAUTO W/O SCOPE CPT-4: 77471 06/11/2016 URINALYSIS NONAUTO W/O SCOPE CPT-4: 55473 05/28/2016 THER/PROPH/DIAG INJ SC/IM CPT-4: 70352 05/28/2016 ROCEPHIN, PER 250 MG CPT-4: J0696 05/28/2016 REMOVAL OF IMPACTED WAX CPT-4: G0268 05/06/2016 Vital Signs Date Vital 04/23/2017 Blood Pressure 1: 132/78 Code : 8480-6 BMI: 27.8 Code : 99285-2 Heart Rate 1 : 76 bpm Height: 5'4" SpO2: 98% Temperature: 36.8 (C) / 98.2 (F) Weight: 162 lbs 03/19/2017 Blood Pressure 1: 144/76 Code : 8480-6 BMI: 26.3 Code : 49500-6 Heart Rate 1 : 102 bpm Height: 5'4" SpO2: 98% Temperature: 36.8 (C) / 98.3 (F) Weight: 153 lbs 03/08/2017 Blood Pressure 1: 136/80 Code : 8480-6 BMI: 26.9 Code : 77975-1 Heart Rate 1 : 76 bpm Height: 5'4" SpO2: 96% Weight: 157 lbs 02/02/2017 Blood Pressure 1: 148/68 Code : 8480-6 BMI: 26.9 Code : 28930-1 Heart Rate 1 : 76 bpm Height: 5'4" SpO2: 97% Weight: 157 lbs 01/15/2017 Blood Pressure 1: 142/76 Code : 8480-6 BMI: 26.9 Code : 83937-8 Heart Rate 1 : 86 bpm Height: 5'4" SpO2: 97% Weight: 157 lbs 12/30/2016 Blood Pressure 1: 140/76 Code : 8480-6 BMI: 26.9 Code : 02163-8 Heart Rate 1 : 84 bpm Height: 5'4" SpO2: 97% Weight: 157 lbs 12/22/2016 Blood Pressure 1: 130/78 Code : 8480-6 BMI: 26.9 Code : 80627-6 Heart Rate 1 : 80 bpm Height: 5'4" SpO2: 97% Weight: 157 lbs 12/18/2016 BMI: 26.9 Code: 58293-7 Height: 5'4" Weight: 157 lbs 11/20/2016 Blood Pressure 1: 134/60 Code : 8480-6 BMI: 25.9 Code : 89255-0 Heart Rate 1 : 80 bpm Height: 5'4" SpO2: 97% Weight: 151 lbs 11/16/2016 BMI: 25.6 Code: 24481-2 Heart Rate 1: 74 bpm Height: 5'4" SpO2: 97% Weight: 149 lbs 10/28/2016 Blood Pressure 1: 128/70 Code : 8480-6 BMI: 25.7 Code : 25487-7 Heart Rate 1 : 70 bpm Height: 5'4" SpO2: 96% Weight: 150 lbs 10/13/2016 Blood Pressure 1: 130/78 Code : 8480-6 Heart Rate 1: 69 bpm Height: 5'4" SpO2: 98% 10/08/2016 Blood Pressure 1: 122/70 Code : 8480-6 BMI: 25.6 Code : 94654-5 Heart Rate 1 : 79 bpm Height: 5'4" SpO2: 97% Temperature: 37.0 (C) / 98.6 (F) Weight: 149 lbs 09/29/2016 Blood Pressure 1: 124/70 Code : 8480-6 BMI: 25.4 Code : 63452-5 Heart Rate 1 : 74 bpm Height: 5'4" SpO2: 94% Weight: 148 lbs 09/03/2016 Blood Pressure 1: 120/68 Code : 8480-6 BMI: 24.7 Code : 19216-9 Heart Rate 1 : 59 bpm Height: 5'4" SpO2: 97% Weight: 144 lbs 08/24/2016 Blood Pressure 1: 128/74 Code : 8480-6 BMI: 24.7 Code : 38685-3 Heart Rate 1 : 75 bpm Height: 5'4" SpO2: 97% Weight: 144 lbs 08/11/2016 Blood Pressure 1: 142/76 Code : 8480-6 BMI: 24.9 Code : 83520-5 Heart Rate 1 : 77 bpm Height: 5'4" SpO2: 96% Weight: 145 lbs 08/03/2016 Blood Pressure 1: 142/78 Code : 8480-6 BMI: 25.1 Code : 42645-4 Heart Rate 1 : 75 bpm Height: 5'4" SpO2: 97% Temperature: 36.9 (C) / 98.5 (F) Weight: 146 lbs 07/27/2016 Blood Pressure 1: 158/80 Code : 8480-6 BMI: 25.1 Code : 37758-2 Heart Rate 1 : 72 bpm Height: 5'4" SpO2: 98% Weight: 146 lbs 07/21/2016 Blood Pressure 1: 144/76 Code : 8480-6 BMI: 25.1 Code : 48966-9 Heart Rate 1 : 80 bpm Height: 5'4" SpO2: 94% Temperature: 37.3 (C) / 99.2 (F) Weight: 146 lbs 07/14/2016 Blood Pressure 1: 128/74 Code : 8480-6 BMI: 25.1 Code : 65572-9 Heart Rate 1 : 79 bpm Height: 5'4" SpO2: 97% Temperature: 37.2 (C) / 98.9 (F) Weight: 146 lbs 8 oz 07/10/2016 Blood Pressure 1: 148/78 Code : 8480-6 BMI: 25.1 Code : 29654-0 Heart Rate 1 : 82 bpm Height: 5'4" SpO2: 96% Temperature: 37.2 (C) / 99.0 (F) Weight: 146 lbs 8 oz 07/03/2016 Blood Pressure 1: 134/76 Code : 8480-6 Heart Rate 1: 79 bpm Height: 5'4" SpO2: 98% Temperature: 36.9 (C) / 98.4 (F) 06/30/2016 Blood Pressure 1: 138/78 Code : 8480-6 BMI: 25.1 Code : 81011-3 Heart Rate 1 : 90 bpm Height: 5'4" SpO2: 97% Weight: 146 lbs 06/23/2016 Blood Pressure 1: 132/58 Code : 8480-6 BMI: 25.7 Code : 91604-9 Heart Rate 1 : 85 bpm Height: 5'4" SpO2: 97% Weight: 150 lbs 06/15/2016 Blood Pressure 1: 134/62 Code : 8480-6 BMI: 26.4 Code : 16049-5 Heart Rate 1 : 75 bpm Height: 5'4" SpO2: 95% Weight: 154 lbs 06/05/2016 Blood Pressure 1: 156/80 Code : 8480-6 BMI: 26.4 Code : 89990-3 Heart Rate 1 : 92 bpm Height: 5'4" SpO2: 98% Weight: 154 lbs 06/01/2016 Blood Pressure 1: 135/80 Code : 8480-6 Heart Rate 1: 95 bpm SpO2: 97% Temperature: 37.1 (C) / 98.8 (F) 05/28/2016 Blood Pressure 1: 140/80 Code : 8480-6 BMI: 26.1 Code : 14794-9 Heart Rate 1 : 89 bpm Height: 5'4" SpO2: 96% Weight: 152 lbs 05/11/2016 Blood Pressure 1: 154/86 Code : 8480-6 Heart Rate 1: 89 bpm Height: 5'4" SpO2: 95% Weight: 04/30/2016 Blood Pressure 1: 142/72 Code : 8480-6 BMI: 26.3 Code : 85446-1 Heart Rate 1 : 87 bpm Height: [...] data Encounters Encounter Performer Location Codes Date 14067 EST. PATIENT, LEVEL III Diagnosis: Acute laryngopharyngitis[ICD10: J06.0] Diagnosis: Other allergic rhinitis[ICD10: J30.89] Diagnosis: Slow transit constipation[ICD10: K59.01] [facility] CPT-4: 98351 04/23/2017 [id number] EST. PATIENT, LEVEL III Diagnosis: Dysuria[ICD10: R30.0] Diagnosis: Other malaise[ICD10: R53.81] Diagnosis: Other fatigue[ICD10: R53.83] Diagnosis: Generalized anxiety disorder[ICD10: F41.1] Meli Amador MD, [facility] CPT-4: 52907 03/19/2017 07273 EST. PATIENT, LEVEL III Diagnosis: Left lower quadrant pain[ICD10: R10.32] Meli Amador MD, [facility] CPT-4: 67964 03/08/2017 52393 EST. PATIENT, LEVEL III Diagnosis: Dysuria[ICD10: R30.0] Diagnosis: Generalized anxiety disorder[ICD10: F41.1] Meli Amador MD, [facility] CPT-4: 04623 02/02/2017 14694 EST. PATIENT, LEVEL III Diagnosis: Generalized anxiety disorder[ICD10: F41.1] Diagnosis: Urinary tract infection, site not specified[ICD10: N39.0] Meli Amador MD, [facility] CPT-4: 19595 01/15/2017 97236 EST. PATIENT, LEVEL IV Diagnosis: Dysuria[ICD10: R30.0] Diagnosis: Rash and other nonspecific skin eruption[ICD10: R21] Meli Amador MD, [facility] CPT-4: 23383 12/30/2016 71384 EST. PATIENT, LEVEL IV Diagnosis: Localized edema[ICD10: R60.0] Diagnosis: Pain in left lower leg[ICD10: M79.662] Diagnosis: Dysuria[ICD10: R30.0] Meli Amador MD, [facility] CPT-4: 27856 12/22/2016 76774 EST. PATIENT, LEVEL IV Diagnosis: 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[ICD10: I83.92] Diagnosis: Urinary tract infection, site not specified[ICD10: N39.0] Diagnosis: Encounter for immunization[ICD10: Z23] [facility] MD, [facility] [facility] CPT-[facility] 14478 12/18/2016 ([id number]) 20112 EST. PATIENT, LEVEL III Diagnosis: 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[ICD10: I83.92] Diagnosis: Urinary tract infection, site not specified[ICD10: N39.0] Josiane Amador MD [facility] CPT-4: 80335 11/20/2016 69158 EST. PATIENT, LEVEL III Diagnosis: Dysuria[ICD10: R30.0] Meli Amador MD [facility] CPT-4: 94609 11/16/2016 ([id number]) 47202 EST. PATIENT, LEVEL III Diagnosis: Generalized anxiety disorder[ICD10: F41.1] Diagnosis: Urinary tract infection, site not specified[ICD10: N39.0] Mera Amador MD [facility] CPT-4: 71210 10/28/2016 ([id number]) 58670 EST. 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 PATIENT, LEVEL III Diagnosis: Dysuria[ICD10: R30.0] Diagnosis: Essential (primary) hypertension[ICD10: I10] Mera Amador MD [facility] CPT-4: 51700 09/29/2016 ([id number]) 77775 EST. PATIENT, LEVEL III Diagnosis: Generalized anxiety disorder[ICD10: F41.1] Diagnosis: Dysuria[ICD10: R30.0] Diagnosis: Personal history of urinary (tract) infections[ICD10: Z87.440] Mera Amador MD, [facility] CPT-4: 83869 09/03/2016 ([id number]) 61311 EST. PATIENT, LEVEL IV Diagnosis: Essential (primary) hypertension[ICD10: I10] Diagnosis: Generalized anxiety disorder[ICD10: F41.1] Diagnosis: Dysuria[ICD10: R30.0] Mera Amador MD, [facility] CPT-4: 86838 08/24/2016 26299 EST. PATIENT, LEVEL IV Diagnosis: Hypo-osmolality and hyponatremia[ICD10: E87.1] Diagnosis: Generalized anxiety disorder[ICD10: F41.1] Diagnosis: Pelvic and perineal pain[ICD10: R10.2] Diagnosis: Candidal stomatitis[ICD10: B37.0] Meli Amador MD, [facility] CPT -4: 61082 08/11/2016 ([id number]) 23607 EST. PATIENT, LEVEL III Diagnosis: Generalized anxiety disorder[ICD10: F41.1] Diagnosis: Pelvic and perineal pain[ICD10: R10.2] Josiane Amador MD, [facility] CPT-4: 68056 08/03/2016 64790 EST. PATIENT, LEVEL IV Diagnosis: Generalized anxiety disorder[ICD10: F41.1] Diagnosis: Pelvic and perineal pain[ICD10: R10.2] Diagnosis: Gastro-esophageal reflux disease without esophagitis[ICD10: K21.9] Meli Amador MD, [facility] CPT-4: 97441 07/27/2016 ([id number]) 54424 EST. PATIENT, LEVEL III Diagnosis: Urinary tract infection, site not specified[ICD10: N39.0] Diagnosis: Gastro-esophageal reflux disease without esophagitis[ICD10: K21.9] Diagnosis: Generalized anxiety disorder[ICD10: F41.1] Josiane Amador MD, [facility] CPT-4: 92402 07/21/2016 ([id number]) 23654 EST. PATIENT, LEVEL III Diagnosis: Generalized anxiety disorder[ICD10: F41.1] Diagnosis: Essential (primary) hypertension[ICD10: I10] Diagnosis: Vitamin B12 deficiency anemia, unspecified[ICD10: D51.9] Josiane Amador MD , [facility] CPT-4: 56935 07/14/2016 ([id number]) 15393 EST. 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 PATIENT, LEVEL III Diagnosis: Urinary tract infection, site not specified[ICD10: N39.0] Diagnosis: Hypo-osmolality and hyponatremia[ICD10: E87.1] Josiane Amador MD, [facility] CPT-4: 60120 07/03/2016 03479 EST. PATIENT, LEVEL IV Diagnosis: Generalized anxiety disorder[ICD10: F41.1] Diagnosis: Major depressive disorder, recurrent, mild[ICD10: F33.0] Diagnosis: Hypo-osmolality and hyponatremia[ICD10: E87.1] Meli Amador MD, [facility] CPT-4: 48373 06/30/2016 ([id number]) 64621 EST. PATIENT, LEVEL III Diagnosis: Hypo-osmolality and hyponatremia[ICD10: E87.1] Diagnosis: Dysuria[ICD10: R30.0] Diagnosis: Essential (primary) hypertension[ICD10: I10] Mera Amador MD, [facility] CPT-4: 96718 06/23/2016 93528 EST. PATIENT, LEVEL III Diagnosis: Candidal stomatitis[ICD10: B37.0] Diagnosis: Gastro-esophageal reflux disease without esophagitis[ICD10: K21.9] Diagnosis: Hypo-osmolality and hyponatremia[ICD10: E87.1] Meli Amador MD, [facility] CPT-4: 08356 06/15/2016 ([id number]) 66668 EST. PATIENT, LEVEL III Diagnosis: Essential (primary) hypertension[ICD10: I10] Diagnosis: Hypo-osmolality and hyponatremia[ICD10: E87.1] Diagnosis: Urinary tract infection, site not specified[ICD10: N39.0] Josiane Amador MD , [facility] CPT-4: 53066 06/05/2016 ([id number]) 25777 EST. PATIENT, LEVEL III Diagnosis: Urinary tract infection, site not specified[ICD10: N39.0] Josiane Amador MD , [facility] CPT-4: 09347 06/01/2016 ([id number]) 61344 EST. 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 PATIENT, LEVEL III Diagnosis: Pain in left toe(s)[ICD10: M79.675] Diagnosis: Tinea unguium[ICD10: B35.1] [facility] CPT-4: 75274 05/11/2016 ([id number]) OFFICE VISIT, NEW - LEVEL 4 Diagnosis: Essential (primary) hypertension[ICD10: I10] Diagnosis: Hypo-osmolality and hyponatremia[ICD10: E87.1] Mera Amador MD, [facility] CPT-4: 34432 04/30/2016 Plan of Care Planned Activity Notes Codes Status Date Appointment: Lab Draw 05/11/2017 Patient Education: Patient Medication Summary Completed 05/11/2017 Appointment[facility] ([facility] 05/10/2017 Appointment: Meli Malone WPtel: [address] [place], [place] [address] (30 min) Complex 04/30/2017 Appointment: Lab Draw 04/29/2017 Appointment: Meli Malone WPtel: [address] [place] [address] (30 min) Complex 04/29/2017 Visit Plan: URI [...] this regimen. 04/23/2017 Appointment: Meli Malone WPtel: [facility] (30 min) Complex 04/23/2017 Patient Education: Patient [...] current medications. 03/19/2017 Appointment: Meli Malone WPtel: [facility] (30 min) Complex 03/19/2017 Patient Education: Patient [...] concerns. 03/08/2017 Appointment: [phone] ([facility] min) Complex 03/08/2017 Patient Education: [...] medications. 02/02/2017 Appointment[phone] ([facility] min) Complex 02/02/2017 Patient Education: [...] discharge. 12/30/2016 Appointment: [phone] (30 min) Complex 12/30/2016 Patient Education: [...] repeat UA today, infectious disease clinic in [place] is reviewing her case to make her an appointment, no other changes at this time. 12/22/2016 Appointment: [phone] (15 min) Moderate 12/22/2016 Patient Education: Patient Medication Summary Completed 12/22/2016 Care Plan: VASCULAR STUDY Pending 12/22/2016 Care Plan: Referral Order SNOMED-CT : [id number] Pending 12/20/2016 Visit Plan: Varicose veins - [...] like to be referred to someone in [place] instead of at - will look into referral to specialist in [place]. 12/18/2016 Appointment: eMli Malone WPtel: [facility] [place] (15 min) Moderate 12/18/2016 Patient Education: Patient Medication Summary Completed 12/18/2016 Appointment: Lab Draw 12/04/2016 Appointment: Meli Malone WPtel: [facility] [place] (30 min) Complex 11/27/2016 Visit [...] UTI-culture urine 11/20/2016 Appointment: Josiane Berry WPtel[phone] [place] (30 min) Complex 11/20/2016 Patient [...] concerns. 11/16/2016 Appointment: Meli Malone WPtel: [phone] [facility] (15 min) Moderate 11/16/2016 Patient Education: Patient [...] not improved. 10/28/2016 App[facility]ment: [facility] (15 min) Moderate 10/28/2016 Patient Education: Patient Medication Summary Completed 10/28/2016 Appointment: Lab Draw 10/16/2016 Patient Education: Patient Medication Summary Completed 10/16/2016 Visit Plan: Allergies-continue claritin-add flonase as directed UTI-UA negative-symptoms resolved Uestz-srhvpwrn-gczwxzi with upset stomach and feels more anxious/jittery-likely due to prednisone-stay off prednisone and call if symptoms do not resolve. Patient and caregiver verbalized understanding of plan. 10/13/2016 Visit Plan: Allergies-continue claritin-add flonase as directed UTI-UA negative-symptoms resolved Nffsv-xorzvdoz-nnktmwa with upset stomach and feels more anxious/jittery-likely due to prednisone-stay off prednisone and call if symptoms do not resolve. Patient and caregiver verbalized understanding of plan. 10/13/2016 Appointment: Josiane Berry WPtel: [address] [place], [place] [phone] (15 min) Moderate 10/13/2016 Patient Education: Patient Medication Summary Completed 10/13/2016 Visit Plan: Allergic reaction-suspect due to cefdinir- kenalog injection today in the office-start prednisone tomorrow-start oral anti histamine such as claritin or zyrtec as directed-call if symptoms do not resolve , ER if any worse. Patient and friend verbalized understanding of plan. 10/08/2016 Appointment: Josiane Berry WPtel: [address] [place], [place] [phone] (30 min) Complex 10/08/2016 Patient Education: Patient [...] in November. 09/29/2016 Appointment: Mera Amador WPtel: [address] [place], [place] [phone] (15 min) Moderate 09/29/2016 Patient Education: Patient Medication Summary Completed 09/29/2016 Appointment: Mera Amador WPtel: [address] [place], [place] [phone] (15 min) Moderate 09/23/2016 Appointment: Lab Draw 09/09/2016 Visit Plan: Anxiety - uncontrolled - restart the LEXAPRO 5mg at bedtime. Recurrent urinary tract infection - start on the PREVENTATIVE antibiotic trimethoprim 100mg daily. 09/03/2016 Appointment: Mera Amador WPtel: [address] [place], [place] [phone] (15 min) Moderate 09/03/2016 Patient Education: Patient [...] medications. 08/24/2016 Appointment: Mera Amador WPtel: [phone] [facility] (15 min) Moderate 08/24/2016 Patient Education: Patient [...] or concerns. 08/11/2016 Appointment: Meli Malone WPtel: [phone] [facility] (30 min) Complex 08/11/2016 Patient Education: Patient Medication Summary Completed 08/11/2016 Appointment: Lab Draw 08/06/2016 Patient Education: Patient Medication Summary Completed 08/06/2016 Appointment: Josiane Berry WPtel: [phone] [place] (15 min) Moderate 08/04/2016 Visit Plan: Anxiety-continue lexapro-xanax prn-no changes in medications today Pelvic pain-UA negative-patient to see Dr Abraham for [employer] evaluation 08/03/2016 Appointment: Josiane Berry WPtel: [phone] [phone] [place] (10 min) Simple 08/03/2016 Patient Education: [...] above medications. 07/27/2016 Appointment: Meli Malone WPtel: [facility] [address] (15 min) Moderate 07/27/2016 Patient Education: [...] Dr Hughes 07/21/2016 Appointment: Josiane Berry WPtel: [facility] [place] [phone] (15 min) Moderate 07/21/2016 Patient Education: Patient [...] in medications 07/14/2016 Appointment: Josiane Berry WPtel: [facility] [place] [phone] (30 min) Complex 07/14/2016 Patient Education: Patient [...] sodium-check labs 07/10/2016 Appointment: Josiane Berry WPtel: [phone] (15 min) Moderate 07/10/2016 Patient Education: Patient Medication Summary Completed 07/10/2016 Visit Plan: UTI-finish cefuroxime-then start preventative abx-recheck UA in 1 week Low sodium-check labs today Depression-start the lexapro as directed 07/03/2016 Appointment: Josiane Berry WPtel: [phone] (15 min) Moderate 07/03/2016 Patient Education: Patient [...] this patient. 06/30/2016 Appointment: [facility]el: [phone] (30 min) Complex 06/30/2016 Patient Education: [...] serially 06/23/2016 Appointment: Mera Amador WPtel: [phone] [facility] (15 min) Moderate 06/23/2016 Patient Education: [...] monitor labs. 06/15/2016 Appointment: Meli Malone WPtel: [facility] [place] (10 min) Simple 06/15/2016 Patient Education: [...] short time 06/05/2016 Appointment: Josiane Berry WPtel: [phone] [place] (15 min) Moderate 06/05/2016 Patient Education: Patient Medication Summary Completed 06/05/2016 Visit Plan: UTI-persistent symptoms-stop cefdinir start cipro as directed-repeat UA upon completion of abx-continue estrace cream as directed-keep appt with Dr Hughes 06/01/2016 Appointment: Josiane Berry WPtel: [phone] [phone] [place] (15 min) Moderate 06/01/2016 Patient Education: [...] times daily. 05/28/2016 Appointment: Mera Amador [facility]Ptel[facility] (15 min) Moderate 05/28/2016 Patient Education: Patient Medication Summary Completed 05/28/2016 Visit Plan: Left great toe pain-with fungal infection of nail-- large nail nippers and dremmel used to trim dystrophic, thickened, elongated toenail left great toe-patient verbalized relief from pain. Instructed patient to call if symptoms return or other concerns. 05/11/2016 Appointment: Josiane Berry WPtel: [phone] (15 min) Moderate 05/11/2016 Patient Education: [...] monitor symptoms. 04/30/2016 Appointment: Mera Amador WPtel: [address] [place] [phone] New Patient 04/30/2016 Patient Education: Patient Medication [...] acting anxiety medication Follow up with Dr. uHghes, and let us know what he says. [...] claritin-add flonase as directed UTI-UA negative-symptoms resolved Rigkh-grihgzah-otcafza with upset stomach and feels more anxious/jittery-likely due to prednisone-stay off prednisone and call if symptoms do not resolve. Patient and caregiver verbalized understanding of plan. . Allergies-continue claritin-add flonase as directed UTI-UA negative-symptoms resolved Tgued-ounwwuwo-oaktcpo with upset stomach and feels more anxious/jittery-likely [...] pain-UA negative-patient to see Dr Abraham for [employer] evaluation FINISH ANTIBIOTIC-START PREVENTATIVE ANTIBIOTIC AFTER YOU [...] like to be referred to someone in [place] instead of at - will look into referral to specialist in [place]. STOP THE CEFDINIR AND FLUCONAZOLE START CLARITIN [...] repeat UA today, infectious disease clinic in [place] is reviewing her case to make her [...]
--- OUTSIDE RECORDS SUMMARY | 2017-07-04 04:32 | XMS REPORT | CCD ---
Author Author Mera Amador Organization Mera Amador MD, [facility] Address [address] [place] [address] Phone Care Team Providers Care Play Reader Name Role Phone PP Unavailable CCM Unavailable Summary Purpose Interface Exchange Insurance Providers Payer name Policy type / Coverage type Covered green party ID Effective Begin Date Effective End Date WPS Medicare Part B Medicare Part B [id number] Unknown Unknown AARP Medicare Part B [id number] Unknown Unknown Family History Family History data not found Social History Social History Element Codes Description Effective Dates Marital status Unknown 04/30/[address]: 310249313 Never smoker 04/30/[address]: 748793622 Never drinks alcohol 04/30/2016 Allergies, Adverse Reactions, Alerts Substance Reaction Codes Entered Date Inactivated Date Status cephalexin rash RxNorm: 2231 10/28/2016 No Inactive Date Active ultram pruritis RxNorm: 84879 08/24/2016 No Inactive Date Active Past Medical [...] 06/15/2016 Unknown Pelvic and perineal pain ICD-9: [id number] ICD-10: R10.2 Active 08/03/2016 Unknown Vitamin B12 [...] 06/15/2016 Active Pelvic and perineal pain ICD-9: [id number] ICD-10: R10.2 08/03/2016 Active Vitamin B12 deficiency [...] Fill Instructions Cipro 500 mg tablet RxNorm: 197485 1 Tablet(s) PO BID 201705/27/2017 Active Augmentin 500 mg-125 mg tablet RxNorm: 468909 1 Tablet(s) PO TID 05/11/2017 05/17/2017 Inactive Xanax 0.25 mg tablet RxNorm: 604616 1/2-1 Tablet(s) PO TID as needed 05/07/2017 07/05/2017 Active omeprazole 40 mg capsule,delayed release RxNorm: 180266 TAKE ONE CAPSULE BY MOUTH ONCE DAILY 05/06/2017 No Stop Date Active prednisone 10 mg tablet RxNorm: 285182 Tablet(s) PO UD 2017 No Stop Date Active 20,20,10,10 Tessalon Perles 100 mg capsule RxNorm: 957878 1-2 Capsule(s) PO TID as needed cough 04/23/2017 No Stop Date Active prednisone 10 mg tablet RxNorm: 898587 Tablet(s) PO 04/23/2017 No Stop Date Active 6, 5,4,3,2,1 doxycycline hyclate 100 mg capsule RxNorm: 1215143 1 Capsule(s) PO BID 04/23/2017 05/02/2017 Inactive Kenalog 40 mg/mL suspension for injection RxNorm: 2660238 1 Milliliter(s) Inj 04/23/2017 04/23/2017 Inactive Cipro 500 mg tablet RxNorm: 516511 1 Tablet(s) PO BID 201704/16/2017 Inactive Cipro 500 mg tablet RxNorm: 195620 1 Tablet(s) PO BID 201603/25/2017 Inactive hydrocodone 5 mg-acetaminophen 325 mg tablet RxNorm: 617411 1 Tablet(s) PO Q6 as needed 03/05/2017 03/19/2017 Inactive Diflucan 150 mg tablet RxNorm: 637891 1 Tablet(s) PO daily 03/05/2017 Inactive Diflucan 150 mg tablet RxNorm: 287642 1 Tablet(s) PO daily 02/28/2017 Inactive Seasonique 0.15 mg-30 mcg (84)/10 mcg(7) tablets,3 month dose pack RxNorm: 783488 1 Tablet(s) PO UD 02/24/2017 02/24/2017 Inactive losartan 50 mg tablet RxNorm: 257194 TAKE ONE TABLET BY MOUTH ONCE DAILY IN THE MORNING 02/23/2017 No Stop Date Active Diflucan 150 mg tablet RxNorm: 806993 1 Tablet(s) PO daily 09/201602/14/2017 Inactive Cipro 500 mg tablet RxNorm: 774430 1 Tablet(s) PO BID 201601/21/2017 Inactive Augmentin 500 mg-125 mg tablet RxNorm: 271555 1 Tablet(s) PO TID 12/30/2016 12/29/2016 Inactive Augmentin 500 mg-125 mg tablet RxNorm: 452612 1 Tablet(s) PO TID 12/30/2016 01/05/2017 Inactive hydrocodone 5 mg-acetaminophen 325 mg tablet RxNorm: 097781 1 Tablet(s) PO Q6 as needed 12/24/2016 01/07/2017 Inactive omeprazole 40 mg capsule,delayed release RxNorm: 527213 TAKE ONE CAPSULE BY MOUTH ONCE DAILY 12/08/2016 04/06/2017 Inactive Diflucan 150 mg tablet RxNorm: 335714 1 Tablet(s) PO daily 12/02/2016 Inactive Xanax 0.25 mg tablet RxNorm: 998371 1/2-1 Tablet(s) PO TID as needed 11/24/2016 01/20/2017 Inactive Xanax 0.25 mg tablet RxNorm: 483303 1/2-1 Tablet(s) PO TID as needed 11/24/2016 01/22/2017 Inactive sucralfate 1 gram tablet RxNorm: 700023 TAKE ONE TABLET BY MOUTH BEFORE MEALS AND AT BEDTIME 11/20/2016 12/19/2016 Inactive Diflucan 150 mg tablet RxNorm: 485770 1 Tablet(s) PO daily 11/22/2016 Inactive Levaquin 500 mg tablet RxNorm: 043424 1 Tablet(s) PO daily 10/201611/08/2016 Inactive Levaquin 500 mg tablet RxNorm: 871410 1 Tablet(s) PO daily 10/201611/15/2016 Inactive losartan 50 mg tablet RxNorm: 695353 1 Tablet(s) PO QAM 201602/22/2017 Inactive hydrocodone 5 mg-acetaminophen 325 mg tablet RxNorm: 369035 1 Tablet(s) PO Q6 as needed 10/26/2016 11/09/2016 Inactive Kenalog 40 mg/mL suspension for injection RxNorm: 6977657 1 Milliliter(s) Inj 10/08/2016 10/08/2016 Inactive prednisone 5 mg tablets in a dose pack RxNorm: 098723 1 Tablet(s) PO UD 10/08/2016 10/12/2016 Inactive 6-5-4-3-2-1 Diflucan 150 mg tablet RxNorm: 616350 1 Tablet(s) PO daily 06/201610/04/2016 Inactive Diflucan 150 mg tablet RxNorm: 525285 1 Tablet(s) PO daily 06/201610/09/2016 Inactive Lexapro 10 mg tablet RxNorm: 511664 1 Tablet(s) PO QHS 201601/26/2017 Inactive cefdinir 300 mg capsule RxNorm: 910006 1 Capsule(s) PO BID 10/07/2016 Inactive Lexapro 5 mg tablet RxNorm: 417103 1 Tablet(s) PO QHS 201609/28/2016 Inactive trimethoprim 100 mg tablet RxNorm: 544703 1 Tablet(s) PO daily 09/03/2016 03/01/2017 Inactive hydrocodone 5 mg-acetaminophen 325 mg tablet RxNorm: 283134 1 Tablet(s) PO Q6 as needed 08/28/2016 09/11/2016 Inactive Diflucan 150 mg tablet RxNorm: 149919 1 Tablet(s) PO QW as needed symptoms of thrush 08/26/2016 09/28/2016 Inactive Xanax 0.25 mg tablet RxNorm: 277073 1/2-1 Tablet(s) PO TID as needed 08/24/2016 10/20/2016 Inactive tramadol 50 mg tablet RxNorm: 367379 1-2 Tablet(s) PO Q6 as needed for pain 08/14/2016 09/28/2016 Inactive amoxicillin 500 mg capsule RxNorm: 012315 1 Capsule(s) PO TID 08/11/2016 08/20/2016 Inactive nystatin 100,000 unit/mL oral suspension RxNorm: 483873 5 Milliliter(s) PO QID 08/11/2016 08/17/2016 Inactive cefdinir 300 mg capsule RxNorm: 813114 1 Capsule(s) PO BID 12/201608/20/2016 Inactive losartan 50 mg tablet RxNorm: 026324 1 Tablet(s) PO QAM 201610/24/2016 Inactive fluconazole 200 mg tablet RxNorm: 456344 1 Tablet(s) PO daily 07/19/2016 07/28/2016 Inactive cefuroxime axetil 500 mg tablet RxNorm: 986039 1 Tablet(s) PO BID 07/19/2016 08/02/2016 Inactive Xanax 0.25 mg tablet RxNorm: 047067 1/2-1 Tablet(s) PO QDAY PRN 07/14/2016 08/23/2016 Inactive cyanocobalamin (vit B-12) 1,000 mcg/mL injection solution RxNorm: 948440 1 Milliliter(s) Inj 07/14/2016 07/14/2016 Inactive Diflucan 150 mg tablet RxNorm: 047660 1 Tablet(s) PO daily 10/201607/17/2016 Inactive Keflex 250 mg capsule RxNorm: 217587 1 Capsule(s) PO QHS 201607/13/2016 Inactive Lexapro 5 mg tablet RxNorm: 651160 1 Tablet(s) PO QHS TO START AFTER YOU ARE FINISHED WITH THE DIFLUCAN!! 06/30/2016 Inactive cefuroxime axetil 250 mg tablet RxNorm: 596104 1 Tablet(s) PO BID 06/26/2016 06/25/2016 Inactive ceftriaxone 500 mg solution for injection RxNorm: 4562266 1 Milliliter(s) Inj 06/26/2016 06/26/2016 Inactive cefuroxime axetil 250 mg tablet RxNorm: 580657 1 Tablet(s) PO BID 06/26/2016 07/05/2016 Inactive Diflucan 150 mg tablet RxNorm: 800041 1 Tablet(s) PO QW as needed symptoms of thrush 06/23/2016 08/02/2016 Inactive Zantac 150 mg tablet RxNorm: 619926 1 Tablet(s) PO daily 201607/14/2016 Inactive Xanax 0.25 mg tablet RxNorm: 733585 1/2-1 Tablet(s) PO HS PRN 06/05/2016 07/13/2016 Inactive Keflex 250 mg capsule RxNorm: 849525 1 Capsule(s) PO QHS as needed 06/05/2016 07/04/2016 Inactive Cipro 500 mg tablet RxNorm: 655260 1 Tablet(s) PO BID 201606/07/2016 Inactive ceftriaxone 500 mg solution for injection RxNorm: 1044708 1 Milliliter(s) Inj 05/28/2016 05/28/2016 Inactive cefdinir 300 mg capsule RxNorm: 726872 1 Capsule(s) PO BID 05/31/2016 Inactive metronidazole 500 mg tablet RxNorm: 769755 1 Tablet(s) PO BID 05/28/2016 06/03/2016 Inactive sucralfate 1 gram tablet RxNorm: 720435 1 Tablet(s) PO AC & HS 05/21/2016 07/20/2016 Inactive sucralfate 1 gram tablet RxNorm: 875146 1 Tablet(s) PO AC & HS 05/21/2016 05/20/2016 Inactive omeprazole 40 mg capsule,delayed release RxNorm: 212451 1 Capsule(s) PO daily 05/21/2016 08/18/2016 Inactive omeprazole 40 mg capsule,delayed release RxNorm: 077638 1 Capsule(s) PO daily 05/21/2016 05/20/2016 Inactive losartan 50 mg tablet RxNorm: 097691 1 Tablet(s) PO QAM 201607/26/2016 Inactive latanoprost 0.005 % eye drops RxNorm: 788739 1 Drop(s) OPH daily No Start Date Active Culturelle 15 billion cell sprinkle capsule RxNorm: 4941257 1 Capsule(s) PO TID No Start Date Active Calcium 500 + D (D3) oral RxNorm: 886397 oral No Start Date Active cranberry 500 mg capsule RxNorm: 184559 1 Capsule(s) PO daily No Start Date Active Ocuvite Lutein and Zeaxanthin 60 mg-30 unit-15 mg-2 mg-6 mg capsule RxNorm: 018231 1 Capsule(s) PO daily No Start Date Active Pyridium 200 mg tablet RxNorm: 6224291 1 Tablet(s) PO TID as needed No Start Date Active Toviaz 4 mg tablet,extended release RxNorm: 267465 1 Tablet(s) PO daily No Start Date Active Klor-Con 10 mEq tablet,extended release RxNorm: 237718 1 Tablet(s) PO BID No Start Date Active Estrace 0.01% (0.1 mg/gram) vaginal cream RxNorm: 017500 1 Application VAG TIW No Start Date 07/13/2016 Inactive allopurinol 300 mg tablet RxNorm: 466110 1 Tablet(s) PO daily No Start Date 06/22/2016 Inactive triamterene 37.5 mg-hydrochlorothiazide 25 mg tablet RxNorm: 841730 1 Tablet(s) PO daily No Start Date 10/07/2016 Inactive Seasonique 0.15 mg-30 mcg (84)/10 mcg(7) tablets,3 month dose pack RxNorm: 983668 1 Tablet(s) PO UD No Start Date 2016 Inactive hydrocodone 5 mg-acetaminophen 325 mg tablet RxNorm: 470381 1 Tablet(s) PO as needed No Start Date 08/27/2016 Inactive meloxicam 7.5 mg tablet RxNorm: 495040 1 Tablet(s) PO daily as needed No Start Date 10/07/2016 Inactive Multivitamins FC tablet RxNorm: 1 Tablet(s) PO daily No Start Date 10/07/2016 Inactive Fish Oil 1,000 mg capsule RxNorm: 1 Capsule(s) PO BID No Start Date 05/27/2016 Inactive tramadol 50 mg tablet RxNorm: 371426 1-2 Tablet(s) PO Q6 as needed for pain No Start Date 08/13/2016 Inactive Medication Administered Medication Codes Instructions Start Date Status Kenalog 40 mg/mL suspension for injection RxNorm: 4089370 1Milliliter 04/23/2017 No longer Active Kenalog 40 mg/mL suspension for injection RxNorm: 4122113 1Milliliter 10/08/2016 No longer Active cyanocobalamin (vit B-12) 1,000 mcg/mL injection solution RxNorm: 776428 1Milliliter 07/14/2016 No longer Active ceftriaxone 500 mg solution for injection RxNorm: 8751885 1Milliliter 06/26/2016 No longer Active ceftriaxone 500 mg solution for injection RxNorm: 0209512 1Milliliter 05/28/2016 No longer Active Immunizations Vaccine [...] Pelvic and perineal pain ICD-10: R10.2 ICD-9: [id number] 08/11/2016 Hypo-osmolality and hyponatremia ICD-10: E87.1 ICD-9: [...] sent to ref lab 05/13/2017 Culture Urine [id number] URINE CULTURE SEE NOTES 04/06/2017 Culture Urine [id number] Continued Results 04/06/2017 Urine Culture Ucult Complete >100,000 col/ml aerobic growth sent to ref lab 04/02/2017 Culture Urine [id number] URINE CULTURE SEE NOTES 03/22/2017 Culture Urine [id number] Continued Results 03/22/2017 Urine Culture Ucult Complete >100,000 col/ml aerobic growth sent to ref lab 03/20/2017 Comp Metabolic Bhm369 NA 131 mEq/L 03/19/2017 Comp Metabolic Auw461 K 4.0 mEq/L 03/19/2017 Comp Metabolic Cuo255 CL 93 mEq/L 03/19/2017 Comp Metabolic Kws981 CO2 28.0 mEq/L 03/19/2017 Comp Metabolic Tiz475 ANION GAP 14 03/19/2017 Comp Metabolic Qsk578 GLUCOSE 94 mg/dL 03/19/2017 Comp Metabolic Pzn604 Creat 0.8 mg/dL 03/19/2017 Comp Metabolic Vxf556 eGFR 69 ml/min/1.73m2 03/19/2017 Comp Metabolic Gtf266 BUN 16 mg/dL 03/19/2017 Comp Metabolic Kwy966 B/C Ratio 19.3 Ratio 03/19/2017 Comp Metabolic Pcd349 CALCIUM 9.5 mg/dL 03/19/2017 Comp Metabolic Xct229 ALK PHOS 54 U/L 03/19/2017 Comp Metabolic Pak167 AST(SGOT) 22 U/L 03/19/2017 Comp Metabolic Ldi367 ALT(SGPT) 18 U/L 03/19/2017 Comp Metabolic Xut287 BILI T 0.4 mg/dL 03/19/2017 Comp Metabolic Kvu168 ALBUMIN 4.2 g/dL 03/19/2017 Comp Metabolic Hyp138 TPRO 6.2 g/dL 03/19/2017 Comp Metabolic Eis316 GLOB 2.0 g/dL 03/19/2017 Comp Metabolic Xsk959 A/G Ratio 2.2 Ratio 03/19/2017 Comp Metabolic Acf177 Osmo 264 mOsmo 03/19/2017 Cbc With Differential Ord2 WBC 12.07 K/ul 03/19/2017 Cbc With Differential Ord2 RBC 3.94 M/ul 03/19/2017 Cbc With Differential Ord2 HGB 13.5 g/dl 03/19/2017 Cbc With Differential Ord2 Neut% 76.3 % 03/19/2017 Cbc With Differential Ord2 HCT 39.7 % 03/19/2017 Cbc With Differential Ord2 Lymph% 12.3 % 03/19/2017 Cbc With Differential Ord2 MCV 100.8 fl 03/19/2017 Cbc With Differential Ord2 Wise% 10.3 % 03/19/2017 Cbc With Differential Ord2 MCH 34.3 pg 03/19/2017 Cbc With Differential Ord2 MCHC 34.0 pg 03/19/2017 Cbc With Differential Ord2 Eos% 0.8 % 03/19/2017 Cbc With Differential Ord2 PLT 267 K/ul 03/19/2017 Cbc With Differential Ord2 Baso% 0.3 % 03/19/2017 Cbc With Differential Ord2 Neut ABS# 9.20 K/ul 03/19/2017 Cbc With Differential Ord2 RDW 12.7 % 03/19/2017 Cbc With Differential Ord2 Lymph ABS# 1.49 K/ul 03/19/2017 Cbc With Differential Ord2 Wise ABS# 1.2 K/ul 03/19/2017 Cbc With Differential Ord2 Eos ABS# 0.1 K/ul 03/19/2017 Cbc With Differential Ord2 Baso ABS# 0.0 K/ul 03/19/2017 Urine Culture Ucult Complete >100,000 col/ml aerobic growth sent to ref lab 01/01/2017 Urine Culture Ucult Preliminary NO Growth Day 1 11/23/2016 Urine Culture Ucult Complete NO Growth Day [...] Ord15 CALCIUM 9.3 mg/dL 08/11/2016 Culture Urine [id number] URINE CULTURE SEE NOTES 08/10/2016 Culture Urine [id number] Continued Results 08/10/2016 Urine Culture Ucult Complete >100,000 col/ml aerobic growth sent to ref lab 08/07/2016 Comp Metabolic Hpk562 NA 132 mEq/L 07/10/2016 Comp Metabolic Lpt299 K 3.9 mEq/L 07/10/2016 Comp Metabolic Kda442 CL 94 mEq/L 07/10/2016 Comp Metabolic Pqd215 CO2 28.0 mEq/L 07/10/2016 Comp Metabolic Fbw058 ANION GAP 14 07/10/2016 Comp Metabolic Jda697 GLUCOSE 96 mg/dL 07/10/2016 Comp Metabolic Xkw600 Creat 0.8 mg/dL 07/10/2016 Comp Metabolic Dvd408 eGFR 70 ml/min/1.73m2 07/10/2016 Comp Metabolic Mwn290 BUN 22 mg/dL 07/10/2016 Comp Metabolic Mzr456 B/C Ratio 26.8 Ratio 07/10/2016 Comp Metabolic Via416 CALCIUM 10.2 mg/dL 07/10/2016 Comp Metabolic Eel831 ALK PHOS 50 U/L 07/10/2016 Comp Metabolic Uxl944 AST(SGOT) 21 U/L 07/10/2016 Comp Metabolic Kcj111 ALT(SGPT) 19 U/L 07/10/2016 Comp Metabolic Cnl236 BILI T 0.5 mg/dL 07/10/2016 Comp Metabolic Uer343 ALBUMIN 4.2 g/dL 07/10/2016 Comp Metabolic Fhg451 TPRO 6.6 g/dL 07/10/2016 Comp Metabolic Few142 GLOB 2.4 g/dL 07/10/2016 Comp Metabolic Wph271 A/G Ratio 1.8 Ratio 07/10/2016 Comp Metabolic Klj329 Osmo 268 mOsmo 07/10/2016 Wet Prep [id number] Yeast Vaginal TNP:Duplicate Order 2016 Wet Prep [id number] Trichomonas TNP:Duplicate Order 07/10/2016 Cbc With Differential [...] 16.9 % 07/10/2016 Cbc With Differential Ord2 Wise% 10.7 % 07/10/2016 Cbc With Differential Ord2 MCH 34.6 pg 07/10/2016 Cbc With Differential Ord2 MCHC 34.6 pg 07/10/2016 Cbc With Differential Ord2 Eos% 0.6 % 07/10/2016 Cbc With Differential Ord2 Baso% 0.5 % 07/10/2016 Cbc With Differential Ord2 PLT 269 K/ul 07/10/2016 Cbc With Differential Ord2 RDW 13.0 % 07/10/2016 Cbc With Differential Ord2 Neut ABS# 5.69 K/ul 07/10/2016 Cbc With Differential Ord2 Lymph ABS# 1.35 K/ul 07/10/2016 Cbc With Differential Ord2 Wise ABS# 0.9 K/ul 07/10/2016 Cbc With Differential Ord2 Eos ABS# 0.1 K/ul 07/10/2016 Cbc With Differential Ord2 Baso ABS# 0.0 K/ul 07/10/2016 Wet Prep [id number] Yeast Vaginal None 07/10/2016 Wet Prep [id number] Trichomonas None 07/10/2016 Comp Metabolic Hjg069 NA 131 mEq/L 07/03/2016 Comp Metabolic Ngy801 K 4.4 mEq/L 07/03/2016 Comp Metabolic Gml938 CL 92 mEq/L 07/03/2016 Comp Metabolic Nns978 CO2 28.0 mEq/L 07/03/2016 Comp Metabolic Frg547 ANION GAP 15 07/03/2016 Comp Metabolic Tdf882 GLUCOSE 96 mg/dL 07/03/2016 Comp Metabolic Zaw186 Creat 0.8 mg/dL 07/03/2016 Comp Metabolic Axs996 eGFR 76 ml/min/1.73m2 07/03/2016 Comp Metabolic Gzj976 BUN 22 mg/dL 07/03/2016 Comp Metabolic Jhz552 B/C Ratio 28.9 Ratio 07/03/2016 Comp Metabolic Xse958 CALCIUM 10.3 mg/dL 07/03/2016 Comp Metabolic Wpb570 ALK PHOS 49 U/L 07/03/2016 Comp Metabolic Eig428 AST(SGOT) 21 U/L 07/03/2016 Comp Metabolic Pbs834 ALT(SGPT) 19 U/L 07/03/2016 Comp Metabolic Khc594 BILI T 0.5 mg/dL 07/03/2016 Comp Metabolic Mbf916 ALBUMIN 4.3 g/dL 07/03/2016 Comp Metabolic Fin382 TPRO 6.7 g/dL 07/03/2016 Comp Metabolic Cav362 GLOB 2.4 g/dL 07/03/2016 Comp Metabolic Zse849 A/G Ratio 1.8 Ratio 07/03/2016 Comp Metabolic Ipx362 Osmo 266 mOsmo 07/03/2016 Cbc With Differential [...] 33.9 pg 07/03/2016 Cbc With Differential Ord2 Wise% 10.3 % 07/03/2016 Cbc With Differential Ord2 Eos% 0.7 % 07/03/2016 Cbc With Differential Ord2 MCHC 34.2 pg 07/03/2016 Cbc With Differential Ord2 Baso% 0.8 % 07/03/2016 Cbc With Differential Ord2 PLT 291 K/ul 07/03/2016 Cbc With Differential Ord2 RDW 13.5 % 07/03/2016 Cbc With Differential Ord2 Neut ABS# 6.46 K/ul 07/03/2016 Cbc With Differential Ord2 Lymph ABS# 1.40 K/ul 07/03/2016 Cbc With Differential Ord2 Wise ABS# 0.9 K/ul 07/03/2016 Cbc With Differential [...] Ord62 ANION GAP 12 06/11/2016 Comp Metabolic Zka373 NA 127 mEq/L 06/05/2016 Comp Metabolic Dtz745 K 4.0 mEq/L 06/05/2016 Comp Metabolic Sls560 CL 94 mEq/L 06/05/2016 Comp Metabolic Eph831 CO2 26.0 mEq/L 06/05/2016 Comp Metabolic Ubg906 ANION GAP 11 06/05/2016 Comp Metabolic Cif060 GLUCOSE 101 mg/dL 06/05/2016 Comp Metabolic Fbu259 Creat 0.7 mg/dL 06/05/2016 Comp Metabolic Cib724 eGFR 80 ml/min/1.73m2 06/05/2016 Comp Metabolic Fzd587 BUN 15 mg/dL 06/05/2016 Comp Metabolic Env544 B/C Ratio 20.5 Ratio 06/05/2016 Comp Metabolic Uos824 CALCIUM 9.2 mg/dL 06/05/2016 Comp Metabolic Rxj293 ALK PHOS 43 U/L 06/05/2016 Comp Metabolic Row046 AST(SGOT) 32 U/L 06/05/2016 Comp Metabolic Ert082 ALT(SGPT) 43 U/L 06/05/2016 Comp Metabolic Umg038 BILI T 0.4 mg/dL 06/05/2016 Comp Metabolic Qbg797 ALBUMIN 4.3 g/dL 06/05/2016 Comp Metabolic Joq459 TPRO 6.2 g/dL 06/05/2016 Comp Metabolic Ylg891 GLOB 2.0 g/dL 06/05/2016 Comp Metabolic Hgh032 A/G Ratio 2.2 Ratio 06/05/2016 Comp Metabolic Msp993 Osmo 256 mOsmo 06/05/2016 Cbc With Differential Ord2 WBC 7.60 K/ul 06/05/2016 Cbc With Differential Ord2 RBC 3.79 M/ul 06/05/2016 Cbc With Differential Ord2 HGB 13.2 g/dl 06/05/2016 Cbc With Differential Ord2 HCT 36.7 % 06/05/2016 Cbc With Differential Ord2 Neut% 74.4 % 06/05/2016 Cbc With Differential Ord2 MCV 96.8 fl 06/05/2016 Cbc With Differential Ord2 Lymph% 13.6 % 06/05/2016 Cbc With Differential Ord2 MCH 34.8 pg 06/05/2016 Cbc With Differential Ord2 Wise% 11.1 % 06/05/2016 Cbc With Differential Ord2 [...] 1.03 K/ul 06/05/2016 Cbc With Differential Ord2 Wise ABS# 0.8 K/ul 06/05/2016 Cbc With Differential Ord2 Eos ABS# 0.0 K/ul 06/05/2016 Cbc With Differential Ord2 Baso ABS# 0.0 K/ul 06/05/2016 Culture Urine [id number] URINE CULTURE SEE NOTES 06/01/2016 Culture Urine [id number] Continued Results 06/01/2016 Urine Culture Ucult Complete [...] dentition 04/30/2016 None Full Exam - General 1995 Ears/Nose/Throat oral cavity/pharynx/larynx Overall: oral mucosa clear [...] Codes Date URINALYSIS NONAUTO W/O SCOPE CPT-4: 62921 05/11/2017 THER/PROPH/DIAG INJ SC/IM CPT-4: 76262 04/23/2017 TRIAMCINOLONE ACET INJ NOS CPT-4: J3301 04/23/2017 URINALYSIS NONAUTO W/O SCOPE CPT-4: 37053 04/01/2017 URINALYSIS NONAUTO W/O SCOPE CPT-4: 13480 03/05/2017 FLU VACC PRSV FREE INC ANTIG CPT-4: 93374 12/18/2016 ADMIN INFLUENZA VIRUS VAC CPT-4: G0008 12/18/2016 URINALYSIS NONAUTO W/O SCOPE CPT-4: 84771 11/26/2016 URINALYSIS NONAUTO W/O SCOPE CPT-4: 90217 11/06/2016 URINALYSIS NONAUTO W/O SCOPE CPT-4: 25492 10/16/2016 TRIAMCINOLONE ACET INJ NOS CPT-4: J3301 10/08/2016 URINALYSIS NONAUTO W/O SCOPE CPT-4: 46340 09/03/2016 URINALYSIS NONAUTO W/O SCOPE CPT-4: 61578 08/24/2016 URINALYSIS NONAUTO W/O SCOPE CPT-4: 21557 08/06/2016 THER/PROPH/DIAG INJ SC/IM CPT-4: 75339 07/14/2016 VITAMIN B12 INJECTION CPT-4: J3420 07/14/2016 URINALYSIS NONAUTO W/O SCOPE CPT-4: 51963 07/03/2016 THER/PROPH/DIAG INJ SC/IM CPT-4: 58711 06/26/2016 ROCEPHIN, PER 250 MG CPT-4: J0696 06/26/2016 URINALYSIS NONAUTO W/O SCOPE CPT-4: 06290 06/23/2016 URINALYSIS NONAUTO W/O SCOPE CPT-4: 61814 06/11/2016 URINALYSIS NONAUTO W/O SCOPE CPT-4: 80642 05/28/2016 THER/PROPH/DIAG INJ SC/IM CPT-4: 64874 05/28/2016 ROCEPHIN, PER 250 MG CPT-4: J0696 05/28/2016 REMOVAL OF IMPACTED WAX CPT-4: G0268 05/06/2016 Vital Signs Date Vital 04/23/2017 Blood Pressure 1: 132/78 Code : 8480-6 BMI: 27.8 Code : 69716-4 Heart Rate 1 : 76 bpm Height: 5'4" SpO2: 98% Temperature: 36.8 (C) / 98.2 (F) Weight: 162 lbs 03/19/2017 Blood Pressure 1: 144/76 Code : 8480-6 BMI: 26.3 Code : 11474-3 Heart Rate 1 : 102 bpm Height: 5'4" SpO2: 98% Temperature: 36.8 (C) / 98.3 (F) Weight: 153 lbs 03/08/2017 Blood Pressure 1: 136/80 Code : 8480-6 BMI: 26.9 Code : 12123-1 Heart Rate 1 : 76 bpm Height: 5'4" SpO2: 96% Weight: 157 lbs 02/02/2017 Blood Pressure 1: 148/68 Code : 8480-6 BMI: 26.9 Code : 56880-2 Heart Rate 1 : 76 bpm Height: 5'4" SpO2: 97% Weight: 157 lbs 01/15/2017 Blood Pressure 1: 142/76 Code : 8480-6 BMI: 26.9 Code : 82000-9 Heart Rate 1 : 86 bpm Height: 5'4" SpO2: 97% Weight: 157 lbs 12/30/2016 Blood Pressure 1: 140/76 Code : 8480-6 BMI: 26.9 Code : 64737-2 Heart Rate 1 : 84 bpm Height: 5'4" SpO2: 97% Weight: 157 lbs 12/22/2016 Blood Pressure 1: 130/78 Code : 8480-6 BMI: 26.9 Code : 67958-7 Heart Rate 1 : 80 bpm Height: 5'4" SpO2: 97% Weight: 157 lbs 12/18/2016 BMI: 26.9 Code: 60424-7 Height: 5'4" Weight: 157 lbs 11/20/2016 Blood Pressure 1: 134/60 Code : 8480-6 BMI: 25.9 Code : 46288-8 Heart Rate 1 : 80 bpm Height: 5'4" SpO2: 97% Weight: 151 lbs 11/16/2016 BMI: 25.6 Code: 21764-7 Heart Rate 1: 74 bpm Height: 5'4" SpO2: 97% Weight: 149 lbs 10/28/2016 Blood Pressure 1: 128/70 Code : 8480-6 BMI: 25.7 Code : 23042-8 Heart Rate 1 : 70 bpm Height: 5'4" SpO2: 96% Weight: 150 lbs 10/13/2016 Blood Pressure 1: 130/78 Code : 8480-6 Heart Rate 1: 69 bpm Height: 5'4" SpO2: 98% 10/08/2016 Blood Pressure 1: 122/70 Code : 8480-6 BMI: 25.6 Code : 47084-5 Heart Rate 1 : 79 bpm Height: 5'4" SpO2: 97% Temperature: 37.0 (C) / 98.6 (F) Weight: 149 lbs 09/29/2016 Blood Pressure 1: 124/70 Code : 8480-6 BMI: 25.4 Code : 07110-0 Heart Rate 1 : 74 bpm Height: 5'4" SpO2: 94% Weight: 148 lbs 09/03/2016 Blood Pressure 1: 120/68 Code : 8480-6 BMI: 24.7 Code : 07934-0 Heart Rate 1 : 59 bpm Height: 5'4" SpO2: 97% Weight: 144 lbs 08/24/2016 Blood Pressure 1: 128/74 Code : 8480-6 BMI: 24.7 Code : 61791-9 Heart Rate 1 : 75 bpm Height: 5'4" SpO2: 97% Weight: 144 lbs 08/11/2016 Blood Pressure 1: 142/76 Code : 8480-6 BMI: 24.9 Code : 25719-2 Heart Rate 1 : 77 bpm Height: 5'4" SpO2: 96% Weight: 145 lbs 08/03/2016 Blood Pressure 1: 142/78 Code : 8480-6 BMI: 25.1 Code : 93380-1 Heart Rate 1 : 75 bpm Height: 5'4" SpO2: 97% Temperature: 36.9 (C) / 98.5 (F) Weight: 146 lbs 07/27/2016 Blood Pressure 1: 158/80 Code : 8480-6 BMI: 25.1 Code : 34050-4 Heart Rate 1 : 72 bpm Height: 5'4" SpO2: 98% Weight: 146 lbs 07/21/2016 Blood Pressure 1: 144/76 Code : 8480-6 BMI: 25.1 Code : 21029-7 Heart Rate 1 : 80 bpm Height: 5'4" SpO2: 94% Temperature: 37.3 (C) / 99.2 (F) Weight: 146 lbs 07/14/2016 Blood Pressure 1: 128/74 Code : 8480-6 BMI: 25.1 Code : 21423-8 Heart Rate 1 : 79 bpm Height: 5'4" SpO2: 97% Temperature: 37.2 (C) / 98.9 (F) Weight: 146 lbs 8 oz 07/10/2016 Blood Pressure 1: 148/78 Code : 8480-6 BMI: 25.1 Code : 20466-8 Heart Rate 1 : 82 bpm Height: 5'4" SpO2: 96% Temperature: 37.2 (C) / 99.0 (F) Weight: 146 lbs 8 oz 07/03/2016 Blood Pressure 1: 134/76 Code : 8480-6 Heart Rate 1: 79 bpm Height: 5'4" SpO2: 98% Temperature: 36.9 (C) / 98.4 (F) 06/30/2016 Blood Pressure 1: 138/78 Code : 8480-6 BMI: 25.1 Code : 65730-9 Heart Rate 1 : 90 bpm Height: 5'4" SpO2: 97% Weight: 146 lbs 06/23/2016 Blood Pressure 1: 132/58 Code : 8480-6 BMI: 25.7 Code : 24678-9 Heart Rate 1 : 85 bpm Height: 5'4" SpO2: 97% Weight: 150 lbs 06/15/2016 Blood Pressure 1: 134/62 Code : 8480-6 BMI: 26.4 Code : 04665-3 Heart Rate 1 : 75 bpm Height: 5'4" SpO2: 95% Weight: 154 lbs 06/05/2016 Blood Pressure 1: 156/80 Code : 8480-6 BMI: 26.4 Code : 50502-6 Heart Rate 1 : 92 bpm Height: 5'4" SpO2: 98% Weight: 154 lbs 06/01/2016 Blood Pressure 1: 135/80 Code : 8480-6 Heart Rate 1: 95 bpm SpO2: 97% Temperature: 37.1 (C) / 98.8 (F) 05/28/2016 Blood Pressure 1: 140/80 Code : 8480-6 BMI: 26.1 Code : 34321-7 Heart Rate 1 : 89 bpm Height: 5'4" SpO2: 96% Weight: 152 lbs 05/11/2016 Blood Pressure 1: 154/86 Code : 8480-6 Heart Rate 1: 89 bpm Height: 5'4" SpO2: 95% Weight: 04/30/2016 Blood Pressure 1: 142/72 Code : 8480-6 BMI: 26.3 Code : 36675-7 Heart Rate 1 : 87 bpm Height: [...] data Encounters Encounter Performer Location Codes Date 32339 EST. PATIENT, LEVEL III Diagnosis: Acute laryngopharyngitis[ICD10: J06.0] Diagnosis: Other allergic rhinitis[ICD10: J30.89] Diagnosis: Slow transit constipation[ICD10: K59.01] Meli Amador MD, [facility] CPT-4: 65398 04/23/2017 24071 EST. PATIENT, LEVEL III Diagnosis: Dysuria[ICD10: R30.0] Diagnosis: Other malaise[ICD10: R53.81] Diagnosis: Other fatigue[ICD10: R53.83] Diagnosis: Generalized anxiety disorder[ICD10: F41.1] Meli Amador MD, [facility] CPT-4: 99180 03/19/2017 29765 EST. PATIENT, LEVEL III Diagnosis: Left lower quadrant pain[ICD10: R10.32] Meli Amador MD, [facility] CPT-4: 59889 03/08/2017 68015 EST. PATIENT, LEVEL III Diagnosis: Dysuria[ICD10: R30.0] Diagnosis: Generalized anxiety disorder[ICD10: F41.1] Meli Amador MD, [facility] CPT-4: 38160 02/02/2017 62996 EST. PATIENT, LEVEL III Diagnosis: Generalized anxiety disorder[ICD10: F41.1] Diagnosis: Urinary tract infection, site not specified[ICD10: N39.0] Meli Amador MD, [facility] CPT-4: 21814 01/15/2017 39671 EST. PATIENT, LEVEL IV Diagnosis: Dysuria[ICD10: R30.0] Diagnosis: Rash and other nonspecific skin eruption[ICD10: R21] Meli Amador MD, [facility] CPT-4: 68482 12/30/2016 30330 EST. PATIENT, LEVEL IV Diagnosis: Localized edema[ICD10: R60.0] Diagnosis: Pain in left lower leg[ICD10: M79.662] Diagnosis: Dysuria[ICD10: R30.0] Meli Amador MD, [facility] CPT-4: 99526 12/22/2016 24739 EST. PATIENT, LEVEL IV Diagnosis: 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[ICD10: I83.92] Diagnosis: Urinary tract infection, site not specified[ICD10: N39.0] Diagnosis: Encounter for immunization[ICD10: Z23] Meli Amador MD, [facility] CPT-4: 55125 12/18/2016 ([id number]) 90916 EST. PATIENT, LEVEL III Diagnosis: 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[ICD10: I83.92] Diagnosis: Urinary tract infection, site not specified[ICD10: N39.0] Josiane Amador MD , [facility] CPT-4: 65809 11/20/2016 40034 EST. PATIENT, LEVEL III Diagnosis: Dysuria[ICD10: R30.0] Meli Amador MD, [facility] CPT-4: 33161 11/16/2016 ([id number]) 67490 EST. PATIENT, LEVEL III Diagnosis: Generalized anxiety disorder[ICD10: F41.1] Diagnosis: Urinary tract infection, site not specified[ICD10: N39.0] Mera Amador MD, [facility] CPT-4: 95619 10/28/2016 ([id number]) 83376 EST. PATIENT, LEVEL III Diagnosis: Allergic rhinitis due to pollen[ICD10: J30.1] Diagnosis: Urinary tract infection, site not specified[ICD10: N39.0] Diagnosis: Allergic urticaria[ICD10: L50.0] Josiane Amador MD, [facility] CPT-4: 14074 10/13/2016 ([id number]) 84384 EST. PATIENT, LEVEL III Diagnosis: Allergic urticaria[ICD10: L50.0] Josiane Amador MD, [facility] CPT-4: 84179 10/08/2016 ([id number]) 67479 EST. PATIENT, LEVEL III Diagnosis: Dysuria[ICD10: R30.0] Diagnosis: Essential (primary) hypertension[ICD10: I10] Mera Amador MD, [facility] CPT-4: 97295 09/29/2016 ([id number]) 09754 EST. PATIENT, LEVEL III Diagnosis: Generalized anxiety disorder[ICD10: F41.1] Diagnosis: Dysuria[ICD10: R30.0] Diagnosis: Personal history of urinary (tract) infections[ICD10: Z87.440] Mera Amador MD, [facility] CPT-4: 95235 09/03/2016 ([id number]) 69868 EST. PATIENT, LEVEL IV Diagnosis: Essential (primary) hypertension[ICD10: I10] Diagnosis: Generalized anxiety disorder[ICD10: F41.1] Diagnosis: Dysuria[ICD10: R30.0] Mera Amador MD, [facility] CPT-4: 44276 08/24/2016 73022 EST. PATIENT, LEVEL IV Diagnosis: Hypo-osmolality and hyponatremia[ICD10: E87.1] Diagnosis: Generalized anxiety disorder[ICD10: F41.1] Diagnosis: Pelvic and perineal pain[ICD10: R10.2] Diagnosis: Candidal stomatitis[ICD10: B37.0] Meli Amador MD, [facility] CPT -4: 57748 08/11/2016 ([id number]) 29927 EST. PATIENT, LEVEL III Diagnosis: Generalized anxiety disorder[ICD10: F41.1] Diagnosis: Pelvic and perineal pain[ICD10: R10.2] Josiane Amador MD, [facility] CPT-4: 10614 08/03/2016 94518 EST. PATIENT, LEVEL IV Diagnosis: Generalized anxiety disorder[ICD10: F41.1] Diagnosis: Pelvic and perineal pain[ICD10: R10.2] Diagnosis: Gastro-esophageal reflux disease without esophagitis[ICD10: K21.9] Meli Amador MD, [facility] CPT-4: 81450 07/27/2016 ([id number]) 54750 EST. PATIENT, LEVEL III Diagnosis: Urinary tract infection, site not specified[ICD10: N39.0] Diagnosis: Gastro-esophageal reflux disease without esophagitis[ICD10: K21.9] Diagnosis: Generalized anxiety disorder[ICD10: F41.1] Josiane Amador MD, [facility] CPT-4: 96815 07/21/2016 ([id number]) 27748 EST. PATIENT, LEVEL III Diagnosis: Generalized anxiety disorder[ICD10: F41.1] Diagnosis: Essential (primary) hypertension[ICD10: I10] Diagnosis: Vitamin B12 deficiency anemia, unspecified[ICD10: D51.9] Josiane Amador MD , [facility] CPT-4: 31744 07/14/2016 ([id number]) 14785 EST. PATIENT, LEVEL IV Diagnosis: Hypo-osmolality and hyponatremia[ICD10: E87.1] Diagnosis: Other specified noninflammatory disorders of vagina[ICD10: N89.8] Diagnosis: Essential (primary) hypertension[ICD10: I10] Diagnosis: Major depressive disorder, recurrent, mild[ICD10: F33.0] Josiane Amador MD , [facility] CPT-4: 27284 07/10/2016 ([id number]) 66106 EST. PATIENT, LEVEL III Diagnosis: Urinary tract infection, site not specified[ICD10: N39.0] Diagnosis: Hypo-osmolality and hyponatremia[ICD10: E87.1] Josiane Amador MD, [facility] CPT-4: 81998 07/03/2016 21561 EST. PATIENT, LEVEL IV Diagnosis: Generalized anxiety disorder[ICD10: F41.1] Diagnosis: Major depressive disorder, recurrent, mild[ICD10: F33.0] Diagnosis: Hypo-osmolality and hyponatremia[ICD10: E87.1] Meli Amador MD, [facility] CPT-4: 03712 06/30/2016 ([id number]) 31211 EST. PATIENT, LEVEL III Diagnosis: Hypo-osmolality and hyponatremia[ICD10: E87.1] Diagnosis: Dysuria[ICD10: R30.0] Diagnosis: Essential (primary) hypertension[ICD10: I10] Mera Amador MD, [facility] CPT-4: 97126 06/23/2016 44818 EST. PATIENT, LEVEL III Diagnosis: Candidal stomatitis[ICD10: B37.0] Diagnosis: Gastro-esophageal reflux disease without esophagitis[ICD10: K21.9] Diagnosis: Hypo-osmolality and hyponatremia[ICD10: E87.1] Meli Amador MD, [facility] CPT-4: 17509 06/15/2016 ([id number]) 68373 EST. PATIENT, LEVEL III Diagnosis: Essential (primary) hypertension[ICD10: I10] Diagnosis: Hypo-osmolality and hyponatremia[ICD10: E87.1] Diagnosis: Urinary tract infection, site not specified[ICD10: N39.0] Josiane Amador MD , [facility] CPT-4: 20178 06/05/2016 ([id number]) 61010 EST. PATIENT, LEVEL III Diagnosis: Urinary tract infection, site not specified[ICD10: N39.0] [facility] CPT-4: 31829 06/01/2016 ([id number]) 70209 EST. PATIENT, LEVEL IV Diagnosis: Hypo-osmolality and hyponatremia[ICD10: E87.1] Diagnosis: Essential (primary) hypertension[ICD10: I10] Diagnosis: Hyperuricemia without signs of inflammatory arthritis and tophaceous disease[ICD10: E79.0] Diagnosis: Urinary tract infection, site not specified[ICD10: N39.0] Mera Amador MD, [facility] CPT-4: 58311 05/28/2016 ([id number]) 39554 EST. PATIENT, LEVEL III Diagnosis: Pain in left toe(s)[ICD10: M79.675] Diagnosis: Tinea unguium[ICD10: B35.1] [facility] CPT-4: 36886 05/11/2016 ([id number]) OFFICE VISIT, NEW - LEVEL 4 Diagnosis: Essential (primary) hypertension[ICD10: I10] Diagnosis: Hypo-osmolality and hyponatremia[ICD10: E87.1] [facility] CPT-4: 11004 04/30/2016 Plan of Care Planned Activity Notes Codes Status Date Appointment: Lab Draw 05/11/2017 Patient Education: Patient Medication Summary Completed 05/11/2017 Appointment: Meli Malone WPtel: [address] [place] [address] (30 min) Complex 05/10/2017 Appointment: Meli Malone WPtel: [address] [place], [place] [phone] (30 min) Complex 04/30/2017 Appointment: Lab Draw 04/29/2017 Appointment: Meli Malone WPtel: [address] [place] [address] (30 min) Complex 04/29/2017 Visit Plan: URI [...] this regimen. 04/23/2017 Appointment: M[facility] Mal[facility]Ptel[facility] (30 min) Complex 04/23/2017 Patient Education: Patient [...] current medications. 03/19/2017 Appointment: Meli Malone WPtel: [facility] (30 min) Complex 03/19/2017 Patient Education: Patient [...] changes, questions, or concerns. 03/08/2017 Appointment: Meli Maolne WPtel: [facility] [place] (30 min) Complex 03/08/2017 Patient [...] current medications. 02/02/2017 Appointment: [facility] [phone] [facility] (30 min) Complex 02/02/2017 Patient Education: [...] pain, worsening redness, warmth, discharge. 12/30/2016 Appointment: Mlei Mal[facility]Ptel[facility] [phone] [facility] [place] (30 min) Complex 12/30/2016 Patient [...] repeat UA today, infectious disease clinic in [place] is reviewing her case to make her an appointment, no other changes at this time. 12/22/2016 Appointment: Meli Malone WPtel: [facility] [place] (15 min) Moderate 12/22/2016 Patient Education: Patient Medication Summary Completed 12/22/2016 Care Plan: VASCULAR STUDY Pending 12/22/2016 Care Plan: Referral Order SNOMED-CT : [id number] Pending 12/20/2016 Visit Plan: Varicose veins - [...] like to be referred to someone in [place] instead of at - will look into referral to specialist in [place]. 12/18/2016 Appointment: Meli Malone WPtel: [facility] [place] (15 min) Moderate 12/18/2016 Patient Education: Patient Medication Summary Completed 12/18/2016 Appointment: Lab Draw 12/04/2016 Appointment: Meli Malone WPtel: [facility] [place] (30 min) Complex 11/27/2016 Visit [...] UTI-culture urine 11/20/2016 Appointment: Jos[facility] Berry [facility]el[facility] [phone] [phone] (30 min) Complex 11/20/2016 Patient Education: Patient [...] concerns. 11/16/2016 Appointment: [facility] [phone] [facility] (15 min) Moderate 11/16/2016 Patient Education: Patient [...] improved. 10/28/2016 Appointment: [facility] [facility] [place] (15 min) Moderate 10/28/2016 Patient Education: Patient Medication Summary Completed 10/28/2016 Appointment: Lab Draw 10/16/2016 Patient Education: Patient Medication Summary Completed 10/16/2016 Visit Plan: Allergies-continue claritin-add flonase as directed UTI-UA negative-symptoms resolved Jjyxn-ktchnrkw-rdjrshf with upset stomach and feels more anxious/jittery-likely due to prednisone-stay off prednisone and call if symptoms do not resolve. Patient and caregiver verbalized understanding of plan. 10/13/2016 Visit Plan: Allergies-continue claritin-add flonase as directed UTI-UA negative-symptoms resolved Gpngx-onewpsog-vbfujki with upset stomach and feels more anxious/jittery-likely due to prednisone-stay off prednisone and call if symptoms do not resolve. Patient and caregiver verbalized understanding of plan. 10/13/2016 Appointment: Josiane Berry WPtel: [phone] [phone] (15 min) Moderate 10/13/2016 Patient Education: Patient Medication Summary Completed 10/13/2016 Visit Plan: Allergic reaction-suspect due to cefdinir- kenalog injection today in the office-start prednisone tomorrow-start oral anti histamine such as claritin or zyrtec as directed-call if symptoms do not resolve , ER if any worse. Patient and friend verbalized understanding of plan. 10/08/2016 Appointment: Josiane Berry WPtel: [phone] (30 min) Complex 10/08/2016 Patient Education: Patient [...] in November. 09/29/2016 Appointment: Mera Amador WPtel: [facility] (15 min) Moderate 09/29/2016 Patient Education: Patient Medication Summary Completed 09/29/2016 Appointment: Mera Amador WPtel: [facility] [place] (15 min) Moderate 09/23/2016 Appointment: Lab Draw 09/09/2016 Visit Plan: Anxiety - uncontrolled - restart the LEXAPRO 5mg at bedtime. Recurrent urinary tract infection - start on the PREVENTATIVE antibiotic trimethoprim 100mg daily. 09/03/2016 Appointment: Mera Amador WPtel: [facility] [place] (15 min) Moderate 09/03/2016 Patient [...] medications. 08/24/2016 Appointment: Mera Amador WPtel: [phone] [facility] (15 min) Moderate 08/24/2016 Patient [...] concerns. 08/11/2016 Appointment: Meli Malone WPtel: [phone] [facility] (30 min) Complex 08/11/2016 Patient Education: Patient Medication Summary Completed 08/11/2016 Appointment: Lab Draw 08/06/2016 Patient Education: Patient Medication Summary Completed 08/06/2016 Appointment: Josiane Berry WPtel: [phone] [phone] [place] (15 min) Moderate 08/04/2016 Visit Plan: Anxiety-continue lexapro-xanax prn-no changes in medications today Pelvic pain-UA negative-patient to see Dr Abraham for MANAGER PURCHASING evaluation 08/03/2016 Appointment: Josiane Berry WPtel: [phone] [phone] (10 min) Simple 08/03/2016 Patient Education: Patient [...] above medications. 07/27/2016 Appointment: Meli Malone WPtel: [address] [place] [address] (15 min) Moderate 07/27/2016 Patient Education: Patient [...] Dr Hughes 07/21/2016 Appointment: Josiane Berry WPtel: [address] [place], [place] [phone] (15 min) Moderate 07/21/2016 Patient Education: Patient [...] in medications 07/14/2016 Appointment: Josiane Berry WPtel: [phone] [phone] (30 min) Complex 07/14/2016 Patient Education: Patient [...] sodium-check labs 07/10/2016 Appointment: Josiane Berry WPtel: [phone] (15 min) Moderate 07/10/2016 Patient Education: Patient Medication Summary Completed 07/10/2016 Visit Plan: UTI-finish cefuroxime-then start preventative abx-recheck UA in 1 week Low sodium-check labs today Depression-start the lexapro as directed 07/03/2016 Appointment: Josiane Berry WPtel: [phone] (15 min) [...] this patient. 06/30/2016 Appointment: Meli Malone WPtel: [phone] [facility] (30 min) Complex 06/30/2016 Patient Education: Patient [...] labs serially 06/23/2016 Appointment: Mera Amador WPtel: [phone] [facility] (15 min) Moderate 06/23/2016 Patient Education: [...] monitor labs. 06/15/2016 Appointment: [facility]Ptel: [address] [facility] [place] (10 min) Simple 06/15/2016 Patient Education: [...] short time 06/05/2016 Appointment: Josiane Berry WPtel: [phone] [phone] [place] (15 min) Moderate 06/05/2016 Patient Education: Patient Medication Summary Completed 06/05/2016 Visit Plan: UTI-persistent symptoms-stop cefdinir start cipro as directed-repeat UA upon completion of abx-continue estrace cream as directed-keep appt with Dr Hughes 06/01/2016 Appointment: Josiane Berry [facility]Ptel: [phone] [phone] [place] (15 min) Moderate 06/01/2016 Patient Education: [...] daily. 05/28/2016 Appointment: [facility]era Amador [facility]: [address] [facility] [place] (15 min) Moderate 05/28/2016 Patient Education: Patient Medication Summary Completed 05/28/2016 Visit Plan: Left great toe pain-with fungal infection of nail-- large nail nippers and dremmel used to trim dystrophic, thickened, elongated toenail left great toe-patient verbalized relief from pain. Instructed patient to call if symptoms return or other concerns. 05/11/2016 Appointment: Josiane Berry [facility]Ptel: [phone] [phone] (15 min) Moderate 05/11/2016 Patient Education: [...] monitor symptoms. 04/30/2016 Appointment: Mera Amador [facility] [phone] [facility] New Patient 04/30/2016 Patient Education: Patient [...] claritin-add flonase as directed UTI-UA negative-symptoms resolved Aqwpf-uhgcnguu-fubzmxf with upset stomach and feels more anxious/jittery-likely due to prednisone-stay off prednisone and call if symptoms do not resolve. Patient and caregiver verbalized understanding of plan. . Allergies-continue claritin-add flonase as directed UTI-UA negative-symptoms resolved Lpusj-dwmwoexo-yelxtmd with upset stomach and feels more anxious/jittery-likely [...] pain-UA negative-patient to see Dr Abraham for MANAGER PURCHASING evaluation FINISH ANTIBIOTIC-START PREVENTATIVE ANTIBIOTIC AFTER YOU FINISH THE CEFUROXIME CALL WEDNESDAY WITH UPDATE . UTI-finish cefuroxime-then start preventative abx-recheck UA in 1 week Low sodium-check labs today Depression-start the lexapro as directed . UA negative - pt was feeling better on the diflucan - will refill RX x 1 - pt has an appointment with [facility] on 12/16. Thigh high compression stockings. [...] like to be referred to someone in [place] instead of at - will look into referral to specialist in [place]. STOP THE CEFDINIR AND FLUCONAZOLE START CLARITIN [...] repeat UA today, infectious disease clinic in [place] is reviewing her case to make her [...]
== END 2017-07-03 07:33 | disposition home or self-care (01) ==
LOC: EDUNIT# 05:03 → ER 05:06
DX: R30.0 Dysuria (principal); R11.0 Nausea; M79.1 Myalgia; F41.9 Anxiety disorder, unspecified; K21.9 Gastro-esophageal reflux disease without esophagitis; K59.09 Other constipation; I10 Essential (primary) hypertension; Z90.89 Acquired absence of other organs; Z96.22 Myringotomy tube(s) status; Z88.1 Allergy status to other antibiotic agents; Z88.2 Allergy status to sulfonamides; Z88.6 Allergy status to analgesic agent; Z88.8 Allergy status to other drugs, medicaments and biological substances
CPT/HCPCS: 36415; 80053; 81000; 82550; 83735; 84443; 85025; 85652; 86141; 87077; 87088; 87186; 96361; 96374

== ENCOUNTER → 2017-09-07 | Outpatient (CLI) | payer MEDICARE ==
[~2017-09-07] MED LIST changes: +ACHD5005 PO; +ACID1TAB5 PO; +AMOX-358 PO; +CALC-140 PO; +CALC600T12 PO; +CEPH-507 PO; +CITA10TA7 PO; +DOCU100C37 PO; +L.AC1CAP6 PO; +LACT1CAP87 PO; -LATA2.5D5 OP; +LATA2.5D5 OU; +LORA10CA PO; +LORA10TA7 PO; +LOSA25TA21 PO; +MELA1TAB8 PO; +MEMA10TA22 PO; +MEMA5TAB16 PO; +MIRT15TA6 PO; +NITR100C PO; +ONDA4TAB11 PO; +ONDA4TAB8 SL; +PHEN-639 PO; +POLY119P5 PO; +POLY17PO6 PO; +PRED5TAB PO; +PROP15DR OU; +SIME80TA16 PO; +TR1C15 TP
--- NOTE | 2017-09-07 13:16 | Diagnostic Imaging Report ---
EXAMINATION: Right hip at 1:12 p.m. INDICATION: Hip pain. AP and lateral views were obtained. There are no prior plain film examinations available for comparison. FINDINGS: There is no fracture, dislocation, or acute bony abnormality evident. 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 The soft tissues are unremarkable. IMPRESSION: 1. There is no evidence for an acute bony abnormality. 2. If clinical concern regarding an underlying abnormality persists and further imaging is desired, then MRI would be recommended. Dictated by: Dictated on workstation # [id number]
--- NOTE | 2017-09-07 13:18 | Diagnostic Imaging Report ---
EXAMINATION: Lumbar spine at 1:14 p.m. INDICATION: Low back pain. AP, lateral, and spot lateral views were obtained. The lateral view shows slight retrolisthesis of L4 with respect to L5 and narrowing of the disc space at this level. There is also sclerosis of the opposing endplates of L4 and L5. These findings are similar to the prior CT abdomen/pelvis exam of 04/16/2017. 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 There is also moderate narrowing of the disc space at L3-4. This finding is similar to the prior exam. The other intervertebral spaces are well maintained. There is no fracture or acute bony abnormality evident. There is no sign of a paraspinal mass. There is mild symmetrical sclerosis of the sacroiliac joints. IMPRESSION: 1. There is no evidence for an acute bony abnormality. 2. 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 3. If clinical concern regarding an underlying abnormality persists and further imaging is desired, then MRI would be recommended. Dictated by: Dictated on workstation # [id number]
== END ==
LOC: RAD 12:43
PROVIDERS: ATTEND Nurse Practitioner Family
DX: M47.816 Spondylosis without myelopathy or radiculopathy, lumbar region (principal)
CPT/HCPCS: 72100; 73502

== ENCOUNTER 2017-09-10 09:16 | Emergency (ER) | payer MEDICARE ==
[~2017-09-10] VITALS: Ht 160 cm; Wt 72.6 kg
[~2017-09-10 09:16] MED LIST changes: -ACHD5005 PO; -ACID1TAB5 PO; -AMOX-358 PO; -CALC-140 PO; -CALC600T12 PO; -DOCU100C37 PO; -L.AC1CAP6 PO; -LACT1CAP87 PO; -LORA10CA PO; -LORA10TA7 PO; -LOSA25TA21 PO; -MEMA10TA22 PO; -MIRT15TA6 PO; -NITR100C PO; -ONDA4TAB11 PO; -PHEN-639 PO; -POLY17PO6 PO; -PROP15DR OU; -SIME80TA16 PO; -TR1C15 TP
--- OUTSIDE RECORDS SUMMARY | 2017-09-10 09:20 | XMS REPORT | Clinical Summary ---
Author Author [facility] Organization [facility] Address Unknown Phone Unavailable Care Team Providers Care Logistics Supply Officer Name Role Phone No Pcp, Na PCP Unavailable Source Comments Some departments are not documenting in the electronic medical record. If you do not see the information that you expected, contact Release of Information in the Health Information Management department at [phone] for further assistance in locating additional records.[facility] Allergies Active Allergy Reactions Severity [...] 1946 SHINGLES VACCINE 1989 OSTEOPOROSIS SCREENING 1994 PNEUMONIA (PCV13/PPSV23) 1994 VACCINES (1 of 2 - PCV13) INFLUENZA VACCINE 01/03/2018 01/10/2004 Results Not on filefrom Last 3 Months
--- NOTE | 2017-09-10 09:55 | ED Abdominal Pain ---
General Chief Complaint: Abdominal/GI Problems Stated Complaint: CONSTIPATION Nursing Triage Note: C/O "female parts feel like they are going to fall out". States she was told that is a symptom of constipation. States that she had a large bm 2 days ago and a bm this am. No uti sx. Also c/o rt hip pain and makes her favor that leg so now the left leg is hurting. Has been seen for this issue and has pt ordered and has a MRI of lumbar spine ordered Sepsis Screen: No Definite Risk Source of Information: Patient Exam Limitations: No Limitations History of Present Illness Date Seen by Provider: Sep 10, 2017 Time Seen by Provider: 09:20 Initial Comments Here with report constipation. States that she feels like she is impacted. Also complains of bilateral legs hurting. Apparently his duty at work up from her doctor for what appears to be lumbar evaluation with MRI. She denies dysuria but states that she is urinating less. Did have large bowel movement 2 days ago and a small one this morning. She has been taking MiraLAX. Does have chronic right knee problems and has favored that leg and now her left leg is hurting. No fever or chills. No nausea or vomiting. Denies blood in her stool. Timing/Duration: 2-3 Days Severity/Quality: Moderate, Aching Location: Suprapubic Radiation: No Radiation Activities at Onset: None Modifying Factors: Improves With Defecating Associated Symptoms: No Back Pain, No Chest Pain, No Fever/Chills, No Nausea/ Vomiting, No Weakness Allergies and Home Medications Allergies Coded Allergies: Sulfa (Sulfonamide Antibiotics) (Verified Allergy, Mild, 09/10/17) cephalexin (Verified Allergy, Mild, HIVES, 07/03/17) ciprofloxacin (Unverified Allergy, Unknown, NAUSEA, 04/16/17) estradiol (Unverified Allergy, Unknown, 04/16/17) estrogens, conjugated (Unverified Allergy, Unknown, 04/16/17) tramadol (Verified Allergy, Unknown, 10/01/16) nitrofurantoin (Verified Adverse Reaction, Unknown, NAUSEA, 03/28/16) Home Medications Alprazolam 0.25 Mg Tablet, 0.25 MG PO HS, (Reported) Cephalexin 500 Mg Capsule, 500 MG PO QID Prescribed by: PADMAJA HARDY on 07/03/17 0715 Latanoprost 2.5 Ml Drops, 2.5 ML OP DAILY, (Reported) Losartan Potassium 50 Mg Tablet, 50 MG PO DAILY, (Reported) Melatonin 1 Mg Tablet, 1-2 MG PO HS PRN for INSOMNIA Prescribed by: PADMAJA HARDY on 07/03/1715 Meloxicam 7.5 Mg Tablet, 7.5 MG PO DAILY, (Reported) Omeprazole 40 Mg Capsule.dr, 40 MG PO DAILY, (Reported) Ondansetron 8 Mg Tab.rapdis, 8 MG PO 4 times a day Prescribed by: ALONZO SON on 06/13/17 1559 Ondansetron 4 Mg Tab.rapdis, 4 MG SL Q4H PRN for NAUSEA/VOMITING-1ST LINE Prescribed by: PADMAJA HARDY on 07/03/17714 Polyethylene Glycol 3350 119 Gm Powder, 17 GM PO BID PRN for CONSTIPATION-1ST LINE Prescribed by: PADMAJA HARDY on 07/03/17714 [Antivert] , 25 MG 3 times a day 4 times daily when necessary dizziness Prescribed by: ALONZO SON on 06/13/17 1641 Patient Home Medication List Home Medication List Reviewed: Yes Review of Systems Constitutional: see HPI; No chills, No fever EENTM: No Symptoms Reported Respiratory: No Symptoms Reported Cardiovascular: No Symptoms Reported Gastrointestinal: See HPI, Abdominal Pain, Constipated; Denies Diarrhea, Denies Vomiting Genitourinary: See HPI; Denies Burning Musculoskeletal: No back pain; joint pain, joint swelling (right knee), muscle pain (bilateral legs) Skin: no symptoms reported Psychiatric/Neurological: No Symptoms Reported All Other Systems Reviewed Negative Unless Noted: Yes Past Iqfroyp-Gdkzfj-Xpgnyu Hx Past Med/Social Hx: Reviewed Nursing Past Med/Soc Hx Patient Social History Alcohol Use: Denies Use Recreational Drug Use: No Smoking Status: Never a Smoker 2nd Hand Smoke Exposure: No Recent Foreign Travel: No Contact w/Someone Who Travel: No Recent Infectious Disease Expo: No Recent Hopitalizations: No Physical Abuse: No Sexual Abuse: No Mistreated: No Fear: No Immunizations Up To Date Tetanus Booster (TDap): Less than 5yrs Date of Pneumonia Vaccine: Jan 03, 2017 Date of Influenza Vaccine: Jan 03, 2017 Seasonal Allergies Seasonal Allergies: Yes Past Medical History Surgeries: Yes Adenoidectomy, Gallbladder, Tonsillectomy Respiratory: No Cardiac: Yes Hypertension Neurological: No Reproductive Disorders: No Sexually Transmitted Disease: No HIV/AIDS: No Genitourinary: Yes Bladder Infection, UTI-Chronic Gastrointestinal: Yes Gastroesophageal Reflux, Chronic Constipation Musculoskeletal: Yes (MILD) Arthritis Endocrine: No HEENT: No 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 Cancer: No Psychosocial: Yes Anxiety Nursing Suicide Risk Score: 0 Integumentary: Yes (SKIN TEARS FROM A DOG 06/20) Recent Skin Changes, Psoriasis Blood Disorders: No Adverse Reaction/Blood Tranf: No (N/A) Family Medical History No Pertinent Family Hx Physical Exam Vital Signs Vital Signs - First Documented 09/10/17 09:18 Temp 98.6 Pulse 81 Resp 14 B/P (MAP) 147/81 (103) Pulse Ox 98 Capillary Refill : Less Than 3 Seconds General Appearance: WD/WN, no apparent distress Neck: full range of motion, supple Respiratory: lungs clear, normal breath sounds Cardiovascular: regular rate, rhythm, no murmur Gastrointestinal: normal bowel sounds, non tender, soft, no organomegaly, no pulsatile mass Extremities: no pedal edema, pelvis stable, other (tender in the right knee with some swelling that is chronic.) Back: normal inspection, no CVA tenderness, no vertebral tenderness Neurologic/Psychiatric: alert, oriented x 3 Skin: normal color, warm/dry Progress/Results/Core Measures Results/Orders Lab Results Laboratory Tests Test 09/10/17 09:50 09/10/17 13:00 Range/Units White Blood Count 15.8 H 4.3-11.0 10^3/uL Red Blood Count 3.91 L 4.35-5.85 10^6/uL Hemoglobin 13.0 11.5-16.0 G/DL Hematocrit 37 35-52 % Mean Corpuscular Volume 94 80-99 FL Mean Corpuscular Hemoglobin 33 25-34 PG Mean Corpuscular Hemoglobin Concent 35 32-36 G/DL Red Cell Distribution Width 12.7 10.0-14.5 % Platelet Count 341 130-400 10^3/uL Mean Platelet Volume 8.9 7.4-10.4 FL Neutrophils (%) (Auto) 83 H 42-75 % Lymphocytes (%) (Auto) 8 L 12-44 % Monocytes (%) (Auto) 9 0-12 % Eosinophils (%) (Auto) 0 0-10 % Basophils (%) (Auto) 0 0-10 % Neutrophils # (Auto) 13.2 H 1.8-7.8 X 10^3 Lymphocytes # (Auto) 1.2 1.0-4.0 X 10^3 Monocytes # (Auto) 1.4 H 0.0-1.0 X 10^3 Eosinophils # (Auto) 0.0 0.0-0.3 10^3/uL Basophils # (Auto) 0.0 0.0-0.1 10^3/uL Neutrophils % (Manual) 89 % Lymphocytes % (Manual) 8 % Monocytes % (Manual) 3 % Blood Morphology Comment NORMAL Sodium Level 129 L 135-145 MMOL/L Potassium Level 3.7 3.6-5.0 MMOL/L Chloride Level 96 L 98-107 MMOL/L Carbon Dioxide Level 21 21-32 MMOL/L Anion Gap 12 5-14 MMOL/L Blood Urea Nitrogen 23 H 7-18 MG/DL Creatinine 0.77 0.60-1.30 MG/DL Estimat Glomerular Filtration Rate > 60 BUN/Creatinine Ratio 30 Glucose Level 120 H 70-105 MG/DL Uric Acid 3.5 2.6-7.2 MG/DL Calcium Level 9.5 8.5-10.1 MG/DL Magnesium Level 1.9 1.8-2.4 MG/DL Total Bilirubin 0.4 0.1-1.0 MG/DL Aspartate Amino Transf (AST/SGOT) 21 5-34 U/L Alanine Aminotransferase (ALT/SGPT) 21 0-55 U/L Alkaline Phosphatase 162 H 40-136 U/L Total Protein 6.3 L 6.4-8.2 GM/DL Albumin 3.6 3.2-4.5 GM/DL Urine Color YELLOW Urine Clarity CLEAR Urine pH 6.5 5-9 Urine Specific Josephine 1.010 L 1.016-1.022 Urine Protein NEGATIVE NEGATIVE Urine Glucose (UA) NEGATIVE NEGATIVE Urine Ketones NEGATIVE NEGATIVE Urine Nitrite NEGATIVE NEGATIVE Urine Bilirubin NEGATIVE NEGATIVE Urine Urobilinogen NORMAL NORMAL MG/DL Urine Leukocyte Esterase 1+ H NEGATIVE Urine RBC (Auto) NEGATIVE NEGATIVE Urine RBC NONE /HPF Urine WBC 10-25 H /HPF Urine Crystals NONE /LPF Urine Bacteria LARGE H /HPF Urine Casts NONE /LPF Urine Mucus NEGATIVE /LPF Urine Culture Indicated YES My Orders Orders - ESPERANZA LOVE MD Cbc With Automated Diff (09/10/17 09:28) Comprehensive Metabolic Panel (09/10/17 09:28) Magnesium (09/10/17 09:28) Ua Culture If Indicated (09/10/17 09:28) Abdomen/Kub 1view (09/10/17 09:28) Manual Differential (09/10/17 09:50) Uric Acid (09/10/17 10:27) Ct Abdomen/Pelvis W (09/10/17 10:43) Ns Iv 500 Ml (Sodium Chloride 0.9%) (09/10/17 10:43) Iohexol Injection (Omnipaque 350 Mg/Ml 1 (09/10/17 11:00) Ns (Ivpb) (Sodium Chloride 0.9%) (09/10/17 11:00) Contrast Received (Contrast Received) (09/10/17 11:00) Urine Culture (09/10/17 13:00) Hydrocodone/Apap 7.5/325 Tab (Lortab 7. (09/10/17 14:09) Medications Given in ED Current Medications Medications Dose Ordered Sig/Linda Route Start Time Stop Time Status Last Admin Dose Admin Iohexol 100 ml ONCE ONCE IV 09/10/17 11:00 09/10/17 11:01 DC 09/10/17 12:18 100 ML Sodium Chloride 250 ml ONCE ONCE IV 09/10/17 11:00 09/10/17 11:01 DC 09/10/17 12:18 80 ML Sodium Chloride 500 ml @ 0 mls/hr Q0M ONCE IV 09/10/17 10:43 09/10/17 10:44 DC 09/10/17 11:29 500 MLS/HR Vital Signs/I&O 09/10/17 09:18 Temp 98.6 Pulse 81 Resp 14 B/P (MAP) 147/81 (103) Pulse Ox 98 Blood Pressure Mean: 103 Progress Progress Note : Progress Note Seen and evaluated. IV, labs, UA and KUB ordered. Monitor patient. KUB does show moderate stool consistent with constipation. Patient does have elevated white count. In the setting of abdominal pain with history of diverticuli, we will go ahead and get CT abdomen and pelvis. Normal saline 500 mL bolus is been ordered as well. CT scan complete. I have discussed the case with the radiologist at 1300. We're pending UA results. There is concerns about subacute fractures and this is likely the cause of her pain. I did discuss the case with Dr. Amador and patient is okay for discharge home but will need follow-up. I will prescribe pain medicine. UA was positive. Patient has multiple drug allergies. We will wait for cultures. 1425: I did talk with the patient and discussed all the findings and concerns. She states that she has taken nitrofurantoin/Macrobid in the past she just had to take it with food. Given her recent cultures, this will cover her typical bugs. I will go ahead and prescribe this. Discharged home with return precautions. Patient verbalize understanding instructions and agreement with plan. Diagnostic Imaging Diagonstic Imaging: Xray Plain Films/CT/US/NM/MRI: abdomen [facility] [place] [place] NAME: MARGUERITE JORDAN [facility] REC#: [id number] PT STATUS: REG ER : 1930 PHYSICIAN: ESPERANZA LOVE MD ADMIT DATE: 09/10/17/ER Draft Date of Exam:09/10/17 ABDOMEN/KUB 1VIEW INDICATION: Abdominal pain and constipation. COMPARISON: CT abdomen and pelvis of 04/16/2017. FINDINGS: Nonobstructive bowel gas pattern. Moderate amount of colonic stool is present throughout the colon. Cholecystectomy. Degenerative changes of the SI joints and hips are seen. IMPRESSION: 1. Nonobstructive bowel gas pattern. 2. Moderate volume of colonic stool should correlate with patient's reported constipation. Dictated on workstation # [id number] Dict: 09/10/17 1027 Trans: 09/10/17 1035 [facility] [id number] Interpreted by: LYLY GONZALEZ MD Electronically signed by: Diagonstic Imaging: CT Plain Films/CT/US/NM/MRI: abdomen, pelvis Comments [facility] [place], [place] NAME[facility] [id number] PT STATUS: REG ER : 1930 PHYSICIAN: ESPERANZA LOVE MD ADMIT DATE: 09/10/17/ER Draft Date of Exam:09/10/17 CT ABDOMEN/PELVIS W PROCEDURE: CT abdomen and pelvis with contrast. TECHNIQUE: Multiple contiguous axial images were obtained through the abdomen and pelvis after administration of intravenous contrast. INDICATION: Pain and constipation. There is some stool in the colon but the colonic fecal load is not felt pathologic, no evidence for obstruction, impaction or substantial constipation. The appendix is unremarkable. There is a benign left lobe liver cyst, the gallbladder surgically absent with no pathological bile duct dilatation. There was a left upper pole renal cortical cyst, no hydronephrosis. The adrenals, spleen and pancreas were negative. There is no ascites, abscess, hematoma or fluid collection. The uterus, adnexa and urinary bladder had an unremarkable appearance. Having developed from a CT performed 04/16/2017, there is a fracture of the medial right pubic bone just adjacent to the symphysis involving that structure both superiorly and inferiorly. No widening of the symphysis and the components of the left obturator ring and pubic bone were intact no acetabular injury and the proximal femurs unremarkable with chronic degenerative changes noted chronic. There is also bilateral nonacute appearing sacral insufficiency type fracture patterns present with some sclerosis and partial visualization of cortical lucency anteriorly. This has developed from the study of April 2017. Appearing acute in the interim are bilateral L5 lumbar transverse process fractures with thoracolumbar statures unremarkable. The remaining transverse processes were intact. There is no spondylolysis defect. The visualized lower ribs unremarkable. IMPRESSION: 1. Fractures of the right medial pubic bone superiorly and inferiorly without symphyseal diastases. 2. Likely subacute fracture suggestive of insufficiency injuries involve the bilateral sacral ala having developed from the study of April of 2017. 3. Acute-appearing bilateral L5 lumbar transverse process fractures. 4. There were no findings of abdominal pelvic solid or hollow visceral injury and no hemorrhage found. There is a normal colonic fecal load with no bowel, biliary or urinary tract obstruction. These results were discussed by phone with the ER physician. Dictated on workstation # [id number] Dict: 09/10/17 1251 Trans: 09/10/17 1323 CV [id number] Interpreted by: NIVIA RASMUSSEN Electronically signed by: Departure Impression Primary Impression: Lumbar transverse process fracture Qualified Codes: S32.009A - Unspecified fracture of unspecified lumbar vertebra, initial encounter for closed fracture Additional Impressions: Sacral insufficiency fracture with routine healing Fracture of right superior pubic ramus Qualified Codes: S32.511A - Fracture of superior rim of right pubis, initial encounter for closed fracture Urinary tract infection Qualified Codes: N30.00 - Acute cystitis without hematuria Disposition: 01 HOME, SELF-CARE Condition: Improved Departure-Patient Inst. Decision time for Depature: 14:31 Referrals: SAMUEL AMADOR MD (PCP) Primary Care Physician LEIGH ANN BA APRN (Family) Primary Care Physician Patient Instructions: Pelvic Fracture (DC), Radiculopathy (DC), Urinary Tract Infection, Adult (DC) Add. Discharge Instructions: All discharge instructions reviewed with patient and/or family. Voiced understanding. You have stable fractures of the transverse process of the fifth lumbar vertebrae as well as stress fractures in the pelvis and the sacrum and pubic rami. You should walk with assistance with a walker. Take medications as prescribed. You may take one extra strength Tylenol/acetaminophen (500 mg) every 8 hours as needed for pain, not to exceed 3 pain pills and 3 Tylenol/ acetaminophen pills per day. Use should still get your MRI next week as scheduled. Follow-up with Dr. Amador next week for recheck and further evaluation. Return for worsening, fever, vomiting, weakness, breathing problems or other concerns as needed. You should take the antibiotics that were prescribed with food twice a day. Scripts Nitrofurantoin Macrocrystal (Nitrofurantoin) 100 Mg Capsule 100 MG PO BID, #14 CAP 0 Refills Prov: ESPERANZA LOVE MD 09/10/17 Hydrocodone Bit/Acetaminophen (Hydrocodone/Acetaminophen 5/325mg Tablet) 1 Tab Tab 1 EACH PO Q8H PRN for PAIN-MODERATE, #21 TAB 0 Refills Prov: ESPERANZA LOVE MD 09/10/17 ESPERANZA LOVE MD Sep 10, 2017 09:55
[2017-09-10 10:12] LABS: BASOPHILS % (AUTO) 0 % (0-10); EOSINOPHILS % (AUTO) 0 % (0-10); HEMATOCRIT 37 % (35-52); LYMPHOCYTES # (AUTO) 1.2 X 10^3 (1.0-4.0); LYMPHOCYTES % (AUTO) 8 % (12-44); MEAN CORPUSCULAR HEMOGLOBIN 33 PG (25-34); MEAN CORPUSCULAR HGB CONC 35 G/DL (32-36); MEAN CORPUSCULAR VOLUME 94 FL (80-99); MEAN PLATELET VOLUME 8.9 FL (7.4-10.4); MONOCYTES # (AUTO) 1.4 X 10^3 (0.0-1.0); MONOCYTES % (AUTO) 9 % (0-12); NEUTROPHILS # (AUTO) 13.2 X 10^3 (1.8-7.8); NEUTROPHILS % (AUTO) 83 % (42-75); PLATELET COUNT 341 10^3/uL (130-400); RED BLOOD COUNT 3.91 10^6/uL (4.35-5.85); RED CELL DISTRIBUTION WIDTH 12.7 % (10.0-14.5); WHITE BLOOD COUNT 15.8 10^3/uL (4.3-11.0)
[2017-09-10 10:29] LABS: ALANINE AMINOTRANSFERASE 21 U/L (0-55); ALBUMIN 3.6 GM/DL (3.2-4.5); ALKALINE PHOSPHATASE 162 U/L (40-136); BILIRUBIN,TOTAL 0.4 MG/DL (0.1-1.0); BUN/CREATININE RATIO 30; CALCIUM 9.5 MG/DL (8.5-10.1); CARBON DIOXIDE 21 MMOL/L (21-32); CHLORIDE 96 MMOL/L (98-107); CREATININE SERUM 0.77 MG/DL (0.60-1.30); GFR ESTIMATED > 60; GLUCOSE 120 MG/DL (70-105); MAGNESIUM 1.9 MG/DL (1.8-2.4); POTASSIUM 3.7 MMOL/L (3.6-5.0); SODIUM 129 MMOL/L (135-145); TOTAL PROTEIN 6.3 GM/DL (6.4-8.2)
--- NOTE | 2017-09-10 10:36 | Diagnostic Imaging Report ---
INDICATION: Abdominal pain and constipation. COMPARISON: CT abdomen and pelvis of 04/16/2017. FINDINGS: Nonobstructive bowel gas pattern. Moderate amount of colonic stool is present throughout the colon. Cholecystectomy. Degenerative changes of the SI joints and hips are seen. IMPRESSION: 1. Nonobstructive bowel gas pattern. 2. Moderate volume of colonic stool should correlate with patient's reported constipation. Dictated by: Dictated on workstation # [id number]
[2017-09-10 10:37] LABS: LYMPHOCYTES % (MANUAL) 8 %; MONOCYTES % (MANUAL) 3 %; NEUTROPHILS % (MANUAL) 89 %; RBC MORPH NORMAL
[2017-09-10] MEDS ORDERED: NS IV 500 ML 500 ML IV ONE (10:43)
[2017-09-10] MEDS ORDERED: IOHEXOL 350 MG/ML 100 ML (OMNIPAQUE 350) VIAL IV ONE (11:00)
[2017-09-10] MEDS ORDERED: RECEIVED CONTRAST (Hold Metformin) IV SCH (11:00)
[2017-09-10] MEDS ORDERED: NS 250 ML (IVPB) BAG IV ONE (11:00)
--- NOTE | 2017-09-10 13:24 | Diagnostic Imaging Report ---
PROCEDURE: CT abdomen and pelvis with contrast. TECHNIQUE: Multiple contiguous axial images were obtained through the abdomen and pelvis after administration of intravenous contrast. INDICATION: Pain and constipation. There is some stool in the colon but the colonic fecal load is not felt pathologic, no evidence for obstruction, impaction or substantial constipation. The appendix is unremarkable. There is a benign left lobe liver cyst, the gallbladder surgically absent with no pathological bile duct dilatation. There was a left upper pole renal cortical cyst, no hydronephrosis. The adrenals, spleen and pancreas were negative. There is no ascites, abscess, hematoma or fluid collection. The uterus, adnexa and urinary bladder had an unremarkable appearance. Having developed from a CT performed 04/16/2017, there is a fracture of the medial right pubic bone just adjacent to the symphysis involving that structure both superiorly and inferiorly. No widening of the symphysis and the components of the left obturator ring and pubic bone were intact no acetabular injury and the proximal femurs unremarkable with chronic degenerative changes noted chronic. There is also bilateral nonacute appearing sacral insufficiency type fracture patterns present with some sclerosis and partial visualization of cortical lucency anteriorly. This has developed from the study of April 2017. Appearing acute in the interim are bilateral L5 lumbar transverse process fractures with thoracolumbar statures unremarkable. The remaining transverse processes were intact. There is no spondylolysis defect. The visualized lower ribs unremarkable. IMPRESSION: 1. Fractures of the right medial pubic bone superiorly and inferiorly without symphyseal diastases. 2. Likely subacute fracture suggestive of insufficiency injuries involve the bilateral sacral ala having developed from the study of April of 2017. 3. Acute-appearing bilateral L5 lumbar transverse process fractures. 4. There were no findings of abdominal pelvic solid or hollow visceral injury and no hemorrhage found. There is a normal colonic fecal load with no bowel, biliary or urinary tract obstruction. These results were discussed by phone with the ER physician. Dictated by: Dictated on workstation # [id number]
[2017-09-10 13:36] LABS: BILIRUBIN,URINE NEGATIVE (NEGATIVE); CLARITY,URINE CLEAR; COLOR,URINE YELLOW; GLUCOSE, URINE (UA) NEGATIVE (NEGATIVE); KETONES,URINE NEGATIVE (NEGATIVE); LEUKOCYTE ESTERASE ,URINE 1+ (NEGATIVE); NITRITE,URINE NEGATIVE (NEGATIVE); PH,URINE 6.5 (5-9); PROTEIN,URINE NEGATIVE (NEGATIVE); UROBILINOGEN,URINE NORMAL (NORMAL)
[2017-09-10 13:42] LABS: BACTERIA,URINE LARGE /HPF
[2017-09-10] MEDS ORDERED: HYDROcodone/APAP 7.5 MG/325 MG (LORTAB, LORCET PLUS) TABLET PO STA (14:09)
[2017-09-10] MEDS ORDERED: ACHD5005 PO (14:36)
[2017-09-10] MEDS ORDERED: NITR100C PO (14:36)
[2017-09-10 14:55] VITALS: BP 136/71
[2017-09-11] MEDS ORDERED: LORA10CA PO (03:24)
[2017-09-11] MEDS ORDERED: L.AC1CAP6 PO (03:24)
[2017-09-11] MEDS ORDERED: CALC600T12 PO (03:24)
[2017-09-11] MEDS ORDERED: MEMA10TA22 PO (03:24)
[2017-09-11] MEDS ORDERED: MIRT15TA6 PO (03:24)
[2017-09-11] MEDS ORDERED: PRED5TAB PO (07:40)
[2017-09-11] MEDS ORDERED: ONDA4TAB11 PO (18:50)
[2017-09-11] MEDS ORDERED: PHEN-639 PO (18:50)
[2017-09-11] MEDS ORDERED: MELO7.5T46 PO (18:50)
[2017-09-11] MEDS ORDERED: PROP15DR OU (18:50)
[2017-09-11] MEDS ORDERED: CALC-140 PO (18:50)
[2017-09-11] MEDS ORDERED: TR1C15 TP (18:50)
[2017-09-11] MEDS ORDERED: SIME80TA16 PO (18:50)
[2017-09-11] MEDS ORDERED: LOSA25TA21 PO (18:55)
== END 2017-09-10 14:55 | disposition home or self-care (01) ==
LOC: EDUNIT# 09:16 → ER 09:16
DX: S32.19XA Other fracture of sacrum, initial encounter for closed fracture (principal); S32.058A Other fracture of fifth lumbar vertebra, initial encounter for closed fracture; S32.511A Fracture of superior rim of right pubis, initial encounter for closed fracture; N39.0 Urinary tract infection, site not specified; I10 Essential (primary) hypertension; K21.9 Gastro-esophageal reflux disease without esophagitis; F41.9 Anxiety disorder, unspecified; Z87.19 Personal history of other diseases of the digestive system; Z87.448 Personal history of other diseases of urinary system; Z88.2 Allergy status to sulfonamides; Z88.1 Allergy status to other antibiotic agents; Z88.8 Allergy status to other drugs, medicaments and biological substances; Z90.89 Acquired absence of other organs; X58.XXXA Exposure to other specified factors, initial encounter
CPT/HCPCS: 36415; 74018; 74177; 80053; 81000; 83735; 84550; 85007; 85027; 87088; 87186; 96360

== ENCOUNTER 2017-09-10 16:34 | Inpatient (IN) | payer MEDICARE ==
[~2017-09-10] VITALS: Ht 160 cm; Wt 75.5 kg
[~2017-09-10 16:34] MED LIST changes: +ACHD5005 PO; +NITR100C PO
--- NOTE | 2017-09-10 16:56 | ED Syncope ---
General Chief Complaint: Dizziness/Syncope Nursing Triage Note: States that when she arrived home after being discharged from ED, she tried to get out of car and passed out. States that her neighbors had to carry her to the house. Awake when she got to house. 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 Patient is awake, nondrowsy, follows commands and states that she has no pain except her top lip in numb Source of Information: Patient, EMS Exam Limitations: No Limitations History of Present Illness Date Seen by Provider: Sep 10, 2017 Time Seen by Provider: 16:38 Initial Comments Patient discharged less than an hour ago and returns by EMS after what appears to be a syncopal episode at home. She was transitioning out of the car and into the house with the assistance of 2 of her neighbors. She was having significant pain and then went unresponsive. They carried her into the couch and noticed that she was pale and sweaty. They noticed that she was shaking a little bit. EMS was called and she was improving by the time of arrival. They did initiate IV and initiated fluids. In route her vital signs improved and she is currently better now. Initially there is concerned about her being too sedated from pain medicines that were given earlier but she is fully alert and oriented now. Patient did have some numbness around her lips earlier but that has cleared as well as numbness of the left thumb that is cleared. Timing/Prior Episodes: Single Episode Today Symptoms Prior to Episode: Other (pain) Precipitating Factors: Activity, Emotional Stress, Other (pain) Loss of Consciousness: Brief (Seconds) Current Symptoms: Other (back pain) Allergies and Home Medications Allergies Coded Allergies: Sulfa (Sulfonamide Antibiotics) (Verified Allergy, Mild, 09/10/17) cephalexin (Verified Allergy, Mild, HIVES, 07/03/17) ciprofloxacin (Unverified Allergy, Unknown, NAUSEA, 04/16/17) estradiol (Unverified Allergy, Unknown, 04/16/17) estrogens, conjugated (Unverified Allergy, Unknown, 04/16/17) tramadol (Verified Allergy, Unknown, 10/01/16) nitrofurantoin (Verified Adverse Reaction, Unknown, NAUSEA, 03/28/16) Home Medications Alprazolam 0.25 Mg Tablet, 0.25 MG PO HS, (Reported) Cephalexin 500 Mg Capsule, 500 MG PO QID Prescribed by: PADMAJA HARDY on 07/03/17714 Hydrocodone Bit/Acetaminophen 1 Tab Tab, 1 EACH PO Q8H PRN for PAIN-MODERATE Prescribed by: ESPERANZA LOVE on 09/10/17 1436 Latanoprost 2.5 Ml Drops, 2.5 ML OP DAILY, (Reported) Losartan Potassium 50 Mg Tablet, 50 MG PO DAILY, (Reported) Melatonin 1 Mg Tablet, 1-2 MG PO HS PRN for INSOMNIA Prescribed by: PADMAJA HARDY on 07/03/17 07 Meloxicam 7.5 Mg Tablet, 7.5 MG PO DAILY, (Reported) Nitrofurantoin Macrocrystal 100 Mg Capsule, 100 MG PO BID Prescribed by: ESPERANZA LOVE on 09/10/17 143 Omeprazole 40 Mg Capsule.dr, 40 MG PO DAILY, (Reported) Ondansetron 8 Mg Tab.rapdis, 8 MG PO 4 times a day Prescribed by: ALONZO SON on 06/13/17 1559 Ondansetron 4 Mg Tab.rapdis, 4 MG SL Q4H PRN for NAUSEA/VOMITING-1ST LINE Prescribed by: PADMAJA HARDY on 07/03/17714 Polyethylene Glycol 3350 119 Gm Powder, 17 GM PO BID PRN for CONSTIPATION-1ST LINE Prescribed by: PADMAJA HARDY on 07/03/17714 [Antivert] , 25 MG 3 times a day 4 times daily when necessary dizziness Prescribed by: ALONZO SON on 06/13/17 1641 Patient Home Medication List Home Medication List Reviewed: Yes Constitutional: see HPI; No chills, No fever EENTM: no symptoms reported Respiratory: no symptoms reported; No cough, No short of breath Cardiovascular: No chest pain, No edema; syncope Gastrointestinal: No abdominal pain, No nausea, No vomiting Genitourinary: no symptoms reported Musculoskeletal: no symptoms reported Skin: no symptoms reported All Other Systems Reviewed Negative Unless Noted: Yes Past Avhcpid-Wlsngl-Ekodpk Hx Past Med/Social Hx: Reviewed Nursing Past Med/Soc Hx Patient Social History Alcohol Use: Denies Use Recreational Drug Use: No 2nd Hand Smoke Exposure: No Recent Foreign Travel: No Contact w/Someone Who Travel: No Recent Infectious Disease Expo: No Recent Hopitalizations: No Physical Abuse: No Sexual Abuse: No Mistreated: No Fear: No Immunizations Up To Date Tetanus Booster (TDap): Less than 5yrs Date of Pneumonia Vaccine: Jan 03, 2017 Date of Influenza Vaccine: Jan 03, 2017 Seasonal Allergies Seasonal Allergies: Yes Past Medical History Surgeries: Yes Adenoidectomy, Gallbladder, Tonsillectomy Respiratory: No Cardiac: Yes Hypertension Neurological: No Reproductive Disorders: No Sexually Transmitted Disease: No HIV/AIDS: No Genitourinary: Yes Bladder Infection, UTI-Chronic Gastrointestinal: Yes Gastroesophageal Reflux, Chronic Constipation Musculoskeletal: Yes (MILD) Arthritis Endocrine: No HEENT: No 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 Cancer: No Psychosocial: Yes Anxiety Nursing Suicide Risk Score: 0 Integumentary: Yes (SKIN TEARS FROM A DOG 06/20) Recent Skin Changes, Psoriasis Blood Disorders: No Adverse Reaction/Blood Tranf: No (N/A) Family Medical History Reviewed Nursing Family Hx No Pertinent Family Hx Physical Exam Vital Signs Vital Signs - First Documented 09/10/17 16:35 Temp 98.6 Pulse 67 Resp 15 B/P (MAP) 122/71 (88) Pulse Ox 98 O2 Delivery Nasal Cannula O2 Flow Rate 3.00 Capillary Refill : Less Than 3 Seconds General Appearance: No Apparent Distress, WD/WN HEENT: PERRL/EOMI, Pharynx Normal Neck: Non Tender, Supple Cardiovascular: Regular Rate, Rhythm, No Murmur Respiratory: Lungs Clear, Normal Breath Sounds Gastrointestinal: Non Tender, Soft Back: No CVA Tenderness Extremities: Normal Range of Motion, Pedal Edema (1+ bilateral lower extremities), Other (pain with moving both legs especially at the pelvis were known fractures are noted.) Neurologic/Psychiatric: Alert, Oriented x3, No Motor/Sensory Deficits, Normal Mood/Affect, 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 II-XII Norm as Tested Cranial Nerves: Normal Speech, PERRL Motor/Sensory: No Motor Deficit, No Sensory Deficit, No Pronator Drift Skin: Normal Color, Warm/Dry Progress/Results/Core Measures Results/Orders My Orders Orders - ESPERANZA LOVE MD Ct Head Wo (09/10/17 16:52) Ekg Tracing (09/10/17 16:52) Monitor-Rhythm Ecg Trace Only (09/10/17 16:52) General/Regular (09/10/17 Dinner) Lactic Acid Analyzer (09/10/17 18:46) Blood Culture (09/10/17 18:46) Meropenem (Merrem 500 Mg) (09/10/17 19:00) Vital Signs/I&O 09/10/17 16:35 Temp 98.6 Pulse 67 Resp 15 B/P (MAP) 122/71 (88) Pulse Ox 98 O2 Delivery Nasal Cannula O2 Flow Rate 3.00 Blood Pressure Mean: 88 Progress Progress Note : Progress Note Seen and evaluated. Due to repeat visit today and multiple episodes, we will check EKG and CT head. I do not believe labs will need to be repeated at this time given that the other ones were done recently. She is doing much better currently. Patient 0 on stroke scale. Monitor patient. 1824: I discussed the case with Dr. Pereira, on-call for Dr. Amador. Due to patient's inability to stand due to the acute fractures as well as her urinary tract infection in the setting of weakness and syncopal episode, patient will be admitted, inpatient status. 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 To cover her previous organisms satisfactorily and tell cultures are obtained, meropenem and vancomycin will be initiated. We have ordered lactic acid and blood cultures now and we'll give those prior to initiation of antibiotic. We have looked at labs from earlier today and will use those as baseline currently. I have discussed all this at length with patient and family and they agree. Patient is pain reduced currently and we will initiate pain medication regimen. This is complicated as patient has constipation and has difficulty with narcotics. MiraLAX will be initiated. Admit, inpatient status. Patient and family agree with plan. Initial ECG Impression Date: Sep 10, 2017 Initial ECG Impression Time: 17:45 Initial ECG Rate: 65 Initial ECG Rhythm: Normal Sinus Initial ECG Comparisson: Unchanged Comment Sinus rhythm with left axis deviation. LVH. No evidence of ST elevation VT. unchanged from previous. Interpreted by me. Diagnostic Imaging Diagonstic Imaging: CT Plain Films/CT/US/NM/MRI: head Comments [facility] [place], [place] NAME: [facility] REC#: [id number] PT STATUS: REG ER : 1930 PHYSICIAN: ESPERANZA LOVE MD ADMIT DATE: 09/10/17/ER Draft Date of Exam:09/10/17 CT HEAD WO INDICATION: Syncope. Weakness. TECHNIQUE: Routine non contrast-enhanced axial images were obtained from the skull base to the vertex. COMPARISON: 06/28/2016 FINDINGS: The ventricles and cortical sulci are diffusely prominent, compatible with age-related volume loss. There are confluent areas of abnormal, low attenuation in the periventricular white matter. This is consistent with chronic small vessel ischemic changes. There is no midline shift or mass-effect. No acute intra-axial hemorrhage is seen. There are no abnormal areas of increased or decreased density to suggest acute hemorrhage or edema. No extra-axial masses or collections are present. The bony calvarium is intact. The visualized paranasal sinuses are unremarkable. The mastoid air cells are clear. IMPRESSION: 1. No acute intracranial abnormality. No CT evidence of mass, acute infarct or intracranial hemorrhage. 2. Chronic small vessel ischemic changes in the deep white matter. Dictated on workstation # [id number] Dict: 09/10/17 1742 Trans: 09/10/17 1745 [id number] Interpreted by: KATHE JACOBS MD Electronically signed by: Departure Communication (Admissions) Time/Spoke to Admitting Phy: 18:25 Impression Primary Impression: Urinary tract infection Qualified Codes: N30.00 - Acute cystitis without hematuria Additional Impressions: Intractable pain Syncope Qualified Codes: R55 - Syncope and collapse Lumbar transverse process fracture Qualified Codes: S32.009D - Unspecified fracture of unspecified lumbar vertebra, subsequent encounter for fracture with routine healing Sacral insufficiency fracture Qualified Codes: M84.48XD - Pathological fracture, other site, subsequent encounter for fracture with routine healing Disposition: 09 ADMITTED INPATIENT Condition: Stable Admissions Decision to Admit Reason: Admit from ER (General) Decision to Admit/Date: Sep 10, 2017 Time/Decision to Admit Time: 18:25 Departure-Patient Inst. Referrals: SAMUEL AMADOR MD (PCP) Primary Care Physician LEIGH ANN BA APRN (Family) Primary Care Physician ESPERANZA LOVE MD Sep 10, 2017 16:56
--- NOTE | 2017-09-10 17:45 | Diagnostic Imaging Report ---
INDICATION: Syncope. Weakness. TECHNIQUE: Routine non contrast-enhanced axial images were obtained from the skull base to the vertex. COMPARISON: 06/28/2016 FINDINGS: The ventricles and cortical sulci are diffusely prominent, compatible with age-related volume loss. There are confluent areas of abnormal, low attenuation in the periventricular white matter. This is consistent with chronic small vessel ischemic changes. There is no midline shift or mass-effect. No acute intra-axial hemorrhage is seen. There are no abnormal areas of increased or decreased density to suggest acute hemorrhage or edema. No extra-axial masses or collections are present. The bony calvarium is intact. The visualized paranasal sinuses are unremarkable. The mastoid air cells are clear. IMPRESSION: 1. No acute intracranial abnormality. No CT evidence of mass, acute infarct or intracranial hemorrhage. 2. Chronic small vessel ischemic changes in the deep white matter. Dictated by: Dictated on workstation # [id number]
[2017-09-10] MEDS ORDERED: MEROPENEM 500 MG in NS (IVPB) 100 ML IV ONE (19:00)
--- OUTSIDE RECORDS SUMMARY | 2017-09-10 19:09 | XMS REPORT | Clinical Summary ---
Author Author [facility] Organization [facility] Address Unknown Phone Unavailable Care Team Providers Care Drilling Plant Operator Name Role Phone No Pcp, Na PCP Unavailable Source Comments Some departments are not documenting in the electronic medical record. If you do not see the information that you expected, contact Release of Information in the Health Information Management department at [phone] for further assistance in locating additional records.[facility] Allergies Active Allergy Reactions Severity Noted [...]
[2017-09-10 20:32] VITALS: BP 157/77
[2017-09-10] MEDS ORDERED: VANCOMYCIN 1 GM/NS 250 ML IVPB IV SCH ×2 (21:30)
[2017-09-10] MEDS ORDERED: ACETAMINOPHEN 500 MG TAB (TYLENOL) PO PRN (21:30)
[2017-09-10] MEDS ORDERED: ONDANSETRON 4 MG/2 ML (SDV) Z0FRAN IV PRN (21:30)
[2017-09-10] MEDS: NS IV 1000 ML 1,000 ML IV SCH (21:34)
[2017-09-10] MEDS: HYDROcodone/APAP 5 MG/325 MG (LORTAB) TAB PO PRN (21:59)
[2017-09-10] MEDS: fentaNYL INJECTION 100 MCG/2 ML AMP IV PRN (23:29)
[2017-09-10] MEDS: MEROPENEM 500 MG in NS (IVPB) 100 ML IV SCH (23:29)
[2017-09-11] VITALS: BP 146/63
[2017-09-11] MEDS ORDERED: CALC600T12 PO (03:24)
[2017-09-11] MEDS ORDERED: L.AC1CAP6 PO (03:24)
[2017-09-11] MEDS ORDERED: MEMA10TA22 PO (03:24)
[2017-09-11] MEDS ORDERED: MIRT15TA6 PO (03:24)
[2017-09-11] MEDS ORDERED: LORA10CA PO (03:24)
[2017-09-11 04:00] VITALS: BP 147/67
[2017-09-11] MEDS: MEROPENEM 500 MG in NS (IVPB) 100 ML IV SCH ×3 (05:14→21:13)
[2017-09-11 06:42] LABS: BASOPHILS % (AUTO) 0 % (0-10); EOSINOPHILS # (AUTO) 0.1 10^3/uL (0.0-0.3); EOSINOPHILS % (AUTO) 1 % (0-10); HEMATOCRIT 36 % (35-52); HEMOGLOBIN 12.4 G/DL (11.5-16.0); LYMPHOCYTES # (AUTO) 2.5 X 10^3 (1.0-4.0); LYMPHOCYTES % (AUTO) 23 % (12-44); MEAN CORPUSCULAR HEMOGLOBIN 33 PG (25-34); MEAN CORPUSCULAR HGB CONC 34 G/DL (32-36); MEAN CORPUSCULAR VOLUME 96 FL (80-99); MEAN PLATELET VOLUME 9.7 FL (7.4-10.4); MONOCYTES # (AUTO) 1.1 X 10^3 (0.0-1.0); MONOCYTES % (AUTO) 10 % (0-12); NEUTROPHILS # (AUTO) 6.9 X 10^3 (1.8-7.8); NEUTROPHILS % (AUTO) 65 % (42-75); PLATELET COUNT 304 10^3/uL (130-400); RED CELL DISTRIBUTION WIDTH 13.4 % (10.0-14.5); WHITE BLOOD COUNT 10.6 10^3/uL (4.3-11.0)
[2017-09-11] MEDS: HYDROcodone/APAP 5 MG/325 MG (LORTAB) TAB PO PRN ×2 (06:44→16:57)
[2017-09-11 07:20] LABS: ALANINE AMINOTRANSFERASE 16 U/L (0-55); ALBUMIN 3.3 GM/DL (3.2-4.5); ALKALINE PHOSPHATASE 160 U/L (40-136); BILIRUBIN,TOTAL 0.3 MG/DL (0.1-1.0); BUN/CREATININE RATIO 30; CALCIUM 8.5 MG/DL (8.5-10.1); CARBON DIOXIDE 17 MMOL/L (21-32); CHLORIDE 104 MMOL/L (98-107); GFR ESTIMATED > 60; GLUCOSE 74 MG/DL (70-105); POTASSIUM 4.7 MMOL/L (3.6-5.0); SODIUM 131 MMOL/L (135-145); TOTAL PROTEIN 5.8 GM/DL (6.4-8.2)
[2017-09-11] MEDS ORDERED: PRED5TAB PO (07:40)
[2017-09-11 08:00] VITALS: BP 140/61
[2017-09-11] MEDS ORDERED: POLYETHYLENE GLYCOL 17 GM (MIRALAX) PACK PO SCH (09:00)
[2017-09-11] MEDS: NS IV 1000 ML 1,000 ML IV SCH (11:10)
[2017-09-11] MEDS: fentaNYL INJECTION 100 MCG/2 ML AMP IV PRN ×3 (11:21→19:14)
[2017-09-11 12:00] VITALS: BP 152/69
--- NOTE | 2017-09-11 12:01 | History & Physical-Hospitalist ---
History of Present Illness HPI/Chief Complaint CC: Back pain with UTI HPI: This is an 87-year-old white female that had suffered some sort of falls that her recollection is not detailed considering a history of dementia who presents to the ER with complaints of back pain and pelvic pain. Patient was found to have fractures of the pubic bone superior and inferiorly and bilateral sacral ala in addition to bilateral L5 lumbar transverse process fractures who was seen in the ER sent home and her caretakers brought her into the house patient suffered some sort of vasovagal syncope patient was brought back to the ER. CT scan had shown transverse process fractures and pelvic fractures when she was in the ER earlier yesterday for severe constipation so she did have a large bowel movement in the ER before discharge but came back found to have UTI with severe resistance pattern on culture history so she was admitted placed on vancomycin and meropenem until urine culture returns in addition to IV medication for the lumbar spine transverse process and pubic bone fractures. Constipation will be managed accordingly to prevent narcotic bowel. Date Seen 09/11/17 Time Seen by Provider: 10:30 Attending Physician Lisette Pereira Holly A MD Referring Physician Date of Admission Sep 10, 2017 at 18:45 Home Medications & Allergies Home Medications Reviewed patient Home Medication Reconciliation performed by pharmacy medication reconciliations process development technician and/or nursing. Patients Allergies have been reviewed. Allergies Allergies Coded Allergies Sulfa (Sulfonamide Antibiotics) (Verified Allergy, Mild, 09/10/17) cephalexin (Verified Allergy, Mild, HIVES, 07/03/17) ciprofloxacin (Unverified Allergy, Unknown, NAUSEA, 04/16/17) estradiol (Unverified Allergy, Unknown, 04/16/17) estrogens, conjugated (Unverified Allergy, Unknown, 04/16/17) tramadol (Verified Allergy, Unknown, 10/01/16) nitrofurantoin (Verified Adverse Reaction, Unknown, NAUSEA, 03/28/16) Past Hruqbqa-Kiydhc-Jerzdb Hx Past Med/Social Hx: Reviewed Nursing Past Med/Soc Hx, Reviewed and Corrections made Patient Social History Marrital Status: single Employed/Student: retired Alcohol Use: Denies Use Recreational Drug Use: No Smoking Status: Never a Smoker 2nd Hand Smoke Exposure: No Physical Abuse Screen: No Sexual Abuse: No Recent Foreign Travel: No Contact w/other who traveled: No Recent Hopitalizations: No Recent Infectious Disease Expo: No Immunizations Up To Date Tetanus Booster (TDap): Less than 5yrs Date of Pneumonia Vaccine: Jan 03, 2017 Date of Influenza Vaccine: Jan 03, 2017 Seasonal Allergies Seasonal Allergies: Yes Past Medical History Surgeries: Adenoidectomy, Gallbladder, Tonsillectomy Cardiac: Hypertension Neurological: Dementia Reproductive: No Sexually Transmitted Disease: No HIV/AIDS: No Genitourinary: Bladder Infection, UTI-Chronic Gastrointestinal: Gastroesophageal Reflux, Chronic Constipation Musculoskeletal: Arthritis HEENT: Cataract, Glaucoma 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 Cancer: Skin Did You Recieve Any Treatments: Yes What Type of Treatment Did You: Surgical Intervention Psychosocial: Anxiety Skin/Integumentary: Recent Skin Changes, Psoriasis History of Blood Disorders: No Adverse Reaction to Blood Chun: No (N/A) Family History Reviewed Nursing Family Hx FH: dementia 19 MOTHER FH: stroke 19 FATHER No Pertinent Family Hx Review of Systems Constitutional: see HPI, weakness EENTM: no symptoms reported Respiratory: no symptoms reported Cardiovascular: no symptoms reported Gastrointestinal: constipation, nausea Genitourinary: decreased output Musculoskeletal: back pain, joint pain Skin: no symptoms reported Psychiatric/Neurological: No Symptoms Reported All Other Systems Reviewed Negative Unless Noted: Yes Physical Exam Physical Exam Vital Signs Vital Signs - First Documented 09/10/17 16:35 Temp 98.6 Pulse 67 Resp 15 B/P (MAP) 122/71 (88) Pulse Ox 98 O2 Delivery Nasal Cannula O2 Flow Rate 3.00 Capillary Refill : Less Than 3 SecondsLess Than 3 Seconds General Appearance: No Apparent Distress, WD/WN, Chronically ill Eyes: Bilateral Eye Normal Inspection, Bilateral Eye PERRL HEENT: PERRL/EOMI, Normal ENT Inspection, Pharynx Normal Neck: Full Range of Motion, Normal Inspection, Non Tender, Supple, Carotid Bruit Respiratory: Chest Non Tender, Lungs Clear, Normal Breath Sounds, No Accessory Muscle Use, No Respiratory Distress Cardiovascular: Regular Rate, Rhythm, No Edema, No Gallop, No JVD, No Murmur, Normal Peripheral Pulses Gastrointestinal: Normal Bowel Sounds, No Organomegaly, No Pulsatile Mass, Non Tender, Soft Back: Normal Inspection, No CVA Tenderness, No Vertebral Tenderness Extremity: Normal Capillary Refill, Normal Inspection, Non Tender, No Calf Tenderness, No Pedal Edema, Other (limited ROM due to back and pelvis pain) Neurologic/Psychiatric: Alert, Oriented x3, No Motor/Sensory Deficits, Normal Mood/Affect Skin: Normal Color, Warm/Dry Lymphatic: No Adenopathy Results Results/Procedures Labs Laboratory Tests 09/11/17 05:45 Patient resulted labs reviewed. Assessment/Plan Admission Diagnosis Assessment: UTI with resistance pattern placed on meropenem and vancomycin Fall with L5 transverse process fractures with pubic bone fractures with no surgical option Plan: Pain controlled with IV fentanyl and hydrocodone Narcotic bowel regimen Home meds Antibiotics Follow up on urine culture Fluid restriction and check labs in am Admission Status: Inpatient Order (span 2 midnights) Reason for Inpatient Admission: IV abx Vanc and Josh required until UCx completed along with L5 compression fractures will require 3 days in hospital Diagnosis/Problems Diagnosis/Problems (1) UTI (urinary tract infection) Status: Acute Assessment & Plan: 09/11 Broad spectrum with Josh and Vanc due to resistance pattern in the past of her UTI's Qualifiers: Urinary tract infection type: acute cystitis Hematuria presence: without hematuria Qualified Codes: N30.00 - Acute cystitis without hematuria (2) Hyponatremia Status: Acute Assessment & Plan: 09/11 Fluid restriction (3) Glaucoma Status: Chronic Assessment & Plan: 09/11 Home meds Qualifiers: Glaucoma type: unspecified Laterality: bilateral Qualified Codes: H40.9 - Unspecified glaucoma (4) Debility Status: Chronic Assessment & Plan: 09/11 Needs NHP (5) Dementia Status: Chronic Assessment & Plan: 09/11 Restart home meds Qualifiers: Dementia type: Alzheimer's disease Alzheimer's disease onset: unspecified onset Dementia behavioral disturbance: without behavioral disturbance Qualified Codes: G30.9 - Alzheimer's disease, unspecified; F02.80 - Dementia in other diseases classified elsewhere without behavioral disturbance (6) Lumbar transverse process fracture Status: Acute Assessment & Plan: 09/11 No surgical intervention option so give pain meds Qualifiers: Encounter type: subsequent encounter Fracture type: closed Fracture healing: with routine healing Qualified Codes: S32.009D - Unspecified fracture of unspecified lumbar vertebra, subsequent encounter for fracture with routine healing (7) Sacral insufficiency fracture Status: Acute Assessment & Plan: 09/11 No surgical intervention option so give pain meds Qualifiers: Encounter type: subsequent encounter Fracture healing: with routine healing Qualified Codes: M84.48XD - Pathological fracture, other site, subsequent encounter for fracture with routine healing (8) Intractable pain Status: Acute Assessment & Plan: 09/11 No surgical intervention option so give pain meds (9) Pelvic pain Status: Acute Assessment & Plan: 09/11 No surgical intervention option so give pain meds (10) Syncope Status: Acute Assessment & Plan: 09/11 Monitor only Qualifiers: Syncope type: unspecified Qualified Codes: R55 - Syncope and collapse (11) Constipation Status: Acute Assessment & Plan: 09/11 Bowel regimen Qualifiers: Constipation type: slow transit constipation Qualified Codes: K59.01 - Slow transit constipation (12) Prophylactic measure Status: Acute Assessment & Plan: Lovenox and SCD's for DVT Px Clinical Quality Measures DVT/VTE Risk/Contraindication: Risk Factor Score Per Nursin RFS Level Per Nursing on Admit: 3=High LISETTE PEREIRA DO Sep 11, 2017 12:01
[2017-09-11] MEDS: DOCUSATE SODIUM 100 MG (COLACE) CAP PO SCH ×2 (13:03→20:20)
[2017-09-11] MEDS: LACTULOSE SYRUP 10GM/15ML (ENULOSE) 30ML UDC PO SCH ×2 (13:03→20:20)
[2017-09-11] MEDS: ENOXAPARIN 40 MG/0.4 ML (LOVENOX) SYR SC SCH (13:04)
[2017-09-11] MEDS: POLYETHYLENE GLYCOL 17 GM (MIRALAX) PACK PO SCH ×2 (13:04→20:20)
[2017-09-11 16:32] VITALS: BP 121/65
[2017-09-11] MEDS ORDERED: CALC-140 PO (18:50)
[2017-09-11] MEDS ORDERED: MELO7.5T46 PO (18:50)
[2017-09-11] MEDS ORDERED: TR1C15 TP (18:50)
[2017-09-11] MEDS ORDERED: PHEN-639 PO (18:50)
[2017-09-11] MEDS ORDERED: ONDA4TAB11 PO (18:50)
[2017-09-11] MEDS ORDERED: PROP15DR OU (18:50)
[2017-09-11] MEDS ORDERED: SIME80TA16 PO (18:50)
[2017-09-11] MEDS ORDERED: LOSA25TA21 PO (18:55)
[2017-09-11 20:14] VITALS: BP 122/58
[2017-09-12] VITALS: BP 178/70
[2017-09-12] MEDS: fentaNYL INJECTION 100 MCG/2 ML AMP IV PRN ×3 (01:10→15:05)
[2017-09-12 04:00] VITALS: BP 186/78
[2017-09-12] MEDS ORDERED: amLODIPine 5 MG (NORVASC) TAB PO ONE (04:45)
[2017-09-12] MEDS: MEROPENEM 500 MG in NS (IVPB) 100 ML IV SCH ×3 (05:07→21:23)
[2017-09-12 06:03] LABS: BASOPHILS # (AUTO) 0.1 10^3/uL (0.0-0.1); BASOPHILS % (AUTO) 1 % (0-10); EOSINOPHILS # (AUTO) 0.2 10^3/uL (0.0-0.3); EOSINOPHILS % (AUTO) 2 % (0-10); HEMATOCRIT 35 % (35-52); HEMOGLOBIN 12.2 G/DL (11.5-16.0); LYMPHOCYTES % (AUTO) 20 % (12-44); MEAN CORPUSCULAR HEMOGLOBIN 34 PG (25-34); MEAN CORPUSCULAR HGB CONC 35 G/DL (32-36); MEAN CORPUSCULAR VOLUME 96 FL (80-99); MEAN PLATELET VOLUME 9.3 FL (7.4-10.4); MONOCYTES % (AUTO) 10 % (0-12); NEUTROPHILS # (AUTO) 6.6 X 10^3 (1.8-7.8); NEUTROPHILS % (AUTO) 67 % (42-75); PLATELET COUNT 335 10^3/uL (130-400); RED BLOOD COUNT 3.64 10^6/uL (4.35-5.85); RED CELL DISTRIBUTION WIDTH 13.3 % (10.0-14.5); WHITE BLOOD COUNT 9.8 10^3/uL (4.3-11.0)
[2017-09-12 06:36] LABS: ALANINE AMINOTRANSFERASE 18 U/L (0-55); ALBUMIN 3.1 GM/DL (3.2-4.5); ALKALINE PHOSPHATASE 166 U/L (40-136); BILIRUBIN,TOTAL 0.3 MG/DL (0.1-1.0); BUN/CREATININE RATIO 38; CARBON DIOXIDE 19 MMOL/L (21-32); CHLORIDE 104 MMOL/L (98-107); CREATININE SERUM 0.65 MG/DL (0.60-1.30); GFR ESTIMATED > 60; GLUCOSE 91 MG/DL (70-105); POTASSIUM 4.2 MMOL/L (3.6-5.0); SODIUM 134 MMOL/L (135-145); TOTAL PROTEIN 5.5 GM/DL (6.4-8.2)
[2017-09-12] MEDS: POLYETHYLENE GLYCOL 17 GM (MIRALAX) PACK PO SCH (08:02)
[2017-09-12] MEDS: LACTULOSE SYRUP 10GM/15ML (ENULOSE) 30ML UDC PO SCH (08:02)
[2017-09-12] MEDS: DOCUSATE SODIUM 100 MG (COLACE) CAP PO SCH ×2 (08:02→20:09)
[2017-09-12 08:44] VITALS: BP 178/72
[2017-09-12] MEDS: HYDROcodone/APAP 5 MG/325 MG (LORTAB) TAB PO PRN ×2 (08:44→17:30)
[2017-09-12] MEDS ORDERED: LATANOPROST 0.005% (XALATAN) OPHTH SOLN 2.5 ML OP SCH (09:00)
[2017-09-12] MEDS ORDERED: PATIENT MAY USE OWN MEDS, ALL MC SCH (11:00)
--- NOTE | 2017-09-12 11:00 | Progress Note-Hospitalist ---
Subjective HPI/CC On Admission Date Seen by Provider: Sep 12, 2017 Time Seen by Provider: 10:30 CC: Back pain with UTI HPI: This is an 87-year-old white female that had suffered some sort of falls that her recollection is not detailed considering a history of dementia who presents to the ER with complaints of back pain and pelvic pain. Patient was found to have fractures of the pubic bone superior and inferiorly and bilateral sacral ala in addition to bilateral L5 lumbar transverse process fractures who was seen in the ER sent home and her caretakers brought her into the house patient suffered some sort of vasovagal syncope patient was brought back to the ER. CT scan had shown transverse process fractures and pelvic fractures when she was in the ER earlier yesterday for severe constipation so she did have a large bowel movement in the ER before discharge but came back found to have UTI with severe resistance pattern on culture history so she was admitted placed on vancomycin and meropenem until urine culture returns in addition to IV medication for the lumbar spine transverse process and pubic bone fractures. Constipation will be managed accordingly to prevent narcotic bowel. Subjective/Events-last exam Patient reports that she is not feeling well today and every day at the new somatic complaint Slow to recover Needs to go to the custodial and she is agreeable to that Back pain is much improved Loose stools due to aggressive bowel regimen so we'll hold that Once take her own medicines and I allowed that to occur Norvasc given for hypertension [id number] and will schedule that daily Review of Systems General: Fatigue, Malaise Gastrointestinal: Diarrhea Musculoskeletal: back pain Focused Exam Lactate Level 09/10/17 19:08: Lactic Acid Level 1.10 Objective Exam Vital Signs Vital Signs Date Time Temp Pulse Resp B/P (MAP) Pulse Ox O2 Delivery O2 Flow Rate FiO2 09/12/17 16:00 97.7 95 18 154/85 (108) 97 Room Air 09/10/17 16:35 3.00 Capillary Refill : Less Than 3 SecondsLess Than 3 Seconds General Appearance: No Apparent Distress, WD/WN, Chronically ill Respiratory: Lungs Clear, Normal Breath Sounds Cardiovascular: Regular Rate, Rhythm Neurologic/Psychiatric: Alert, Oriented x3, No Motor/Sensory Deficits, Depressed Affect Results/Procedures Lab Laboratory Tests 09/12/17 05:15 Patient resulted labs reviewed. Assessment/Plan Assessment and Plan Assess & Plan/Chief Complaint Assessment: UTI with resistance pattern and multiple abx allergies L5 transverse processes fractures Plan: Hold bowel regimen HTN treatment wit Norvasc Allowing her to take her home meds Diagnosis/Problems Diagnosis/Problems (1) UTI (urinary tract infection) Status: Acute Assessment & Plan: 09/11 Broad spectrum with Josh and Vanc due to resistance pattern in the past of her UTI's 09/12 DC Vanc yesterday due to Klebsiella report from Micro but maintained on Meropenem unfortunately due to allergy profile Qualifiers: Urinary tract infection type: acute cystitis Hematuria presence: without hematuria Qualified Codes: N30.00 - Acute cystitis without hematuria (2) Hyponatremia Status: Acute Assessment & Plan: 09/11 Fluid restriction (3) Glaucoma Status: Chronic Assessment & Plan: 09/11 Home meds Qualifiers: Glaucoma type: unspecified Laterality: bilateral Qualified Codes: H40.9 - Unspecified glaucoma (4) Debility Status: Chronic Assessment & Plan: 09/11 Needs NHP (5) Dementia Status: Chronic Assessment & Plan: 09/11 Restart home meds Qualifiers: Dementia type: Alzheimer's disease Alzheimer's disease onset: unspecified onset Dementia behavioral disturbance: without behavioral disturbance Qualified Codes: G30.9 - Alzheimer's disease, unspecified; F02.80 - Dementia in other diseases classified elsewhere without behavioral disturbance (6) Lumbar transverse process fracture Status: Acute Assessment & Plan: 09/11 No surgical intervention option so give pain meds Qualifiers: Encounter type: subsequent encounter Fracture type: closed Fracture healing: with routine healing Qualified Codes: S32.009D - Unspecified fracture of unspecified lumbar vertebra, subsequent encounter for fracture with routine healing (7) Sacral insufficiency fracture Status: Acute Assessment & Plan: 09/11 No surgical intervention option so give pain meds Qualifiers: Encounter type: subsequent encounter Fracture healing: with routine healing Qualified Codes: M84.48XD - Pathological fracture, other site, subsequent encounter for fracture with routine healing (8) Intractable pain Status: Acute Assessment & Plan: 09/11 No surgical intervention option so give pain meds (9) Pelvic pain Status: Acute Assessment & Plan: 09/11 No surgical intervention option so give pain meds (10) Syncope Status: Acute Assessment & Plan: 09/11 Monitor only Qualifiers: Syncope type: unspecified Qualified Codes: R55 - Syncope and collapse (11) Constipation Status: Resolved Assessment & Plan: 09/11 Bowel regimen 09/12 Holding aggressive regimen due to loose stools today Qualifiers: Constipation type: slow transit constipation Qualified Codes: K59.01 - Slow transit constipation (12) Prophylactic measure Status: Acute Assessment & Plan: Lovenox and SCD's for DVT Px (13) Hypertension Status: Acute Qualifiers: Hypertension type: unspecified Qualified Codes: I10 - Essential (primary) hypertension (14) Loose stools Status: Acute Assessment & Plan: holding BM regimen Clinical Quality Measures DVT/VTE Risk/Contraindication: Risk Factor Score Per Nursin RFS Level Per Nursing on Admit: 3=High AKI CASEY DO Sep 12, 2017 11:00
[2017-09-12] MEDS ORDERED: ONDANSETRON 4 MG (ZOFRAN) ORAL DISSOLVE TAB PO PRN (11:15)
[2017-09-12] MEDS ORDERED: PHENAZOPYRIDINE 100 MG (PYRIDIUM) TABLET PO PRN (11:15)
[2017-09-12] MEDS ORDERED: TRIAMCINOLONE 0.1% CR (KENALOG) 15 GM TUBE TP PRN (11:15)
[2017-09-12] MEDS ORDERED: MELOXICAM 7.5 MG (MOBIC) TABLET PO PRN (11:15)
[2017-09-12] MEDS ORDERED: ARTIFICAL TEARS 0.4 ML UNIT DOSE (REFRESH PLUS) OU PRN (11:30)
[2017-09-12] MEDS: ENOXAPARIN 40 MG/0.4 ML (LOVENOX) SYR SC SCH (11:48)
[2017-09-12 12:00] VITALS: BP 181/92
[2017-09-12 16:00] VITALS: BP 154/85
[2017-09-12 20:00] VITALS: BP 145/64
[2017-09-12] MEDS: MIRTAZAPINE 15 MG (REMERON) TAB PO SCH (20:08)
[2017-09-12] MEDS: MEMANTINE 10 MG (NAMENDA) TABLET PO SCH (20:08)
[2017-09-12] MEDS: LATANOPROST 0.005% (XALATAN) OPHTH SOLN 2.5 ML OP SCH (20:08)
[2017-09-12] MEDS ORDERED: TROUGH ORDER-PHARMACY XX NR (20:30)
[2017-09-13] VITALS: BP 170/80
[2017-09-13 04:00] VITALS: BP 180/78
[2017-09-13] MEDS: MEROPENEM 500 MG in NS (IVPB) 100 ML IV SCH ×3 (05:39→21:10)
[2017-09-13] MEDS: predniSONE 5 MG TAB PO SCH (05:39)
[2017-09-13] MEDS: PANTOPRAZOLE 40 MG (PROTONIX) TAB PO SCH (05:39)
[2017-09-13 06:36] LABS: BASOPHILS % (AUTO) 0 % (0-10); EOSINOPHILS # (AUTO) 0.1 10^3/uL (0.0-0.3); EOSINOPHILS % (AUTO) 1 % (0-10); HEMATOCRIT 35 % (35-52); HEMOGLOBIN 12.1 G/DL (11.5-16.0); LYMPHOCYTES # (AUTO) 2.4 X 10^3 (1.0-4.0); LYMPHOCYTES % (AUTO) 22 % (12-44); MEAN CORPUSCULAR HEMOGLOBIN 33 PG (25-34); MEAN CORPUSCULAR HGB CONC 34 G/DL (32-36); MEAN CORPUSCULAR VOLUME 95 FL (80-99); MEAN PLATELET VOLUME 8.8 FL (7.4-10.4); MONOCYTES # (AUTO) 0.9 X 10^3 (0.0-1.0); MONOCYTES % (AUTO) 8 % (0-12); NEUTROPHILS # (AUTO) 7.6 X 10^3 (1.8-7.8); NEUTROPHILS % (AUTO) 69 % (42-75); PLATELET COUNT 354 10^3/uL (130-400); RED CELL DISTRIBUTION WIDTH 13.2 % (10.0-14.5); WHITE BLOOD COUNT 11.1 10^3/uL (4.3-11.0)
[2017-09-13 06:56] LABS: ALANINE AMINOTRANSFERASE 16 U/L (0-55); ALBUMIN 3.3 GM/DL (3.2-4.5); ALKALINE PHOSPHATASE 179 U/L (40-136); BILIRUBIN,TOTAL 0.4 MG/DL (0.1-1.0); BUN/CREATININE RATIO 28; CARBON DIOXIDE 23 MMOL/L (21-32); CHLORIDE 101 MMOL/L (98-107); CREATININE SERUM 0.65 MG/DL (0.60-1.30); GFR ESTIMATED > 60; GLUCOSE 88 MG/DL (70-105); POTASSIUM 3.8 MMOL/L (3.6-5.0); SODIUM 134 MMOL/L (135-145); TOTAL PROTEIN 5.5 GM/DL (6.4-8.2)
[2017-09-13 08:00] VITALS: BP 120/78
--- NOTE | 2017-09-13 09:25 | Progress Note ---
Focused Exam Lactate Level 09/10/17 19:08: Lactic Acid Level 1.10 Objective Exam Last Set of Vital Signs Vital Signs Date Time Temp Pulse Resp B/P (MAP) Pulse Ox O2 Delivery O2 Flow Rate FiO2 09/13/17 08:00 98.2 77 20 120/78 (92) 94 Room Air 09/10/17 16:35 3.00 Capillary Refill : Less Than 3 SecondsLess Than 3 Seconds I&O Intake and Output 09/13/17 00:00 Intake Total 2610 ml Output Total 103 ml Balance 2507 ml Intake Oral 1210 ml IV Total 1400 ml Output Urine Total 100 ml Stool Total 2 ml Urine/Stool Mix 1 ml # Voids 8 # Bowel Movements 7 Results Lab Laboratory Tests 09/13/17 06:06: White Blood Count 11.1H, Red Blood Count 3.70L, Hemoglobin 12.1, Hematocrit 35, Mean Corpuscular Volume 95, Mean Corpuscular Hemoglobin 33, Mean Corpuscular Hemoglobin Concent 34, Red Cell Distribution Width 13.2, Platelet Count 354, Mean Platelet Volume 8.8, Neutrophils (%) (Auto) 69, Lymphocytes (%) (Auto) 22, Monocytes (%) (Auto) 8, Eosinophils (%) (Auto) 1, Basophils (%) (Auto) 0, Neutrophils # (Auto) 7.6, Lymphocytes # (Auto) 2.4, Monocytes # (Auto) 0.9, Eosinophils # (Auto) 0.1, Basophils # (Auto) 0.0, Sodium Level 134L, Potassium Level 3.8, Chloride Level 101, Carbon Dioxide Level 23, Anion Gap 10, Blood Urea Nitrogen 18, Creatinine 0.65, Estimat Glomerular Filtration Rate > 60, BUN/ Creatinine Ratio 28, Glucose Level 88, Calcium Level 9.0, Total Bilirubin 0.4, Aspartate Amino Transf (AST/SGOT) 16, Alanine Aminotransferase (ALT/SGPT) 16, Alkaline Phosphatase 179H, Total Protein 5.5L, Albumin 3.3 Microbiology 09/10/17 Blood Culture - Preliminary, Resulted No growth Assessment/Plan Assessment/Plan Assess & Plan/Chief Complaint UTI TRANSVERSE PROCESS FX L5 MULTIPLE PELVIC FRACTURES WEAKNESS HYPERTENSION Clinical Quality Measures DVT/VTE Risk/Contraindication: Risk Factor Score Per Nursin RFS Level Per Nursing on Admit: 3=High SAMUEL NI MD Sep 13, 2017 09:25
[2017-09-13] MEDS: LORATADINE (CLARITIN) 10 MG TAB PO SCH (09:30)
[2017-09-13] MEDS: LACTOBACILLUS Acidoph/Bulgar (LACTINEX/FLORANEX) TAB PO SCH (09:30)
[2017-09-13] MEDS: MEMANTINE 10 MG (NAMENDA) TABLET PO SCH ×2 (09:30→21:08)
[2017-09-13] MEDS: DOCUSATE SODIUM 100 MG (COLACE) CAP PO SCH ×2 (09:30→21:08)
[2017-09-13] MEDS: CALCIUM CARB + VIT D 600 MG (CALCARB + D) TAB PO SCH (09:30)
[2017-09-13] MEDS: amLODIPine 5 MG (NORVASC) TAB PO SCH (09:30)
[2017-09-13] MEDS: LOSARTAN 50 MG (COZAAR) TAB PO SCH (09:30)
[2017-09-13] MEDS: SIMETHICONE 80 MG (MYLICON) CHEW PO SCH (09:31)
[2017-09-13] MEDS ORDERED: LORA10TA7 PO (10:00)
[2017-09-13] MEDS ORDERED: ACID1TAB5 PO (10:00)
[2017-09-13] MEDS ORDERED: POLY17PO6 PO (10:01)
[2017-09-13 12:00] VITALS: BP 166/83
[2017-09-13] MEDS: ENOXAPARIN 40 MG/0.4 ML (LOVENOX) SYR SC SCH (13:44)
[2017-09-13 16:30] VITALS: BP 164/75
[2017-09-13] MEDS: HYDROcodone/APAP 5 MG/325 MG (LORTAB) TAB PO PRN (19:40)
[2017-09-13 20:30] VITALS: BP 167/82
[2017-09-13] MEDS: MIRTAZAPINE 15 MG (REMERON) TAB PO SCH (21:14)
[2017-09-13] MEDS: LATANOPROST 0.005% (XALATAN) OPHTH SOLN 2.5 ML OP SCH (21:15)
[2017-09-14 00:03] VITALS: BP 161/78
[2017-09-14 04:48] VITALS: BP 162/82
[2017-09-14] MEDS: predniSONE 5 MG TAB PO SCH (05:44)
[2017-09-14] MEDS: MEROPENEM 500 MG in NS (IVPB) 100 ML IV SCH (05:44)
[2017-09-14] MEDS: PANTOPRAZOLE 40 MG (PROTONIX) TAB PO SCH (05:44)
[2017-09-14] MEDS: HYDROcodone/APAP 5 MG/325 MG (LORTAB) TAB PO PRN (05:46)
[2017-09-14 07:00] LABS: BASOPHILS # (AUTO) 0.1 10^3/uL (0.0-0.1); BASOPHILS % (AUTO) 1 % (0-10); EOSINOPHILS # (AUTO) 0.2 10^3/uL (0.0-0.3); EOSINOPHILS % (AUTO) 2 % (0-10); HEMATOCRIT 36 % (35-52); HEMOGLOBIN 12.6 G/DL (11.5-16.0); LYMPHOCYTES % (AUTO) 20 % (12-44); MEAN CORPUSCULAR HEMOGLOBIN 33 PG (25-34); MEAN CORPUSCULAR HGB CONC 35 G/DL (32-36); MEAN CORPUSCULAR VOLUME 96 FL (80-99); MEAN PLATELET VOLUME 9.5 FL (7.4-10.4); MONOCYTES # (AUTO) 0.9 X 10^3 (0.0-1.0); MONOCYTES % (AUTO) 9 % (0-12); NEUTROPHILS % (AUTO) 69 % (42-75); PLATELET COUNT 373 10^3/uL (130-400); RED CELL DISTRIBUTION WIDTH 13.2 % (10.0-14.5); WHITE BLOOD COUNT 10.2 10^3/uL (4.3-11.0)
[2017-09-14 07:44] LABS: ALANINE AMINOTRANSFERASE 16 U/L (0-55); ALBUMIN 3.4 GM/DL (3.2-4.5); ALKALINE PHOSPHATASE 188 U/L (40-136); BILIRUBIN,TOTAL 0.4 MG/DL (0.1-1.0); BUN/CREATININE RATIO 32; CALCIUM 9.2 MG/DL (8.5-10.1); CARBON DIOXIDE 23 MMOL/L (21-32); CHLORIDE 100 MMOL/L (98-107); CREATININE SERUM 0.65 MG/DL (0.60-1.30); GFR ESTIMATED > 60; GLUCOSE 83 MG/DL (70-105); POTASSIUM 3.8 MMOL/L (3.6-5.0); SODIUM 134 MMOL/L (135-145); TOTAL PROTEIN 5.6 GM/DL (6.4-8.2)
[2017-09-14] MEDS: LACTOBACILLUS Acidoph/Bulgar (LACTINEX/FLORANEX) TAB PO SCH (08:14)
[2017-09-14] MEDS: LORATADINE (CLARITIN) 10 MG TAB PO SCH (08:15)
[2017-09-14] MEDS: LOSARTAN 50 MG (COZAAR) TAB PO SCH (08:15)
[2017-09-14] MEDS: SIMETHICONE 80 MG (MYLICON) CHEW PO SCH (08:15)
[2017-09-14] MEDS: MEMANTINE 10 MG (NAMENDA) TABLET PO SCH (08:15)
[2017-09-14] MEDS: DOCUSATE SODIUM 100 MG (COLACE) CAP PO SCH (08:15)
[2017-09-14] MEDS: amLODIPine 5 MG (NORVASC) TAB PO SCH (08:15)
[2017-09-14] MEDS: CALCIUM CARB + VIT D 600 MG (CALCARB + D) TAB PO SCH (08:15)
[2017-09-14] MEDS ORDERED: AMOX-358 PO (08:39)
[2017-09-14] MEDS ORDERED: DOCU100C37 PO (08:39)
[2017-09-14] MEDS ORDERED: ACHD5005 PO (08:39)
[2017-09-14] MEDS ORDERED: LACT1CAP87 PO (08:39)
[2017-09-14] MEDS ORDERED: LOSA50TA36 PO (08:39)
--- NOTE | 2017-09-14 08:42 | Discharge Inst-Skilled Nursing ---
[facility]charge [facility] Patient Instructions Patient Problems: PELVIC FRACTURE URINARY TRACT INFECTION (ACUTE ON CHRONIC) HYPERTENSION DEMENTIA BACK PAIN DUE TO L5 TRANSVERSE PROCESS FX DEPRESSION CONSTIPATION Goal: HOME WITH IN-HOME CARE Consult/Follow Up/Orders Follow Up Appt.: 1 WK WITH [facility] Skilled NF Admit to: [facility] ([facility]) I certify that SNF services are required to be given on an inpatient basis because of the above named patient's need for detention care on a continuing basis for the conditions(s) for which he/she was receiving inpatient hospital services prior to his/her transfer to the SNF. [facility] Facility Order: Nursing Services, Support Merchandiser-Evaluate & Treat, Physical Therapy-Evaluate & Treat Discharge Diet: Regular Diet Daily Activity as Tolerated: Yes New & Resume Previous Orders Samuel Amador Sep 14, 2017 08:40 Medication List: Active Scripts Active Acidophilus Lactobacilli (Lactobacillus Acidophilus) 1 Each Capsule 1 Each PO TID Docusate Sodium 100 Mg Capsule 100 Mg PO BID Augmentin 875-125 Tablet (Amoxicillin/Potassium Clav) 1 Each Tablet 1 Each PO BID 7 Days Hydrocodone/Acetaminophen 5/325mg Tablet (Acetaminophen/Hydrocodone Bitart) 1 Tab Tab 1 Tab PO Q8H PRN Losartan Potassium 50 Mg Tablet 50 Mg PO DAILY Reported Miralax (Polyethylene Glycol 3350) 17 Gm Powd.pack 17 Gm PO BID Loratadine 10 Mg Tablet 10 Mg PO 0800 Lactinex Chewable Tablet (L. Acidophilus/Bulgaricus) 1 Each Tab.chew 1 Tab.chew PO 0800 Losartan Potassium 25 Mg Tablet 50 Mg PO 0800 TAKES 2 (25MG) TABS Calcium + Vitamin D Tablet (Calcium Carbonate/Vitamin D3) 1 Each Tablet 1 Tab PO 0800 Meloxicam 7.5 Mg Tablet 7.5 Mg PO DAILY PRN Triamcinolone Acetonide 0.1% Cream (Triamcinolone Acet) 15 Gm Cr 1 Applic TP BID PRN Systane 0.3-0.4% Eye Drops (Propylene Glycol/Peg 400) 15 Ml Drops 1 Drop OU Q8H PRN Ondansetron Odt (Ondansetron) 4 Mg Tab.rapdis 4 Mg PO DAILY PRN Pyridium (Phenazopyridine HCl) 100 Mg Tablet 100 Mg PO TID PRN Simethicone 80 Mg Tab.chew 160 Mg PO 0800 Prednisone 5 Mg Tablet 5 Mg PO 0800 Mirtazapine 15 Mg Tablet 15 Mg PO 2000 Memantine HCl 10 Mg Tablet 10 Mg PO 08,1999 Citalopram HBr (Citalopram Hydrobromide) 10 Mg Tablet 10 Mg PO 0800 Latanoprost 2.5 Ml Drops 1 Drop OU 1999 Omeprazole 40 Mg Capsule.dr 40 Mg PO 0800 Lab results: Laboratory Tests Test 09/14/17 05:36 Range/Units White Blood Count 10.2 4.3-11.0 10^3/uL Red Blood Count 3.80 L 4.35-5.85 10^6/uL Hemoglobin 12.6 11.5-16.0 G/DL Hematocrit 36 35-52 % Mean Corpuscular Volume 96 80-99 FL Mean Corpuscular Hemoglobin 33 25-34 PG Mean Corpuscular Hemoglobin Concent 35 32-36 G/DL Red Cell Distribution Width 13.2 10.0-14.5 % Platelet Count 373 130-400 10^3/uL Mean Platelet Volume 9.5 7.4-10.4 FL Neutrophils (%) (Auto) 69 42-75 % Lymphocytes (%) (Auto) 20 12-44 % Monocytes (%) (Auto) 9 0-12 % Eosinophils (%) (Auto) 2 0-10 % Basophils (%) (Auto) 1 0-10 % Neutrophils # (Auto) 7.0 1.8-7.8 X 10^3 Lymphocytes # (Auto) 2.0 1.0-4.0 X 10^3 Monocytes # (Auto) 0.9 0.0-1.0 X 10^3 Eosinophils # (Auto) 0.2 0.0-0.3 10^3/uL Basophils # (Auto) 0.1 0.0-0.1 10^3/uL Sodium Level 134 L 135-145 MMOL/L Potassium Level 3.8 3.6-5.0 MMOL/L Chloride Level 100 98-107 MMOL/L Carbon Dioxide Level 23 21-32 MMOL/L Anion Gap 11 5-14 MMOL/L Blood Urea Nitrogen 21 H 7-18 MG/DL Creatinine 0.65 0.60-1.30 MG/DL Estimat Glomerular Filtration Rate > 60 BUN/Creatinine Ratio 32 Glucose Level 83 70-105 MG/DL Calcium Level 9.2 8.5-10.1 MG/DL Total Bilirubin 0.4 0.1-1.0 MG/DL Aspartate Amino Transf (AST/SGOT) 19 5-34 U/L Alanine Aminotransferase (ALT/SGPT) 16 0-55 U/L Alkaline Phosphatase 188 H 40-136 U/L Total Protein 5.6 L 6.4-8.2 GM/DL Albumin 3.4 3.2-4.5 GM/DL My orders: Orders - SAMUEL AMADOR MD Psychopaedic Nurse Consult (09/13/17 09:25) General/Regular (09/13/17 Dinner) Attending Discharge Inpt/Inobs (09/14/17 08:34) SAMUEL AMADOR MD Sep 14, 2017 08:42
--- NOTE | 2017-09-14 08:44 | Discharge Summary ---
Diagnosis/Chief Complaint Date of Admission Sep 10, 2017 at 18:45 Date of Discharge Discharge Date: Sep 14, 2017 Discharge Time: 1000 Admission Diagnosis Admission Diagnosis PELVIC FRACTURE URINARY TRACT INFECTION (ACUTE ON CHRONIC) HYPERTENSION DEMENTIA BACK PAIN DUE TO L5 TRANSVERSE PROCESS FX DEPRESSION CONSTIPATION Discharge Diagnosis PELVIC FRACTURE URINARY TRACT INFECTION (ACUTE ON CHRONIC) HYPERTENSION DEMENTIA BACK PAIN DUE TO L5 TRANSVERSE PROCESS FX DEPRESSION CONSTIPATION Discharge Summary Discharge Physical Examination Allergies: Coded Allergies: Sulfa (Sulfonamide Antibiotics) (Verified Allergy, Mild, 09/10/17) cephalexin (Verified Allergy, Mild, HIVES, 07/03/17) ciprofloxacin (Unverified Allergy, Unknown, NAUSEA, 04/16/17) estradiol (Unverified Allergy, Unknown, 04/16/17) estrogens, conjugated (Unverified Allergy, Unknown, 04/16/17) tramadol (Verified Allergy, Unknown, 10/01/16) nitrofurantoin (Verified Adverse Reaction, Unknown, NAUSEA, 03/28/16) Vitals & I&Os Vital Signs Date Time Temp Pulse Resp B/P (MAP) Pulse Ox O2 Delivery O2 Flow Rate FiO2 09/14/17 04:48 98.0 71 17 162/82 (108) 95 Room Air 09/10/17 16:35 3.00 Hospital Course PELVIC FRACTURE URINARY TRACT INFECTION (ACUTE ON CHRONIC) HYPERTENSION DEMENTIA BACK PAIN DUE TO L5 TRANSVERSE PROCESS FX DEPRESSION CONSTIPATION Pending Labs Laboratory Tests 09/14/17 05:36: White Blood Count 10.2, Red Blood Count 3.80, Hemoglobin 12.6, Hematocrit 36, Mean Corpuscular Volume 96, Mean Corpuscular Hemoglobin 33, Mean Corpuscular Hemoglobin Concent 35, Red Cell Distribution Width 13.2, Platelet Count 373, Mean Platelet Volume 9.5, Neutrophils (%) (Auto) 69, Lymphocytes (%) (Auto) 20, Monocytes (%) (Auto) 9, Eosinophils (%) (Auto) 2, Basophils (%) (Auto) 1, Neutrophils # (Auto) 7.0, Lymphocytes # (Auto) 2.0, Monocytes # (Auto) 0.9, Eosinophils # (Auto) 0.2, Basophils # (Auto) 0.1, Sodium Level 134, Potassium Level 3.8, Chloride Level 100, Carbon Dioxide Level 23, Anion Gap 11, Blood Urea Nitrogen 21, Creatinine 0.65, Estimat Glomerular Filtration Rate > 60, BUN/ Creatinine Ratio 32, Glucose Level 83, Calcium Level 9.2, Total Bilirubin 0.4, Aspartate Amino Transf (AST/SGOT) 19, Alanine Aminotransferase (ALT/SGPT) 16, Alkaline Phosphatase 188, Total Protein 5.6, Albumin 3.4 Discharge Instructions to patient/family Please see electronic discharge instructions given to patient. Discharge Medications Reviewed and agree with Discharge Medication list on patient's Discharge Instruction sheet Clinical Quality Measures DVT/VTE Risk/Contraindication: Risk Factor Score Per Nursin RFS Level Per Nursing on Admit: 3=High SAMUEL NI MD Sep 14, 2017 08:44
[2017-09-14 08:55] VITALS: BP 160/92
[2017-09-14] MEDS: ENOXAPARIN 40 MG/0.4 ML (LOVENOX) SYR SC SCH (11:00)
[2017-09-14 12:00] VITALS: BP 186/80
== END 2017-09-14 12:35 | DRG 543 ==
LOC: EDUNIT# 16:34 → ER 16:35 → 4TH 18:45
PROVIDERS: ADMIT Internal Medicine; ATTEND Internal Medicine
DX: M84.48XA Pathological fracture, other site, initial encounter for fracture (principal); N30.00 Acute cystitis without hematuria; S32.009A Unspecified fracture of unspecified lumbar vertebra, initial encounter for closed fracture; E87.1 Hypo-osmolality and hyponatremia; F32.9 Major depressive disorder, single episode, unspecified; R55 Syncope and collapse; H40.9 Unspecified glaucoma; R20.0 Anesthesia of skin; Z66 Do not resuscitate; G30.9 Alzheimer's disease, unspecified; F02.80 Dementia in other diseases classified elsewhere, unspecified severity, without behavioral disturbance, psychotic disturbance, mood disturbance, and anxiety; K59.01 Slow transit constipation; J30.2 Other seasonal allergic rhinitis; I10 Essential (primary) hypertension; K21.9 Gastro-esophageal reflux disease without esophagitis; M19.91 Primary osteoarthritis, unspecified site; F41.9 Anxiety disorder, unspecified; L40.9 Psoriasis, unspecified; R19.5 Other fecal abnormalities; R53.1 Weakness; W19.XXXA Unspecified fall, initial encounter; Z85.828 Personal history of other malignant neoplasm of skin; Z97.4 Presence of external hearing-aid; Z88.1 Allergy status to other antibiotic agents
CPT/HCPCS: 36415; 70450; 80053; 83605; 85025; 87040; 93005; 93041; 96374

== ENCOUNTER → 2017-09-22 | Outpatient (CLI) | payer MEDICARE ==
[~2017-09-22] MED LIST changes: +ACID1TAB5 PO; +AMOX-358 PO; +CALC-140 PO; +CALC600T12 PO; +DOCU100C37 PO; +L.AC1CAP6 PO; +LACT1CAP87 PO; +LORA10CA PO; +LORA10TA7 PO; +LOSA25TA21 PO; +MEMA10TA22 PO; +MIRT15TA6 PO; +ONDA4TAB11 PO; +PHEN-639 PO; +POLY17PO6 PO; +PROP15DR OU; +SIME80TA16 PO; +TR1C15 TP
--- NOTE | 2017-09-22 16:27 | Diagnostic Imaging Report ---
PROCEDURE: MRI lumbar spine. TECHNIQUE: Multiplanar, multisequence MRI of the lumbar spine was performed without contrast. DATE: September 22, 2017. COMPARISON: Lumbar spine radiographs September 07, 2017. CT abdomen and pelvis September 10, 2017. INDICATION: 87-year-old female, fall 2 weeks ago. Right hip pain with pain radiating down the right leg. FINDINGS: The alignment of the lumbar spine is unremarkable. There are bilateral sacral ala fractures with transverse fracture component of the sacrum at the level of S2. There is offset of the anterior cortex of S1 and S2 by approximately 2.4 mm. There is no identified compression fracture of the lumbar spine or visualized lower thoracic spine. There are bilateral L5 transverse process fractures. There is no evidence of diffuse marrow infiltrating or replacing process. The visualized cord and conus medullaris is unremarkable and terminates at the L1 level. There is mild disc height loss at L3-L4. There is severe disc height loss at L4-L5. There is mild disc height loss at L5-S1. There is partially visualized T2 hyperintense left renal lesion not well evaluated on this exam. L1-L2: There is mild diffuse disc bulge. There are mild bilateral facet degenerative changes. There is no foraminal narrowing. There is very mild spinal canal stenosis. L2-L3: There is no disc bulge. The facet joints and ligamentum flavum are unremarkable. There is no foraminal narrowing. There is no spinal canal stenosis. L3-L4: There is diffuse disc bulge. There are mild bilateral facet degenerative changes with ligamentum flavum hypertrophy. There is moderate bilateral foraminal narrowing. There is severe spinal canal stenosis. L4-L5: There is diffuse disc bulge which is asymmetric to the left. There are mild bilateral facet degenerative changes with ligamentum flavum hypertrophy. There is severe bilateral foraminal narrowing. There is severe spinal canal stenosis. L5-S1: There is diffuse disc bulge. There are moderate bilateral facet degenerative changes with trace left facet joint effusion. There is no prominent ligamentum flavum hypertrophy. There is mild bilateral foraminal narrowing. There is moderate to severe spinal canal stenosis. IMPRESSION: 1. Bilateral sacral ala fractures with transversely oriented fracture component of the sacrum at the level of S2. Slight offset of the anterior cortex of S1 and S2. 2. Bilateral L5 transverse process fractures. 3. Multilevel advanced disc and facet degenerative changes of the lumbar spine, most notable at L3-L4, L4-L5, and L5-S1. Dictated by: Dictated on workstation # [id number]
== END ==
LOC: RAD 15:10
PROVIDERS: ATTEND Nurse Practitioner Family
DX: S32.10XA Unspecified fracture of sacrum, initial encounter for closed fracture (principal); S32.058A Other fracture of fifth lumbar vertebra, initial encounter for closed fracture; M51.37 Other intervertebral disc degeneration, lumbosacral region
CPT/HCPCS: 72148

== ENCOUNTER → 2017-12-14 | Outpatient (CLI) | payer MEDICARE ==
[~2017-12-14] MED LIST changes: -LOSA25TA21 PO; +LOSA25TA6 PO; -LOSA50TA36 PO; +LOSA50TA7 PO
--- NOTE | 2017-12-14 17:31 | Diagnostic Imaging Report ---
INDICATION: Fall one week ago with pain in the coccyx region. TIME OF EXAM: 5:26 p.m. FINDINGS: The SI joints and symphysis are non-widened. Rami appear to be intact. There is generalized demineralization of the sacrum and coccyx, limiting evaluation. The anterior cortex of the upper coccyx is somewhat ill defined on the lateral view, and a fracture at this location cannot be entirely excluded. There is no displacement. No other abnormalities are seen. Femoroacetabular alignment is maintained. IMPRESSION: Limited study due to significant demineralization of the sacrum and coccyx. Anterior cortex of the proximal coccyx is not well seen, and a fracture at this location cannot be entirely excluded. There is no displacement or abnormal angulation. Dictated by: Dictated on workstation # [id number]
== END ==
LOC: RAD 16:53
PROVIDERS: ATTEND Family Medicine
DX: M53.3 Sacrococcygeal disorders, not elsewhere classified (principal); W19.XXXA Unspecified fall, initial encounter
CPT/HCPCS: 72220

== ENCOUNTER → 2017-12-23 | Outpatient (CLI) | payer MEDICARE ==
--- NOTE | 2017-12-23 11:42 | Diagnostic Imaging Report ---
Indication: Lumbar spine fractures. No prior studies available for comparison. Bone mineral analysis of the lumbar spine and both hips was performed. Bone mineral density of the lumbar spine L2-L4 is 0.974 with a T score -1.9. Bone mineral density of the left femoral neck is 0.712 with T score -2.3. Bone mineral density of the right femoral neck is 0.630 with T score -2.9. 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 Dictated by: Dictated on workstation # [id number]
== END ==
LOC: RAD 09:21
PROVIDERS: ATTEND Nurse Practitioner Family
DX: M85.88 Other specified disorders of bone density and structure, other site (principal); S32.009A Unspecified fracture of unspecified lumbar vertebra, initial encounter for closed fracture
CPT/HCPCS: 77080

== ENCOUNTER → 2018-03-01 | Outpatient (CLI) | payer MEDICARE ==
--- NOTE | 2018-03-03 10:56 | Diagnostic Imaging Report ---
Indication: Routine screening. Comparison is made with prior mammogram from 03/18/2016 and 02/15/2015. 2-D and 3-D bilateral screening mammography was performed with CAD. Scattered fibroglandular densities are identified bilaterally. Benign calcifications are noted. No spiculated mass or malignant-appearing microcalcifications are seen. The axillae are unremarkable. Impression: BI-RADS category 2. No mammographic features suspicious for malignancy are identified. ACR BI-RADS Category 2: Benign findings. Result letter will be mailed to the patient. Note: At least 10% of breast cancer is not imaged by mammography. Dictated by: Dictated on workstation # [id number]
== END ==
LOC: RAD 10:01
PROVIDERS: ATTEND Obstetrics & Gynecology
DX: Z12.31 Encounter for screening mammogram for malignant neoplasm of breast (principal)
CPT/HCPCS: 77067

== ENCOUNTER → 2018-07-04 | Outpatient (CLI) | payer MEDICARE ==
[~2018-07-04] VITALS: Ht 160 cm; Wt 72.7 kg
[~2018-07-04] MED LIST changes: +DENOSUMAB 60 MG/1 ML (PROLIA) SQ SCH; +LOSA25TA41 PO; -LOSA25TA6 PO; +LOSA50TA63 PO; -LOSA50TA7 PO
[2018-07-04 13:15] VITALS: BP 139/66
== END ==
LOC: SDC 12:59
PROVIDERS: ATTEND Nurse Practitioner Family
DX: M81.0 Age-related osteoporosis without current pathological fracture (principal)
CPT/HCPCS: 96372

== ENCOUNTER → 2018-08-19 | Outpatient (CLI) | payer MEDICARE ==
[~2018-08-19] MED LIST changes: -DENOSUMAB 60 MG/1 ML (PROLIA) SQ SCH
[2018-08-19 16:58] LABS: BILIRUBIN,URINE NEGATIVE (NEGATIVE); CLARITY,URINE CLEAR; COLOR,URINE YELLOW; GLUCOSE, URINE (UA) NEGATIVE (NEGATIVE); KETONES,URINE NEGATIVE (NEGATIVE); LEUKOCYTE ESTERASE ,URINE 2+ (NEGATIVE); NITRITE,URINE POSITIVE (NEGATIVE); PH,URINE 6 (5-9); PROTEIN,URINE NEGATIVE (NEGATIVE); UROBILINOGEN,URINE NORMAL (NORMAL)
[2018-08-19 17:04] LABS: BACTERIA,URINE TRACE /HPF; RBC,URINE 0-2 /HPF
== END ==
LOC: LAB 16:40
PROVIDERS: ATTEND Nurse Practitioner Family
DX: R82.998 Other abnormal findings in urine (principal)
CPT/HCPCS: 81000; 87077; 87088

== ENCOUNTER → 2019-01-03 | Outpatient (CLI) | payer MEDICARE ==
[~2019-01-03] VITALS: Ht 162 cm; Wt 68.0 kg
[~2019-01-03] MED LIST changes: +DENOSUMAB 60 MG/1 ML (PROLIA) SQ ONE
[2019-01-03 13:12] VITALS: BP 153/78
== END ==
LOC: SDC 12:39
PROVIDERS: ATTEND Nurse Practitioner Family
DX: M81.0 Age-related osteoporosis without current pathological fracture (principal)
CPT/HCPCS: 96372

== ENCOUNTER → 2019-02-08 | Outpatient (CLI) | payer MEDICARE ==
[~2019-02-08] MED LIST changes: -DENOSUMAB 60 MG/1 ML (PROLIA) SQ ONE
--- NOTE | 2019-02-08 14:51 | Diagnostic Imaging Report ---
INDICATION: Jaw pain. COMPARISON: None. FINDINGS: Single Panorex view was obtained. Left temporomandibular joint space is not entirely included in the [id number], but otherwise, the joint spaces appear appropriate. Inferior portions of the left mandible are also not entirely included on this exam, but included portions of the mandible are intact without evidence of acute fracture. Patient is nearly completely edentulous. A few mandibular teeth remain centrally. Patient is status post previous dental intervention to these teeth. Despite this, multiple prominent lucencies are noted suggestive of underlying dental caries. Patient's maxilla is edentulous. No unexpected radiopaque foreign bodies are seen. IMPRESSION: 1. Panorex view as above. Dictated by: Dictated on workstation # [id number]
== END ==
LOC: RAD 14:10
PROVIDERS: ATTEND Nurse Practitioner Family
DX: R68.84 Jaw pain (principal)
CPT/HCPCS: 70355

== ENCOUNTER → 2019-02-22 | Outpatient (CLI) | payer MEDICARE ==
--- NOTE | 2019-02-22 16:38 | Diagnostic Imaging Report ---
INDICATION: Routine screening. COMPARISON: 03/01/2018 and 03/18/2016. TECHNIQUE: 2D and 3D bilateral screening mammography was performed with CAD. FINDINGS: Scattered fibroglandular densities are identified bilaterally. The parenchymal pattern is stable. No mass or malignant appearing microcalcifications are seen. The axillae are unremarkable. There are benign calcifications. IMPRESSION: No mammographic features suspicious for malignancy are identified. ACR BI-RADS Category 2: Benign findings. Result letter will be mailed to the patient. Note: At least 10% of breast cancer is not imaged by mammography. Dictated by: Dictated on workstation # [id number]
== END ==
LOC: RAD 11:21
PROVIDERS: ATTEND Nurse Practitioner Family
DX: Z12.31 Encounter for screening mammogram for malignant neoplasm of breast (principal)
CPT/HCPCS: 77067